=== PATIENT | female | born 1945 | race Caucasian/White ===

== ENCOUNTER 2016-09-20 18:57 | Inpatient (IN) | payer MEDICARE ==
[2016-09-20] MEDS ORDERED: SODIUM CHLORIDE 0.9% 1,000 ML IV STA (19:21)
[2016-09-20] MEDS ORDERED: MAGNESIUM SULFATE-D5W PMX 1 GM in DEXTROSE/WATER 1 100ML.BAG IVPB STA (19:21)
[2016-09-20] MEDS ORDERED: methylPREDNISolone SOD SUCCI 125 MG/2 ML VIAL IV STA (19:21)
[2016-09-20] MEDS ORDERED: EPINEPHrine 1 MG/ML 1 ML AMP IM STA (19:22)
[2016-09-20] MEDS ORDERED: LORazepam 2 MG/ML SYRINGE IV STA (19:23)
--- NOTE | 2016-09-20 19:24 | ED ---
SOB HPI - General Chief Complaint: Shortness of Breath Stated Complaint: GAIL Time Seen by Provider: 09/20/16 19:00 Source: EMS, RN notes reviewed Mode of arrival: EMS Limitations: no limitations - History of Present Illness Initial Comments: This is a 71-year-old female history of COPD who presents with complaints of 2- 3 days of worsening shortness of breath. He was brought in by EMS she did refuse updrafts and BiPAP. She states it makes it worse. She currently is still refusing nebulizer treatment or BiPAP. [place] shortness of breath some chest tightness no fevers chills or sweats she has a cough with no phlegm production. MD Complaint: shortness of breath - Related Data Home Medications Medication Instructions Recorded Confirmed Albuterol Sulfate [Proair Hfa] 2 puff INHALATION RT-Q4H PRN 10/29/13 09/20/16 Aspirin/Acetaminophen/Caffeine 1 tab PO TID PRN 10/29/13 09/20/16 [Excedrin Extra Strength Caplet] Budesonide/Formoterol Fumarate 2 puff INHALATION RT-BID 10/29/13 09/20/16 [Symbicort 160-4.5 Mcg Inhaler] Isosorbide Mononitrate ER [Imdur] 30 mg PO DAILY 10/29/13 09/20/16 Theophylline 24 Hour [Benigno-24] 300 mg PO DAILY 10/29/13 09/20/16 Cholecalciferol [Vitamin D3] 2,000 unit PO DAILY 12/07/14 09/20/16 Ipratropium/Albuterol Sulfate 1 puff INHALATION RT-QID PRN 09/23/15 09/20/16 [Combivent Respimat Inhaler] Lisinopril [Zestril] 20 mg PO DAILY 09/23/15 09/20/16 Hydrocortisone [Cortef] 20 mg PO HS 10/25/15 09/20/16 Tiotropium 18 Mcg/Puff [Spiriva] 1 cap INHALATION RT-DAILY 09/20/16 09/20/16 Allergies Allergy/AdvReac Type Severity Reaction Status Date / Time levofloxacin [From Levaquin] AdvReac Nausea & Verified 09/20/16 19:58 Vomiting & Diarrhea Review of Systems ROS Statement: Those systems with pertinent positive or pertinent negative responses have been documented in the HPI. ROS Other: All systems not noted in ROS Statement are negative. Past Medical History Past Medical History: COPD, Hypertension, Respiratory Disorder Additional Past Medical History / Comment(s): COPD, O2 dependent at 2L/NC ATC, steroid dependent, emphysema, purulent tracheobronchitis, bronchitis, UTI. History of Any Multi-Drug Resistant Organisms: None Reported Past Surgical History: Tubal Ligation Past Anesthesia/Blood Transfusion Reactions: No Reported Reaction Additional Past Anesthesia/Blood Transfusion Reaction / Comment(s): Pt has never recieved blood. Past Psychological History: No Psychological Hx Reported Additional Psychological History / Comment(s): Pt's leobardo (Lisa) lives with her. Pt is O2 dependent at 2L/NC. She uses no assistive device. 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 she performs her own ADLs. She manages her own medications. Smoking Status: Former smoker Past Alcohol Use History: Rare Additional Past Alcohol Use History / Comment(s): Pt started smoking in 1962 and quit in 2012 Past Drug Use History: None Reported - Past Family History Father History Unknown: Yes Family Medical History: No Reported History Mother Family Medical History: Coronary Artery Disease (CAD), Myocardial Infarction (AR ) Additional Family Medical History / Comment(s): Mother had CABG General Exam - General Exam Comments Initial Comments: This a well-developed well-nourished awake alert anxious appearing female she is hyperventilating she is not really wheezing Limitations: no limitations General appearance: alert, anxious, in distress Head exam: Present: atraumatic, normocephalic, normal inspection Eye exam: Present: normal appearance, PERRL, EOMI. Absent: scleral icterus, conjunctival injection, periorbital swelling ENT exam: Present: normal exam, mucous membranes moist Neck exam: Present: normal inspection. Absent: tenderness, meningismus, lymphadenopathy Respiratory exam: Present: respiratory distress, wheezes, accessory muscle use, decreased breath sounds. Absent: rales, rhonchi, stridor Cardiovascular Exam: Present: normal rhythm, tachycardia, normal heart sounds. Absent: systolic murmur, diastolic murmur, rubs, gallop, clicks GI/Abdominal exam: Present: soft, normal bowel sounds. Absent: distended, tenderness, guarding, rebound, rigid Extremities exam: Present: normal inspection, full ROM, normal capillary refill. Absent: tenderness, pedal edema, joint swelling, calf tenderness Back exam: Present: normal inspection Neurological exam: Present: alert, oriented X3, CN II-XII intact Psychiatric exam: Present: normal affect, normal mood Skin exam: Present: warm, dry, intact, normal color. Absent: rash Course Vital Signs 09/20/16 09/20/16 09/20/16 18:58 19:19 19:44 Temperature 98.8 F Pulse Rate 125 H 107 H 105 H Respiratory 28 H 28 H 26 H Rate Blood Pressure 254/123 210/98 193/87 O2 Sat by Pulse 96 94 L 93 L Oximetry 09/20/16 09/20/16 09/20/16 20:11 20:32 21:02 Temperature Pulse Rate 107 H 108 H 111 H Respiratory 22 22 22 Rate Blood Pressure 189/87 177/80 127/65 O2 Sat by Pulse 95 97 97 Oximetry 09/20/16 21:32 Temperature Pulse Rate 109 H Respiratory 20 Rate Blood Pressure 140/67 O2 Sat by Pulse 96 Oximetry - Reevaluation(s) Reevaluation #1: 09/20/16 22:13 I did reevaluate the patient on several occasions she is feeling somewhat better was so wheezing and dyspneic. She is so uncomfortable with the idea try to use a nebulizer. Medical Decision Making - Medical Decision Making I did discuss findings with the patient family she is still dyspneic though improved. She will be admitted with evaluation by pulmonary medicine. She has agreed to try nebulizer. - Lab Data Result diagrams: 09/20/16 19:17 09/20/16 19:17 Lab Results 09/20/16 09/20/16 09/20/16 Range/Units 19:17 19:17 19:17 WBC 6.8 (3.8-10.6) k/uL RBC 4.44 (3.80-5.40) m/uL Hgb 14.5 (11.4-16.0) gm/dL Hct 43.1 (34.0-46.0) % MCV 97.1 (80.0-100.0) fL MCH 32.8 (25.0-35.0) pg MCHC 33.7 (31.0-37.0) g/dL RDW 14.7 (11.5-15.5) % Plt Count 282 (150-450) k/uL Neutrophils % (Manual) 60.0 % Band Neutrophils % 1.0 % Lymphocytes % (Manual) 23.0 % Monocytes % (Manual) 12.0 % Eosinophils % (Manual) 2.0 % Basophils % (Manual) 2.0 % Neutrophils # (Manual) 4.1 (1.3-7.7) k/uL Lymphocytes # (Manual) 1.6 (1.0-4.8) k/uL Monocytes # (Manual) 0.8 (0-1.0) k/uL Eosinophils # (Manual) 0.1 (0-0.7) k/uL Basophils # (Manual) 0.1 (0-0.2) k/uL Nucleated RBCs 0 (0-0) /100 WBC Manual Slide Review Performed PT (9.0-12.0) sec INR (<1.1) APTT (22.0-30.0) sec D-Dimer (<0.60) mg/L FEU Sodium 137 (137-145) mmol/L Potassium 4.4 (3.5-5.1) mmol/L Chloride 98 (98-107) mmol/L Carbon Dioxide 28 (22-30) mmol/L Anion Gap 11 mmol/L BUN 12 (7-17) mg/dL Creatinine 0.44 L (0.52-1.04) mg/dL Est GFR (MDRD) Af Amer >60 (>60 ml/min/1.73 sqM) Est GFR (MDRD) Non-Af >60 (>60 ml/min/1.73 sqM) Glucose 99 (74-99) mg/dL Calcium 9.4 (8.4-10.2) mg/dL Magnesium 1.8 (1.6-2.3) mg/dL Total Bilirubin 0.8 (0.2-1.3) mg/dL AST 30 (14-36) U/L ALT 20 (9-52) U/L Alkaline Phosphatase 64 (38-126) U/L Total Creatine Kinase 110 (30-135) U/L CK-MB (CK-2) 2.3 (0.0-2.4) ng/mL CK-MB (CK-2) Rel Index 2.1 Troponin I <0.012 (0.000-0.034) ng/mL NT-Pro-B Natriuret Pep pg/mL Total Protein 7.3 (6.3-8.2) g/dL Albumin 4.3 (3.5-5.0) g/dL 09/20/16 09/20/16 Range/Units 19:17 19:17 WBC (3.8-10.6) k/uL RBC (3.80-5.40) m/uL Hgb (11.4-16.0) gm/dL Hct (34.0-46.0) % MCV (80.0-100.0) fL MCH (25.0-35.0) pg MCHC (31.0-37.0) g/dL RDW (11.5-15.5) % Plt Count (150-450) k/uL Neutrophils % (Manual) % Band Neutrophils % % Lymphocytes % (Manual) % Monocytes % (Manual) % Eosinophils % (Manual) % Basophils % (Manual) % Neutrophils # (Manual) (1.3-7.7) k/uL Lymphocytes # (Manual) (1.0-4.8) k/uL Monocytes # (Manual) (0-1.0) k/uL Eosinophils # (Manual) (0-0.7) k/uL Basophils # (Manual) (0-0.2) k/uL Nucleated RBCs (0-0) /100 WBC Manual Slide Review PT 10.2 (9.0-12.0) sec INR 1.0 (<1.1) APTT 22.7 (22.0-30.0) sec D-Dimer 0.62 H (<0.60) mg/L FEU Sodium (137-145) mmol/L Potassium (3.5-5.1) mmol/L Chloride (98-107) mmol/L Carbon Dioxide (22-30) mmol/L Anion Gap mmol/L BUN (7-17) mg/dL Creatinine (0.52-1.04) mg/dL Est GFR (MDRD) Af Amer (>60 ml/min/1.73 sqM) Est GFR (MDRD) Non-Af (>60 ml/min/1.73 sqM) Glucose (74-99) mg/dL Calcium (8.4-10.2) mg/dL Magnesium (1.6-2.3) mg/dL Total Bilirubin (0.2-1.3) mg/dL AST (14-36) U/L ALT (9-52) U/L Alkaline Phosphatase (38-126) U/L Total Creatine Kinase (30-135) U/L CK-MB (CK-2) (0.0-2.4) ng/mL CK-MB (CK-2) Rel Index Troponin I (0.000-0.034) ng/mL NT-Pro-B Natriuret Pep 175 pg/mL Total Protein (6.3-8.2) g/dL Albumin (3.5-5.0) g/dL - EKG Data -: EKG Interpreted by Me EKG shows normal: sinus rhythm (Sinus tachycardia with a rate of 108 a [place] interval 124 QRS duration 78 QT/QTC of 332/[address] configuration. Artifact is present) - Radiology Data Radiology results: report reviewed (I did review the imaging and reports), image reviewed Critical Care Time Critical Care Time: Yes Critical Care Time: 31 minutes of critical care time which includes initial presentation with history physical lab and x-ray. Evaluation to responsive therapy. Reevaluation several occasions. Discussion with the admitting service. Admission orders and documentation of the above. Disposition Clinical Impression: Acute exacerbation of chronic obstructive airways disease, Adult respiratory distress syndrome Disposition: ADMITTED IP TO THIS HOSP Condition: Stable
[2016-09-20 19:41] LABS: Aty Lym Flag Slight; CHCM 33.1; HCT 43.1 % (34.0-46.0); HDW 2.66; HGB 14.5 gm/dL (11.4-16.0); MCH 32.8 pg (25.0-35.0); MCHC 33.7 g/dL (31.0-37.0); MCV 97.1 fL (80.0-100.0); Mean Platelet Volume 10.1; RBC 4.44 m/uL (3.80-5.40); RDW 14.7 % (11.5-15.5); WBC 6.8 k/uL (3.8-10.6); WBC (Perox) 7.53
[2016-09-20 20:04] LABS: ALT 20 U/L (9-52); AST 30 U/L (14-36); Alkaline Phosphatase 64 U/L (38-126); Anion Gap 11 mmol/L; Blood Urea Nitrogen 12 mg/dL (7-17); Calcium 9.4 mg/dL (8.4-10.2); Carbon Dioxide 28 mmol/L (22-30); Chloride 98 mmol/L (98-107); Glucose 99 mg/dL (74-99); Magnesium 1.8 mg/dL (1.6-2.3); Non-African American GFR(MDRD) >60 (>60 ml/min/1.73 sqM); Potassium 4.4 mmol/L (3.5-5.1); Sodium 137 mmol/L (137-145); Total Bilirubin 0.8 mg/dL (0.2-1.3); Total Protein 7.3 g/dL (6.3-8.2)
[2016-09-20 20:09] LABS: Creatine Kinase 110 U/L (30-135)
[2016-09-20 20:11] LABS: Partial Thromboplastin Time 22.7 sec (22.0-30.0); Prothrombin Time 10.2 sec (9.0-12.0)
[2016-09-20 20:21] LABS: Creatine Kinase MB 2.3 ng/mL (0.0-2.4); Troponin I <0.012 ng/mL (0.000-0.034)
--- NOTE | 2016-09-20 20:21 | XR ---
EXAMINATION TYPE: XR chest 2V DATE OF EXAM: 09/20/2016 8:00 PM COMPARISON: 04/10/2016 HISTORY: Short of breath TECHNIQUE: Frontal and lateral views of the chest are obtained. FINDINGS: There is no heart failure nor confluent pneumonic infiltrate. There is pulmonary hyperinfl ation. Thoracic aorta is atheromatous. There are no hilar masses. There is 25% anterior wedging of an upper thoracic vertebra. IMPRESSION: COPD. No acute lung disease. No change compared to old exam.
[2016-09-20 20:31] LABS: Add Differential Manual Differential
[2016-09-20 20:32] LABS: Nucleated Red Blood Cells 0 /100 WBC (0-0); Total Cells Counted 100
[2016-09-20 20:33] LABS: Manual Review Performed
[2016-09-20] MEDS ORDERED: IPRATROPIUM-ALBUTEROL 3 ML NEB INHALATION PRN (22:18)
[2016-09-21] MEDS: methylPREDNISolone SOD SUCCI 125 MG/2 ML VIAL IV SCH ×5 (00:23→23:50)
[2016-09-21] MEDS: SODIUM CHLORIDE 0.9% 1,000 ML IV SCH ×3 (00:24→23:48)
[2016-09-21 00:38] VITALS: BMI 22.9
[2016-09-21 07:30] LABS: Glucose,Whole Blood 129 mg/dL (75-99)
[2016-09-21] MEDS: LEVALBUTEROL NEB 1.25 MG/3 ML AMP INHALATION SCH ×2 (07:30→11:29)
[2016-09-21] MEDS ORDERED: TIOTROPIUM 18 MCG/PUFF INHALER INHALATION SCH (08:00)
[2016-09-21] MEDS: ISOSORBIDE MONONITRATE ER 30 MG TAB.ER.24H PO SCH (08:27)
[2016-09-21] MEDS: THEOPHYLLINE 24 HOUR 300 MG CAP.ER.24H PO SCH (08:27)
[2016-09-21] MEDS: LISINOPRIL 20 MG TAB PO SCH (08:27)
[2016-09-21 12:00] LABS: Glucose,Whole Blood 111 mg/dL (75-99)
[2016-09-21] MEDS ORDERED: IPRATROPIUM-ALBUTEROL 3 ML NEB INHALATION PRN (14:44)
[2016-09-21] MEDS ORDERED: SYMBICORT 160-4.5 MCG INHALER INHALATION SCH ×2 (15:00→20:00)
--- NOTE | 2016-09-21 15:39 | HP ---
DATE OF ADMISSION: 09/20/2016 CHIEF COMPLAINT: Shortness of breath. HISTORY OF PRESENT ILLNESS: This 71-year-old woman with a past medical history of multiple medical problems, including COPD, hypertension, history of chronic hypoxic respiratory failure, on home oxygen 2 L nasal cannula, being followed by Dr. Cummings in the outpatient setting, was not feeling well for the past several days. Patient had increasing shortness of breath and cough and sputum. Patient came to the ER and was admitted for further evaluation and treatment. The patient apparently received updrafts and BiPAP per EMS. The patient also had pulse ox around 86 on oxygen. Patient is extremely short of breath, unable to even complete short sentences at this time. Dr. Pendleton's evaluation is in progress. There is no history of any fever, rigor, or chills. No history of any headache, loss of consciousness, seizures. PAST MEDICAL HISTORY: 1. COPD. 2. Hypertension. 3. History of chronic respiratory failure. 4. History of tracheobronchitis. 5. UTI. 6. Tubal ligation. HOME MEDICATIONS: 1. Spiriva 1 puff daily. 2. Benigno-24 300 mg daily. 3. Zestril 20 mg daily. 4. Imdur 30 mg daily. 5. Combivent 1 puff q.i.d. p.r.n. 6. Cortef 20 mg at bedtime. 7. Vitamin D3 2000 units. 8. Symbicort 160/4.5 two puffs b.i.d. 9. Excedrin 1 tablet t.i.d. p.r.n. 10. ProAir HFA 2 puffs q.4 p.r.n. ALLERGIES: LATEX and LEVAQUIN. FAMILY HISTORY: Mother had CABG. No history of heart disease or strokes in the family. SOCIAL HISTORY: Previous history of smoking. Occasional alcohol intake. REVIEW OF SYSTEMS: ENT: No diminishing hearing. No diminished vision. CARDIOVASCULAR SYSTEM: No angina, palpitations. RESPIRATORY SYSTEM: As mentioned earlier. GI: No nausea, vomiting. : No dysuria. NERVOUS SYSTEM: No numbness or weakness. ALLERGY/IMMUNOLOGY: No asthma, hayfever. MUSCULOSKELETAL: As mentioned earlier. HEMATOLOGY/ONCOLOGY: No history of anemia. ENDOCRINE: No history of diabetes, hypothyroidism. CONSTITUTIONAL: As mentioned earlier. DERMATOLOGY: Negative. RHEUMATOLOGY: Negative. PSYCHIATRY: As mentioned earlier. PHYSICAL EXAMINATION: Patient is alert and oriented x3. Pulse is 51, blood pressure 150/72, respiration 22. Extremely short of breath. Temperature 97.7, pulse ox 94% on 2 L, 86% on 4 L. HEENT: Conjunctivae normal. Oral mucosa moist. NECK: Accessory muscles of respiration acting. Extremely short of breath. CARDIOVASCULAR SYSTEM: S1, S2 muffled. No S3. No S4. RESPIRATORY SYSTEM: Breath sounds diminished at the bases. Bilateral scattered rhonchi and expiratory wheezing and crackles present. ABDOMEN: Soft, nontender. No mass palpable. Scaphoid. LEGS: No edema. No swelling. NERVOUS SYSTEM: Higher functions as mentioned earlier. Moves all 4 limbs. No focal motor or sensory deficit. LYMPHATICS: No lymph node palpable in neck, axillae or groin. SKIN: No ulcer, rash, bleeding. LABS: CBC within normal limits. D-dimer is 0.62. Creatinine 0.44. Accu-Cheks 129. ASSESSMENT: 1. Chronic obstructive pulmonary disease, acute exacerbation, with acute purulent tracheobronchitis with acute hypoxic respiratory failure. 2. Chronic hypoxic respiratory failure, on home oxygen at 2 liters nasal cannula. 3. History of hypertension, essential. 4. History of urinary tract infection. 5. Remote history of nicotine dependence. 6. D-dimer 0.62, just about normal. 7. Increased random blood sugar possibly secondary to steroids. RECOMMENDATIONS AND DISCUSSION: In this 71-year-old woman who presented with multiple complex medical issues, we will monitor the patient closely, continue the current medication, continue symptomatic treatment. Otherwise, continue the intensive bronchodilator treatment. I would also recommend IV steroids. Monitor blood sugars closely. Dr. Pendleton is consulted. Guarded prognosis because of the multiple complex medical issues. I would also recommend monitoring the saturation as well. ABG has been ordered and we will review the reports along with Dr. Pendleton. Further recommendations to follow. Once again, the patient is extremely short of breath at rest; unable to complete full sentences.
[2016-09-21] MEDS: FORMOTEROL FUMARATE 20 MCG/2 ML NEBU INHALATION SCH (15:54)
[2016-09-21] MEDS: BUDESONIDE 1 MG/2 ML NEBU INHALATION SCH (15:55)
[2016-09-21] MEDS ORDERED: LEVALBUTEROL NEB (CONC) 1.25 MG/0.5 ML AMP INHALATION SCH (16:00)
[2016-09-21] MEDS ORDERED: IPRATROPIUM-ALBUTEROL 3 ML NEB INHALATION SCH (16:00)
[2016-09-21 16:25] LABS: ABG Base Excess 2.5 mmol/L; ABG HCO3 27 mmol/L (21-25); ABG PCO2 41 mmHg (35-45); ABG PH 7.42 (7.35-7.45); ABG PO2 89 mmHg (83-108); ABG TCO2 28 mmol/L (19-24)
[2016-09-21] MEDS ORDERED: ALBUTEROL NEBULIZED 2.5 MG/3 ML INHALATION PRN (16:40)
[2016-09-21 17:27] LABS: Glucose,Whole Blood 135 mg/dL (75-99)
[2016-09-21] MEDS: INSULIN LISPRO (humaLOG) 300 UNIT/3 ML VIAL SQ SCH ×2 (17:48→21:03)
[2016-09-21] MEDS: LEVALBUTEROL NEB (CONC) 1.25 MG/0.5 ML AMP INHALATION SCH (19:50)
[2016-09-21] MEDS ORDERED: LEVALBUTEROL NEB 1.25 MG/3 ML AMP INHALATION SCH (20:00)
[2016-09-21] MEDS: IPRATROPIUM 0.5 MG/2.5 ML NEBU INHALATION SCH (20:04)
[2016-09-21] MEDS: HEPARIN SODIUM,PORCINE 5,000 UNIT/ML 1 ML VIAL SQ SCH ×2 (20:10→20:13)
[2016-09-21 20:38] LABS: Glucose,Whole Blood 127 mg/dL (75-99)
[2016-09-22] MEDS: methylPREDNISolone SOD SUCCI 125 MG/2 ML VIAL IV SCH ×4 (06:15→23:35)
[2016-09-22 07:08] LABS: Glucose,Whole Blood 108 mg/dL (75-99)
[2016-09-22] MEDS: INSULIN LISPRO (humaLOG) 300 UNIT/3 ML VIAL SQ SCH ×4 (07:48→22:03)
[2016-09-22] MEDS: THEOPHYLLINE 24 HOUR 300 MG CAP.ER.24H PO SCH (07:49)
[2016-09-22] MEDS: ISOSORBIDE MONONITRATE ER 30 MG TAB.ER.24H PO SCH (07:49)
[2016-09-22] MEDS: CHOLECALCIFEROL 1,000 UNIT TAB PO SCH (07:49)
[2016-09-22] MEDS: LISINOPRIL 20 MG TAB PO SCH (07:49)
[2016-09-22] MEDS: HEPARIN SODIUM,PORCINE 5,000 UNIT/ML 1 ML VIAL SQ SCH ×2 (07:49→22:03)
[2016-09-22] MEDS: BUDESONIDE 1 MG/2 ML NEBU INHALATION SCH ×2 (08:28→21:13)
[2016-09-22] MEDS: FORMOTEROL FUMARATE 20 MCG/2 ML NEBU INHALATION SCH ×2 (08:28→21:13)
[2016-09-22] MEDS: IPRATROPIUM 0.5 MG/2.5 ML NEBU INHALATION SCH ×5 (08:29→21:13)
[2016-09-22] MEDS: LEVALBUTEROL NEB (CONC) 1.25 MG/0.5 ML AMP INHALATION SCH ×4 (08:29→21:21)
[2016-09-22] MEDS ORDERED: ALBUTEROL NEBULIZED 2.5 MG/3 ML INHALATION PRN (08:56)
[2016-09-22 08:57] LABS: Basophils % (A) 0 %; CHCM 32.4; Eosinophils % (A) 0 %; HCT 42.5 % (34.0-46.0); HDW 2.31; HGB 14.3 gm/dL (11.4-16.0); Luc # (Auto) 0.11; Luc % (Auto) 1; Lymphocytes # (A) 0.9 k/uL (1.0-4.8); Lymphocytes % (A) 10 %; MCH 33.3 pg (25.0-35.0); MCHC 33.6 g/dL (31.0-37.0); MCV 99.1 fL (80.0-100.0); Mean Platelet Volume 8.3; Monocytes # (A) 0.4 k/uL (0-1.0); Monocytes % (A) 5 %; Neutrophils # (A) 7.5 k/uL (1.3-7.7); Neutrophils % (A) 84 %; RBC 4.29 m/uL (3.80-5.40); RDW 14.7 % (11.5-15.5); WBC 8.9 k/uL (3.8-10.6); WBC (Perox) 9.27
[2016-09-22 09:13] LABS: Anion Gap 9 mmol/L; Blood Urea Nitrogen 14 mg/dL (7-17); Calcium 9.3 mg/dL (8.4-10.2); Carbon Dioxide 32 mmol/L (22-30); Chloride 103 mmol/L (98-107); Glucose 170 mg/dL (74-99); Non-African American GFR(MDRD) >60 (>60 ml/min/1.73 sqM); Potassium 3.9 mmol/L (3.5-5.1); Sodium 144 mmol/L (137-145)
[2016-09-22 11:54] LABS: Glucose,Whole Blood 146 mg/dL (75-99)
[2016-09-22 12:57] LABS: Hemoglobin A1C 5.7 % (4.2-6.1)
--- NOTE | 2016-09-22 16:18 | CONS ---
DATE OF CONSULTATION: 09/22/2016 Reason for consultation is dyspnea. This is a very pleasant 71-year-old female patient, who follows with Dr. Gumaro Cummings as her primary care physician. She has a history of hypertension. She also has a history of severe chronic obstructive pulmonary disease and follows with Dr. Parker in our office for the same. She has Gold stage III/IV COPD with an FEV1 value of 33% of predicted and she is maintained on Spiriva, theophylline, Combivent and some Zocor in the outpatient setting. She had presented here on 09/20/2016 with a week's worth of increasing shortness of breath, cough, and congestion. Her chest x-ray revealed evidence of chronic obstructive pulmonary disease, but no acute pulmonary process. She is seen today in consultation on the regular medical floor. She is awake and alert, in no acute distress. She states she is already breathing easier today as compared to yesterday. She is still quite dyspneic on minimal exertion, still bronchospastic and wheezing. She denies any fever, chills, or night sweats, nonproductive cough. She has been afebrile, maintaining O2 saturation in the 90s on 3 L/min per nasal cannula. There is no leukocytosis. Past medical history includes hypertension, chronic obstructive pulmonary disease, Gold stage IV FEV1 value of 33% of predicted. Past surgical history includes tubal ligation. SOCIAL HISTORY: The patient does have a significant smoking history; however, quit back in 2012. She is oxygen dependent. Denies excessive alcohol use or illicit drug use. Family history is positive for coronary artery disease with bypass surgery in her mother. Allergies are LEVAQUIN. Home medications include Spiriva 1 inhalation daily, theophylline 300 mg daily, Zestril 20 mg daily, Imdur 30 mg daily, Combivent Respimat 1 inhalation q.i.d. p.r.n., Cortef 20 mg at bedtime, Symbicort 160/4.5 two inhalations b.i.d., Excedrin 1 tablet t.i.d. p.r.n., ProAir HFA 2 inhalations q.4 hours p.r.n. A 14-point review of system was conducted; all negative other than as mentioned in the HPI. On physical exam, she is alert and oriented, in no acute distress. Vital signs reveal blood pressure 157/88, heart rate 82, respirations 20, temperature is 97.0. She is 99% O2 saturation on 3 L per minute per nasal cannula. Her head is normocephalic. Sclerae nonicteric. Her neck is supple. Trachea midline. Her lungs have bilateral wheezing, diminished. Her heart is regular, S1, S2. Her abdomen is soft, nontender. Bowel sounds are present. There is no peripheral edema. No clubbing. No cyanosis. Peripheral pulses are intact. INVESTIGATIONS: Chest x-ray revealed evidence of chronic obstructive pulmonary disease, but no acute pulmonary process. Lab results reveal WBC 8.9, hemoglobin 14.3, platelet count 269,000. Sodium 144, potassium 3.9, chloride 103, CO2 of 32, BUN 14, creatinine 0.51. Her medications are reviewed. IMPRESSION: 1. Acute exacerbation of severe oxygen-dependent chronic obstructive pulmonary disease, Gold stage III/IV with an FEV1 value of 33% of predicted. 2. History of chronic tobacco use; however, quit in 2012. 3. Hypertension. PLAN: The patient was seen and evaluated by Dr. Pendleton. There is no evidence of acute pneumonia at this time. Will continue to treat her for her COPD exacerbation with bronchodilators q.i.d. and p.r.n., Pulmicort and Perforomist inhalations b.i.d., IV Solu-Medrol and empiric antibiotics in the form of ceftriaxone. Will continue to follow and make further recommendations based on her clinical status.
[2016-09-22 17:00] LABS: Glucose,Whole Blood 185 mg/dL (75-99)
[2016-09-22 21:17] LABS: Glucose,Whole Blood 112 mg/dL (75-99)
[2016-09-22] MEDS: SODIUM CHLORIDE 0.9% 1,000 ML IV SCH (23:35)
[2016-09-23] MEDS: methylPREDNISolone SOD SUCCI 125 MG/2 ML VIAL IV SCH ×3 (06:18→17:38)
[2016-09-23 06:56] LABS: Glucose,Whole Blood 106 mg/dL (75-99)
[2016-09-23] MEDS: INSULIN LISPRO (humaLOG) 300 UNIT/3 ML VIAL SQ SCH ×4 (07:15→21:36)
[2016-09-23] MEDS: LISINOPRIL 20 MG TAB PO SCH (07:59)
[2016-09-23] MEDS: THEOPHYLLINE 24 HOUR 300 MG CAP.ER.24H PO SCH (07:59)
[2016-09-23] MEDS: ISOSORBIDE MONONITRATE ER 30 MG TAB.ER.24H PO SCH (07:59)
[2016-09-23] MEDS: CHOLECALCIFEROL 1,000 UNIT TAB PO SCH (07:59)
[2016-09-23] MEDS: HEPARIN SODIUM,PORCINE 5,000 UNIT/ML 1 ML VIAL SQ SCH ×2 (08:00→21:36)
[2016-09-23 08:40] LABS: Basophils % (A) 0 %; CH 32.1; CHCM 31.5; Eosinophils % (A) 0 %; HCT 42.9 % (34.0-46.0); HDW 2.17; HGB 13.4 gm/dL (11.4-16.0); Luc # (Auto) 0.14; Luc % (Auto) 1; Lymphocytes # (A) 0.8 k/uL (1.0-4.8); Lymphocytes % (A) 8 %; MCH 32.1 pg (25.0-35.0); MCHC 31.3 g/dL (31.0-37.0); MCV 102.5 fL (80.0-100.0); Macrocytosis Slight; Mean Platelet Volume 8.6; Monocytes # (A) 0.4 k/uL (0-1.0); Monocytes % (A) 4 %; Neutrophils # (A) 8.9 k/uL (1.3-7.7); Neutrophils % (A) 87 %; RBC 4.19 m/uL (3.80-5.40); RDW 14.8 % (11.5-15.5); WBC 10.2 k/uL (3.8-10.6); WBC (Perox) 10.48
[2016-09-23] MEDS: IPRATROPIUM 0.5 MG/2.5 ML NEBU INHALATION SCH ×4 (08:46→20:06)
[2016-09-23] MEDS: LEVALBUTEROL NEB (CONC) 1.25 MG/0.5 ML AMP INHALATION SCH ×4 (08:46→20:06)
[2016-09-23] MEDS: FORMOTEROL FUMARATE 20 MCG/2 ML NEBU INHALATION SCH (08:46)
[2016-09-23] MEDS: BUDESONIDE 1 MG/2 ML NEBU INHALATION SCH (08:47)
[2016-09-23 09:02] LABS: Anion Gap 8 mmol/L; Blood Urea Nitrogen 17 mg/dL (7-17); Calcium 9.6 mg/dL (8.4-10.2); Carbon Dioxide 34 mmol/L (22-30); Chloride 99 mmol/L (98-107); Glucose 147 mg/dL (74-99); Non-African American GFR(MDRD) >60 (>60 ml/min/1.73 sqM); Sodium 141 mmol/L (137-145)
--- NOTE | 2016-09-23 10:19 | PN ---
DATE OF SERVICE: 09/22/2016 This 71 -year-old woman admitted with COPD acute exacerbation , acute purulent tracheobronchitis and significant short of breath. The patient was initially refusing bronchodilator. Currently patient is compliant with treatment. The patient being closely monitored. Dr. Pnedleton is following the patient. Blood sugars are elevated. Past medical history reviewed. REVIEW OF SYSTEMS: CARDIOVASCULAR: No angina. RESPIRATORY: As mentioned earlier. GI: As mentioned earlier. GI: No nausea or vomiting. The patient is extremely short of breath even on minimal exertion. Current medications are: 1. Ventolin q.i.d. and p.r.n. 2. Pulmicort b.i.d. 3. Rocephin 1 gram daily. 4. Vitamin D3. 5. Perforomist 20 grams b.i.d. 6. Heparin. 7. Atrovent. 8. Xopenex. 9. Solu-Medrol 60 IV q.6. 10. Benigno-24. PHYSICAL EXAMINATION: The patient is alert and oriented times three. Pulse 110. Blood pressure 137/76, respiration 18. Temperature 97 degrees. Pulse ox 97% on 4 L. HEENT: Conjunctivae normal. NECK: No jugular venous distention. CARDIOVASCULAR: S1, S2 muffled. RESPIRATORY: Breath sounds diminished at the bases. A few scattered rhonchi and crackles. ABDOMEN: Soft, nontender. No mass palpable. LEGS: No edema. No swelling. CENTRAL NERVOUS SYSTEM: Higher functions as mentioned earlier. Moves all four limbs. LYMPHATICS: No lymph nodes palpable in the neck, axillae or groin. SKIN: No ulcer, rash or bleeding. LABS: CBC within normal limits. CO2 is 32. Other labs are noted. ASSESSMENT: 1. Chronic obstructive pulmonary disease acute exacerbation with acute purulent tracheobronchitis with acute hypoxic respiratory failure, present on admission. 2. Chronic hypoxic respiratory failure on home oxygen 2 liters nasal cannula. 3. History of hypertension, essential. 4. Urinary tract infection. 5. Remote history nicotine dependence. 6. D-dimer 0.62, just above normal. 7. Increased random blood sugar, possibly secondary to steroids. RECOMMENDATIONS AND DISCUSSION: Recommend to continue current medications, continue with bronchodilators, and continue symptomatic treatment. Otherwise I also recommend Xanax for anxiety. Other than that, I would also recommend a blood sugar. Monitor blood sugars closely. Otherwise, Dr. Pendleton's input appreciated. Intensive bronchodilator treatment and antibiotics. Further recommendations to follow. See orders for further details.
[2016-09-23 11:56] LABS: Glucose,Whole Blood 124 mg/dL (75-99)
--- NOTE | 2016-09-23 14:17 | PN ---
This is a 71-year-old female with history of Gold stage III/IV COPD, hypertension, and history of previous heavy tobacco use. Her primary doctor is Dr. Verena Cummings. She was admitted with a diagnosis of COPD exacerbation. She was seen in consultation yesterday. We adjusted her medications accordingly. Anyway, she is doing a bit better, less short of breath. She has a history of hypertension, COPD, as mentioned. Her FEV1 is 33% of predicted. Her medications are reviewed. Anyway, she is improved. Less short of breath. Less chest congestion. Current vital signs are reviewed. Temperature is 97.2, heart rate 84, respiratory 16, blood pressure 164/99, 4 liters saturation 98%. Appears in no acute distress. HEENT examination is grossly unremarkable. Mucous membranes are moist. No oral lesions. Neck is supple. Full range of motion. No adenopathy or thyromegaly. Neck is veins are flat. Cardiovascular examination reveals regular rhythm and rate. S1, S2 normal. No murmur. Lungs reveal a few scattered inspiratory and expiratory rhonchi. Breath sounds are diminished. There are equal bilaterally. No crackles. ABDOMEN: Soft. Bowel sounds are heard. EXTREMITIES: Intact. No cyanosis, clubbing or edema. Labs are reviewed. White count 10.2, hemoglobin 13.4, hematocrit 42.9, platelet count normal. Sodium, potassium and chloride normal. CO2 of 34. BUN and creatinine were 17 and 0.51. Chest x-ray from the twentieth showed changes of COPD. Nothing acute. Medications were adjusted yesterday. ASSESSMENT: 1. Chronic obstructive pulmonary disease exacerbation complicated by purulent tracheobronchitis. 2. History of Gold stage III/IV chronic obstructive pulmonary disease with an FEV1 of 33% of predicted. 3. History of chronic tobacco use, quit in 2012. 4. History of hypertension. PLAN: Continue current medications. The patient is showing improvement. Will continue to follow. She is on appropriate medications including short acting beta agonist, short acting muscarinic antagonist, Solu-Medrol and also on Pulmicort and Perforomist.
[2016-09-23 16:53] LABS: Glucose,Whole Blood 119 mg/dL (75-99)
[2016-09-23] MEDS: SYMBICORT 160-4.5 MCG INHALER INHALATION SCH (20:00)
[2016-09-23] MEDS ORDERED: FORMOTEROL FUMARATE 20 MCG/2 ML NEBU INHALATION SCH (20:00)
[2016-09-23 21:03] LABS: Glucose,Whole Blood 120 mg/dL (75-99)
[2016-09-23] MEDS: SODIUM CHLORIDE 0.9% 1,000 ML IV SCH (22:32)
[2016-09-24] MEDS: methylPREDNISolone SOD SUCCI 125 MG/2 ML VIAL IV SCH ×4 (00:10→17:34)
--- NOTE | 2016-09-24 05:44 | PN ---
DATE OF SERVICE: 09/23/2016 This 71-year-old woman who was admitted with COPD acute exacerbation, also had significant shortness of breath. At this time, the patient is being closely monitored. The patient had multiple bronchodilator treatments. At this time, Dr. Pendleton is following the patient closely. PAST MEDICAL HISTORY: Reviewed. REVIEW OF SYSTEMS: CARDIOVASCULAR: No angina or palpitations. RESPIRATORY: As mentioned earlier. GI: As mentioned earlier. GENITOURINARY: No dysuria. NERVOUS SYSTEM: No numbness or weakness. Current medications are reviewed and include: 1. Acetaminophen aspirin caffeine t.i.d. p.r.n. 2. Ventolin 2.5 q.4 p.r.n. 3. Xanax 0.25 t.i.d. 4. Symbicort 160/4.5 two puffs b.i.d. 5. Rocephin 1 gram daily. 6. Vitamin D3, 2000 units daily. 7. Heparin 5000 subcu b.i.d. 8. Humalog scale. 9. Atrovent . 10. Imdur 30 mg daily. 11. Xopenex 1.25 mg q.i.d. 12. Zestril 20 mg daily. 13. Solu-Medrol 60 mg q.6. 14. Restoril 15 mg q.h.s. 15. Benigno-24, 300 mg daily. PHYSICAL EXAM: The patient is alert and oriented x3. Pulse is 95, blood pressure 149/91, respirations 18, temperature 97 degrees, pulse ox 97% on 4 L. The patient is extremely short of breath and patient's accessory muscle of respiration are active. Patient unable to complete a full sentence on conversation. HEENT: Conjunctivae normal. NECK: No jugular venous distention. CARDIOVASCULAR: S1 and S2, muffled. RESPIRATORY: Breath sounds diminished at the bases. Bilateral scattered rhonchi and expiratory wheezing also present. Crackles also bilaterally heard. ABDOMEN: Soft, nontender. LEGS: No edema, no swelling. NERVOUS SYSTEM: No focal deficits. LABS: WBC 10.2, hemoglobin is 13.4. MCV is 102.5. Accu-Cheks noted. ASSESSMENT: 1. Chronic obstructive pulmonary disease, acute exacerbation, with acute purulent tracheobronchitis with acute hypoxic respiratory failure, present on admission. 2. Chronic hypoxic and hypercarbic respiratory failure, on home oxygen 2 L nasal cannula. 3. History of hypertension, essential. 4. Urinary tract infection. 5. Remote history nicotine dependence. 6. D-dimer 0.62. 7. Increased random blood sugar possibly secondary steroids. 8. Increased CO2. 9. Increased MCV. RECOMMENDATIONS AND DISCUSSION: I recommend to continue current medications and symptomatic treatment. Continue bronchodilators, continue steroids. Continue to follow closely with Dr. Pendleton. Monitor blood sugars closely. Guarded prognosis. Further recommendations to follow. MTDD
[2016-09-24 08:04] LABS: Glucose,Whole Blood 114 mg/dL (75-99)
[2016-09-24] MEDS: INSULIN LISPRO (humaLOG) 300 UNIT/3 ML VIAL SQ SCH ×4 (08:11→22:13)
[2016-09-24] MEDS: SYMBICORT 160-4.5 MCG INHALER INHALATION SCH ×2 (08:19→19:33)
[2016-09-24] MEDS: IPRATROPIUM 0.5 MG/2.5 ML NEBU INHALATION SCH ×4 (08:19→19:36)
[2016-09-24] MEDS: ISOSORBIDE MONONITRATE ER 30 MG TAB.ER.24H PO SCH (08:45)
[2016-09-24] MEDS: HEPARIN SODIUM,PORCINE 5,000 UNIT/ML 1 ML VIAL SQ SCH ×3 (08:45→22:15)
[2016-09-24] MEDS: CHOLECALCIFEROL 1,000 UNIT TAB PO SCH (08:45)
[2016-09-24] MEDS: THEOPHYLLINE 24 HOUR 300 MG CAP.ER.24H PO SCH (08:45)
[2016-09-24] MEDS: LISINOPRIL 20 MG TAB PO SCH (08:45)
[2016-09-24 08:52] LABS: Basophils % (A) 0 %; CH 31.8; CHCM 31.1; Eosinophils % (A) 0 %; HCT 47.3 % (34.0-46.0); HDW 2.17; HGB 14.6 gm/dL (11.4-16.0); Luc % (Auto) 1; Lymphocytes # (A) 0.6 k/uL (1.0-4.8); Lymphocytes % (A) 6 %; MCH 31.8 pg (25.0-35.0); MCHC 30.9 g/dL (31.0-37.0); MCV 102.8 fL (80.0-100.0); Macrocytosis Slight; Mean Platelet Volume 8.5; Monocytes # (A) 0.4 k/uL (0-1.0); Monocytes % (A) 4 %; Neutrophils % (A) 89 %; RDW 14.6 % (11.5-15.5); WBC 10.1 k/uL (3.8-10.6); WBC (Perox) 9.99
[2016-09-24 09:18] LABS: Anion Gap 12 mmol/L; Blood Urea Nitrogen 20 mg/dL (7-17); Calcium 9.4 mg/dL (8.4-10.2); Carbon Dioxide 32 mmol/L (22-30); Chloride 98 mmol/L (98-107); Glucose 156 mg/dL (74-99); Non-African American GFR(MDRD) >60 (>60 ml/min/1.73 sqM); Potassium 3.9 mmol/L (3.5-5.1); Sodium 142 mmol/L (137-145)
[2016-09-24] MEDS: LEVALBUTEROL NEB (CONC) 1.25 MG/0.5 ML AMP INHALATION SCH ×3 (11:17→19:36)
[2016-09-24] MEDS: amLODIPine 5 MG TAB PO SCH (12:29)
[2016-09-24 12:36] LABS: Glucose,Whole Blood 109 mg/dL (75-99)
[2016-09-24 17:42] LABS: Glucose,Whole Blood 120 mg/dL (75-99)
--- NOTE | 2016-09-24 18:02 | P.PN ---
Subjective date of service 09/24/2016. Personal being dictated for Dr. Delgado. Interval history: This a 71-year-old female in a with acute exacerbation COPD and multiple other medical issues. Maintained on Symbicort, Rocephin; declining nebulized bronchodilators, states they worsen her breathing. Short of breath with exertion, not back to baseline yet. Wheezing improved. Positive diet intake with no nausea vomiting. Denies chest pain, or palpitations. Objective - Vital Signs Vital signs: Vital Signs Temp 96.5 F L 09/24/16 14:27 Pulse 90 09/24/16 14:27 Resp 20 09/24/16 14:27 BP 178/87 09/24/16 14:27 Pulse Ox 96 09/24/16 14:27 Intake & Output 09/23/16 09/24/16 09/24/16 18:59 06:59 18:59 Intake Total 960 120 Balance 960 120 Intake: Oral 960 120 Other: Voiding Method Toilet # Voids 2 1 3 - Exam PHYSICAL EXAM: VITAL SIGNS: As above GENERAL: [Sitting up at side of bed, just returning from bathroom, very short of breath] HEENT: [Pupils equal conjunctiva normal.] NECK: [Supple, no JVD] RESPIRATORY EFFORT:[Increased] LUNGS: [Bilateral bases diminished, expiratory wheezing throughout, scattered rhonchi and crackles] CARDIOVASCULAR[regular S1 and S2, no edema] GI: [Abdomen soft, nontender, positive bowel sounds.] PSYCH: [Alert and oriented -3, mood and affect normal.] NEURO: No focal deficits - Labs CBC & Chem 7: 09/24/16 08:27 09/24/16 08:27 Labs: Abnormal Lab Results - Last 24 Hours (Table) 09/23/16 09/24/16 09/24/16 Range/Units 20:58 07:21 08:27 Hct 47.3 H (34.0-46.0) % MCV 102.8 H (80.0-100.0) fL MCHC 30.9 L (31.0-37.0) g/dL Neutrophils # 9.0 H (1.3-7.7) k/uL Lymphocytes # 0.6 L (1.0-4.8) k/uL Carbon Dioxide (22-30) mmol/L BUN (7-17) mg/dL Creatinine (0.52-1.04) mg/dL Glucose (74-99) mg/dL POC Glucose (mg/dL) 120 H 114 H (75-99) mg/dL 09/24/16 09/24/16 09/24/16 Range/Units 08:27 12:34 17:27 Hct (34.0-46.0) % MCV (80.0-100.0) fL MCHC (31.0-37.0) g/dL Neutrophils # (1.3-7.7) k/uL Lymphocytes # (1.0-4.8) k/uL Carbon Dioxide 32 H (22-30) mmol/L BUN 20 H (7-17) mg/dL Creatinine 0.49 L (0.52-1.04) mg/dL Glucose 156 H (74-99) mg/dL POC Glucose (mg/dL) 109 H 120 H (75-99) mg/dL Assessment and Plan Plan: 1. [Acute exacerbation COPD with acute purulent tracheobronchitis]. 2. [Acute hypoxic respiratory failure secondary to the above, present on admission]. 3. [Chronic hypoxic and hypercarbic respiratory failure, on home O2 of 2 L nasal cannula]. 4. [Essential hypertension, history of]. 5. [Acute UTI]. 6. [history of nicotine dependence]. 7. [Daytime air 0.62]. Plan: Continue on current medication regime , nebulized bronchodilators, steroids, antibiotics, monitoring and symptomatic treatment. Blood sugars currently controlled, close monitoring of Accu-Cheks. Melatonin added for insomnia. Follow closely with pulmonary. Further recommendations to follow. The impression and plan of care has been dictated as directed. : I performed a H&P examination of this patient and discussed the same with the dictator. I agree with the dictator's note. Any additional findings/opinions/ etc. will be noted.
--- NOTE | 2016-09-24 18:24 | P.PN ---
Subjective Principal diagnosis: COPD exacerbation This is a very pleasant 71-year-old female patient who follows with Dr. Verena Cummings as her primary care physician. She also follows in our office with Dr. 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 She has been maintained on Spiriva, theophylline, Combivent and albuterol in the outpatient setting. She was admitted on 09/20/2016 for an acute exacerbation of her chronic obstructive pulmonary disease. Her chest x-ray did not reveal any evidence of acute pulmonary process. She is seen again today in follow-up on the regular medical floor. She is awake and alert in no acute distress. She is breathing easier today as compared to yesterday. Not quite back to her baseline. She is maintaining good O2 saturations in the upper 90s on 4 L/m per nasal cannula. She's been afebrile. Objective - Vital Signs Vital signs: Vital Signs Temp 96.5 F L 09/24/16 14:27 Pulse 90 09/24/16 14:27 Resp 20 09/24/16 14:27 BP 178/87 09/24/16 14:27 Pulse Ox 96 09/24/16 14:27 Intake & Output 09/23/16 09/24/16 09/24/16 18:59 06:59 18:59 Intake Total 960 120 Balance 960 120 Intake: Oral 960 120 Other: Voiding Method Toilet # Voids 2 1 3 - Exam GENERAL EXAM: Alert, active, comfortable in no apparent distress. HEAD: Normocephalic. EYES: Normal reaction of pupils, equal size. NOSE: Clear with pink turbinates. THROAT: No erythema or exudates. NECK: No masses, no JVD. CHEST: No chest wall deformity. LUNGS: Equal air entry with bilateral end expiratory wheeze, diminished. CVS: S1 and S2 normal with no audible mumurs, regular rhythm. ABDOMEN: No hepatosplenomegaly, normal bowel sounds, no guarding or rigidity. SPINE: No scoliosis or deformity SKIN: No rashes CENTRAL NERVOUS SYSTEM: No focal deficits, tone is normal in all 4 extremities. Extremities: There is no significant peripheral edema. No clubbing, no cyanosis. Peripheral pulses are intact. - Labs CBC & Chem 7: 09/24/16 08:27 09/24/16 08:27 Labs: Abnormal Lab Results - Last 24 Hours (Table) 09/23/16 09/24/16 09/24/16 Range/Units 20:58 07:21 08:27 Hct 47.3 H (34.0-46.0) % MCV 102.8 H (80.0-100.0) fL MCHC 30.9 L (31.0-37.0) g/dL Neutrophils # 9.0 H (1.3-7.7) k/uL Lymphocytes # 0.6 L (1.0-4.8) k/uL Carbon Dioxide (22-30) mmol/L BUN (7-17) mg/dL Creatinine (0.52-1.04) mg/dL Glucose (74-99) mg/dL POC Glucose (mg/dL) 120 H 114 H (75-99) mg/dL 09/24/16 09/24/16 09/24/16 Range/Units 08:27 12:34 17:27 Hct (34.0-46.0) % MCV (80.0-100.0) fL MCHC (31.0-37.0) g/dL Neutrophils # (1.3-7.7) k/uL Lymphocytes # (1.0-4.8) k/uL Carbon Dioxide 32 H (22-30) mmol/L BUN 20 H (7-17) mg/dL Creatinine 0.49 L (0.52-1.04) mg/dL Glucose 156 H (74-99) mg/dL POC Glucose (mg/dL) 109 H 120 H (75-99) mg/dL Assessment and Plan Plan: Impression: #1 Acute exacerbation of chronic obstructive pulmonary disease. #2 History of significant smoking however quit back in 2012. #3 Hypertension. Plan: The patient was seen and evaluated by Dr. Ventura. She is improved daily however not quite back to her baseline. We'll continue with her current medications including bronchodilators, Symbicort, IV Solu-Medrol. She is on empiric antibiotics in the form of ceftriaxone. Will increase her activity as tolerated. We'll continue to follow.
[2016-09-24 20:53] LABS: Glucose,Whole Blood 196 mg/dL (75-99)
--- NOTE | 2016-09-24 21:44 | PN ---
DATE OF SERVICE: 09/24/2016 This 71-year-old woman who was admitted with COPD, acute exacerbation, with acute purulent tracheobronchitis also had acute respiratory failure. Seen and evaluated the patient along with the nurse practitioner, please refer to the nurse practitioner's notes and impression documented as a scribe for further information. Closely follow with pulmonology. Further recommendations to follow.
[2016-09-24] MEDS: MELATONIN 5 MG TABLET PO SCH (22:17)
[2016-09-24] MEDS: SODIUM CHLORIDE 0.9% 1,000 ML IV SCH (22:19)
[2016-09-25] MEDS: methylPREDNISolone SOD SUCCI 125 MG/2 ML VIAL IV SCH ×5 (00:47→23:34)
[2016-09-25 07:26] LABS: Glucose,Whole Blood 116 mg/dL (75-99)
[2016-09-25] MEDS: LEVALBUTEROL NEB (CONC) 1.25 MG/0.5 ML AMP INHALATION SCH ×4 (08:15→20:20)
[2016-09-25] MEDS: IPRATROPIUM 0.5 MG/2.5 ML NEBU INHALATION SCH ×4 (08:15→20:20)
[2016-09-25] MEDS: INSULIN LISPRO (humaLOG) 300 UNIT/3 ML VIAL SQ SCH ×4 (08:24→21:25)
[2016-09-25] MEDS: LISINOPRIL 20 MG TAB PO SCH (08:25)
[2016-09-25] MEDS: ISOSORBIDE MONONITRATE ER 30 MG TAB.ER.24H PO SCH (08:25)
[2016-09-25] MEDS: amLODIPine 5 MG TAB PO SCH (08:25)
[2016-09-25] MEDS: SYMBICORT 160-4.5 MCG INHALER INHALATION SCH ×2 (08:30→20:20)
[2016-09-25 09:01] LABS: Basophils % (A) 0 %; CH 31.7; CHCM 31.5; Eosinophils % (A) 0 %; HCT 48.7 % (34.0-46.0); HDW 2.18; HGB 15.5 gm/dL (11.4-16.0); Luc # (Auto) 0.07; Luc % (Auto) 1; Lymphocytes # (A) 0.6 k/uL (1.0-4.8); Lymphocytes % (A) 6 %; MCHC 31.7 g/dL (31.0-37.0); Macrocytosis Slight; Mean Platelet Volume 8.6; Monocytes # (A) 0.5 k/uL (0-1.0); Monocytes % (A) 5 %; Neutrophils # (A) 8.9 k/uL (1.3-7.7); Neutrophils % (A) 88 %; RBC 4.83 m/uL (3.80-5.40); RDW 14.5 % (11.5-15.5); WBC 10.1 k/uL (3.8-10.6); WBC (Perox) 9.96
[2016-09-25 09:24] LABS: Anion Gap 11 mmol/L; Blood Urea Nitrogen 22 mg/dL (7-17); Calcium 9.6 mg/dL (8.4-10.2); Carbon Dioxide 36 mmol/L (22-30); Chloride 95 mmol/L (98-107); Glucose 154 mg/dL (74-99); Non-African American GFR(MDRD) >60 (>60 ml/min/1.73 sqM); Sodium 142 mmol/L (137-145)
[2016-09-25 09:30] LABS: Potassium 4.6 mmol/L (3.5-5.1)
[2016-09-25] MEDS ORDERED: SODIUM CHLORIDE 0.65% NASAL SPRAY 44 ML BTL NASAL PRN (09:49)
[2016-09-25] MEDS: HEPARIN SODIUM,PORCINE 5,000 UNIT/ML 1 ML VIAL SQ SCH ×2 (10:14→21:24)
[2016-09-25] MEDS: CHOLECALCIFEROL 1,000 UNIT TAB PO SCH (10:15)
[2016-09-25] MEDS: THEOPHYLLINE 24 HOUR 300 MG CAP.ER.24H PO SCH (10:15)
[2016-09-25 11:45] LABS: Glucose,Whole Blood 121 mg/dL (75-99)
--- NOTE | 2016-09-25 15:53 | P.PN ---
Subjective Principal diagnosis: COPD exacerbation This is a very pleasant 71-year-old female patient who follows with Dr. Verena Cummings as her primary care physician. She also follows in our office with Dr. 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 She has been maintained on Spiriva, theophylline, Combivent and albuterol in the outpatient setting. She was admitted on 09/20/2016 for an acute exacerbation of her chronic obstructive pulmonary disease. Her chest x-ray did not reveal any evidence of acute pulmonary process. She is seen again today in follow-up on the regular medical floor. She is awake and alert in no acute distress. She is breathing easier today as compared to yesterday. Not quite back to her baseline. She is maintaining good O2 saturations in the upper 90s on 4 L/m per nasal cannula. She's been afebrile. The patient is seen again today 09/25/2016 in follow-up. She is awake and alert in no acute distress. She is still quite dyspneic on minimal exertion. She is improved today as compared to yesterday but not quite back to her baseline. She remains bronchospastic and wheezy. He continues to require 4 L/ m per nasal cannula to maintain O2 saturations in the low 90s. She is afebrile. No leukocytosis. Objective - Vital Signs Vital signs: Vital Signs Temp 97.1 F L 09/25/16 15:00 Pulse 98 09/25/16 15:00 Resp 20 09/25/16 15:00 BP 161/83 09/25/16 15:00 Pulse Ox 92 L 09/25/16 15:00 Intake & Output 09/24/16 09/25/16 09/25/16 18:59 06:59 18:59 Intake Total 400 Balance 400 Intake: Oral 400 Other: # Voids 3 2 1 # Bowel Movements 0 - Exam GENERAL EXAM: Alert, active, comfortable in no apparent distress. HEAD: Normocephalic. EYES: Normal reaction of pupils, equal size. NOSE: Clear with pink turbinates. THROAT: No erythema or exudates. NECK: No masses, no JVD. CHEST: No chest wall deformity. LUNGS: Equal air entry with bilateral end expiratory wheeze, diminished. CVS: S1 and S2 normal with no audible mumurs, regular rhythm. ABDOMEN: No hepatosplenomegaly, normal bowel sounds, no guarding or rigidity. SPINE: No scoliosis or deformity SKIN: No rashes CENTRAL NERVOUS SYSTEM: No focal deficits, tone is normal in all 4 extremities. Extremities: There is no significant peripheral edema. No clubbing, no cyanosis. Peripheral pulses are intact. - Labs CBC & Chem 7: 09/25/16 08:20 09/25/16 08:20 Labs: Abnormal Lab Results - Last 24 Hours (Table) 09/24/16 09/24/16 09/25/16 Range/Units 17:27 20:51 07:25 Hct (34.0-46.0) % MCV (80.0-100.0) fL Neutrophils # (1.3-7.7) k/uL Lymphocytes # (1.0-4.8) k/uL Chloride (98-107) mmol/L Carbon Dioxide (22-30) mmol/L BUN (7-17) mg/dL Creatinine (0.52-1.04) mg/dL Glucose (74-99) mg/dL POC Glucose (mg/dL) 120 H 196 H 116 H (75-99) mg/dL 09/25/16 09/25/16 09/25/16 Range/Units 08:20 08:20 11:42 Hct 48.7 H (34.0-46.0) % MCV 101.0 H (80.0-100.0) fL Neutrophils # 8.9 H (1.3-7.7) k/uL Lymphocytes # 0.6 L (1.0-4.8) k/uL Chloride 95 L (98-107) mmol/L Carbon Dioxide 36 H (22-30) mmol/L BUN 22 H (7-17) mg/dL Creatinine 0.46 L (0.52-1.04) mg/dL Glucose 154 H (74-99) mg/dL POC Glucose (mg/dL) 121 H (75-99) mg/dL Assessment and Plan Plan: Impression: #1 Acute exacerbation of chronic obstructive pulmonary disease. #2 History of significant smoking however quit back in 2012. #3 Hypertension. Plan: The patient was seen and evaluated by Dr. Ventura. She is improved daily however not quite back to her baseline. Not quite ready for discharge. We'll continue with her current medications including bronchodilators, Symbicort, IV Solu-Medrol. She is on empiric antibiotics in the form of ceftriaxone. Will increase her activity as tolerated. We'll continue to follow.
[2016-09-25] MEDS: NYSTATIN 100,000 UNIT/ML SUSP 500,000 UNIT/5 ML CUP PO SCH ×2 (16:22→21:25)
[2016-09-25 17:02] LABS: Glucose,Whole Blood 122 mg/dL (75-99)
--- NOTE | 2016-09-25 19:03 | PN ---
DATE OF SERVICE: 09/25/2016 This 71-year-old woman who was admitted with COPD, acute exacerbation, as well as acute respiratory failure still has significant shortness of breath. Slightly better than yesterday. Dr. Ventura is following the patient closely. The patient is on intensive bronchodilators and IV steroids. No chest pain. No palpitation. On exam, alert and oriented x3. Pulse 98, blood pressure 161/83, respiration 20, temperature 97.1, pulse ox 92% on 4 L. HEENT: Conjunctivae normal. NECK: No jugular venous distention. CARDIOVASCULAR SYSTEM: S1, S2 muffled. RESPIRATORY: Breath sounds diminished at the bases. A few scattered rhonchi and crackles. Expiratory wheezing also present. ABDOMEN: Soft, nontender. No mass palpable. LEGS: No edema. No swelling. NERVOUS SYSTEM: Higher functions as mentioned earlier. Moves all 4 limbs. No focal motor or sensory deficit. LYMPHATICS: No lymph node palpable in neck, axillae or groin. SKIN: No ulcer, rash, bleeding. LABS: MCV 101.1. Other labs are noted. ASSESSMENT: 1. Chronic obstructive pulmonary disease, acute exacerbation, with acute purulent tracheobronchitis. 2. Acute hypoxic respiratory failure secondary to above, present on admission. 3. Chronic hypoxic hypercarbic respiratory failure, on home oxygen 2 liters nasal cannula. 4. Essential hypertension history. 5. Acute urinary tract infection, present on admission. 6. History of nicotine dependence. RECOMMENDATIONS AND DISCUSSION: I recommend to continue current medications, continue with the monitoring, symptomatic treatment. Continue with the bronchodilators. Continue with the steroids. Continue the rest of the medications. Prognosis guarded because of multiple complex medical issues. Further recommendations to follow.
[2016-09-25 20:48] LABS: Glucose,Whole Blood 126 mg/dL (75-99)
[2016-09-25] MEDS: MELATONIN 5 MG TABLET PO SCH (21:24)
[2016-09-25] MEDS: SODIUM CHLORIDE 0.9% 1,000 ML IV SCH (21:28)
[2016-09-25] MEDS: ASPIRIN-ACET-CAFF 250-250-65MG 1 EACH TAB PO PRN (23:34)
[2016-09-26] MEDS: methylPREDNISolone SOD SUCCI 125 MG/2 ML VIAL IV SCH ×4 (05:32→23:11)
[2016-09-26 07:00] LABS: Glucose,Whole Blood 128 mg/dL (75-99)
[2016-09-26] MEDS: IPRATROPIUM 0.5 MG/2.5 ML NEBU INHALATION SCH ×4 (07:28→20:23)
[2016-09-26] MEDS: LEVALBUTEROL NEB (CONC) 1.25 MG/0.5 ML AMP INHALATION SCH ×4 (07:28→20:23)
[2016-09-26] MEDS: SYMBICORT 160-4.5 MCG INHALER INHALATION SCH ×2 (07:28→20:22)
[2016-09-26] MEDS: HEPARIN SODIUM,PORCINE 5,000 UNIT/ML 1 ML VIAL SQ SCH ×2 (07:45→21:10)
[2016-09-26] MEDS: LISINOPRIL 20 MG TAB PO SCH (07:45)
[2016-09-26] MEDS: amLODIPine 5 MG TAB PO SCH (07:45)
[2016-09-26] MEDS: THEOPHYLLINE 24 HOUR 300 MG CAP.ER.24H PO SCH (07:45)
[2016-09-26] MEDS: CHOLECALCIFEROL 1,000 UNIT TAB PO SCH (07:45)
[2016-09-26] MEDS: ISOSORBIDE MONONITRATE ER 30 MG TAB.ER.24H PO SCH (07:45)
[2016-09-26] MEDS: NYSTATIN 100,000 UNIT/ML SUSP 500,000 UNIT/5 ML CUP PO SCH ×4 (07:45→21:11)
[2016-09-26] MEDS: INSULIN LISPRO (humaLOG) 300 UNIT/3 ML VIAL SQ SCH ×4 (07:48→21:10)
[2016-09-26 11:55] LABS: Glucose,Whole Blood 122 mg/dL (75-99)
--- NOTE | 2016-09-26 13:20 | PN ---
Patient is admitted with COPD exacerbation. Patient does not believe patient is at her baseline at this point of time. Patient continues to be on systemic steroids and patient is still wheezing, although objectively it appears like her COPD is improving and patient is saturating 97% on 2 L of oxygen. The patient does use 2 L REVIEW OF SYSTEMS: CARDIOVASCULAR: No chest pain, no orthopnea, no PND, no palpitations. RESPIRATORY: As described in HPI. GASTROINTESTINAL: No diarrhea, nausea or vomiting. No abdominal pain. Normoactive bowel sounds. NEUROLOGIC: No headaches, no weakness, no numbness. Medications were reviewed. PHYSICAL EXAMINATION: Temperature 97.1, pulse of 89, respiratory rate 20, blood pressure is 186/88, saturating at 97% on 2 L of O2 nasal cannula. GENERAL: The patient is alert and oriented x3, not in any acute distress. Well developed, well nourished. HEENT: Pupils are round and equally reacting to light. EOMI. No scleral icterus. No conjunctival pallor. Normocephalic, atraumatic. No pharyngeal erythema. No thyromegaly. CARDIOVASCULAR: S1 and S2 present. No murmurs, rubs, or gallops. LUNG EXAMINATION: Patient has significant expiratory wheezing and decreased air entry into bilateral lung kent. No crackles were appreciated. ABDOMEN: Soft, nontender, nondistended, normoactive bowel sounds. No palpable organomegaly. MUSCULOSKELETAL: No joint swelling or deformity. EXTREMITIES: No cyanosis, clubbing, or pedal edema. NEUROLOGICAL: Gross neurological examination did not reveal any focal deficits. SKIN: No rashes. LABORATORY DATA: CBC, CMP no significant abnormality was appreciated. ASSESSMENT AND PLAN: 1. Chronic obstructive pulmonary disease. 2. Acute on chronic hypercapnic respiratory failure secondary to chronic obstructive pulmonary disease exacerbation. 3. Tracheobronchitis. 4. Hypertension. 5. Patient was treated for urinary tract infection, although she does not have any symptoms of that and I do not have UA microbiology and patient received more than 3 days of antibiotics. Rocephin will be discontinued. Patient will be started on doxycycline for her bronchitis. My suspicion is low that patient ever had any urinary tract infection during this hospitalization.
[2016-09-26 17:17] LABS: Glucose,Whole Blood 115 mg/dL (75-99)
--- NOTE | 2016-09-26 17:41 | P.PN ---
Subjective This is a very pleasant 71-year-old female patient who follows with Dr. Verena Cummings as her primary care physician. She also follows in our office with Dr. 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 She has been maintained on Spiriva, theophylline, Combivent and albuterol in the outpatient setting. She was admitted on 09/20/2016 for an acute exacerbation of her chronic obstructive pulmonary disease. Her chest x-ray did not reveal any evidence of acute pulmonary process. She is seen again today in follow-up on the regular medical floor. She is awake and alert in no acute distress. She is breathing easier today as compared to yesterday. Not quite back to her baseline. She is maintaining good O2 saturations in the upper 90s on 4 L/m per nasal cannula. She's been afebrile. The patient is seen again today 09/25/2016 in follow-up. She is awake and alert in no acute distress. She is still quite dyspneic on minimal exertion. She is improved today as compared to yesterday but not quite back to her baseline. She remains bronchospastic and wheezy. He continues to require 4 L/ m per nasal cannula to maintain O2 saturations in the low 90s. She is afebrile. No leukocytosis. On 09/26/2016 I'm seeing this patient in follow-up. The patient was able to get up and shower. She still short of breath and she is noted to have pursed lip breathing even at rest. Enema congested cough. No significant sputum production. Recovery is slow. The patient's COPD is advanced pH is still on oxygen at 4 L/m nasal cannula. No chest pain. No swelling lower extremities. She is taking multiple snacks and eating slowly. No aspiration. No change in mental status. Objective - Vital Signs Vital signs: Vital Signs Temp 96.7 F L 09/26/16 15:00 Pulse 99 09/26/16 15:00 Resp 20 09/26/16 15:00 BP 140/82 09/26/16 15:00 Pulse Ox 93 L 09/26/16 15:00 Intake & Output 09/25/16 09/26/16 09/26/16 18:59 06:59 18:59 Intake Total 400 Balance 400 Intake: Oral 400 Other: Voiding Method Toilet # Voids 1 2 3 # Bowel Movements 0 1 - Exam GENERAL EXAM: Alert, active, comfortable in no apparent distress. HEAD: Normocephalic. EYES: Normal reaction of pupils, equal size. NOSE: Clear with pink turbinates. THROAT: No erythema or exudates. NECK: No masses, no JVD. CHEST: No chest wall deformity. LUNGS: Equal air entry with bilateral end expiratory wheeze, diminished. CVS: S1 and S2 normal with no audible mumurs, regular rhythm. ABDOMEN: No hepatosplenomegaly, normal bowel sounds, no guarding or rigidity. SPINE: No scoliosis or deformity SKIN: No rashes CENTRAL NERVOUS SYSTEM: No focal deficits, tone is normal in all 4 extremities. Extremities: There is no significant peripheral edema. No clubbing, no cyanosis. Peripheral pulses are intact. - Labs CBC & Chem 7: 09/25/16 08:20 09/25/16 08:20 Labs: Abnormal Lab Results - Last 24 Hours (Table) 09/25/16 09/26/16 09/26/16 Range/Units 20:46 06:58 11:54 POC Glucose (mg/dL) 126 H 128 H 122 H (75-99) mg/dL 09/26/16 Range/Units 17:16 POC Glucose (mg/dL) 115 H (75-99) mg/dL Assessment and Plan Plan: Assessment 1 shortness of breath secondary to advanced COPD which is currently in acute exacerbation. The patient is improving slowly and she is showing slow signs of recovery at this point. 2 hypertension 3 history of smoking, quit in 2012 4 chronic hypoxic respiratory failure 5 chronic steroid dependent COPD 6 hyperlipidemia 7 osteoporosis 8 hypertension Plan The patient advanced COPD P she is oxygen and steroid dependent. She is however showing slow recovery signs. She is on Symbicort and theophylline as baseline maintenance pulmonary medications. She was taken prednisone and they' ll arrest on outpatient basis in addition. Currently is also on IV Solu-Medrol which will be continued at a higher dose and will be gradually tapered off as the patient improves. Continue duct secondary to hepatic antibiotic coverage. Chest x-ray is showing COPD and that is no change compared to older chest x- rays and echocardiogram shows a preserved LV function without any significant pulmonary hypertension.
[2016-09-26 20:45] LABS: Glucose,Whole Blood 127 mg/dL (75-99)
[2016-09-26] MEDS: MELATONIN 5 MG TABLET PO SCH ×2 (21:11→21:14)
[2016-09-26] MEDS: DOXYCYCLINE 50 MG CAP PO SCH (21:11)
[2016-09-26] MEDS: SODIUM CHLORIDE 0.9% 1,000 ML IV SCH (23:11)
[2016-09-26] MEDS: TEMAZEPAM 15 MG CAP PO PRN (23:11)
[2016-09-27] MEDS: methylPREDNISolone SOD SUCCI 125 MG/2 ML VIAL IV SCH ×4 (06:07→23:16)
[2016-09-27 07:05] LABS: Glucose,Whole Blood 114 mg/dL (75-99)
[2016-09-27] MEDS: INSULIN LISPRO (humaLOG) 300 UNIT/3 ML VIAL SQ SCH ×4 (07:28→22:05)
[2016-09-27] MEDS: THEOPHYLLINE 24 HOUR 300 MG CAP.ER.24H PO SCH (07:47)
[2016-09-27] MEDS: CHOLECALCIFEROL 1,000 UNIT TAB PO SCH (07:47)
[2016-09-27] MEDS: NYSTATIN 100,000 UNIT/ML SUSP 500,000 UNIT/5 ML CUP PO SCH ×4 (07:47→22:05)
[2016-09-27] MEDS: ISOSORBIDE MONONITRATE ER 30 MG TAB.ER.24H PO SCH (07:47)
[2016-09-27] MEDS: amLODIPine 5 MG TAB PO SCH (07:47)
[2016-09-27] MEDS: DOXYCYCLINE 50 MG CAP PO SCH (07:47)
[2016-09-27] MEDS: LISINOPRIL 20 MG TAB PO SCH (07:47)
[2016-09-27] MEDS: IPRATROPIUM 0.5 MG/2.5 ML NEBU INHALATION SCH ×4 (08:14→20:27)
[2016-09-27] MEDS: SYMBICORT 160-4.5 MCG INHALER INHALATION SCH ×2 (08:14→20:27)
[2016-09-27] MEDS: LEVALBUTEROL NEB (CONC) 1.25 MG/0.5 ML AMP INHALATION SCH ×4 (08:14→20:27)
[2016-09-27] MEDS: HEPARIN SODIUM,PORCINE 5,000 UNIT/ML 1 ML VIAL SQ SCH ×2 (08:22→20:02)
[2016-09-27 09:07] LABS: Anion Gap 10 mmol/L; Blood Urea Nitrogen 24 mg/dL (7-17); Calcium 9.2 mg/dL (8.4-10.2); Carbon Dioxide 34 mmol/L (22-30); Chloride 95 mmol/L (98-107); Glucose 187 mg/dL (74-99); Non-African American GFR(MDRD) >60 (>60 ml/min/1.73 sqM); Sodium 139 mmol/L (137-145)
[2016-09-27 09:13] LABS: CH 31.9; CHCM 31.7; HCT 45.6 % (34.0-46.0); HDW 2.13; MCH 33.3 pg (25.0-35.0); MCHC 32.9 g/dL (31.0-37.0); MCV 101.1 fL (80.0-100.0); Macrocytosis Slight; Mean Platelet Volume 8.6; RBC 4.51 m/uL (3.80-5.40); RDW 14.5 % (11.5-15.5); WBC 11.5 k/uL (3.8-10.6)
[2016-09-27 11:28] LABS: Glucose,Whole Blood 117 mg/dL (75-99)
--- NOTE | 2016-09-27 13:05 | P.PN ---
Subjective This is a very pleasant 71-year-old female patient who follows with Dr. Verena Cummings as her primary care physician. She also follows in our office with Dr. 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 She has been maintained on Spiriva, theophylline, Combivent and albuterol in the outpatient setting. She was admitted on 09/20/2016 for an acute exacerbation of her chronic obstructive pulmonary disease. Her chest x-ray did not reveal any evidence of acute pulmonary process. She is seen again today in follow-up on the regular medical floor. She is awake and alert in no acute distress. She is breathing easier today as compared to yesterday. Not quite back to her baseline. She is maintaining good O2 saturations in the upper 90s on 4 L/m per nasal cannula. She's been afebrile. The patient is seen again today 09/25/2016 in follow-up. She is awake and alert in no acute distress. She is still quite dyspneic on minimal exertion. She is improved today as compared to yesterday but not quite back to her baseline. She remains bronchospastic and wheezy. He continues to require 4 L/ m per nasal cannula to maintain O2 saturations in the low 90s. She is afebrile. No leukocytosis. On 09/26/2016 I'm seeing this patient in follow-up. The patient was able to get up and shower. She still short of breath and she is noted to have pursed lip breathing even at rest. She has a congested cough. No significant sputum production. Recovery is slow. The patient's COPD is advanced pH is still on oxygen at 4 L/m nasal cannula. No chest pain. No swelling lower extremities. She is taking multiple snacks and eating slowly. No aspiration. No change in mental status. On 09/27/2016 the patient is being seen in follow-up. She is more or less the same, with some limited improvement compared to yesterday. No new complaints otherwise for now. The patient is still on IV Solu Medrol high dose, albuterol and Atrovent about treatments around the clock and she completed 7 day course of doxycycline. She is looking for being discharged 4-48 hours. She has advanced COPD. Objective - Vital Signs Vital signs: Vital Signs Temp 96.4 F L 09/27/16 07:00 Pulse 82 09/27/16 07:00 Resp 20 09/27/16 07:00 BP 191/90 09/27/16 07:00 Pulse Ox 95 09/27/16 07:00 Intake & Output 09/26/16 09/27/16 09/27/16 18:59 06:59 18:59 Weight 56.971 kg Other: Voiding Method Toilet # Voids 3 1 - Exam GENERAL EXAM: Alert, active, comfortable in no apparent distress. HEAD: Normocephalic. EYES: Normal reaction of pupils, equal size. NOSE: Clear with pink turbinates. THROAT: No erythema or exudates. NECK: No masses, no JVD. CHEST: No chest wall deformity. LUNGS: Equal air entry with bilateral end expiratory wheeze, diminished. CVS: S1 and S2 normal with no audible mumurs, regular rhythm. ABDOMEN: No hepatosplenomegaly, normal bowel sounds, no guarding or rigidity. SPINE: No scoliosis or deformity SKIN: No rashes CENTRAL NERVOUS SYSTEM: No focal deficits, tone is normal in all 4 extremities. Extremities: There is no significant peripheral edema. No clubbing, no cyanosis. Peripheral pulses are intact. - Labs CBC & Chem 7: 09/27/16 08:39 09/27/16 08:39 Labs: Abnormal Lab Results - Last 24 Hours (Table) 09/26/16 09/26/16 09/27/16 Range/Units 17:16 20:43 07:00 WBC (3.8-10.6) k/uL MCV (80.0-100.0) fL Chloride (98-107) mmol/L Carbon Dioxide (22-30) mmol/L BUN (7-17) mg/dL Creatinine (0.52-1.04) mg/dL Glucose (74-99) mg/dL POC Glucose (mg/dL) 115 H 127 H 114 H (75-99) mg/dL 09/27/16 09/27/16 09/27/16 Range/Units 08:39 08:39 11:27 WBC 11.5 H (3.8-10.6) k/uL MCV 101.1 H (80.0-100.0) fL Chloride 95 L (98-107) mmol/L Carbon Dioxide 34 H (22-30) mmol/L BUN 24 H (7-17) mg/dL Creatinine 0.50 L (0.52-1.04) mg/dL Glucose 187 H (74-99) mg/dL POC Glucose (mg/dL) 117 H (75-99) mg/dL Assessment and Plan Plan: Assessment 1 shortness of breath secondary to advanced COPD which is currently in acute exacerbation. The patient is improving slowly and she is showing slow signs of recovery at this point. 2 hypertension 3 history of smoking, quit in 2012 4 chronic hypoxic respiratory failure 5 chronic steroid dependent COPD 6 hyperlipidemia 7 osteoporosis 8 hypertension Plan Discontinue the doxycycline.. IV Solu Medrol. Switch this patient oral prednisone as of tomorrow. Continue rest of the treatment. Increase level of activity as tolerated. We'll continue to follow.
--- NOTE | 2016-09-27 14:12 | PN ---
Patient is admitted with COPD exacerbation and patient is still having significant expiratory wheezing. REVIEW OF SYSTEMS: CARDIOVASCULAR: No chest pain, no orthopnea, no PND, no palpitations. PULMONARY: As mentioned above. GASTROINTESTINAL: No diarrhea, nausea or vomiting. No abdominal pain. Normoactive bowel sounds. NEUROLOGIC: No headaches, no weakness, no numbness. PHYSICAL EXAMINATION: VITAL SIGNS: Temperature 96.4, pulse of 82, respiratory rate of 20, blood pressure is 191/90, saturating at 93% on room air. GENERAL: The patient is alert and oriented x3, not in any acute distress. Well developed, well nourished. HEENT: Pupils are round and equally reacting to light. EOMI. No scleral icterus. No conjunctival pallor. Normocephalic, atraumatic. No pharyngeal erythema. No thyromegaly. CARDIOVASCULAR: S1 and S2 present. No murmurs, rubs, or gallops. PULMONARY: Significant expiratory wheezing and decreased air entry into bilateral lung kent. Rhonchus breath sounds. ABDOMEN: Soft, nontender, nondistended, normoactive bowel sounds. No palpable organomegaly. MUSCULOSKELETAL: No joint swelling or deformity. EXTREMITIES: No cyanosis, clubbing, or pedal edema. NEUROLOGICAL: Gross neurological examination did not reveal any focal deficits. SKIN: No rashes. LABORATORY DATA: CBC, CMP are abnormal for elevated bicarbonate of 34 secondary to comprehensive metabolic alkalosis. ASSESSMENT AND PLAN: 1. Chronic obstructive lung disease with acute exacerbation. 2. Acute on chronic hypercapnic respiratory failure secondary to chronic obstructive pulmonary disease exacerbation. 3. Tracheal bronchitis. 4. Hypertension. Continue with antibiotics for tracheobronchitis doxycycline. Continue with systemic steroids, inhalational therapy and patient is also on theophylline, which will be continued. Patient is not yet ready for discharge. Regarding her hypertension, I will increase the dose of amlodipine.
[2016-09-27 17:05] LABS: Glucose,Whole Blood 105 mg/dL (75-99)
[2016-09-27] MEDS: MELATONIN 5 MG TABLET PO SCH (20:06)
[2016-09-27 20:32] LABS: Glucose,Whole Blood 172 mg/dL (75-99)
[2016-09-27] MEDS: SODIUM CHLORIDE 0.9% 1,000 ML IV SCH (23:16)
[2016-09-27] MEDS: TEMAZEPAM 15 MG CAP PO PRN (23:16)
[2016-09-28] MEDS: methylPREDNISolone SOD SUCCI 125 MG/2 ML VIAL IV SCH ×4 (05:35→23:46)
[2016-09-28] MEDS: SYMBICORT 160-4.5 MCG INHALER INHALATION SCH ×2 (07:01→20:59)
[2016-09-28] MEDS: LEVALBUTEROL NEB (CONC) 1.25 MG/0.5 ML AMP INHALATION SCH ×4 (07:02→20:49)
[2016-09-28] MEDS: IPRATROPIUM 0.5 MG/2.5 ML NEBU INHALATION SCH ×4 (07:02→20:49)
[2016-09-28 07:25] LABS: Glucose,Whole Blood 110 mg/dL (75-99)
[2016-09-28] MEDS: INSULIN LISPRO (humaLOG) 300 UNIT/3 ML VIAL SQ SCH ×4 (07:26→22:05)
[2016-09-28] MEDS: NYSTATIN 100,000 UNIT/ML SUSP 500,000 UNIT/5 ML CUP PO SCH ×4 (07:49→22:06)
[2016-09-28] MEDS: THEOPHYLLINE 24 HOUR 300 MG CAP.ER.24H PO SCH (07:49)
[2016-09-28] MEDS: LISINOPRIL 20 MG TAB PO SCH (07:49)
[2016-09-28] MEDS: CHOLECALCIFEROL 1,000 UNIT TAB PO SCH (07:49)
[2016-09-28] MEDS: ISOSORBIDE MONONITRATE ER 30 MG TAB.ER.24H PO SCH (07:49)
[2016-09-28] MEDS: amLODIPine 10 MG TAB PO SCH (07:49)
[2016-09-28] MEDS: HEPARIN SODIUM,PORCINE 5,000 UNIT/ML 1 ML VIAL SQ SCH ×2 (07:56→22:05)
[2016-09-28 12:34] LABS: Glucose,Whole Blood 127 mg/dL (75-99)
--- NOTE | 2016-09-28 13:34 | PN ---
Patient is admitted for COPD exacerbation. Patient has very minimal improvement compared to yesterday, although patient is still not at her baseline. REVIEW OF SYSTEMS: CARDIOVASCULAR: No chest pain, no orthopnea, no PND, no palpitations. PULMONARY: As described in HPI. GASTROINTESTINAL: No diarrhea, nausea or vomiting. No abdominal pain. Normoactive bowel sounds. NEUROLOGIC: No headaches, no weakness, no numbness. Medications were reviewed. PHYSICAL EXAMINATION: Temperature 97.2, pulse of 85, respiratory rate 20. Blood pressure 170/86, saturating at 96% on room air. GENERAL: The patient is alert and oriented x3, not in any acute distress. Well developed, well nourished. HEENT: Pupils are round and equally reacting to light. EOMI. No scleral icterus. No conjunctival pallor. Normocephalic, atraumatic. No pharyngeal erythema. No thyromegaly. CARDIOVASCULAR: S1 and S2 present. No murmurs, rubs, or gallops. PULMONARY: Very limited air entry into bilateral lung kent. Minimal expiratory wheezing was appreciated. No crackles were appreciated. Rhonchorous breath sounds. ABDOMEN: Soft, nontender, nondistended, normoactive bowel sounds. No palpable organomegaly. MUSCULOSKELETAL: No joint swelling or deformity. EXTREMITIES: No cyanosis, clubbing, or pedal edema. NEUROLOGICAL: Gross neurological examination did not reveal any focal deficits. SKIN: No rashes. LABORATORY DATA: CBC, CMP are abnormal for shows minimally elevated WBC count of 11,500. ASSESSMENT AND PLAN: 1. Acute exacerbation of chronic obstructive pulmonary disease. 2. Acute on chronic hypercapnic respiratory failure secondary to chronic obstructive pulmonary disease exacerbation. 3. Tracheobronchitis. 4. Hypertension. PLAN: Continue with systemic steroids and inhalation treatments, doxycycline.
[2016-09-28 17:18] LABS: Glucose,Whole Blood 118 mg/dL (75-99)
--- NOTE | 2016-09-28 18:23 | P.PN ---
Subjective This is a very pleasant 71-year-old female patient who follows with Dr. Verena Cummings as her primary care physician. She also follows in our office with Dr. 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 She has been maintained on Spiriva, theophylline, Combivent and albuterol in the outpatient setting. She was admitted on 09/20/2016 for an acute exacerbation of her chronic obstructive pulmonary disease. Her chest x-ray did not reveal any evidence of acute pulmonary process. She is seen again today in follow-up on the regular medical floor. She is awake and alert in no acute distress. She is breathing easier today as compared to yesterday. Not quite back to her baseline. She is maintaining good O2 saturations in the upper 90s on 4 L/m per nasal cannula. She's been afebrile. The patient is seen again today 09/25/2016 in follow-up. She is awake and alert in no acute distress. She is still quite dyspneic on minimal exertion. She is improved today as compared to yesterday but not quite back to her baseline. She remains bronchospastic and wheezy. He continues to require 4 L/ m per nasal cannula to maintain O2 saturations in the low 90s. She is afebrile. No leukocytosis. On 09/26/2016 I'm seeing this patient in follow-up. The patient was able to get up and shower. She still short of breath and she is noted to have pursed lip breathing even at rest. She has a congested cough. No significant sputum production. Recovery is slow. The patient's COPD is advanced pH is still on oxygen at 4 L/m nasal cannula. No chest pain. No swelling lower extremities. She is taking multiple snacks and eating slowly. No aspiration. No change in mental status. On 09/27/2016 the patient is being seen in follow-up. She is more or less the same, with some limited improvement compared to yesterday. No new complaints otherwise for now. The patient is still on IV Solu Medrol high dose, albuterol and Atrovent about treatments around the clock and she completed 7 day course of doxycycline. She is looking for being discharged 4-48 hours. She has advanced COPD. On 09/28/2016 the patient is slightly improved compared to yesterday. Still on IV Solu Medrol. Still on bronchodilators. No new complaint otherwise for now. No chest pain. She has a congested cough. No aspiration. No change in mental status. Objective - Vital Signs Vital signs: Vital Signs Temp 97.4 F L 09/28/16 15:00 Pulse 96 09/28/16 15:00 Resp 20 09/28/16 15:00 BP 168/87 09/28/16 15:00 Pulse Ox 96 09/28/16 15:00 Intake & Output 09/27/16 09/28/16 09/28/16 18:59 06:59 18:59 Intake Total 800 480 Balance 800 480 Weight 56.971 kg Intake: Oral 800 480 Other: Voiding Method Toilet Toilet # Voids 2 3 3 # Bowel Movements 0 - Exam GENERAL EXAM: Alert, active, comfortable in no apparent distress. HEAD: Normocephalic. EYES: Normal reaction of pupils, equal size. NOSE: Clear with pink turbinates. THROAT: No erythema or exudates. NECK: No masses, no JVD. CHEST: No chest wall deformity. LUNGS: Equal air entry with bilateral end expiratory wheeze, diminished. CVS: S1 and S2 normal with no audible mumurs, regular rhythm. ABDOMEN: No hepatosplenomegaly, normal bowel sounds, no guarding or rigidity. SPINE: No scoliosis or deformity SKIN: No rashes CENTRAL NERVOUS SYSTEM: No focal deficits, tone is normal in all 4 extremities. Extremities: There is no significant peripheral edema. No clubbing, no cyanosis. Peripheral pulses are intact. - Labs CBC & Chem 7: 09/27/16 08:39 09/27/16 08:39 Labs: Abnormal Lab Results - Last 24 Hours (Table) 09/27/16 09/28/16 09/28/16 Range/Units 20:18 07:21 12:29 POC Glucose (mg/dL) 172 H 110 H 127 H (75-99) mg/dL 09/28/16 Range/Units 17:16 POC Glucose (mg/dL) 118 H (75-99) mg/dL Assessment and Plan Plan: Assessment 1 shortness of breath secondary to advanced COPD which is currently in acute exacerbation. The patient is improving slowly and she is showing slow signs of recovery at this point. 2 hypertension 3 history of smoking, quit in 2012 4 chronic hypoxic respiratory failure 5 chronic steroid dependent COPD 6 hyperlipidemia 7 osteoporosis 8 hypertension Plan Patient has advanced COPD. Continue same treatment. We'll start tapering steroids as of tomorrow. We'll follow. Prognosis poor based on the presence of an advanced COPD at baseline.
[2016-09-28 21:08] LABS: Glucose,Whole Blood 174 mg/dL (75-99)
[2016-09-28] MEDS: MELATONIN 5 MG TABLET PO SCH (22:07)
[2016-09-28] MEDS: TEMAZEPAM 15 MG CAP PO PRN (22:13)
[2016-09-28] MEDS: SODIUM CHLORIDE 0.9% 1,000 ML IV SCH (22:15)
[2016-09-29] MEDS: methylPREDNISolone SOD SUCCI 125 MG/2 ML VIAL IV SCH (06:51)
[2016-09-29] MEDS: LEVALBUTEROL NEB (CONC) 1.25 MG/0.5 ML AMP INHALATION SCH ×2 (07:05→10:57)
[2016-09-29] MEDS: IPRATROPIUM 0.5 MG/2.5 ML NEBU INHALATION SCH ×2 (07:05→10:57)
[2016-09-29] MEDS: SYMBICORT 160-4.5 MCG INHALER INHALATION SCH ×2 (07:05→19:00)
[2016-09-29 07:34] LABS: Glucose,Whole Blood 110 mg/dL (75-99)
[2016-09-29] MEDS: INSULIN LISPRO (humaLOG) 300 UNIT/3 ML VIAL SQ SCH ×4 (08:21→22:02)
[2016-09-29] MEDS: THEOPHYLLINE 24 HOUR 300 MG CAP.ER.24H PO SCH (09:39)
[2016-09-29] MEDS: amLODIPine 10 MG TAB PO SCH (09:39)
[2016-09-29] MEDS: LISINOPRIL 20 MG TAB PO SCH (09:39)
[2016-09-29] MEDS: NYSTATIN 100,000 UNIT/ML SUSP 500,000 UNIT/5 ML CUP PO SCH ×4 (09:39→22:02)
[2016-09-29] MEDS: HEPARIN SODIUM,PORCINE 5,000 UNIT/ML 1 ML VIAL SQ SCH ×2 (09:40→22:02)
[2016-09-29] MEDS: ISOSORBIDE MONONITRATE ER 30 MG TAB.ER.24H PO SCH (09:40)
[2016-09-29] MEDS: CHOLECALCIFEROL 1,000 UNIT TAB PO SCH ×2 (09:40→10:42)
[2016-09-29 11:38] LABS: Glucose,Whole Blood 117 mg/dL (75-99)
--- NOTE | 2016-09-29 12:50 | P.PN ---
Subjective This is a very pleasant 71-year-old female patient who follows with Dr. Verena Cummings as her primary care physician. She also follows in our office with Dr. 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 She has been maintained on Spiriva, theophylline, Combivent and albuterol in the outpatient setting. She was admitted on 09/20/2016 for an acute exacerbation of her chronic obstructive pulmonary disease. Her chest x-ray did not reveal any evidence of acute pulmonary process. She is seen again today in follow-up on the regular medical floor. She is awake and alert in no acute distress. She is breathing easier today as compared to yesterday. Not quite back to her baseline. She is maintaining good O2 saturations in the upper 90s on 4 L/m per nasal cannula. She's been afebrile. The patient is seen again today 09/25/2016 in follow-up. She is awake and alert in no acute distress. She is still quite dyspneic on minimal exertion. She is improved today as compared to yesterday but not quite back to her baseline. She remains bronchospastic and wheezy. He continues to require 4 L/ m per nasal cannula to maintain O2 saturations in the low 90s. She is afebrile. No leukocytosis. On 09/26/2016 I'm seeing this patient in follow-up. The patient was able to get up and shower. She still short of breath and she is noted to have pursed lip breathing even at rest. She has a congested cough. No significant sputum production. Recovery is slow. The patient's COPD is advanced pH is still on oxygen at 4 L/m nasal cannula. No chest pain. No swelling lower extremities. She is taking multiple snacks and eating slowly. No aspiration. No change in mental status. On 09/27/2016 the patient is being seen in follow-up. She is more or less the same, with some limited improvement compared to yesterday. No new complaints otherwise for now. The patient is still on IV Solu Medrol high dose, albuterol and Atrovent about treatments around the clock and she completed 7 day course of doxycycline. She is looking for being discharged 4-48 hours. She has advanced COPD. On 09/28/2016 the patient is slightly improved compared to yesterday. Still on IV Solu Medrol. Still on bronchodilators. No new complaint otherwise for now. No chest pain. She has a congested cough. No aspiration. No change in mental status. On 09/29 2016 the patient has no new complaints. The patient states that she is stable and there is no worsening in her condition. I am inclined to taper this patient taken off the IV Solu-Medrol and started on a prednisone burst taper. She has no new complaints for now. Objective - Vital Signs Vital signs: Vital Signs Temp 96.7 F L 09/29/16 07:00 Pulse 106 H 09/29/16 07:00 Resp 24 09/29/16 07:00 BP 139/76 09/29/16 12:00 Pulse Ox 92 L 09/29/16 07:00 Intake & Output 09/28/16 09/29/16 09/29/16 18:59 06:59 18:59 Intake Total 480 Balance 480 Intake: Oral 480 Other: # Voids 3 3 # Bowel Movements 0 - Exam GENERAL EXAM: Alert, active, comfortable in no apparent distress. HEAD: Normocephalic. EYES: Normal reaction of pupils, equal size. NOSE: Clear with pink turbinates. THROAT: No erythema or exudates. NECK: No masses, no JVD. CHEST: No chest wall deformity. LUNGS: Equal air entry with bilateral end expiratory wheeze, diminished. CVS: S1 and S2 normal with no audible mumurs, regular rhythm. ABDOMEN: No hepatosplenomegaly, normal bowel sounds, no guarding or rigidity. SPINE: No scoliosis or deformity SKIN: No rashes CENTRAL NERVOUS SYSTEM: No focal deficits, tone is normal in all 4 extremities. Extremities: There is no significant peripheral edema. No clubbing, no cyanosis. Peripheral pulses are intact. - Labs CBC & Chem 7: 09/27/16 08:39 09/27/16 08:39 Labs: Abnormal Lab Results - Last 24 Hours (Table) 09/28/16 09/28/16 09/29/16 Range/Units 17:16 21:07 07:25 POC Glucose (mg/dL) 118 H 174 H 110 H (75-99) mg/dL 09/29/16 Range/Units 11:29 POC Glucose (mg/dL) 117 H (75-99) mg/dL Assessment and Plan Plan: Assessment 1 shortness of breath secondary to advanced COPD which is currently in acute exacerbation. The patient is improving slowly and she is showing slow signs of recovery at this point. 2 hypertension 3 history of smoking, quit in 2012 4 chronic hypoxic respiratory failure 5 chronic steroid dependent COPD 6 hyperlipidemia 7 osteoporosis 8 hypertension Plan Patient has advanced COPD. continued IV Solu-Medrol and put the patient on prednisone 40 mg by mouth daily. Continue Symbicort. Continue theophylline. Continue Xopenex nebulized treatments around the clock. We'll follow. We'll monitor the patient is to be initiated treatment with Spiriva on a daily basis.
[2016-09-29] MEDS: predniSONE 20 MG TAB PO SCH (12:58)
--- NOTE | 2016-09-29 14:36 | PN ---
Patient is admitted with COPD exacerbation. Patient has a little bit of improvement today, although not at her baseline. Patient probably can be discharged tomorrow. REVIEW OF SYSTEMS: CARDIOVASCULAR: No chest pain, no orthopnea, no PND, no palpitations. PULMONARY: As described in HPI. GASTROINTESTINAL: No diarrhea, nausea or vomiting. No abdominal pain. Normoactive bowel sounds. NEUROLOGIC: No headaches, no weakness, no numbness. Medications were reviewed. PHYSICAL EXAMINATION: VITAL SIGNS: Temperature 96.7, pulse of 106, respiratory rate of 24. Blood pressure is highly elevated. Will recheck the blood pressure. Patient's blood pressure at present is 218/102. Saturating at 92% on 2 L of oxygen by nasal cannula. GENERAL: The patient is alert and oriented x3, not in any acute distress. Well developed, well nourished. HEENT: Pupils are round and equally reacting to light. EOMI. No scleral icterus. No conjunctival pallor. Normocephalic, atraumatic. No pharyngeal erythema. No thyromegaly. CARDIOVASCULAR: S1 and S2 present. No murmurs, rubs, or gallops. PULMONARY: Minimal expiratory wheezing was appreciated. ABDOMEN: Soft, nontender, nondistended, normoactive bowel sounds. No palpable organomegaly. MUSCULOSKELETAL: No joint swelling or deformity. EXTREMITIES: No cyanosis, clubbing, or pedal edema. NEUROLOGICAL: Gross neurological examination did not reveal any focal deficits. SKIN: No rashes. LABORATORY DATA: None available. ASSESSMENT AND PLAN: 1. Acute on chronic hypercapnic respiratory failure secondary to chronic obstructive pulmonary disease exacerbation. 2. Tracheobronchitis. 3. Hypertension. PLAN: Continue with present medications, systemic steroids, inhalational treatments. Recheck the blood pressure. If it is still elevated, then will up-titrate lisinopril. Amlodipine 10 mg at this point of time. MTDD
[2016-09-29] MEDS: LEVALBUTEROL NEB 1.25 MG/3 ML AMP INHALATION SCH ×2 (15:12→19:00)
[2016-09-29 16:54] LABS: Glucose,Whole Blood 113 mg/dL (75-99)
[2016-09-29 20:47] LABS: Glucose,Whole Blood 166 mg/dL (75-99)
[2016-09-29] MEDS: MELATONIN 5 MG TABLET PO SCH (22:02)
[2016-09-29] MEDS: ALPRAZolam 0.25 MG TAB PO PRN (22:09)
[2016-09-30] MEDS: SODIUM CHLORIDE 0.9% 1,000 ML IV SCH (00:50)
[2016-09-30 07:20] LABS: Glucose,Whole Blood 82 mg/dL (75-99)
[2016-09-30] MEDS: INSULIN LISPRO (humaLOG) 300 UNIT/3 ML VIAL SQ SCH ×4 (07:40→22:21)
[2016-09-30] MEDS: SYMBICORT 160-4.5 MCG INHALER INHALATION SCH ×2 (07:42→20:51)
[2016-09-30] MEDS: LEVALBUTEROL NEB 1.25 MG/3 ML AMP INHALATION SCH ×4 (07:43→20:50)
[2016-09-30] MEDS: TIOTROPIUM 18 MCG/PUFF INHALER INHALATION SCH (07:43)
[2016-09-30 09:10] LABS: Anion Gap 7 mmol/L; Blood Urea Nitrogen 22 mg/dL (7-17); Calcium 8.7 mg/dL (8.4-10.2); Carbon Dioxide 33 mmol/L (22-30); Chloride 98 mmol/L (98-107); Glucose 101 mg/dL (74-99); Non-African American GFR(MDRD) >60 (>60 ml/min/1.73 sqM); Potassium 4.1 mmol/L (3.5-5.1); Sodium 138 mmol/L (137-145)
[2016-09-30] MEDS: ISOSORBIDE MONONITRATE ER 30 MG TAB.ER.24H PO SCH (09:53)
[2016-09-30] MEDS: predniSONE 20 MG TAB PO SCH (09:53)
[2016-09-30] MEDS: amLODIPine 10 MG TAB PO SCH (09:53)
[2016-09-30] MEDS: HEPARIN SODIUM,PORCINE 5,000 UNIT/ML 1 ML VIAL SQ SCH ×2 (09:54→22:20)
[2016-09-30] MEDS: CHOLECALCIFEROL 1,000 UNIT TAB PO SCH (09:54)
[2016-09-30] MEDS: LISINOPRIL 20 MG TAB PO SCH (09:54)
[2016-09-30] MEDS: THEOPHYLLINE 24 HOUR 300 MG CAP.ER.24H PO SCH (09:54)
[2016-09-30] MEDS: NYSTATIN 100,000 UNIT/ML SUSP 500,000 UNIT/5 ML CUP PO SCH ×4 (09:54→22:25)
--- NOTE | 2016-09-30 11:24 | DS ---
DATE OF ADMISSION: 09/20/2016 DATE OF DISCHARGE: Patient was admitted with COPD exacerbation. Patient had significant improvement. Patient is wheezing today compared to no air movement yesterday, which is an improvement. Patient is saturating at 98% on 2-L and patient is close to her baseline. Patient will be discharged today with doxycycline, weaning dose of prednisone and amlodipine, which was started here. Patient is otherwise clinically doing well. Patient was seen and examined on the day of discharge. Vitals are stable. PHYSICAL EXAMINATION: GENERAL: The patient is alert and oriented x3, not in any acute distress. Well developed, well nourished. HEENT: Pupils are round and equally reacting to light. EOMI. No scleral icterus. No conjunctival pallor. Normocephalic, atraumatic. No pharyngeal erythema. No thyromegaly. CARDIOVASCULAR: S1 and S2 present. No murmurs, rubs, or gallops. PULMONARY: Rhonchus breath sounds and the expiratory wheezing was appreciated. ABDOMEN: Soft, nontender, nondistended, normoactive bowel sounds. No palpable organomegaly. MUSCULOSKELETAL: No joint swelling or deformity. EXTREMITIES: No cyanosis, clubbing, or pedal edema. NEUROLOGICAL: Gross neurological examination did not reveal any focal deficits. SKIN: No rashes. FINAL DIAGNOSES: 1. Acute on chronic hypercapnic respiratory failure secondary to chronic obstructive pulmonary disease exacerbation. 2. Tracheobronchitis. 3. Hypertension. DISCHARGE DIET: Cardiac. Activity as tolerated. Follow up with her PCP in 3 to 7 days; Dr. Gumaro Cummings in 3 to [address] Ventura in about a week. I spent greater than 35 minutes in total discharge process.
[2016-09-30 11:49] LABS: Glucose,Whole Blood 91 mg/dL (75-99)
--- NOTE | 2016-09-30 13:46 | P.PN ---
Subjective This is a very pleasant 71-year-old female patient who follows with Dr. Verena Cummings as her primary care physician. She also follows in our office with Dr. 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 She has been maintained on Spiriva, theophylline, Combivent and albuterol in the outpatient setting. She was admitted on 09/20/2016 for an acute exacerbation of her chronic obstructive pulmonary disease. Her chest x-ray did not reveal any evidence of acute pulmonary process. She is seen again today in follow-up on the regular medical floor. She is awake and alert in no acute distress. She is breathing easier today as compared to yesterday. Not quite back to her baseline. She is maintaining good O2 saturations in the upper 90s on 4 L/m per nasal cannula. She's been afebrile. The patient is seen again today 09/25/2016 in follow-up. She is awake and alert in no acute distress. She is still quite dyspneic on minimal exertion. She is improved today as compared to yesterday but not quite back to her baseline. She remains bronchospastic and wheezy. He continues to require 4 L/ m per nasal cannula to maintain O2 saturations in the low 90s. She is afebrile. No leukocytosis. On 09/26/2016 I'm seeing this patient in follow-up. The patient was able to get up and shower. She still short of breath and she is noted to have pursed lip breathing even at rest. She has a congested cough. No significant sputum production. Recovery is slow. The patient's COPD is advanced pH is still on oxygen at 4 L/m nasal cannula. No chest pain. No swelling lower extremities. She is taking multiple snacks and eating slowly. No aspiration. No change in mental status. On 09/27/2016 the patient is being seen in follow-up. She is more or less the same, with some limited improvement compared to yesterday. No new complaints otherwise for now. The patient is still on IV Solu Medrol high dose, albuterol and Atrovent about treatments around the clock and she completed 7 day course of doxycycline. She is looking for being discharged 4-48 hours. She has advanced COPD. On 09/28/2016 the patient is slightly improved compared to yesterday. Still on IV Solu Medrol. Still on bronchodilators. No new complaint otherwise for now. No chest pain. She has a congested cough. No aspiration. No change in mental status. On 09/29 2016 the patient has no new complaints. The patient states that she is stable and there is no worsening in her condition. I am inclined to taper this patient taken off the IV Solu-Medrol and started on a prednisone burst taper. She has no new complaints for now. On 09/30/2016, Renetta essentially the same. She was taken off the IV Solu Medrol and started on prednisone burst taper. She is resting comfortably in bed. Exercise capacity is quite limited because of her advanced COPD. No cough. No chest pain. No major swelling lower extremities. Objective - Vital Signs Vital signs: Vital Signs Temp 97.3 F L 09/30/16 07:00 Pulse 79 09/30/16 07:00 Resp 22 09/30/16 07:00 BP 153/83 09/30/16 07:00 Pulse Ox 98 09/30/16 07:00 Intake & Output 09/29/16 09/30/16 09/30/16 18:59 06:59 18:59 Other: # Voids 4 2 - Exam GENERAL EXAM: Alert, active, comfortable in no apparent distress. HEAD: Normocephalic. EYES: Normal reaction of pupils, equal size. NOSE: Clear with pink turbinates. THROAT: No erythema or exudates. NECK: No masses, no JVD. CHEST: No chest wall deformity. LUNGS: Equal air entry with bilateral end expiratory wheeze, diminished. CVS: S1 and S2 normal with no audible mumurs, regular rhythm. ABDOMEN: No hepatosplenomegaly, normal bowel sounds, no guarding or rigidity. SPINE: No scoliosis or deformity SKIN: No rashes CENTRAL NERVOUS SYSTEM: No focal deficits, tone is normal in all 4 extremities. Extremities: There is no significant peripheral edema. No clubbing, no cyanosis. Peripheral pulses are intact. - Labs CBC & Chem 7: 09/27/16 08:39 09/30/16 08:37 Labs: Abnormal Lab Results - Last 24 Hours (Table) 09/29/16 09/29/16 09/30/16 Range/Units 16:52 20:42 08:37 Carbon Dioxide 33 H (22-30) mmol/L BUN 22 H (7-17) mg/dL Creatinine 0.50 L (0.52-1.04) mg/dL Glucose 101 H (74-99) mg/dL POC Glucose (mg/dL) 113 H 166 H (75-99) mg/dL Assessment and Plan Plan: Assessment 1 shortness of breath secondary to advanced COPD which is currently in acute exacerbation. 2 hypertension 3 history of smoking, quit in 2012 4 chronic hypoxic respiratory failure 5 chronic steroid dependent COPD 6 hyperlipidemia 7 osteoporosis 8 hypertension Plan Patient has advanced COPD. he has a very limited exercise capacity secondary to advanced COPD. Recovered from the exacerbation has been slow and she has marked limitation in air entry and breath sounds bilaterally. As such she may not do well even on outpatient basis. In any rate, I have stopped IV Solu- Medrol and put the patient prednisone burst taper. Reevaluated condition in a.m. Possible discharge within next 24-48 hours if she is able to handle herself well and perform activities of daily today life while being on a prednisone taper. We'll follow.
[2016-09-30] MEDS: ASPIRIN-ACET-CAFF 250-250-65MG 1 EACH TAB PO PRN (15:43)
[2016-09-30 16:45] LABS: Glucose,Whole Blood 122 mg/dL (75-99)
[2016-09-30 21:25] LABS: Glucose,Whole Blood 106 mg/dL (75-99)
[2016-09-30] MEDS: MELATONIN 5 MG TABLET PO SCH (22:21)
[2016-09-30] MEDS: ALPRAZolam 0.25 MG TAB PO PRN (22:24)
[2016-10-01 07:08] LABS: Glucose,Whole Blood 84 mg/dL (75-99)
[2016-10-01] MEDS: SODIUM CHLORIDE 0.9% 1,000 ML IV SCH (07:16)
[2016-10-01 07:21] VITALS: BP 152/97; PULSE 83; TEMP 97
[2016-10-01] MEDS: NYSTATIN 100,000 UNIT/ML SUSP 500,000 UNIT/5 ML CUP PO SCH ×2 (08:23→12:19)
[2016-10-01] MEDS: ISOSORBIDE MONONITRATE ER 30 MG TAB.ER.24H PO SCH (08:23)
[2016-10-01] MEDS: CHOLECALCIFEROL 1,000 UNIT TAB PO SCH (08:24)
[2016-10-01] MEDS: THEOPHYLLINE 24 HOUR 300 MG CAP.ER.24H PO SCH (08:24)
[2016-10-01] MEDS: LISINOPRIL 20 MG TAB PO SCH (08:24)
[2016-10-01] MEDS: predniSONE 20 MG TAB PO SCH (08:24)
[2016-10-01] MEDS: INSULIN LISPRO (humaLOG) 300 UNIT/3 ML VIAL SQ SCH ×2 (08:25→12:19)
[2016-10-01] MEDS: HEPARIN SODIUM,PORCINE 5,000 UNIT/ML 1 ML VIAL SQ SCH (08:26)
[2016-10-01] MEDS: TIOTROPIUM 18 MCG/PUFF INHALER INHALATION SCH ×2 (08:33→12:18)
[2016-10-01] MEDS: SYMBICORT 160-4.5 MCG INHALER INHALATION SCH (08:34)
[2016-10-01] MEDS: LEVALBUTEROL NEB 1.25 MG/3 ML AMP INHALATION SCH ×2 (08:34→12:18)
[2016-10-01] MEDS: amLODIPine 10 MG TAB PO SCH (09:03)
[2016-10-01 09:43] VITALS: RESP 18
--- NOTE | 2016-10-01 17:10 | P.PN ---
Subjective Principal diagnosis: Acute exacerbation of COPD This is a very pleasant 71-year-old female patient who follows with Dr. Verena Cummings as her primary care physician. She also follows in our office with Dr. 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 She has been maintained on Spiriva, theophylline, Combivent and albuterol in the outpatient setting. She was admitted on 09/20/2016 for an acute exacerbation of her chronic obstructive pulmonary disease. Her chest x-ray did not reveal any evidence of acute pulmonary process. She is seen again today in follow-up on the regular medical floor. She is awake and alert in no acute distress. She is breathing easier today as compared to yesterday. Not quite back to her baseline. She is maintaining good O2 saturations in the upper 90s on 4 L/m per nasal cannula. She's been afebrile. The patient is seen again today 09/25/2016 in follow-up. She is awake and alert in no acute distress. She is still quite dyspneic on minimal exertion. She is improved today as compared to yesterday but not quite back to her baseline. She remains bronchospastic and wheezy. He continues to require 4 L/ m per nasal cannula to maintain O2 saturations in the low 90s. She is afebrile. No leukocytosis. On 09/26/2016 I'm seeing this patient in follow-up. The patient was able to get up and shower. She still short of breath and she is noted to have pursed lip breathing even at rest. She has a congested cough. No significant sputum production. Recovery is slow. The patient's COPD is advanced pH is still on oxygen at 4 L/m nasal cannula. No chest pain. No swelling lower extremities. She is taking multiple snacks and eating slowly. No aspiration. No change in mental status. On 09/27/2016 the patient is being seen in follow-up. She is more or less the same, with some limited improvement compared to yesterday. No new complaints otherwise for now. The patient is still on IV Solu Medrol high dose, albuterol and Atrovent about treatments around the clock and she completed 7 day course of doxycycline. She is looking for being discharged 4-48 hours. She has advanced COPD. On 09/28/2016 the patient is slightly improved compared to yesterday. Still on IV Solu Medrol. Still on bronchodilators. No new complaint otherwise for now. No chest pain. She has a congested cough. No aspiration. No change in mental status. On 09/29 2016 the patient has no new complaints. The patient states that she is stable and there is no worsening in her condition. I am inclined to taper this patient taken off the IV Solu-Medrol and started on a prednisone burst taper. She has no new complaints for now. On 09/30/2016, Renetta essentially the same. She was taken off the IV Solu Medrol and started on prednisone burst taper. She is resting comfortably in bed. Exercise capacity is quite limited because of her advanced COPD. No cough. No chest pain. No major swelling lower extremities. On 10/01/2016, patient is feeling better, and she is being considered for discharge planning today. I believe the patient is at her best, I don't expect further improvement, considering her COPD, she is always a set up for exacerbation and worsening respiratory status, and she is always a set up for readmission. Patient has been treated for almost a week now, I believe discharge planning is appropriate. Objective - Vital Signs Vital signs: Vital Signs Temp 97 F L 10/01/16 07:00 Pulse 83 10/01/16 07:00 Resp 18 10/01/16 08:00 BP 152/97 10/01/16 07:00 Pulse Ox 99 10/01/16 07:00 Intake & Output 09/30/16 10/01/16 10/01/16 18:59 06:59 18:59 Intake Total 700 Balance 700 Intake: Oral 700 Other: # Voids 2 1 # Bowel Movements 0 - Exam GENERAL EXAM: Alert, active, comfortable in no apparent distress. HEAD: Normocephalic. EYES: Normal reaction of pupils, equal size. NOSE: Clear with pink turbinates. THROAT: No erythema or exudates. NECK: No masses, no JVD. CHEST: No chest wall deformity. LUNGS: Equal air entry with bilateral end expiratory wheeze, diminished. CVS: S1 and S2 normal with no audible mumurs, regular rhythm. ABDOMEN: No hepatosplenomegaly, normal bowel sounds, no guarding or rigidity. SPINE: No scoliosis or deformity SKIN: No rashes CENTRAL NERVOUS SYSTEM: No focal deficits, tone is normal in all 4 extremities. Extremities: There is no significant peripheral edema. No clubbing, no cyanosis. Peripheral pulses are intact. - Labs CBC & Chem 7: 09/27/16 08:39 09/30/16 08:37 Labs: Abnormal Lab Results - Last 24 Hours (Table) 09/30/16 Range/Units 21:15 POC Glucose (mg/dL) 106 H (75-99) mg/dL Assessment and Plan Plan: 1 shortness of breath secondary to advanced COPD which is currently in acute exacerbation. 2 hypertension 3 history of smoking, quit in 2012 4 chronic hypoxic respiratory failure 5 chronic steroid dependent COPD 6 hyperlipidemia 7 osteoporosis 8 hypertension Recommendation: Agree with discharge planning, follow-up with me in one week post discharge. Prognosis is definitely poor and guarded. Time with Patient: Less than 30
--- NOTE | 2016-10-02 08:49 | DS ---
DATE OF ADMISSION: 09/20/2016 DATE OF DISCHARGE: 10/01/2016 Patient was discharged from my service yesterday but ended up staying as per recommendation from Dr. Ventura. Patient has a little bit of improvement in her respiratory status, still has expiratory wheezing, which is definitely better on admission. When I evaluated her a couple days, patient barely had any air movement. Please refer to my consider discharge summary from yesterday. Consider the discharge summary as a progress note as patient ended up staying in the hospital. I did see her today and examined her. Vitals are stable. PHYSICAL EXAMINATION: RESPIRATORY: Significant expiratory wheezing. No crackles were appreciated. This is her baseline. Patient is ambulating without any respiratory distress. GENERAL: The patient is alert and oriented x3, not in any acute distress. Well developed, well nourished. HEENT: Pupils are round and equally reacting to light. EOMI. No scleral icterus. No conjunctival pallor. Normocephalic, atraumatic. No pharyngeal erythema. No thyromegaly. CARDIOVASCULAR: S1 and S2 present. No murmurs, rubs, or gallops. ABDOMEN: Soft, nontender, nondistended, normoactive bowel sounds. No palpable organomegaly. MUSCULOSKELETAL: No joint swelling or deformity. EXTREMITIES: No cyanosis, clubbing, or pedal edema. NEUROLOGICAL: Gross neurological examination did not reveal any focal deficits. SKIN: No rashes. Patient will be discharged today. Please refer to my discharge summary from yesterday for further details.
== END 2016-10-01 13:43 | disposition home or self-care (01) | DRG 190 ==
LOC: EC 18:57 → 4MS4W 22:15
PROVIDERS: ADMIT Internal Medicine; ATTEND Internal Medicine
DX: J44.0 Chronic obstructive pulmonary disease with (acute) lower respiratory infection (principal); J20.9 Acute bronchitis, unspecified; J96.21 Acute and chronic respiratory failure with hypoxia; Z99.81 Dependence on supplemental oxygen; J96.22 Acute and chronic respiratory failure with hypercapnia; J44.1 Chronic obstructive pulmonary disease with (acute) exacerbation; I10 Essential (primary) hypertension; E78.5 Hyperlipidemia, unspecified; M81.0 Age-related osteoporosis without current pathological fracture; Z79.52 Long term (current) use of systemic steroids; Z79.899 Other long term (current) drug therapy; Z82.49 Family history of ischemic heart disease and other diseases of the circulatory system; Z87.891 Personal history of nicotine dependence; Z79.82 Long term (current) use of aspirin; Z88.1 Allergy status to other antibiotic agents; Z91.040 Latex allergy status
CPT/HCPCS: 36415; 36600; 71020; 80048; 80053; 82550; 82553; 82805; 83036; 83735; 83880; 84484; 85025; 85027; 85379; 85610; 85730; 87324; 93005; 94640; 94760; 96365; 96372; 99291

== ENCOUNTER 2016-10-17 09:49 | Observation (INO) | payer MEDICARE ==
[2016-10-17] MEDS ORDERED: SODIUM CHLORIDE 0.9% 1,000 ML IV STA ×2 (11:06)
[2016-10-17] MEDS ORDERED: IPRATROPIUM-ALBUTEROL 3 ML NEB INHALATION STA (11:06)
--- NOTE | 2016-10-17 11:08 | ED ---
General Adult HPI - General Chief complaint: Weakness Stated complaint: VOMITING, NAUSEA Time Seen by Provider: 10/17/16 10:36 Source: patient, RN notes reviewed, old records reviewed Mode of arrival: wheelchair Limitations: no limitations - History of Present Illness Initial comments: This is a 71-year-old female ER for evaluation. This patient presents for evaluation of weakness. Weakness fatigue source of breath dehydration. Patient suffers from asthma and steroids. Racquel states she is getting mild swelling in her lower extremities which is new, no new medications or change in medications, stating that she has no fevers, patient denies shortness of breath but states he feels like when she had a history of low sodium before. - Related Data Home Medications Medication Instructions Recorded Confirmed Albuterol Sulfate [Proair Hfa] 2 puff INHALATION RT-Q4H PRN 10/29/13 10/17/16 Budesonide/Formoterol Fumarate 2 puff INHALATION RT-BID 10/29/13 10/17/16 [Symbicort 160-4.5 Mcg Inhaler] Isosorbide Mononitrate ER [Imdur] 30 mg PO DAILY 10/29/13 10/17/16 Theophylline 24 Hour [Benigno-24] 300 mg PO DAILY 10/29/13 10/17/16 Cholecalciferol [Vitamin D3] 2,000 unit PO DAILY 12/07/14 10/17/16 Ipratropium/Albuterol Sulfate 1 puff INHALATION RT-QID PRN 09/23/15 10/17/16 [Combivent Respimat Inhaler] Lisinopril [Zestril] 20 mg PO DAILY 09/23/15 10/17/16 Tiotropium 18 Mcg/Puff [Spiriva] 1 cap INHALATION RT-DAILY@1200 09/20/16 predniSONE 5 mg PO DAILY 10/17/16 10/17/16 Allergies Allergy/AdvReac Type Severity Reaction Status Date / Time Latex, Natural Rubber Allergy Rash/Hives Verified 10/17/16 10:57 levofloxacin [From Levaquin] AdvReac Nausea & Verified 10/17/16 10:57 Vomiting & Diarrhea Review of Systems ROS Statement: Those systems with pertinent positive or pertinent negative responses have been documented in the HPI. ROS Other: All systems not noted in ROS Statement are negative. Past Medical History Past Medical History: COPD, Hypertension, Respiratory Disorder Additional Past Medical History / Comment(s): COPD, O2 dependent at 2L/NC ATC, steroid dependent, emphysema, purulent tracheobronchitis, bronchitis, UTI. History of Any Multi-Drug Resistant Organisms: None Reported Past Surgical History: Tubal Ligation Past Anesthesia/Blood Transfusion Reactions: No Reported Reaction Additional Past Anesthesia/Blood Transfusion Reaction / Comment(s): Pt has never recieved blood. Past Psychological History: No Psychological Hx Reported Additional Psychological History / Comment(s): Pt's leobardo (Lisa) lives with her. Pt is O2 dependent at 2L/NC. She uses no assistive device. 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 she performs her own ADLs. She manages her own medications. Smoking Status: Former smoker Past Alcohol Use History: Rare Additional Past Alcohol Use History / Comment(s): Pt started smoking in 1962 and quit in 2012 Past Drug Use History: None Reported - Past Family History Father History Unknown: Yes Family Medical History: No Reported History Mother Family Medical History: Coronary Artery Disease (CAD), Myocardial Infarction (CA ) Additional Family Medical History / Comment(s): Mother had CABG General Exam Limitations: no limitations General appearance: alert, in no apparent distress, cachectic Head exam: Present: atraumatic, normocephalic, normal inspection Eye exam: Present: normal appearance, PERRL, EOMI. Absent: scleral icterus, conjunctival injection, periorbital swelling ENT exam: Present: mucous membranes dry Neck exam: Present: normal inspection. Absent: tenderness, meningismus, lymphadenopathy Respiratory exam: Present: normal lung sounds bilaterally, wheezes, decreased breath sounds, prolonged expiratory. Absent: respiratory distress, rales, rhonchi, stridor Cardiovascular Exam: Present: regular rate, normal rhythm, normal heart sounds. Absent: systolic murmur, diastolic murmur, rubs, gallop, clicks GI/Abdominal exam: Present: soft, normal bowel sounds. Absent: distended, tenderness, guarding, rebound, rigid Extremities exam: Present: normal inspection, full ROM, normal capillary refill. Absent: tenderness, pedal edema, joint swelling, calf tenderness Back exam: Present: normal inspection Neurological exam: Present: alert, oriented X3, CN II-XII intact Psychiatric exam: Present: normal affect, normal mood Skin exam: Present: warm, dry, intact, normal color. Absent: rash Course Vital Signs 10/17/16 10/17/16 10/17/16 09:54 11:59 12:31 Temperature 98.3 F 97.8 F Pulse Rate 86 94 83 Respiratory 20 16 20 Rate Blood Pressure 92/54 117/59 117/59 O2 Sat by Pulse 93 L 96 97 Oximetry - Reevaluation(s) Reevaluation #1: 10/17/16 13:22 Patient with no clinical improvement here in the emergency room EKG Findings - EKG Comments: EKG Findings:: EKG shows sinus tachycardia rate 101, RI 160, QRS 72, QTc 451 Medical Decision Making - Medical Decision Making 619 and ER for evaluation of weakness, shortness of breath, cough congestion, COPD exacerbation, bilateral lower extremity edema and overall weakness. Patient be admitted for treatment of COPD exacerbation and placed on steroids secondary to possible steroid withdrawal - Lab Data Result diagrams: 10/17/16 10:20 10/17/16 10:20 Lab Results 10/17/16 10/17/16 10/17/16 Range/Units 10:20 10:20 10:20 WBC 6.7 (3.8-10.6) k/uL RBC 3.49 L (3.80-5.40) m/uL Hgb 11.1 L D (11.4-16.0) gm/dL Hct 34.2 (34.0-46.0) % MCV 98.0 (80.0-100.0) fL MCH 31.8 (25.0-35.0) pg MCHC 32.4 (31.0-37.0) g/dL RDW 15.0 (11.5-15.5) % Plt Count 297 (150-450) k/uL Neutrophils % 74 % Lymphocytes % 12 % Monocytes % 8 % Eosinophils % 2 % Basophils % 0 % Neutrophils # 5.0 (1.3-7.7) k/uL Lymphocytes # 0.8 L (1.0-4.8) k/uL Monocytes # 0.6 (0-1.0) k/uL Eosinophils # 0.1 (0-0.7) k/uL Basophils # 0.0 (0-0.2) k/uL PT (9.0-12.0) sec INR (<1.1) APTT (22.0-30.0) sec Sodium 134 L (137-145) mmol/L Potassium 3.7 (3.5-5.1) mmol/L Chloride 97 L (98-107) mmol/L Carbon Dioxide 29 (22-30) mmol/L Anion Gap 8 mmol/L BUN 13 (7-17) mg/dL Creatinine 0.45 L (0.52-1.04) mg/dL Est GFR (MDRD) Af Amer >60 (>60 ml/min/1.73 sqM) Est GFR (MDRD) Non-Af >60 (>60 ml/min/1.73 sqM) Glucose 113 H (74-99) mg/dL Calcium 8.6 (8.4-10.2) mg/dL Phosphorus 4.0 (2.5-4.5) mg/dL Magnesium 1.7 (1.6-2.3) mg/dL Total Bilirubin 0.5 (0.2-1.3) mg/dL AST 18 (14-36) U/L ALT 25 (9-52) U/L Alkaline Phosphatase 55 (38-126) U/L Total Creatine Kinase 36 (30-135) U/L CK-MB (CK-2) 0.7 (0.0-2.4) ng/mL CK-MB (CK-2) Rel Index 1.9 Troponin I <0.012 (0.000-0.034) ng/mL Total Protein 5.8 L (6.3-8.2) g/dL Albumin 3.1 L (3.5-5.0) g/dL Urine Color Urine Appearance (Clear) Urine pH (5.0-8.0) Ur Specific [place] (1.001-1.035) Urine Protein (Negative) Urine Glucose (UA) (Negative) Urine Ketones (Negative) Urine Blood (Negative) Urine Nitrite (Negative) Urine Bilirubin (Negative) Urine Urobilinogen (<2.0) mg/dL Ur Leukocyte Esterase (Negative) Urine RBC (0-5) /hpf Urine WBC (0-5) /hpf Ur Squamous Epith Cells (0-4) /hpf Urine Bacteria (None) /hpf Hyaline Casts (0-2) /lpf Urine Mucus (None) /hpf 10/17/16 10/17/16 Range/Units 10:20 12:03 WBC (3.8-10.6) k/uL RBC (3.80-5.40) m/uL Hgb (11.4-16.0) gm/dL Hct (34.0-46.0) % MCV (80.0-100.0) fL MCH (25.0-35.0) pg MCHC (31.0-37.0) g/dL RDW (11.5-15.5) % Plt Count (150-450) k/uL Neutrophils % % Lymphocytes % % Monocytes % % Eosinophils % % Basophils % % Neutrophils # (1.3-7.7) k/uL Lymphocytes # (1.0-4.8) k/uL Monocytes # (0-1.0) k/uL Eosinophils # (0-0.7) k/uL Basophils # (0-0.2) k/uL PT 10.5 (9.0-12.0) sec INR 1.0 (<1.1) APTT 23.1 (22.0-30.0) sec Sodium (137-145) mmol/L Potassium (3.5-5.1) mmol/L Chloride (98-107) mmol/L Carbon Dioxide (22-30) mmol/L Anion Gap mmol/L BUN (7-17) mg/dL Creatinine (0.52-1.04) mg/dL Est GFR (MDRD) Af Amer (>60 ml/min/1.73 sqM) Est GFR (MDRD) Non-Af (>60 ml/min/1.73 sqM) Glucose (74-99) mg/dL Calcium (8.4-10.2) mg/dL Phosphorus (2.5-4.5) mg/dL Magnesium (1.6-2.3) mg/dL Total Bilirubin (0.2-1.3) mg/dL AST (14-36) U/L ALT (9-52) U/L Alkaline Phosphatase (38-126) U/L Total Creatine Kinase (30-135) U/L CK-MB (CK-2) (0.0-2.4) ng/mL CK-MB (CK-2) Rel Index Troponin I (0.000-0.034) ng/mL Total Protein (6.3-8.2) g/dL Albumin (3.5-5.0) g/dL Urine Color Yellow Urine Appearance Clear (Clear) Urine pH 6.0 (5.0-8.0) Ur Specific [place] 1.007 (1.001-1.035) Urine Protein Negative (Negative) Urine Glucose (UA) Negative (Negative) Urine Ketones Negative (Negative) Urine Blood Moderate H (Negative) Urine Nitrite Negative (Negative) Urine Bilirubin Negative (Negative) Urine Urobilinogen <2.0 (<2.0) mg/dL Ur Leukocyte Esterase Small H (Negative) Urine RBC 1 (0-5) /hpf Urine WBC 1 (0-5) /hpf Ur Squamous Epith Cells 2 (0-4) /hpf Urine Bacteria Occasional H (None) /hpf Hyaline Casts 1 (0-2) /lpf Urine Mucus Occasional H (None) /hpf - Radiology Data Radiology results: report reviewed (Chest x-ray is negative for acute disease), image reviewed Disposition Clinical Impression: Weakness, Acute exacerbation of chronic obstructive airways disease, COPD exacerbation Disposition: ADMITTED IP TO THIS [facility] Condition: Good Referrals: Gumaro Cummings DO [Primary Care Provider] - 1-2 days
[2016-10-17] MEDS ORDERED: methylPREDNISolone SOD SUCCI 125 MG/2 ML VIAL IV STA (11:09)
[2016-10-17 11:33] LABS: Partial Thromboplastin Time 23.1 sec (22.0-30.0); Prothrombin Time 10.5 sec (9.0-12.0)
[2016-10-17 11:47] LABS: ALT 25 U/L (9-52); AST 18 U/L (14-36); Alkaline Phosphatase 55 U/L (38-126); Anion Gap 8 mmol/L; Blood Urea Nitrogen 13 mg/dL (7-17); Calcium 8.6 mg/dL (8.4-10.2); Carbon Dioxide 29 mmol/L (22-30); Chloride 97 mmol/L (98-107); Creatine Kinase 36 U/L (30-135); Glucose 113 mg/dL (74-99); Magnesium 1.7 mg/dL (1.6-2.3); Non-African American GFR(MDRD) >60 (>60 ml/min/1.73 sqM); Potassium 3.7 mmol/L (3.5-5.1); Sodium 134 mmol/L (137-145); Total Bilirubin 0.5 mg/dL (0.2-1.3); Total Protein 5.8 g/dL (6.3-8.2)
[2016-10-17 11:56] LABS: Basophils % (A) 0 %; CHCM 32.8; Eosinophils # (A) 0.1 k/uL (0-0.7); Eosinophils % (A) 2 %; HCT 34.2 % (34.0-46.0); HDW 2.18; Luc # (Auto) 0.29; Luc % (Auto) 4; Lymphocytes # (A) 0.8 k/uL (1.0-4.8); Lymphocytes % (A) 12 %; MCH 31.8 pg (25.0-35.0); MCHC 32.4 g/dL (31.0-37.0); Monocytes # (A) 0.6 k/uL (0-1.0); Monocytes % (A) 8 %; Neutrophils % (A) 74 %; RBC 3.49 m/uL (3.80-5.40); WBC 6.7 k/uL (3.8-10.6); WBC (Perox) 7.28
--- NOTE | 2016-10-17 11:57 | XR ---
EXAMINATION TYPE: XR chest 2V DATE OF EXAM: 10/17/2016 11:52 AM COMPARISON: Chest x-ray September 20, 2016. HISTORY: History of COPD presents with weakness and flulike symptoms. TECHNIQUE: Frontal and lateral views of the chest are obtained. FINDINGS: There is background of chronic emphysematous change with right upper lung scarring redemon strated. There is no new suspicious focal airspace opacity, pleural effusion, or pneumothorax seen. C ardiac silhouette size is stable and upper limits of normal with atherosclerotic thoracic aorta. Osse ous structures are demineralized. IMPRESSION: Chronic emphysematous change without acute pulmonary process.
[2016-10-17 11:59] LABS: Creatine Kinase MB 0.7 ng/mL (0.0-2.4); Troponin I <0.012 ng/mL (0.000-0.034)
[2016-10-17 12:00] LABS: HGB 11.1 gm/dL (11.4-16.0)
[2016-10-17 12:40] LABS: Appearance,Urine Clear (Clear); Bacteria,Urine Occasional /hpf; Bilirubin,Urine Negative (Negative); Glucose,Urine (UA) Negative (Negative); Ketones,Urine Negative (Negative); Leukocyte Esterase,Urine Small (Negative); Mucus,Urine Occasional /hpf; Nitrite,Urine Negative (Negative); Particle Count 8432; Protein,Urine Negative (Negative); RBC,Urine 1 /hpf (0-5); Specific Gravity,Urine 1.007 (1.001-1.035); Squamous Epithelial Cell,Urine 2 /hpf (0-4); UA Billing (MACRO vs. MICRO) MICRO; Urobilinogen,Urine <2.0 mg/dL (<2.0); WBC,Urine 1 /hpf (0-5)
[2016-10-17] MEDS ORDERED: SODIUM CHLORIDE 0.9% 1,000 ML IV SCH (13:30)
[2016-10-17 13:44] VITALS: RESP 16
[2016-10-17] MEDS ORDERED: IPRATROPIUM-ALBUTEROL 3 ML NEB INHALATION SCH (16:00)
[2016-10-17] MEDS: ISOSORBIDE MONONITRATE ER 30 MG TAB.ER.24H PO SCH (16:51)
[2016-10-17] MEDS: THEOPHYLLINE 24 HOUR 300 MG CAP.ER.24H PO SCH (16:51)
[2016-10-17] MEDS ORDERED: ALBUTEROL NEBULIZED 2.5 MG/3 ML INHALATION PRN (17:15)
[2016-10-17] MEDS: IPRATROPIUM-ALBUTEROL 3 ML NEB INHALATION SCH ×2 (17:28→17:29)
[2016-10-17] MEDS ORDERED: predniSONE 20 MG TAB PO SCH (17:30)
[2016-10-17] MEDS ORDERED: methylPREDNISolone SOD SUCCI 125 MG/2 ML VIAL IV SCH (18:00)
--- NOTE | 2016-10-17 18:26 | HP ---
DATE OF ADMISSION: 10/17/2016 PRESENTING COMPLAINT: Weak and tired. HISTORY OF PRESENTING COMPLAINT: This is a pleasant 71-year-old patient of Dr. Mccoy. Patient's chronic stable medical conditions include chronic hypoxic respiratory failure, on 2 liters oxygen at home, hypertension, hyperlipidemia. The patient also has underlying COPD. Patient not able to take nebulized bronchodilators, makes her feel weak. Patient did ( ) from generalized weakness. Still has short of breath and wheezing. Denies cough, daughter at the bedside. The patient unable to get out of the house. The patient's appetite is down. No diarrhea. REVIEW OF SYSTEMS: CONSTITUTIONAL: Tired. Decreased appetite. HEENT: None. RESPIRATORY: As above. CARDIOVASCULAR: None. GASTROINTESTINAL: None. GENITOURINARY: None. MUSCULOSKELETAL: None. Dermatologic: None. HEMATOLOGIC: None. LYMPHATIC: None. PSYCHIATRY: Some anxiety. NEUROLOGICAL: None. PAST HISTORY: COPD, chronic hypoxic respiratory failure, hypertension, hyperlipidemia, hyponatremia. PAST SURGICAL HISTORY: Tubal ligation. SOCIAL HISTORY: The patient lives with her daughter Lisa. Home oxygen 2 liters. Smoked for 50 years; stopped in 2012. No alcohol. FAMILY HISTORY: Mother had coronary artery bypass. HOME MEDICATIONS: 1. Prednisone 5 mg a day. 2. Spiriva 1 capsule ( ) daily. 3. Benigno-24 300 mg p.o. daily. 4. Zestril 20 mg p.o. daily. 5. Imdur ER 30 mg daily. 6. Combivent 1 puff q.i.d. p.r.n. 7. Vitamin D3, 2000 units p.o. daily. 8. Symbicort 160/4.5, 2 puffs b.i.d. 9. Pro-Air HFA 2 puffs q.4 p.r.n. ALLERGIES TO LATEX AND LEVAQUIN. On examination, temperature 98.6, pulse ox 94, respirations 16, blood pressure 140/68, pulse ox 93% on 2 liters. GENERAL APPEARANCE: Average build, lying in bed, tired -appearing. EYES: Pupils equal. Conjunctivae normal. HEENT: External appearance of nose and ears normal. Oral cavity normal. NECK: JVD not raised. Mass not palpable. RESPIRATORY: Effort increased. LUNGS: Diminished poor entry. Prolonged expiration. CARDIOVASCULAR: First and second sounds normal. No edema. ABDOMEN: Soft, nontender. Liver and spleen not palpable. LYMPHATIC: No lymph node palpable in neck or axillae. PSYCHIATRY: Alert and oriented x3. Mood slightly anxious -appearing. NEUROLOGICAL: Pupils equal. Cranial nerves grossly intact. Power and sensation grossly intact. INVESTIGATIONS: White count 6.7, hemoglobin 11.1. Potassium 3.7. BUN 30, creatinine 0.45. EKG sinus tachycardia. Chest x-ray chronic emphysematous changes. ASSESSMENT: 1. Acute chronic obstructive pulmonary disease exacerbation in an ex-smoker. 2. Chronic hypoxic respiratory failure secondary to chronic obstructive pulmonary disease. 3. Hypertension. 4. Hyperlipidemia. 5. Asthenia. 6. Anorexia. PLAN: We will start the patient on oral steroids, put her back on Combivent 4 times a day and nebulized steroids. Patient is not able to take nebulized bronchodilators. Home medications are resumed. Patient is tends to become easily hyponatremic, told to maintain a ( ) diet. Encouraged to be out of bed. Lovenox for DVT prophylaxis. Care was discussed with the patient and daughter at the bedside.
[2016-10-17] MEDS ORDERED: BUDESONIDE 1 MG/2 ML NEBU INHALATION SCH (20:00)
[2016-10-17] MEDS: SYMBICORT 160-4.5 MCG INHALER INHALATION SCH (21:24)
[2016-10-17] MEDS: methylPREDNISolone SOD SUCCI 40 MG/ML 1 ML VIAL IV SCH (23:57)
[2016-10-18] MEDS: IPRATROPIUM-ALBUTEROL 3 ML NEB INHALATION SCH ×2 (08:30→11:51)
[2016-10-18] MEDS: THEOPHYLLINE 24 HOUR 300 MG CAP.ER.24H PO SCH (08:30)
[2016-10-18] MEDS: ISOSORBIDE MONONITRATE ER 30 MG TAB.ER.24H PO SCH (08:30)
[2016-10-18] MEDS: methylPREDNISolone SOD SUCCI 40 MG/ML 1 ML VIAL IV SCH ×2 (08:31→17:18)
[2016-10-18] MEDS ORDERED: ENOXAPARIN 40 MG/0.4 ML SYRINGE SQ SCH (09:00)
[2016-10-18] MEDS ORDERED: LISINOPRIL 20 MG TAB PO SCH (09:00)
[2016-10-18] MEDS ORDERED: CHOLECALCIFEROL 1,000 UNIT TAB PO SCH (11:30)
[2016-10-18] MEDS: SYMBICORT 160-4.5 MCG INHALER INHALATION SCH (11:49)
[2016-10-18] MEDS ORDERED: TIOTROPIUM 18 MCG/PUFF INHALER INHALATION SCH (12:00)
--- NOTE | 2016-10-18 12:37 | US ---
EXAMINATION TYPE: US venous doppler duplex LE BI DATE OF EXAM: 10/18/2016 8:13 AM COMPARISON: NONE CLINICAL HISTORY: 71-year-old female with Pain. SIDE PERFORMED: Bilateral TECHNIQUE: The lower extremity deep venous system is examined utilizing real time linear array sonog arsen with graded compression, doppler sonography and color-flow sonography. FINDINGS: VESSELS IMAGED: External Iliac Vein (EIV) Common Femoral Vein Deep Femoral Vein Greater Saphenous Vein * Femoral Vein Popliteal Vein Small Saphenous Vein * not visualized bilaterally Proximal Calf Veins (* superficial vessels) Right Leg: Negative for DVT Left Leg: Negative for DVT IMPRESSION: No evidence for DVT within the bilateral lower extremities imaged from the groin to the upper calves.
[2016-10-18 15:20] VITALS: PULSE 103; TEMP 98.6
[2016-10-18 15:35] VITALS: BP 164/82
--- NOTE | 2016-10-19 22:51 | DS ---
DATE OF ADMISSION: 10/17/2016 DATE OF DISCHARGE: 10/18/2016 FINAL DIAGNOSES: 1. Acute chronic obstructive pulmonary disease exacerbation in an ex-smoker. 2. Chronic hypoxic respiratory failure secondary to chronic obstructive pulmonary disease. 3. Essential hypertension. 4. Hyperlipidemia. 5. Asthenia. 6. Anorexia. HOSPITAL COURSE: This patient cannot take nebulized bronchodilators. Presently weak, tired, COPD exacerbation, responded well to burst of steroids and her usual bronchodilators. Doing better by the time of discharge. On exam, LUNGS: Decreased breath sounds. Mild wheezing. DISCHARGE MEDICATIONS: 1. ProAir 2 puffs q.4 p.r.n. 2. Symbicort 160/4.5, 2 puffs b.i.d. 3. Imdur ER 30 mg a day. 4. Benigno-24 300 mg p.o. daily. 5. Vitamin D3 2000 units p.o. daily. 6. Combivent Respimat 1 puff inhalation q.i.d. p.r.n. 7. Zestril 20 mg p.o. daily. 8. Spiriva 1 capsule p.o. daily. 9. Prednisone taper, then down to 5 mg a day. Patient to follow with Dr. Cummings in 3 days.
== END 2016-10-18 17:11 | disposition home or self-care (01) ==
LOC: EC 09:49 → 3OBS 13:20
PROVIDERS: ADMIT Hospitalist; ATTEND Hospitalist
DX: J44.1 Chronic obstructive pulmonary disease with (acute) exacerbation (principal); J96.11 Chronic respiratory failure with hypoxia; I10 Essential (primary) hypertension; E78.5 Hyperlipidemia, unspecified; R53.1 Weakness; R63.0 Anorexia; Z79.51 Long term (current) use of inhaled steroids; Z79.899 Other long term (current) drug therapy; Z79.52 Long term (current) use of systemic steroids; Z88.1 Allergy status to other antibiotic agents; Z91.040 Latex allergy status; Z99.81 Dependence on supplemental oxygen; Z87.891 Personal history of nicotine dependence; Z82.49 Family history of ischemic heart disease and other diseases of the circulatory system
CPT/HCPCS: 96361 ×2; 96376 ×2; 96374; 99285; 36415; 94640 ×2; 93005; 80053; 82550; 82553; 83735; 84100; 84484; 85025; 85610; 85730; 81001; 87086; 71020; 93970; G0378 ×2; J2920 ×2; J2930

== ENCOUNTER 2016-12-16 18:40 | Emergency (ER) | payer MEDICARE ==
[2016-12-16] MEDS ORDERED: ONDANSETRON 4 MG/2 ML VIAL IVP STA (19:02)
[2016-12-16] MEDS ORDERED: SODIUM CHLORIDE 0.9% 1,000 ML IV STA (19:02)
--- NOTE | 2016-12-16 19:13 | ED ---
Nausea/Vomiting/Diarrhea HPI - General Chief complaint: Nausea/Vomiting/Diarrhea Stated complaint: Nausea/Vomiting Time Seen by Provider: 12/16/16 18:57 Source: patient, EMS, RN notes reviewed Mode of arrival: EMS Limitations: no limitations - History of Present Illness Initial comments: This a 71-year-old female presents emergency Department with chief complaint of nausea vomiting. Patient states she woke up nauseated this morning has continued to vomit throughout the day states it is mostly bile at this time. Patient states she has no abdominal discomfort this time. Patient denies diarrhea or constipation. Patient has fever, chills, chest pain, increased shortness breath, headache, dizziness, flank pain, dysuria or hematuria. Patient had a prior to location no other abdominal surgeries. - Related Data Home Medications Medication Instructions Recorded Confirmed Albuterol Sulfate [Proair Hfa] 2 puff INHALATION RT-Q4H PRN 10/29/13 12/16/16 Budesonide/Formoterol Fumarate 2 puff INHALATION RT-BID 10/29/13 12/16/16 [Symbicort 160-4.5 Mcg Inhaler] Isosorbide Mononitrate ER [Imdur] 30 mg PO DAILY 10/29/13 12/16/16 Theophylline 24 Hour [Benigno-24] 300 mg PO DAILY 10/29/13 12/16/16 Cholecalciferol [Vitamin D3] 2,000 unit PO DAILY 12/07/14 12/16/16 Ipratropium/Albuterol Sulfate 1 puff INHALATION RT-QID PRN 09/23/15 12/16/16 [Combivent Respimat Inhaler] Lisinopril [Zestril] 20 mg PO DAILY 09/23/15 12/16/16 Tiotropium 18 Mcg/Puff [Spiriva] 1 cap INHALATION RT-DAILY@1200 09/20/16 predniSONE 5 mg PO DAILY 10/17/16 12/16/16 Furosemide [Lasix] 20 mg PO Q48H 12/16/16 12/16/16 Previous Rx's Medication Instructions Recorded Ondansetron Odt [Zofran Odt] 4 mg PO Q8HR PRN #10 tab 12/16/16 Allergies Allergy/AdvReac Type Severity Reaction Status Date / Time Latex, Natural Rubber Allergy Rash/Hives Verified 12/16/16 19:15 levofloxacin [From Levaquin] AdvReac Nausea & Verified 12/16/16 19:15 Vomiting & Diarrhea Review of Systems ROS Statement: Those systems with pertinent positive or pertinent negative responses have been documented in the HPI. ROS Other: All systems not noted in ROS Statement are negative. Past Medical History Past Medical History: COPD, Hypertension, Pneumonia, Respiratory Disorder Additional Past Medical History / Comment(s): Pt recently admitted to [facility] with acute on chronic hypercapnic respiratory failure 2nday to COPD/ tracheobronchitis. Other HX: O2 dependent at 2L/NC ATC, steroid dependent, emphysema, purulent tracheobronchitis, bronchitis, UTI, hyponatremia, migraines but none for years, hepatitis A as a child with jaundice, hemorrhoids. History of Any Multi-Drug Resistant Organisms: None Reported Past Surgical History: Tubal Ligation Past Anesthesia/Blood Transfusion Reactions: No Reported Reaction Additional Past Anesthesia/Blood Transfusion Reaction / Comment(s): Pt has never recieved blood. Past Psychological History: No Psychological Hx Reported Smoking Status: Former smoker - Past Family History Father History Unknown: Yes Family Medical History: No Reported History Mother Family Medical History: Coronary Artery Disease (CAD), Myocardial Infarction ([place] ) Additional Family Medical History / Comment(s): Mother had CABG General Exam Limitations: no limitations General appearance: alert, in no apparent distress Head exam: Present: atraumatic, normocephalic, normal inspection Eye exam: Present: normal appearance, PERRL, EOMI. Absent: scleral icterus, conjunctival injection, periorbital swelling ENT exam: Present: normal oropharynx Neck exam: Present: normal inspection, full ROM. Absent: tenderness, meningismus, lymphadenopathy Respiratory exam: Present: normal lung sounds bilaterally. Absent: respiratory distress, wheezes, rales, rhonchi, stridor Cardiovascular Exam: Present: regular rate, normal rhythm, normal heart sounds. Absent: systolic murmur, diastolic murmur, rubs, gallop, clicks GI/Abdominal exam: Present: soft, normal bowel sounds. Absent: distended, tenderness, guarding, rebound, rigid Back exam: Absent: CVA tenderness (R), CVA tenderness (L) Psychiatric exam: Present: normal affect, normal mood Skin exam: Present: warm, dry, intact, normal color. Absent: rash Course Vital Signs 12/16/16 12/16/16 18:48 21:01 Temperature 99.4 F 100.7 F H Pulse Rate 98 74 Respiratory 20 20 Rate Blood Pressure 188/77 166/74 O2 Sat by Pulse 93 L 96 Oximetry Medical Decision Making - Medical Decision Making 71-year-old female presented for nausea vomiting. Patient's lab work, x-rays and urinalysis does not show an acute abnormality's. Patient states that her nausea has resolved with antiemetics here. Patient was hydrated. Patient most likely has gastritis. Patient agrees to be discharged on Zofran return parameters were discussed. - Lab Data Result diagrams: 12/16/16 19:35 12/16/16 19:35 Lab Results 12/16/16 12/16/16 12/16/16 Range/Units 19:35 19:35 19:35 WBC 5.5 (3.8-10.6) k/uL RBC 4.31 (3.80-5.40) m/uL Hgb 14.0 (11.4-16.0) gm/dL Hct 42.3 (34.0-46.0) % MCV 98.1 (80.0-100.0) fL MCH 32.5 (25.0-35.0) pg MCHC 33.2 (31.0-37.0) g/dL RDW 15.3 (11.5-15.5) % Plt Count 275 (150-450) k/uL Neutrophils % 83 % Lymphocytes % 7 % Monocytes % 6 % Eosinophils % 2 % Basophils % 0 % Neutrophils # 4.6 (1.3-7.7) k/uL Lymphocytes # 0.4 L (1.0-4.8) k/uL Monocytes # 0.4 (0-1.0) k/uL Eosinophils # 0.1 (0-0.7) k/uL Basophils # 0.0 (0-0.2) k/uL Sodium 138 (137-145) mmol/L Potassium 3.8 (3.5-5.1) mmol/L Chloride 97 L (98-107) mmol/L Carbon Dioxide 31 H (22-30) mmol/L Anion Gap 10 mmol/L BUN 18 H (7-17) mg/dL Creatinine 0.50 L (0.52-1.04) mg/dL Est GFR (MDRD) Af Amer >60 (>60 ml/min/1.73 sqM) Est GFR (MDRD) Non-Af >60 (>60 ml/min/1.73 sqM) Glucose 99 (74-99) mg/dL Calcium 8.8 (8.4-10.2) mg/dL Total Bilirubin 0.5 (0.2-1.3) mg/dL AST 25 (14-36) U/L ALT 32 (9-52) U/L Alkaline Phosphatase 64 (38-126) U/L Troponin I <0.012 (0.000-0.034) ng/mL Total Protein 6.4 (6.3-8.2) g/dL Albumin 3.9 (3.5-5.0) g/dL Amylase 72 (30-110) U/L Lipase 125 (23-300) U/L Urine Color Urine Appearance (Clear) Urine pH (5.0-8.0) Ur Specific [place] (1.001-1.035) Urine Protein (Negative) Urine Glucose (UA) (Negative) Urine Ketones (Negative) Urine Blood (Negative) Urine Nitrite (Negative) Urine Bilirubin (Negative) Urine Urobilinogen (<2.0) mg/dL Ur Leukocyte Esterase (Negative) 12/16/16 Range/Units 21:00 WBC (3.8-10.6) k/uL RBC (3.80-5.40) m/uL Hgb (11.4-16.0) gm/dL Hct (34.0-46.0) % MCV (80.0-100.0) fL MCH (25.0-35.0) pg MCHC (31.0-37.0) g/dL RDW (11.5-15.5) % Plt Count (150-450) k/uL Neutrophils % % Lymphocytes % % Monocytes % % Eosinophils % % Basophils % % Neutrophils # (1.3-7.7) k/uL Lymphocytes # (1.0-4.8) k/uL Monocytes # (0-1.0) k/uL Eosinophils # (0-0.7) k/uL Basophils # (0-0.2) k/uL Sodium (137-145) mmol/L Potassium (3.5-5.1) mmol/L Chloride (98-107) mmol/L Carbon Dioxide (22-30) mmol/L Anion Gap mmol/L BUN (7-17) mg/dL Creatinine (0.52-1.04) mg/dL Est GFR (MDRD) Af Amer (>60 ml/min/1.73 sqM) Est GFR (MDRD) Non-Af (>60 ml/min/1.73 sqM) Glucose (74-99) mg/dL Calcium (8.4-10.2) mg/dL Total Bilirubin (0.2-1.3) mg/dL AST (14-36) U/L ALT (9-52) U/L Alkaline Phosphatase (38-126) U/L Troponin I (0.000-0.034) ng/mL Total Protein (6.3-8.2) g/dL Albumin (3.5-5.0) g/dL Amylase (30-110) U/L Lipase (23-300) U/L Urine Color Yellow Urine Appearance Clear (Clear) Urine pH 7.5 (5.0-8.0) Ur Specific [place] 1.013 (1.001-1.035) Urine Protein Negative (Negative) Urine Glucose (UA) Negative (Negative) Urine Ketones Negative (Negative) Urine Blood Negative (Negative) Urine Nitrite Negative (Negative) Urine Bilirubin Negative (Negative) Urine Urobilinogen <2.0 (<2.0) mg/dL Ur Leukocyte Esterase Negative (Negative) 12/16/16 21:20 EKG performed at 19:44 normal sinus rhythm with a rate of 97. [place] interval 1:30 QRS duration 70 QT/QTC 348/441 Disposition Clinical Impression: Gastroenteritis Disposition: HOME SELF-CARE Condition: Stable Instructions: Acute Nausea and Vomiting (ED) Additional Instructions: Please return to the Emergency Department if symptoms worsen or any other concerns. Prescriptions: Ondansetron Odt [Zofran Odt] 4 mg PO Q8HR PRN #10 tab PRN Reason: Nausea Referrals: Gumaro Cummings DO [Primary Care Provider] - 1-2 days Time of Disposition: 21:25
[2016-12-16 20:00] LABS: Basophils % (A) 0 %; CH 31.9; CHCM 32.7; Eosinophils # (A) 0.1 k/uL (0-0.7); Eosinophils % (A) 2 %; HCT 42.3 % (34.0-46.0); HDW 2.27; Luc # (Auto) 0.09; Luc % (Auto) 2; Lymphocytes # (A) 0.4 k/uL (1.0-4.8); Lymphocytes % (A) 7 %; MCH 32.5 pg (25.0-35.0); MCHC 33.2 g/dL (31.0-37.0); MCV 98.1 fL (80.0-100.0); Mean Platelet Volume 8.2; Monocytes # (A) 0.4 k/uL (0-1.0); Monocytes % (A) 6 %; Neutrophils # (A) 4.6 k/uL (1.3-7.7); Neutrophils % (A) 83 %; RBC 4.31 m/uL (3.80-5.40); RDW 15.3 % (11.5-15.5); WBC 5.5 k/uL (3.8-10.6); WBC (Perox) 5.19
[2016-12-16 20:01] LABS: ALT 32 U/L (9-52); AST 25 U/L (14-36); Alkaline Phosphatase 64 U/L (38-126); Amylase 72 U/L (30-110); Anion Gap 10 mmol/L; Blood Urea Nitrogen 18 mg/dL (7-17); Calcium 8.8 mg/dL (8.4-10.2); Carbon Dioxide 31 mmol/L (22-30); Chloride 97 mmol/L (98-107); Glucose 99 mg/dL (74-99); Non-African American GFR(MDRD) >60 (>60 ml/min/1.73 sqM); Potassium 3.8 mmol/L (3.5-5.1); Sodium 138 mmol/L (137-145); Total Bilirubin 0.5 mg/dL (0.2-1.3); Total Protein 6.4 g/dL (6.3-8.2)
--- NOTE | 2016-12-16 20:35 | XR ---
EXAMINATION TYPE: XR KUB DATE OF EXAM: 12/16/2016 COMPARISON: 12/13/2014 HISTORY: Abdominal pain TECHNIQUE: 3 views FINDINGS: There is no sign of intestinal obstruction or pneumoperitoneum. Fecal pattern is normal. Th ere are no pathologic calcifications over the kidneys. There is vascular calcification. Lung bases ar e clear. IMPRESSION: Nonacute abdomen. No adverse change compared to old exam.
--- NOTE | 2016-12-16 20:39 | XR ---
EXAMINATION TYPE: XR chest 2V DATE OF EXAM: 12/16/2016 COMPARISON: 10/17/2016 HISTORY: Vomiting TECHNIQUE: Frontal and lateral views of the chest are obtained. FINDINGS: There is mild coarsening of interstitial markings. There is no heart failure. Heart size i s normal. There is no pleural effusion. Thoracic aorta is atheromatous. Bones are osteopenic. IMPRESSION: Mild pulmonary fibrotic changes. No acute lung disease. No change.
[2016-12-16] MEDS ORDERED: ACETAMINOPHEN TAB 500 MG TAB PO STA (21:03)
[2016-12-16 21:07] LABS: Appearance,Urine Clear (Clear); Bilirubin,Urine Negative (Negative); Glucose,Urine (UA) Negative (Negative); Ketones,Urine Negative (Negative); Leukocyte Esterase,Urine Negative (Negative); Nitrite,Urine Negative (Negative); PH, Urine 7.5 (5.0-8.0); Protein,Urine Negative (Negative); Specific Gravity,Urine 1.013 (1.001-1.035); UA Billing (MACRO vs. MICRO) CHEM; Urobilinogen,Urine <2.0 mg/dL (<2.0)
[2016-12-16 22:13] VITALS: BP 168/78; PULSE 87; RESP 18; TEMP 99.5
== END 2016-12-16 22:51 | disposition home or self-care (01) ==
LOC: EC 18:40
DX: K52.9 Noninfective gastroenteritis and colitis, unspecified (principal); R11.2 Nausea with vomiting, unspecified; J44.9 Chronic obstructive pulmonary disease, unspecified; I10 Essential (primary) hypertension; R06.02 Shortness of breath; Z87.891 Personal history of nicotine dependence; Z79.51 Long term (current) use of inhaled steroids; Z79.52 Long term (current) use of systemic steroids; Z79.899 Other long term (current) drug therapy; Z88.1 Allergy status to other antibiotic agents; Z91.040 Latex allergy status
CPT/HCPCS: 36415; 93005; 80053; 82150; 83690; 84484; 85025; 81003; 71020; 74000; 99285; 96374; 96361 ×2; J2405

== ENCOUNTER 2017-01-13 08:06 | Inpatient (IN) | payer MEDICARE ==
[2017-01-13] MEDS ORDERED: methylPREDNISolone SOD SUCCI 125 MG/2 ML VIAL IV STA (08:13)
[2017-01-13] MEDS ORDERED: SODIUM CHLORIDE 0.9% 1,000 ML IV STA (08:13)
[2017-01-13] MEDS ORDERED: MAGNESIUM SULFATE-D5W PMX 1 GM in DEXTROSE/WATER 1 100ML.BAG IVPB STA (08:13)
[2017-01-13] MEDS ORDERED: IPRATROPIUM-ALBUTEROL 3 ML NEB INHALATION STA (08:13)
[2017-01-13] MEDS ORDERED: LORazepam 2 MG/ML SYRINGE IV STA (08:15)
--- NOTE | 2017-01-13 08:21 | ED ---
SOB HPI - General Stated Complaint: diff breathing Time Seen by Provider: 01/13/17 08:06 Source: patient, EMS, RN notes reviewed Mode of arrival: EMS Limitations: no limitations - History of Present Illness Initial Comments: This is a 71-year-old female with a known history of COPD who became very short of breath this morning and QT short of breath in spite of using her home inhalers and other medications. EMS was summoned patient refused nebulizer treatment she is not sure why she is not supposed get him she does state it makes her more short of breath. She did tell the paramedics that she would take the BiPAP or be intubated however. She was given BiPAP with minimal relief. She did demonstrate diffuse wheezing per paramedics. She has no chest pain no fevers chills sweats no productive cough. She is on 3 L of oxygen at home. MD Complaint: shortness of breath - Related Data Home Medications Medication Instructions Recorded Confirmed Albuterol Sulfate [Proair Hfa] 2 puff INHALATION RT-Q4H PRN 10/29/13 01/13/17 Budesonide/Formoterol Fumarate 2 puff INHALATION RT-BID 10/29/13 01/13/17 [Symbicort 160-4.5 Mcg Inhaler] Isosorbide Mononitrate ER [Imdur] 30 mg PO DAILY 10/29/13 01/13/17 Theophylline 24 Hour [Benigno-24] 300 mg PO DAILY 10/29/13 01/13/17 Cholecalciferol [Vitamin D3] 2,000 unit PO DAILY 12/07/14 01/13/17 Ipratropium/Albuterol Sulfate 1 puff INHALATION RT-QID PRN 09/23/15 01/13/17 [Combivent Respimat Inhaler] Lisinopril [Zestril] 20 mg PO DAILY 09/23/15 01/13/17 Tiotropium 18 Mcg/Puff [Spiriva] 1 cap INHALATION RT-DAILY 09/20/16 01/13/17 predniSONE 5 mg PO DAILY 10/17/16 01/13/17 Furosemide [Lasix] 20 mg PO Q48H 12/16/16 01/13/17 guaiFENesin [Mucinex] 600 mg PO DAILY PRN 01/13/17 01/13/17 Allergies Allergy/AdvReac Type Severity Reaction Status Date / Time Latex, Natural Rubber Allergy Rash/Hives Verified 01/13/17 08:44 levofloxacin [From Levaquin] AdvReac Nausea & Verified 01/13/17 08:44 Vomiting & Diarrhea Review of Systems ROS Statement: Those systems with pertinent positive or pertinent negative responses have been documented in the HPI. ROS Other: All systems not noted in ROS Statement are negative. Past Medical History Past Medical History: COPD, Hypertension, Pneumonia, Respiratory Disorder Additional Past Medical History / Comment(s): Pt recently admitted to [facility] with acute on chronic hypercapnic respiratory failure 2nday to COPD/ tracheobronchitis. Other HX: O2 dependent at 2L/NC ATC, steroid dependent, emphysema, purulent tracheobronchitis, bronchitis, UTI, hyponatremia, migraines but none for years, hepatitis A as a child with jaundice, hemorrhoids. History of Any Multi-Drug Resistant Organisms: None Reported Past Surgical History: Tubal Ligation Past Anesthesia/Blood Transfusion Reactions: No Reported Reaction Additional Past Anesthesia/Blood Transfusion Reaction / Comment(s): Pt has never recieved blood. Past Psychological History: No Psychological Hx Reported Smoking Status: Former smoker - Past Family History Father History Unknown: Yes Family Medical History: No Reported History Mother Family Medical History: Coronary Artery Disease (CAD), Myocardial Infarction ([place] ) Additional Family Medical History / Comment(s): Mother had CABG General Exam - General Exam Comments Initial Comments: This is a well-developed well-nourished awake alert very anxious appearing female she is audibly wheezing Limitations: no limitations General appearance: alert, anxious, in distress Head exam: Present: atraumatic, normocephalic, normal inspection Eye exam: Present: normal appearance, PERRL, EOMI. Absent: scleral icterus, conjunctival injection, periorbital swelling ENT exam: Present: normal exam, mucous membranes moist Neck exam: Present: normal inspection. Absent: tenderness, meningismus, lymphadenopathy Respiratory exam: Present: accessory muscle use, decreased breath sounds. Absent: respiratory distress, wheezes, rales, rhonchi, stridor Cardiovascular Exam: Present: normal rhythm, tachycardia. Absent: systolic murmur, diastolic murmur, rubs, gallop, clicks GI/Abdominal exam: Present: soft, normal bowel sounds. Absent: distended, tenderness, guarding, rebound, rigid Extremities exam: Present: normal inspection, full ROM, normal capillary refill. Absent: tenderness, pedal edema, joint swelling, calf tenderness Back exam: Present: normal inspection Neurological exam: Present: alert, oriented X3, CN II-XII intact Psychiatric exam: Present: anxious Skin exam: Present: warm, dry, intact, normal color. Absent: rash Course Vital Signs 01/13/17 01/13/17 01/13/17 08:08 08:19 08:27 Temperature 97.6 F Pulse Rate 128 H 124 H 124 H Respiratory 32 H Rate Blood Pressure 173/104 O2 Sat by Pulse 99 Oximetry 01/13/17 01/13/17 08:35 09:30 Temperature Pulse Rate 107 H Respiratory 26 H 23 Rate Blood Pressure 93/57 O2 Sat by Pulse 98 97 Oximetry - Reevaluation(s) Reevaluation #1: 01/13/17 08:20 The patient did finally consent to try a nebulizer treatment with the BiPAP. Reevaluation #2: 01/13/17 09:55 The patient is feeling improved she is on BiPAP. She has experienced no chest pain. Medical Decision Making - Medical Decision Making I did discuss findings with the patient family members or present patient will be admitted for evaluation of acute COPD exacerbation with elevation of the troponin and d-dimer. Dr. Pulido and will be consulted I did discuss case with Dr. Delgado. - Lab Data Result diagrams: 01/13/17 08:20 01/13/17 08:20 Lab Results 01/13/17 01/13/17 01/13/17 Range/Units 08:20 08:20 08:20 WBC 11.6 H (3.8-10.6) k/uL RBC 4.40 (3.80-5.40) m/uL Hgb 14.4 (11.4-16.0) gm/dL Hct 43.8 (34.0-46.0) % MCV 99.4 (80.0-100.0) fL MCH 32.6 (25.0-35.0) pg MCHC 32.8 (31.0-37.0) g/dL RDW 14.8 (11.5-15.5) % Plt Count 279 (150-450) k/uL Neutrophils % 76 % Lymphocytes % 10 % Monocytes % 8 % Eosinophils % 1 % Basophils % 1 % Neutrophils # 8.8 H (1.3-7.7) k/uL Lymphocytes # 1.2 (1.0-4.8) k/uL Monocytes # 0.9 (0-1.0) k/uL Eosinophils # 0.2 (0-0.7) k/uL Basophils # 0.1 (0-0.2) k/uL PT (9.0-12.0) sec INR (<1.2) APTT (22.0-30.0) sec D-Dimer (<0.60) mg/L FEU Sodium 139 (137-145) mmol/L Potassium 4.0 (3.5-5.1) mmol/L Chloride 97 L (98-107) mmol/L Carbon Dioxide 31 H (22-30) mmol/L Anion Gap 11 mmol/L BUN 15 (7-17) mg/dL Creatinine 0.55 (0.52-1.04) mg/dL Est GFR (MDRD) Af Amer >60 (>60 ml/min/1.73 sqM) Est GFR (MDRD) Non-Af >60 (>60 ml/min/1.73 sqM) Glucose 130 H (74-99) mg/dL Calcium 9.1 (8.4-10.2) mg/dL Magnesium 1.6 (1.6-2.3) mg/dL Total Bilirubin 0.3 (0.2-1.3) mg/dL AST 30 (14-36) U/L ALT 33 (9-52) U/L Alkaline Phosphatase 67 (38-126) U/L Total Creatine Kinase 97 (30-135) U/L CK-MB (CK-2) 3.8 H* (0.0-2.4) ng/mL CK-MB (CK-2) Rel Index 3.9 Troponin I 0.079 H* (0.000-0.034) ng/mL NT-Pro-B Natriuret Pep pg/mL Total Protein 7.3 (6.3-8.2) g/dL Albumin 4.3 (3.5-5.0) g/dL 01/13/17 01/13/17 Range/Units 08:20 08:20 WBC (3.8-10.6) k/uL RBC (3.80-5.40) m/uL Hgb (11.4-16.0) gm/dL Hct (34.0-46.0) % MCV (80.0-100.0) fL MCH (25.0-35.0) pg MCHC (31.0-37.0) g/dL RDW (11.5-15.5) % Plt Count (150-450) k/uL Neutrophils % % Lymphocytes % % Monocytes % % Eosinophils % % Basophils % % Neutrophils # (1.3-7.7) k/uL Lymphocytes # (1.0-4.8) k/uL Monocytes # (0-1.0) k/uL Eosinophils # (0-0.7) k/uL Basophils # (0-0.2) k/uL PT 9.8 (9.0-12.0) sec INR 1.0 (<1.2) APTT 23.9 (22.0-30.0) sec D-Dimer 0.73 H (<0.60) mg/L FEU Sodium (137-145) mmol/L Potassium (3.5-5.1) mmol/L Chloride (98-107) mmol/L Carbon Dioxide (22-30) mmol/L Anion Gap mmol/L BUN (7-17) mg/dL Creatinine (0.52-1.04) mg/dL Est GFR (MDRD) Af Amer (>60 ml/min/1.73 sqM) Est GFR (MDRD) Non-Af (>60 ml/min/1.73 sqM) Glucose (74-99) mg/dL Calcium (8.4-10.2) mg/dL Magnesium (1.6-2.3) mg/dL Total Bilirubin (0.2-1.3) mg/dL AST (14-36) U/L ALT (9-52) U/L Alkaline Phosphatase (38-126) U/L Total Creatine Kinase (30-135) U/L CK-MB (CK-2) (0.0-2.4) ng/mL CK-MB (CK-2) Rel Index Troponin I (0.000-0.034) ng/mL NT-Pro-B Natriuret Pep 223 pg/mL Total Protein (6.3-8.2) g/dL Albumin (3.5-5.0) g/dL - EKG Data -: EKG Interpreted by Me EKG shows normal: sinus rhythm (Sinus tachycardia rate 124. Interval 136 QRS duration 90 QT since QTC of 314/[address]-T wave changes.) - Radiology Data Radiology results: report reviewed (I did review the imaging and reports chronic bronchitis is noted question superimposed acute bronchitis), image reviewed Critical Care Time Critical Care Time: Yes Critical Care Time: 39 minutes of critical care time which includes the monitoring of the initial EMS run and discussed with paramedics history physical lab and x-rays on the patient reevaluation patient response to therapy and several occasions. Discussion with the patient family regarding findings discussed with the admitting physician and admission orders documentation the above. Disposition Clinical Impression: Acute exacerbation of chronic obstructive airways disease, Adult respiratory distress syndrome, Elevated troponin, Elevated d-dimer Disposition: ADMITTED IP TO THIS [facility] Condition: Stable Referrals: Gumaro Cummings DO [Primary Care Provider] - 1-2 days
[2017-01-13 08:35] LABS: Basophils # (A) 0.1 k/uL (0-0.2); Basophils % (A) 1 %; CH 31.9; CHCM 32.2; Eosinophils # (A) 0.2 k/uL (0-0.7); Eosinophils % (A) 1 %; HCT 43.8 % (34.0-46.0); HDW 2.32; HGB 14.4 gm/dL (11.4-16.0); Luc # (Auto) 0.43; Luc % (Auto) 4; Lymphocytes # (A) 1.2 k/uL (1.0-4.8); Lymphocytes % (A) 10 %; MCH 32.6 pg (25.0-35.0); MCHC 32.8 g/dL (31.0-37.0); MCV 99.4 fL (80.0-100.0); Mean Platelet Volume 8.4; Monocytes # (A) 0.9 k/uL (0-1.0); Monocytes % (A) 8 %; Neutrophils # (A) 8.8 k/uL (1.3-7.7); Neutrophils % (A) 76 %; RDW 14.8 % (11.5-15.5); WBC 11.6 k/uL (3.8-10.6); WBC (Perox) 11.49
[2017-01-13 08:45] LABS: ALT 33 U/L (9-52); AST 30 U/L (14-36); Alkaline Phosphatase 67 U/L (38-126); Anion Gap 11 mmol/L; Blood Urea Nitrogen 15 mg/dL (7-17); Calcium 9.1 mg/dL (8.4-10.2); Carbon Dioxide 31 mmol/L (22-30); Chloride 97 mmol/L (98-107); Glucose 130 mg/dL (74-99); Magnesium 1.6 mg/dL (1.6-2.3); Non-African American GFR(MDRD) >60 (>60 ml/min/1.73 sqM); Sodium 139 mmol/L (137-145); Total Bilirubin 0.3 mg/dL (0.2-1.3); Total Protein 7.3 g/dL (6.3-8.2)
[2017-01-13 08:50] LABS: Partial Thromboplastin Time 23.9 sec (22.0-30.0); Prothrombin Time 9.8 sec (9.0-12.0)
--- NOTE | 2017-01-13 09:02 | XR ---
EXAMINATION TYPE: XR chest 1V portable DATE OF EXAM: 01/13/2017 Comparison: 12/16/2016 Clinical History: 71 year-old female shortness of breath, difficulty breathing Findings: The heart is normal size. Atherosclerotic arch calcifications. Upper lung lucencies with hyperinflati on and diffuse interstitial prominence. Nodular density in the left lower lung not seen previously, s uspected nipple shadow. Peribronchial cuffing is present. No new consolidation or pleural effusion. Impression: Similar changes of COPD. Interstitial densities could represent a prominent component of chronic bron chitis or superimposed acute bronchitis.
[2017-01-13 09:28] LABS: Creatine Kinase MB 3.8 ng/mL (0.0-2.4); Troponin I 0.079 ng/mL (0.000-0.034)
[2017-01-13] MEDS ORDERED: HEPARIN SODIUM,PORCINE 5,000 UNIT/ML 1 ML VIAL IV ONE (09:59)
[2017-01-13] MEDS ORDERED: HEPARIN SODIUM,PORCINE/D5W PMX 25,000 UNIT in DEXTROSE/WATER 1 500ML.BAG IV SCH (10:00)
[2017-01-13] MEDS ORDERED: SODIUM CHLORIDE 0.9% 1,000 ML IV SCH (10:00)
[2017-01-13 10:37] LABS: Glucose,Whole Blood 127 mg/dL (75-99)
--- NOTE | 2017-01-13 10:56 | P.CNPUL ---
History of Present Illness Consult date: 01/13/17 Reason for consult: dyspnea, COPD History of present illness: 71-year-old female patient with advanced COPD and FEV1 of 33% of predicted, goal stage IV disease, maintained on a combination of Spiriva, Symbicort, and theophylline outpatient basis and addition to Combivent rescue inhaler on an as- needed basis. She comes in to the MRSA problem because of worsening shortness of breath. No chest pain. No angina. No pleurisy. No hemoptysis. Chest x- ray showing hyperinflation. No blood gases were done. Initially she was a selective overflow. After seeing her and I will regards to the ICU as the patient is in significant respiratory distress and she is quite anxious and she is using some excessive muscle breathing while being tachypneic. No fever. No chills. No chest pain. No swelling in lower extremities. No nausea. No vomiting. No change in mental status. ABGs are still pending. The patient was also placed on BiPAP. Review of Systems Constitutional: Reports fatigue, Reports lethargy, Reports weakness Eyes: denies blurred vision, denies bulging eye, denies decreased vision Ears: deny: decreased hearing, ear discharge, earache, tinnitus Ears, nose, mouth and throat: Denies headache, Denies sore throat Cardiovascular: Reports decreased exercise tolerance, Reports dyspnea on exertion, Reports shortness of breath Respiratory: Reports cough, Reports dyspnea, Reports wheezing Gastrointestinal: Denies abdominal pain, Denies diarrhea, Denies nausea, Denies vomiting Genitourinary: Denies dysuria, Denies hematuria Musculoskeletal: Denies myalgias Musculoskeletal: absent: ankle pain, ankle stiffness, ankle swelling Integumentary: Denies pruritus, Denies rash Neurological: Denies numbness, Denies weakness Psychiatric: Denies anxiety, Denies depression Past Medical History Past Medical History: COPD, Hypertension, Pneumonia, Respiratory Disorder Additional Past Medical History / Comment(s): COPD, advanced, oxygen and steroid dependent, chronic hypoxic and hypercapnic respiratory failure, acute on chronic hypercapnic respiratory failure, previous UTI, hyponatremia, migraines but none for years, hepatitis A as a child , hemorrhoids, osteoporosis , hypertension, hyperlipidemia History of Any Multi-Drug Resistant Organisms: None Reported Past Surgical History: Tubal Ligation Past Anesthesia/Blood Transfusion Reactions: No Reported Reaction Additional Past Anesthesia/Blood Transfusion Reaction / Comment(s): Pt has never recieved blood. Past Psychological History: No Psychological Hx Reported Smoking Status: Former smoker (Quit smoking in 2012) - Past Family History Father History Unknown: Yes Family Medical History: No Reported History Mother Family Medical History: Coronary Artery Disease (CAD), Myocardial Infarction ([place] ) Additional Family Medical History / Comment(s): Mother had CABG Medications and Allergies Home Medications Medication Instructions Recorded Confirmed Type Albuterol Sulfate [Proair Hfa] 2 puff INHALATION RT-Q4H PRN 10/29/13 01/13/17 History Budesonide/Formoterol Fumarate 2 puff INHALATION RT-BID 10/29/13 01/13/17 History [Symbicort 160-4.5 Mcg Inhaler] Isosorbide Mononitrate ER [Imdur] 30 mg PO DAILY 10/29/13 01/13/17 History Theophylline 24 Hour [Benigno-24] 300 mg PO DAILY 10/29/13 01/13/17 History Cholecalciferol [Vitamin D3] 2,000 unit PO DAILY 12/07/14 01/13/17 History Ipratropium/Albuterol Sulfate 1 puff INHALATION RT-QID PRN 09/23/15 01/13/17 History [Combivent Respimat Inhaler] Lisinopril [Zestril] 20 mg PO DAILY 09/23/15 01/13/17 History Tiotropium 18 Mcg/Puff [Spiriva] 1 cap INHALATION RT-DAILY 09/20/16 01/13/17 History predniSONE 5 mg PO DAILY 10/17/16 01/13/17 History Furosemide [Lasix] 20 mg PO Q48H 12/16/16 01/13/17 History guaiFENesin [Mucinex] 600 mg PO DAILY PRN 01/13/17 01/13/17 History Allergies Allergy/AdvReac Type Severity Reaction Status Date / Time Latex, Natural Rubber Allergy Rash/Hives Verified 01/13/17 08:44 levofloxacin [From Levaquin] AdvReac Nausea & Verified 01/13/17 08:44 Vomiting & Diarrhea Physical Exam Vitals: Vital Signs Temp Pulse Resp BP Pulse Ox 01/13/17 10:27 97.8 F 109 H 25 H 95/62 97 01/13/17 09:30 107 H 23 93/57 97 01/13/17 08:35 26 H 98 01/13/17 08:27 124 H 01/13/17 08:19 124 H 01/13/17 08:08 97.6 F 128 H 32 H 173/104 99 Intake and Output 01/12/17 01/13/17 01/13/17 22:59 06:59 14:59 Intake Total 150 Balance 150 Intake: Amount of Fluid Infused ( 150 ml) Other: Weight 45.359 kg Patient Weight 01/14/17 06:59 Weight 45.359 kg The patient is mild respiratory distress. She is using some abdominal muscles of breathing.Head exam was generally normal. There was no scleral icterus or corneal arcus. Mucous membranes were moist. Neck is supple and there is no JVDs no goiter no neck masses or lung sounds are markedly diminished and there is diffuse expiratory wheezes heard throughout the lung his bilaterally along with prolongation of expiratory phase of breathing.Cardiac exam revealed the PMI to be normally situated and sized. The rhythm was regular and no extrasystoles were noted during several minutes of auscultation. The first and second heart sounds were normal and physiologic splitting of the second heart sound was noted. There were no murmurs, rubs, clicks, or gallops.Abdominal exam revealed normal bowel sounds. The abdomen was soft, non-tender, and without masses, organomegaly, or appreciable enlargement of the abdominal aorta.Examination of the extremities revealed easily palpable radial, femoral and pedal pulses. There was no cyanosis, clubbing or edema. Results - Laboratory Findings CBC and BMP: 01/13/17 08:20 01/13/17 08:20 PT/INR, D-dimer PT 9.8 sec (9.0-12.0) 01/13/17 08:20 INR 1.0 (<1.2) 01/13/17 08:20 D-Dimer 0.73 mg/L FEU (<0.60) H 01/13/17 08:20 Abnormal lab findings: Abnormal Labs 01/13/17 01/13/17 01/13/17 08:20 08:20 08:20 WBC 11.6 H Neutrophils # 8.8 H D-Dimer Chloride 97 L Carbon Dioxide 31 H Glucose 130 H POC Glucose (mg/dL) CK-MB (CK-2) 3.8 H* Troponin I 0.079 H* 01/13/17 01/13/17 08:20 10:36 WBC Neutrophils # D-Dimer 0.73 H Chloride Carbon Dioxide Glucose POC Glucose (mg/dL) 127 H CK-MB (CK-2) Troponin I - Diagnostic Findings Chest x-ray: image reviewed Assessment and Plan Plan: Assessment 1 acute COPD exacerbation with secondary shortness of breath 2 advanced COPD, oxygen and steroid dependent with previous hospital physician for COPD exacerbation. The baseline FEV1 is at 33% of predicted. Maintained on a combination of Spiriva, Symbicort, theophylline and 5 mg of prednisone a daily basis. 3 chronic hypoxic and hypercapnic respiratory failure 4 hypertension 5 hyperlipidemia 6 osteoporosis 7 nonspecific troponin leak Plan Obtain a blood gas. Put the patient on BiPAP at a pressure of 12/5 cm of water and FiO2 of 50% to maintain a saturation above 90% and gradually wean down the FiO2. Put the patient on DuoNeb neb treatments 4 times a day [id number]. Start the patient on Perforomist and Pulmicort neb last 2 minutes twice a day. IV Solu Medrol 60 mg every 6 hours. Xanax 0.5 mg every 8 hours and appears her baseline anxiety. Heparin subcu for DVT prophylaxis. IV Rocephin. Oral Zithromax. IV fluids of 40 mL an hour of normal saline. IV Lasix 1 20 mg. We'll continue to follow. Cor status is full.
[2017-01-13] MEDS: IPRATROPIUM-ALBUTEROL 3 ML NEB INHALATION SCH ×4 (11:03→23:45)
[2017-01-13 11:06] LABS: ABG Base Excess 3.6 mmol/L; ABG HCO3 28 mmol/L (21-25); ABG Oxygen Saturation 96.3 % (94-97); ABG PCO2 47 mmHg (35-45); ABG PO2 85 mmHg (83-108); ABG TCO2 30 mmol/L (19-24)
[2017-01-13] MEDS ORDERED: NALOXONE 0.4 MG/ML 1 ML VIAL IV PRN (12:44)
[2017-01-13] MEDS ORDERED: ALPRAZolam 0.25 MG TAB PO PRN (12:44)
[2017-01-13] MEDS ORDERED: FUROSEMIDE 10 MG/ML 2 ML VIAL IV STA (12:54)
[2017-01-13] MEDS: FUROSEMIDE 20 MG TAB PO SCH (12:56)
[2017-01-13] MEDS: ALPRAZolam 0.25 MG TAB PO PRN ×2 (13:04→21:02)
[2017-01-13] MEDS: methylPREDNISolone SOD SUCCI 125 MG/2 ML VIAL IV SCH ×3 (13:05→23:06)
[2017-01-13] MEDS: AZITHROMYCIN 500 MG TAB PO SCH (13:08)
[2017-01-13] MEDS ORDERED: Magnesium Replacement Protocol 1 EACH MISC MISCELLANE PRN (14:30)
--- NOTE | 2017-01-13 14:42 | P.HPIM ---
History of Present Illness Patient is a pleasant 71-year-old female with GOLD stage IV COPD came in with complaints of shortness of breath started 2 days ago much worse today morning and patient was requiring BiPAP patient uses 2 L of of oxygen at home. Patient quit smoking years ago. Patient denied any patient was having cough unable to bring up anything patient chest x-ray did not show any pneumonic process. Patient denied any fevers, chills, nausea, vomiting, chest pain. Review of Systems REVIEW OF SYSTEMS: CONSTITUTIONAL: No fever, no malaise, no fatigue. HEENT: No recent visual problems or hearing problems. Denied any sore throat. CARDIOVASCULAR: No chest pain, orthopnea, PND, no palpitations, no syncope. PULMONARY: , no hemoptysis. GASTROINTESTINAL: No diarrhea, no nausea, no vomiting, no abdominal pain. Normoactive bowel sounds. NEUROLOGICAL: No headaches, no weakness, no numbness. HEMATOLOGICAL: Denies any bleeding or petechiae. GENITOURINARY: Denies any burning micturition, frequency, or urgency. MUSCULOSKELETAL/RHEUMATOLOGICAL: Denies any joint pain, swelling, or any muscle pain. ENDOCRINE: Denies any polyuria or polydipsia. The rest of the 14-point review of systems is negative. Past Medical History Past Medical History: COPD, Hypertension, Pneumonia, Respiratory Disorder Additional Past Medical History / Comment(s): COPD, advanced, oxygen and steroid dependent, chronic hypoxic and hypercapnic respiratory failure, acute on chronic hypercapnic respiratory failure, previous UTI, hyponatremia, migraines but none for years, hepatitis A as a child , hemorrhoids, osteoporosis , hypertension, hyperlipidemia History of Any Multi-Drug Resistant Organisms: None Reported Past Surgical History: Tubal Ligation Past Anesthesia/Blood Transfusion Reactions: No Reported Reaction Additional Past Anesthesia/Blood Transfusion Reaction / Comment(s): Pt has never recieved blood. Past Psychological History: No Psychological Hx Reported Smoking Status: Former smoker (Quit smoking in 2012) - Past Family History Father History Unknown: Yes Family Medical History: No Reported History Mother Family Medical History: Coronary Artery Disease (CAD), Myocardial Infarction ([place] ) Additional Family Medical History / Comment(s): Mother had CABG Medications and Allergies Home Medications Medication Instructions Recorded Confirmed Type Albuterol Sulfate [Proair Hfa] 2 puff INHALATION RT-Q4H PRN 10/29/13 01/13/17 History Budesonide/Formoterol Fumarate 2 puff INHALATION RT-BID 10/29/13 01/13/17 History [Symbicort 160-4.5 Mcg Inhaler] Isosorbide Mononitrate ER [Imdur] 30 mg PO DAILY 10/29/13 01/13/17 History Theophylline 24 Hour [Benigno-24] 300 mg PO DAILY 10/29/13 01/13/17 History Cholecalciferol [Vitamin D3] 2,000 unit PO DAILY 12/07/14 01/13/17 History Ipratropium/Albuterol Sulfate 1 puff INHALATION RT-QID PRN 09/23/15 01/13/17 History [Combivent Respimat Inhaler] Lisinopril [Zestril] 20 mg PO DAILY 09/23/15 01/13/17 History Tiotropium 18 Mcg/Puff [Spiriva] 1 cap INHALATION RT-DAILY 09/20/16 01/13/17 History predniSONE 5 mg PO DAILY 10/17/16 01/13/17 History Furosemide [Lasix] 20 mg PO Q48H 12/16/16 01/13/17 History guaiFENesin [Mucinex] 600 mg PO DAILY PRN 01/13/17 01/13/17 History Allergies Allergy/AdvReac Type Severity Reaction Status Date / Time Latex, Natural Rubber Allergy Rash/Hives Verified 01/13/17 08:44 levofloxacin [From Levaquin] AdvReac Nausea & Verified 01/13/17 08:44 Vomiting & Diarrhea Physical Exam Vitals: Vital Signs Temp Pulse Resp BP Pulse Ox 01/13/17 14:00 111 H 23 98/59 99 01/13/17 13:00 113 H 26 H 118/64 93 L 01/13/17 12:00 105 H 23 111/59 99 01/13/17 11:20 107 H 01/13/17 11:04 103 H 01/13/17 11:00 97.5 F L 104 H 25 H 131/66 99 01/13/17 10:27 97.8 F 109 H 25 H 95/62 97 01/13/17 09:30 107 H 23 93/57 97 01/13/17 08:35 26 H 98 01/13/17 08:27 124 H 01/13/17 08:19 124 H 01/13/17 08:08 97.6 F 128 H 32 H 173/104 99 Intake and Output 01/12/17 01/13/17 01/13/17 22:59 06:59 14:59 Intake Total 360 Output Total 375 Balance -15 Intake: IV 210 Sodium Chloride 0.9% 1, 160 000 ml @ 40 mls/hr IV . Q24H [facility] Rx#:[id number] cefTRIAXone 1,000 mg In 50 Sodium Chloride 0.9% 50 ml @ 100 mls/hr IVPB Q24HR [facility] Rx#:[id number] Amount of Fluid Infused ( 150 ml) Output: Urine 375 Other: Voiding Method Bedpan Weight 56.3 kg Patient Weight 01/14/17 06:59 Weight 56.3 kg PHYSICAL EXAMINATION: GENERAL: The patient is alert and oriented x3, not in any acute distress. Well developed, well nourished. HEENT: Pupils are round and equally reacting to light. EOMI. No scleral icterus. No conjunctival pallor. Normocephalic, atraumatic. No pharyngeal erythema. No thyromegaly. CARDIOVASCULAR: S1 and S2 present. No murmurs, rubs, or gallops. PULMONARY: Significantly limited air entry into bilateral lung kent, very minimal wheezing was appreciated. Patient is presently on BiPAP , noninvasive bilevel ventilation ABDOMEN: Soft, nontender, nondistended, normoactive bowel sounds. No palpable organomegaly. MUSCULOSKELETAL: No joint swelling or deformity. EXTREMITIES: No cyanosis, clubbing, or pedal edema. NEUROLOGICAL: Gross neurological examination did not reveal any focal deficits. SKIN: No rashes. Results CBC & Chem 7: 01/13/17 08:20 01/13/17 08:20 Labs: Abnormal Lab Results - Last 24 Hours (Table) 01/13/17 01/13/17 01/13/17 Range/Units 08:20 08:20 08:20 WBC 11.6 H (3.8-10.6) k/uL Neutrophils # 8.8 H (1.3-7.7) k/uL D-Dimer (<0.60) mg/L FEU ABG pCO2 (35-45) mmHg ABG HCO3 (21-25) mmol/L ABG Total CO2 (19-24) mmol/L Chloride 97 L (98-107) mmol/L Carbon Dioxide 31 H (22-30) mmol/L Glucose 130 H (74-99) mg/dL POC Glucose (mg/dL) (75-99) mg/dL CK-MB (CK-2) 3.8 H* (0.0-2.4) ng/mL Troponin I 0.079 H* (0.000-0.034) ng/mL 01/13/17 01/13/17 01/13/17 Range/Units 08:20 10:36 10:48 WBC (3.8-10.6) k/uL Neutrophils # (1.3-7.7) k/uL D-Dimer 0.73 H (<0.60) mg/L FEU ABG pCO2 47 H (35-45) mmHg ABG HCO3 28 H (21-25) mmol/L ABG Total CO2 30 H (19-24) mmol/L Chloride (98-107) mmol/L Carbon Dioxide (22-30) mmol/L Glucose (74-99) mg/dL POC Glucose (mg/dL) 127 H (75-99) mg/dL CK-MB (CK-2) (0.0-2.4) ng/mL Troponin I (0.000-0.034) ng/mL Thrombosis Risk Factor Assmnt - Choose All That Apply Each Factor Represents 1 point: Abnormal pulmonary function (COPD) Each Risk Factor Represents 2 Points: Age 61-74 years Thrombosis Risk Factor Assessment Total Risk Factor Score: 3 Thrombosis Risk Factor Assessment Level: Moderate Risk Assessment and Plan Plan: Acute on chronic hypercapnic respiratory failure secondary to COPD exacerbation : Continue with BiPAP and the wean off as tolerated can use a stroke stars and inhalational treatments. Patient doesn't have any pneumonia. Patient is on Rocephin and azithromycin. Patient's Rocephin probably can be discussed any of tomorrow. #2 hypertension: Patient is hypotensive lisinopril will be discontinued patient doesn't have a reason for him due to never had any coronary artery disease. But definitely high risk for coronary artery disease. #3 hyperlipidemia #4 osteoporosis #5 mildly elevated troponin secondary to hypoxemia patient doesn't have any chest pain EKG is not consistent with acute ST-T wave changes. We'll repeat 2 more sets of troponin.
[2017-01-13] MEDS: MAGNESIUM SULFATE-D5W PMX 1 GM in DEXTROSE/WATER 1 100ML.BAG IVPB SCH ×2 (16:05→17:43)
[2017-01-13 17:44] LABS: Glucose,Whole Blood 137 mg/dL (75-99)
[2017-01-13] MEDS: FORMOTEROL FUMARATE 20 MCG/2 ML NEBU INHALATION SCH (19:40)
[2017-01-13] MEDS: BUDESONIDE 0.5 MG/2 ML NEBU INHALATION SCH (19:40)
[2017-01-13] MEDS: HEPARIN SODIUM,PORCINE 5,000 UNIT/ML 1 ML VIAL SQ SCH (20:06)
[2017-01-13] MEDS: INSULIN LISPRO (humaLOG) 300 UNIT/3 ML VIAL SQ SCH (20:08)
[2017-01-13 20:09] LABS: Glucose,Whole Blood 234 mg/dL (75-99)
[2017-01-14] MEDS: IPRATROPIUM-ALBUTEROL 3 ML NEB INHALATION SCH ×6 (03:11→23:17)
[2017-01-14 04:50] LABS: Basophils % (A) 0 %; CH 32.5; CHCM 31.8; Eosinophils % (A) 0 %; HCT 43.1 % (34.0-46.0); HDW 2.23; HGB 13.3 gm/dL (11.4-16.0); Luc # (Auto) 0.07; Luc % (Auto) 1; Lymphocytes # (A) 0.6 k/uL (1.0-4.8); Lymphocytes % (A) 9 %; MCH 31.7 pg (25.0-35.0); MCHC 30.8 g/dL (31.0-37.0); MCV 102.8 fL (80.0-100.0); Macrocytosis Slight; Monocytes # (A) 0.2 k/uL (0-1.0); Monocytes % (A) 3 %; Neutrophils # (A) 5.8 k/uL (1.3-7.7); Neutrophils % (A) 87 %; RBC 4.19 m/uL (3.80-5.40); RDW 15.3 % (11.5-15.5); WBC 6.6 k/uL (3.8-10.6); WBC (Perox) 7.23
[2017-01-14 05:07] LABS: Anion Gap 10 mmol/L; Blood Urea Nitrogen 21 mg/dL (7-17); Calcium 9.1 mg/dL (8.4-10.2); Carbon Dioxide 32 mmol/L (22-30); Chloride 97 mmol/L (98-107); Glucose 149 mg/dL (74-99); Magnesium 2.5 mg/dL (1.6-2.3); Non-African American GFR(MDRD) >60 (>60 ml/min/1.73 sqM); Potassium 4.5 mmol/L (3.5-5.1); Sodium 139 mmol/L (137-145)
[2017-01-14] MEDS: methylPREDNISolone SOD SUCCI 125 MG/2 ML VIAL IV SCH ×3 (06:38→18:12)
[2017-01-14 07:25] LABS: Glucose,Whole Blood 119 mg/dL (75-99)
[2017-01-14] MEDS: INSULIN LISPRO (humaLOG) 300 UNIT/3 ML VIAL SQ SCH ×4 (07:52→21:05)
[2017-01-14] MEDS: AZITHROMYCIN 500 MG TAB PO SCH (07:52)
[2017-01-14] MEDS: CHOLECALCIFEROL 1,000 UNIT TAB PO SCH (07:53)
[2017-01-14] MEDS: PANTOPRAZOLE 40 MG TABLET PO SCH (07:53)
[2017-01-14] MEDS: THEOPHYLLINE 24 HOUR 300 MG CAP.ER.24H PO SCH (07:53)
[2017-01-14] MEDS: HEPARIN SODIUM,PORCINE 5,000 UNIT/ML 1 ML VIAL SQ SCH ×2 (07:53→21:05)
[2017-01-14] MEDS ORDERED: TIOTROPIUM 18 MCG/PUFF INHALER INHALATION SCH (08:00)
--- NOTE | 2017-01-14 08:21 | XR ---
EXAMINATION TYPE: XR chest 1V DATE OF EXAM: 01/14/2017 HISTORY: Shortness of breath. COMPARISON: January 13, 2017 TECHNIQUE: Single view of the chest is submitted. FINDINGS: Demonstrated are scattered senescent parenchymal change. Hyperinflation is compatible with COPD. There is no evidence for focal infiltrate. The heart is stable. Hilar and mediastinal structures are within normal limits. Degenerative changes are seen of the dorsal spine. IMPRESSION: 1. Chronic changes without evidence for acute pulmonary disease.
[2017-01-14] MEDS: BUDESONIDE 0.5 MG/2 ML NEBU INHALATION SCH (08:44)
[2017-01-14] MEDS: FORMOTEROL FUMARATE 20 MCG/2 ML NEBU INHALATION SCH (08:44)
[2017-01-14] MEDS ORDERED: ISOSORBIDE MONONITRATE ER 30 MG TAB.ER.24H PO SCH (09:00)
[2017-01-14] MEDS ORDERED: LISINOPRIL 20 MG TAB PO SCH (09:00)
--- NOTE | 2017-01-14 10:54 | P.PN ---
Subjective Principal diagnosis: Acute on chronic hypoxic and hypercapnic respiratory failure secondary to COPd exacerbation. 71-year-old female patient with advanced COPD and FEV1 of 33% of predicted, goal stage IV disease, maintained on a combination of Spiriva, Symbicort, and theophylline outpatient basis and addition to Combivent rescue inhaler on an as- needed basis. She comes in to the MRSA problem because of worsening shortness of breath. No chest pain. No angina. No pleurisy. No hemoptysis. Chest x- ray showing hyperinflation. No blood gases were done. Initially she was a selective overflow. After seeing her and I will regards to the ICU as the patient is in significant respiratory distress and she is quite anxious and she is using some excessive muscle breathing while being tachypneic. No fever. No chills. No chest pain. No swelling in lower extremities. No nausea. No vomiting. No change in mental status. ABGs are still pending. The patient was also placed on BiPAP. Patient was seen today on 01/14/2017, remains in the intensive care unit, presently on nasal cannula at 3 L/m, saturating quite well, does not seem to be in severe respiratory distress anymore. Patient is able to communicate, apparently she has some issues with that Perforomist, and I went ahead and discontinued Perforomist and Pulmicort and switched her to Symbicort. In the meantime she will remain on DuoNeb, she will remain on multiple bronchodilators as listed by Dr. Ventura, and she will remain on GI and DVT prophylaxis. Labs were reviewed she had basically normal metabolic profile. Normal CBC. Normal renal profile. Chest x-ray showed no evidence of acute process, she has chronic changes mostly. She has hyperinflation compatible with COPD and scattered senescent parenchymal changes. Over the last 24 hours, patient has been intermittently on BiPAP and it is mostly used as needed. Objective - Vital Signs Vital signs: Vital Signs Temp 97.6 F 01/14/17 08:00 Pulse 83 01/14/17 10:00 Resp 19 01/14/17 10:00 BP 123/64 01/14/17 10:00 Pulse Ox 95 01/14/17 10:00 Intake & Output 01/13/17 01/14/17 01/14/17 18:59 06:59 18:59 Intake Total 620 640 170 Output Total 1575 540 250 Balance -955 100 -80 Weight 56.3 kg 56 kg Intake: IV 470 520 170 Magnesium Sulfate-D5w Pmx 100 1 gm In Dextrose/Water 1 100ml.bag @ 100 mls/hr IVPB ONCE [facility] Rx#: [id number] Sodium Chloride 0.9% 1, 320 520 120 000 ml @ 40 mls/hr IV . Q24H [facility] Rx#:[id number] cefTRIAXone 1,000 mg In 50 50 Sodium Chloride 0.9% 50 ml @ 100 mls/hr IVPB Q24HR [facility] Rx#:[id number] Amount of Fluid Infused ( 150 ml) Oral 120 Output: Urine 1575 540 250 Other: Voiding Method Bedpan Bedpan Bedside Commode - Exam Physical Exam: Revealed a 71-year-old in mild respiratory distress, presently on nasal cannula. HEENT:[Neck is supple.] [No neck masses.] [No thyromegaly.] [No JVD.] Chest: [Diminished breath sounds at the bases, no crackles, no rhonchi, no wheezes..] Cardiac Exam: [Normal S1 and S2, no S3 gallop, no murmur.] Abdomen: [Soft, nontender, no megaly, no rebound, no guarding, normal bowel sounds.] Extremities: [No clubbing, no edema, no cyanosis.] Neurological Exam: [No focal neurologic deficit.] - Labs CBC & Chem 7: 01/14/17 04:16 01/14/17 04:16 Labs: Abnormal Lab Results - Last 24 Hours (Table) 01/13/17 01/13/17 01/13/17 Range/Units 10:48 14:01 17:43 MCV (80.0-100.0) fL MCHC (31.0-37.0) g/dL Lymphocytes # (1.0-4.8) k/uL ABG pCO2 47 H (35-45) mmHg ABG HCO3 28 H (21-25) mmol/L ABG Total CO2 30 H (19-24) mmol/L Chloride (98-107) mmol/L Carbon Dioxide (22-30) mmol/L BUN (7-17) mg/dL Glucose (74-99) mg/dL POC Glucose (mg/dL) 137 H (75-99) mg/dL Magnesium (1.6-2.3) mg/dL Troponin I 0.316 H* (0.000-0.034) ng/mL 01/13/17 01/13/17 01/14/17 Range/Units 20:00 20:07 04:16 MCV 102.8 H (80.0-100.0) fL MCHC 30.8 L (31.0-37.0) g/dL Lymphocytes # 0.6 L (1.0-4.8) k/uL ABG pCO2 (35-45) mmHg ABG HCO3 (21-25) mmol/L ABG Total CO2 (19-24) mmol/L Chloride (98-107) mmol/L Carbon Dioxide (22-30) mmol/L BUN (7-17) mg/dL Glucose (74-99) mg/dL POC Glucose (mg/dL) 234 H (75-99) mg/dL Magnesium (1.6-2.3) mg/dL Troponin I 0.469 H* (0.000-0.034) ng/mL 01/14/17 01/14/17 Range/Units 04:16 07:24 MCV (80.0-100.0) fL MCHC (31.0-37.0) g/dL Lymphocytes # (1.0-4.8) k/uL ABG pCO2 (35-45) mmHg ABG HCO3 (21-25) mmol/L ABG Total CO2 (19-24) mmol/L Chloride 97 L (98-107) mmol/L Carbon Dioxide 32 H (22-30) mmol/L BUN 21 H (7-17) mg/dL Glucose 149 H (74-99) mg/dL POC Glucose (mg/dL) 119 H (75-99) mg/dL Magnesium 2.5 H (1.6-2.3) mg/dL Troponin I (0.000-0.034) ng/mL Assessment and Plan Plan: 1 acute on chronic hypoxic and hypercapnic respiratory failure secondary to COPD exacerbation. 2 advanced COPD, oxygen and steroid dependent with previous hospital physician for COPD exacerbation. The baseline FEV1 is at 33% of predicted. Maintained on a combination of Spiriva, Symbicort, theophylline and 5 mg of prednisone a daily basis. 3 chronic hypoxic and hypercapnic respiratory failure 4 hypertension 5 hyperlipidemia 6 osteoporosis 7 nonspecific troponin leak Recommendation: Continue present treatment plan, continue bronchodilators, Symbicort was added and it will replace Perforomist and Pulmicort. Patient should remain on DVT prophylaxis. Should remain on antibiotics, steroids, bronchodilators, I will arrange for the patient to be transferred out of the ICU today, she will be on a regular medical floor, and we will continue to follow. Xanax will be continued every 8 hours as needed for anxiety. Long- term prognosis remains poor and guarded considering her underlying severe end- stage COPD. Time with Patient: Less than 30
[2017-01-14 11:56] LABS: Hemoglobin A1C 5.7 % (4.2-6.1)
[2017-01-14] MEDS: SODIUM CHLORIDE 0.9% 1,000 ML IV SCH (12:28)
[2017-01-14 12:29] LABS: Glucose,Whole Blood 128 mg/dL (75-99)
[2017-01-14 16:52] LABS: Glucose,Whole Blood 145 mg/dL (75-99)
[2017-01-14] MEDS: guaiFENesin 600 MG TABLET.ER PO PRN (18:57)
[2017-01-14] MEDS: SYMBICORT 160-4.5 MCG INHALER INHALATION SCH (19:52)
[2017-01-14 21:06] LABS: Glucose,Whole Blood 123 mg/dL (75-99)
--- NOTE | 2017-01-14 22:56 | P.PN ---
Subjective Principal diagnosis: Acute COPD exacerbation Patient is a pleasant 71-year-old female with GOLD stage IV COPD came in with complaints of shortness of breath started 2 days ago much worse today morning and patient was requiring BiPAP patient uses 2 L of of oxygen at home. Patient quit smoking years ago. Patient denied any patient was having cough unable to bring up anything patient chest x-ray did not show any pneumonic process. Patient denied any fevers, chills, nausea, vomiting, chest pain. On 01/14/2017 Patient is currently on BiPAP machine. Breathing status is much improved now. No fever no chills. No acute overnight issues. Objective - Vital Signs Vital signs: Vital Signs Temp 97.9 F 01/14/17 15:00 Pulse 88 01/14/17 20:08 Resp 19 01/14/17 15:53 BP 147/73 01/14/17 15:00 Pulse Ox 95 01/14/17 15:00 Intake & Output 01/14/17 01/14/17 01/15/17 06:59 18:59 06:59 Intake Total 640 330 Output Total 540 800 Balance 100 -470 Weight 56 kg Intake: IV 520 330 Sodium Chloride 0.9% 1, 520 280 000 ml @ 40 mls/hr IV . Q24H [facility] Rx#:[id number] cefTRIAXone 1,000 mg In 50 Sodium Chloride 0.9% 50 ml @ 100 mls/hr IVPB Q24HR [facility] Rx#:[id number] Oral 120 Output: Urine 540 800 Other: Voiding Method Bedpan Bedside Commode - Exam GENERAL: The patient is alert and oriented x3, not in any acute distress. Well developed, well nourished. HEENT: Pupils are round and equally reacting to light. EOMI. No scleral icterus. No conjunctival pallor. Normocephalic, atraumatic. No pharyngeal erythema. No thyromegaly. CARDIOVASCULAR: S1 and S2 present. No murmurs, rubs, or gallops. PULMONARY: Significantly limited air entry into bilateral lung kent, very minimal wheezing was appreciated. Patient is presently on BiPAP , noninvasive bilevel ventilation ABDOMEN: Soft, nontender, nondistended, normoactive bowel sounds. No palpable organomegaly. MUSCULOSKELETAL: No joint swelling or deformity. EXTREMITIES: No cyanosis, clubbing, or pedal edema. NEUROLOGICAL: Gross neurological examination did not reveal any focal deficits. SKIN: No rashes. - Labs CBC & Chem 7: 01/14/17 04:16 01/14/17 04:16 Labs: Abnormal Lab Results - Last 24 Hours (Table) 01/14/17 01/14/17 01/14/17 Range/Units 04:16 04:16 07:24 MCV 102.8 H (80.0-100.0) fL MCHC 30.8 L (31.0-37.0) g/dL Lymphocytes # 0.6 L (1.0-4.8) k/uL Chloride 97 L (98-107) mmol/L Carbon Dioxide 32 H (22-30) mmol/L BUN 21 H (7-17) mg/dL Glucose 149 H (74-99) mg/dL POC Glucose (mg/dL) 119 H (75-99) mg/dL Magnesium 2.5 H (1.6-2.3) mg/dL 01/14/17 01/14/17 01/14/17 Range/Units 12:27 16:51 21:04 MCV (80.0-100.0) fL MCHC (31.0-37.0) g/dL Lymphocytes # (1.0-4.8) k/uL Chloride (98-107) mmol/L Carbon Dioxide (22-30) mmol/L BUN (7-17) mg/dL Glucose (74-99) mg/dL POC Glucose (mg/dL) 128 H 145 H 123 H (75-99) mg/dL Magnesium (1.6-2.3) mg/dL Assessment and Plan Plan: #1 Acute on chronic hypoxic and hypercapnic respiratory failure secondary to COPD exacerbation: Continue with BiPAP when necessary. Patient is on azithromycin. No evidence of pneumonia on chest x-ray. #2 hypertension controlled. #3 hyperlipidemia #4 osteoporosis #5 mildly elevated troponin secondary to hypoxemia and demand mismatch. patient doesn't have any chest pain EKG is not consistent with acute ST-T wave changes. #6) advanced COPD on home oxygen and steroid dependent. Plan: Patient will be continued on DuoNeb's and Symbicort as well as IV steroids. We will continue the BiPAP machine when necessary. Continue the current management. Continue DVT prophylaxis. Pulmonary is following this patient. Further recommendations based on the clinical course. Time with Patient: Greater than 30
[2017-01-15] MEDS: methylPREDNISolone SOD SUCCI 125 MG/2 ML VIAL IV SCH ×5 (00:12→23:49)
[2017-01-15] MEDS: IPRATROPIUM-ALBUTEROL 3 ML NEB INHALATION SCH ×6 (03:28→23:48)
[2017-01-15 04:58] LABS: Basophils % (A) 0 %; CH 32.3; CHCM 31.6; Eosinophils % (A) 0 %; HCT 39.3 % (34.0-46.0); HDW 2.18; HGB 12.8 gm/dL (11.4-16.0); Luc # (Auto) 0.06; Luc % (Auto) 1; Lymphocytes # (A) 0.7 k/uL (1.0-4.8); Lymphocytes % (A) 6 %; MCH 33.3 pg (25.0-35.0); MCHC 32.5 g/dL (31.0-37.0); MCV 102.5 fL (80.0-100.0); Macrocytosis Slight; Mean Platelet Volume 9.2; Monocytes # (A) 0.4 k/uL (0-1.0); Monocytes % (A) 4 %; Neutrophils # (A) 9.4 k/uL (1.3-7.7); Neutrophils % (A) 89 %; RBC 3.83 m/uL (3.80-5.40); RDW 15.4 % (11.5-15.5); WBC 10.5 k/uL (3.8-10.6); WBC (Perox) 11.03
[2017-01-15 05:15] LABS: Anion Gap 8 mmol/L; Blood Urea Nitrogen 22 mg/dL (7-17); Carbon Dioxide 29 mmol/L (22-30); Chloride 103 mmol/L (98-107); Glucose 135 mg/dL (74-99); Magnesium 2.2 mg/dL (1.6-2.3); Non-African American GFR(MDRD) >60 (>60 ml/min/1.73 sqM); Phosphorous 3.2 mg/dL (2.5-4.5); Potassium 4.4 mmol/L (3.5-5.1); Sodium 140 mmol/L (137-145)
[2017-01-15 07:19] LABS: Glucose,Whole Blood 114 mg/dL (75-99)
--- NOTE | 2017-01-15 07:35 | XR ---
EXAMINATION TYPE: XR chest 1V DATE OF EXAM: 01/15/2017 HISTORY: Shortness of breath. COMPARISON: January 14, 2017 TECHNIQUE: Single view of the chest is submitted. FINDINGS: Demonstrated are scattered senescent parenchymal change. Hyperinflation compatible with COPD. There is no evidence for focal infiltrate. The heart is stable. Hilar and mediastinal structures are within normal limits. Degenerative changes are seen of the dorsal spine. IMPRESSION: 1. Chronic changes without evidence for acute pulmonary disease.
[2017-01-15] MEDS: INSULIN LISPRO (humaLOG) 300 UNIT/3 ML VIAL SQ SCH ×4 (08:05→21:46)
[2017-01-15] MEDS: AZITHROMYCIN 500 MG TAB PO SCH (09:08)
[2017-01-15] MEDS: PANTOPRAZOLE 40 MG TABLET PO SCH (09:08)
[2017-01-15] MEDS: CHOLECALCIFEROL 1,000 UNIT TAB PO SCH (09:08)
[2017-01-15] MEDS: HEPARIN SODIUM,PORCINE 5,000 UNIT/ML 1 ML VIAL SQ SCH ×2 (09:08→22:12)
[2017-01-15] MEDS: FUROSEMIDE 20 MG TAB PO SCH (09:09)
[2017-01-15] MEDS: THEOPHYLLINE 24 HOUR 300 MG CAP.ER.24H PO SCH (09:09)
--- NOTE | 2017-01-15 10:17 | P.PN ---
Subjective Principal diagnosis: Acute on chronic hypoxic and hypercapnic respiratory failure secondary to COPd exacerbation. 71-year-old female patient with advanced COPD and FEV1 of 33% of predicted, goal stage IV disease, maintained on a combination of Spiriva, Symbicort, and theophylline outpatient basis and addition to Combivent rescue inhaler on an as- needed basis. She comes in to the MRSA problem because of worsening shortness of breath. No chest pain. No angina. No pleurisy. No hemoptysis. Chest x- ray showing hyperinflation. No blood gases were done. Initially she was a selective overflow. After seeing her and I will regards to the ICU as the patient is in significant respiratory distress and she is quite anxious and she is using some excessive muscle breathing while being tachypneic. No fever. No chills. No chest pain. No swelling in lower extremities. No nausea. No vomiting. No change in mental status. ABGs are still pending. The patient was also placed on BiPAP. Patient was seen today on 01/14/2017, remains in the intensive care unit, presently on nasal cannula at 3 L/m, saturating quite well, does not seem to be in severe respiratory distress anymore. Patient is able to communicate, apparently she has some issues with that Perforomist, and I went ahead and discontinued Perforomist and Pulmicort and switched her to Symbicort. In the meantime she will remain on DuoNeb, she will remain on multiple bronchodilators as listed by Dr. Ventura, and she will remain on GI and DVT prophylaxis. Labs were reviewed she had basically normal metabolic profile. Normal CBC. Normal renal profile. Chest x-ray showed no evidence of acute process, she has chronic changes mostly. She has hyperinflation compatible with COPD and scattered senescent parenchymal changes. Over the last 24 hours, patient has been intermittently on BiPAP and it is mostly used as needed. Reevaluated today on 01/15/2017, patient remains in the intensive care unit, intermittently on nasal cannula and BiPAP alternating. Earlier this morning she was noted to be tachypneic, and bit tachycardic, hence I recommended starting the patient again on BiPAP. Patient is optimized on multiple bronchodilators, she is also on antibiotics and IV steroids. However considering her severe end-stage COPD, her overall prognostic picture does not seem to be very promising. CBC is relatively unremarkable. Electrolytes and renal profile are normal. Objective - Vital Signs Vital signs: Vital Signs Temp 97.6 F 01/15/17 08:00 Pulse 76 01/15/17 08:03 Resp 19 01/15/17 09:36 BP 149/63 01/15/17 08:00 Pulse Ox 94 L 01/15/17 08:00 Intake & Output 01/14/17 01/15/17 01/15/17 18:59 06:59 18:59 Intake Total 330 640 Output Total 800 420 Balance -470 220 Intake: IV 330 640 Sodium Chloride 0.9% 1, 280 640 000 ml @ 40 mls/hr IV . Q24H [facility] Rx#:[id number] cefTRIAXone 1,000 mg In 50 Sodium Chloride 0.9% 50 ml @ 100 mls/hr IVPB Q24HR [facility] Rx#:[id number] Output: Urine 800 420 Other: Voiding Method Bedside Commode Bedside Commode - Exam Physical Exam: Revealed a 71-year-old in mild respiratory distress, presently on nasal cannula. HEENT:[Neck is supple.] [No neck masses.] [No thyromegaly.] [No JVD.] Chest: [Diminished breath sounds at the bases, no crackles, no rhonchi, some wheezing on forced expiratory maneuver noted] Cardiac Exam: [Normal S1 and S2, no S3 gallop, no murmur.] Abdomen: [Soft, nontender, no megaly, no rebound, no guarding, normal bowel sounds.] Extremities: [No clubbing, no edema, no cyanosis.] Neurological Exam: [No focal neurologic deficit.] - Labs CBC & Chem 7: 01/15/17 04:21 01/15/17 04:21 Labs: Abnormal Lab Results - Last 24 Hours (Table) 01/14/17 01/14/17 01/14/17 Range/Units 12:27 16:51 21:04 MCV (80.0-100.0) fL Neutrophils # (1.3-7.7) k/uL Lymphocytes # (1.0-4.8) k/uL BUN (7-17) mg/dL Glucose (74-99) mg/dL POC Glucose (mg/dL) 128 H 145 H 123 H (75-99) mg/dL 01/15/17 01/15/17 01/15/17 Range/Units 04:21 04:21 07:18 MCV 102.5 H (80.0-100.0) fL Neutrophils # 9.4 H (1.3-7.7) k/uL Lymphocytes # 0.7 L (1.0-4.8) k/uL BUN 22 H (7-17) mg/dL Glucose 135 H (74-99) mg/dL POC Glucose (mg/dL) 114 H (75-99) mg/dL Assessment and Plan Plan: 1 acute on chronic hypoxic and hypercapnic respiratory failure secondary to COPD exacerbation. 2 advanced COPD, oxygen and steroid dependent with previous hospital physician for COPD exacerbation. The baseline FEV1 is at 33% of predicted. Maintained on a combination of Spiriva, Symbicort, theophylline and 5 mg of prednisone a daily basis. 3 chronic hypoxic and hypercapnic respiratory failure 4 hypertension 5 hyperlipidemia 6 osteoporosis 7 nonspecific troponin leak Recommendation: Continue present treatment plan, continue bronchodilators, Symbicort was added. Patient should remain on DVT prophylaxis. Should remain on antibiotics, steroids, bronchodilators, I will arrange for the patient to be transferred out of the ICU today, she will be on a regular medical floor, and we will continue to follow. Xanax will be continued every 8 hours as needed for anxiety. Long-term prognosis remains poor and guarded considering her underlying severe end-stage COPD. Time with Patient: Less than 30
[2017-01-15] MEDS: SYMBICORT 160-4.5 MCG INHALER INHALATION SCH ×2 (11:15→20:41)
[2017-01-15] MEDS: SODIUM CHLORIDE 0.9% 1,000 ML IV SCH (11:37)
[2017-01-15 11:41] LABS: Glucose,Whole Blood 129 mg/dL (75-99)
[2017-01-15] MEDS: ALPRAZolam 0.25 MG TAB PO PRN (12:29)
[2017-01-15 16:42] LABS: Glucose,Whole Blood 109 mg/dL (75-99)
[2017-01-15 21:42] LABS: Glucose,Whole Blood 115 mg/dL (75-99)
--- NOTE | 2017-01-15 23:47 | P.PN ---
Subjective Principal diagnosis: Acute COPD exacerbation Patient is a pleasant 71-year-old female with GOLD stage IV COPD came in with complaints of shortness of breath started 2 days ago much worse today morning and patient was requiring BiPAP patient uses 2 L of of oxygen at home. Patient quit smoking years ago. Patient denied any patient was having cough unable to bring up anything patient chest x-ray did not show any pneumonic process. Patient denied any fevers, chills, nausea, vomiting, chest pain. On 01/14/2017 Patient is currently on BiPAP machine. Breathing status is much improved now. No fever no chills. No acute overnight issues. 01/15/2017 Patient is currently transferred to medical floor. Saturating well on nasal cannula. Patient feels anxious sometimes. No fever no chills. Patient is improving symptomatically. Objective - Vital Signs Vital signs: Vital Signs Temp 97.7 F 01/15/17 15:37 Pulse 92 01/15/17 20:51 Resp 16 01/15/17 20:51 BP 146/80 01/15/17 15:37 Pulse Ox 96 01/15/17 15:37 Intake & Output 01/15/17 01/15/17 01/16/17 06:59 18:59 06:59 Intake Total 640 800 Output Total 420 60 Balance 220 740 Intake: IV 640 Sodium Chloride 0.9% 1, 640 000 ml @ 40 mls/hr IV . Q24H [facility] Rx#:[id number] Oral 800 Output: Urine 420 60 Other: Voiding Method Bedside Commode Toilet # Voids 1 - Exam GENERAL: The patient is alert and oriented x3, not in any acute distress. Well developed, well nourished. HEENT: Pupils are round and equally reacting to light. EOMI. No scleral icterus. No conjunctival pallor. Normocephalic, atraumatic. No pharyngeal erythema. No thyromegaly. CARDIOVASCULAR: S1 and S2 present. No murmurs, rubs, or gallops. PULMONARY: Significantly limited air entry into bilateral lung kent R>L, very minimal wheezing was appreciated. ABDOMEN: Soft, nontender, nondistended, normoactive bowel sounds. No palpable organomegaly. MUSCULOSKELETAL: No joint swelling or deformity. EXTREMITIES: No cyanosis, clubbing, or pedal edema. NEUROLOGICAL: Gross neurological examination did not reveal any focal deficits. SKIN: No rashes. - Labs CBC & Chem 7: 01/15/17 04:21 01/15/17 04:21 Labs: Abnormal Lab Results - Last 24 Hours (Table) 01/15/17 01/15/17 01/15/17 Range/Units 04:21 04:21 07:18 MCV 102.5 H (80.0-100.0) fL Neutrophils # 9.4 H (1.3-7.7) k/uL Lymphocytes # 0.7 L (1.0-4.8) k/uL BUN 22 H (7-17) mg/dL Glucose 135 H (74-99) mg/dL POC Glucose (mg/dL) 114 H (75-99) mg/dL 01/15/17 01/15/17 Range/Units 11:40 16:40 MCV (80.0-100.0) fL Neutrophils # (1.3-7.7) k/uL Lymphocytes # (1.0-4.8) k/uL BUN (7-17) mg/dL Glucose (74-99) mg/dL POC Glucose (mg/dL) 129 H 109 H (75-99) mg/dL Assessment and Plan Plan: #1 Acute on chronic hypoxic and hypercapnic respiratory failure secondary to COPD exacerbation: Continue with BiPAP when necessary. Patient is on azithromycin. No evidence of pneumonia on chest x-ray. #2 hypertension controlled. #3 hyperlipidemia #4 osteoporosis #5 mildly elevated troponin secondary to hypoxemia and demand mismatch. patient doesn't have any chest pain EKG is not consistent with acute ST-T wave changes. #6) advanced COPD on home oxygen and steroid dependent. Plan: Patient will be continued on DuoNeb's and Symbicort as well as IV steroids. We will continue the BiPAP machine when necessary. Continue the current management. Continue DVT prophylaxis. Pulmonary is following this patient. Further recommendations based on the clinical course.
[2017-01-16] MEDS: IPRATROPIUM-ALBUTEROL 3 ML NEB INHALATION SCH ×6 (03:32→23:37)
[2017-01-16] MEDS: methylPREDNISolone SOD SUCCI 125 MG/2 ML VIAL IV SCH ×4 (06:01→23:47)
[2017-01-16 07:26] LABS: Glucose,Whole Blood 109 mg/dL (75-99)
[2017-01-16] MEDS: INSULIN LISPRO (humaLOG) 300 UNIT/3 ML VIAL SQ SCH ×4 (07:38→21:18)
[2017-01-16] MEDS: SYMBICORT 160-4.5 MCG INHALER INHALATION SCH ×2 (07:51→20:04)
[2017-01-16] MEDS: PANTOPRAZOLE 40 MG TABLET PO SCH (08:12)
[2017-01-16] MEDS: HEPARIN SODIUM,PORCINE 5,000 UNIT/ML 1 ML VIAL SQ SCH ×2 (08:12→20:11)
[2017-01-16] MEDS: CHOLECALCIFEROL 1,000 UNIT TAB PO SCH (08:12)
[2017-01-16] MEDS: AZITHROMYCIN 500 MG TAB PO SCH (08:12)
[2017-01-16] MEDS: THEOPHYLLINE 24 HOUR 300 MG CAP.ER.24H PO SCH (08:12)
[2017-01-16] MEDS: POLYETHYLENE GLYCOL 3350 17 GM POWD.PACK PO SCH (08:13)
[2017-01-16 09:10] LABS: Basophils % (A) 0 %; CH 32.2; CHCM 31.3; Eosinophils % (A) 0 %; HCT 45.4 % (34.0-46.0); HDW 2.22; HGB 13.9 gm/dL (11.4-16.0); Luc # (Auto) 0.07; Luc % (Auto) 1; Lymphocytes # (A) 0.7 k/uL (1.0-4.8); Lymphocytes % (A) 7 %; MCH 31.7 pg (25.0-35.0); MCHC 30.6 g/dL (31.0-37.0); MCV 103.4 fL (80.0-100.0); Macrocytosis Slight; Mean Platelet Volume 9.2; Monocytes # (A) 0.5 k/uL (0-1.0); Monocytes % (A) 5 %; Neutrophils # (A) 9.1 k/uL (1.3-7.7); Neutrophils % (A) 87 %; RDW 15.1 % (11.5-15.5); WBC 10.5 k/uL (3.8-10.6); WBC (Perox) 10.64
[2017-01-16 09:24] LABS: Anion Gap 7 mmol/L; Blood Urea Nitrogen 23 mg/dL (7-17); Calcium 9.4 mg/dL (8.4-10.2); Carbon Dioxide 35 mmol/L (22-30); Chloride 100 mmol/L (98-107); Glucose 113 mg/dL (74-99); Magnesium 2.3 mg/dL (1.6-2.3); Non-African American GFR(MDRD) >60 (>60 ml/min/1.73 sqM); Phosphorous 3.1 mg/dL (2.5-4.5); Potassium 4.8 mmol/L (3.5-5.1); Sodium 142 mmol/L (137-145)
[2017-01-16] MEDS: LISINOPRIL 10 MG TAB PO SCH (09:41)
[2017-01-16] MEDS: ALPRAZolam 0.25 MG TAB PO PRN ×2 (09:49→23:48)
[2017-01-16] MEDS: SODIUM CHLORIDE 0.9% 1,000 ML IV SCH (10:34)
--- NOTE | 2017-01-16 11:28 | P.PN ---
Subjective Principal diagnosis: Acute on chronic hypoxic and hypercapnic respiratory failure secondary to COPd exacerbation. 71-year-old female patient with advanced COPD and FEV1 of 33% of predicted, goal stage IV disease, maintained on a combination of Spiriva, Symbicort, and theophylline outpatient basis and addition to Combivent rescue inhaler on an as- needed basis. She comes in to the MRSA problem because of worsening shortness of breath. No chest pain. No angina. No pleurisy. No hemoptysis. Chest x- ray showing hyperinflation. No blood gases were done. Initially she was a selective overflow. After seeing her and I will regards to the ICU as the patient is in significant respiratory distress and she is quite anxious and she is using some excessive muscle breathing while being tachypneic. No fever. No chills. No chest pain. No swelling in lower extremities. No nausea. No vomiting. No change in mental status. ABGs are still pending. The patient was also placed on BiPAP. Patient was seen today on 01/14/2017, remains in the intensive care unit, presently on nasal cannula at 3 L/m, saturating quite well, does not seem to be in severe respiratory distress anymore. Patient is able to communicate, apparently she has some issues with that Perforomist, and I went ahead and discontinued Perforomist and Pulmicort and switched her to Symbicort. In the meantime she will remain on DuoNeb, she will remain on multiple bronchodilators as listed by Dr. Ventura, and she will remain on GI and DVT prophylaxis. Labs were reviewed she had basically normal metabolic profile. Normal CBC. Normal renal profile. Chest x-ray showed no evidence of acute process, she has chronic changes mostly. She has hyperinflation compatible with COPD and scattered senescent parenchymal changes. Over the last 24 hours, patient has been intermittently on BiPAP and it is mostly used as needed. Reevaluated today on 01/15/2017, patient remains in the intensive care unit, intermittently on nasal cannula and BiPAP alternating. Earlier this morning she was noted to be tachypneic, and bit tachycardic, hence I recommended starting the patient again on BiPAP. Patient is optimized on multiple bronchodilators, she is also on antibiotics and IV steroids. However considering her severe end-stage COPD, her overall prognostic picture does not seem to be very promising. CBC is relatively unremarkable. Electrolytes and renal profile are normal. The patient is seen again today 01/16/2017 in follow-up on the regular medical floor. She is awake and alert in no acute distress. She states her breathing is slightly better today as compared to yesterday. She did utilize the BiPAP last evening. She is currently sitting up at the bedside and maintaining good O2 saturations in the upper 90s on 2 L/m per nasal cannula. She is anxious to go home. She denies any productive cough at this time. She does have dyspnea on minimal exertion. Objective - Vital Signs Vital signs: Vital Signs Temp 97.3 F L 01/16/17 07:00 Pulse 82 01/16/17 08:01 Resp 18 01/16/17 07:00 BP 165/95 01/16/17 07:00 Pulse Ox 98 01/16/17 07:00 Intake & Output 01/15/17 01/16/17 01/16/17 18:59 06:59 18:59 Intake Total 800 600 Output Total 60 Balance 740 600 Intake: Oral 800 600 Output: Urine 60 Other: Voiding Method Toilet Toilet Toilet # Voids 1 1 - Exam GENERAL EXAM: Alert, fairly comfortable in no apparent distress. HEAD: Normocephalic. EYES: Normal reaction of pupils, equal size. NOSE: Clear with pink turbinates. THROAT: No erythema or exudates. NECK: No masses, no JVD. CHEST: No chest wall deformity. LUNGS: Equal air entry with bilateral end expiratory wheeze. Diminished throughout. CVS: S1 and S2 normal with no audible murmurs, regular rhythm. ABDOMEN: No hepatosplenomegaly, normal bowel sounds, no guarding or rigidity. Extremities: There is areas of ecchymosis from prolonged and chronic steroid use. No significant edema. No clubbing, no cyanosis. Peripheral pulses are intact. - Labs CBC & Chem 7: 01/16/17 08:19 01/16/17 08:19 Labs: Abnormal Lab Results - Last 24 Hours (Table) 01/15/17 01/15/17 01/15/17 Range/Units 11:40 16:40 21:21 MCV (80.0-100.0) fL MCHC (31.0-37.0) g/dL Neutrophils # (1.3-7.7) k/uL Lymphocytes # (1.0-4.8) k/uL Carbon Dioxide (22-30) mmol/L BUN (7-17) mg/dL Glucose (74-99) mg/dL POC Glucose (mg/dL) 129 H 109 H 115 H (75-99) mg/dL 01/16/17 01/16/17 01/16/17 Range/Units 07:24 08:19 08:19 MCV 103.4 H (80.0-100.0) fL MCHC 30.6 L (31.0-37.0) g/dL Neutrophils # 9.1 H (1.3-7.7) k/uL Lymphocytes # 0.7 L (1.0-4.8) k/uL Carbon Dioxide 35 H (22-30) mmol/L BUN 23 H (7-17) mg/dL Glucose 113 H (74-99) mg/dL POC Glucose (mg/dL) 109 H (75-99) mg/dL Assessment and Plan Plan: Impression: 1 acute on chronic hypoxic and hypercapnic respiratory failure secondary to COPD exacerbation. 2 advanced COPD, oxygen and steroid dependent with previous hospital physician for COPD exacerbation. The baseline FEV1 is at 33% of predicted. Maintained on a combination of Spiriva, Symbicort, theophylline and 5 mg of prednisone a daily basis. 3 chronic hypoxic and hypercapnic respiratory failure 4 hypertension 5 hyperlipidemia 6 osteoporosis 7 nonspecific troponin leak Plan: The patient was seen and evaluated by Dr. Parker. We'll continue with her current COPD treatment. She is improved today as compared to yesterday. Nearly back to her baseline. She is anxious to go home. She does have oxygen and a nebulizer. Her overall prognosis does remain quite poor and guarded at this point.
[2017-01-16] MEDS: guaiFENesin 600 MG TABLET.ER PO PRN (12:12)
--- NOTE | 2017-01-16 12:14 | XR ---
EXAMINATION TYPE: XR chest 1V DATE OF EXAM: 01/16/2017 COMPARISON: 01/15/2017 HISTORY: 71-year-old female with shortness of breath, COPD TECHNIQUE: Single frontal view of the chest is obtained. FINDINGS: Heart is normal size. Atherosclerotic arch calcifications. Relative upper lung lucency suggesting und erlying emphysema and bullous change. Leftward patient rotation alters the normal cardiomediastinal c ontours and casts differential density over the left hemithorax. No ryan consolidation or significan t pleural effusion seen. IMPRESSION: Limited rotated exam. There is COPD with possible increasing interstitial densities in the mid and lo wer lungs some of which may be projectional. Follow-up recommended.
[2017-01-16 12:28] LABS: Glucose,Whole Blood 126 mg/dL (75-99)
[2017-01-16 17:18] LABS: Glucose,Whole Blood 108 mg/dL (75-99)
[2017-01-16 20:56] LABS: Glucose,Whole Blood 117 mg/dL (75-99)
[2017-01-17] MEDS: IPRATROPIUM-ALBUTEROL 3 ML NEB INHALATION SCH ×5 (03:39→19:35)
[2017-01-17] MEDS: methylPREDNISolone SOD SUCCI 125 MG/2 ML VIAL IV SCH ×4 (06:08→23:29)
[2017-01-17 07:34] LABS: Glucose,Whole Blood 117 mg/dL (75-99)
[2017-01-17] MEDS: SYMBICORT 160-4.5 MCG INHALER INHALATION SCH ×2 (07:49→19:35)
[2017-01-17] MEDS: INSULIN LISPRO (humaLOG) 300 UNIT/3 ML VIAL SQ SCH ×4 (08:03→21:09)
[2017-01-17] MEDS: THEOPHYLLINE 24 HOUR 300 MG CAP.ER.24H PO SCH (08:07)
[2017-01-17] MEDS: POLYETHYLENE GLYCOL 3350 17 GM POWD.PACK PO SCH (08:07)
[2017-01-17] MEDS: FUROSEMIDE 20 MG TAB PO SCH (08:07)
[2017-01-17] MEDS: CHOLECALCIFEROL 1,000 UNIT TAB PO SCH (08:08)
[2017-01-17] MEDS: AZITHROMYCIN 500 MG TAB PO SCH (08:08)
[2017-01-17] MEDS: PANTOPRAZOLE 40 MG TABLET PO SCH (08:08)
[2017-01-17] MEDS: HEPARIN SODIUM,PORCINE 5,000 UNIT/ML 1 ML VIAL SQ SCH ×2 (08:08→20:01)
[2017-01-17] MEDS: LISINOPRIL 10 MG TAB PO SCH (08:08)
[2017-01-17 08:36] LABS: Basophils % (A) 0 %; CH 32.3; CHCM 31.8; Eosinophils % (A) 0 %; HCT 41.8 % (34.0-46.0); HDW 2.24; HGB 13.1 gm/dL (11.4-16.0); Luc # (Auto) 0.07; Luc % (Auto) 1; Lymphocytes # (A) 0.5 k/uL (1.0-4.8); Lymphocytes % (A) 6 %; MCH 31.9 pg (25.0-35.0); MCHC 31.2 g/dL (31.0-37.0); MCV 102.1 fL (80.0-100.0); Macrocytosis Slight; Mean Platelet Volume 8.8; Monocytes # (A) 0.5 k/uL (0-1.0); Monocytes % (A) 6 %; Neutrophils # (A) 7.8 k/uL (1.3-7.7); Neutrophils % (A) 88 %; RBC 4.09 m/uL (3.80-5.40); RDW 15.1 % (11.5-15.5); WBC 8.9 k/uL (3.8-10.6); WBC (Perox) 8.82
[2017-01-17 09:06] LABS: Anion Gap 6 mmol/L; Blood Urea Nitrogen 21 mg/dL (7-17); Calcium 9.1 mg/dL (8.4-10.2); Carbon Dioxide 33 mmol/L (22-30); Chloride 100 mmol/L (98-107); Glucose 111 mg/dL (74-99); Magnesium 2.3 mg/dL (1.6-2.3); Non-African American GFR(MDRD) >60 (>60 ml/min/1.73 sqM); Phosphorous 3.1 mg/dL (2.5-4.5); Potassium 4.2 mmol/L (3.5-5.1); Sodium 139 mmol/L (137-145)
--- NOTE | 2017-01-17 11:43 | P.PN ---
Subjective Principal diagnosis: Acute on chronic hypoxic and hypercapnic respiratory failure secondary to COPd exacerbation. 71-year-old female patient with advanced COPD and FEV1 of 33% of predicted, goal stage IV disease, maintained on a combination of Spiriva, Symbicort, and theophylline outpatient basis and addition to Combivent rescue inhaler on an as- needed basis. She comes in to the MRSA problem because of worsening shortness of breath. No chest pain. No angina. No pleurisy. No hemoptysis. Chest x- ray showing hyperinflation. No blood gases were done. Initially she was a selective overflow. After seeing her and I will regards to the ICU as the patient is in significant respiratory distress and she is quite anxious and she is using some excessive muscle breathing while being tachypneic. No fever. No chills. No chest pain. No swelling in lower extremities. No nausea. No vomiting. No change in mental status. ABGs are still pending. The patient was also placed on BiPAP. Patient was seen today on 01/14/2017, remains in the intensive care unit, presently on nasal cannula at 3 L/m, saturating quite well, does not seem to be in severe respiratory distress anymore. Patient is able to communicate, apparently she has some issues with that Perforomist, and I went ahead and discontinued Perforomist and Pulmicort and switched her to Symbicort. In the meantime she will remain on DuoNeb, she will remain on multiple bronchodilators as listed by Dr. Ventura, and she will remain on GI and DVT prophylaxis. Labs were reviewed she had basically normal metabolic profile. Normal CBC. Normal renal profile. Chest x-ray showed no evidence of acute process, she has chronic changes mostly. She has hyperinflation compatible with COPD and scattered senescent parenchymal changes. Over the last 24 hours, patient has been intermittently on BiPAP and it is mostly used as needed. Reevaluated today on 01/15/2017, patient remains in the intensive care unit, intermittently on nasal cannula and BiPAP alternating. Earlier this morning she was noted to be tachypneic, and bit tachycardic, hence I recommended starting the patient again on BiPAP. Patient is optimized on multiple bronchodilators, she is also on antibiotics and IV steroids. However considering her severe end-stage COPD, her overall prognostic picture does not seem to be very promising. CBC is relatively unremarkable. Electrolytes and renal profile are normal. The patient is seen again today 01/16/2017 in follow-up on the regular medical floor. She is awake and alert in no acute distress. She states her breathing is slightly better today as compared to yesterday. She did utilize the BiPAP last evening. She is currently sitting up at the bedside and maintaining good O2 saturations in the upper 90s on 2 L/m per nasal cannula. She is anxious to go home. She denies any productive cough at this time. She does have dyspnea on minimal exertion. The patient is seen again today 01/17/2017 in follow-up on the regular medical floor. She is currently resting fairly comfortably in bed. She does remain dyspneic with minimal conversation. She is breathing easier today as compared to yesterday however. She continues to maintain good O2 saturations in the mid 90s on 2 L/m nasal cannula. She is currently afebrile. Hemodynamically stable. No leukocytosis. She is continued on azithromycin, Symbicort, bronchodilators and IV Solu-Medrol. She has been slow to progress. Objective - Vital Signs Vital signs: Vital Signs Temp 97.0 F L 01/17/17 07:00 Pulse 76 01/17/17 11:26 Resp 16 01/17/17 07:00 BP 143/75 01/17/17 07:00 Pulse Ox 97 01/17/17 07:00 Intake & Output 01/16/17 01/17/17 01/17/17 18:59 06:59 18:59 Intake Total 700 Balance 700 Intake: Oral 700 Other: Voiding Method Toilet Toilet # Voids 1 2 - Exam GENERAL EXAM: Alert, fairly comfortable in no apparent distress. HEAD: Normocephalic. EYES: Normal reaction of pupils, equal size. NOSE: Clear with pink turbinates. THROAT: No erythema or exudates. NECK: No masses, no JVD. CHEST: No chest wall deformity. LUNGS: Equal air entry with bilateral end expiratory wheeze. Diminished throughout. CVS: S1 and S2 normal with no audible murmurs, regular rhythm. ABDOMEN: No hepatosplenomegaly, normal bowel sounds, no guarding or rigidity. Extremities: There is areas of ecchymosis from prolonged and chronic steroid use. No significant edema. No clubbing, no cyanosis. Peripheral pulses are intact. - Labs CBC & Chem 7: 01/17/17 07:56 01/17/17 07:56 Labs: Abnormal Lab Results - Last 24 Hours (Table) 01/16/17 01/16/17 01/16/17 Range/Units 12:27 17:17 20:51 MCV (80.0-100.0) fL Neutrophils # (1.3-7.7) k/uL Lymphocytes # (1.0-4.8) k/uL Carbon Dioxide (22-30) mmol/L BUN (7-17) mg/dL Glucose (74-99) mg/dL POC Glucose (mg/dL) 126 H 108 H 117 H (75-99) mg/dL 01/17/17 01/17/17 01/17/17 Range/Units 07:09 07:56 07:56 MCV 102.1 H (80.0-100.0) fL Neutrophils # 7.8 H (1.3-7.7) k/uL Lymphocytes # 0.5 L (1.0-4.8) k/uL Carbon Dioxide 33 H (22-30) mmol/L BUN 21 H (7-17) mg/dL Glucose 111 H (74-99) mg/dL POC Glucose (mg/dL) 117 H (75-99) mg/dL Assessment and Plan Plan: Impression: 1 acute on chronic hypoxic and hypercapnic respiratory failure secondary to COPD exacerbation. 2 advanced COPD, oxygen and steroid dependent with previous hospital physician for COPD exacerbation. The baseline FEV1 is at 33% of predicted. Maintained on a combination of Spiriva, Symbicort, theophylline and 5 mg of prednisone a daily basis. 3 chronic hypoxic and hypercapnic respiratory failure 4 hypertension 5 hyperlipidemia 6 osteoporosis 7 nonspecific troponin leak Plan: The patient was seen and evaluated by Dr. Parker. We'll continue with her current COPD exacerbation treatment. She is improved today as compared to yesterday. Nearly back to her baseline. Her overall prognosis does remain quite poor and guarded at this point. We will continue to follow and make further recommendations based on her clinical status.
--- NOTE | 2017-01-17 11:49 | P.PN ---
Subjective Principal diagnosis: Acute COPD exacerbation Patient is a pleasant 71-year-old female with GOLD stage IV COPD came in with complaints of shortness of breath started 2 days ago much worse today morning and patient was requiring BiPAP patient uses 2 L of of oxygen at home. Patient quit smoking years ago. Patient denied any patient was having cough unable to bring up anything patient chest x-ray did not show any pneumonic process. Patient denied any fevers, chills, nausea, vomiting, chest pain. On 01/14/2017 Patient is currently on BiPAP machine. Breathing status is much improved now. No fever no chills. No acute overnight issues. 01/15/2017 Patient is currently transferred to medical floor. Saturating well on nasal cannula. Patient feels anxious sometimes. No fever no chills. Patient is improving symptomatically. 01/16/2017 Patient is on nasal cannula. Patient feels very anxious to go home. Patient says that she still having trouble breath. No fever no chills. Objective - Vital Signs Vital signs: Vital Signs Temp 97.7 F 01/16/17 15:00 Pulse 78 01/16/17 20:14 Resp 16 01/16/17 15:00 BP 135/79 01/16/17 15:00 Pulse Ox 94 L 01/16/17 16:39 Intake & Output 01/16/17 01/16/17 01/17/17 06:59 18:59 06:59 Intake Total 600 Balance 600 Intake: Oral 600 Other: Voiding Method Toilet Toilet # Voids 1 1 - Exam GENERAL: The patient is alert and oriented x3, not in any acute distress. Well developed, well nourished. HEENT: Pupils are round and equally reacting to light. EOMI. No scleral icterus. No conjunctival pallor. Normocephalic, atraumatic. No pharyngeal erythema. No thyromegaly. CARDIOVASCULAR: S1 and S2 present. No murmurs, rubs, or gallops. PULMONARY: Significantly limited air entry into bilateral lung kent R>L, very minimal wheezing was appreciated. ABDOMEN: Soft, nontender, nondistended, normoactive bowel sounds. No palpable organomegaly. MUSCULOSKELETAL: No joint swelling or deformity. EXTREMITIES: No cyanosis, clubbing, or pedal edema. NEUROLOGICAL: Gross neurological examination did not reveal any focal deficits. SKIN: No rashes. - Labs CBC & Chem 7: 01/17/17 07:56 01/17/17 07:56 Labs: Abnormal Lab Results - Last 24 Hours (Table) 01/16/17 01/16/17 01/16/17 Range/Units 07:24 08:19 08:19 MCV 103.4 H (80.0-100.0) fL MCHC 30.6 L (31.0-37.0) g/dL Neutrophils # 9.1 H (1.3-7.7) k/uL Lymphocytes # 0.7 L (1.0-4.8) k/uL Carbon Dioxide 35 H (22-30) mmol/L BUN 23 H (7-17) mg/dL Glucose 113 H (74-99) mg/dL POC Glucose (mg/dL) 109 H (75-99) mg/dL 01/16/17 01/16/17 01/16/17 Range/Units 12:27 17:17 20:51 MCV (80.0-100.0) fL MCHC (31.0-37.0) g/dL Neutrophils # (1.3-7.7) k/uL Lymphocytes # (1.0-4.8) k/uL Carbon Dioxide (22-30) mmol/L BUN (7-17) mg/dL Glucose (74-99) mg/dL POC Glucose (mg/dL) 126 H 108 H 117 H (75-99) mg/dL Assessment and Plan Plan: #1 Acute on chronic hypoxic and hypercapnic respiratory failure secondary to COPD exacerbation: Continue with BiPAP when necessary. Patient is on azithromycin. No evidence of pneumonia on chest x-ray. #2 hypertension controlled. #3 hyperlipidemia #4 osteoporosis #5 mildly elevated troponin secondary to hypoxemia and demand mismatch. patient doesn't have any chest pain EKG is not consistent with acute ST-T wave changes. #6) advanced COPD on home oxygen and steroid dependent. Plan: Patient will be continued on DuoNeb's and Symbicort as well as IV steroids. We will continue the BiPAP machine when necessary. Continue the current management. Continue DVT prophylaxis. Pulmonary is following this patient. Further recommendations based on the clinical course.
[2017-01-17 12:01] LABS: Glucose,Whole Blood 129 mg/dL (75-99)
[2017-01-17 17:16] LABS: Glucose,Whole Blood 102 mg/dL (75-99)
[2017-01-17 20:43] LABS: Glucose,Whole Blood 153 mg/dL (75-99)
[2017-01-17] MEDS: ALPRAZolam 0.25 MG TAB PO PRN (23:28)
[2017-01-18] MEDS: IPRATROPIUM-ALBUTEROL 3 ML NEB INHALATION SCH ×7 (00:12→23:51)
[2017-01-18] MEDS: methylPREDNISolone SOD SUCCI 125 MG/2 ML VIAL IV SCH ×4 (06:22→23:36)
[2017-01-18] MEDS: POLYETHYLENE GLYCOL 3350 17 GM POWD.PACK PO SCH (07:16)
[2017-01-18] MEDS: INSULIN LISPRO (humaLOG) 300 UNIT/3 ML VIAL SQ SCH ×4 (07:22→21:30)
[2017-01-18] MEDS: HEPARIN SODIUM,PORCINE 5,000 UNIT/ML 1 ML VIAL SQ SCH ×2 (07:23→20:16)
[2017-01-18] MEDS: LISINOPRIL 10 MG TAB PO SCH (07:23)
[2017-01-18] MEDS: PANTOPRAZOLE 40 MG TABLET PO SCH (07:23)
[2017-01-18] MEDS: THEOPHYLLINE 24 HOUR 300 MG CAP.ER.24H PO SCH (07:23)
[2017-01-18] MEDS: AZITHROMYCIN 500 MG TAB PO SCH (07:23)
[2017-01-18] MEDS: CHOLECALCIFEROL 1,000 UNIT TAB PO SCH (07:23)
[2017-01-18 07:42] LABS: Glucose,Whole Blood 129 mg/dL (75-99)
[2017-01-18 07:47] LABS: Basophils % (A) 0 %; CH 32.4; CHCM 31.4; Eosinophils % (A) 0 %; HCT 43.6 % (34.0-46.0); HDW 2.25; HGB 13.2 gm/dL (11.4-16.0); Luc # (Auto) 0.06; Luc % (Auto) 1; Lymphocytes # (A) 0.7 k/uL (1.0-4.8); Lymphocytes % (A) 8 %; MCH 31.2 pg (25.0-35.0); MCHC 30.2 g/dL (31.0-37.0); MCV 103.4 fL (80.0-100.0); Macrocytosis Slight; Mean Platelet Volume 9.1; Monocytes # (A) 0.5 k/uL (0-1.0); Monocytes % (A) 6 %; Neutrophils # (A) 7.8 k/uL (1.3-7.7); Neutrophils % (A) 86 %; RBC 4.22 m/uL (3.80-5.40); RDW 15.1 % (11.5-15.5); WBC 9.1 k/uL (3.8-10.6); WBC (Perox) 8.68
[2017-01-18] MEDS: SYMBICORT 160-4.5 MCG INHALER INHALATION SCH ×2 (07:50→21:03)
[2017-01-18 08:07] LABS: Anion Gap 6 mmol/L; Blood Urea Nitrogen 21 mg/dL (7-17); Carbon Dioxide 37 mmol/L (22-30); Chloride 98 mmol/L (98-107); Glucose 115 mg/dL (74-99); Magnesium 2.3 mg/dL (1.6-2.3); Non-African American GFR(MDRD) >60 (>60 ml/min/1.73 sqM); Phosphorous 3.7 mg/dL (2.5-4.5); Potassium 4.4 mmol/L (3.5-5.1); Sodium 141 mmol/L (137-145)
[2017-01-18 11:38] LABS: Glucose,Whole Blood 141 mg/dL (75-99)
--- NOTE | 2017-01-18 11:49 | P.PN ---
Subjective Principal diagnosis: Acute on chronic hypoxic and hypercapnic respiratory failure secondary to COPD exacerbation. 71-year-old female patient with advanced COPD and FEV1 of 33% of predicted, goal stage IV disease, maintained on a combination of Spiriva, Symbicort, and theophylline outpatient basis and addition to Combivent rescue inhaler on an as- needed basis. She comes in to the MRSA problem because of worsening shortness of breath. No chest pain. No angina. No pleurisy. No hemoptysis. Chest x- ray showing hyperinflation. No blood gases were done. Initially she was a selective overflow. After seeing her and I will regards to the ICU as the patient is in significant respiratory distress and she is quite anxious and she is using some excessive muscle breathing while being tachypneic. No fever. No chills. No chest pain. No swelling in lower extremities. No nausea. No vomiting. No change in mental status. ABGs are still pending. The patient was also placed on BiPAP. Patient was seen today on 01/14/2017, remains in the intensive care unit, presently on nasal cannula at 3 L/m, saturating quite well, does not seem to be in severe respiratory distress anymore. Patient is able to communicate, apparently she has some issues with that Perforomist, and I went ahead and discontinued Perforomist and Pulmicort and switched her to Symbicort. In the meantime she will remain on DuoNeb, she will remain on multiple bronchodilators as listed by Dr. Ventura, and she will remain on GI and DVT prophylaxis. Labs were reviewed she had basically normal metabolic profile. Normal CBC. Normal renal profile. Chest x-ray showed no evidence of acute process, she has chronic changes mostly. She has hyperinflation compatible with COPD and scattered senescent parenchymal changes. Over the last 24 hours, patient has been intermittently on BiPAP and it is mostly used as needed. Reevaluated today on 01/15/2017, patient remains in the intensive care unit, intermittently on nasal cannula and BiPAP alternating. Earlier this morning she was noted to be tachypneic, and bit tachycardic, hence I recommended starting the patient again on BiPAP. Patient is optimized on multiple bronchodilators, she is also on antibiotics and IV steroids. However considering her severe end-stage COPD, her overall prognostic picture does not seem to be very promising. CBC is relatively unremarkable. Electrolytes and renal profile are normal. The patient is seen again today 01/16/2017 in follow-up on the regular medical floor. She is awake and alert in no acute distress. She states her breathing is slightly better today as compared to yesterday. She did utilize the BiPAP last evening. She is currently sitting up at the bedside and maintaining good O2 saturations in the upper 90s on 2 L/m per nasal cannula. She is anxious to go home. She denies any productive cough at this time. She does have dyspnea on minimal exertion. The patient is seen again today 01/17/2017 in follow-up on the regular medical floor. She is currently resting fairly comfortably in bed. She does remain dyspneic with minimal conversation. She is breathing easier today as compared to yesterday however. She continues to maintain good O2 saturations in the mid 90s on 2 L/m nasal cannula. She is currently afebrile. Hemodynamically stable. No leukocytosis. She is continued on azithromycin, Symbicort, bronchodilators and IV Solu-Medrol. She has been slow to progress. The patient is seen again today 01/18/2017 in follow-up on the regular medical floor. She is currently resting fairly comfortably in bed. She is breathing a little easier today as compared to yesterday. She is less dyspneic on conversation as well. She states she's been utilizing the BiPAP on and off but only tolerates it for couple hours at a time. She is currently maintaining good O2 saturations in the mid 90s on 2 L/m per nasal cannula. No significant tachycardia. No tachypnea. She has been afebrile. No leukocytosis. Objective - Vital Signs Vital signs: Vital Signs Temp 97.1 F L 01/18/17 07:00 Pulse 88 01/18/17 11:43 Resp 20 01/18/17 07:00 BP 151/84 01/18/17 07:00 Pulse Ox 97 01/18/17 07:52 Intake & Output 01/17/17 01/18/17 01/18/17 18:59 06:59 18:59 Other: Voiding Method Toilet Toilet # Voids 3 1 - Exam GENERAL EXAM: Alert, fairly comfortable in no apparent distress. HEAD: Normocephalic. EYES: Normal reaction of pupils, equal size. NOSE: Clear with pink turbinates. THROAT: No erythema or exudates. NECK: No masses, no JVD. CHEST: No chest wall deformity. LUNGS: Equal air entry with bilateral end expiratory wheeze. Diminished throughout. CVS: S1 and S2 normal with no audible murmurs, regular rhythm. ABDOMEN: No hepatosplenomegaly, normal bowel sounds, no guarding or rigidity. Extremities: There is areas of ecchymosis from prolonged and chronic steroid use. No significant edema. No clubbing, no cyanosis. Peripheral pulses are intact. - Labs CBC & Chem 7: 01/18/17 07:03 01/18/17 07:03 Labs: Abnormal Lab Results - Last 24 Hours (Table) 01/17/17 01/17/17 01/17/17 Range/Units 12:00 17:07 20:41 MCV (80.0-100.0) fL MCHC (31.0-37.0) g/dL Neutrophils # (1.3-7.7) k/uL Lymphocytes # (1.0-4.8) k/uL Carbon Dioxide (22-30) mmol/L BUN (7-17) mg/dL Glucose (74-99) mg/dL POC Glucose (mg/dL) 129 H 102 H 153 H (75-99) mg/dL 01/18/17 01/18/17 01/18/17 Range/Units 07:03 07:03 07:20 MCV 103.4 H (80.0-100.0) fL MCHC 30.2 L (31.0-37.0) g/dL Neutrophils # 7.8 H (1.3-7.7) k/uL Lymphocytes # 0.7 L (1.0-4.8) k/uL Carbon Dioxide 37 H (22-30) mmol/L BUN 21 H (7-17) mg/dL Glucose 115 H (74-99) mg/dL POC Glucose (mg/dL) 129 H (75-99) mg/dL 01/18/17 Range/Units 11:36 MCV (80.0-100.0) fL MCHC (31.0-37.0) g/dL Neutrophils # (1.3-7.7) k/uL Lymphocytes # (1.0-4.8) k/uL Carbon Dioxide (22-30) mmol/L BUN (7-17) mg/dL Glucose (74-99) mg/dL POC Glucose (mg/dL) 141 H (75-99) mg/dL Assessment and Plan Plan: Impression: 1 acute on chronic hypoxic and hypercapnic respiratory failure secondary to COPD exacerbation. 2 advanced COPD, oxygen and steroid dependent with previous hospital physician for COPD exacerbation. The baseline FEV1 is at 33% of predicted. Maintained on a combination of Spiriva, Symbicort, theophylline and 5 mg of prednisone a daily basis. 3 chronic hypoxic and hypercapnic respiratory failure 4 hypertension 5 hyperlipidemia 6 osteoporosis 7 nonspecific troponin leak Plan: The patient was seen and evaluated by Dr. Parker. We'll continue with her current COPD exacerbation treatment. Her overall prognosis does remain quite poor and guarded at this point. We will continue to follow and make further recommendations based on her clinical status. Possibly home in the next 24-48 hours.
[2017-01-18 14:48] VITALS: BMI 22.6
[2017-01-18 17:20] LABS: Glucose,Whole Blood 153 mg/dL (75-99)
[2017-01-18 21:45] LABS: Glucose,Whole Blood 110 mg/dL (75-99)
--- NOTE | 2017-01-19 00:01 | P.PN ---
Subjective Principal diagnosis: Acute COPD exacerbation Patient is a pleasant 71-year-old female with GOLD stage IV COPD came in with complaints of shortness of breath started 2 days ago much worse today morning and patient was requiring BiPAP patient uses 2 L of of oxygen at home. Patient quit smoking years ago. Patient denied any patient was having cough unable to bring up anything patient chest x-ray did not show any pneumonic process. Patient denied any fevers, chills, nausea, vomiting, chest pain. On 01/14/2017 Patient is currently on BiPAP machine. Breathing status is much improved now. No fever no chills. No acute overnight issues. 01/15/2017 Patient is currently transferred to medical floor. Saturating well on nasal cannula. Patient feels anxious sometimes. No fever no chills. Patient is improving symptomatically. 01/16/2017 Patient is on nasal cannula. Patient feels very anxious to go home. Patient says that she still having trouble breath. No fever no chills. 01/17/2017 Patient currently saturating on a cannula. Did have to use BiPAP last night. Patient says that her breathing is getting better. Patient is still short of breath with conversation. No fever no chills. Able to sit on the bed with minimal short of breath. No acute overnight issues. No chest pain. Objective - Vital Signs Vital signs: Vital Signs Temp 97.0 F L 01/17/17 15:00 Pulse 80 01/17/17 19:49 Resp 20 01/17/17 15:00 BP 135/90 01/17/17 15:00 Pulse Ox 100 01/17/17 15:00 Intake & Output 01/17/17 01/17/17 01/18/17 06:59 18:59 06:59 Intake Total 700 Balance 700 Intake: Oral 700 Other: Voiding Method Toilet # Voids 2 3 - Exam GENERAL: The patient is alert and oriented x3, not in any acute distress. Well developed, well nourished. HEENT: Pupils are round and equally reacting to light. EOMI. No scleral icterus. No conjunctival pallor. Normocephalic, atraumatic. No pharyngeal erythema. No thyromegaly. CARDIOVASCULAR: S1 and S2 present. No murmurs, rubs, or gallops. PULMONARY: Significantly limited air entry into bilateral lung kent R>L, very minimal wheezing was appreciated. ABDOMEN: Soft, nontender, nondistended, normoactive bowel sounds. No palpable organomegaly. MUSCULOSKELETAL: No joint swelling or deformity. EXTREMITIES: No cyanosis, clubbing, or pedal edema. NEUROLOGICAL: Gross neurological examination did not reveal any focal deficits. SKIN: No rashes. - Labs CBC & Chem 7: 01/18/17 07:03 01/18/17 07:03 Labs: Abnormal Lab Results - Last 24 Hours (Table) 01/17/17 01/17/17 01/17/17 Range/Units 07:09 07:56 07:56 MCV 102.1 H (80.0-100.0) fL Neutrophils # 7.8 H (1.3-7.7) k/uL Lymphocytes # 0.5 L (1.0-4.8) k/uL Carbon Dioxide 33 H (22-30) mmol/L BUN 21 H (7-17) mg/dL Glucose 111 H (74-99) mg/dL POC Glucose (mg/dL) 117 H (75-99) mg/dL 01/17/17 01/17/17 01/17/17 Range/Units 12:00 17:07 20:41 MCV (80.0-100.0) fL Neutrophils # (1.3-7.7) k/uL Lymphocytes # (1.0-4.8) k/uL Carbon Dioxide (22-30) mmol/L BUN (7-17) mg/dL Glucose (74-99) mg/dL POC Glucose (mg/dL) 129 H 102 H 153 H (75-99) mg/dL Assessment and Plan Plan: #1 Acute on chronic hypoxic and hypercapnic respiratory failure secondary to COPD exacerbation: Continue with BiPAP when necessary. Patient is on azithromycin. No evidence of pneumonia on chest x-ray. #2 hypertension controlled. #3 hyperlipidemia #4 osteoporosis #5 mildly elevated troponin secondary to hypoxemia and demand mismatch. patient doesn't have any chest pain EKG is not consistent with acute ST-T wave changes. #6) advanced COPD on home oxygen and steroid dependent. Plan: Patient will be continued on DuoNeb's and Symbicort as well as IV steroids. We will continue the BiPAP machine when necessary. Continue the current management. Continue DVT prophylaxis. Pulmonary is following this patient. Further recommendations based on the clinical course.
--- NOTE | 2017-01-19 00:02 | P.PN ---
Subjective Principal diagnosis: Acute COPD exacerbation Patient is a pleasant 71-year-old female with GOLD stage IV COPD came in with complaints of shortness of breath started 2 days ago much worse today morning and patient was requiring BiPAP patient uses 2 L of of oxygen at home. Patient quit smoking years ago. Patient denied any patient was having cough unable to bring up anything patient chest x-ray did not show any pneumonic process. Patient denied any fevers, chills, nausea, vomiting, chest pain. On 01/14/2017 Patient is currently on BiPAP machine. Breathing status is much improved now. No fever no chills. No acute overnight issues. 01/15/2017 Patient is currently transferred to medical floor. Saturating well on nasal cannula. Patient feels anxious sometimes. No fever no chills. Patient is improving symptomatically. 01/16/2017 Patient is on nasal cannula. Patient feels very anxious to go home. Patient says that she still having trouble breath. No fever no chills. 01/17/2017 Patient currently saturating on a cannula. Did have to use BiPAP last night. Patient says that her breathing is getting better. Patient is still short of breath with conversation. No fever no chills. Able to sit on the bed with minimal short of breath. No acute overnight issues. No chest pain. 01/18/2017 Patient did use IPAP pressure last night. Currently saturating well on all cannula. Patient is improving clinically. Breathing is better today. No fever no chills. No acute overnight issues. Patient is continued to be on IV steroids. Objective - Vital Signs Vital signs: Vital Signs Temp 97.3 F L 01/18/17 14:29 Pulse 104 H 01/18/17 21:16 Resp 21 01/18/17 14:29 BP 146/79 01/18/17 14:29 Pulse Ox 97 01/18/17 16:46 Intake & Output 01/18/17 01/18/17 01/19/17 06:59 18:59 06:59 Weight 56 kg Other: Voiding Method Toilet # Voids 1 3 - Exam GENERAL: The patient is alert and oriented x3, not in any acute distress. Well developed, well nourished. HEENT: Pupils are round and equally reacting to light. EOMI. No scleral icterus. No conjunctival pallor. Normocephalic, atraumatic. No pharyngeal erythema. No thyromegaly. CARDIOVASCULAR: S1 and S2 present. No murmurs, rubs, or gallops. PULMONARY: Significantly limited air entry into bilateral lung kent R>L, very minimal wheezing was appreciated. ABDOMEN: Soft, nontender, nondistended, normoactive bowel sounds. No palpable organomegaly. MUSCULOSKELETAL: No joint swelling or deformity. EXTREMITIES: No cyanosis, clubbing, or pedal edema. NEUROLOGICAL: Gross neurological examination did not reveal any focal deficits. SKIN: No rashes. - Labs CBC & Chem 7: 01/18/17 07:03 01/18/17 07:03 Labs: Abnormal Lab Results - Last 24 Hours (Table) 01/18/17 01/18/17 01/18/17 Range/Units 07:03 07:03 07:20 MCV 103.4 H (80.0-100.0) fL MCHC 30.2 L (31.0-37.0) g/dL Neutrophils # 7.8 H (1.3-7.7) k/uL Lymphocytes # 0.7 L (1.0-4.8) k/uL Carbon Dioxide 37 H (22-30) mmol/L BUN 21 H (7-17) mg/dL Glucose 115 H (74-99) mg/dL POC Glucose (mg/dL) 129 H (75-99) mg/dL 01/18/17 01/18/17 Range/Units 11:36 17:15 MCV (80.0-100.0) fL MCHC (31.0-37.0) g/dL Neutrophils # (1.3-7.7) k/uL Lymphocytes # (1.0-4.8) k/uL Carbon Dioxide (22-30) mmol/L BUN (7-17) mg/dL Glucose (74-99) mg/dL POC Glucose (mg/dL) 141 H 153 H (75-99) mg/dL Assessment and Plan Plan: #1 Acute on chronic hypoxic and hypercapnic respiratory failure secondary to COPD exacerbation: Continue with BiPAP when necessary. Patient is on azithromycin. No evidence of pneumonia on chest x-ray. #2 hypertension controlled. #3 hyperlipidemia #4 osteoporosis #5 mildly elevated troponin secondary to hypoxemia and demand mismatch. patient doesn't have any chest pain EKG is not consistent with acute ST-T wave changes. #6) advanced COPD on home oxygen and steroid dependent. Plan: Patient will be continued on DuoNeb's and Symbicort as well as IV steroids. We will continue the BiPAP machine when necessary. Continue the current management. Continue DVT prophylaxis. Pulmonary is following this patient. Further recommendations based on the clinical course.
[2017-01-19] MEDS: ALPRAZolam 0.25 MG TAB PO PRN (01:22)
[2017-01-19] MEDS: IPRATROPIUM-ALBUTEROL 3 ML NEB INHALATION SCH ×6 (04:25→23:22)
[2017-01-19] MEDS: methylPREDNISolone SOD SUCCI 125 MG/2 ML VIAL IV SCH ×4 (05:46→23:15)
[2017-01-19 07:18] LABS: Glucose,Whole Blood 103 mg/dL (75-99)
[2017-01-19] MEDS: INSULIN LISPRO (humaLOG) 300 UNIT/3 ML VIAL SQ SCH ×4 (07:45→21:29)
[2017-01-19] MEDS: HEPARIN SODIUM,PORCINE 5,000 UNIT/ML 1 ML VIAL SQ SCH ×2 (07:46→19:42)
[2017-01-19] MEDS: AZITHROMYCIN 500 MG TAB PO SCH (07:50)
[2017-01-19] MEDS: POLYETHYLENE GLYCOL 3350 17 GM POWD.PACK PO SCH (07:50)
[2017-01-19] MEDS: LISINOPRIL 10 MG TAB PO SCH (07:50)
[2017-01-19] MEDS: PANTOPRAZOLE 40 MG TABLET PO SCH (07:50)
[2017-01-19] MEDS: THEOPHYLLINE 24 HOUR 300 MG CAP.ER.24H PO SCH (07:50)
[2017-01-19] MEDS: CHOLECALCIFEROL 1,000 UNIT TAB PO SCH (07:50)
[2017-01-19] MEDS: SYMBICORT 160-4.5 MCG INHALER INHALATION SCH ×2 (09:05→20:15)
[2017-01-19] MEDS: FUROSEMIDE 20 MG TAB PO SCH (11:09)
[2017-01-19 11:47] LABS: Glucose,Whole Blood 141 mg/dL (75-99)
--- NOTE | 2017-01-19 13:00 | P.PN ---
Subjective Principal diagnosis: Acute on chronic hypoxic and hypercapnic respiratory failure secondary to COPd exacerbation. 71-year-old female patient with advanced COPD and FEV1 of 33% of predicted, goal stage IV disease, maintained on a combination of Spiriva, Symbicort, and theophylline outpatient basis and addition to Combivent rescue inhaler on an as- needed basis. She comes in to the MRSA problem because of worsening shortness of breath. No chest pain. No angina. No pleurisy. No hemoptysis. Chest x- ray showing hyperinflation. No blood gases were done. Initially she was a selective overflow. After seeing her and I will regards to the ICU as the patient is in significant respiratory distress and she is quite anxious and she is using some excessive muscle breathing while being tachypneic. No fever. No chills. No chest pain. No swelling in lower extremities. No nausea. No vomiting. No change in mental status. ABGs are still pending. The patient was also placed on BiPAP. Patient was seen today on 01/14/2017, remains in the intensive care unit, presently on nasal cannula at 3 L/m, saturating quite well, does not seem to be in severe respiratory distress anymore. Patient is able to communicate, apparently she has some issues with that Perforomist, and I went ahead and discontinued Perforomist and Pulmicort and switched her to Symbicort. In the meantime she will remain on DuoNeb, she will remain on multiple bronchodilators as listed by Dr. Ventura, and she will remain on GI and DVT prophylaxis. Labs were reviewed she had basically normal metabolic profile. Normal CBC. Normal renal profile. Chest x-ray showed no evidence of acute process, she has chronic changes mostly. She has hyperinflation compatible with COPD and scattered senescent parenchymal changes. Over the last 24 hours, patient has been intermittently on BiPAP and it is mostly used as needed. Reevaluated today on 01/15/2017, patient remains in the intensive care unit, intermittently on nasal cannula and BiPAP alternating. Earlier this morning she was noted to be tachypneic, and bit tachycardic, hence I recommended starting the patient again on BiPAP. Patient is optimized on multiple bronchodilators, she is also on antibiotics and IV steroids. However considering her severe end-stage COPD, her overall prognostic picture does not seem to be very promising. CBC is relatively unremarkable. Electrolytes and renal profile are normal. The patient is seen again today 01/16/2017 in follow-up on the regular medical floor. She is awake and alert in no acute distress. She states her breathing is slightly better today as compared to yesterday. She did utilize the BiPAP last evening. She is currently sitting up at the bedside and maintaining good O2 saturations in the upper 90s on 2 L/m per nasal cannula. She is anxious to go home. She denies any productive cough at this time. She does have dyspnea on minimal exertion. The patient is seen again today 01/17/2017 in follow-up on the regular medical floor. She is currently resting fairly comfortably in bed. She does remain dyspneic with minimal conversation. She is breathing easier today as compared to yesterday however. She continues to maintain good O2 saturations in the mid 90s on 2 L/m nasal cannula. She is currently afebrile. Hemodynamically stable. No leukocytosis. She is continued on azithromycin, Symbicort, bronchodilators and IV Solu-Medrol. She has been slow to progress. The patient is seen again today 01/18/2017 in follow-up on the regular medical floor. She is currently resting fairly comfortably in bed. She is breathing a little easier today as compared to yesterday. She is less dyspneic on conversation as well. She states she's been utilizing the BiPAP on and off but only tolerates it for couple hours at a time. She is currently maintaining good O2 saturations in the mid 90s on 2 L/m per nasal cannula. No significant tachycardia. No tachypnea. She has been afebrile. No leukocytosis. Reevaluated today on 01/19/2017, patient continues to have shortness of breath at rest and with any activity. Not much improvement noted over the last few days, reviewed all her meds and the patient seems to be maximized on steroids and bronchodilators. She is also on antibiotics. Intermittently he has been using BiPAP. Presently on nasal cannula. Objective - Vital Signs Vital signs: Vital Signs Temp 97.1 F L 01/19/17 07:00 Pulse 81 01/19/17 07:00 Resp 20 01/19/17 07:00 BP 181/88 01/19/17 07:00 Pulse Ox 98 01/19/17 07:00 Intake & Output 01/18/17 01/19/17 01/19/17 18:59 06:59 18:59 Weight 56 kg Other: Voiding Method Toilet # Voids 3 2 - Exam Physical Exam: Revealed a 71-year-old in mild respiratory distress, presently on nasal cannula. HEENT:[Neck is supple.] [No neck masses.] [No thyromegaly.] [No JVD.] Chest: [Diminished breath sounds at the bases, no crackles, no rhonchi, some wheezing on forced expiratory maneuver noted] Cardiac Exam: [Normal S1 and S2, no S3 gallop, no murmur.] Abdomen: [Soft, nontender, no megaly, no rebound, no guarding, normal bowel sounds.] Extremities: [No clubbing, no edema, no cyanosis.] Neurological Exam: [No focal neurologic deficit.] - Labs CBC & Chem 7: 01/18/17 07:03 01/18/17 07:03 Labs: Abnormal Lab Results - Last 24 Hours (Table) 01/18/17 01/18/17 01/19/17 Range/Units 17:15 21:25 07:00 POC Glucose (mg/dL) 153 H 110 H 103 H (75-99) mg/dL 01/19/17 Range/Units 11:44 POC Glucose (mg/dL) 141 H (75-99) mg/dL Assessment and Plan Plan: 1 acute on chronic hypoxic and hypercapnic respiratory failure secondary to COPD exacerbation. 2 advanced COPD, oxygen and steroid dependent with previous hospital physician for COPD exacerbation. The baseline FEV1 is at 33% of predicted. Maintained on a combination of Spiriva, Symbicort, theophylline and 5 mg of prednisone a daily basis. 3 chronic hypoxic and hypercapnic respiratory failure 4 hypertension 5 hyperlipidemia 6 osteoporosis 7 nonspecific troponin leak Recommendation: Continue present treatment plan, continue bronchodilators, antibiotics, DVT and GI prophylaxis, not ready for any discharge planning at this point, prognosis remains very poor and guarded. Time with Patient: Less than 30
[2017-01-19 17:10] LABS: Glucose,Whole Blood 107 mg/dL (75-99)
[2017-01-19] MEDS: guaiFENesin 600 MG TABLET.ER PO PRN (20:48)
[2017-01-19 21:19] LABS: Glucose,Whole Blood 142 mg/dL (75-99)
--- NOTE | 2017-01-19 23:39 | P.PN ---
Subjective Principal diagnosis: Acute COPD exacerbation Patient is a pleasant 71-year-old female with GOLD stage IV COPD came in with complaints of shortness of breath started 2 days ago much worse today morning and patient was requiring BiPAP patient uses 2 L of of oxygen at home. Patient quit smoking years ago. Patient denied any patient was having cough unable to bring up anything patient chest x-ray did not show any pneumonic process. Patient denied any fevers, chills, nausea, vomiting, chest pain. On 01/14/2017 Patient is currently on BiPAP machine. Breathing status is much improved now. No fever no chills. No acute overnight issues. 01/15/2017 Patient is currently transferred to medical floor. Saturating well on nasal cannula. Patient feels anxious sometimes. No fever no chills. Patient is improving symptomatically. 01/16/2017 Patient is on nasal cannula. Patient feels very anxious to go home. Patient says that she still having trouble breath. No fever no chills. 01/17/2017 Patient currently saturating on a cannula. Did have to use BiPAP last night. Patient says that her breathing is getting better. Patient is still short of breath with conversation. No fever no chills. Able to sit on the bed with minimal short of breath. No acute overnight issues. No chest pain. 01/18/2017 Patient did use IPAP pressure last night. Currently saturating well on all cannula. Patient is improving clinically. Breathing is better today. No fever no chills. No acute overnight issues. Patient is continued to be on IV steroids. 01/19/2017 Patient is still having short of breath with minimal exertion. Continues to use BiPAP machine intermittently. No fever no chills. Not much improvement Objective - Vital Signs Vital signs: Vital Signs Temp 97.2 F L 01/19/17 15:00 Pulse 102 H 01/19/17 20:28 Resp 20 01/19/17 15:00 BP 158/94 01/19/17 15:00 Pulse Ox 91 L 01/19/17 15:00 Intake & Output 01/19/17 01/19/17 01/20/17 06:59 18:59 06:59 Intake Total 1200 Balance 1200 Intake: Oral 1200 Other: # Voids 2 3 # Bowel Movements 1 - Exam GENERAL: The patient is alert and oriented x3, not in any acute distress. Well developed, well nourished. HEENT: Pupils are round and equally reacting to light. EOMI. No scleral icterus. No conjunctival pallor. Normocephalic, atraumatic. No pharyngeal erythema. No thyromegaly. CARDIOVASCULAR: S1 and S2 present. No murmurs, rubs, or gallops. PULMONARY: Significantly limited air entry into bilateral lung kent R>L, very minimal wheezing was appreciated. ABDOMEN: Soft, nontender, nondistended, normoactive bowel sounds. No palpable organomegaly. MUSCULOSKELETAL: No joint swelling or deformity. EXTREMITIES: No cyanosis, clubbing, or pedal edema. NEUROLOGICAL: Gross neurological examination did not reveal any focal deficits. SKIN: No rashes. - Labs CBC & Chem 7: 01/18/17 07:03 01/18/17 07:03 Labs: Abnormal Lab Results - Last 24 Hours (Table) 01/18/17 01/19/17 01/19/17 Range/Units 21:25 07:00 11:44 POC Glucose (mg/dL) 110 H 103 H 141 H (75-99) mg/dL 01/19/17 01/19/17 Range/Units 17:07 21:09 POC Glucose (mg/dL) 107 H 142 H (75-99) mg/dL Assessment and Plan Plan: #1 Acute on chronic hypoxic and hypercapnic respiratory failure secondary to severe COPD exacerbation: Continue with BiPAP when necessary. Patient is on azithromycin. No evidence of pneumonia on chest x-ray. #2 advanced COPD and chronic hypoxic and hypercapnic respiratory failure. #2 hypertension controlled. #3 hyperlipidemia #4 osteoporosis #5 mildly elevated troponin secondary to hypoxemia and demand mismatch. patient doesn't have any chest pain EKG is not consistent with acute ST-T wave changes. #6) advanced COPD on home oxygen and steroid dependent. Plan: Patient will be continued on DuoNeb's and Symbicort as well as IV steroids. We will continue the BiPAP machine when necessary. Continue the current management. Continue DVT prophylaxis. Pulmonary is following this patient. Further recommendations based on the clinical course.
[2017-01-20] MEDS: IPRATROPIUM-ALBUTEROL 3 ML NEB INHALATION SCH ×5 (03:55→20:44)
[2017-01-20] MEDS: methylPREDNISolone SOD SUCCI 125 MG/2 ML VIAL IV SCH ×4 (05:52→23:36)
[2017-01-20 07:25] LABS: Glucose,Whole Blood 120 mg/dL (75-99)
[2017-01-20] MEDS: SYMBICORT 160-4.5 MCG INHALER INHALATION SCH ×2 (07:50→20:44)
[2017-01-20] MEDS: INSULIN LISPRO (humaLOG) 300 UNIT/3 ML VIAL SQ SCH ×4 (07:55→21:05)
[2017-01-20] MEDS: HEPARIN SODIUM,PORCINE 5,000 UNIT/ML 1 ML VIAL SQ SCH ×2 (08:30→21:06)
[2017-01-20] MEDS: CHOLECALCIFEROL 1,000 UNIT TAB PO SCH (08:31)
[2017-01-20] MEDS: PANTOPRAZOLE 40 MG TABLET PO SCH (08:31)
[2017-01-20] MEDS: LISINOPRIL 10 MG TAB PO SCH (08:31)
[2017-01-20] MEDS: AZITHROMYCIN 500 MG TAB PO SCH (08:31)
[2017-01-20] MEDS: POLYETHYLENE GLYCOL 3350 17 GM POWD.PACK PO SCH (08:31)
[2017-01-20] MEDS: FUROSEMIDE 20 MG TAB PO SCH (08:31)
[2017-01-20] MEDS: THEOPHYLLINE 24 HOUR 300 MG CAP.ER.24H PO SCH (08:31)
[2017-01-20] MEDS: guaiFENesin 600 MG TABLET.ER PO PRN (10:54)
--- NOTE | 2017-01-20 11:32 | P.PN ---
Subjective Principal diagnosis: Acute on chronic hypoxic and hypercapnic respiratory failure secondary to COPd exacerbation. 71-year-old female patient with advanced COPD and FEV1 of 33% of predicted, goal stage IV disease, maintained on a combination of Spiriva, Symbicort, and theophylline outpatient basis and addition to Combivent rescue inhaler on an as- needed basis. She comes in to the MRSA problem because of worsening shortness of breath. No chest pain. No angina. No pleurisy. No hemoptysis. Chest x- ray showing hyperinflation. No blood gases were done. Initially she was a selective overflow. After seeing her and I will regards to the ICU as the patient is in significant respiratory distress and she is quite anxious and she is using some excessive muscle breathing while being tachypneic. No fever. No chills. No chest pain. No swelling in lower extremities. No nausea. No vomiting. No change in mental status. ABGs are still pending. The patient was also placed on BiPAP. Patient was seen today on 01/14/2017, remains in the intensive care unit, presently on nasal cannula at 3 L/m, saturating quite well, does not seem to be in severe respiratory distress anymore. Patient is able to communicate, apparently she has some issues with that Perforomist, and I went ahead and discontinued Perforomist and Pulmicort and switched her to Symbicort. In the meantime she will remain on DuoNeb, she will remain on multiple bronchodilators as listed by Dr. Ventura, and she will remain on GI and DVT prophylaxis. Labs were reviewed she had basically normal metabolic profile. Normal CBC. Normal renal profile. Chest x-ray showed no evidence of acute process, she has chronic changes mostly. She has hyperinflation compatible with COPD and scattered senescent parenchymal changes. Over the last 24 hours, patient has been intermittently on BiPAP and it is mostly used as needed. Reevaluated today on 01/15/2017, patient remains in the intensive care unit, intermittently on nasal cannula and BiPAP alternating. Earlier this morning she was noted to be tachypneic, and bit tachycardic, hence I recommended starting the patient again on BiPAP. Patient is optimized on multiple bronchodilators, she is also on antibiotics and IV steroids. However considering her severe end-stage COPD, her overall prognostic picture does not seem to be very promising. CBC is relatively unremarkable. Electrolytes and renal profile are normal. The patient is seen again today 01/16/2017 in follow-up on the regular medical floor. She is awake and alert in no acute distress. She states her breathing is slightly better today as compared to yesterday. She did utilize the BiPAP last evening. She is currently sitting up at the bedside and maintaining good O2 saturations in the upper 90s on 2 L/m per nasal cannula. She is anxious to go home. She denies any productive cough at this time. She does have dyspnea on minimal exertion. The patient is seen again today 01/17/2017 in follow-up on the regular medical floor. She is currently resting fairly comfortably in bed. She does remain dyspneic with minimal conversation. She is breathing easier today as compared to yesterday however. She continues to maintain good O2 saturations in the mid 90s on 2 L/m nasal cannula. She is currently afebrile. Hemodynamically stable. No leukocytosis. She is continued on azithromycin, Symbicort, bronchodilators and IV Solu-Medrol. She has been slow to progress. The patient is seen again today 01/18/2017 in follow-up on the regular medical floor. She is currently resting fairly comfortably in bed. She is breathing a little easier today as compared to yesterday. She is less dyspneic on conversation as well. She states she's been utilizing the BiPAP on and off but only tolerates it for couple hours at a time. She is currently maintaining good O2 saturations in the mid 90s on 2 L/m per nasal cannula. No significant tachycardia. No tachypnea. She has been afebrile. No leukocytosis. Reevaluated today on 01/19/2017, patient continues to have shortness of breath at rest and with any activity. Not much improvement noted over the last few days, reviewed all her meds and the patient seems to be maximized on steroids and bronchodilators. She is also on antibiotics. Intermittently he has been using BiPAP. Presently on nasal cannula. Reevaluated today on 01/20/2017, patient is slightly better compared to yesterday. But she continues to cough and wheeze, less shortness of breath at rest. Patient is maximized on bronchodilators and antibiotics. She is intermittently on BiPAP. But presently on nasal cannula. Objective - Vital Signs Vital signs: Vital Signs Temp 98.0 F 01/20/17 07:00 Pulse 100 01/20/17 11:30 Resp 18 01/20/17 07:00 BP 162/86 01/20/17 07:00 Pulse Ox 96 01/20/17 07:00 Intake & Output 01/19/17 01/20/17 01/20/17 18:59 06:59 18:59 Intake Total 1200 Balance 1200 Intake: Oral 1200 Other: Voiding Method Toilet # Voids 3 1 # Bowel Movements 1 - Exam Physical Exam: Revealed a 71-year-old in mild respiratory distress, presently on nasal cannula. HEENT:[Neck is supple.] [No neck masses.] [No thyromegaly.] [No JVD.] Chest: [Diminished breath sounds at the bases, no crackles, no rhonchi, some wheezing on forced expiratory maneuver noted] Cardiac Exam: [Normal S1 and S2, no S3 gallop, no murmur.] Abdomen: [Soft, nontender, no megaly, no rebound, no guarding, normal bowel sounds.] Extremities: [No clubbing, no edema, no cyanosis.] Neurological Exam: [No focal neurologic deficit.] - Labs CBC & Chem 7: 01/18/17 07:03 01/18/17 07:03 Labs: Abnormal Lab Results - Last 24 Hours (Table) 01/19/17 01/19/17 01/19/17 Range/Units 11:44 17:07 21:09 POC Glucose (mg/dL) 141 H 107 H 142 H (75-99) mg/dL 01/20/17 Range/Units 07:04 POC Glucose (mg/dL) 120 H (75-99) mg/dL Assessment and Plan Plan: 1 acute on chronic hypoxic and hypercapnic respiratory failure secondary to COPD exacerbation. 2 advanced COPD, oxygen and steroid dependent with previous hospital physician for COPD exacerbation. The baseline FEV1 is at 33% of predicted. Maintained on a combination of Spiriva, Symbicort, theophylline and 5 mg of prednisone a daily basis. 3 chronic hypoxic and hypercapnic respiratory failure 4 hypertension 5 hyperlipidemia 6 osteoporosis 7 nonspecific troponin leak Recommendation: Continue present treatment plan, continue bronchodilators, antibiotics, DVT and GI prophylaxis, not ready for any discharge planning at this point, prognosis remains very poor and guarded. Time with Patient: Less than 30
[2017-01-20 11:36] LABS: Glucose,Whole Blood 213 mg/dL (75-99)
[2017-01-20] MEDS: NYSTATIN 100,000 UNIT/ML SUSP 500,000 UNIT/5 ML CUP PO SCH ×3 (12:34→21:05)
[2017-01-20 16:50] LABS: Glucose,Whole Blood 155 mg/dL (75-99)
[2017-01-20 20:57] LABS: Glucose,Whole Blood 143 mg/dL (75-99)
[2017-01-20] MEDS: ALPRAZolam 0.25 MG TAB PO PRN (23:36)
--- NOTE | 2017-01-21 01:02 | P.PN ---
Subjective Principal diagnosis: Acute COPD exacerbation Patient is a pleasant 71-year-old female with GOLD stage IV COPD came in with complaints of shortness of breath started 2 days ago much worse today morning and patient was requiring BiPAP patient uses 2 L of of oxygen at home. Patient quit smoking years ago. Patient denied any patient was having cough unable to bring up anything patient chest x-ray did not show any pneumonic process. Patient denied any fevers, chills, nausea, vomiting, chest pain. On 01/14/2017 Patient is currently on BiPAP machine. Breathing status is much improved now. No fever no chills. No acute overnight issues. 01/15/2017 Patient is currently transferred to medical floor. Saturating well on nasal cannula. Patient feels anxious sometimes. No fever no chills. Patient is improving symptomatically. 01/16/2017 Patient is on nasal cannula. Patient feels very anxious to go home. Patient says that she still having trouble breath. No fever no chills. 01/17/2017 Patient currently saturating on a cannula. Did have to use BiPAP last night. Patient says that her breathing is getting better. Patient is still short of breath with conversation. No fever no chills. Able to sit on the bed with minimal short of breath. No acute overnight issues. No chest pain. 01/18/2017 Patient did use IPAP pressure last night. Currently saturating well on all cannula. Patient is improving clinically. Breathing is better today. No fever no chills. No acute overnight issues. Patient is continued to be on IV steroids. 01/19/2017 Patient is still having short of breath with minimal exertion. Continues to use BiPAP machine intermittently. No fever no chills. Not much improvement 01/20/2017 Patient still requiring BiPAP very frequently. No acute otherwise overnight issues. Still having significant short of breath. Prognosis guarded Objective - Vital Signs Vital signs: Vital Signs Temp 97.4 F L 01/20/17 14:37 Pulse 102 H 01/20/17 20:59 Resp 20 01/20/17 14:37 BP 163/77 01/20/17 14:37 Pulse Ox 97 01/20/17 14:37 Intake & Output 01/20/17 01/20/17 01/21/17 06:59 18:59 06:59 Intake Total 1200 Balance 1200 Intake: Oral 1200 Other: Voiding Method Toilet # Voids 1 3 - Exam GENERAL: The patient is alert and oriented x3, not in any acute distress. Well developed, well nourished. HEENT: Pupils are round and equally reacting to light. EOMI. No scleral icterus. No conjunctival pallor. Normocephalic, atraumatic. No pharyngeal erythema. No thyromegaly. CARDIOVASCULAR: S1 and S2 present. No murmurs, rubs, or gallops. PULMONARY: Significantly limited air entry into bilateral lung kent R>L, very minimal wheezing was appreciated. ABDOMEN: Soft, nontender, nondistended, normoactive bowel sounds. No palpable organomegaly. MUSCULOSKELETAL: No joint swelling or deformity. EXTREMITIES: No cyanosis, clubbing, or pedal edema. NEUROLOGICAL: Gross neurological examination did not reveal any focal deficits. SKIN: No rashes. - Labs CBC & Chem 7: 01/18/17 07:03 01/18/17 07:03 Labs: Abnormal Lab Results - Last 24 Hours (Table) 01/20/17 01/20/17 01/20/17 Range/Units 07:04 11:34 16:47 POC Glucose (mg/dL) 120 H 213 H 155 H (75-99) mg/dL 01/20/17 Range/Units 20:37 POC Glucose (mg/dL) 143 H (75-99) mg/dL Assessment and Plan Plan: #1 Acute on chronic hypoxic and hypercapnic respiratory failure secondary to severe COPD exacerbation: Continue with BiPAP when necessary. Patient is on azithromycin. No evidence of pneumonia on chest x-ray. #2 advanced COPD and chronic hypoxic and hypercapnic respiratory failure. #2 hypertension controlled. #3 hyperlipidemia #4 osteoporosis #5 mildly elevated troponin secondary to hypoxemia and demand mismatch. patient doesn't have any chest pain EKG is not consistent with acute ST-T wave changes. #6) advanced COPD on home oxygen and steroid dependent. Plan: Patient will be continued on DuoNeb's and Symbicort as well as IV steroids. We will continue the BiPAP machine when necessary. Continue the current management. Continue DVT prophylaxis. Pulmonary is following this patient. Further recommendations based on the clinical course.
[2017-01-21] MEDS: IPRATROPIUM-ALBUTEROL 3 ML NEB INHALATION SCH ×6 (03:21→21:11)
[2017-01-21] MEDS: methylPREDNISolone SOD SUCCI 125 MG/2 ML VIAL IV SCH ×3 (06:21→17:19)
[2017-01-21 07:26] LABS: Glucose,Whole Blood 106 mg/dL (75-99)
[2017-01-21] MEDS: HEPARIN SODIUM,PORCINE 5,000 UNIT/ML 1 ML VIAL SQ SCH ×2 (07:42→21:07)
[2017-01-21] MEDS: POLYETHYLENE GLYCOL 3350 17 GM POWD.PACK PO SCH (07:42)
[2017-01-21] MEDS: PANTOPRAZOLE 40 MG TABLET PO SCH (07:42)
[2017-01-21] MEDS: INSULIN LISPRO (humaLOG) 300 UNIT/3 ML VIAL SQ SCH ×4 (07:42→21:07)
[2017-01-21] MEDS: THEOPHYLLINE 24 HOUR 300 MG CAP.ER.24H PO SCH (07:43)
[2017-01-21] MEDS: NYSTATIN 100,000 UNIT/ML SUSP 500,000 UNIT/5 ML CUP PO SCH ×4 (07:43→21:06)
[2017-01-21] MEDS: AZITHROMYCIN 500 MG TAB PO SCH (07:43)
[2017-01-21] MEDS: LISINOPRIL 10 MG TAB PO SCH (07:43)
[2017-01-21] MEDS: FUROSEMIDE 20 MG TAB PO SCH (07:43)
[2017-01-21] MEDS: CHOLECALCIFEROL 1,000 UNIT TAB PO SCH (07:43)
[2017-01-21 08:15] LABS: Basophils % (A) 0 %; CH 32.3; CHCM 31.7; Eosinophils % (A) 0 %; HDW 2.17; Luc # (Auto) 0.09; Luc % (Auto) 1; Lymphocytes # (A) 0.5 k/uL (1.0-4.8); Lymphocytes % (A) 4 %; MCH 31.1 pg (25.0-35.0); MCHC 30.4 g/dL (31.0-37.0); MCV 102.5 fL (80.0-100.0); Macrocytosis Slight; Mean Platelet Volume 8.7; Monocytes # (A) 0.8 k/uL (0-1.0); Monocytes % (A) 6 %; Neutrophils % (A) 89 %; RBC 4.49 m/uL (3.80-5.40); RDW 15.2 % (11.5-15.5); WBC 12.4 k/uL (3.8-10.6); WBC (Perox) 12.15
[2017-01-21 08:32] LABS: Blood Urea Nitrogen 22 mg/dL (7-17); Chloride 90 mmol/L (98-107); Glucose 110 mg/dL (74-99); Non-African American GFR(MDRD) >60 (>60 ml/min/1.73 sqM); Potassium 4.7 mmol/L (3.5-5.1); Sodium 138 mmol/L (137-145)
[2017-01-21 08:39] LABS: Anion Gap 6 mmol/L
[2017-01-21 08:41] LABS: Carbon Dioxide 42 mmol/L (22-30)
[2017-01-21] MEDS: guaiFENesin 600 MG TABLET.ER PO PRN (08:44)
[2017-01-21] MEDS: SYMBICORT 160-4.5 MCG INHALER INHALATION SCH ×2 (10:23→21:24)
[2017-01-21 12:27] LABS: Glucose,Whole Blood 131 mg/dL (75-99)
--- NOTE | 2017-01-21 12:49 | P.PN ---
Subjective Progress note dated 01/21/2017 This is a 71-year-old female who's been in the hospital for about 8 days now. The patient has a history of very severe COPD. She's feeling better each day. Still short of breath. Still with chest tightness wheezing and cough. The patient's bringing up occasional phlegm which is slightly yellow. She intermittently is on BiPAP. Getting bronchodilator steroids and antibiotics. She feels like she probably needs another day or 2 before she could be discharged. She has a history of advanced oxygen dependent COPD which is stage III/stage IV disease. In addition she has a history of hypercapnic respiratory failure hypertension hyperlipidemia and osteoporosis. Objective - Vital Signs Vital signs: Vital Signs Temp 97.6 F 01/21/17 07:00 Pulse 102 H 01/21/17 10:24 Resp 16 01/21/17 07:00 BP 165/90 01/21/17 07:00 Pulse Ox 98 01/21/17 07:00 Intake & Output 01/20/17 01/21/17 01/21/17 18:59 06:59 18:59 Intake Total 1200 800 Balance 1200 800 Intake: Oral 1200 800 Other: Voiding Method Toilet # Voids 3 1 - Exam No acute distress, oriented 3. She was actually sleeping when I first came into the room. There is no obvious outward signs of respiratory difficulty. HEENT examination is grossly unremarkable. Mucous membranes are moist. No oral lesions. Neck supple. Full range of motion. No adenopathy or thyromegaly. Neck veins are flat. Cardiovascular examination reveals regular rhythm rate. S1-S2 normal. No S3- S4 or murmur. Lungs reveal diffuse inspiratory and expiratory wheezes. Breath sounds are diminished. Slight prolongation. Breath sounds are diminished throughout. Abdomen soft bowel sounds are heard. No masses or tenderness. Extremities are intact. No cyanosis clubbing or edema. Skin without rash. A few areas of ecchymoses noted. Neurologic examination is nonfocal. - Labs CBC & Chem 7: 01/21/17 07:53 01/21/17 07:50 Labs: Abnormal Lab Results - Last 24 Hours (Table) 01/20/17 01/20/17 01/21/17 Range/Units 16:47 20:37 07:25 WBC (3.8-10.6) k/uL MCV (80.0-100.0) fL MCHC (31.0-37.0) g/dL Neutrophils # (1.3-7.7) k/uL Lymphocytes # (1.0-4.8) k/uL Chloride (98-107) mmol/L Carbon Dioxide (22-30) mmol/L BUN (7-17) mg/dL Creatinine (0.52-1.04) mg/dL Glucose (74-99) mg/dL POC Glucose (mg/dL) 155 H 143 H 106 H (75-99) mg/dL 01/21/17 01/21/17 01/21/17 Range/Units 07:50 07:53 12:19 WBC 12.4 H (3.8-10.6) k/uL MCV 102.5 H (80.0-100.0) fL MCHC 30.4 L (31.0-37.0) g/dL Neutrophils # 11.0 H (1.3-7.7) k/uL Lymphocytes # 0.5 L (1.0-4.8) k/uL Chloride 90 L (98-107) mmol/L Carbon Dioxide 42 H* (22-30) mmol/L BUN 22 H (7-17) mg/dL Creatinine 0.51 L (0.52-1.04) mg/dL Glucose 110 H (74-99) mg/dL POC Glucose (mg/dL) 131 H (75-99) mg/dL Assessment and Plan (1) Hypoxemia Status: Acute (2) Hypertension Status: Acute (3) Hyperlipidemia Status: Acute (4) Osteoporosis Status: Acute (5) Acute exacerbation of chronic obstructive airways disease Status: Acute (6) Adult respiratory distress syndrome Status: Acute (7) Acute respiratory failure Status: Acute (8) COPD exacerbation Status: Acute (9) Hyponatremia Status: Acute (10) Weakness Status: Acute Plan: Plan dated 01/21/2017 The patient's on appropriate medications including bronchodilators oxygen steroids and antibiotics. The patient likely be discharged in 24-48 hours if she continues to show improvement. We will recommend deep breathing coughing and clearing of secretions. No additional recommendations are made. We'll make sure she has follow-up with her primary equity holder post discharge. Time with Patient: Less than 30
[2017-01-21 17:07] LABS: Glucose,Whole Blood 118 mg/dL (75-99)
[2017-01-21 21:16] LABS: Glucose,Whole Blood 150 mg/dL (75-99)
[2017-01-21] MEDS: IPRATROPIUM 0.5 MG/2.5 ML NEBU INHALATION SCH (21:19)
[2017-01-21] MEDS: BUDESONIDE 1 MG/2 ML NEBU INHALATION SCH (21:19)
[2017-01-21] MEDS: ALBUTEROL NEB (CONC) 2.5 MG/0.5 ML INHALATION SCH (21:19)
[2017-01-21] MEDS: FORMOTEROL FUMARATE 20 MCG/2 ML NEBU INHALATION SCH (21:19)
[2017-01-21] MEDS: methylPREDNISolone SOD SUCCI 40 MG/ML 1 ML VIAL IV SCH (23:51)
[2017-01-21] MEDS: ALPRAZolam 0.25 MG TAB PO PRN (23:51)
[2017-01-22] MEDS: ALBUTEROL NEB (CONC) 2.5 MG/0.5 ML INHALATION SCH ×6 (00:16→20:25)
[2017-01-22] MEDS: IPRATROPIUM 0.5 MG/2.5 ML NEBU INHALATION SCH ×6 (00:17→20:25)
[2017-01-22] MEDS: ASPIRIN-ACET-CAFF 250-250-65MG 1 EACH TAB PO PRN (04:23)
[2017-01-22] MEDS: LISINOPRIL 10 MG TAB PO SCH (07:35)
[2017-01-22] MEDS: FUROSEMIDE 20 MG TAB PO SCH (07:35)
[2017-01-22] MEDS: CHOLECALCIFEROL 1,000 UNIT TAB PO SCH (07:35)
[2017-01-22] MEDS: THEOPHYLLINE 24 HOUR 300 MG CAP.ER.24H PO SCH (07:35)
[2017-01-22] MEDS: HEPARIN SODIUM,PORCINE 5,000 UNIT/ML 1 ML VIAL SQ SCH ×2 (07:35→21:06)
[2017-01-22] MEDS: PANTOPRAZOLE 40 MG TABLET PO SCH (07:35)
[2017-01-22] MEDS: NYSTATIN 100,000 UNIT/ML SUSP 500,000 UNIT/5 ML CUP PO SCH ×4 (07:36→21:06)
[2017-01-22] MEDS: INSULIN LISPRO (humaLOG) 300 UNIT/3 ML VIAL SQ SCH ×4 (07:36→21:05)
[2017-01-22] MEDS: POLYETHYLENE GLYCOL 3350 17 GM POWD.PACK PO SCH (07:36)
[2017-01-22] MEDS: methylPREDNISolone SOD SUCCI 40 MG/ML 1 ML VIAL IV SCH ×3 (07:36→23:39)
[2017-01-22 07:44] LABS: Glucose,Whole Blood 118 mg/dL (75-99)
[2017-01-22] MEDS: FORMOTEROL FUMARATE 20 MCG/2 ML NEBU INHALATION SCH ×2 (07:54→20:22)
[2017-01-22] MEDS: BUDESONIDE 1 MG/2 ML NEBU INHALATION SCH ×2 (07:54→20:22)
[2017-01-22 07:59] LABS: Blood Urea Nitrogen 20 mg/dL (7-17); Chloride 92 mmol/L (98-107); Glucose 110 mg/dL (74-99); Non-African American GFR(MDRD) >60 (>60 ml/min/1.73 sqM); Potassium 4.6 mmol/L (3.5-5.1); Sodium 137 mmol/L (137-145)
[2017-01-22 08:06] LABS: Anion Gap 5 mmol/L
[2017-01-22 08:18] LABS: Carbon Dioxide 40 mmol/L (22-30)
--- NOTE | 2017-01-22 12:06 | P.PN ---
Subjective Principal diagnosis: Acute on chronic hypoxic and hypercapnic respiratory failure secondary to COPD exacerbation. 71-year-old female patient with advanced COPD and FEV1 of 33% of predicted, goal stage IV disease, maintained on a combination of Spiriva, Symbicort, and theophylline outpatient basis and addition to Combivent rescue inhaler on an as- needed basis. She comes in to the emergency department because of worsening shortness of breath. No chest pain. No angina. No pleurisy. No hemoptysis. Chest x-ray showing hyperinflation. No blood gases were done. Initially she was a selective overflow. She was initially admitted to the ICU as the patient is in significant respiratory distress and she is quite anxious and she is using some excessive muscle breathing while being tachypneic. No fever. No chills. No chest pain. No swelling in lower extremities. No nausea. No vomiting. No change in mental status. The patient was also placed on BiPAP. The patient is seen again today 01/22/2017 in follow-up on the regular medical floor. She is awake and alert in no acute distress. She is lying quite flat in bed. She states she is breathing easier today as compared to yesterday. She is not wearing her BiPAP much. She is maintaining O2 saturations in the low 90s on 2 L/m per nasal cannula. She's been afebrile. Nearly back to her baseline. Objective - Vital Signs Vital signs: Vital Signs Temp 96.7 F L 01/22/17 07:00 Pulse 88 01/22/17 11:48 Resp 19 01/22/17 07:00 BP 159/87 01/22/17 07:00 Pulse Ox 94 L 01/22/17 07:00 Intake & Output 01/21/17 01/22/17 01/22/17 18:59 06:59 18:59 Intake Total 240 1350 Balance 240 1350 Intake: Oral 240 1350 Other: Voiding Method Toilet # Voids 2 2 3 # Bowel Movements 0 - Exam GENERAL EXAM: Alert, fairly comfortable in no apparent distress. HEAD: Normocephalic. EYES: Normal reaction of pupils, equal size. NOSE: Clear with pink turbinates. THROAT: No erythema or exudates. NECK: No masses, no JVD. CHEST: No chest wall deformity. LUNGS: Equal air entry with bilateral end expiratory wheeze. Diminished throughout. CVS: S1 and S2 normal with no audible murmurs, regular rhythm. ABDOMEN: No hepatosplenomegaly, normal bowel sounds, no guarding or rigidity. Extremities: There is areas of ecchymosis from prolonged and chronic steroid use. No significant edema. No clubbing, no cyanosis. Peripheral pulses are intact. - Labs CBC & Chem 7: 01/21/17 07:53 01/22/17 07:13 Labs: Abnormal Lab Results - Last 24 Hours (Table) 01/21/17 01/21/17 01/21/17 Range/Units 12:19 17:02 21:04 Chloride (98-107) mmol/L Carbon Dioxide (22-30) mmol/L BUN (7-17) mg/dL Glucose (74-99) mg/dL POC Glucose (mg/dL) 131 H 118 H 150 H (75-99) mg/dL 01/22/17 01/22/17 Range/Units 07:10 07:13 Chloride 92 L (98-107) mmol/L Carbon Dioxide 40 H* (22-30) mmol/L BUN 20 H (7-17) mg/dL Glucose 110 H (74-99) mg/dL POC Glucose (mg/dL) 118 H (75-99) mg/dL Assessment and Plan Plan: Impression: 1 acute on chronic hypoxic and hypercapnic respiratory failure secondary to COPD exacerbation. 2 advanced COPD, oxygen and steroid dependent with previous hospitalizations for COPD exacerbation. The baseline FEV1 is at 33% of predicted. Maintained on a combination of Spiriva, Symbicort, theophylline and 5 mg of prednisone a daily basis. 3 chronic hypoxic and hypercapnic respiratory failure 4 hypertension 5 hyperlipidemia 6 osteoporosis 7 nonspecific troponin leak Plan: The patient was seen and evaluated by Dr. Pendleton. We'll continue with her current COPD exacerbation treatment. Her overall prognosis does remain quite poor and guarded at this point. She is nearly back to her baseline and could be discharged home. She should be on a prednisone taper starting at 40 mg daily 4 days down to her maintenance dose of 5 mg daily. She should follow-up in our office in 1 week's time. She is encouraged to call sooner with any recurrence of symptoms or other questions or concerns.
[2017-01-22 12:09] LABS: Glucose,Whole Blood 182 mg/dL (75-99)
--- NOTE | 2017-01-22 12:43 | PN ---
DATE OF SERVICE: 01/21/17 PRESENTING COMPLAINT: Shortness of breath. INTERVAL HISTORY: This is a patient with advanced COPD on home oxygen, presented with acute exacerbation. Still quite a bit short of breath. Able to eat some food, tired. Short of breath. Review of systems done for constitutional, cardiovascular, GI, pulmonary, relevant findings as above. Current medications are reviewed that include DuoNeb, Xanax, Zithromax, Symbicort, Mucinex, IV Solu-Medrol, Protonix, theophylline. On examination, temperature 97.9, pulse 89. Respirations 20. Blood pressure 155/85. Pulse ox 93% on 2 L. General appearance sitting up on the edge of the bed, short of breath. Tired appearing. Eyes: Pupils equal. Conjunctivae normal. Neck: JVD not raised. Mass not palpable. Respiratory effort increased. Lungs diminished breath sounds. Prolonged expiration and wheezing. Cardiovascular: First and second sounds normal. Some lower extremity edema. Dermatological diffuse bruising. PSYCH: Alert and oriented times three. Mood and affect anxious appearing. Investigations: White count 12.4, hemoglobin 14. Potassium 4.7. Bicarb 42. ASSESSMENT: 1. Acute on chronic hypoxic and hypercapnic respiratory failure, underlying chronic obstructive pulmonary disease. 2. Acute severe chronic obstructive pulmonary disease, steroid dependent, slow to improve. 3. Essential hypertension. 4. Hyperlipidemia. 5. Medical asthenia. PLAN: Continue current medication and treatment plan. We will scale back a bit on the Solu-Medrol. We will add some nebulized Pulmicort. We will DC the Zithromax. The patient already received 7 days of the same. Prognosis guarded because of poor coordination, we will DC the patients Symbicort and switch to Perforomist twice a day and Pulmicort nebulizer 1 mg twice a day. We will also increase the dose of nebulized Albuterol to 5 mg. Cut back on Solu- Medrol to 40 q8 and DC the Zithromax as he has already received 7 days. Overall prognosis remains guarded. Will follow. [facility]
[2017-01-22 17:21] LABS: Glucose,Whole Blood 147 mg/dL (75-99)
--- NOTE | 2017-01-22 20:15 | P.PN ---
<Hailey Conner - Last Filed: 01/22/17 20:03> Progress Note - Text DATE OF SERVICE: 01/22/2017 PRESENTING COMPLAINT: Shortness of breath INTERVAL HISTORY: 71-year-old female who has advanced COPD on home oxygen presented with an acute exacerbation. 01/22/2017: Extremely short of breath, on BiPAP after walking to and from the bathroom, patient was extremely winded. Complains that she is on too much albuterol. Is able to eat some food about 50%, remains tired. No BM yet. REVIEW OF SYSTEMS: Done for constitutional ,cardiovascular, GI, pulmonary with relevant findings as above. CURRENT MEDICATIONS Albuterol, Xanax, Pulmicort, Perforomist, Lasix, Mucinex, heparin, Zestril, Solu -Medrol, MiraLAX, theophylline. PHYSICAL EXAM VITAL SIGNS: Temperature 96.7, pulse 97, respiratory rate 19, blood pressure 159/87, oxygen saturation 94% on 2 L GENERAL APPEARANCE: Lying in bed, not in distress. EYES: Pupils equal. Conjunctiva normal. NECK: JVD not raised. Mass not palpable. RESPIRATORY: Respiratory effort mildly labored . Lungs diminished to auscultation. CARDIOVASCULAR: First and second sounds normal. No edema. ABDOMEN: Soft. Liver and spleen not palpable. No tenderness. No mass palpable. PSYCHIATRY: Alert and oriented x3. Mood and affect normal. INTEGUMENT: Bilateral arms with multiple ecchymotic areas noted from steroid use. INVESTIGATIONS: Sodium 137, potassium 4.6, carbon dioxide 40, BUN 18, creatinine 0.56, Accu- Cheks noted. ASSESSMENT: -Acute on chronic hypoxic and hypercapnic respiratory failure, underlying chronic obstructive pulmonary disease. -Acute severe chronic obstructive pulmonary disease, steroid-dependent slow course upon. -Essential hypertension. -Hyponatremia. -Medical asthenia PLAN: We'll adjust albuterol breathing treatments to 3 mg and Solu-Medrol down to 40 every 12 hours. We'll continue intermittent BiPAP use. Overall prognosis remains guarded, will continue to monitor closely. Plan of care discussed with the patient and she is in agreement [employer] statement: Patient was seen and examined by nurse practitioner Hailey Conner and all elements of the case discussed with attending Dr. Lugo <Ramiro Lugo - Last Filed: 01/22/17 23:16> Progress Note - Text Date of service 01/22/2017 Admitting attending note: This patient was seen and examined by me. I discussed with the plan as practitioner Miss Conner Converted with severe COPD exacerbation. Feels a bit better today a bit anxious. Did eat some little bit. On examination: Respiratory rate increased, lungs decreased breath sounds, some improvement in wheezing Investigations: Labs noted Assessment and plan: Acute severe COPD exacerbation steroid dependence slow to respond, acute hypoxic respiratory failure on chronic hypoxic and hypercapnic respiratory failure. [place] better and albuterol 2.5 mg . Continue other medication treatment plan. Prognosis guarded. Using BiPAP intermittently
[2017-01-22 20:48] LABS: Glucose,Whole Blood 159 mg/dL (75-99)
[2017-01-22] MEDS: ALPRAZolam 0.25 MG TAB PO PRN (23:39)
[2017-01-23] MEDS: IPRATROPIUM-ALBUTEROL 3 ML NEB INHALATION SCH ×6 (00:28→20:41)
[2017-01-23] MEDS: ASPIRIN-ACET-CAFF 250-250-65MG 1 EACH TAB PO PRN ×2 (03:04→09:08)
[2017-01-23 07:39] LABS: Glucose,Whole Blood 109 mg/dL (75-99)
[2017-01-23] MEDS: INSULIN LISPRO (humaLOG) 300 UNIT/3 ML VIAL SQ SCH ×4 (08:23→21:31)
[2017-01-23] MEDS: CHOLECALCIFEROL 1,000 UNIT TAB PO SCH (08:28)
[2017-01-23] MEDS: NYSTATIN 100,000 UNIT/ML SUSP 500,000 UNIT/5 ML CUP PO SCH ×4 (08:28→21:34)
[2017-01-23] MEDS: LISINOPRIL 10 MG TAB PO SCH (08:28)
[2017-01-23] MEDS: methylPREDNISolone SOD SUCCI 40 MG/ML 1 ML VIAL IV SCH (08:28)
[2017-01-23] MEDS: THEOPHYLLINE 24 HOUR 300 MG CAP.ER.24H PO SCH (08:28)
[2017-01-23] MEDS: PANTOPRAZOLE 40 MG TABLET PO SCH ×2 (08:28→08:29)
[2017-01-23] MEDS: HEPARIN SODIUM,PORCINE 5,000 UNIT/ML 1 ML VIAL SQ SCH ×2 (08:28→21:31)
[2017-01-23] MEDS: POLYETHYLENE GLYCOL 3350 17 GM POWD.PACK PO SCH (08:29)
[2017-01-23] MEDS: FORMOTEROL FUMARATE 20 MCG/2 ML NEBU INHALATION SCH ×2 (09:33→09:53)
[2017-01-23] MEDS: BUDESONIDE 1 MG/2 ML NEBU INHALATION SCH (09:33)
[2017-01-23 10:03] LABS: Blood Urea Nitrogen 23 mg/dL (7-17); Calcium 9.3 mg/dL (8.4-10.2); Chloride 92 mmol/L (98-107); Glucose 94 mg/dL (74-99); Non-African American GFR(MDRD) >60 (>60 ml/min/1.73 sqM); Potassium 5.7 mmol/L (3.5-5.1); Sodium 139 mmol/L (137-145)
[2017-01-23 10:10] LABS: Anion Gap 6 mmol/L
[2017-01-23 10:27] LABS: Carbon Dioxide 41 mmol/L (22-30)
[2017-01-23 11:52] LABS: Glucose,Whole Blood 155 mg/dL (75-99)
--- NOTE | 2017-01-23 13:43 | P.PN ---
Subjective Principal diagnosis: Acute on chronic hypoxic and hypercapnic respiratory failure secondary to COPD exacerbation. 71-year-old female patient with advanced COPD and FEV1 of 33% of predicted, goal stage IV disease, maintained on a combination of Spiriva, Symbicort, and theophylline outpatient basis and addition to Combivent rescue inhaler on an as- needed basis. She comes in to the emergency department because of worsening shortness of breath. No chest pain. No angina. No pleurisy. No hemoptysis. Chest x-ray showing hyperinflation. No blood gases were done. Initially she was a selective overflow. She was initially admitted to the ICU as the patient is in significant respiratory distress and she is quite anxious and she is using some excessive muscle breathing while being tachypneic. No fever. No chills. No chest pain. No swelling in lower extremities. No nausea. No vomiting. No change in mental status. The patient was also placed on BiPAP. The patient is seen again today 01/22/2017 in follow-up on the regular medical floor. She is awake and alert in no acute distress. She is lying quite flat in bed. She states she is breathing easier today as compared to yesterday. She is not wearing her BiPAP much. She is maintaining O2 saturations in the low 90s on 2 L/m per nasal cannula. She's been afebrile. Nearly back to her baseline. The patient is seen again today 01/23/2017 in follow-up on the regular medical floor. She is awake and alert in no acute distress. She is breathing better today as compared to yesterday. She is back to her baseline. She is maintaining good O2 saturations in the mid 90s on 2 L/m per nasal cannula which is her home schedule. She's been afebrile. Objective - Vital Signs Vital signs: Vital Signs Temp 97.5 F L 01/23/17 07:00 Pulse 96 01/23/17 09:50 Resp 20 01/23/17 07:00 BP 157/82 01/23/17 07:00 Pulse Ox 95 01/23/17 07:00 Intake & Output 01/22/17 01/23/17 01/23/17 18:59 06:59 18:59 Intake Total 550 Balance 550 Intake: Oral 550 Other: Voiding Method Toilet # Voids 3 1 1 - Exam GENERAL EXAM: Alert, fairly comfortable in no apparent distress. HEAD: Normocephalic. EYES: Normal reaction of pupils, equal size. NOSE: Clear with pink turbinates. THROAT: No erythema or exudates. NECK: No masses, no JVD. CHEST: No chest wall deformity. LUNGS: Equal air entry with bilateral end expiratory wheeze. Diminished throughout. CVS: S1 and S2 normal with no audible murmurs, regular rhythm. ABDOMEN: No hepatosplenomegaly, normal bowel sounds, no guarding or rigidity. Extremities: There is areas of ecchymosis from prolonged and chronic steroid use. No significant edema. No clubbing, no cyanosis. Peripheral pulses are intact. - Labs CBC & Chem 7: 01/21/17 07:53 01/23/17 08:23 Labs: Abnormal Lab Results - Last 24 Hours (Table) 01/22/17 01/22/17 01/23/17 Range/Units 17:19 20:46 07:12 Potassium (3.5-5.1) mmol/L Chloride (98-107) mmol/L Carbon Dioxide (22-30) mmol/L BUN (7-17) mg/dL Creatinine (0.52-1.04) mg/dL POC Glucose (mg/dL) 147 H 159 H 109 H (75-99) mg/dL 01/23/17 01/23/17 Range/Units 08:23 11:49 Potassium 5.7 H (3.5-5.1) mmol/L Chloride 92 L (98-107) mmol/L Carbon Dioxide 41 H* (22-30) mmol/L BUN 23 H (7-17) mg/dL Creatinine 0.50 L (0.52-1.04) mg/dL POC Glucose (mg/dL) 155 H (75-99) mg/dL Assessment and Plan Plan: Impression: 1 acute on chronic hypoxic and hypercapnic respiratory failure secondary to COPD exacerbation. 2 advanced COPD, oxygen and steroid dependent with previous hospitalizations for COPD exacerbation. The baseline FEV1 is at 33% of predicted. Maintained on a combination of Spiriva, Symbicort, theophylline and 5 mg of prednisone a daily basis. 3 chronic hypoxic and hypercapnic respiratory failure 4 hypertension 5 hyperlipidemia 6 osteoporosis 7 nonspecific troponin leak Plan: The patient was seen and evaluated by Dr. Pendleton. She is cleared for discharge from the pulmonary standpoint. Her Pulmicort and Perforomist were converted back to Symbicort. She was started on a prednisone taper beginning at 40 mg 4 days down to her daily dose of 5mg. She should follow-up in our office in 1-2 weeks' time. She is encouraged to call sooner with any recurrence of symptoms or other questions or concerns.
[2017-01-23 16:55] LABS: Glucose,Whole Blood 105 mg/dL (75-99)
--- NOTE | 2017-01-23 18:22 | P.PN ---
<Hailey Conner - Last Filed: 01/23/17 17:54> Progress Note - Text DATE OF SERVICE: 01/23/2017 PRESENTING COMPLAINT: Shortness of breath INTERVAL HISTORY: 71-year-old female who has advanced COPD on home oxygen presented with an acute exacerbation. 01/23/2017: Patient seen in follow-up, no acute events overnight. Extremely short of breath with minimal exertion, patient up in the bathroom, very winded. Medications adjusted. Tolerating her diet, able to eat about 50%, remains tired , winded with minimal exertion Last BM 01/23/2017. 01/22/2017: Extremely short of breath, on BiPAP after walking to and from the bathroom, patient was extremely winded. Complains that she is on too much albuterol. Is able to eat some food about 50%, remains tired. No BM yet. REVIEW OF SYSTEMS: Done for constitutional ,cardiovascular, GI, pulmonary with relevant findings as above. CURRENT MEDICATIONS Albuterol, Xanax, Pulmicort, Perforomist, Lasix, Mucinex, heparin, Zestril, Solu -Medrol, MiraLAX, theophylline. PHYSICAL EXAM VITAL SIGNS: Temperature 97.5, pulse 80, respiratory rate 20, blood pressure 157/82, oxygen saturation 95% on 2 L. GENERAL APPEARANCE: Lying in bed, not in distress. EYES: Pupils equal. Conjunctiva normal. NECK: JVD not raised. Mass not palpable. RESPIRATORY: Respiratory effort mildly labored . Lungs diminished to auscultation. CARDIOVASCULAR: First and second sounds normal. No edema. ABDOMEN: Soft. Liver and spleen not palpable. No tenderness. No mass palpable. PSYCHIATRY: Alert and oriented x3. Mood and affect normal. INTEGUMENT: Bilateral arms with multiple ecchymotic areas noted from steroid use. INVESTIGATIONS: Sodium 139, potassium 5.7, Accu-Cheks noted. ASSESSMENT: -Acute severe COPD exacerbation steroid-dependent slow to respond. -Acute on chronic hypoxic and hypercapnic respiratory failure, underlying chronic obstructive pulmonary disease. -Acute severe chronic obstructive pulmonary disease, steroid-dependent slow to respond. -Essential hypertension. -Hyperkalemia, likely hypoosmolar -Hyponatremia, resolved -Medical asthenia PLAN: Continue and taper steroids, breathing treatments continue BiPAP use intermittently as needed, will redraw potassium level for possible Kayexalate therapy to reduce potassium level. Plan of care discussed and sent with patient she is in agreement. We'll continue to follow. ONLINE FACILITATOR statement: Patient was seen and examined by nurse practitioner Hailey Conner and all elements of the case discussed with attending Dr. Lugo <Ramiro Lugo - Last Filed: 01/23/17 21:35> Progress Note - Text Attending note. Date of service-01/23/2017 This patient was seen and examined by me . I reviewed the note of my nurse practitioner, Ms. Conner. Discussed with her, additional findings as below. Patient and states severe COPD exacerbation getting easily short winded. Short of breath at rest On examination: Lungs-decreased breath sounds prolonged expiration, psych-anxious appearing Investigations: Bicarb 31 potassium was 5.7 and repeat 4.8 Assessment and plan: Advanced end-stage COPD steroid-dependent slow to respond/hyperkalemia improved. Prognosis is guarded. Continue current medication treatment plan will watch her today
[2017-01-23] MEDS ORDERED: MD COMMUNICATION TO PHARMACY 1 EACH MISC PO PRN (18:43)
[2017-01-23] MEDS: SYMBICORT 160-4.5 MCG INHALER INHALATION SCH (20:40)
[2017-01-23 21:19] LABS: Glucose,Whole Blood 107 mg/dL (75-99)
[2017-01-23] MEDS: LACTULOSE 20 GM/30 ML CUP PO SCH (21:32)
[2017-01-23] MEDS: COMBIVENT RESPIMAT INHALATION SCH (21:41)
[2017-01-24] MEDS: IPRATROPIUM-ALBUTEROL 3 ML NEB INHALATION SCH ×6 (01:54→19:15)
[2017-01-24] MEDS: SYMBICORT 160-4.5 MCG INHALER INHALATION SCH ×2 (07:12→19:15)
[2017-01-24] MEDS: COMBIVENT RESPIMAT INHALATION SCH ×5 (07:14→19:15)
[2017-01-24 07:23] LABS: Glucose,Whole Blood 86 mg/dL (75-99)
[2017-01-24 08:28] LABS: Anion Gap 3 mmol/L; Blood Urea Nitrogen 20 mg/dL (7-17); Calcium 8.8 mg/dL (8.4-10.2); Carbon Dioxide 39 mmol/L (22-30); Chloride 93 mmol/L (98-107); Glucose 74 mg/dL (74-99); Non-African American GFR(MDRD) >60 (>60 ml/min/1.73 sqM); Potassium 4.8 mmol/L (3.5-5.1); Sodium 135 mmol/L (137-145)
[2017-01-24] MEDS: INSULIN LISPRO (humaLOG) 300 UNIT/3 ML VIAL SQ SCH ×5 (08:44→20:51)
[2017-01-24] MEDS: predniSONE 20 MG TAB PO SCH (08:45)
[2017-01-24] MEDS: HEPARIN SODIUM,PORCINE 5,000 UNIT/ML 1 ML VIAL SQ SCH ×2 (08:46→20:50)
[2017-01-24] MEDS: PANTOPRAZOLE 40 MG TABLET PO SCH ×2 (08:46→08:49)
[2017-01-24] MEDS: NYSTATIN 100,000 UNIT/ML SUSP 500,000 UNIT/5 ML CUP PO SCH ×4 (08:46→20:51)
[2017-01-24] MEDS: LISINOPRIL 10 MG TAB PO SCH (08:46)
[2017-01-24] MEDS: THEOPHYLLINE 24 HOUR 300 MG CAP.ER.24H PO SCH (08:46)
[2017-01-24] MEDS: CHOLECALCIFEROL 1,000 UNIT TAB PO SCH (08:46)
[2017-01-24] MEDS: LACTULOSE 20 GM/30 ML CUP PO SCH ×2 (08:47→20:51)
[2017-01-24] MEDS: POLYETHYLENE GLYCOL 3350 17 GM POWD.PACK PO SCH (08:47)
[2017-01-24 12:01] LABS: Glucose,Whole Blood 180 mg/dL (75-99)
--- NOTE | 2017-01-24 13:05 | P.PN ---
Subjective Principal diagnosis: Acute on chronic hypoxic and hypercapnic respiratory failure secondary to COPD exacerbation. 71-year-old female patient with advanced COPD and FEV1 of 33% of predicted, goal stage IV disease, maintained on a combination of Spiriva, Symbicort, and theophylline outpatient basis and addition to Combivent rescue inhaler on an as- needed basis. She comes in to the emergency department because of worsening shortness of breath. No chest pain. No angina. No pleurisy. No hemoptysis. Chest x-ray showing hyperinflation. No blood gases were done. Initially she was a selective overflow. She was initially admitted to the ICU as the patient is in significant respiratory distress and she is quite anxious and she is using some excessive muscle breathing while being tachypneic. No fever. No chills. No chest pain. No swelling in lower extremities. No nausea. No vomiting. No change in mental status. The patient was also placed on BiPAP. The patient is seen again today 01/22/2017 in follow-up on the regular medical floor. She is awake and alert in no acute distress. She is lying quite flat in bed. She states she is breathing easier today as compared to yesterday. She is not wearing her BiPAP much. She is maintaining O2 saturations in the low 90s on 2 L/m per nasal cannula. She's been afebrile. Nearly back to her baseline. The patient is seen again today 01/23/2017 in follow-up on the regular medical floor. She is awake and alert in no acute distress. She is breathing better today as compared to yesterday. She is back to her baseline. She is maintaining good O2 saturations in the mid 90s on 2 L/m per nasal cannula which is her home schedule. She's been afebrile. The patient is seen again today 01/24/2017 in follow-up on the regular more medical floor. She is improved. She is nearly back to her baseline. She denies any worsening shortness of breath, cough or congestion. She is maintaining good O2 saturations in the high 90s on 2 L/m per nasal cannula. She 's been afebrile. Hemodynamically stable. Objective - Vital Signs Vital signs: Vital Signs Temp 97.2 F L 01/24/17 07:00 Pulse 79 01/24/17 07:00 Resp 18 01/24/17 07:00 BP 147/86 01/24/17 07:00 Pulse Ox 98 01/24/17 07:17 Intake & Output 01/23/17 01/24/17 01/24/17 18:59 06:59 18:59 Other: # Voids 2 3 1 - Exam GENERAL EXAM: Alert, fairly comfortable in no apparent distress. HEAD: Normocephalic. EYES: Normal reaction of pupils, equal size. NOSE: Clear with pink turbinates. THROAT: No erythema or exudates. NECK: No masses, no JVD. CHEST: No chest wall deformity. LUNGS: Equal air entry with bilateral end expiratory wheeze. Diminished throughout. CVS: S1 and S2 normal with no audible murmurs, regular rhythm. ABDOMEN: No hepatosplenomegaly, normal bowel sounds, no guarding or rigidity. Extremities: There is areas of ecchymosis from prolonged and chronic steroid use. No significant edema. No clubbing, no cyanosis. Peripheral pulses are intact. - Labs CBC & Chem 7: 01/21/17 07:53 01/24/17 07:16 Labs: Abnormal Lab Results - Last 24 Hours (Table) 01/23/17 01/23/17 01/24/17 Range/Units 16:49 21:14 07:16 Sodium 135 L (137-145) mmol/L Chloride 93 L (98-107) mmol/L Carbon Dioxide 39 H (22-30) mmol/L BUN 20 H (7-17) mg/dL Creatinine 0.51 L (0.52-1.04) mg/dL POC Glucose (mg/dL) 105 H 107 H (75-99) mg/dL 01/24/17 Range/Units 11:59 Sodium (137-145) mmol/L Chloride (98-107) mmol/L Carbon Dioxide (22-30) mmol/L BUN (7-17) mg/dL Creatinine (0.52-1.04) mg/dL POC Glucose (mg/dL) 180 H (75-99) mg/dL Assessment and Plan Plan: Impression: 1 acute on chronic hypoxic and hypercapnic respiratory failure secondary to COPD exacerbation. 2 advanced COPD, oxygen and steroid dependent with previous hospitalizations for COPD exacerbation. The baseline FEV1 is at 33% of predicted. Maintained on a combination of Spiriva, Symbicort, theophylline and 5 mg of prednisone on a daily basis. 3 chronic hypoxic and hypercapnic respiratory failure 4 hypertension 5 hyperlipidemia 6 osteoporosis 7 nonspecific troponin leak Plan: The patient was seen and evaluated by Dr. Pendleton. She is cleared for discharge from the pulmonary standpoint. She will continue her Symbicort, Combivent. She was started on a prednisone taper beginning at 40 mg 4 days down to her daily dose of 5mg. She should follow-up in our office in 1-2 weeks' time. She is encouraged to call sooner with any recurrence of symptoms or other questions or concerns.
[2017-01-24] MEDS: ALPRAZolam 0.25 MG TAB PO PRN (13:12)
--- NOTE | 2017-01-24 15:32 | P.PN ---
<Hailey Conner - Last Filed: 01/25/17 12:18> Progress Note - Text DATE OF SERVICE: 01/24/2017 PRESENTING COMPLAINT: Shortness of breath INTERVAL HISTORY: 71-year-old female who has advanced COPD on home oxygen presented with an acute exacerbation. 01/24/2017: Patient seen in follow-up, breathing better today remains short of breath on minimal exertion however able to ambulate within the room without needing to be on the BiPAP. Medications adjusted, tolerating her diet eating about 50%, appears tired and anxious, last BM 01/23/2017. 01/23/2017: Patient seen in follow-up, no acute events overnight. Extremely short of breath with minimal exertion, patient up in the bathroom, very winded. Medications adjusted. Tolerating her diet, able to eat about 50%, remains tired , winded with minimal exertion Last BM 01/23/2017. 01/22/2017: Extremely short of breath, on BiPAP after walking to and from the bathroom, patient was extremely winded. Complains that she is on too much albuterol. Is able to eat some food about 50%, remains tired. No BM yet. REVIEW OF SYSTEMS: Done for constitutional ,cardiovascular, GI, pulmonary with relevant findings as above. CURRENT MEDICATIONS Albuterol, Xanax, Pulmicort, Perforomist, Lasix, Mucinex, heparin, Zestril, Solu -Medrol, MiraLAX, theophylline. PHYSICAL EXAM VITAL SIGNS: Temperature 97.5, pulse 80, respiratory rate 20, blood pressure 157/82, oxygen saturation 95% on 2 L. GENERAL APPEARANCE: Lying in bed, anxious. EYES: Pupils equal. Conjunctiva normal. NECK: JVD not raised. Mass not palpable. RESPIRATORY: Respiratory effort mildly labored . Lungs diminished to auscultation. CARDIOVASCULAR: First and second sounds normal. No edema. ABDOMEN: Soft. Liver and spleen not palpable. No tenderness. No mass palpable. PSYCHIATRY: Alert and oriented x3. Mood and affect anxious appearing INTEGUMENT: Bilateral arms with multiple ecchymotic areas noted from steroid use. INVESTIGATIONS: Sodium 135 chloride 93, BUN 20, creatinine 0.51. Accu-Cheks noted ASSESSMENT: -Acute severe COPD exacerbation in a steroid-dependent ex-smoker slow to respond. -Acute on chronic hypoxic and hypercapnic respiratory failure, underlying chronic obstructive pulmonary disease. -Advanced end-stage COPD steroid dependent, slow to respond -Essential hypertension. -Hyperkalemia, likely hypoosmolar, improved -Hyponatremia, resolved -Medical asthenia PLAN: Continue and taper steroids, breathing treatments continue BiPAP use intermittently as needed, discharge planning for tomorrow based on patient condition. Plan of care discussed and sent with patient she is in agreement. We'll continue to follow. BRANCH CHIEF statement: Patient was seen and examined by nurse practitioner Hailey Conner and all elements of the case discussed with attending Dr. Lugo <Ramiro Lugo - Last Filed: 01/25/17 16:50> Progress Note - Text Attending note. Date of service-01/24/2017 This patient was seen and examined by me . Discussed the patient with my nurse practitioner Ms. Conner. Patient advanced end-stage COPD. Tired. Tolerating a diet. Request to stay 1 more day. Cleared by pulmonary to go home. On examination: Laying in bed, tired appearing. Lungs decreased breath sounds, decreased wheezing Investigations: Potassium 4.8, BNP 20 Assessment and plan: Acute exacerbation of end-stage COPD steroid dependent with improvement. Oral prognosis guarded. We'll discharge patient home tomorrow. Care discussed with the patient. Patient on oral steroids.
[2017-01-24 17:03] LABS: Glucose,Whole Blood 126 mg/dL (75-99)
[2017-01-24 20:42] LABS: Glucose,Whole Blood 114 mg/dL (75-99)
[2017-01-24] MEDS: guaiFENesin 600 MG TABLET.ER PO PRN (21:19)
[2017-01-25] MEDS: IPRATROPIUM-ALBUTEROL 3 ML NEB INHALATION SCH ×4 (00:12→11:33)
[2017-01-25] MEDS: COMBIVENT RESPIMAT INHALATION SCH ×3 (04:26→11:33)
[2017-01-25] MEDS: SYMBICORT 160-4.5 MCG INHALER INHALATION SCH (07:43)
[2017-01-25 07:47] VITALS: BP 126/69; PULSE 81; RESP 18; TEMP 97
[2017-01-25] MEDS: POLYETHYLENE GLYCOL 3350 17 GM POWD.PACK PO SCH (08:28)
[2017-01-25] MEDS: THEOPHYLLINE 24 HOUR 300 MG CAP.ER.24H PO SCH (08:30)
[2017-01-25] MEDS: predniSONE 20 MG TAB PO SCH (08:30)
[2017-01-25] MEDS: PANTOPRAZOLE 40 MG TABLET PO SCH (08:30)
[2017-01-25] MEDS: HEPARIN SODIUM,PORCINE 5,000 UNIT/ML 1 ML VIAL SQ SCH (08:30)
[2017-01-25] MEDS: CHOLECALCIFEROL 1,000 UNIT TAB PO SCH (08:30)
[2017-01-25] MEDS: LACTULOSE 20 GM/30 ML CUP PO SCH (08:30)
[2017-01-25] MEDS: NYSTATIN 100,000 UNIT/ML SUSP 500,000 UNIT/5 ML CUP PO SCH (08:30)
[2017-01-25] MEDS: LISINOPRIL 10 MG TAB PO SCH (08:33)
[2017-01-25 09:25] LABS: Anion Gap 4 mmol/L; Blood Urea Nitrogen 19 mg/dL (7-17); Calcium 8.8 mg/dL (8.4-10.2); Carbon Dioxide 39 mmol/L (22-30); Chloride 92 mmol/L (98-107); Glucose 74 mg/dL (74-99); Non-African American GFR(MDRD) >60 (>60 ml/min/1.73 sqM); Potassium 4.8 mmol/L (3.5-5.1); Sodium 135 mmol/L (137-145)
[2017-01-25] MEDS: ALPRAZolam 0.25 MG TAB PO PRN (11:37)
--- NOTE | 2017-01-25 11:46 | P.PN ---
Subjective Progress note dated 01/21/2017 This is a 71-year-old female who's been in the hospital for about 8 days now. The patient has a history of very severe COPD. She's feeling better each day. Still short of breath. Still with chest tightness wheezing and cough. The patient's bringing up occasional phlegm which is slightly yellow. She intermittently is on BiPAP. Getting bronchodilator steroids and antibiotics. She feels like she probably needs another day or 2 before she could be discharged. She has a history of advanced oxygen dependent COPD which is stage III/stage IV disease. In addition she has a history of hypercapnic respiratory failure hypertension hyperlipidemia and osteoporosis. Progress note dated 01/25/2017 71-year-old female with history of end-stage COPD. She's been in the hospital for more than 10 days. I think she might be discharged home today. She came with a COPD exacerbation [place] by purulent tracheobronchitis. She had chest tightness wheezing cough shortness of breath phlegm production. Feeling a bit better. The patient has a history of hypercapnic respiratory failure, chronic hypoxemia, hypertension, hyperlipidemia and osteoporosis. Likely also suffers some cor pulmonale and pulmonary hypertension. Objective - Vital Signs Vital signs: Vital Signs Temp 97.0 F L 01/25/17 07:00 Pulse 81 01/25/17 07:00 Resp 18 01/25/17 07:00 BP 126/69 01/25/17 07:00 Pulse Ox 98 01/25/17 07:00 Intake & Output 01/24/17 01/25/17 01/25/17 18:59 06:59 18:59 Weight 56 kg Other: # Voids 3 2 - Exam No acute distress, oriented 3. She was actually sleeping when I first came into the room. There is no obvious outward signs of respiratory difficulty. HEENT examination is grossly unremarkable. Mucous membranes are moist. No oral lesions. Neck supple. Full range of motion. No adenopathy or thyromegaly. Neck veins are flat. Cardiovascular examination reveals regular rhythm rate. S1-S2 normal. No S3- S4 or murmur. Lungs reveal diffuse inspiratory and expiratory wheezes. Breath sounds are diminished. Slight prolongation. Breath sounds are diminished throughout. Abdomen soft bowel sounds are heard. No masses or tenderness. Extremities are intact. No cyanosis clubbing or edema. Skin without rash. A few areas of ecchymoses noted. Neurologic examination is nonfocal. - Labs CBC & Chem 7: 01/21/17 07:53 01/25/17 08:13 Labs: Abnormal Lab Results - Last 24 Hours (Table) 01/24/17 01/24/17 01/24/17 Range/Units 11:59 16:49 20:40 Sodium (137-145) mmol/L Chloride (98-107) mmol/L Carbon Dioxide (22-30) mmol/L BUN (7-17) mg/dL Creatinine (0.52-1.04) mg/dL POC Glucose (mg/dL) 180 H 126 H 114 H (75-99) mg/dL 01/25/17 Range/Units 08:13 Sodium 135 L (137-145) mmol/L Chloride 92 L (98-107) mmol/L Carbon Dioxide 39 H (22-30) mmol/L BUN 19 H (7-17) mg/dL Creatinine 0.50 L (0.52-1.04) mg/dL POC Glucose (mg/dL) (75-99) mg/dL Assessment and Plan (1) Hypoxemia Status: Acute (2) Hypertension Status: Acute (3) Hyperlipidemia Status: Acute (4) Osteoporosis Status: Acute (5) Acute exacerbation of chronic obstructive airways disease Status: Acute (6) Adult respiratory distress syndrome Status: Acute (7) Acute respiratory failure Status: Acute (8) COPD exacerbation Status: Acute (9) Hyponatremia Status: Acute (10) Weakness Status: Acute Plan: Plan dated 01/21/2017 The patient's on appropriate medications including bronchodilators oxygen steroids and antibiotics. The patient likely be discharged in 24-48 hours if she continues to show improvement. We will recommend deep breathing coughing and clearing of secretions. No additional recommendations are made. We'll make sure she has follow-up with her primary correctional officer post discharge. Plan dated 01/25/2017 She tells me that she may be discharged home today. She'll follow-up in our office with my partner. We did have a discussion about CODE STATUS. I did discuss the pros and cons and mechanical ventilation. I told her that given her severe debility her severe COPD and how long it takes for her to recover different from a simple COPD exacerbation, mechanical ventilation would not be a good option for her. She would not want a tracheostomy and feeding tube anyway. After thoughtful discussion, she states that she does not want to be on life support. I did mention that to her nurse. I told the nurse that I would mention mention in today's note. Time with Patient: Greater than 30
--- NOTE | 2017-01-25 19:59 | P.DS ---
Providers Date of admission: 01/13/17 09:57 Expected date of discharge: 01/25/17 Attending physician: Ramiro Lugo Consults: 01/13/17 09:57 Consult Physician Routine Consulting Provider: Jordyn Ventura Consult Reason/Comments: COPD exacerbation, elevated troponin and d-dimer Do you want consulting provider notified?: Yes Primary care physician: [facility] - [place] Course: FINAL DIAGNOSES: -Acute exacerbation of end-stage COPD in a steroid-dependent ex-smoker -Acute on chronic hypoxic and hypercapnic respiratory failure, underlying chronic obstructive pulmonary disease. -Advanced end-stage COPD steroid dependent, slow to respond -Essential hypertension. -Hyperkalemia, likely hypoosmolar, improved -Hyponatremia, resolved -Medical asthenia HOSPTIAL COURSE: 71-year-old female with advanced COPD FEV1 33% of predicted, presented t with worsening shortness of breath, was admitted to the ICU she was in significant respiratory distress. Patient was placed on a BiPAP, provided DuoNeb treatments and inhaled bronchodilators, IV Solu-Medrol and Xanax for anxiety. IV antibiotics of Rocephin and oral Zithromax were initiated. . Condition improved patient was transferred and patient's condition did continue to improve. Steroids were titrated down. Today, patient is at her baseline in terms of her breathing, tolerating her diet ambulatory within the room, stable on her current home dose of oxygen and moved her bowels. Patient's condition overall is stable therefore ready for discharge. PHYSICAL EXAM: CARDIOVASCULAR: First and second sounds noted no edema RESPIRATORY: Mildly labored, some wheezing, bilateral breath sounds diminished Patient was seen and examined by nurse practitioner Hailey Conner in all elements of the case discussed with attending Dr. Lugo DISPOSITION: Home with home care Patient Condition at Discharge: Stable Plan - Discharge Summary New Discharge Prescriptions: New Ipratropium-Albuterol Nebulize [Duoneb 0.5 mg-3 mg/3 ml Soln] 3 ml INHALATION QID #120 neb Polyethylene Glycol 3350 [Miralax] 17 gm PO DAILY pack predniSONE 10 mg PO DAILY #30 tab Continue Isosorbide Mononitrate ER [Imdur] 30 mg PO DAILY Theophylline 24 Hour [Benigno-24] 300 mg PO DAILY Albuterol Sulfate [Proair Hfa] 2 puff INHALATION RT-Q4H PRN PRN Reason: Shortness Of Breath Or Wheezing Budesonide/Formoterol Fumarate [Symbicort 160-4.5 Mcg Inhaler] 2 puff INHALATION RT-BID Cholecalciferol [Vitamin D3] 2,000 unit PO DAILY Lisinopril [Zestril] 20 mg PO DAILY Ipratropium/Albuterol Sulfate [Combivent Respimat Inhaler] 1 puff INHALATION RT-QID PRN PRN Reason: Shortness Of Breath predniSONE 5 mg PO DAILY Furosemide [Lasix] 20 mg PO Q48H guaiFENesin [Mucinex] 600 mg PO DAILY PRN PRN Reason: Cough [id number] [phone] [Excedrin] 1 each PO Q6HR PRN PRN Reason: Pain Discontinued Tiotropium 18 Mcg/Puff [Spiriva] 1 cap INHALATION RT-DAILY Discharge Medication List Albuterol Sulfate [Proair Hfa] 2 puff INHALATION RT-Q4H PRN 10/29/13 [History] Budesonide/Formoterol Fumarate [Symbicort 160-4.5 Mcg Inhaler] 2 puff INHALATION RT-BID 10/29/13 [History] Isosorbide Mononitrate ER [Imdur] 30 mg PO DAILY 10/29/13 [History] Theophylline 24 Hour [Benigno-24] 300 mg PO DAILY 10/29/13 [History] Cholecalciferol [Vitamin D3] 2,000 unit PO DAILY 12/07/14 [History] Ipratropium/Albuterol Sulfate [Combivent Respimat Inhaler] 1 puff INHALATION RT- QID PRN 09/23/15 [History] Lisinopril [Zestril] 20 mg PO DAILY 09/23/15 [History] predniSONE 5 mg PO DAILY 10/17/16 [History] Furosemide [Lasix] 20 mg PO Q48H 12/16/16 [History] guaiFENesin [Mucinex] 600 mg PO DAILY PRN 01/13/17 [History] [id number] [Excedrin] 1 each PO Q6HR PRN 01/20/17 [History] Ipratropium-Albuterol Nebulize [Duoneb 0.5 mg-3 mg/3 ml Soln] 3 ml INHALATION QID #120 neb 01/25/17 [Rx] Polyethylene Glycol 3350 [Miralax] 17 gm PO DAILY pack 01/25/17 [Rx] predniSONE 10 mg PO DAILY #30 tab 01/25/17 [Rx] Follow up Appointment(s)/Referral(s): Gumaro Cummings DO [Primary Care Provider] - 02/01/17 10:00 am (Appointment with EVE Rouse) Jordyn Ventura MD [STAFF PHYSICIAN] - 02/06/17 1:45 pm Ambulatory/Diagnostic Orders: Basic Metabolic Panel [LAB.AMB] Time Frame: 3 Days, Location: Determined By Patient Patient Instructions/Handouts: COPD (Chronic Obstructive Pulmonary Disease) (DC ) Activity/Diet/Wound Care/Special Instructions: Keep on maintenance dose of prednisone after steroid taper done Cardiac diet. Continue oxygen via nasal cannula maintaining oxygen saturations above 96%. Discharge Disposition: HOME SELF-CARE
== END 2017-01-25 12:59 | disposition home or self-care (01) | DRG 189 ==
LOC: EC 08:06 → 6ICU 09:57 → 4MS4W 01-15 12:59
PROVIDERS: ADMIT Hospitalist; ATTEND Hospitalist
DX: J96.21 Acute and chronic respiratory failure with hypoxia (principal); E87.1 Hypo-osmolality and hyponatremia; I27.2 Other secondary pulmonary hypertension; Z99.81 Dependence on supplemental oxygen; J44.1 Chronic obstructive pulmonary disease with (acute) exacerbation; I10 Essential (primary) hypertension; E78.5 Hyperlipidemia, unspecified; J96.22 Acute and chronic respiratory failure with hypercapnia; E87.5 Hyperkalemia; F41.9 Anxiety disorder, unspecified; I27.81 Cor pulmonale (chronic); M81.0 Age-related osteoporosis without current pathological fracture; Z79.51 Long term (current) use of inhaled steroids; Z79.52 Long term (current) use of systemic steroids; Z79.899 Other long term (current) drug therapy; Z82.49 Family history of ischemic heart disease and other diseases of the circulatory system; Z87.440 Personal history of urinary (tract) infections; Z87.891 Personal history of nicotine dependence; Z91.040 Latex allergy status
CPT/HCPCS: 36415; 36600; 71010; 80048; 80053; 82550; 82553; 82805; 83036; 83735; 83880; 84100; 84132; 84484; 85025; 85379; 85610; 85730; 93005; 94640; 94660; 94760; 96361; 96365; 96375; 99291

== ENCOUNTER 2017-02-05 14:58 | Inpatient (IN) | payer MEDICARE ==
--- NOTE | 2017-02-05 15:28 | ED ---
General Adult HPI - General Chief complaint: Shortness of Breath Stated complaint: SOB Time Seen by Provider: 02/05/17 15:25 Source: patient, family, RN notes reviewed, old records reviewed Mode of arrival: wheelchair Limitations: no limitations - History of Present Illness Initial comments: This is a 71-year-old female to the ER for evaluation of cough congestion shortness of breath. Worsening shortness of breath the past 2-3 days. Not getting better or improving with at home breathing treatments. Patient does admit to increased cough and increased dyspnea, increased work of breathing and short of breath with activity. No chest pain at this time. She has no known fevers no travel history no sick contacts, no recent hospitalizations. No recent change in medications. - Related Data Home Medications Medication Instructions Recorded Confirmed Albuterol Sulfate [Proair Hfa] 2 puff INHALATION RT-Q4H PRN 10/29/13 02/05/17 Budesonide/Formoterol Fumarate 2 puff INHALATION RT-BID 10/29/13 02/05/17 [Symbicort 160-4.5 Mcg Inhaler] Isosorbide Mononitrate ER [Imdur] 30 mg PO DAILY 10/29/13 02/05/17 Theophylline 24 Hour [Benigno-24] 300 mg PO DAILY 10/29/13 02/05/17 Ipratropium/Albuterol Sulfate 1 puff INHALATION RT-QID 09/23/15 02/05/17 [Combivent Respimat Inhaler] Lisinopril [Zestril] 20 mg PO DAILY 09/23/15 02/05/17 Furosemide [Lasix] 20 mg PO Q48H 12/16/16 02/05/17 Yvomfxy-Kuwp-Zvvy [id number] 1 tab PO BID PRN 01/20/17 02/05/17 [Excedrin] Ipratropium-Albuterol Nebulize 3 ml INHALATION RT-QID 02/05/17 02/05/17 [Duoneb 0.5 mg-3 mg/3 ml Soln] Polyethylene Glycol 3350 [Miralax] 17 gm PO DAILY PRN 02/05/17 02/05/17 predniSONE See Taper PO DAILY 02/05/17 02/05/17 Allergies Allergy/AdvReac Type Severity Reaction Status Date / Time Latex, Natural Rubber Allergy Rash/Hives Verified 02/05/17 15:52 levofloxacin [From Levaquin] AdvReac Diarrhea Verified 02/05/17 15:52 Review of Systems ROS Statement: Those systems with pertinent positive or pertinent negative responses have been documented in the HPI. ROS Other: All systems not noted in ROS Statement are negative. Past Medical History Past Medical History: COPD, Hypertension, Pneumonia, Respiratory Disorder Additional Past Medical History / Comment(s): COPD, advanced, oxygen and steroid dependent, chronic hypoxic and hypercapnic respiratory failure, acute on chronic hypercapnic respiratory failure, previous UTI, hyponatremia, migraines but none for years, hepatitis A as a child , hemorrhoids, osteoporosis , hypertension, hyperlipidemia History of Any Multi-Drug Resistant Organisms: None Reported Past Surgical History: Tubal Ligation Past Anesthesia/Blood Transfusion Reactions: No Reported Reaction Additional Past Anesthesia/Blood Transfusion Reaction / Comment(s): Pt has never recieved blood. Past Psychological History: No Psychological Hx Reported Smoking Status: Former smoker Past Alcohol Use History: None Reported Past Drug Use History: None Reported - Past Family History Father History Unknown: Yes Family Medical History: No Reported History Mother Family Medical History: Coronary Artery Disease (CAD), Myocardial Infarction ([place] ) Additional Family Medical History / Comment(s): Mother had CABG General Exam Limitations: no limitations General appearance: alert, in no apparent distress Head exam: Present: atraumatic, normocephalic, normal inspection Eye exam: Present: normal appearance, PERRL, EOMI. Absent: scleral icterus, conjunctival injection, periorbital swelling ENT exam: Present: normal exam, mucous membranes moist Neck exam: Present: normal inspection. Absent: tenderness, meningismus, lymphadenopathy Respiratory exam: Present: normal lung sounds bilaterally, respiratory distress , wheezes, accessory muscle use, decreased breath sounds, prolonged expiratory. Absent: rales, rhonchi, stridor Cardiovascular Exam: Present: regular rate, normal rhythm, normal heart sounds. Absent: systolic murmur, diastolic murmur, rubs, gallop, clicks GI/Abdominal exam: Present: soft, normal bowel sounds. Absent: distended, tenderness, guarding, rebound, rigid Extremities exam: Present: normal inspection, full ROM, normal capillary refill. Absent: tenderness, pedal edema, joint swelling, calf tenderness Back exam: Present: normal inspection Neurological exam: Present: alert, oriented X3, CN II-XII intact Psychiatric exam: Present: normal affect, normal mood Skin exam: Present: warm, dry, intact, normal color. Absent: rash Course Vital Signs 02/05/17 02/05/17 02/05/17 15:00 15:15 15:58 Temperature 99.2 F Pulse Rate 102 H 105 H 102 H Respiratory 24 20 Rate Blood Pressure 128/56 123/60 O2 Sat by Pulse 90 L 97 Oximetry - Reevaluation(s) Reevaluation #1: 02/05/17 16:19 Patient showing no adequate improvement and prolonged breathing treatment EKG Findings - EKG Comments: EKG Findings:: EKG shows sinus tachycardia rate of 105, NH 112, QRS 68, QTC 425 Medical Decision Making - Medical Decision Making 61 female here with history of COPD coming a shortness of breath increased shortness of breath was pneumonia on x-ray. Patient admitted for Robaxin. She was, monitoring of her cardiopulmonary status - Lab Data Result diagrams: 02/05/17 15:25 Lab Results 02/05/17 Range/Units 15:25 WBC 7.6 (3.8-10.6) k/uL RBC 3.66 L (3.80-5.40) m/uL Hgb 11.9 (11.4-16.0) gm/dL Hct 35.8 (34.0-46.0) % MCV 97.8 (80.0-100.0) fL MCH 32.5 (25.0-35.0) pg MCHC 33.3 (31.0-37.0) g/dL RDW 16.1 H (11.5-15.5) % Plt Count 278 (150-450) k/uL Neutrophils % 78 % Lymphocytes % 11 % Monocytes % 6 % Eosinophils % 2 % Basophils % 1 % Neutrophils # 5.9 (1.3-7.7) k/uL Lymphocytes # 0.8 L (1.0-4.8) k/uL Monocytes # 0.5 (0-1.0) k/uL Eosinophils # 0.1 (0-0.7) k/uL Basophils # 0.1 (0-0.2) k/uL Anisocytosis Slight Macrocytosis Slight - Radiology Data Radiology results: report reviewed (Chest x-ray is positive for pneumonia), image reviewed Disposition Clinical Impression: Acute exacerbation of chronic obstructive airways disease, Community acquired pneumonia, Hypoxemia Disposition: ADMITTED IP TO THIS HOSP Condition: Fair Referrals: Gumaro Cummings DO [Primary Care Provider] - 1-2 days
[2017-02-05] MEDS ORDERED: ALBUTEROL NEBULIZED 2.5 MG/3 ML INHALATION STA (15:33)
[2017-02-05] MEDS ORDERED: IPRATROPIUM 0.5 MG/2.5 ML NEBU INHALATION STA (15:33)
[2017-02-05] MEDS ORDERED: SODIUM CHLORIDE 0.9% 1,000 ML IV STA (15:33)
[2017-02-05] MEDS ORDERED: methylPREDNISolone SOD SUCCI 125 MG/2 ML VIAL IV STA (15:51)
--- NOTE | 2017-02-05 15:58 | XR ---
EXAMINATION TYPE: XR chest 2V DATE OF EXAM: 02/05/2017 COMPARISON: Prior chest x-ray 01/16/2017 HISTORY: Difficulty breathing, dyspnea TECHNIQUE: Frontal and lateral views of the chest are obtained. FINDINGS: Bullous emphysematous changes are present. Interval development of some increased attenuat ion in the right upper lobe. Apical pleural thickening is mild on the right. Heart is small. There ar e overlying cardiac leads. IMPRESSION: Findings could represent pneumonia. Follow-up to resolution to exclude underlying mass.
[2017-02-05] MEDS ORDERED: SODIUM CHLORIDE 0.9% 1,000 ML IV SCH (16:00)
[2017-02-05 16:14] LABS: Anisocytosis Slight; Basophils # (A) 0.1 k/uL (0-0.2); Basophils % (A) 1 %; CHCM 33.9; Eosinophils # (A) 0.1 k/uL (0-0.7); Eosinophils % (A) 2 %; HCT 35.8 % (34.0-46.0); HDW 2.39; HGB 11.9 gm/dL (11.4-16.0); Luc % (Auto) 3; Lymphocytes # (A) 0.8 k/uL (1.0-4.8); Lymphocytes % (A) 11 %; MCH 32.5 pg (25.0-35.0); MCHC 33.3 g/dL (31.0-37.0); MCV 97.8 fL (80.0-100.0); Macrocytosis Slight; Mean Platelet Volume 8.4; Monocytes # (A) 0.5 k/uL (0-1.0); Monocytes % (A) 6 %; Neutrophils # (A) 5.9 k/uL (1.3-7.7); Neutrophils % (A) 78 %; RBC 3.66 m/uL (3.80-5.40); RDW 16.1 % (11.5-15.5); WBC 7.6 k/uL (3.8-10.6); WBC (Perox) 7.49
[2017-02-05] MEDS ORDERED: RX INFO: IV CONTRAST WAS GIVEN 1 EACH MISC MISCELLANE PRN (16:17)
[2017-02-05] MEDS ORDERED: AZITHROMYCIN 500 MG in SODIUM CHLORIDE 0.9% 250 ML IVPB STA (16:20)
[2017-02-05 16:27] LABS: ALT 34 U/L (9-52); AST 19 U/L (14-36); Alkaline Phosphatase 54 U/L (38-126); Anion Gap 7 mmol/L; Blood Urea Nitrogen 13 mg/dL (7-17); Calcium 8.9 mg/dL (8.4-10.2); Carbon Dioxide 34 mmol/L (22-30); Chloride 93 mmol/L (98-107); Glucose 109 mg/dL (74-99); Magnesium 1.9 mg/dL (1.6-2.3); Non-African American GFR(MDRD) >60 (>60 ml/min/1.73 sqM); Potassium 4.4 mmol/L (3.5-5.1); Sodium 134 mmol/L (137-145); Total Bilirubin 0.5 mg/dL (0.2-1.3)
[2017-02-05] MEDS ORDERED: LEVOFLOXACIN 750MG-D5W PMX 750 MG in DEXTROSE/WATER 1 150ML.BAG IVPB SCH (16:30)
[2017-02-05 16:44] LABS: Creatine Kinase 31 U/L (30-135)
[2017-02-05 16:57] LABS: Creatine Kinase MB 1.5 ng/mL (0.0-2.4); INR 0.9 (<1.2); Prothrombin Time 9.7 sec (9.0-12.0); Troponin I <0.012 ng/mL (0.000-0.034)
--- NOTE | 2017-02-05 18:10 | CT ---
EXAMINATION TYPE: CT angio chest DATE OF EXAM: 02/05/2017 5:25 PM COMPARISON: 09/26/2015 HISTORY: Chest pain and difficulty breathing CT DLP: 214 mGycm. Automated exposure control for dose reduction was used. CONTRAST: CTA scan of the thorax is performed with IV Contrast, patient injected with 100 mL of Omnip aque 350, pulmonary embolism protocol. . FINDINGS: LUNGS: There are markedly advanced emphysematous changes throughout the lung parenchyma. Within the p osterior segment of the right upper lobe there is consolidative opacity affecting approximately 5% of the right upper lobe. It creates an interface at the interlobar fissure. This is consistent with a c linical diagnosis of pneumonia. There is a similar consolidation, though arch smaller, in the medial segment of the anterior right middle lobe. MEDIASTINUM: There is less than robust contrast-enhancement of the pulmonary artery and its branches, there is no CT evidence for pulmonary embolism. There are no greater than 1 cm hilar or mediastinal lymph nodes. There are prominent left and right coronary calcifications. No cardiomegaly, but hetero geneous left ventricular myocardial attenuation noted. Heterogeneity may be artifactual, but myocardi al assessment is requested. There is no pericardial effusion is seen. OTHER: No additional significant abnormality is seen. IMPRESSION: 1. NEGATIVE FOR PULMONARY EMBOLISM. 2. MARKED EMPHYSEMA WITH RADIOGRAPHIC FINDINGS WHICH CAN CORRELATE WITH A CLINICAL DIAGNOSIS OF MULTI FOCAL BRONCHOPNEUMONIA. 3. MARKED CORONARY CALCIFICATIONS - LEFT VENTRICULAR MYOCARDIAL HETEROGENEITY DISCUSSED.
[2017-02-05] MEDS ORDERED: POLYETHYLENE GLYCOL 3350 17 GM POWD.PACK PO PRN (18:16)
[2017-02-05] MEDS: SYMBICORT 160-4.5 MCG INHALER INHALATION SCH (19:54)
[2017-02-05] MEDS: IPRATROPIUM-ALBUTEROL 3 ML NEB INHALATION SCH ×2 (19:56→23:24)
[2017-02-05] MEDS ORDERED: IPRATROPIUM-ALBUTEROL 3 ML NEB INHALATION SCH ×2 (20:00)
[2017-02-05] MEDS ORDERED: BUDESONIDE 1 MG/2 ML NEBU INHALATION SCH (20:00)
[2017-02-05 20:59] LABS: Glucose,Whole Blood 116 mg/dL (75-99)
[2017-02-05] MEDS: methylPREDNISolone SOD SUCCI 40 MG/ML 1 ML VIAL IV SCH (23:35)
[2017-02-06] MEDS ORDERED: methylPREDNISolone SOD SUCCI 125 MG/2 ML VIAL IV SCH
[2017-02-06] MEDS: IPRATROPIUM-ALBUTEROL 3 ML NEB INHALATION SCH ×5 (03:36→20:36)
[2017-02-06 07:19] LABS: Glucose,Whole Blood 125 mg/dL (75-99)
[2017-02-06] MEDS: SYMBICORT 160-4.5 MCG INHALER INHALATION SCH ×2 (07:40→20:37)
[2017-02-06 07:50] LABS: Basophils % (A) 0 %; CH 32.9; CHCM 33.4; Eosinophils % (A) 0 %; HCT 34.3 % (34.0-46.0); HDW 2.34; Luc # (Auto) 0.05; Luc % (Auto) 1; Lymphocytes # (A) 0.4 k/uL (1.0-4.8); Lymphocytes % (A) 7 %; MCH 31.8 pg (25.0-35.0); MCHC 32.1 g/dL (31.0-37.0); MCV 99.1 fL (80.0-100.0); Macrocytosis Slight; Mean Platelet Volume 8.3; Monocytes # (A) 0.2 k/uL (0-1.0); Monocytes % (A) 3 %; Neutrophils # (A) 4.5 k/uL (1.3-7.7); Neutrophils % (A) 89 %; RBC 3.46 m/uL (3.80-5.40); RDW 15.6 % (11.5-15.5); WBC (Perox) 5.22
[2017-02-06 08:14] LABS: Anion Gap 6 mmol/L; Blood Urea Nitrogen 17 mg/dL (7-17); Calcium 8.7 mg/dL (8.4-10.2); Carbon Dioxide 31 mmol/L (22-30); Chloride 100 mmol/L (98-107); Glucose 125 mg/dL (74-99); Non-African American GFR(MDRD) >60 (>60 ml/min/1.73 sqM); Potassium 4.6 mmol/L (3.5-5.1); Sodium 137 mmol/L (137-145)
--- NOTE | 2017-02-06 08:17 | HP ---
HISTORY AND PHYSICAL DATE OF ADMISSION: February 05, 2017. PRESENTING COMPLAINT: Short of breath. 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 The patient's chronic stable medical conditions include hypertension, medical asthenia. The patient is on home oxygen 2 L, steroid dependent. Patient presents with worsening short of breath. Having trouble speaking at rest even getting to the bathroom. Admitted for the same. Denies any fever. Decreased appetite. Tired and run down. Decreased appetite and no fever. REVIEW OF SYSTEMS: Constitutional: Tired. HEENT: None. Respiratory as above. Cardiovascular: None. Gastrointestinal: None. Genitourinary: None. Musculoskeletal: None. Dermatological: Some bruising. Hematologic: None. Lymphatic: None: Psychiatry: Some anxiety. Neurologic: None. PAST MEDICAL HISTORY: End-stage COPD, hypertension, chronic hypoxic respiratory failure, steroid dependent, hepatitis B as a child. Osteoporosis and hyperlipidemia. PAST SURGICAL HISTORY: Tubal ligation. SOCIAL HISTORY: The patient's daughter Lisa lives with her. On home oxygen 2 L. Does have a walker wheelchair, uses to get to the bathroom. The patient smoked for about 50 years. Stopped in 2012. Alcohol none. FAMILY HISTORY: Of CABG. HOME MEDICATIONS: 1. Prednisone taper. 2. Theophylline 24 300 mg a day. 3. MiraLAX 17 g p.o. daily p.r.n. 4. Zestril 20 mg a day. 5. Imdur ER 30 mg a day. 6. Combivent 1 puff q.i.d. 7. DuoNeb q.i.d. 8. Lasix 20 mg every 48 hours. 9. Symbicort 160/4.5, 2 puffs b.i.d. 10.Excedrin 1 tab p.o. b.i.d. p.r.n. 11.Albuterol ProAir 2 puffs q.4h p.r.n. ALLERGIES: TO LATEX AND LEVAQUIN. EXAMINATION: Temperature 97.1, pulse 108. Respiration 18. Blood pressure 150/77, pulse ox 95% on 2 L. General appearance: Sitting up, short of breath at rest. Not able to speak in full sentences. Eyes pupils equal. Conjunctivae normal. HEENT: Oral cavity normal. Neck: JVD not raised. Mass not palpable. Respiratory effort increased. Accessory muscles are working. LUNGS: Diminished breath sounds. Prolonged expiration. No wheezing. Cardiovascular first and second sounds. No edema. ABDOMEN: Soft, nontender. Liver spleen not palpable. Lymphatics: No lymph nodes palpable in the neck and axilla. Psychiatry: Alert and oriented times three. Mood and affect: Anxious appearing. Neurological: Pupils equal. Cranial nerves grossly intact. Power and sensation grossly intact. Dermatological: Diffuse bruising is present. INVESTIGATIONS: White count 10.6, hemoglobin 11.9, potassium 4.4, BUN 13, creatinine 0.40. ASSESSMENT: 1. Acute severe exacerbation of end-stage chronic obstructive pulmonary disease in a steroid dependent ex-smoker. 2. Acute on chronic hypoxic and hypercapnic respiratory failure, underlying chronic obstructive pulmonary disease. Present on admission. 3. Essential hypertension. 4. Possible pneumonia suspect gram-negative organism present admission. PLAN: Patient put on nebulized bronchodilators and nebulized steroids, IV steroids. Pulmonary consulted. Home medications resumed. Prognosis: Overall guarded. The patient did have a chest CTA that was negative for PE. Suggested some pneumonia on the chest x-ray. The patient is put on IV ceftriaxone. Care was discussed. Overall prognosis guarded. Copy Dr. Cummings. Dr. Parker consulted. MMRAEGANL / FBAYN: [id number] /
[2017-02-06] MEDS: methylPREDNISolone SOD SUCCI 40 MG/ML 1 ML VIAL IV SCH ×3 (08:53→23:34)
[2017-02-06] MEDS: ISOSORBIDE MONONITRATE ER 30 MG TAB.ER.24H PO SCH (08:54)
[2017-02-06] MEDS: THEOPHYLLINE 24 HOUR 300 MG CAP.ER.24H PO SCH (08:54)
[2017-02-06] MEDS: LISINOPRIL 20 MG TAB PO SCH (08:54)
[2017-02-06] MEDS: ENOXAPARIN 40 MG/0.4 ML SYRINGE SQ SCH ×2 (08:54→08:56)
--- NOTE | 2017-02-06 11:08 | P.CNPUL ---
History of Present Illness Consult date: 02/06/17 Requesting physician: Ramiro Luog Reason for consult: dyspnea, COPD, abnormal CXR/CT (Right upper lobe consolidation) Chief complaint: Shortness of breath, cough, congestion History of present illness: This is a very pleasant 71-year-old female patient who follows with Dr. Verena Cummings as her primary care physician. She has a history of hypertension, hyperlipidemia, osteoporosis. She also has a history of severe end-stage oxygen-dependent, steroid-dependent Gold stage III/IV chronic obstructive pulmonary disease. Her most recent FEV1 value is 33% of predicted. She does have a history of chronic tobacco dependence but did quit in 2012. She has multiple admissions for her COPD exacerbation and was most recently discharged on 01/25/2017. She had been doing fairly well since then but did develop increasing shortness of breath, cough and congestion again and re- presented to the emergency room here yesterday. Her CT scan ruled out pulmonary embolism. There was a new right upper lobe consolidation/pneumonia. She is seen today in Patient on the regular medical floor. Presently she is awake and alert in no acute distress. She admits to breathing easier today as compared to yesterday all ready. She's been initiated on ceftriaxone and azithromycin along with DuoNeb inhalations, Symbicort, IV Solu-Medrol. She is maintaining good O2 saturations in the upper 90s on 2 L/m per nasal cannula. She is afebrile. Hemodynamically stable. There is no leukocytosis. Bicarb 31. Review of Systems 14 point review of system was conducted. All negative other than as mentioned in the HPI. Past Medical History Past Medical History: COPD, Hypertension, Pneumonia, Respiratory Disorder Additional Past Medical History / Comment(s): readmit with COPD and SOB. COPD, advanced, oxygen and steroid dependent, chronic hypoxic and hypercapnic respiratory failure, acute on chronic hypercapnic respiratory failure, previous UTI, hyponatremia, migraines but none for years, hepatitis A as a child , hemorrhoids, osteoporosis, hypertension, hyperlipidemia History of Any Multi-Drug Resistant Organisms: None Reported Past Surgical History: Tubal Ligation Past Anesthesia/Blood Transfusion Reactions: No Reported Reaction Additional Past Anesthesia/Blood Transfusion Reaction / Comment(s): Pt has never recieved blood. Past Psychological History: No Psychological Hx Reported Additional Psychological History / Comment(s): Pt's daughter (Lisa) lives with her. Pt is O2 dependent at 2L/[place]. She uses a seated walker if she is feeling weak. 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 She performs her own ADLs. She manages her own medications. Smoking Status: Former smoker Past Alcohol Use History: None Reported Additional Past Alcohol Use History / Comment(s): Pt started smoking in 1962 and quit in 2012 Past Drug Use History: None Reported - Past Family History Father History Unknown: Yes Family Medical History: No Reported History Mother Family Medical History: Coronary Artery Disease (CAD), Myocardial Infarction ([place] ) Additional Family Medical History / Comment(s): Mother had CABG Medications and Allergies Home Medications Medication Instructions Recorded Confirmed Type Albuterol Sulfate [Proair Hfa] 2 puff INHALATION RT-Q4H PRN 10/29/13 02/05/17 History Budesonide/Formoterol Fumarate 2 puff INHALATION RT-BID 10/29/13 02/05/17 History [Symbicort 160-4.5 Mcg Inhaler] Isosorbide Mononitrate ER [Imdur] 30 mg PO DAILY 10/29/13 02/05/17 History Theophylline 24 Hour [Benigno-24] 300 mg PO DAILY 10/29/13 02/05/17 History Ipratropium/Albuterol Sulfate 1 puff INHALATION RT-QID 09/23/15 02/05/17 History [Combivent Respimat Inhaler] Lisinopril [Zestril] 20 mg PO DAILY 09/23/15 02/05/17 History Furosemide [Lasix] 20 mg PO Q48H 12/16/16 02/05/17 History Vlltirh-Dlli-Uhul [id number] 1 tab PO BID PRN 01/20/17 02/05/17 History [Excedrin] Ipratropium-Albuterol Nebulize 3 ml INHALATION RT-QID 02/05/17 02/05/17 History [Duoneb 0.5 mg-3 mg/3 ml Soln] Polyethylene Glycol 3350 [Miralax] 17 gm PO DAILY PRN 02/05/17 02/05/17 History predniSONE See Taper PO DAILY 02/05/17 02/05/17 History Allergies Allergy/AdvReac Type Severity Reaction Status Date / Time Latex, Natural Rubber Allergy Rash/Hives Verified 02/05/17 15:52 levofloxacin [From Levaquin] AdvReac Diarrhea Verified 02/05/17 15:52 Physical Exam Vitals: Vital Signs Temp Pulse Pulse Pulse Resp BP BP 02/06/17 07:54 100 02/06/17 07:40 100 02/06/17 07:00 97.3 F L 89 16 172/81 02/06/17 03:48 92 02/06/17 03:36 96 02/05/17 23:35 96 02/05/17 23:25 92 02/05/17 23:00 97 F L 102 H 22 149/69 02/05/17 20:14 92 02/05/17 19:56 91 02/05/17 18:09 97.1 F L 103 H 18 155/77 02/05/17 17:34 98.2 F 101 H 20 153/70 02/05/17 16:39 108 H 02/05/17 16:30 110 H 02/05/17 16:21 103 H 20 166/76 02/05/17 15:58 102 H 02/05/17 15:15 105 H 20 123/60 02/05/17 15:00 99.2 F 102 H 24 128/56 Pulse Ox 02/06/17 07:54 02/06/17 07:40 02/06/17 07:00 98 02/06/17 03:48 02/06/17 03:36 02/05/17 23:35 02/05/17 23:25 02/05/17 23:00 95 02/05/17 20:14 02/05/17 19:56 02/05/17 18:09 95 02/05/17 17:34 96 02/05/17 16:39 02/05/17 16:30 02/05/17 16:21 98 02/05/17 15:58 02/05/17 15:15 97 02/05/17 15:00 90 L Intake and Output 02/05/17 02/06/17 02/06/17 22:59 06:59 14:59 Intake Total 1100 100 Balance 1100 100 Intake: Intake, IV Titration 800 Amount Sodium Chloride 0.9% 1, 800 000 ml @ 100 mls/hr IV . Q10H [facility] Rx#:[id number] Oral 300 100 Other: Voiding Method Bedside Commode # Voids 1 2 1 # Bowel Movements 0 Weight 54.885 kg GENERAL EXAM: Alert, fairly comfortable in no apparent distress. HEAD: Normocephalic. EYES: Normal reaction of pupils, equal size. NOSE: Clear with pink turbinates. THROAT: No erythema or exudates. NECK: No masses, no JVD. CHEST: No chest wall deformity. LUNGS: Equal air entry with end expiratory wheeze, scattered rhonchi. Diminished throughout. CVS: S1 and S2 normal with no audible murmurs, regular rhythm. ABDOMEN: No hepatosplenomegaly, normal bowel sounds, no guarding or rigidity. SPINE: No scoliosis or deformity SKIN: Multiple areas of ecchymosis secondary to chronic steroid use. CENTRAL NERVOUS SYSTEM: No focal deficits, tone is normal in all 4 extremities. Extremities: There is trace peripheral edema. No clubbing, no cyanosis. Peripheral pulses are intact. Results - Laboratory Findings CBC and BMP: 02/06/17 07:24 02/06/17 07:24 PT/INR, D-dimer PT 9.7 sec (9.0-12.0) 02/05/17 15:25 INR 0.9 (<1.2) 02/05/17 15:25 Abnormal lab findings: Abnormal Labs 02/05/17 02/05/17 02/05/17 15:25 15:25 20:47 RBC 3.66 L Hgb RDW 16.1 H Lymphocytes # 0.8 L Sodium 134 L Chloride 93 L Carbon Dioxide 34 H Creatinine 0.40 L Glucose 109 H POC Glucose (mg/dL) 116 H Total Protein 6.0 L 02/06/17 02/06/17 02/06/17 06:59 07:24 07:24 RBC 3.46 L Hgb 11.0 L RDW 15.6 H Lymphocytes # 0.4 L Sodium Chloride Carbon Dioxide 31 H Creatinine 0.42 L Glucose 125 H POC Glucose (mg/dL) 125 H Total Protein - Diagnostic Findings Chest x-ray: image reviewed CT scan - chest: image reviewed Assessment and Plan Plan: Impression: #1 Acute exacerbation of severe oxygen-dependent, steroid-dependent Gold stage III/IV chronic obstructive pulmonary disease. FEV1 value 33% of predicted. #2 Right upper lobe consolidation, suspect pneumonia, suspect gram-negative. #3 Acute on chronic hypoxic respiratory failure secondary to above. #4 Acute on chronic hypercapnic respiratory failure secondary to above. #5 History of chronic tobacco dependence, quit in 2012. #6 Hypertension. Plan: The patient was seen and evaluated by Dr. Parker. Her chest x-ray, CT scan and labs were all reviewed. There is some concern regarding possible right upper lobe pneumonia. We'll continue with her current antibiotics in the form of ceftriaxone and azithromycin. Continue her COPD exacerbation medications including IV Solu-Medrol, DuoNeb inhalations and Symbicort. She is on Lovenox for DVT prophylaxis. We will add Protonix for GI prophylaxis. We will increase her activity as tolerated. We'll continue to follow. Time with Patient: Greater than 30
[2017-02-06 11:52] LABS: Glucose,Whole Blood 127 mg/dL (75-99)
[2017-02-06] MEDS: PANTOPRAZOLE 40 MG TABLET PO SCH (12:27)
--- NOTE | 2017-02-06 15:35 | P.PN ---
<ParishRamiro - Last Filed: 02/07/17 11:57> Progress Note - Text Attending note. Date of service-02/06/2017 This patient was seen and examined by me . Discussed the patient with my nurse practitioner Dalila. Short of breath, tired. Eating some. On examination: Short of breath at rest. Accessory muscles or working. Lungs-decreased breath sounds prolonged expiration, psych-anxious Investigations: Accu-Cheks noted Assessment and plan: End-stage COPD exacerbation slow to respond/steroid-dependent with possible pneumonia Acute on chronic hypoxic/hypercapnic respiratory failure Continue with steroids antibiotics nebulized bronchodilator. Care discussed the patient. Prognosis guarded <DalilaHailey Oscar - Last Filed: 02/07/17 17:08> Progress Note - Text DATE OF SERVICE: 02/06/2017 PRESENTING COMPLAINT: Shortness of breath HISTORY OF PRESENT ILLNESS: 71-year-old female with end-stage COPD presented to the emergency department with worsening shortness of breath. Had trouble speaking at rest and even getting to the bathroom. Admitted for the same. INTERVAL HISTORY: 02/06/2017: Patient sitting up at the bedside in a tripod position on the bedside table, very short of breath at rest. Has a cough, some sputum production, whitish in color. Seen by pulmonology today. Appears anxious Appetite poor, has some difficulty eating, last BM prior to admission. REVIEW OF SYSTEMS: Done for constitutional ,cardiovascular, GI, pulmonary with relevant findings as above. CURRENT MEDICATIONS Azithromycin, Symbicort, ceftriaxone, Lovenox, lisinopril, Solu-Medrol, Protonix , MiraLAX, theophylline. PHYSICAL EXAM VITAL SIGNS: Temperature 97.3, pulse 89, respirations 16, blood pressure 172/81, oxygen saturation 98% on 2 L GENERAL APPEARANCE: Sitting up on the bed in a tripod position, appears anxious , short of breath. EYES: Pupils equal. Conjunctiva normal. NECK: JVD not raised. Mass not palpable. RESPIRATORY: Respiratory effort increased Lungs prolonged expiration, accessory muscle use CARDIOVASCULAR: First and second sounds normal. No edema. ABDOMEN: Soft. Liver and spleen not palpable. No tenderness. No mass palpable. PSYCHIATRY: Alert and oriented x3. Mood and affect anxious. INTEGUMENT: Scattered ecchymoses on upper extremities and lower extremities. INVESTIGATIONS: White blood cell count 5.0, hemoglobin 11.0, carbon dioxide 31, creatinine 0.42 , Accu-Cheks noted ASSESSMENT: -Acute severe exacerbation of end-stage chronic obstructive pulmonary disease in the steroid-dependent ex-smoker. -Acute on chronic hypoxic and hypercapnic respiratory failure, underlying chronic obstructive pulmonary disease. Present on admission. -Essential hypertension. -Possible pneumonia suspect gram-negative organism present on admission. PLAN: We'll continue nebulized bronchodilators and nebulized steroids, IV steroids await input from pulmonology. IV antibiotics of ceftriaxone for suspected pneumonia. We will continue to monitor closely. Plan of care discussed with the patient the bedside she is in agreement. WIND ENERGY ENGINEER statement: Patient was seen and examined by nurse practitioner Hailey Conner and all elements of the case discussed with attending Dr. Lugo
[2017-02-06 17:16] LABS: Glucose,Whole Blood 129 mg/dL (75-99)
[2017-02-06] MEDS ORDERED: AZITHROMYCIN 500 MG in SODIUM CHLORIDE 0.9% 250 ML IVPB SCH (18:00)
[2017-02-06 20:42] LABS: Glucose,Whole Blood 127 mg/dL (75-99)
[2017-02-07] MEDS: IPRATROPIUM-ALBUTEROL 3 ML NEB INHALATION SCH ×6 (01:11→20:44)
[2017-02-07 07:26] LABS: Glucose,Whole Blood 122 mg/dL (75-99)
[2017-02-07] MEDS: SYMBICORT 160-4.5 MCG INHALER INHALATION SCH ×2 (07:29→20:44)
[2017-02-07] MEDS: PANTOPRAZOLE 40 MG TABLET PO SCH (08:13)
[2017-02-07] MEDS: ISOSORBIDE MONONITRATE ER 30 MG TAB.ER.24H PO SCH (08:14)
[2017-02-07] MEDS: ENOXAPARIN 40 MG/0.4 ML SYRINGE SQ SCH (08:14)
[2017-02-07] MEDS: methylPREDNISolone SOD SUCCI 40 MG/ML 1 ML VIAL IV SCH ×3 (08:14→23:38)
[2017-02-07] MEDS: THEOPHYLLINE 24 HOUR 300 MG CAP.ER.24H PO SCH (08:14)
[2017-02-07] MEDS: LISINOPRIL 20 MG TAB PO SCH (08:14)
[2017-02-07] MEDS ORDERED: FUROSEMIDE 20 MG TAB PO SCH (09:00)
[2017-02-07 12:20] LABS: Glucose,Whole Blood 133 mg/dL (75-99)
--- NOTE | 2017-02-07 13:39 | P.PN ---
Subjective Principal diagnosis: Acute exacerbation of severe end-stage oxygen-dependent chronic obstructive pulmonary disease. This is a very pleasant 71-year-old female patient who follows with Dr. Verena Cummings as her primary care physician. She has a history of hypertension, hyperlipidemia, osteoporosis. She also has a history of severe end-stage oxygen-dependent, steroid-dependent Gold stage III/IV chronic obstructive pulmonary disease. Her most recent FEV1 value is 33% of predicted. She does have a history of chronic tobacco dependence but did quit in 2012. She has multiple admissions for her COPD exacerbation and was most recently discharged on 01/25/2017. She had been doing fairly well since then but did develop increasing shortness of breath, cough and congestion again and re- presented to the emergency room here yesterday. Her CT scan ruled out pulmonary embolism. There was a new right upper lobe consolidation/pneumonia. She is seen today in Patient on the regular medical floor. Presently she is awake and alert in no acute distress. She admits to breathing easier today as compared to yesterday all ready. She's been initiated on ceftriaxone and azithromycin along with DuoNeb inhalations, Symbicort, IV Solu-Medrol. She is maintaining good O2 saturations in the upper 90s on 2 L/m per nasal cannula. She is afebrile. Hemodynamically stable. There is no leukocytosis. Bicarb 31. The patient is seen again today 02/07/2017 in follow-up on the regular medical floor. She is awake and alert in no acute distress. She is breathing slightly better today as compared to yesterday but still not quite back to her baseline. She is still quite dyspneic with minimal exertion. She is maintaining good to O2 saturations up to 100% on 2 L/m per nasal cannula. She's been afebrile. Objective - Vital Signs Vital signs: Vital Signs Temp 97.0 F L 02/07/17 07:00 Pulse 84 02/07/17 11:39 Resp 18 02/07/17 07:00 BP 143/79 02/07/17 07:00 Pulse Ox 100 02/07/17 07:00 Intake & Output 02/06/17 02/07/17 02/07/17 18:59 06:59 18:59 Other: Voiding Method Bedside Commode # Voids 1 2 1 - Exam GENERAL EXAM: Alert, fairly comfortable in no apparent distress. HEAD: Normocephalic. EYES: Normal reaction of pupils, equal size. NOSE: Clear with pink turbinates. THROAT: No erythema or exudates. NECK: No masses, no JVD. CHEST: No chest wall deformity. LUNGS: Equal air entry with end expiratory wheeze, scattered rhonchi. Diminished throughout. CVS: S1 and S2 normal with no audible murmurs, regular rhythm. ABDOMEN: No hepatosplenomegaly, normal bowel sounds, no guarding or rigidity. SPINE: No scoliosis or deformity SKIN: Multiple areas of ecchymosis secondary to chronic steroid use. CENTRAL NERVOUS SYSTEM: No focal deficits, tone is normal in all 4 extremities. Extremities: There is trace peripheral edema. No clubbing, no cyanosis. Peripheral pulses are intact. - Labs CBC & Chem 7: 02/06/17 07:24 02/06/17 07:24 Labs: Abnormal Lab Results - Last 24 Hours (Table) 02/06/17 02/06/17 02/07/17 Range/Units 17:13 20:40 07:22 POC Glucose (mg/dL) 129 H 127 H 122 H (75-99) mg/dL 02/07/17 Range/Units 12:15 POC Glucose (mg/dL) 133 H (75-99) mg/dL Assessment and Plan Plan: Impression: #1 Acute exacerbation of severe oxygen-dependent, steroid-dependent Gold stage III/IV chronic obstructive pulmonary disease. FEV1 value 33% of predicted. #2 Right upper lobe consolidation, suspect pneumonia, suspect gram-negative. #3 Acute on chronic hypoxic respiratory failure secondary to above. #4 Acute on chronic hypercapnic respiratory failure secondary to above. #5 History of chronic tobacco dependence, quit in 2012. #6 Hypertension. Plan: The patient was seen and evaluated by Dr. Parker. She is slow to progress. We' ll continue with her current antibiotics in the form of ceftriaxone and azithromycin. Continue her COPD exacerbation medications including IV Solu- Medrol, DuoNeb inhalations and Symbicort. She is on Lovenox for DVT prophylaxis. We will add Protonix for GI prophylaxis. We will increase her activity as tolerated. We'll continue to follow.
[2017-02-07] MEDS ORDERED: FLUCONAZOLE 100 MG TAB PO ONE (14:32)
--- NOTE | 2017-02-07 14:41 | P.PN ---
Progress Note - Text DATE OF SERVICE: 02/07/2017 PRESENTING COMPLAINT: Shortness of breath HISTORY OF PRESENT ILLNESS: Increasing shortness of breath cough congestion or presented to the emergency room with an acute exacerbation of COPD. INTERVAL HISTORY: 02/07/2017: Sitting up at the bedside, short of breath with conversation and exertion, cough with sputum production, appetite good eating between 75 -100% of whats brought to her. No BM 02/06/2017: Patient sitting up at the bedside in a tripod position on the bedside table, very short of breath at rest. Seen by pulmonology today. Appears anxious Appetite poor, has some difficulty eating, last BM prior to admission. REVIEW OF SYSTEMS: Done for constitutional ,cardiovascular, GI, pulmonary with relevant findings as above. CURRENT MEDICATIONS Azithromycin 500 mg by mouth every 24 hours, Symbicort, ceftriaxone 1000 milligrams IV piggyback, Lovenox, lisinopril 20 mg daily, Solu-Medrol 40 mg every 8, Protonix, MiraLAX, theophylline 300 mg daily. PHYSICAL EXAM VITAL SIGNS: Temperature 97.0, pulse 97, respiratory rate 18, blood pressure 143/79, oxygen saturation 100% on 2 L GENERAL APPEARANCE: Sitting up on the bed , appears anxious, short of breath. EYES: Pupils equal. Conjunctiva normal. MOUTH: Patchy white areas to the throat and posterior tongue NECK: JVD not raised. Mass not palpable. RESPIRATORY: Respiratory effort increased Lungs prolonged expiration, accessory muscle use CARDIOVASCULAR: First and second sounds normal. No edema. ABDOMEN: Soft. Liver and spleen not palpable. No tenderness. No mass palpable. PSYCHIATRY: Alert and oriented x3. Mood and affect anxious. INTEGUMENT: Scattered ecchymoses on upper extremities and lower extremities. INVESTIGATIONS: White blood cell count 5.0, hemoglobin 11.0, sodium 137, potassium 4.6, carbon dioxide 31, BUN 17 creatinine 0.42, Accu-Cheks noted. ASSESSMENT: -End-stage COPD exacerbation slow to respond/steroid-dependent with possible pneumonia -Acute on chronic hypoxic and hypercapnic respiratory failure, underlying chronic obstructive pulmonary disease. Present on admission. -Essential hypertension. -Hyperglycemia secondary to steroid use PLAN: We'll continue nebulized bronchodilators and nebulized steroids, IV steroids await input from pulmonology. IV antibiotics of ceftriaxone for pneumonia. Monitor Accu-Cheks. Increase activity as she can tolerate. We will continue to monitor closely. Plan of care discussed with the patient the bedside she is in agreement. COMMERCIAL SALES DIRECTOR statement: Patient was seen and examined by nurse practitioner Hailey Conner and all elements of the case discussed with attending Dr. Lugo
[2017-02-07 17:26] LABS: Glucose,Whole Blood 132 mg/dL (75-99)
[2017-02-07] MEDS ORDERED: AZITHROMYCIN 500 MG TAB PO SCH (18:00)
[2017-02-07 20:34] LABS: Glucose,Whole Blood 154 mg/dL (75-99)
--- NOTE | 2017-02-07 22:17 | PN ---
PROGRESS NOTE DATE OF SERVICE: 02/07/2017. ATTENDING NOTE: This patient was seen and examined by me. I discussed with my nurse practitioner, Collinelayne This patient has COPD, remains to be tired, short of breath, has a cough, not bringing up much. Tired, eating better. Short of breath at rest. EXAMINATION: LUNGS: Poor air entry. Oral cavity shows pharyngeal thrush. INVESTIGATIONS: White count 5. ASSESSMENT: 1. Acute severe chronic obstructive pulmonary disease, end stage, slow to respond. 2. Acute on chronic hypoxic respiratory failure from above. 3. Oropharyngeal thrush. 4. End-stage chronic obstructive pulmonary disease, slow respond. 5. Acute on chronic hypoxic respiratory failure. 6. Pharyngeal candidiasis from steroids. PLAN: Will add Diflucan, continue nebulized bronchodilators, steroids. Prognosis guarded. Follow with Pulmonary. MMODL / IJN: [id number] /
[2017-02-08] MEDS: IPRATROPIUM-ALBUTEROL 3 ML NEB INHALATION SCH ×4 (00:17→11:07)
[2017-02-08] MEDS: SYMBICORT 160-4.5 MCG INHALER INHALATION SCH (07:07)
[2017-02-08] MEDS: methylPREDNISolone SOD SUCCI 40 MG/ML 1 ML VIAL IV SCH ×2 (07:32→16:12)
[2017-02-08] MEDS: ISOSORBIDE MONONITRATE ER 30 MG TAB.ER.24H PO SCH (07:33)
[2017-02-08] MEDS: LISINOPRIL 20 MG TAB PO SCH (07:33)
[2017-02-08] MEDS: THEOPHYLLINE 24 HOUR 300 MG CAP.ER.24H PO SCH (07:33)
[2017-02-08] MEDS: PANTOPRAZOLE 40 MG TABLET PO SCH (07:33)
[2017-02-08 07:34] LABS: Glucose,Whole Blood 118 mg/dL (75-99)
[2017-02-08] MEDS: ENOXAPARIN 40 MG/0.4 ML SYRINGE SQ SCH (07:35)
[2017-02-08] MEDS ORDERED: FLUCONAZOLE 100 MG TAB PO SCH (09:00)
[2017-02-08] MEDS ORDERED: ALPRAZolam 0.25 MG TAB PO STA (10:13)
[2017-02-08] MEDS ORDERED: PNEUMOCOCCAL VACC-PNEUMOVAX 23 25 MCG/0.5 ML VIAL IM ONE (10:31)
[2017-02-08 12:32] LABS: Glucose,Whole Blood 116 mg/dL (75-99)
--- NOTE | 2017-02-08 12:47 | P.PN ---
Subjective Principal diagnosis: Acute exacerbation of severe end-stage oxygen-dependent chronic obstructive pulmonary disease. This is a very pleasant 71-year-old female patient who follows with Dr. Verena Cummings as her primary care physician. She has a history of hypertension, hyperlipidemia, osteoporosis. She also has a history of severe end-stage oxygen-dependent, steroid-dependent Gold stage III/IV chronic obstructive pulmonary disease. Her most recent FEV1 value is 33% of predicted. She does have a history of chronic tobacco dependence but did quit in 2012. She has multiple admissions for her COPD exacerbation and was most recently discharged on 01/25/2017. She had been doing fairly well since then but did develop increasing shortness of breath, cough and congestion again and re- presented to the emergency room here yesterday. Her CT scan ruled out pulmonary embolism. There was a new right upper lobe consolidation/pneumonia. She is seen today in Patient on the regular medical floor. Presently she is awake and alert in no acute distress. She admits to breathing easier today as compared to yesterday all ready. She's been initiated on ceftriaxone and azithromycin along with DuoNeb inhalations, Symbicort, IV Solu-Medrol. She is maintaining good O2 saturations in the upper 90s on 2 L/m per nasal cannula. She is afebrile. Hemodynamically stable. There is no leukocytosis. Bicarb 31. The patient is seen again today 02/07/2017 in follow-up on the regular medical floor. She is awake and alert in no acute distress. She is breathing slightly better today as compared to yesterday but still not quite back to her baseline. She is still quite dyspneic with minimal exertion. She is maintaining good to O2 saturations up to 100% on 2 L/m per nasal cannula. She's been afebrile. The patient is seen again today 02/08/2017 in follow-up on the regular medical floor. She is awake and alert in no acute distress. She's been up ambulating with assistance. She still is somewhat dyspneic on exertion but back to her baseline. She is maintaining good O2 saturations in the 90s on 2 L/m per nasal cannula. She is anxious to go home. She has been hypertensive this a.m. however. Objective - Vital Signs Vital signs: Vital Signs Temp 97.4 F L 02/08/17 07:00 Pulse 103 H 02/08/17 09:59 Resp 20 02/08/17 07:00 BP 190/80 02/08/17 11:55 Pulse Ox 97 02/08/17 07:00 Intake & Output 02/07/17 02/08/17 02/08/17 18:59 06:59 18:59 Other: Voiding Method Bedside Commode Toilet Toilet Bedside Commode Bedside Commode # Voids 2 1 - Exam GENERAL EXAM: Alert, fairly comfortable in no apparent distress. HEAD: Normocephalic. EYES: Normal reaction of pupils, equal size. NOSE: Clear with pink turbinates. THROAT: No erythema or exudates. NECK: No masses, no JVD. CHEST: No chest wall deformity. LUNGS: Equal air entry with end expiratory wheeze, scattered rhonchi. Diminished throughout. CVS: S1 and S2 normal with no audible murmurs, regular rhythm. ABDOMEN: No hepatosplenomegaly, normal bowel sounds, no guarding or rigidity. SPINE: No scoliosis or deformity SKIN: Multiple areas of ecchymosis secondary to chronic steroid use. CENTRAL NERVOUS SYSTEM: No focal deficits, tone is normal in all 4 extremities. Extremities: There is trace peripheral edema. No clubbing, no cyanosis. Peripheral pulses are intact. - Labs CBC & Chem 7: 02/06/17 07:24 02/06/17 07:24 Labs: Abnormal Lab Results - Last 24 Hours (Table) 02/07/17 02/07/17 02/08/17 Range/Units 17:22 20:33 07:27 POC Glucose (mg/dL) 132 H 154 H 118 H (75-99) mg/dL 02/08/17 Range/Units 12:29 POC Glucose (mg/dL) 116 H (75-99) mg/dL Assessment and Plan Plan: Impression: #1 Acute exacerbation of severe oxygen-dependent, steroid-dependent Gold stage III/IV chronic obstructive pulmonary disease. FEV1 value 33% of predicted. #2 Right upper lobe consolidation, suspect pneumonia, suspect gram-negative. #3 Acute on chronic hypoxic respiratory failure secondary to above. #4 Acute on chronic hypercapnic respiratory failure secondary to above. #5 History of chronic tobacco dependence, quit in 2012. #6 Hypertension. Plan: The patient was seen and evaluated by Dr. Parker. She is back to her baseline as far as her severe oxygen dependent chronic obstructive pulmonary disease is concerned. She has been having issues with hypertension today however. Her medications are being adjusted. If not home today we'll continue to follow. If she is cleared medically for discharge she'll keep her scheduled appointment with Dr. Parker on the 02/15/2017. She is however encouraged to call sooner with any recurrence of symptoms or other questions or concerns.
[2017-02-08 15:28] VITALS: BP 158/82; PULSE 98; RESP 16; TEMP 97.1
--- NOTE | 2017-02-08 19:05 | P.DS ---
Providers Date of admission: 02/05/17 15:51 Expected date of discharge: 02/08/17 Attending physician: Ramiro Lugo Consults: 02/05/17 15:51 Consult Physician Routine Consulting Provider: Misty Parker Consult Reason/Comments: COPD Do you want consulting provider notified?: Yes Primary care physician: [facility] Course: FINAL DIAGNOSES: -Acute severe chronic obstructive pulmonary disease, end-stage, slow to respond. -Acute on chronic hypoxic respiratory failure from above. -Oropharyngeal thrush. -End-stage chronic obstructive pulmonary disease, slow to respond. -Acute on chronic hypoxic respiratory failure. -Pharyngeal candidiasis from steroids. -Essential Hypertension -Anxiety not otherwise specified HOSPTIAL COURSE: 71-year-old female presented with worsening shortness of breath. Had trouble speaking even getting to the bathroom. Admitted for the same. Pulmonology consulted. Nebulized bronchodilators, nebulized steroids, IV steroids all ordered. Chest CTA revealed negative for PE. Chest x-ray revealed pneumonia. IV antibiotics ceftriaxone ordered. Overall condition improved, breathing easier, does require home oxygen but patient had her current baseline of 2 L nasal cannula, ambulatory from the bed to the bathroom with mild shortness of breath. Tolerating her diet eating 100% of her meals, moving her bowels, engaging in activity as she can tolerate with appropriate rest periods or recovery. Patient had 2 episodes of very high blood pressure today, concern for being related to anxiety about going home patient received 0.25 of Xanax which seemed to help. Blood pressure returned to her baseline. Overall condition stabilized and cleared by consultants and primary and is stable for discharge. PHYSICAL EXAM: CARDIOVASCULAR: First and second sounds noted no edema RESPIRATORY: Effort increased, decreased breath sounds prolonged expiration PSYCHIATRY: Alert and oriented 3 mood and affect anxious. Patient was seen and examined by nurse practitioner Hailey Conner in all elements of the case discussed with attending Dr. Lugo DISPOSITION: Home to the care of her family Patient Condition at Discharge: Fair Plan - Discharge Summary New Discharge Prescriptions: New Fluconazole [Diflucan] 100 mg PO DAILY #7 tab Continue Isosorbide Mononitrate ER [Imdur] 30 mg PO DAILY Theophylline 24 Hour [Benigno-24] 300 mg PO DAILY Albuterol Sulfate [Proair Hfa] 2 puff INHALATION RT-Q4H PRN PRN Reason: Shortness Of Breath Or Wheezing Budesonide/Formoterol Fumarate [Symbicort 160-4.5 Mcg Inhaler] 2 puff INHALATION RT-BID Lisinopril [Zestril] 20 mg PO DAILY Ipratropium/Albuterol Sulfate [Combivent Respimat Inhaler] 1 puff INHALATION RT-QID Furosemide [Lasix] 20 mg PO Q48H [place] [id number] [Excedrin] 1 tab PO BID PRN PRN Reason: Headache Polyethylene Glycol 3350 [Miralax] 17 gm PO DAILY PRN PRN Reason: Constipation predniSONE See Taper PO DAILY #30 Changed Ipratropium-Albuterol Nebulize [Duoneb 0.5 mg-3 mg/3 ml Soln] 3 ml INHALATION RT-Q4H #120 Discharge Medication List Albuterol Sulfate [Proair Hfa] 2 puff INHALATION RT-Q4H PRN 10/29/13 [History] Budesonide/Formoterol Fumarate [Symbicort 160-4.5 Mcg Inhaler] 2 puff INHALATION RT-BID 10/29/13 [History] Isosorbide Mononitrate ER [Imdur] 30 mg PO DAILY 10/29/13 [History] Theophylline 24 Hour [Benigno-24] 300 mg PO DAILY 10/29/13 [History] Ipratropium/Albuterol Sulfate [Combivent Respimat Inhaler] 1 puff INHALATION RT- QID 09/23/15 [History] Lisinopril [Zestril] 20 mg PO DAILY 09/23/15 [History] Furosemide [Lasix] 20 mg PO Q48H 12/16/16 [History] [id number]-[id number] [id number] [Excedrin] 1 tab PO BID PRN 01/20/17 [History] Polyethylene Glycol 3350 [Miralax] 17 gm PO DAILY PRN 02/05/17 [History] Fluconazole [Diflucan] 100 mg PO DAILY #7 tab 02/08/17 [Rx] Ipratropium-Albuterol Nebulize [Duoneb 0.5 mg-3 mg/3 ml Soln] 3 ml INHALATION RT -Q4H #120 02/08/17 [Rx] predniSONE See Taper PO DAILY #30 02/08/17 [Rx] Follow up Appointment(s)/Referral(s): Misty Parker MD [STAFF PHYSICIAN] - 02/15/17 9:00 am Gumaro Cummings DO [Primary Care Provider] - 02/15/17 2:15 pm Ambulatory/Diagnostic Orders: Basic Metabolic Panel [LAB.AMB] Location: Determined By Patient Complete Blood Count w/diff [LAB.AMB] Location: Determined By Patient Patient Instructions/Handouts: COPD (Chronic Obstructive Pulmonary Disease) (DC ) Activity/Diet/Wound Care/Special Instructions: Cardiac diet. Limit activity until follow up. Pneumovaccine given today with information sheet 02-08-2017. Discharge Disposition: HOME SELF-CARE
[2017-02-08] MEDS ORDERED: LISINOPRIL 20 MG TAB PO SCH (21:00)
[2017-02-09] MEDS ORDERED: FUROSEMIDE 20 MG TAB PO SCH (09:00)
--- NOTE | 2017-02-10 11:28 | DS ---
DISCHARGE SUMMARY ADDENDUM: ATTENDING NOTE: This patient seen and examined by me. I did discuss this with the nurse practitioner, Ms. Conner. This patient was seen by me yesterday on 02/08/17. Doing better, more comfortable. is present. EXAM: On exam, LUNGS: Decreased breath sounds. CARDIOVASCULAR: First and second sounds normal. Patient is far more calm. Care was discussed in detail with the patient. Questions answered. Overall prognosis is guarded. Discharged home. Follow with pulmonary. Discharge planning more than 35 minutes including discussion. MMODL / IJN: [id number] /
== END 2017-02-08 16:16 | disposition home or self-care (01) | DRG 190 ==
LOC: EC 14:58 → 4MS4W 15:51
PROVIDERS: ADMIT Hospitalist; ATTEND Hospitalist
DX: J44.0 Chronic obstructive pulmonary disease with (acute) lower respiratory infection (principal); J96.21 Acute and chronic respiratory failure with hypoxia; J15.6 Pneumonia due to other Gram-negative bacteria; J96.22 Acute and chronic respiratory failure with hypercapnia; B37.89 Other sites of candidiasis; B37.0 Candidal stomatitis; J44.1 Chronic obstructive pulmonary disease with (acute) exacerbation; E78.5 Hyperlipidemia, unspecified; F41.9 Anxiety disorder, unspecified; I10 Essential (primary) hypertension; M81.0 Age-related osteoporosis without current pathological fracture; T38.0X5A Adverse effect of glucocorticoids and synthetic analogues, initial encounter; Z79.51 Long term (current) use of inhaled steroids; Z79.52 Long term (current) use of systemic steroids; Z79.899 Other long term (current) drug therapy; Z82.49 Family history of ischemic heart disease and other diseases of the circulatory system; Z87.440 Personal history of urinary (tract) infections; Z87.891 Personal history of nicotine dependence; Z99.81 Dependence on supplemental oxygen
CPT/HCPCS: 36415; 71020; 71275; 80048; 80053; 82550; 82553; 83735; 83880; 84484; 85025; 85610; 85730; 90732; 93005; 94640; 94644; 94760; 96365; 96375; 99285

== ENCOUNTER 2017-02-28 15:13 | Inpatient (IN) | payer MEDICARE ==
[2017-02-28] MEDS ORDERED: MAGNESIUM SULFATE-D5W PMX 1 GM in DEXTROSE/WATER 1 100ML.BAG IVPB STA (15:22)
[2017-02-28] MEDS ORDERED: SODIUM CHLORIDE 0.9% 1,000 ML IV STA (15:22)
[2017-02-28] MEDS ORDERED: PROPOFOL 1,000 MG/100 ML VIAL IV ONE (15:23)
--- NOTE | 2017-02-28 15:29 | ED ---
SOB HPI - General Stated Complaint: Difficulty Breathing Time Seen by Provider: 02/28/17 15:13 Source: patient, EMS, RN notes reviewed, old records reviewed Mode of arrival: EMS - History of Present Illness Initial Comments: This is a 70-year-old female history of COPD who started developing severe shortness of breath around 11 to 11:30 this morning. He was brought in by EMS after her home treatments failed. She did get 125 of Solu-Medrol IV push she received a neb last treatment in route respiratory rate did improve from 40/m to the 20s. Patient arrived and was still very severely dyspneic. When asked if she would like to be placed on a ventilator she did indicate yes. MD Complaint: shortness of breath - Related Data Home Medications Medication Instructions Recorded Confirmed Albuterol Sulfate [Proair Hfa] 2 puff INHALATION RT-Q4H PRN 10/29/13 02/05/17 Budesonide/Formoterol Fumarate 2 puff INHALATION RT-BID 10/29/13 02/05/17 [Symbicort 160-4.5 Mcg Inhaler] Isosorbide Mononitrate ER [Imdur] 30 mg PO DAILY 10/29/13 02/05/17 Theophylline 24 Hour [Benigno-24] 300 mg PO DAILY 10/29/13 02/05/17 Ipratropium/Albuterol Sulfate 1 puff INHALATION RT-QID 09/23/15 02/05/17 [Combivent Respimat Inhaler] Lisinopril [Zestril] 20 mg PO DAILY 09/23/15 02/05/17 Furosemide [Lasix] 20 mg PO Q48H 12/16/16 02/05/17 Ktzsdvc-Hkej-Gist [id number] 1 tab PO BID PRN 01/20/17 02/05/17 [Excedrin] Polyethylene Glycol 3350 [Miralax] 17 gm PO DAILY PRN 02/05/17 02/05/17 Previous Rx's Medication Instructions Recorded Fluconazole [Diflucan] 100 mg PO DAILY #7 tab 02/08/17 Ipratropium-Albuterol Nebulize 3 ml INHALATION RT-Q4H #120 02/08/17 [Duoneb 0.5 mg-3 mg/3 ml Soln] predniSONE See Taper PO DAILY #30 02/08/17 Allergies Allergy/AdvReac Type Severity Reaction Status Date / Time alendronate sodium Allergy Swelling Verified 02/28/17 15:58 [From Fosamax] Latex, Natural Rubber Allergy Rash/Hives Verified 02/28/17 15:58 levofloxacin [From Levaquin] AdvReac Diarrhea Verified 02/28/17 15:58 Review of Systems ROS Statement: Those systems with pertinent positive or pertinent negative responses have been documented in the HPI. ROS Other: All systems not noted in ROS Statement are negative. Past Medical History Past Medical History: COPD, Hypertension, Pneumonia, Respiratory Disorder Additional Past Medical History / Comment(s): readmit with COPD and SOB. COPD, advanced, oxygen and steroid dependent, chronic hypoxic and hypercapnic respiratory failure, acute on chronic hypercapnic respiratory failure, previous UTI, hyponatremia, migraines but none for years, hepatitis A as a child , hemorrhoids, osteoporosis, hypertension, hyperlipidemia History of Any Multi-Drug Resistant Organisms: None Reported Past Surgical History: Tubal Ligation Past Anesthesia/Blood Transfusion Reactions: No Reported Reaction Additional Past Anesthesia/Blood Transfusion Reaction / Comment(s): Pt has never recieved blood. Past Psychological History: No Psychological Hx Reported Additional Psychological History / Comment(s): Pt's daughter (Lisa) lives with her. Pt is O2 dependent at 2L/NC. She uses a seated walker if she is feeling weak. 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 She performs her own ADLs. She manages her own medications. Smoking Status: Former smoker Past Alcohol Use History: None Reported Additional Past Alcohol Use History / Comment(s): Pt started smoking in 1962 and quit in 2012 Past Drug Use History: None Reported - Past Family History Father History Unknown: Yes Family Medical History: No Reported History Mother Family Medical History: Coronary Artery Disease (CAD), Myocardial Infarction ([place] ) Additional Family Medical History / Comment(s): Mother had CABG General Exam - General Exam Comments Initial Comments: This is a well-developed asthenic appearing female who is in acute respiratory distress Limitations: physical limitation General appearance: anxious, in distress Head exam: Present: atraumatic, normocephalic, normal inspection Eye exam: Present: normal appearance, PERRL, EOMI. Absent: scleral icterus, conjunctival injection, periorbital swelling ENT exam: Present: other (oropharynx is clear there are appliances in the upper and lower teeth which were removed) Neck exam: Present: normal inspection. Absent: tenderness, meningismus, lymphadenopathy Respiratory exam: Present: respiratory distress, accessory muscle use, decreased breath sounds Cardiovascular Exam: Present: tachycardia GI/Abdominal exam: Present: soft, normal bowel sounds. Absent: distended, tenderness, guarding, rebound, rigid Rectal exam: Present: deferred Extremities exam: Present: full ROM, normal capillary refill, other (Skin tears are noted on the right upper extremity) Back exam: Present: normal inspection Neurological exam: Present: alert, oriented X3, CN II-XII intact. Absent: motor sensory deficit Psychiatric exam: Present: anxious Skin exam: Present: warm, dry. Absent: intact Course Vital Signs 02/28/17 02/28/17 02/28/17 15:17 15:25 15:30 Temperature 97.4 F L Pulse Rate 138 H 136 H Pulse Rate [ 140 H Apical] Respiratory 32 H 36 H Rate Blood Pressure 213/125 210/118 O2 Sat by Pulse 97 98 Oximetry 02/28/17 02/28/17 02/28/17 15:40 15:50 16:00 Temperature Pulse Rate 134 H 112 H 124 H Pulse Rate [ Apical] Respiratory 34 H 28 H 24 Rate Blood Pressure 198/98 108/57 135/82 O2 Sat by Pulse 98 98 98 Oximetry 02/28/17 02/28/17 16:14 16:20 Temperature Pulse Rate 117 H 118 H Pulse Rate [ Apical] Respiratory 24 24 Rate Blood Pressure 83/52 107/56 O2 Sat by Pulse 100 99 Oximetry - Reevaluation(s) Reevaluation #1: 02/28/17 15:35 I did review the x-ray that ET tube is above the kiera at 22 cm will be withdrawn another centimeter to 21. This is to ensure adequate placement. There was good color change on the colorimeter also. Reevaluation #2: 02/28/17 16:33 Patient was having difficulty with propofol blood pressure. She will be given Ativan. Procedures - Intubation Time Out Performed: No (Constant bedside attention) Sedative: Versed Paralytic: Succinylcholine Mg Given: 100 Laryngoscope: Leyva Size: 3 ET Tube Size: 7.5 ET Tube Uncuffed: No (Cuff tube) Tube Secured Depth (cm): 21 Tube Secured Location: lips Tube Placement Confirmation: visualized tube passing through cords Patient Tolerated Procedure: no complications Intubation Complications: none Medical Decision Making - Medical Decision Making I did discuss findings with the patient's family as well as with Dr. Keith scott and the hospitalist patient will be admitted ICU. - Lab Data Result diagrams: 02/28/17 15:38 02/28/17 15:38 Lab Results 02/28/17 02/28/17 02/28/17 Range/Units 15:38 15:38 15:38 WBC 12.1 H (3.8-10.6) k/uL RBC 4.14 (3.80-5.40) m/uL Hgb 13.5 (11.4-16.0) gm/dL Hct 42.5 (34.0-46.0) % MCV 102.5 H (80.0-100.0) fL MCH 32.6 (25.0-35.0) pg MCHC 31.8 (31.0-37.0) g/dL RDW 15.5 (11.5-15.5) % Plt Count 363 (150-450) k/uL Neutrophils % 73 % Lymphocytes % 18 % Monocytes % 5 % Eosinophils % 0 % Basophils % 1 % Neutrophils # 8.8 H (1.3-7.7) k/uL Lymphocytes # 2.2 (1.0-4.8) k/uL Monocytes # 0.6 (0-1.0) k/uL Eosinophils # 0.1 (0-0.7) k/uL Basophils # 0.1 (0-0.2) k/uL Macrocytosis Slight PT (9.0-12.0) sec INR (<1.2) APTT (22.0-30.0) sec D-Dimer (<0.60) mg/L FEU Sodium 140 (137-145) mmol/L Potassium 5.2 H (3.5-5.1) mmol/L Chloride 97 L (98-107) mmol/L Carbon Dioxide 33 H (22-30) mmol/L Anion Gap 10 mmol/L BUN 23 H (7-17) mg/dL Creatinine 1.16 H (0.52-1.04) mg/dL Est GFR (MDRD) Af Amer 56 (>60 ml/min/1.73 sqM) Est GFR (MDRD) Non-Af 46 (>60 ml/min/1.73 sqM) Glucose 180 H (74-99) mg/dL Calcium 9.1 (8.4-10.2) mg/dL Magnesium 1.7 (1.6-2.3) mg/dL Total Bilirubin 0.3 (0.2-1.3) mg/dL AST 28 (14-36) U/L ALT 35 (9-52) U/L Alkaline Phosphatase 64 (38-126) U/L Total Creatine Kinase 62 (30-135) U/L CK-MB (CK-2) 3.0 H* (0.0-2.4) ng/mL CK-MB (CK-2) Rel Index 4.8 Troponin I <0.012 (0.000-0.034) ng/mL NT-Pro-B Natriuret Pep pg/mL Total Protein 7.3 (6.3-8.2) g/dL Albumin 4.3 (3.5-5.0) g/dL 02/28/17 02/28/17 Range/Units 15:38 15:38 WBC (3.8-10.6) k/uL RBC (3.80-5.40) m/uL Hgb (11.4-16.0) gm/dL Hct (34.0-46.0) % MCV (80.0-100.0) fL MCH (25.0-35.0) pg MCHC (31.0-37.0) g/dL RDW (11.5-15.5) % Plt Count (150-450) k/uL Neutrophils % % Lymphocytes % % Monocytes % % Eosinophils % % Basophils % % Neutrophils # (1.3-7.7) k/uL Lymphocytes # (1.0-4.8) k/uL Monocytes # (0-1.0) k/uL Eosinophils # (0-0.7) k/uL Basophils # (0-0.2) k/uL Macrocytosis PT 10.1 (9.0-12.0) sec INR 1.0 (<1.2) APTT 20.4 L (22.0-30.0) sec D-Dimer 1.11 H (<0.60) mg/L FEU Sodium (137-145) mmol/L Potassium (3.5-5.1) mmol/L Chloride (98-107) mmol/L Carbon Dioxide (22-30) mmol/L Anion Gap mmol/L BUN (7-17) mg/dL Creatinine (0.52-1.04) mg/dL Est GFR (MDRD) Af Amer (>60 ml/min/1.73 sqM) Est GFR (MDRD) Non-Af (>60 ml/min/1.73 sqM) Glucose (74-99) mg/dL Calcium (8.4-10.2) mg/dL Magnesium (1.6-2.3) mg/dL Total Bilirubin (0.2-1.3) mg/dL AST (14-36) U/L ALT (9-52) U/L Alkaline Phosphatase (38-126) U/L Total Creatine Kinase (30-135) U/L CK-MB (CK-2) (0.0-2.4) ng/mL CK-MB (CK-2) Rel Index Troponin I (0.000-0.034) ng/mL NT-Pro-B Natriuret Pep 641 pg/mL Total Protein (6.3-8.2) g/dL Albumin (3.5-5.0) g/dL - EKG Data -: EKG Interpreted by Sd EKG shows normal: sinus rhythm (Sinus tachycardia rate 134. Interval 140 QRS 68 daily since QTC of 300/[address] configuration) - Radiology Data Radiology results: report reviewed (Review the x-ray shows the ventricular to the being good position.), image reviewed Critical Care Time Critical Care Time: Yes Critical Care Time: 47 minutes of critical care time which does not include the intubation. This did include the monitoring the EMS run and discussed with paramedics history physical labs x-rays reevaluation the patient multiple occasions. Discussed with the patient family and admitting physician. Admission orders and documentation of the above Disposition Clinical Impression: Adult respiratory distress syndrome, Acute exacerbation of chronic obstructive airways disease, Acute respiratory failure Disposition: ADMITTED IP TO THIS [facility] Condition: Critical Referrals: Gumaro Cummings DO [Primary Care Provider] - 1-2 days
--- NOTE | 2017-02-28 15:45 | XR ---
EXAMINATION TYPE: XR chest 1V portable DATE OF EXAM: 02/28/2017 Comparison: 02/05/2017 Clinical History: 71-year-old female ET tube placement Findings: ET tube tip approximately 2.1 cm from the kiera. NG tube tip is at the level of the GE junction. The tube could be advanced by approximately 9 cm further into the stomach. Heart is normal size. Atherosclerotic arch calcifications. Leftward patient rotation. Hyperinflation with interstitial prominence and biapical pleural parenchymal scarring. Some focal peripheral right u pper lung opacity. Impression: 1. Marked emphysema with focal infiltrate at the peripheral right upper to midlung which could repres ent pneumonia. 2. ET tube tip 2.1 cm from the kiera, satisfactory. 3. NG tube tip at the GE junction. This could be advanced by 9 cm into the stomach.
[2017-02-28] MEDS ORDERED: SUCCINYLCHOLINE CHLORIDE VIAL 200 MG/10 ML VIAL IV STA (15:49)
[2017-02-28] MEDS ORDERED: LORazepam 2 MG/ML INJ IV STA (15:49)
[2017-02-28] MEDS ORDERED: MIDAZOLAM (PF) 1 MG/ML 5 ML VIAL IV STA (15:49)
[2017-02-28 15:52] LABS: Basophils # (A) 0.1 k/uL (0-0.2); Basophils % (A) 1 %; CH 31.9; CHCM 31.2; Eosinophils # (A) 0.1 k/uL (0-0.7); Eosinophils % (A) 0 %; HCT 42.5 % (34.0-46.0); HDW 2.39; HGB 13.5 gm/dL (11.4-16.0); Luc # (Auto) 0.32; Luc % (Auto) 3; Lymphocytes # (A) 2.2 k/uL (1.0-4.8); Lymphocytes % (A) 18 %; MCH 32.6 pg (25.0-35.0); MCHC 31.8 g/dL (31.0-37.0); MCV 102.5 fL (80.0-100.0); Macrocytosis Slight; Mean Platelet Volume 8.3; Monocytes # (A) 0.6 k/uL (0-1.0); Monocytes % (A) 5 %; Neutrophils # (A) 8.8 k/uL (1.3-7.7); Neutrophils % (A) 73 %; RBC 4.14 m/uL (3.80-5.40); RDW 15.5 % (11.5-15.5); WBC 12.1 k/uL (3.8-10.6); WBC (Perox) 11.84
[2017-02-28 16:02] LABS: Calcium 9.1 mg/dL (8.4-10.2); Magnesium 1.7 mg/dL (1.6-2.3); Potassium 5.2 mmol/L (3.5-5.1); Total Bilirubin 0.3 mg/dL (0.2-1.3); Total Protein 7.3 g/dL (6.3-8.2)
[2017-02-28 16:06] LABS: Creatine Kinase 62 U/L (30-135)
[2017-02-28 16:19] LABS: Partial Thromboplastin Time 20.4 sec (22.0-30.0); Prothrombin Time 10.1 sec (9.0-12.0); Troponin I <0.012 ng/mL (0.000-0.034)
[2017-02-28] MEDS ORDERED: NALOXONE 0.4 MG/ML 1 ML VIAL IV PRN (16:37)
--- NOTE | 2017-02-28 17:03 | P.CNPUL ---
History of Present Illness Consult date: 02/28/17 Requesting physician: Clem Delgado Reason for consult: dyspnea, COPD, hypoxemia, pneumonia, other (Respiratory failure) Chief complaint: Shortness of breath History of present illness: This is a 71-year-old female with history of severe end-stage COPD, O2 dependent , prednisone dependent, patient was recently admitted in the last year at least half dozen times with symptoms of acute COPD exacerbation. Patient was actually discharged home on 02/09/2017 after 5 days of hospitalization for acute exacerbation of COPD. Patient was also earlier admitted on 01/13/2017, and discharged on 01/25/2017. Over the last one year, patient has been experiencing intermittent episodes of COPD exacerbation, and she had multiple admissions. Today, the patient developed severe shortness of breath around 11:30 AM, and she was brought in by EMS after trying home treatment with nebulized medications , and she was not getting any better. Upon arrival the patient was in extreme respiratory distress, did not do well on CPAP or BiPAP, hence the patient was intubated by the ER physician shortly after she arrived to the ER. I went down and saw the patient in the ER, and discussed her condition with the family. Clearly the patient presented with a acute hypoxic respiratory failure secondary to COPD exacerbation, and she was noted to have a very limited infiltrate at the periphery of the right upper lobe may represent pneumonia. According to the family patient has been compliant with her meds on a regular basis. And has been taking her prednisone as directed. Labs from the ER were reviewed including a normal CBC. Normal basic metabolic profile. And relatively normal renal profile. Not much history could be obtained from the patient herself as she was noted to be on propofol drip, sedated, and on mechanical ventilation. Endotracheal tube was addressed and moved about 2 cm proximally. Review of Systems Review of systems cannot be obtained, patient is on mechanical ventilation, she has an endotracheal tube in place, and according to the daughter her mother has always been complaining of mostly shortness of breath cough and wheezing. Not much else is known. And according to the daughter CODE STATUS was never discussed with the family. Past Medical History Past Medical History: COPD, Hypertension, Pneumonia, Respiratory Disorder Additional Past Medical History / Comment(s): readmit with COPD and SOB. COPD, advanced, oxygen and steroid dependent, chronic hypoxic and hypercapnic respiratory failure, acute on chronic hypercapnic respiratory failure, previous UTI, hyponatremia, migraines but none for years, hepatitis A as a child , hemorrhoids, osteoporosis, hypertension, hyperlipidemia History of Any Multi-Drug Resistant Organisms: None Reported Past Surgical History: Tubal Ligation Past Anesthesia/Blood Transfusion Reactions: No Reported Reaction Additional Past Anesthesia/Blood Transfusion Reaction / Comment(s): Pt has never recieved blood. Past Psychological History: No Psychological Hx Reported Additional Psychological History / Comment(s): Pt's daughter (Lisa) lives with her. Pt is O2 dependent at 2L/NC. She uses a seated walker if she is feeling weak. 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 She performs her own ADLs. She manages her own medications. Smoking Status: Former smoker Past Alcohol Use History: None Reported Additional Past Alcohol Use History / Comment(s): Pt started smoking in 1962 and quit in 2012 Past Drug Use History: None Reported - Past Family History Father History Unknown: Yes Family Medical History: No Reported History Mother Family Medical History: Coronary Artery Disease (CAD), Myocardial Infarction ([place] ) Additional Family Medical History / Comment(s): Mother had CABG Medications and Allergies Home Medications Medication Instructions Recorded Confirmed Type Albuterol Sulfate [Proair Hfa] 2 puff INHALATION RT-Q4H PRN 10/29/13 02/05/17 History Budesonide/Formoterol Fumarate 2 puff INHALATION RT-BID 10/29/13 02/05/17 History [Symbicort 160-4.5 Mcg Inhaler] Isosorbide Mononitrate ER [Imdur] 30 mg PO DAILY 10/29/13 02/05/17 History Theophylline 24 Hour [Benigno-24] 300 mg PO DAILY 10/29/13 02/05/17 History Ipratropium/Albuterol Sulfate 1 puff INHALATION RT-QID 09/23/15 02/05/17 History [Combivent Respimat Inhaler] Lisinopril [Zestril] 20 mg PO DAILY 09/23/15 02/05/17 History Furosemide [Lasix] 20 mg PO Q48H 12/16/16 02/05/17 History Ovflbfk-Micd-Ugjg [id number] 1 tab PO BID PRN 01/20/17 02/05/17 History [Excedrin] Polyethylene Glycol 3350 [Miralax] 17 gm PO DAILY PRN 02/05/17 02/05/17 History Fluconazole [Diflucan] 100 mg PO DAILY #7 tab 02/08/17 Rx Ipratropium-Albuterol Nebulize 3 ml INHALATION RT-Q4H #120 02/08/17 Rx [Duoneb 0.5 mg-3 mg/3 ml Soln] predniSONE See Taper PO DAILY #30 02/08/17 Rx Allergies Allergy/AdvReac Type Severity Reaction Status Date / Time alendronate sodium Allergy Swelling Verified 02/28/17 15:58 [From Fosamax] Latex, Natural Rubber Allergy Rash/Hives Verified 02/28/17 15:58 levofloxacin [From Levaquin] AdvReac Diarrhea Verified 02/28/17 15:58 Physical Exam Vitals: Vital Signs Temp Pulse Pulse Resp BP Pulse Ox 02/28/17 16:36 97.4 F L 118 H 28 H 118/58 98 02/28/17 16:20 118 H 24 107/56 99 02/28/17 16:14 117 H 24 83/52 100 02/28/17 16:00 124 H 24 135/82 98 02/28/17 15:50 112 H 28 H 108/57 98 02/28/17 15:40 134 H 34 H 198/98 98 02/28/17 15:30 136 H 36 H 210/118 98 02/28/17 15:25 140 H 02/28/17 15:17 97.4 F L 138 H 32 H 213/125 97 Intake and Output 02/28/17 02/28/17 02/28/17 06:59 14:59 22:59 Intake Total 31.644 Balance 31.644 Intake: IV 20 Invasive Line 1 20 Intake, IV Titration 11.644 Amount Propofol 1,000 mg In 100 11.644 ml @ Titrate IV .Q0M ONE Rx#:[id number] Other: Weight 53 kg Patient Weight 03/01/17 06:59 Weight 53 kg his is a well-developed asthenic appearing female on mechanical ventilation, sedated, on propofol drip. General appearance: anxious, when aroused, endotracheal tube noted to be in place, patient gets intermittent episodes of agitation while on mechanical ventilation. Head exam: atraumatic, normocephalic, Eye exam: PERRLA, EOMI, no icterus, slightly pale. ENT exam: Moist mucous membranes, normal nasal mucosa, throat is clear, endotracheal tube seems to be intact. Neck exam: No neck masses, no JVD, no thyromegaly, no stridor. Respiratory exam: Diffuse rhonchi and wheezes noted bilaterally, no chest wall tenderness, symmetrical expansion bilaterally noted. Cardiovascular Exam: Normal S1 and S2, no S3 gallop, no murmur. GI/Abdominal exam: Soft nontender no megaly no rebound no guarding, positive bowel sounds. Rectal exam: deferred Extremities exam: Present: full ROM, normal capillary refill, other (Skin tears are noted on the right upper extremity) Neurological exam: Cannot be assessed, patient is fully sedated intermittently noted to be anxious when aroused. Psychiatric exam: Cannot be assessed Skin exam: Multiple areas of ecchymosis noted on both upper and lower extremities, and areas of blistering noted in the left foot medial aspect. Results - Laboratory Findings CBC and BMP: 02/28/17 15:38 02/28/17 15:38 PT/INR, D-dimer PT 10.1 sec (9.0-12.0) 02/28/17 15:38 INR 1.0 (<1.2) 02/28/17 15:38 D-Dimer 1.11 mg/L FEU (<0.60) H 02/28/17 15:38 Abnormal lab findings: Abnormal Labs 02/28/17 02/28/17 02/28/17 15:38 15:38 15:38 WBC 12.1 H MCV 102.5 H Neutrophils # 8.8 H APTT D-Dimer Potassium 5.2 H Chloride 97 L Carbon Dioxide 33 H BUN 23 H Creatinine 1.16 H Glucose 180 H CK-MB (CK-2) 3.0 H* 02/28/17 15:38 WBC MCV Neutrophils # APTT 20.4 L D-Dimer 1.11 H Potassium Chloride Carbon Dioxide BUN Creatinine Glucose CK-MB (CK-2) - Diagnostic Findings Chest x-ray: image reviewed (Possible limited infiltrate noted in the right upper lobe) Assessment and Plan Plan: Impression: 1 acute hypoxic and hypercapnic respiratory failure secondary to acute exacerbation of COPD and possible right upper lobe pneumonia. 2 acute right upper lobe pneumonia possibly hospital-acquired considering the patient has been in and out of the hospital quite frequently in the last few months. 3 history of chronic tobacco dependence, quit in 2013. 4 history of benign essential hypertension. 5 history of hyperlipidemia. 6 history of osteoporosis 7 advanced COPD FEV1 is 33% of the predicted. Recommendation: Patient will be kept on mechanical ventilation, started on bronchodilators including DuoNeb, Pulmicort, IV hydrocortisone since the patient is normally on prednisone maintenance, patient will be on GI and DVT prophylaxis, we'll address nutritional support we will address antibiotics, started the patient on Zosyn empirically. Discussed her condition with family at bedside. Overall prognosis is definitely poor and guarded. We'll continue to follow. Time with Patient: Greater than 30
[2017-02-28 17:33] LABS: Glucose,Whole Blood 121 mg/dL (75-99)
[2017-02-28] MEDS: PIPERACILLIN-TAZOBACTAM 3.375 GM in DEXTROSE/WATER 1 50ML.BAG IVPB SCH (17:42)
[2017-02-28] MEDS: SODIUM CHLORIDE 0.9% 1,000 ML IV SCH (17:42)
[2017-02-28] MEDS ORDERED: methylPREDNISolone SOD SUCCI 125 MG/2 ML VIAL IV SCH (18:00)
[2017-02-28 18:29] LABS: ABG HCO3 31 mmol/L (21-25); ABG PCO2 49 mmHg (35-45); ABG PH 7.41 (7.35-7.45); ABG PO2 224 mmHg (83-108); ABG TCO2 32 mmol/L (19-24)
[2017-02-28] MEDS: PANTOPRAZOLE 40 MG/10 ML VIAL IVP SCH (18:44)
--- NOTE | 2017-02-28 19:40 | HP ---
HISTORY AND PHYSICAL DATE OF ADMISSION: 02/28/2017 CHIEF COMPLAINT: Shortness of breath and cough. HISTORY: This 71-year-old woman with a past medical history of COPD, history of shortness of breath history of chronic hypoxic respiratory failure being followed by Dr. Cummings in the outpatient setting, recently admitted COPD acute exacerbation. The patient came to [facility] again with increasing shortness of breath. The EMS brought the patient to [facility]. Her respiratory rate was up to 40s and the patient was severely dyspneic and unable to tolerate BiPAP or CPAP. Dr. Parker evaluated the patient and recommended intubation. The patient was intubated and admitted for further evaluation and treatment. The chest x-ray showed no obvious pneumonia. Currently the patient is a intubated and mechanically ventilated in ICU. Most of the history was taken by my discussion with the ER physician as well as review of chart and discussing with staff. The chest x-ray did show right upper lobe pneumonia and possibility of pneumonia at this time. The patient is started on broad spectrum IV antibiotics. PAST MEDICAL HISTORY: History of COPD, history of pneumonia, hypertension, history of nicotine dependence. MEDICATIONS: Prior to admission include: 1. Prednisone taper. 2. Theophylline 24, 300 mg daily. 3. MiraLAX 17 g. 4. Zestril 20 mg daily. 5. Imdur 30 mg. 6. Combivent 1 puff q.i.d. 7. DuoNeb q.i.d. q.4. 8. Lasix 20 mg q.4. 9. Diflucan 100 mg daily. 11.Excedrin 1 tab p.o. daily p.r.n. ALLERGIES: FOSAMAX, LEVAQUIN. FAMILY HISTORY, SOCIAL HISTORY AND REVIEW OF SYSTEMS: Could not be taken at length because the patient mechanically intubated and sedated. Mother had CABG per chart. Previous history of smoking per chart. PHYSICAL EXAM: Mechanically intubated and sedated. Pulse is 78, blood pressure 118/50, respiratory 28, temperature 97.4, pulse ox 98% on ventilation. Vent settings are noted, 400 tidal volume, 50% FiO2. 5 of PEEP. HEENT: Conjunctivae normal. Oral mucosa moist. NECK: No jugular venous distention. No carotid bruit. No lymph node enlarged. CARDIAC: S1/S2 muffled. RESPIRATORY: Diminished breath sounds especially at the bases. Bilateral scattered rhonchi and crackles. Expiratory wheezing also present. ABDOMEN: Soft. Mild diffuse distention present. LEGS: No edema, no cyanosis. NERVOUS SYSTEM: Patient mechanically sedated. SKIN: Normal rash. LYMPHATICS: No lymph node palpable in neck or axilla. LABS: WBC 12.1, hemoglobin is 13.5. Otherwise D-dimer is 1.1. Potassium 5.2, creatinine 1.16. The chest x-ray is personally reviewed by me, showed right upper lobe pneumonia. ASSESSMENT: 1. Chronic obstructive pulmonary disease acute exacerbation with right upper lobe pneumonia with acute hypoxic hypercarbic respiratory failure, possibly hospital- acquired pneumonia. 2. History of pneumonia. 3. History of hypertension. 4. History of chronic hypoxic respiratory failure. 5. Hyponatremia. 6. History of nicotine dependence. 7. Mild hyperkalemia. 8. FULL CODE. RECOMMENDATIONS AND DISCUSSION: In this 71-year-old woman who presented with multiple complex medical issues, will monitor the patient closely, continue the current medication, continue the current management. Will continue with bronchodilators and steroids as initiated and Dr. Parker has initiated IV Zosyn at this time. Mechanical ventilation. The prognosis is guarded because of the multiple medical issues and I would also recommend proton pump inhibitors and DVT prophylaxis. Otherwise, repeat labs also ordered including chest x- ray to evaluate for the pneumonia as well. Further recommendation: Old chart reviewed and discussed with staff. MMRAEGANL / FABYN: [id number] / [id number]
[2017-02-28] MEDS: BUDESONIDE 0.5 MG/2 ML NEBU INHALATION SCH (19:56)
[2017-02-28] MEDS: IPRATROPIUM-ALBUTEROL 3 ML NEB INHALATION SCH ×2 (19:57→23:09)
[2017-02-28] MEDS: PROPOFOL 1,000 MG/100 ML VIAL IV SCH (20:30)
[2017-02-28] MEDS: HYDROCORTISONE SUCCINATE 100 MG/2 ML VIAL IV SCH (22:41)
[2017-02-28] MEDS: HEPARIN SODIUM,PORCINE 5,000 UNIT/ML 1 ML VIAL SQ SCH (23:41)
[2017-02-28] MEDS: INSULIN LISPRO (humaLOG) 300 UNIT/3 ML VIAL SQ SCH (23:43)
[2017-02-28 23:45] LABS: Glucose,Whole Blood 121 mg/dL (75-99)
[2017-03-01] MEDS: PIPERACILLIN-TAZOBACTAM 3.375 GM in DEXTROSE/WATER 1 50ML.BAG IVPB SCH ×3 (01:30→17:07)
[2017-03-01] MEDS ORDERED: HYDROmorphone 1 MG/ML 1 ML SYRINGE IVP PRN (01:42)
[2017-03-01] MEDS: IPRATROPIUM-ALBUTEROL 3 ML NEB INHALATION SCH ×8 (03:46→23:24)
[2017-03-01 05:15] LABS: Anisocytosis Slight; Basophils % (A) 0 %; CH 32.3; CHCM 32.1; Eosinophils % (A) 0 %; HCT 34.7 % (34.0-46.0); HGB 10.8 gm/dL (11.4-16.0); Luc # (Auto) 0.06; Luc % (Auto) 1; Lymphocytes # (A) 0.8 k/uL (1.0-4.8); Lymphocytes % (A) 8 %; MCH 31.6 pg (25.0-35.0); MCHC 31.2 g/dL (31.0-37.0); MCV 101.3 fL (80.0-100.0); Macrocytosis Slight; Mean Platelet Volume 8.7; Monocytes # (A) 0.5 k/uL (0-1.0); Monocytes % (A) 5 %; Neutrophils # (A) 8.2 k/uL (1.3-7.7); Neutrophils % (A) 86 %; RBC 3.43 m/uL (3.80-5.40); RDW 16.2 % (11.5-15.5); WBC 9.5 k/uL (3.8-10.6); WBC (Perox) 10.09
[2017-03-01 05:26] LABS: Anion Gap 7 mmol/L; Blood Urea Nitrogen 20 mg/dL (7-17); Calcium 8.6 mg/dL (8.4-10.2); Carbon Dioxide 27 mmol/L (22-30); Chloride 105 mmol/L (98-107); Glucose 118 mg/dL (74-99); Non-African American GFR(MDRD) >60 (>60 ml/min/1.73 sqM); Potassium 4.3 mmol/L (3.5-5.1); Sodium 139 mmol/L (137-145)
[2017-03-01] MEDS: PROPOFOL 1,000 MG/100 ML VIAL IV SCH (05:41)
[2017-03-01] MEDS: SODIUM CHLORIDE 0.9% 1,000 ML IV SCH ×3 (06:16→18:39)
[2017-03-01] MEDS: INSULIN LISPRO (humaLOG) 300 UNIT/3 ML VIAL SQ SCH ×3 (06:16→18:38)
[2017-03-01 06:17] LABS: Glucose,Whole Blood 118 mg/dL (75-99)
[2017-03-01] MEDS ORDERED: BENZOCAINE SPRAY 1 SPRAY CAN ONE (07:12)
[2017-03-01] MEDS ORDERED: SODIUM CHLORIDE 0.9% 500 ML IV ONE (07:15)
[2017-03-01] MEDS: BUDESONIDE 0.5 MG/2 ML NEBU INHALATION SCH ×2 (07:16→19:19)
[2017-03-01 07:54] LABS: Hemoglobin A1C 6.1 % (4.2-6.1)
[2017-03-01 08:07] LABS: ABG Base Excess 2.2 mmol/L; ABG HCO3 26 mmol/L (21-25); ABG Oxygen Saturation 98.3 % (94-97); ABG PCO2 40 mmHg (35-45); ABG PH 7.43 (7.35-7.45); ABG PO2 106 mmHg (83-108); ABG TCO2 27 mmol/L (19-24)
--- NOTE | 2017-03-01 08:12 | XR ---
EXAMINATION TYPE: XR chest 1V portable DATE OF EXAM: 03/01/2017 COMPARISON: 02/05/2017 and 02/28/2017 HISTORY: COPD TECHNIQUE: Single frontal view of the chest is obtained. FINDINGS: Endotracheal tube and enteric tubes are unchanged in position. Peripheral right upper lung airspace disease is improved in comparison to the prior exam and seen on the CTA chest dated 7 favored to represent pneumonia. Remainder the lungs are well aerated. Cardiomediastinal silhouette is within normal limits. Pulmonary hyperinflation remains as well as biapical lucency related to unde rlying COPD. IMPRESSION: Vague patchy right peripheral opacity has improved in the interim and may represent the resolving pneumonia seen on the prior CT.
[2017-03-01] MEDS: HEPARIN SODIUM,PORCINE 5,000 UNIT/ML 1 ML VIAL SQ SCH ×2 (08:18→17:08)
[2017-03-01] MEDS: HYDROCORTISONE SUCCINATE 100 MG/2 ML VIAL IV SCH ×2 (08:25→22:36)
[2017-03-01] MEDS: CHLORHEXIDINE GLUCONATE 15 ML CUP MUCOUS MEM SCH ×2 (08:28→20:01)
[2017-03-01] MEDS: PANTOPRAZOLE 40 MG/10 ML VIAL IVP SCH (09:35)
[2017-03-01 12:29] LABS: Glucose,Whole Blood 102 mg/dL (75-99)
[2017-03-01 13:05] LABS: Glucose,Whole Blood 98 mg/dL (75-99)
[2017-03-01] MEDS ORDERED: BENZOCAINE SPRAY 1 SPRAY CAN MUCOUS MEM PRN (14:26)
--- NOTE | 2017-03-01 16:19 | P.PN ---
Subjective Principal diagnosis: Acute hypoxic and hypercapnic respiratory failure secondary to COPD exacerbation. This is a 71-year-old female with history of severe end-stage COPD, O2 dependent , prednisone dependent, patient was recently admitted in the last year at least half dozen times with symptoms of acute COPD exacerbation. Patient was actually discharged home on 02/09/2017 after 5 days of hospitalization for acute exacerbation of COPD. Patient was also earlier admitted on 01/13/2017, and discharged on 01/25/2017. Over the last one year, patient has been experiencing intermittent episodes of COPD exacerbation, and she had multiple admissions. Today, the patient developed severe shortness of breath around 11:30 AM, and she was brought in by EMS after trying home treatment with nebulized medications , and she was not getting any better. Upon arrival the patient was in extreme respiratory distress, did not do well on CPAP or BiPAP, hence the patient was intubated by the ER physician shortly after she arrived to the ER. I went down and saw the patient in the ER, and discussed her condition with the family. Clearly the patient presented with a acute hypoxic respiratory failure secondary to COPD exacerbation, and she was noted to have a very limited infiltrate at the periphery of the right upper lobe may represent pneumonia. According to the family patient has been compliant with her meds on a regular basis. And has been taking her prednisone as directed. Labs from the ER were reviewed including a normal CBC. Normal basic metabolic profile. And relatively normal renal profile. Not much history could be obtained from the patient herself as she was noted to be on propofol drip, sedated, and on mechanical ventilation. Endotracheal tube was addressed and moved about 2 cm proximally. Patient was reevaluated today on 03/01/2017, she was on mechanical ventilation overnight, she was also on propofol drip, and was receiving Dilaudid intermittently. Did relatively well overnight, I evaluated the patient earlier today, and she was doing well on mechanical ventilation. Off propofol drip, and she looked very appropriate. Her chest x-ray showed possibly a limited infiltrate in the right upper lobe, otherwise no significant abnormalities noted. At bedside, I went ahead and recommended a pressure support and CPAP trial, and the patient was noted to have good tidal volumes in the range of 500 , rate was in the range of 15-18. And this went on for almost over half an hour. While at bedside, I recommended extubating the patient to BiPAP. And she will be on BiPAP of 12 and 4. ABG this morning showed a pO2 of 106 pCO2 of 40 pH of 7.43. CBC was also reviewed. Basic metabolic profile was noted. Chest x-ray was also reviewed. Patient was extubated while I'm at bedside, and she was placed on BiPAP, and a nasogastric tube will be removed. Objective - Vital Signs Vital signs: Vital Signs Temp 98.3 F 03/01/17 13:00 Pulse 89 03/01/17 15:41 Resp 48 H 03/01/17 15:00 BP 169/87 03/01/17 15:00 Pulse Ox 100 03/01/17 15:44 Intake & Output 02/28/17 03/01/17 03/01/17 18:59 06:59 18:59 Intake Total 265.027 1115.826 952.439 Output Total 50 935 295 Balance 170.684 558.826 657.439 Weight 53 kg 55.9 kg 58.7 kg Intake: IV 20 1150.0 900 Invasive Line 1 20 Piperacillin-Tazobactam 3 50.0 .375 gm In Dextrose/Water 1 50ml.bag @ 12.5 mls/hr IVPB Q8HR [facility] Rx#: [id number] Sodium Chloride 0.9% 1, 1100 900 000 ml @ 100 mls/hr IV . Q10H [facility] Rx#:[id number] Intake, IV Titration 200.684 343.826 52.439 Amount Magnesium Sulfate-D5w Pmx 100 1 gm In Dextrose/Water 1 100ml.bag @ 100 mls/hr IVPB ONCE [facility] Rx#: [id number] Piperacillin-Tazobactam 3 50 50 .375 gm In Dextrose/Water 1 50ml.bag @ 12.5 mls/hr IVPB Q8HR [facility] Rx#: [id number] Propofol 1,000 mg In 100 25.684 ml @ Titrate IV .Q0M ONE Rx#:[id number] Propofol 1,000 mg In 100 118.826 2.439 ml @ Titrate IV .Q0M [facility] Rx#:[id number] Sodium Chloride 0.9% 1, 125 125 000 ml @ 100 mls/hr IV . Q10H [facility] Rx#:[id number] Output: Urine 50 935 295 Other: Voiding Method Indwelling Catheter Indwelling Catheter Indwelling Catheter - Exam General appearance: Alert and oriented, endotracheal tube noted to be in place, no agitation is noted in spite of being on mechanical ventilation and widely awake. Endotracheal tube and nasogastric tube were in proper positions. Head exam: atraumatic, normocephalic, Eye exam: PERRLA, EOMI, no icterus, slightly pale. ENT exam: Moist mucous membranes, normal nasal mucosa, throat is clear, endotracheal tube seems to be intact. Neck exam: No neck masses, no JVD, no thyromegaly, no stridor. Respiratory exam: Diffuse rhonchi and wheezes noted bilaterally, no chest wall tenderness, symmetrical expansion bilaterally noted. Cardiovascular Exam: Normal S1 and S2, no S3 gallop, no murmur. GI/Abdominal exam: Soft nontender no megaly no rebound no guarding, positive bowel sounds. Rectal exam: deferred Extremities exam: Present: full ROM, normal capillary refill, other (Skin tears are noted on the right upper extremity) Neurological exam: Cannot be assessed, patient is fully sedated intermittently noted to be anxious when aroused. Psychiatric exam: Cannot be assessed Skin exam: Multiple areas of ecchymosis noted on both upper and lower extremities, and areas of blistering noted in the left foot medial aspect. - Labs CBC & Chem 7: 03/01/17 04:31 03/01/17 04:31 Labs: Abnormal Lab Results - Last 24 Hours (Table) 02/28/17 02/28/17 02/28/17 Range/Units 15:38 15:38 17:31 RBC (3.80-5.40) m/uL Hgb (11.4-16.0) gm/dL MCV (80.0-100.0) fL RDW (11.5-15.5) % Neutrophils # (1.3-7.7) k/uL Lymphocytes # (1.0-4.8) k/uL APTT 20.4 L (22.0-30.0) sec D-Dimer 1.11 H (<0.60) mg/L FEU ABG pCO2 (35-45) mmHg ABG pO2 (83-108) mmHg ABG HCO3 (21-25) mmol/L ABG Total CO2 (19-24) mmol/L ABG O2 Saturation (94-97) % BUN (7-17) mg/dL Glucose (74-99) mg/dL POC Glucose (mg/dL) 121 H (75-99) mg/dL CK-MB (CK-2) 3.0 H* (0.0-2.4) ng/mL 02/28/17 02/28/17 03/01/17 Range/Units 17:40 23:43 04:31 RBC 3.43 L (3.80-5.40) m/uL Hgb 10.8 L (11.4-16.0) gm/dL MCV 101.3 H (80.0-100.0) fL RDW 16.2 H (11.5-15.5) % Neutrophils # 8.2 H (1.3-7.7) k/uL Lymphocytes # 0.8 L (1.0-4.8) k/uL APTT (22.0-30.0) sec D-Dimer (<0.60) mg/L FEU ABG pCO2 49 H (35-45) mmHg ABG pO2 224 H (83-108) mmHg ABG HCO3 31 H (21-25) mmol/L ABG Total CO2 32 H (19-24) mmol/L ABG O2 Saturation 100.0 H (94-97) % BUN (7-17) mg/dL Glucose (74-99) mg/dL POC Glucose (mg/dL) 121 H (75-99) mg/dL CK-MB (CK-2) (0.0-2.4) ng/mL 03/01/17 03/01/17 03/01/17 Range/Units 04:31 06:15 07:58 RBC (3.80-5.40) m/uL Hgb (11.4-16.0) gm/dL MCV (80.0-100.0) fL RDW (11.5-15.5) % Neutrophils # (1.3-7.7) k/uL Lymphocytes # (1.0-4.8) k/uL APTT (22.0-30.0) sec D-Dimer (<0.60) mg/L FEU ABG pCO2 (35-45) mmHg ABG pO2 (83-108) mmHg ABG HCO3 26 H (21-25) mmol/L ABG Total CO2 27 H (19-24) mmol/L ABG O2 Saturation 98.3 H (94-97) % BUN 20 H (7-17) mg/dL Glucose 118 H (74-99) mg/dL POC Glucose (mg/dL) 118 H (75-99) mg/dL CK-MB (CK-2) (0.0-2.4) ng/mL 03/01/17 Range/Units 12:27 RBC (3.80-5.40) m/uL Hgb (11.4-16.0) gm/dL MCV (80.0-100.0) fL RDW (11.5-15.5) % Neutrophils # (1.3-7.7) k/uL Lymphocytes # (1.0-4.8) k/uL APTT (22.0-30.0) sec D-Dimer (<0.60) mg/L FEU ABG pCO2 (35-45) mmHg ABG pO2 (83-108) mmHg ABG HCO3 (21-25) mmol/L ABG Total CO2 (19-24) mmol/L ABG O2 Saturation (94-97) % BUN (7-17) mg/dL Glucose (74-99) mg/dL POC Glucose (mg/dL) 102 H (75-99) mg/dL CK-MB (CK-2) (0.0-2.4) ng/mL Microbiology - Last 24 Hours (Table) 02/28/17 16:22 Gram Stain - Preliminary Sputum Sputum Culture - Preliminary Assessment and Plan Plan: Impression: 1 acute hypoxic and hypercapnic respiratory failure secondary to acute exacerbation of COPD and possible right upper lobe pneumonia. 2 acute right upper lobe pneumonia possibly hospital-acquired considering the patient has been in and out of the hospital quite frequently in the last few months. 3 history of chronic tobacco dependence, quit in 2012. 4 history of benign essential hypertension. 5 history of hyperlipidemia. 6 history of osteoporosis 7 advanced COPD FEV1 is 33% of the predicted. Recommendation: Patient was extubated to BiPAP, I plan to switch her to a nasal cannula if tolerated, I will continue bronchodilators and steroids, will cut down the hydrocortisone to 50 mg IV push every 8 hours, we'll continue DuoNeb, continue GI and DVT prophylaxis. Prognosis remains poor and guarded, patient remains critically ill. Critical care time is 34 minutes. Time with Patient: Greater than 30
[2017-03-01] MEDS: ALPRAZolam 0.25 MG TAB PO SCH ×2 (17:08→22:34)
--- NOTE | 2017-03-01 17:17 | PN ---
PROGRESS NOTE DATE OF SERVICE: 03/01/2017 This 71-year-old woman who was admitted after shortness of breath had COPD acute exacerbation as well as right upper lobe pneumonia with acute hypoxic respiratory failure. The patient is on broad-spectrum IV antibiotics. Possible acute pneumonia suspected. Dr. Parker is following the patient closely. Patient is currently on mechanical ventilation. The vent settings are 400 tidal volume, 30% FiO2, 5 of PEEP and 100% FiO2. The patient is actually more conscious. The patient has been closely monitored at this time. PAST MEDICAL HISTORY: Reviewed. REVIEW OF SYSTEMS: Review of systems could not be taken. The patient is on mechanical ventilation. CURRENT MEDICATIONS: 1. DuoNeb q.i.d. and p.r.n. 2. Xanax 0.5 b.i.d. 3. Pulmicort. 4. Peridex 15 mL b.i.d. 5. Heparin 5000 subcu q.8. 6. [QAMARKER p.o. q.8. 7. Narcan 0.2 q.2h p.r.n. 8. Protonix 40 mg daily. 9. Zosyn 3.375 IV q.8h. PHYSICAL EXAMINATION: The patient is mechanically ventilated and sedated. Pulse 48, blood pressure 116/88, respiration 18, temperature is normal, pulse ox is 99% on 40%. Mechanical vent settings are noted. HEENT: Conjunctivae normal. Oral mucosa moist. NECK: No jugular venous distention. No carotid bruit. CARDIOVASCULAR: S1, S2 RESPIRATORY: Breath sounds diminished in the bases. Bilateral scattered rhonchi and crackles. ABDOMEN: Soft. No distention, no guarding, no rigidity. NERVOUS SYSTEM: Mechanically ventilated and sedated. SKIN: No ulcer, rash or bleeding. LYMPHATICS: No lymphadenopathy in the neck, axillae or groin. LABS: WBC 9.8, hemoglobin 10.8. ABGs noted. Otherwise the glucose 118. ASSESSMENT: 1. Chronic obstructive pulmonary disease acute exacerbation with right upper lobe pneumonia possibly hospital acute pneumonia with acute hypoxic hypercarbic respiratory failure on mechanical ventilation. 2. History of pneumonia. 3. History hypertension. 4. History of chronic hypoxic respiratory failure. 5. Hyponatremia. 6. History of nicotine dependence. 7. Mild hypokalemia. 8. FULL CODE. RECOMMENDATIONS AND DISCUSSION: I recommend to continue the current medications and symptomatic treatment. Continue with mechanical ventilation. Continue with bronchodilators. Continue with empiric antibiotics. Follow the cultures. Dr. Parker is following the patient closely. The patient seems to be improving as far as the vent settings are concerned. Will continue to monitor. Further recommendations to follow. Once again, the prognosis guarded. The cultures are not available at this time. MMODL / IJN: [id number] /
[2017-03-01 18:39] LABS: Glucose,Whole Blood 90 mg/dL (75-99)
[2017-03-01] MEDS: LISINOPRIL 20 MG TAB PO SCH (20:04)
[2017-03-02 00:09] LABS: Glucose,Whole Blood 97 mg/dL (75-99)
[2017-03-02] MEDS: PIPERACILLIN-TAZOBACTAM 3.375 GM in DEXTROSE/WATER 1 50ML.BAG IVPB SCH ×3 (00:46→16:39)
[2017-03-02] MEDS: HEPARIN SODIUM,PORCINE 5,000 UNIT/ML 1 ML VIAL SQ SCH ×3 (00:46→16:38)
[2017-03-02] MEDS: IPRATROPIUM-ALBUTEROL 3 ML NEB INHALATION SCH ×6 (03:28→23:27)
[2017-03-02 04:49] LABS: Anisocytosis Slight; Basophils % (A) 0 %; CH 32.3; CHCM 31.8; Eosinophils % (A) 0 %; HCT 33.1 % (34.0-46.0); HDW 2.39; HGB 10.4 gm/dL (11.4-16.0); Luc # (Auto) 0.07; Luc % (Auto) 1; Lymphocytes # (A) 0.7 k/uL (1.0-4.8); Lymphocytes % (A) 8 %; MCH 31.9 pg (25.0-35.0); MCHC 31.3 g/dL (31.0-37.0); MCV 102.1 fL (80.0-100.0); Macrocytosis Slight; Mean Platelet Volume 8.6; Monocytes # (A) 0.7 k/uL (0-1.0); Monocytes % (A) 8 %; Neutrophils # (A) 7.3 k/uL (1.3-7.7); Neutrophils % (A) 83 %; RBC 3.25 m/uL (3.80-5.40); RDW 16.1 % (11.5-15.5); WBC 8.8 k/uL (3.8-10.6); WBC (Perox) 8.58
[2017-03-02 04:58] LABS: Anion Gap 4 mmol/L; Blood Urea Nitrogen 16 mg/dL (7-17); Calcium 8.2 mg/dL (8.4-10.2); Carbon Dioxide 27 mmol/L (22-30); Chloride 108 mmol/L (98-107); Glucose 94 mg/dL (74-99); Magnesium 2.1 mg/dL (1.6-2.3); Non-African American GFR(MDRD) >60 (>60 ml/min/1.73 sqM); Phosphorus 2.9 mg/dL (2.5-4.5); Potassium 3.6 mmol/L (3.5-5.1); Sodium 139 mmol/L (137-145)
[2017-03-02] MEDS ORDERED: Potassium Replacement Protocol 1 EACH MISC MISCELLANE PRN (05:34)
[2017-03-02] MEDS ORDERED: POTASSIUM CHLORIDE ER 20 MEQ TAB.ER PO SCH ×2 (06:00→23:00)
[2017-03-02] MEDS: ACETAMINOPHEN TAB 325 MG TAB PO PRN (06:14)
[2017-03-02] MEDS: BUDESONIDE 0.5 MG/2 ML NEBU INHALATION SCH ×2 (07:42→20:47)
[2017-03-02 07:53] LABS: Glucose,Whole Blood 79 mg/dL (75-99)
[2017-03-02] MEDS: PANTOPRAZOLE 40 MG/10 ML VIAL IVP SCH (08:00)
[2017-03-02] MEDS: INSULIN LISPRO (humaLOG) 300 UNIT/3 ML VIAL SQ SCH ×4 (08:11→21:34)
--- NOTE | 2017-03-02 08:29 | XR ---
EXAMINATION TYPE: XR chest 1V portable DATE OF EXAM: 03/02/2017 HISTORY: copd. REFERENCE: Previous study dated 03/01/2017. FINDINGS: The patient has been extubated. The patient is NG tube is been removed. The lungs are overinflated. There is vascular congestion and subtle interstitial change. Heart size u pper limits of normal. Pleural spaces are clear. IMPRESSION: 1. COPD. 2. FINDINGS MOST CONSISTENT WITH PULMONARY EDEMA SUPERIMPOSED UPON ABNORMAL LUNG ARCHITECTURE.
[2017-03-02] MEDS: HYDROCORTISONE SUCCINATE 100 MG/2 ML VIAL IV SCH ×2 (08:30→21:32)
[2017-03-02] MEDS: LISINOPRIL 20 MG TAB PO SCH (08:30)
[2017-03-02] MEDS: ALPRAZolam 0.25 MG TAB PO SCH ×3 (08:30→21:35)
[2017-03-02] MEDS ORDERED: FUROSEMIDE 20 MG TAB PO SCH (09:00)
[2017-03-02 11:48] LABS: Glucose,Whole Blood 104 mg/dL (75-99)
[2017-03-02] MEDS: ISOSORBIDE MONONITRATE ER 30 MG TAB.ER.24H PO SCH (12:13)
--- NOTE | 2017-03-02 12:18 | P.PN ---
Subjective Principal diagnosis: Acute hypoxic and hypercapnic respiratory failure secondary to COPD exacerbation. This is a 71-year-old female with history of severe end-stage COPD, O2 dependent , prednisone dependent, patient was recently admitted in the last year at least half dozen times with symptoms of acute COPD exacerbation. Patient was actually discharged home on 02/09/2017 after 5 days of hospitalization for acute exacerbation of COPD. Patient was also earlier admitted on 01/13/2017, and discharged on 01/25/2017. Over the last one year, patient has been experiencing intermittent episodes of COPD exacerbation, and she had multiple admissions. Today, the patient developed severe shortness of breath around 11:30 AM, and she was brought in by EMS after trying home treatment with nebulized medications , and she was not getting any better. Upon arrival the patient was in extreme respiratory distress, did not do well on CPAP or BiPAP, hence the patient was intubated by the ER physician shortly after she arrived to the ER. I went down and saw the patient in the ER, and discussed her condition with the family. Clearly the patient presented with a acute hypoxic respiratory failure secondary to COPD exacerbation, and she was noted to have a very limited infiltrate at the periphery of the right upper lobe may represent pneumonia. According to the family patient has been compliant with her meds on a regular basis. And has been taking her prednisone as directed. Labs from the ER were reviewed including a normal CBC. Normal basic metabolic profile. And relatively normal renal profile. Not much history could be obtained from the patient herself as she was noted to be on propofol drip, sedated, and on mechanical ventilation. Endotracheal tube was addressed and moved about 2 cm proximally. Patient was reevaluated today on 03/01/2017, she was on mechanical ventilation overnight, she was also on propofol drip, and was receiving Dilaudid intermittently. Did relatively well overnight, I evaluated the patient earlier today, and she was doing well on mechanical ventilation. Off propofol drip, and she looked very appropriate. Her chest x-ray showed possibly a limited infiltrate in the right upper lobe, otherwise no significant abnormalities noted. At bedside, I went ahead and recommended a pressure support and CPAP trial, and the patient was noted to have good tidal volumes in the range of 500 , rate was in the range of 15-18. And this went on for almost over half an hour. While at bedside, I recommended extubating the patient to BiPAP. And she will be on BiPAP of 12 and 4. ABG this morning showed a pO2 of 106 pCO2 of 40 pH of 7.43. CBC was also reviewed. Basic metabolic profile was noted. Chest x-ray was also reviewed. Patient was extubated while I'm at bedside, and she was placed on BiPAP, and a nasogastric tube will be removed. Reevaluated today on 03/02/2017, patient is now on 4 L nasal cannula, tolerated the extubation well over the last 24 hours. Feels much better, intermittently has been on BiPAP. Patient denies any cough no wheezing no shortness of breath at present. Chest x-ray is even looking much better. There is however mild prominence of the pulmonary vasculature, hence I will cut down her IV fluid, may or may not consider gentle diuresis on this patient. Clinically the patient is doing great and better than expected. Labs were reviewed she had a relatively normal CBC except for hemoglobin of 10.4 renal profile is normal bicarb is 27. Objective - Vital Signs Vital signs: Vital Signs Temp 97.5 F L 03/02/17 10:00 Pulse 86 03/02/17 11:35 Resp 21 03/02/17 11:00 BP 132/60 03/02/17 11:00 Pulse Ox 99 03/02/17 11:00 Intake & Output 03/01/17 03/02/17 03/02/17 18:59 06:59 18:59 Intake Total 1602.439 550 900 Output Total 515 970 380 Balance 1087.439 -420 520 Weight 58.7 kg 57.9 kg 57.9 kg Intake: IV 1550 550 250 Sodium Chloride 0.9% 1, 1550 550 250 000 ml @ 50 mls/hr IV . Q20H [facility] Rx#:[id number] Intake, IV Titration 52.439 50 Amount Piperacillin-Tazobactam 3 50 50 .375 gm In Dextrose/Water 1 50ml.bag @ 12.5 mls/hr IVPB Q8HR [facility] Rx#: [id number] Propofol 1,000 mg In 100 2.439 ml @ Titrate IV .Q0M [facility] Rx#:[id number] Oral 600 Output: Urine 515 970 380 Other: Voiding Method Indwelling Catheter Indwelling Catheter Indwelling Catheter - Exam General appearance: Alert and oriented, not in distress Head exam: atraumatic, normocephalic, Eye exam: PERRLA, EOMI, no icterus, slightly pale. ENT exam: Moist mucous membranes, normal nasal mucosa, throat is clear Neck exam: No neck masses, no JVD, no thyromegaly, no stridor. Respiratory exam: Diminished breath sound bilaterally, no chest wall tenderness , symmetrical expansion bilaterally noted. Cardiovascular Exam: Normal S1 and S2, no S3 gallop, no murmur. GI/Abdominal exam: Soft nontender no megaly no rebound no guarding, positive bowel sounds. Rectal exam: deferred Extremities exam: Present: full ROM, normal capillary refill, other (Skin tears are noted on the right upper extremity) Neurological exam: No gross focal neurologic deficit Psychiatric exam: Normal mental status exam, normal affect, normal mood. No suicidal thoughts. Skin exam: Multiple areas of ecchymosis noted on both upper and lower extremities, and areas of blistering noted in the left foot medial aspect. - Labs CBC & Chem 7: 03/02/17 04:29 03/02/17 04:29 Labs: Abnormal Lab Results - Last 24 Hours (Table) 03/01/17 03/02/17 03/02/17 Range/Units 12:27 04:29 04:29 RBC 3.25 L (3.80-5.40) m/uL Hgb 10.4 L (11.4-16.0) gm/dL Hct 33.1 L (34.0-46.0) % MCV 102.1 H (80.0-100.0) fL RDW 16.1 H (11.5-15.5) % Lymphocytes # 0.7 L (1.0-4.8) k/uL Chloride 108 H (98-107) mmol/L Creatinine 0.50 L (0.52-1.04) mg/dL POC Glucose (mg/dL) 102 H (75-99) mg/dL Calcium 8.2 L (8.4-10.2) mg/dL 03/02/17 Range/Units 11:47 RBC (3.80-5.40) m/uL Hgb (11.4-16.0) gm/dL Hct (34.0-46.0) % MCV (80.0-100.0) fL RDW (11.5-15.5) % Lymphocytes # (1.0-4.8) k/uL Chloride (98-107) mmol/L Creatinine (0.52-1.04) mg/dL POC Glucose (mg/dL) 104 H (75-99) mg/dL Calcium (8.4-10.2) mg/dL Microbiology - Last 24 Hours (Table) 02/28/17 16:22 Gram Stain - Preliminary Sputum Sputum Culture - Preliminary Assessment and Plan Plan: Impression: 1 acute hypoxic and hypercapnic respiratory failure secondary to acute exacerbation of COPD . No evidence of pneumonia on chest x-ray today. 2 acute right upper lobe pneumonia was suspected, however considering the chest x-ray today, patient never had pneumonia on this admission to begin with. 3 history of chronic tobacco dependence, quit in 2012. 4 history of benign essential hypertension. 5 history of hyperlipidemia. 6 history of osteoporosis 7 advanced COPD FEV1 is 33% of the predicted. Recommendation: Patient was extubated yesterday uneventfully, tolerated the extubation well over the last 24 hours, we'll continue to monitor the patient in the ICU for the next 24 hours, like to transfer to a regular medical floor tomorrow. Continue the meantime steroids, bronchodilators, antibiotics, and we' ll continue to follow closely. Time with Patient: Less than 30
[2017-03-02 16:44] LABS: Glucose,Whole Blood 108 mg/dL (75-99)
--- NOTE | 2017-03-02 17:33 | PN ---
PROGRESS NOTE DATE OF SERVICE: 03/02/2017 INTERVAL HISTORY: This 71-year-old woman who was admitted with COPD exacerbation as well as right upper lobe pneumonia, is being closely monitored at this time. The patient was extubated. The patient is significantly short of breath. The patient has significant COPD. The most recent chest x-ray shows suspicious pulmonary edema superimposed. PAST MEDICAL HISTORY: Reviewed. REVIEW OF SYSTEMS: Cardiovascular: No angina. GI: As mentioned. : No dysuria. Nervous system: As mentioned. CURRENT MEDICATIONS: 1. Tylenol 650 every 6 hours p.r.n. 2. DuoNeb q.i.d. and p.r.n. 3. Lidocaine spray. 4. Pulmicort 0.5 b.i.d. 5. Lasix 20 mg every 48 hours. 6. Heparin. 7. Solu-Cortef 50 IV b.i.d. 8. Imdur 30 mg daily. 9. Zestril. 10.Narcan. PHYSICAL EXAMINATION: GENERAL: The patient the alert oriented x2. VITAL SIGNS: Pulse 86, blood pressure is 156/76, respiratory rate 20, temp 97.8, pulse ox 98% on 2 L. HEENT: Conjunctivae normal. Oral mucosa moist. NECK: No jugular venous distention. No lymph node enlargement. CARDIOVASCULAR: S1 and S2 muffled. LUNGS: Breath sounds diminished at the bases. Few scattered rhonchi and crackles. Expiratory wheezing also. Chest emphysematous. Accessory muscle of respirations acting. The patient is unable to complete a sentence at this time. ABDOMEN: Soft, scaphoid, nontender. No mass palpable. EXTREMITIES: Legs no edema. NERVOUS SYSTEM: Higher functions as mentioned. Moves all limbs equally. LYMPHATICS: No lymph nodes palpable in the neck, axillae, groin. SKIN: N rashes. LABS: WBC 8.1, hemoglobin 10.4. ASSESSMENT: 1. Chronic obstructive pulmonary disease acute exacerbation with right upper lobe pneumonia, possibly hospital-acquired pneumonia with acute hypoxic respiratory failure status post mechanical ventilation. 2. History of pneumonia. 3. Hypertension. 4. History of chronic hypoxic respiratory failure. 5. Hyponatremia. 6. History of nicotine dependence. 7. Mild hypokalemia. 8. FULL CODE. RECOMMENDATIONS: Continue to monitor. Symptomatic treatment. Recommend continue with bronchodilators and optimize steroids. Empiric antibiotics. The patient is started on Zosyn at this time. Closely monitor with Dr. Parker. PT/OT evaluation. Further recommendations to follow. MMODL / IJN: [id number] /
[2017-03-02 20:23] LABS: Glucose,Whole Blood 124 mg/dL (75-99)
[2017-03-03] MEDS: PIPERACILLIN-TAZOBACTAM 3.375 GM in DEXTROSE/WATER 1 50ML.BAG IVPB SCH ×4 (00:16→23:45)
[2017-03-03] MEDS: HEPARIN SODIUM,PORCINE 5,000 UNIT/ML 1 ML VIAL SQ SCH ×4 (00:16→23:45)
[2017-03-03] MEDS: ACETAMINOPHEN TAB 325 MG TAB PO PRN (00:32)
[2017-03-03] MEDS: SODIUM CHLORIDE 0.9% 1,000 ML IV SCH ×4 (02:40→16:46)
[2017-03-03] MEDS: IPRATROPIUM-ALBUTEROL 3 ML NEB INHALATION SCH ×5 (03:22→21:35)
[2017-03-03 04:45] LABS: Anisocytosis Slight; Basophils % (A) 0 %; CH 32.7; CHCM 31.6; Eosinophils % (A) 0 %; HCT 32.3 % (34.0-46.0); Luc # (Auto) 0.07; Luc % (Auto) 1; Lymphocytes # (A) 0.8 k/uL (1.0-4.8); Lymphocytes % (A) 14 %; MCH 32.2 pg (25.0-35.0); MCHC 30.9 g/dL (31.0-37.0); MCV 104.1 fL (80.0-100.0); Macrocytosis Moderate; Mean Platelet Volume 9.3; Monocytes # (A) 0.4 k/uL (0-1.0); Monocytes % (A) 8 %; Neutrophils # (A) 4.5 k/uL (1.3-7.7); Neutrophils % (A) 77 %; RDW 16.6 % (11.5-15.5); WBC 5.9 k/uL (3.8-10.6); WBC (Perox) 5.96
[2017-03-03 04:59] LABS: Anion Gap 1 mmol/L; Blood Urea Nitrogen 14 mg/dL (7-17); Calcium 8.4 mg/dL (8.4-10.2); Carbon Dioxide 33 mmol/L (22-30); Chloride 106 mmol/L (98-107); Glucose 124 mg/dL (74-99); Non-African American GFR(MDRD) >60 (>60 ml/min/1.73 sqM); Phosphorus 2.7 mg/dL (2.5-4.5); Potassium 4.7 mmol/L (3.5-5.1); Sodium 140 mmol/L (137-145)
[2017-03-03] MEDS: LISINOPRIL 20 MG TAB PO SCH (06:21)
--- NOTE | 2017-03-03 06:45 | XR ---
EXAMINATION TYPE: XR chest 1V portable DATE OF EXAM: 03/03/2017 HISTORY: copd. REFERENCE: Previous study dated 03/02/2017. FINDINGS: The lungs are overinflated. There is mild vascular congestion and subtle interstitial manning e. Heart size is normal. Pleural spaces are clear. IMPRESSION: 1. COPD. 2. INTERSTITIAL CHANGE MAY BE ACUTE OR CHRONIC. THIS IS ACUTE, IT IS MOST LIKELY PULMONARY EDEMA. IF IT IS CHRONIC, IT MAY REPRESENT SOME DEGREE OF PULMONARY FIBROSIS.
[2017-03-03 07:34] LABS: Glucose,Whole Blood 90 mg/dL (75-99)
[2017-03-03] MEDS: INSULIN LISPRO (humaLOG) 300 UNIT/3 ML VIAL SQ SCH ×4 (07:53→21:03)
[2017-03-03] MEDS: PANTOPRAZOLE 40 MG TABLET PO SCH (07:54)
[2017-03-03] MEDS: ISOSORBIDE MONONITRATE ER 30 MG TAB.ER.24H PO SCH (07:54)
[2017-03-03] MEDS: HYDROCORTISONE SUCCINATE 100 MG/2 ML VIAL IV SCH ×2 (07:54→09:23)
[2017-03-03] MEDS: ALPRAZolam 0.25 MG TAB PO SCH ×3 (07:55→21:04)
[2017-03-03] MEDS: BUDESONIDE 0.5 MG/2 ML NEBU INHALATION SCH ×2 (08:05→21:35)
[2017-03-03] MEDS: predniSONE 20 MG TAB PO SCH (09:07)
[2017-03-03] MEDS: amLODIPine 5 MG TAB PO SCH (09:07)
[2017-03-03] MEDS: FUROSEMIDE 20 MG TAB PO SCH (09:07)
--- NOTE | 2017-03-03 11:54 | P.PN ---
Subjective Principal diagnosis: Acute hypoxic and hypercapnic respiratory failure secondary to COPD exacerbation. Requiring intubation and mechanical ventilation for one day. This is a 71-year-old female with history of severe end-stage COPD, O2 dependent , prednisone dependent, patient was recently admitted in the last year at least half dozen times with symptoms of acute COPD exacerbation. Patient was actually discharged home on 02/09/2017 after 5 days of hospitalization for acute exacerbation of COPD. Patient was also earlier admitted on 01/13/2017, and discharged on 01/25/2017. Over the last one year, patient has been experiencing intermittent episodes of COPD exacerbation, and she had multiple admissions. Today, the patient developed severe shortness of breath around 11:30 AM, and she was brought in by EMS after trying home treatment with nebulized medications , and she was not getting any better. Upon arrival the patient was in extreme respiratory distress, did not do well on CPAP or BiPAP, hence the patient was intubated by the ER physician shortly after she arrived to the ER. I went down and saw the patient in the ER, and discussed her condition with the family. Clearly the patient presented with a acute hypoxic respiratory failure secondary to COPD exacerbation, and she was noted to have a very limited infiltrate at the periphery of the right upper lobe may represent pneumonia. According to the family patient has been compliant with her meds on a regular basis. And has been taking her prednisone as directed. Labs from the ER were reviewed including a normal CBC. Normal basic metabolic profile. And relatively normal renal profile. Not much history could be obtained from the patient herself as she was noted to be on propofol drip, sedated, and on mechanical ventilation. Endotracheal tube was addressed and moved about 2 cm proximally. Patient was reevaluated today on 03/01/2017, she was on mechanical ventilation overnight, she was also on propofol drip, and was receiving Dilaudid intermittently. Did relatively well overnight, I evaluated the patient earlier today, and she was doing well on mechanical ventilation. Off propofol drip, and she looked very appropriate. Her chest x-ray showed possibly a limited infiltrate in the right upper lobe, otherwise no significant abnormalities noted. At bedside, I went ahead and recommended a pressure support and CPAP trial, and the patient was noted to have good tidal volumes in the range of 500 , rate was in the range of 15-18. And this went on for almost over half an hour. While at bedside, I recommended extubating the patient to BiPAP. And she will be on BiPAP of 12 and 4. ABG this morning showed a pO2 of 106 pCO2 of 40 pH of 7.43. CBC was also reviewed. Basic metabolic profile was noted. Chest x-ray was also reviewed. Patient was extubated while I'm at bedside, and she was placed on BiPAP, and a nasogastric tube will be removed. Reevaluated today on 03/02/2017, patient is now on 4 L nasal cannula, tolerated the extubation well over the last 24 hours. Feels much better, intermittently has been on BiPAP. Patient denies any cough no wheezing no shortness of breath at present. Chest x-ray is even looking much better. There is however mild prominence of the pulmonary vasculature, hence I will cut down her IV fluid, may or may not consider gentle diuresis on this patient. Clinically the patient is doing great and better than expected. Labs were reviewed she had a relatively normal CBC except for hemoglobin of 10.4 renal profile is normal bicarb is 27. Reevaluated today on 03/03/2017, patient continues to do relatively well, remains on nasal cannula, surprisingly doing better than expected considering his severe underlying COPD and considering that she was on mechanical ventilation upon presentation. Patient denies any shortness of breath no cough no wheezing. Her chest x-ray is showing mild congestive changes, hence the Lasix dose will be increased to daily instead of every 48 hours. CBC is relatively unremarkable hemoglobin is 10 basic metabolic profile is normal renal profile is normal. Objective - Vital Signs Vital signs: Vital Signs Temp 97.9 F 03/03/17 08:00 Pulse 87 03/03/17 11:35 Resp 19 03/03/17 08:00 BP 135/68 03/03/17 11:29 Pulse Ox 99 03/03/17 08:06 Intake & Output 03/02/17 03/03/17 03/03/17 18:59 06:59 18:59 Intake Total 1490 1192.5 182.5 Output Total 715 1135 75 Balance 775 57.5 107.5 Weight 57.9 kg 57.9 kg Intake: IV 550 700.0 62.5 Piperacillin-Tazobactam 3 50.0 12.5 .375 gm In Dextrose/Water 1 50ml.bag @ 12.5 mls/hr IVPB Q8HR [facility] Rx#: [id number] Sodium Chloride 0.9% 1, 550 650 50 000 ml @ 20 mls/hr IV . Q24H [facility] Rx#:[id number] Intake, IV Titration 100 12.5 Amount Piperacillin-Tazobactam 3 100 12.5 .375 gm In Dextrose/Water 1 50ml.bag @ 12.5 mls/hr IVPB Q8HR [facility] Rx#: [id number] Oral 840 480 120 Output: Urine 715 1135 75 Other: Voiding Method Indwelling Catheter Indwelling Catheter Indwelling Catheter - Exam General appearance: Alert and oriented, not in distress Head exam: atraumatic, normocephalic, Eye exam: PERRLA, EOMI, no icterus, slightly pale. ENT exam: Moist mucous membranes, normal nasal mucosa, throat is clear Neck exam: No neck masses, no JVD, no thyromegaly, no stridor. Respiratory exam: Diminished breath sound bilaterally, no chest wall tenderness , symmetrical expansion bilaterally noted. Cardiovascular Exam: Normal S1 and S2, no S3 gallop, no murmur. GI/Abdominal exam: Soft nontender no megaly no rebound no guarding, positive bowel sounds. Rectal exam: deferred Extremities exam: Present: full ROM, normal capillary refill, other (Skin tears are noted on the right upper extremity) Neurological exam: No gross focal neurologic deficit Psychiatric exam: Normal mental status exam, normal affect, normal mood. No suicidal thoughts. Skin exam: Multiple areas of ecchymosis noted on both upper and lower extremities, - Labs CBC & Chem 7: 03/03/17 04:23 03/03/17 04:21 Labs: Abnormal Lab Results - Last 24 Hours (Table) 03/02/17 03/02/17 03/03/17 Range/Units 16:41 20:22 04:21 RBC (3.80-5.40) m/uL Hgb (11.4-16.0) gm/dL Hct (34.0-46.0) % MCV (80.0-100.0) fL MCHC (31.0-37.0) g/dL RDW (11.5-15.5) % Lymphocytes # (1.0-4.8) k/uL Carbon Dioxide 33 H (22-30) mmol/L Glucose 124 H (74-99) mg/dL POC Glucose (mg/dL) 108 H 124 H (75-99) mg/dL 03/03/17 Range/Units 04:23 RBC 3.10 L (3.80-5.40) m/uL Hgb 10.0 L (11.4-16.0) gm/dL Hct 32.3 L (34.0-46.0) % MCV 104.1 H (80.0-100.0) fL MCHC 30.9 L (31.0-37.0) g/dL RDW 16.6 H (11.5-15.5) % Lymphocytes # 0.8 L (1.0-4.8) k/uL Carbon Dioxide (22-30) mmol/L Glucose (74-99) mg/dL POC Glucose (mg/dL) (75-99) mg/dL Microbiology - Last 24 Hours (Table) 02/28/17 16:22 Gram Stain - Final Sputum Sputum Culture - Final Assessment and Plan Plan: Impression: 1 acute hypoxic and hypercapnic respiratory failure secondary to acute exacerbation of COPD . No evidence of pneumonia on chest x-ray today. And yesterday 2 acute right upper lobe pneumonia was suspected, however considering the chest x-ray today, patient never had pneumonia on this admission to begin with. 3 history of chronic tobacco dependence, quit in 2012. 4 history of benign essential hypertension. 5 history of hyperlipidemia. 6 history of osteoporosis 7 advanced COPD FEV1 is 33% of the predicted. Recommendation: Patient has done well over the last 2 days since extubation, she is tolerating nasal cannula, BiPAP is at bedside if needed, I will switch her hydrocortisone to prednisone orally, will transfer the patient to a regular medical floor today, continue bronchodilators and antibiotics, and hopefully discharge planning in the next couple of days. We'll continue to follow. Time with Patient: Less than 30
[2017-03-03 12:01] LABS: Glucose,Whole Blood 164 mg/dL (75-99)
[2017-03-03 17:14] LABS: Glucose,Whole Blood 143 mg/dL (75-99)
[2017-03-03 20:47] LABS: Glucose,Whole Blood 166 mg/dL (75-99)
[2017-03-04] MEDS: IPRATROPIUM-ALBUTEROL 3 ML NEB INHALATION SCH ×6 (00:06→20:54)
--- NOTE | 2017-03-04 06:08 | PN ---
PROGRESS NOTE DATE OF SERVICE: 03/03/2017 This 71-year-old woman with a past medical history of multiple medical problems, admitted with COPD acute exacerbation. Patient with acute respiratory failure. Patient mechanically intubated. Patient improved significantly; but however the patient is extremely short of breath even on mild exertion at this time. Patient is being closely monitored. Dr. Parker is following the patient closely. The most recent chest x -ray was noted. PAST MEDICAL HISTORY: Reviewed. REVIEW OF SYSTEMS: CARDIOVASCULAR: No angina. RESPIRATORY: As mentioned earlier. GI: No nausea. : No dysuria. NERVOUS SYSTEM: No numbness or weakness. CURRENT MEDICATIONS: 1. Tylenol 650 q.6 p.r.n. 2. DuoNeb q.i.d. and p.r.n. 3. Xanax 0.25 t.i.d. 4. Hurricaine spray. 5. Pulmicort 0.5 mg b.i.d. 6. Lasix 20 mg. 7. Heparin. 8. Humalog. 9. Imdur. 10.Zestril. 11.Narcan. PHYSICAL EXAM: Patient is alert and oriented x3. Pulse is 96, blood pressure 154/80, respiration 19, temperature 97.8, pulse ox 94% on 2 L. HEENT: Conjunctivae normal. Oral mucosa moist. Neck is no jugular venous distention. No carotid bruit. No lymph node enlargement. CARDIOVASCULAR: S1 and s2 muffled. RESPIRATORY: Breath sounds diminished at the bases. A few scattered rhonchi. emphysematous expiratory wheezing also had prolonged expiration present, increasing shortness of breath on minimal exertion. LEGS: No edema, no swelling. ABDOMEN: Soft, nontender. No mass palpable. NERVOUS SYSTEM: Higher functions as mentioned earlier. Moves all 4 limbs. No focal deficits. LYMPHATICS: No lymphadenopathy of the neck, axillae or groin. SKIN: No ulcers, rashes or bleeding. LAB STUDIES: WBC 5.9, hemoglobin 10. Accu-Cheks noted. ASSESSMENT: 1. Chronic obstructive pulmonary disease acute exacerbation with right upper lobe pneumonia possibly hospital acquired pneumonia with acute hypoxic respiratory failure status post mechanical ventilation. 2. History pneumonia. 3. Hypertension. 4. History of chronic hypoxic respiratory failure. 5. Hyponatremia. 6. History of nicotine dependence. 7. Mild hypokalemia. RECOMMENDATIONS AND DISCUSSION: Recommend to continue current medication, continue with symptomatic treatment. I would recommend x-rays and continue to follow up also. Follow closely with Pulmonary. Prognosis guarded because of multiple complex medical issues. Further recommendations to follow. Chest x-ray also showed some possible pulmonary edema also. JOAQUINL / FABYN: [id number] / MTDD
[2017-03-04 06:57] LABS: Basophils % (A) 0 %; CH 31.4; CHCM 30.8; Eosinophils % (A) 1 %; HCT 36.4 % (34.0-46.0); HDW 2.39; HGB 11.3 gm/dL (11.4-16.0); Hypochromasia Slight; Luc # (Auto) 0.16; Luc % (Auto) 2; Lymphocytes # (A) 1.1 k/uL (1.0-4.8); Lymphocytes % (A) 16 %; MCH 31.9 pg (25.0-35.0); MCHC 31.1 g/dL (31.0-37.0); MCV 102.6 fL (80.0-100.0); Macrocytosis Slight; Mean Platelet Volume 8.1; Monocytes # (A) 0.8 k/uL (0-1.0); Monocytes % (A) 11 %; Neutrophils % (A) 70 %; RBC 3.54 m/uL (3.80-5.40); RDW 15.6 % (11.5-15.5); WBC 7.1 k/uL (3.8-10.6); WBC (Perox) 7.77
[2017-03-04 07:10] LABS: Anion Gap 4 mmol/L; Blood Urea Nitrogen 10 mg/dL (7-17); Calcium 8.7 mg/dL (8.4-10.2); Carbon Dioxide 38 mmol/L (22-30); Chloride 100 mmol/L (98-107); Glucose 82 mg/dL (74-99); Non-African American GFR(MDRD) >60 (>60 ml/min/1.73 sqM); Potassium 3.6 mmol/L (3.5-5.1); Sodium 142 mmol/L (137-145)
[2017-03-04] MEDS: BUDESONIDE 0.5 MG/2 ML NEBU INHALATION SCH ×2 (07:17→20:53)
[2017-03-04 07:18] LABS: Glucose,Whole Blood 84 mg/dL (75-99)
[2017-03-04] MEDS: INSULIN LISPRO (humaLOG) 300 UNIT/3 ML VIAL SQ SCH ×4 (08:11→21:21)
--- NOTE | 2017-03-04 08:46 | XR ---
EXAMINATION TYPE: XR chest 1V portable DATE OF EXAM: 03/04/2017 CLINICAL HISTORY: Difficulty breathing progress study. History of COPD. TECHNIQUE: Single AP portable upright view of the chest is obtained. COMPARISON: Chest x-ray from one day earlier. CTA chest February 05, 2017 FINDINGS: There is background chronic emphysematous change without suspicious new focal airspace opa city, pleural effusion, or pneumothorax seen bilaterally. There is biapical pleural thickening and ri ght upper lung scarring as well as left basilar lateral scarring all redemonstrated. Cardiac silhouet te size is stable and within normal limits with atherosclerotic thoracic aorta. Osseous structures ar e demineralized. IMPRESSION: Overall stable findings, chronic emphysematous and fibrotic changes without acute pulmo nary process identified.
[2017-03-04] MEDS: HEPARIN SODIUM,PORCINE 5,000 UNIT/ML 1 ML VIAL SQ SCH ×2 (09:02→14:11)
--- NOTE | 2017-03-04 09:07 | P.PN ---
Subjective Principal diagnosis: Acute hypoxic and hypercapnic respiratory failure secondary to COPD exacerbation. Acute hypoxic and hypercapnic respiratory failure secondary to COPD exacerbation. Requiring intubation and mechanical ventilation for one day. This is a 71-year-old female with history of severe end-stage COPD, O2 dependent , prednisone dependent, patient was recently admitted in the last year at least half dozen times with symptoms of acute COPD exacerbation. Patient was actually discharged home on 02/09/2017 after 5 days of hospitalization for acute exacerbation of COPD. Patient was also earlier admitted on 01/13/2017, and discharged on 01/25/2017. Over the last one year, patient has been experiencing intermittent episodes of COPD exacerbation, and she had multiple admissions. Today, the patient developed severe shortness of breath around 11:30 AM, and she was brought in by EMS after trying home treatment with nebulized medications , and she was not getting any better. Upon arrival the patient was in extreme respiratory distress, did not do well on CPAP or BiPAP, hence the patient was intubated by the ER physician shortly after she arrived to the ER. I went down and saw the patient in the ER, and discussed her condition with the family. Clearly the patient presented with a acute hypoxic respiratory failure secondary to COPD exacerbation, and she was noted to have a very limited infiltrate at the periphery of the right upper lobe may represent pneumonia. According to the family patient has been compliant with her meds on a regular basis. And has been taking her prednisone as directed. Labs from the ER were reviewed including a normal CBC. Normal basic metabolic profile. And relatively normal renal profile. Not much history could be obtained from the patient herself as she was noted to be on propofol drip, sedated, and on mechanical ventilation. Endotracheal tube was addressed and moved about 2 cm proximally. Patient was reevaluated today on 03/01/2017, she was on mechanical ventilation overnight, she was also on propofol drip, and was receiving Dilaudid intermittently. Did relatively well overnight, I evaluated the patient earlier today, and she was doing well on mechanical ventilation. Off propofol drip, and she looked very appropriate. Her chest x-ray showed possibly a limited infiltrate in the right upper lobe, otherwise no significant abnormalities noted. At bedside, I went ahead and recommended a pressure support and CPAP trial, and the patient was noted to have good tidal volumes in the range of 500 , rate was in the range of 15-18. And this went on for almost over half an hour. While at bedside, I recommended extubating the patient to BiPAP. And she will be on BiPAP of 12 and 4. ABG this morning showed a pO2 of 106 pCO2 of 40 pH of 7.43. CBC was also reviewed. Basic metabolic profile was noted. Chest x-ray was also reviewed. Patient was extubated while I'm at bedside, and she was placed on BiPAP, and a nasogastric tube will be removed. Reevaluated today on 03/02/2017, patient is now on 4 L nasal cannula, tolerated the extubation well over the last 24 hours. Feels much better, intermittently has been on BiPAP. Patient denies any cough no wheezing no shortness of breath at present. Chest x-ray is even looking much better. There is however mild prominence of the pulmonary vasculature, hence I will cut down her IV fluid, may or may not consider gentle diuresis on this patient. Clinically the patient is doing great and better than expected. Labs were reviewed she had a relatively normal CBC except for hemoglobin of 10.4 renal profile is normal bicarb is 27. Reevaluated today on 03/03/2017, patient continues to do relatively well, remains on nasal cannula, surprisingly doing better than expected considering his severe underlying COPD and considering that she was on mechanical ventilation upon presentation. Patient denies any shortness of breath no cough no wheezing. Her chest x-ray is showing mild congestive changes, hence the Lasix dose will be increased to daily instead of every 48 hours. CBC is relatively unremarkable hemoglobin is 10 basic metabolic profile is normal renal profile is normal. 03/04/2017 the patient is seen in follow-up. She is resting in bed with no signs of distress. Oxygen requirements have been weaned down to 2 L per nasal cannula, oxygen saturations 94-98%. Respirations are nonlabored. On examination lung sounds diminished air entry bilaterally with a few scattered wheezes. No rhonchi, no rales. Patient is afebrile, she has been getting up to the bedside commode and sitting up in the chair for meals. Continue increasing activity as tolerated. Will obtain repeat chest x-ray today to reevaluate the mild congestive changes present on the chest x-ray from 2016. Overall her pulmonary status has significantly improved. Objective - Vital Signs Vital signs: Vital Signs Temp 97.3 F L 03/04/17 01:30 Pulse 84 03/04/17 07:33 Resp 16 03/04/17 03:50 BP 164/73 03/04/17 01:30 Pulse Ox 98 03/04/17 01:30 Intake & Output 03/03/17 03/04/17 03/04/17 18:59 06:59 18:59 Intake Total 335.0 160 Output Total 225 Balance 110.0 160 Intake: IV 95.0 160 Piperacillin-Tazobactam 3 25.0 .375 gm In Dextrose/Water 1 50ml.bag @ 12.5 mls/hr IVPB Q8HR [facility] Rx#: [id number] Sodium Chloride 0.9% 1, 70 160 000 ml @ 20 mls/hr IV . Q24H [facility] Rx#:[id number] Oral 240 Output: Urine 225 Other: Voiding Method Indwelling Catheter # Voids 2 # Bowel Movements 1 - Exam Exam General appearance: Alert and oriented, not in distress Head exam: atraumatic, normocephalic, Eye exam: PERRLA, EOMI, no icterus, slightly pale. ENT exam: Moist mucous membranes, normal nasal mucosa, throat is clear Neck exam: No neck masses, no JVD, no thyromegaly, no stridor. Respiratory exam: Diminished breath sound bilaterally, no chest wall tenderness , symmetrical expansion bilaterally noted, few scattered wheezes noted. Cardiovascular Exam: Normal S1 and S2, no S3 gallop, no murmur. GI/Abdominal exam: Soft nontender no megaly no rebound no guarding, positive bowel sounds. Rectal exam: deferred Extremities exam: Present: full ROM, normal capillary refill, other (Skin tears are noted on the right upper extremity). Right arm has extensive bruising from the shoulder down to her wrist. Neurological exam: No gross focal neurologic deficit Psychiatric exam: Normal mental status exam, normal affect, normal mood. No suicidal thoughts. Skin exam: Multiple areas of ecchymosis noted on both upper and lower extremities, - Labs CBC & Chem 7: 03/04/17 06:30 03/04/17 06:30 Labs: Abnormal Lab Results - Last 24 Hours (Table) 03/03/17 03/03/17 03/03/17 Range/Units 11:59 17:13 20:45 RBC (3.80-5.40) m/uL Hgb (11.4-16.0) gm/dL MCV (80.0-100.0) fL RDW (11.5-15.5) % Carbon Dioxide (22-30) mmol/L POC Glucose (mg/dL) 164 H 143 H 166 H (75-99) mg/dL 03/04/17 03/04/17 Range/Units 06:30 06:30 RBC 3.54 L (3.80-5.40) m/uL Hgb 11.3 L (11.4-16.0) gm/dL MCV 102.6 H (80.0-100.0) fL RDW 15.6 H (11.5-15.5) % Carbon Dioxide 38 H (22-30) mmol/L POC Glucose (mg/dL) (75-99) mg/dL Microbiology - Last 24 Hours (Table) 02/28/17 16:22 Gram Stain - Final Sputum Sputum Culture - Final Assessment and Plan Plan: Assessment and Plan Plan: Impression: 1 acute hypoxic and hypercapnic respiratory failure secondary to acute exacerbation of COPD . No evidence of pneumonia on chest x-ray today on 2016. Improvement noted and mild vascular prominence 2 acute right upper lobe pneumonia was suspected, however considering the chest x-ray today, patient never had pneumonia on this admission to begin with. 3 history of chronic tobacco dependence, quit in 2012. 4 history of benign essential hypertension. 5 history of hyperlipidemia. 6 history of osteoporosis 7 advanced COPD FEV1 is 33% of the predicted. Recommendation: Patient has done well over the last 3 days since extubation, she is tolerating nasal cannula, BiPAP is at bedside if needed, I will switch her hydrocortisone to prednisone orally, continue bronchodilators and antibiotics, increase activity as tolerated and hopefully discharge planning in the next 24 hours assuming she continues to improve. We'll continue to follow. I performed a history & physical examination of the patient and discussed their management with my nurse practitioner, Chani Toney. I reviewed the nurse practitioner's note and agree with the documented findings and plan of care.
[2017-03-04] MEDS: FUROSEMIDE 20 MG TAB PO SCH (09:34)
[2017-03-04] MEDS: LISINOPRIL 20 MG TAB PO SCH (09:34)
[2017-03-04] MEDS: PIPERACILLIN-TAZOBACTAM 3.375 GM in DEXTROSE/WATER 1 50ML.BAG IVPB SCH (09:34)
[2017-03-04] MEDS: amLODIPine 5 MG TAB PO SCH (09:35)
[2017-03-04] MEDS: predniSONE 20 MG TAB PO SCH (09:35)
[2017-03-04] MEDS: ISOSORBIDE MONONITRATE ER 30 MG TAB.ER.24H PO SCH (09:35)
[2017-03-04] MEDS: PANTOPRAZOLE 40 MG TABLET PO SCH (09:35)
[2017-03-04 09:41] VITALS: BMI 23.3
[2017-03-04 11:33] LABS: Glucose,Whole Blood 118 mg/dL (75-99)
[2017-03-04] MEDS: ALPRAZolam 0.25 MG TAB PO SCH ×3 (14:10→21:46)
--- NOTE | 2017-03-04 15:44 | PN ---
PROGRESS NOTE DATE OF SERVICE: 03/04/17. ATTENDING NOTE: This patient seen and examined by me. I discussed with my nurse practitioner, Ms. Conner. Patient admitted with COPD exacerbation. Per Pulmonary there is no pneumonia. Sitting up in a chair. Eating small amounts. Some short of breath at rest. EXAMINATION: Temperature 97.9, pulse 84, respiration 18, blood pressure 132/78, pulse ox 98% on 2 L. On exam lungs decreased breath sounds, expiratory wheezing, cardiovascular first and second sounds normal. No edema. ABDOMEN: Soft, nontender. Psychiatry alert and oriented times three. Skin bruising is present. INVESTIGATIONS: White count 5.9, hemoglobin 10.0, potassium 4.7. ASSESSMENT: 1. Acute severe chronic obstructive pulmonary disease exacerbation causing acute hypoxic and hypercapnic respiratory failure. 2. End-stage chronic obstructive pulmonary disease. 3. No evidence of pneumonia per Pulmonary. 4. Macrocytic anemia. Cause unknown. 5. Hyperglycemia from steroids. 6. Essential hypertension. PLAN: Antibiotics will be discontinued. Patient is switched over to oral prednisone. Care was discussed with the patient. Questions were answered. MMODL / IJN: [id number] /
[2017-03-04] MEDS: THEOPHYLLINE 24 HOUR 300 MG CAP.ER.24H PO SCH (16:20)
[2017-03-04 16:48] LABS: Glucose,Whole Blood 116 mg/dL (75-99)
--- NOTE | 2017-03-04 18:38 | P.PN ---
Progress Note - Text DATE OF SERVICE: 03/04/2017 PRESENTING COMPLAINT: Shortness of breath HISTORY OF PRESENT ILLNESS: 71-year-old female history of COPD presented with increasing shortness of breath. Found to be in an acute exacerbation of COPD. Admitted for the same INTERVAL HISTORY: Patient sitting up in a chair at the bedside appears comfortable. Breathing easily on 2 L . Tolerating her diet, ambulatory in the room and pressley ways. Last BM 03/03/2017. REVIEW OF SYSTEMS: Done for constitutional ,cardiovascular, GI, pulmonary with relevant findings as above. CURRENT MEDICATIONS DuoNeb's, Xanax, prednisone 40 mg by mouth daily, theophylline 300 mg by mouth daily, Norvasc 5 mg by mouth daily, Pulmicort, Lasix 20 mg by mouth daily, Imdur 30 mg by mouth daily, lisinopril 20 mg by mouth daily. PHYSICAL EXAM VITAL SIGNS: Temperature 97.9, pulse 102, respiratory rate 18, blood pressure 162/78, oxygen saturation 98% on 2 L. GENERAL APPEARANCE: Sitting up in a chair appears comfortable. EYES: Pupils equal. Conjunctiva normal. NECK: JVD not raised. Mass not palpable. RESPIRATORY: Respiratory effort normal. Lungs diminished with expiratory wheezing to auscultation. CARDIOVASCULAR: First and second sounds normal. Mild edema. ABDOMEN: Soft. Liver and spleen not palpable. No tenderness. No mass palpable. PSYCHIATRY: Alert and oriented x3. Mood and affect normal. INVESTIGATIONS: Hemoglobin 11.3, Accu-Cheks noted. Chest x-ray: Stable findings chronic emphysematous and fibrotic changes without an acute pulmonary process. ASSESSMENT: -Acute severe chronic obstructive pulmonary disease exacerbation causing acute hypoxic and hypercapnic respiratory failure. -End-stage chronic obstructive pulmonary disease. -No evidence of pneumonia per pulmonary. -Microcytic anemia. Cause unknown. -Hyperglycemia from steroids. -Essential hypertension. PLAN: Overall condition is stabilized, IV steroids switched to oral continue bronchodilators antibiotics increase activity. Discharge planning for the next 24 hours. Plan of care discussed with patient the bedside she is in agreement. We will follow closely. SEAT [employer]ACHINE statement: Patient was seen and examined by nurse practitioner Hailey Conner and all elements of the case discussed with attending Dr. Lugo
[2017-03-04 20:41] LABS: Glucose,Whole Blood 122 mg/dL (75-99)
[2017-03-04] MEDS: SODIUM CHLORIDE 0.9% 1,000 ML IV SCH (21:46)
[2017-03-05] MEDS: IPRATROPIUM-ALBUTEROL 3 ML NEB INHALATION SCH ×6 (00:38→19:30)
[2017-03-05 07:01] LABS: Glucose,Whole Blood 81 mg/dL (75-99)
[2017-03-05 07:25] LABS: Basophils % (A) 0 %; CH 31.3; CHCM 30.7; Eosinophils # (A) 0.1 k/uL (0-0.7); Eosinophils % (A) 1 %; HCT 35.8 % (34.0-46.0); HDW 2.37; HGB 11.3 gm/dL (11.4-16.0); Hypochromasia Slight; Luc # (Auto) 0.15; Luc % (Auto) 2; Lymphocytes % (A) 15 %; MCH 32.2 pg (25.0-35.0); MCHC 31.6 g/dL (31.0-37.0); MCV 102.2 fL (80.0-100.0); Macrocytosis Slight; Mean Platelet Volume 8.8; Monocytes # (A) 0.7 k/uL (0-1.0); Monocytes % (A) 10 %; Neutrophils % (A) 72 %; RDW 15.7 % (11.5-15.5); WBC 6.9 k/uL (3.8-10.6); WBC (Perox) 7.57
[2017-03-05] MEDS: BUDESONIDE 0.5 MG/2 ML NEBU INHALATION SCH ×2 (07:31→19:30)
[2017-03-05 07:39] LABS: Blood Urea Nitrogen 12 mg/dL (7-17); Calcium 8.7 mg/dL (8.4-10.2); Chloride 98 mmol/L (98-107); Glucose 79 mg/dL (74-99); Non-African American GFR(MDRD) >60 (>60 ml/min/1.73 sqM); Potassium 3.7 mmol/L (3.5-5.1); Sodium 141 mmol/L (137-145)
[2017-03-05 07:46] LABS: Anion Gap 6 mmol/L
[2017-03-05 07:50] LABS: Carbon Dioxide 37 mmol/L (22-30)
[2017-03-05] MEDS: PANTOPRAZOLE 40 MG TABLET PO SCH (08:25)
[2017-03-05] MEDS: FUROSEMIDE 20 MG TAB PO SCH (08:26)
[2017-03-05] MEDS: HEPARIN SODIUM,PORCINE 5,000 UNIT/ML 1 ML VIAL SQ SCH ×3 (08:26→17:02)
[2017-03-05] MEDS: ALPRAZolam 0.25 MG TAB PO SCH ×3 (08:26→22:08)
[2017-03-05] MEDS: ISOSORBIDE MONONITRATE ER 30 MG TAB.ER.24H PO SCH (08:27)
[2017-03-05] MEDS: amLODIPine 5 MG TAB PO SCH (08:27)
[2017-03-05] MEDS: LISINOPRIL 20 MG TAB PO SCH (08:27)
[2017-03-05] MEDS: THEOPHYLLINE 24 HOUR 300 MG CAP.ER.24H PO SCH (08:27)
[2017-03-05] MEDS: INSULIN LISPRO (humaLOG) 300 UNIT/3 ML VIAL SQ SCH ×4 (08:28→21:02)
[2017-03-05] MEDS: predniSONE 20 MG TAB PO SCH (08:29)
--- NOTE | 2017-03-05 08:42 | P.PN ---
Subjective Principal diagnosis: Acute hypoxic and hypercapnic respiratory failure secondary to COPD exacerbation. Acute hypoxic and hypercapnic respiratory failure secondary to COPD exacerbation. Requiring intubation and mechanical ventilation for one day. This is a 71-year-old female with history of severe end-stage COPD, O2 dependent , prednisone dependent, patient was recently admitted in the last year at least half dozen times with symptoms of acute COPD exacerbation. Patient was actually discharged home on 02/09/2017 after 5 days of hospitalization for acute exacerbation of COPD. Patient was also earlier admitted on 01/13/2017, and discharged on 01/25/2017. Over the last one year, patient has been experiencing intermittent episodes of COPD exacerbation, and she had multiple admissions. Today, the patient developed severe shortness of breath around 11:30 AM, and she was brought in by EMS after trying home treatment with nebulized medications , and she was not getting any better. Upon arrival the patient was in extreme respiratory distress, did not do well on CPAP or BiPAP, hence the patient was intubated by the ER physician shortly after she arrived to the ER. I went down and saw the patient in the ER, and discussed her condition with the family. Clearly the patient presented with a acute hypoxic respiratory failure secondary to COPD exacerbation, and she was noted to have a very limited infiltrate at the periphery of the right upper lobe may represent pneumonia. According to the family patient has been compliant with her meds on a regular basis. And has been taking her prednisone as directed. Labs from the ER were reviewed including a normal CBC. Normal basic metabolic profile. And relatively normal renal profile. Not much history could be obtained from the patient herself as she was noted to be on propofol drip, sedated, and on mechanical ventilation. Endotracheal tube was addressed and moved about 2 cm proximally. Patient was reevaluated today on 03/01/2017, she was on mechanical ventilation overnight, she was also on propofol drip, and was receiving Dilaudid intermittently. Did relatively well overnight, I evaluated the patient earlier today, and she was doing well on mechanical ventilation. Off propofol drip, and she looked very appropriate. Her chest x-ray showed possibly a limited infiltrate in the right upper lobe, otherwise no significant abnormalities noted. At bedside, I went ahead and recommended a pressure support and CPAP trial, and the patient was noted to have good tidal volumes in the range of 500 , rate was in the range of 15-18. And this went on for almost over half an hour. While at bedside, I recommended extubating the patient to BiPAP. And she will be on BiPAP of 12 and 4. ABG this morning showed a pO2 of 106 pCO2 of 40 pH of 7.43. CBC was also reviewed. Basic metabolic profile was noted. Chest x-ray was also reviewed. Patient was extubated while I'm at bedside, and she was placed on BiPAP, and a nasogastric tube will be removed. Reevaluated today on 03/02/2017, patient is now on 4 L nasal cannula, tolerated the extubation well over the last 24 hours. Feels much better, intermittently has been on BiPAP. Patient denies any cough no wheezing no shortness of breath at present. Chest x-ray is even looking much better. There is however mild prominence of the pulmonary vasculature, hence I will cut down her IV fluid, may or may not consider gentle diuresis on this patient. Clinically the patient is doing great and better than expected. Labs were reviewed she had a relatively normal CBC except for hemoglobin of 10.4 renal profile is normal bicarb is 27. Reevaluated today on 03/03/2017, patient continues to do relatively well, remains on nasal cannula, surprisingly doing better than expected considering his severe underlying COPD and considering that she was on mechanical ventilation upon presentation. Patient denies any shortness of breath no cough no wheezing. Her chest x-ray is showing mild congestive changes, hence the Lasix dose will be increased to daily instead of every 48 hours. CBC is relatively unremarkable hemoglobin is 10 basic metabolic profile is normal renal profile is normal. 03/04/2017 the patient is seen in follow-up. She is resting in bed with no signs of distress. Oxygen requirements have been weaned down to 2 L per nasal cannula, oxygen saturations 94-98%. Respirations are nonlabored. On examination lung sounds diminished air entry bilaterally with a few scattered wheezes. No rhonchi, no rales. Patient is afebrile, she has been getting up to the bedside commode and sitting up in the chair for meals. Continue increasing activity as tolerated. Will obtain repeat chest x-ray today to reevaluate the mild congestive changes present on the chest x-ray from 2016. Overall her pulmonary status has significantly improved. On 03/05/2017 the patient is seen sitting up in bed. She is slightly more short of breath today at rest, lung sounds diffuse wheezes throughout. She remains on 2 L oxygen per nasal cannula, O2 sats around 98%. No significant sputum reduction, patient has been afebrile. Chest x-ray from 03/04/2017 has been reviewed and showed no acute pulmonary process on the background of chronic emphysematous and fibrotic changes. IV steroids have been switched to oral prednisone. Patient continues on DuoNeb and Pulmicort nebulized treatments. Yesterday we added her home dose of theophylline 300 mg daily. We will continue to increase patient's activity as tolerated. Patient does not think she is ready to go home yet. We will reevaluate her in the next 24 hours. Objective - Vital Signs Vital signs: Vital Signs Temp 98.0 F 03/05/17 07:00 Pulse 78 03/05/17 07:47 Resp 18 03/05/17 07:00 BP 159/69 03/05/17 07:00 Pulse Ox 98 03/05/17 07:00 Intake & Output 03/04/17 03/05/17 03/05/17 18:59 06:59 18:59 Intake Total 80 160 Balance 80 160 Weight 57.9 kg Intake: IV 160 Sodium Chloride 0.9% 1, 160 000 ml @ 20 mls/hr IV . Q24H [facility] Rx#:[id number] Oral 80 Other: Voiding Method Bedside Commode # Voids 3 2 - Exam Exam General appearance: Alert and oriented, not in distress Head exam: atraumatic, normocephalic, Eye exam: PERRLA, EOMI, no icterus, slightly pale. ENT exam: Moist mucous membranes, normal nasal mucosa, throat is clear Neck exam: No neck masses, no JVD, no thyromegaly, no stridor. Respiratory exam: Diminished breath sound bilaterally, no chest wall tenderness , symmetrical expansion bilaterally noted, diffuse scattered wheezes noted. Cardiovascular Exam: Normal S1 and S2, no S3 gallop, no murmur. GI/Abdominal exam: Soft nontender no megaly no rebound no guarding, positive bowel sounds. Rectal exam: deferred Extremities exam: Present: full ROM, normal capillary refill, other (Skin tears are noted on the right upper extremity). Right arm has extensive bruising from the shoulder down to her wrist. Neurological exam: No gross focal neurologic deficit Psychiatric exam: Normal mental status exam, normal affect, normal mood. No suicidal thoughts. Skin exam: Multiple areas of ecchymosis noted on both upper and lower extremities, - Labs CBC & Chem 7: 03/05/17 07:02 03/05/17 07:02 Labs: Abnormal Lab Results - Last 24 Hours (Table) 03/04/17 03/04/17 03/04/17 Range/Units 11:30 16:46 20:27 RBC (3.80-5.40) m/uL Hgb (11.4-16.0) gm/dL MCV (80.0-100.0) fL RDW (11.5-15.5) % Carbon Dioxide (22-30) mmol/L Creatinine (0.52-1.04) mg/dL POC Glucose (mg/dL) 118 H 116 H 122 H (75-99) mg/dL 03/05/17 03/05/17 Range/Units 07:02 07:02 RBC 3.50 L (3.80-5.40) m/uL Hgb 11.3 L (11.4-16.0) gm/dL MCV 102.2 H (80.0-100.0) fL RDW 15.7 H (11.5-15.5) % Carbon Dioxide 37 H (22-30) mmol/L Creatinine 0.47 L (0.52-1.04) mg/dL POC Glucose (mg/dL) (75-99) mg/dL Assessment and Plan Plan: Assessment and Plan Plan: Impression: 1 acute hypoxic and hypercapnic respiratory failure secondary to acute exacerbation of COPD . No evidence of pneumonia on chest x-ray today on 2016. Improvement noted and mild vascular prominence 2 acute right upper lobe pneumonia was suspected, however considering the chest x-ray today, patient never had pneumonia on this admission to begin with. 3 history of chronic tobacco dependence, quit in 2012. 4 history of benign essential hypertension. 5 history of hyperlipidemia. 6 history of osteoporosis 7 advanced COPD FEV1 is 33% of the predicted. Plan: Continue bronchodilators and antibiotics, we added home dose theophylline 300 mg daily, IV steroids have been switched to prednisone yesterday. increase activity as tolerated and and we will reevaluate for discharge planning in the next 24 hours discharge. We'll continue to follow. I performed a history & physical examination of the patient and discussed their management with my nurse practitioner, Chani Toney. I reviewed the nurse practitioner's note and agree with the documented findings and plan of care.
[2017-03-05 11:42] LABS: Glucose,Whole Blood 123 mg/dL (75-99)
[2017-03-05] MEDS: CEPHALEXIN 500 MG CAP PO SCH ×3 (12:26→22:08)
[2017-03-05 16:53] LABS: Glucose,Whole Blood 126 mg/dL (75-99)
--- NOTE | 2017-03-05 17:47 | P.PN ---
Progress Note - Text DATE OF SERVICE: 03/05/2017 PRESENTING COMPLAINT: Shortness of breath HISTORY OF PRESENT ILLNESS: 71-year-old female history of COPD presented with increasing shortness of breath. Found to be in an acute exacerbation of COPD. Admitted for the same INTERVAL HISTORY: 03/05/2017: Patient sitting up with a chair at the bedside appears comfortable. Breathing easily on 2 L. Ambulate in the hallways tolerating her diet, last BM 2016. Left hand has a pretty severe skin tear, looks infected, Silvadene cream ordered along with a dressing. 03/04/2017 Patient sitting up in a chair at the bedside appears comfortable. Breathing easily on 2 L . Tolerating her diet, ambulatory in the room and [address] ways. Last BM 03/03/2017. REVIEW OF SYSTEMS: Done for constitutional ,cardiovascular, GI, pulmonary with relevant findings as above. CURRENT MEDICATIONS DuoNeb's, Xanax, prednisone 40 mg by mouth daily, theophylline 300 mg by mouth daily, Norvasc 5 mg by mouth daily, Pulmicort, Lasix 20 mg by mouth daily, Imdur 30 mg by mouth daily, lisinopril 20 mg by mouth daily. Silvadene cream PHYSICAL EXAM VITAL SIGNS: Temperature 97.0, pulse 87, respiratory rate 20, blood pressure 141/68, oxygen saturation 95% on 2 L. GENERAL APPEARANCE: Sitting up in a chair appears comfortable. EYES: Pupils equal. Conjunctiva normal. NECK: JVD not raised. Mass not palpable. RESPIRATORY: Respiratory effort normal. Lungs diminished with expiratory wheezing to auscultation. CARDIOVASCULAR: First and second sounds normal. Mild edema. ABDOMEN: Soft. Liver and spleen not palpable. No tenderness. No mass palpable. PSYCHIATRY: Alert and oriented x3. Mood and affect normal INTEGUMENT: Left hand with skin tear on the dorsum of the hand small amount of purulence with sanguinous drainage. INVESTIGATIONS: Hemoglobin 11.3, BUN 12 creatinine 0.47, Accu-Cheks noted ASSESSMENT: -Acute severe chronic obstructive pulmonary disease exacerbation causing acute hypoxic and hypercapnic respiratory failure. -Left hand skin tear/wound -End-stage chronic obstructive pulmonary disease. -No evidence of pneumonia per pulmonary. -Microcytic anemia. Cause unknown. -Hyperglycemia from steroids. -Essential hypertension. PLAN: Overall condition is stabilized, IV steroids switched to oral continue bronchodilators antibiotics increase activity. For left hand wound continue Silvadene cream with local dressing changes twice daily and when necessary. Plan of care discussed with patient the bedside she is in agreement. We will follow closely. CORN GRINDER statement: Patient was seen and examined by nurse practitioner Hailey Conner and all elements of the case discussed with attending Dr. Lugo
--- NOTE | 2017-03-05 18:42 | PN ---
PROGRESS NOTE DATE OF SERVICE: 03/05/2017 ATTENDING NOTE: This patient was seen and examined by me. I discussed the case with my nurse practitioner, Ms. Conner. Patient was admitted with COPD exacerbation. She is feeling a bit better. Appetite is getting better. The patient has a superficial wound on the left dorsum. PHYSICAL EXAMINATION: Afebrile. Blood pressure 148/68, pulse ox 95% on 2 L. LUNGS: Decreased breath sounds. Some wheezing. CARDIOVASCULAR: First and second sounds normal. EXTREMITIES: Left hand dorsum has a superficial wound. INVESTIGATIONS: White count 6.9, potassium 3.7. ASSESSMENT: 1. End-stage chronic obstructive pulmonary disease with acute exacerbation, improving, with acute hypoxic and hypercapnic respiratory failure. 2. Left hand dorsum cellulitis. PLAN: Will use topical Silvadene cream with dressing. Will put the patient on Keflex. Looking at discharge in 24 hours. Care was discussed with the patient. MMODL / FABYN: [id number] /
[2017-03-05 20:08] LABS: Glucose,Whole Blood 111 mg/dL (75-99)
[2017-03-05] MEDS: SODIUM CHLORIDE 0.9% 1,000 ML IV SCH (20:59)
[2017-03-06] MEDS: HEPARIN SODIUM,PORCINE 5,000 UNIT/ML 1 ML VIAL SQ SCH ×2 (00:07→08:30)
[2017-03-06] MEDS: IPRATROPIUM-ALBUTEROL 3 ML NEB INHALATION SCH ×5 (00:11→16:12)
[2017-03-06 07:15] LABS: Glucose,Whole Blood 83 mg/dL (75-99)
[2017-03-06] MEDS: BUDESONIDE 0.5 MG/2 ML NEBU INHALATION SCH (07:28)
[2017-03-06 08:30] VITALS: TEMP 97.6
[2017-03-06] MEDS: INSULIN LISPRO (humaLOG) 300 UNIT/3 ML VIAL SQ SCH (08:30)
[2017-03-06] MEDS: ALPRAZolam 0.25 MG TAB PO SCH (08:35)
[2017-03-06] MEDS: THEOPHYLLINE 24 HOUR 300 MG CAP.ER.24H PO SCH (08:35)
[2017-03-06] MEDS: CEPHALEXIN 500 MG CAP PO SCH (08:36)
[2017-03-06] MEDS: FUROSEMIDE 20 MG TAB PO SCH (08:36)
[2017-03-06] MEDS: PANTOPRAZOLE 40 MG TABLET PO SCH (08:36)
[2017-03-06] MEDS: LISINOPRIL 20 MG TAB PO SCH (08:36)
[2017-03-06] MEDS: predniSONE 20 MG TAB PO SCH (08:36)
[2017-03-06] MEDS: ISOSORBIDE MONONITRATE ER 30 MG TAB.ER.24H PO SCH (08:36)
[2017-03-06] MEDS: amLODIPine 5 MG TAB PO SCH (08:36)
--- NOTE | 2017-03-06 09:38 | P.PN ---
Subjective Progress Note Date: 03/06/17 Principal diagnosis: Acute hypoxic and hypercapnic respiratory failure secondary to COPD exacerbation. Acute hypoxic and hypercapnic respiratory failure secondary to COPD exacerbation. Requiring intubation and mechanical ventilation for one day. This is a 71-year-old female with history of severe end-stage COPD, O2 dependent , prednisone dependent, patient was recently admitted in the last year at least half dozen times with symptoms of acute COPD exacerbation. Patient was actually discharged home on 02/09/2017 after 5 days of hospitalization for acute exacerbation of COPD. Patient was also earlier admitted on 01/13/2017, and discharged on 01/25/2017. Over the last one year, patient has been experiencing intermittent episodes of COPD exacerbation, and she had multiple admissions. Today, the patient developed severe shortness of breath around 11:30 AM, and she was brought in by EMS after trying home treatment with nebulized medications , and she was not getting any better. Upon arrival the patient was in extreme respiratory distress, did not do well on CPAP or BiPAP, hence the patient was intubated by the ER physician shortly after she arrived to the ER. I went down and saw the patient in the ER, and discussed her condition with the family. Clearly the patient presented with a acute hypoxic respiratory failure secondary to COPD exacerbation, and she was noted to have a very limited infiltrate at the periphery of the right upper lobe may represent pneumonia. According to the family patient has been compliant with her meds on a regular basis. And has been taking her prednisone as directed. Labs from the ER were reviewed including a normal CBC. Normal basic metabolic profile. And relatively normal renal profile. Not much history could be obtained from the patient herself as she was noted to be on propofol drip, sedated, and on mechanical ventilation. Endotracheal tube was addressed and moved about 2 cm proximally. Patient was reevaluated today on 03/01/2017, she was on mechanical ventilation overnight, she was also on propofol drip, and was receiving Dilaudid intermittently. Did relatively well overnight, I evaluated the patient earlier today, and she was doing well on mechanical ventilation. Off propofol drip, and she looked very appropriate. Her chest x-ray showed possibly a limited infiltrate in the right upper lobe, otherwise no significant abnormalities noted. At bedside, I went ahead and recommended a pressure support and CPAP trial, and the patient was noted to have good tidal volumes in the range of 500 , rate was in the range of 15-18. And this went on for almost over half an hour. While at bedside, I recommended extubating the patient to BiPAP. And she will be on BiPAP of 12 and 4. ABG this morning showed a pO2 of 106 pCO2 of 40 pH of 7.43. CBC was also reviewed. Basic metabolic profile was noted. Chest x-ray was also reviewed. Patient was extubated while I'm at bedside, and she was placed on BiPAP, and a nasogastric tube will be removed. Reevaluated today on 03/02/2017, patient is now on 4 L nasal cannula, tolerated the extubation well over the last 24 hours. Feels much better, intermittently has been on BiPAP. Patient denies any cough no wheezing no shortness of breath at present. Chest x-ray is even looking much better. There is however mild prominence of the pulmonary vasculature, hence I will cut down her IV fluid, may or may not consider gentle diuresis on this patient. Clinically the patient is doing great and better than expected. Labs were reviewed she had a relatively normal CBC except for hemoglobin of 10.4 renal profile is normal bicarb is 27. Reevaluated today on 03/03/2017, patient continues to do relatively well, remains on nasal cannula, surprisingly doing better than expected considering his severe underlying COPD and considering that she was on mechanical ventilation upon presentation. Patient denies any shortness of breath no cough no wheezing. Her chest x-ray is showing mild congestive changes, hence the Lasix dose will be increased to daily instead of every 48 hours. CBC is relatively unremarkable hemoglobin is 10 basic metabolic profile is normal renal profile is normal. 03/04/2017 the patient is seen in follow-up. She is resting in bed with no signs of distress. Oxygen requirements have been weaned down to 2 L per nasal cannula, oxygen saturations 94-98%. Respirations are nonlabored. On examination lung sounds diminished air entry bilaterally with a few scattered wheezes. No rhonchi, no rales. Patient is afebrile, she has been getting up to the bedside commode and sitting up in the chair for meals. Continue increasing activity as tolerated. Will obtain repeat chest x-ray today to reevaluate the mild congestive changes present on the chest x-ray from 2016. Overall her pulmonary status has significantly improved. On 03/05/2017 the patient is seen sitting up in bed. She is slightly more short of breath today at rest, lung sounds diffuse wheezes throughout. She remains on 2 L oxygen per nasal cannula, O2 sats around 98%. No significant sputum reduction, patient has been afebrile. Chest x-ray from 03/04/2017 has been reviewed and showed no acute pulmonary process on the background of chronic emphysematous and fibrotic changes. IV steroids have been switched to oral prednisone. Patient continues on DuoNeb and Pulmicort nebulized treatments. Yesterday we added her home dose of theophylline 300 mg daily. We will continue to increase patient's activity as tolerated. Patient does not think she is ready to go home yet. We will reevaluate her in the next 24 hours. On 03/06/2017 patient is ambulating in the hallway on portable oxygen. States her breathing is better today, she is able to ambulate extensively around the unit without significant respiratory distress. Lung sounds are diminished, no wheezes, no rhonchi, no rales. No significant events through the night. Patient can be discharged home from pulmonary standpoint. Follow-up with Dr. Parker in 1 week. Objective - Vital Signs Vital signs: Vital Signs Temp 97.6 F 03/06/17 08:00 Pulse 86 03/06/17 08:00 Resp 20 03/06/17 08:00 BP 128/64 03/06/17 08:00 Pulse Ox 98 03/06/17 08:00 Intake & Output 03/05/17 03/06/17 03/06/17 18:59 06:59 18:59 Intake Total 100 Balance 100 Intake: Oral 100 Other: Voiding Method Toilet # Voids 3 1 - Exam Exam General appearance: Alert and oriented, not in distress Head exam: atraumatic, normocephalic, Eye exam: PERRLA, EOMI, no icterus, slightly pale. ENT exam: Moist mucous membranes, normal nasal mucosa, throat is clear Neck exam: No neck masses, no JVD, no thyromegaly, no stridor. Respiratory exam: Diminished breath sound bilaterally, no chest wall tenderness , symmetrical expansion bilaterally noted, nowheezes noted. Cardiovascular Exam: Normal S1 and S2, no S3 gallop, no murmur. GI/Abdominal exam: Soft nontender no megaly no rebound no guarding, positive bowel sounds. Rectal exam: deferred Extremities exam: Present: full ROM, normal capillary refill, other (Skin tears are noted on the right upper extremity). Right arm has extensive bruising from the shoulder down to her wrist. Neurological exam: No gross focal neurologic deficit Psychiatric exam: Normal mental status exam, normal affect, normal mood. No suicidal thoughts. Skin exam: Multiple areas of ecchymosis noted on both upper and lower extremities, - Labs CBC & Chem 7: 03/05/17 07:02 03/05/17 07:02 Labs: Abnormal Lab Results - Last 24 Hours (Table) 03/05/17 03/05/17 03/05/17 Range/Units 11:36 16:51 19:49 POC Glucose (mg/dL) 123 H 126 H 111 H (75-99) mg/dL Assessment and Plan Plan: Assessment and Plan Plan: Impression: 1 acute hypoxic and hypercapnic respiratory failure secondary to acute exacerbation of COPD . No evidence of pneumonia on chest x-ray today on 2016. Improvement noted and mild vascular prominence 2 acute right upper lobe pneumonia was suspected, however considering the chest x-ray today, patient never had pneumonia on this admission to begin with. 3 history of chronic tobacco dependence, quit in 2012. 4 history of benign essential hypertension. 5 history of hyperlipidemia. 6 history of osteoporosis 7 advanced COPD FEV1 is 33% of the predicted. Plan: Continue bronchodilators and antibiotics, we added home dose theophylline 300 mg daily, IV steroids have been switched to prednisone. Patient is doing well, he needs to progress. She is clear for discharge today for a pulmonary standpoint. Follow-up appointments with Dr. Parker in 1 week set up. We'll continue to follow. I performed a history & physical examination of the patient and discussed their management with my nurse practitioner, Chani Toney. I reviewed the nurse practitioner's note and agree with the documented findings and plan of care.
[2017-03-06 16:00] VITALS: BP 108/76; PULSE 77; RESP 18
--- NOTE | 2017-03-06 18:31 | P.DS ---
Providers Date of admission: 02/28/17 16:37 Expected date of discharge: 03/06/17 Attending physician: Ramiro Lugo Consults: 02/28/17 16:37 Consult Physician Stat Consulting Provider: Misty Parker Reason/Comments: Management, acute respiratory failure Do you want consulting provider notified?: Already Contacted Primary care physician: G[facility] Course: FINAL DIAGNOSES: -Acute severe chronic obstructive pulmonary disease exacerbation causing acute hypoxic and hypercapnic respiratory failure. -Left hand skin tear/wound -End-stage chronic obstructive pulmonary disease. -No evidence of pneumonia per pulmonary. -Microcytic anemia. Cause unknown. -Hyperglycemia from steroids. -Essential hypertension. HOSPTIAL COURSE: 71-year-old female with a history of COPD presented with increasing shortness of breath. Found to be in the an acute exacerbation of COPD was admitted for the same. Home medications ordered, pulmonology consulted nebulized bronchodilators and IV steroids initiated. Overall breathing improved, patient able to ambulate in the hallways and in the room. Noted to have 3 wounds one located to the lateral aspect of her right forearm the second wound to the dorsal surface of her left hand and the dorsal surface of her right foot. The wound located on the dorsum of her left hand infected appearing, Silvadene cream , dressing changes twice daily and antibiotics ordered in the form of Keflex. Right forearm wound healing well, Silvadene cream applied dressing changes provided. Right foot wound located between the great toe and the second toe has a scab over it healing appropriately. Patient's breathing improved and is back to her baseline, Tolerating her diet, ambulatory in the room and [address] ways , last BM 03/03/2017. Condition is stable patient is appropriate for discharge. PHYSICAL EXAM: CARDIOVASCULAR: First and second sounds noted no edema RESPIRATORY: Respiratory effort normal, lung sounds diminished bilaterally with occasional expiratory wheezing INTEGUMENT: Right forearm wound with Silvadene cream and dressing, dorsum left hand wound Silvadene cream and dressing, right foot wound between great toe and second toe noted to have a scab no erythema or bleeding or purulence noted PSYCHIATRY: Alert and oriented 3 mood and affect normal. Patient was seen and examined by nurse practitioner Hailey Conner in all elements of the case discussed with attending Dr. Lugo DISPOSITION: Home to the care of her family Patient Condition at Discharge: Stable Plan - Discharge Summary New Discharge Prescriptions: New amLODIPine [Norvasc] 5 mg PO DAILY #30 tab Cephalexin [Keflex] 500 mg PO QID #30 cap predniSONE See Taper PO DAILY #30 tab ALPRAZolam [Xanax] 0.25 mg PO TID #20 tab Budesonide [Pulmicort] 0.5 mg INHALATION RT-BID #60 neb SILVER sulfADIAZINE CREAM [Silvadene Cream] 1 applic TOPICAL BID #1 tube Continue Isosorbide Mononitrate ER [Imdur] 30 mg PO DAILY Theophylline 24 Hour [Benigno-24] 300 mg PO DAILY Albuterol Sulfate [Proair Hfa] 2 puff INHALATION RT-Q4H PRN PRN Reason: Shortness Of Breath Or Wheezing Lisinopril [Zestril] 20 mg PO BID Ipratropium/Albuterol Sulfate [Combivent Respimat Inhaler] 2 puff INHALATION RT-QID Furosemide [Lasix] 20 mg PO Q48H Atorvastatin Calcium [Lipitor] 40 mg PO HS Cholecalciferol (Vitamin D3) [Vitamin D3] 2,000 unit PO DAILY Discontinued Budesonide/Formoterol Fumarate [Symbicort 160-4.5 Mcg Inhaler] 2 puff INHALATION RT-BID predniSONE 10 mg PO DAILY Discharge Medication List Albuterol Sulfate [Proair Hfa] 2 puff INHALATION RT-Q4H PRN 10/29/13 [History] Isosorbide Mononitrate ER [Imdur] 30 mg PO DAILY 10/29/13 [History] Theophylline 24 Hour [Benigno-24] 300 mg PO DAILY 10/29/13 [History] Ipratropium/Albuterol Sulfate [Combivent Respimat Inhaler] 2 puff INHALATION RT- QID 09/23/15 [History] Lisinopril [Zestril] 20 mg PO BID 09/23/15 [History] Furosemide [Lasix] 20 mg PO Q48H 12/16/16 [History] Atorvastatin Calcium [Lipitor] 40 mg PO HS 02/28/17 [History] Cholecalciferol (Vitamin D3) [Vitamin D3] 2,000 unit PO DAILY 02/28/17 [History] ALPRAZolam [Xanax] 0.25 mg PO TID #20 tab 03/06/17 [Rx] Budesonide [Pulmicort] 0.5 mg INHALATION RT-BID #60 neb 03/06/17 [Rx] Cephalexin [Keflex] 500 mg PO QID #30 cap 03/06/17 [Rx] SILVER sulfADIAZINE CREAM [Silvadene Cream] 1 applic TOPICAL BID #1 tube [Rx] amLODIPine [Norvasc] 5 mg PO DAILY #30 tab 03/06/17 [Rx] predniSONE See Taper PO DAILY #30 tab 03/06/17 [Rx] Follow up Appointment(s)/Referral(s): Misty Parker MD [STAFF PHYSICIAN] - 03/15/17 10:30 am Gumaro Cummings DO [Primary Care Provider] - 03/14/17 2:15 pm Ambulatory/Diagnostic Orders: Basic Metabolic Panel [LAB.AMB] Location: Determined By Patient Complete Blood Count w/diff [LAB.AMB] Location: Determined By Patient Activity/Diet/Wound Care/Special Instructions: Keflex for 7 days for left hand wound. Wound care instructions: Cleanse the wound daily with normal saline Pad dry Use either a 4x4 or 2x2 depending which would you are dressing apply the silvadene cream to the dressing and place on wound, wrap with kerlix secure dressing with tape. Try to avoid placing tape on the skin, patients skin is extremely fragile. Discharge Disposition: HOME SELF-CARE
--- NOTE | 2017-03-06 23:55 | DS ---
DISCHARGE SUMMARY DATE OF SERVICE: 03/06/2017 ATTENDING NOTE: This patient was seen and examined by me. I discussed the case with my nurse practitioner, Ms. Conner. Patient is sitting up, comfortable. Keen to go home. On nasal cannula. LUNGS: Diminished breath sounds. CARDIOVASCULAR: First and second sounds normal. Wound on the dorsum of the left hand looking better. Bruising is present. Pulse ox 98% on 3 L. Blood pressure 120/64. ASSESSMENT: 1. Acute chronic obstructive pulmonary disease exacerbation, end-stage, improved. 2. Acute left hand dorsum wound. PLAN: Complete a course of Keflex. Topical sulfadine to continue. Patient is to follow up as directed. Care was discussed in detail. Questions were answered. Discharge planning more than 35 minutes. MMODL / IJN: [id number] /
== END 2017-03-06 16:50 | disposition home or self-care (01) | DRG 208 ==
LOC: EC 15:13 → 6ICU 16:37 → 3SUR 03-03 17:52
PROVIDERS: ADMIT Hospitalist; ATTEND Hospitalist
PROC: 0BH17EZ Insertion of Endotracheal Airway into Trachea, Via Natural or Artificial Opening (ICD-10-PCS; principal; 2017-02-28)
PROC: 5A1935Z Respiratory Ventilation, Less than 24 Consecutive Hours (ICD-10-PCS; 2017-02-28)
DX: J96.21 Acute and chronic respiratory failure with hypoxia (principal); J18.9 Pneumonia, unspecified organism; J44.0 Chronic obstructive pulmonary disease with (acute) lower respiratory infection; Z99.81 Dependence on supplemental oxygen; J44.1 Chronic obstructive pulmonary disease with (acute) exacerbation; E87.1 Hypo-osmolality and hyponatremia; L03.90 Cellulitis, unspecified; J96.22 Acute and chronic respiratory failure with hypercapnia; I10 Essential (primary) hypertension; M81.0 Age-related osteoporosis without current pathological fracture; E78.5 Hyperlipidemia, unspecified; D50.9 Iron deficiency anemia, unspecified; T38.0X5A Adverse effect of glucocorticoids and synthetic analogues, initial encounter; R73.9 Hyperglycemia, unspecified; S61.412A Laceration without foreign body of left hand, initial encounter; S51.801A Unspecified open wound of right forearm, initial encounter; S91.301A Unspecified open wound, right foot, initial encounter; E87.6 Hypokalemia; D53.9 Nutritional anemia, unspecified; E87.5 Hyperkalemia; Z87.891 Personal history of nicotine dependence; Z88.1 Allergy status to other antibiotic agents; Z88.8 Allergy status to other drugs, medicaments and biological substances; Z79.899 Other long term (current) drug therapy; Z79.52 Long term (current) use of systemic steroids; Z87.440 Personal history of urinary (tract) infections; Z86.19 Personal history of other infectious and parasitic diseases; Z90.79 Acquired absence of other genital organ(s); Z87.01 Personal history of pneumonia (recurrent); Z82.49 Family history of ischemic heart disease and other diseases of the circulatory system; Z79.51 Long term (current) use of inhaled steroids
CPT/HCPCS: 31500; 36415; 36600; 43753; 71010; 80048; 80053; 82550; 82553; 82805; 83036; 83735; 83880; 84100; 84132; 84484; 85025; 85379; 85610; 85730; 87070; 87205; 93005; 94002; 94003; 94640; 94660; 94760; 96361; 96372; 96374; 99291

== ENCOUNTER 2017-06-04 05:59 | Inpatient (IN) | payer MEDICARE ==
[2017-06-04] MEDS ORDERED: MIDAZOLAM (PF) 1 MG/ML 5 ML VIAL IV STA (06:03)
[2017-06-04] MEDS ORDERED: ALBUTEROL NEBULIZED 2.5 MG/3 ML INHALATION STA (06:07)
[2017-06-04] MEDS ORDERED: IPRATROPIUM 0.5 MG/2.5 ML NEBU INHALATION STA (06:07)
[2017-06-04] MEDS ORDERED: methylPREDNISolone SOD SUCCI 125 MG/2 ML VIAL IV STA (06:07)
--- NOTE | 2017-06-04 06:15 | ED ---
General Adult HPI - General Stated complaint: GAIL Time Seen by Provider: 06/04/17 06:07 Source: EMS, RN notes reviewed, old records reviewed - History of Present Illness Initial comments: 72-year-old female with history of COPD presents from EMS in severe respiratory distress with agonal respirations and near pulmonary arrest. Patient states family members called EMS for difficulty breathing. According EMS patient was tachypneic in the 40s, tachycardic and hypoxic. She was given 2 DuoNeb treatments. She was hypertensive. Patient's respiratory status decompensated in route. At the time of arrival. Patient was obtunded, agonal respirations. She was unresponsive to sternal rub. Pupils equal round reactive. Minimal air entry on pulmonary auscultation. - Related Data Home Medications Medication Instructions Recorded Confirmed Albuterol Sulfate [Proair Hfa] 2 puff INHALATION RT-Q4H PRN 10/29/13 05/29/17 Isosorbide Mononitrate ER [Imdur] 30 mg PO DAILY 10/29/13 05/29/17 Theophylline 24 Hour [Benigno-24] 300 mg PO DAILY 10/29/13 05/29/17 Ipratropium/Albuterol Sulfate 2 puff INHALATION RT-QID 09/23/15 05/29/17 [Combivent Respimat Inhaler] Lisinopril [Zestril] 20 mg PO BID 09/23/15 05/29/17 Furosemide [Lasix] 20 mg PO Q48H 12/16/16 05/29/17 Cholecalciferol (Vitamin D3) 2,000 unit PO DAILY 02/28/17 05/29/17 [Vitamin D3] Budesonide/Formoterol Fumarate 2 puff INHALATION RT-BID 05/29/17 05/29/17 [Symbicort 160-4.5 Mcg Inhaler] Ipratropium-Albuterol Nebulize 3 ml INHALATION RT-QID 05/29/17 05/29/17 [Duoneb 0.5 mg-3 mg/3 ml Soln] Nystatin 100,000 Unit/ml Susp 5 ml PO QID 05/29/17 05/29/17 [Mycostatin Oral Susp] Previous Rx's Medication Instructions Recorded ALPRAZolam [Xanax] 0.25 mg PO TID #20 tab 03/06/17 Amoxic-Pot Clav 875-125Mg 1 each PO BID #20 tab 06/01/17 [Augmentin 875-125] Formoterol Fumarate [Perforomist] 20 mcg INHALATION RT-BID #1 nebu 06/01/17 Pantoprazole [Protonix] 40 mg PO AC-BRKFST #30 tablet. 06/01/17 Allergies Allergy/AdvReac Type Severity Reaction Status Date / Time alendronate sodium Allergy Swelling Verified 05/29/17 11:58 [From Fosamax] Latex, Natural Rubber Allergy Rash/Hives Verified 05/29/17 11:58 levofloxacin [From Levaquin] AdvReac Diarrhea Verified 05/29/17 11:58 Review of Systems ROS Statement: Those systems with pertinent positive or pertinent negative responses have been documented in the HPI. ROS Other: All systems not noted in ROS Statement are negative. Limitations: ROS unobtainable due to patients medical condition Past Medical History Past Medical History: COPD, Hypertension, Pneumonia, Respiratory Disorder Additional Past Medical History / Comment(s): readmit with COPD and SOB. COPD, advanced, oxygen and steroid dependent, chronic hypoxic and hypercapnic respiratory failure, acute on chronic hypercapnic respiratory failure, previous UTI, hyponatremia, migraines but none for years, hepatitis A as a child , hemorrhoids, osteoporosis, hypertension, hyperlipidemia History of Any Multi-Drug Resistant Organisms: None Reported Past Surgical History: Tubal Ligation Past Anesthesia/Blood Transfusion Reactions: No Reported Reaction Additional Past Anesthesia/Blood Transfusion Reaction / Comment(s): Pt has never recieved blood. Past Psychological History: No Psychological Hx Reported Smoking Status: Former smoker Past Alcohol Use History: None Reported Past Drug Use History: None Reported - Past Family History Father History Unknown: Yes Family Medical History: No Reported History Mother Family Medical History: Coronary Artery Disease (CAD), Myocardial Infarction (MT ) Additional Family Medical History / Comment(s): Mother had CABG General Exam General appearance: obtunded, in distress Head exam: Present: atraumatic, normocephalic Eye exam: Present: normal appearance ENT exam: Present: mucous membranes dry Neck exam: Absent: meningismus Respiratory exam: Present: respiratory distress, wheezes, accessory muscle use, decreased breath sounds, prolonged expiratory Cardiovascular Exam: Present: normal rhythm, tachycardia GI/Abdominal exam: Present: soft. Absent: distended, tenderness, guarding Extremities exam: Present: normal inspection. Absent: pedal edema, other ( large fluid-filled bulla on the medial aspect of the left lower extremity) Neurological exam: Present: other (Patient is obtunded, pupils are equal round reactive. No spontaneous extremity movement) Skin exam: Present: warm, cyanosis, diaphoretic Course Vital Signs 06/04/17 06/04/17 06/04/17 06:00 06:20 06:22 Temperature 100.7 F H Pulse Rate 119 H 101 H Respiratory 30 H 35 H Rate Blood Pressure 215/107 O2 Sat by Pulse 84 L Oximetry EKG Findings - EKG Comments: EKG Findings:: EKG shows sinus tachycardia with biatrial enlargement, ventricular rate 119, PA interval 124, QRS duration 68, QTC 413. Repeat EKG at 638 shows sinus tachycardia, ventricular rate 110, PA interval 126, QRS duration 62, QTC 435, no signs of ST segment elevation Procedures - Intubation Time Out Performed: Yes Sedative: Versed Paralytic: Succinylcholine Laryngoscope: Sara Size: 3 ET Tube Size: 8 ET Tube Uncuffed: No Tube Secured Depth (cm): 23 Tube Secured Location: lips Tube Placement Confirmation: visualized tube passing through cords, equal breath sounds bilaterally, no breath sounds over epigastrium, confirmation by capnometry Patient Tolerated Procedure: well Intubation Complications: none Medical Decision Making - Medical Decision Making 72-year-old female presents in respiratory distress with impending respiratory failure and arrest. Patient is intubated upon arrival. No history obtained from the patient. Case is discussed with pulmonary sole leveler machine Dr. Ventura. Patient is well- known to the pulmonary service at this institution, she will be taken up to the unit as soon as possible. Lab studies pending. Chest x-ray shows no new focal infiltrate, ET tube 2 cm above kiera. She is started on broad-spectrum antibiotics and propofol drip for sedation. Diagnosis: Hypoxic hypercapnic respiratory failure secondary to COPD - Lab Data Result diagrams: 06/04/17 06:08 Lab Results 06/04/17 06/04/17 Range/Units 06:08 06:08 Sodium 141 (137-145) mmol/L Potassium 6.1 H (3.5-5.1) mmol/L Chloride 96 L (98-107) mmol/L Carbon Dioxide 41 H* (22-30) mmol/L Anion Gap 4 mmol/L BUN 28 H (7-17) mg/dL Creatinine 0.64 (0.52-1.04) mg/dL Est GFR (MDRD) Af Amer >60 (>60 ml/min/1.73 sqM) Est GFR (MDRD) Non-Af >60 (>60 ml/min/1.73 sqM) Glucose 161 H (74-99) mg/dL Plasma Lactic Acid Corwin 1.2 (0.7-2.0) mmol/L Calcium 9.4 (8.4-10.2) mg/dL Magnesium 2.2 (1.6-2.3) mg/dL Total Bilirubin 0.4 (0.2-1.3) mg/dL AST 45 H (14-36) U/L ALT 82 H (9-52) U/L Alkaline Phosphatase 67 (38-126) U/L Total Protein 6.1 L (6.3-8.2) g/dL Albumin 3.6 (3.5-5.0) g/dL Critical Care Time Critical Care Time: Yes Total Critical Care Time: 35 Disposition Clinical Impression: Acute exacerbation of chronic obstructive airways disease, Respiratory failure with hypoxia and hypercapnia Disposition: ADMITTED IP TO THIS [facility] Condition: Critical Decision to Admit Reason: Admit from EC Decision Date: 06/04/17 Decision Time: 06:40
[2017-06-04] MEDS: PROPOFOL 1,000 MG in EMPTY BAG 1 BAG IV SCH ×3 (06:22→20:29)
[2017-06-04] MEDS ORDERED: CEFEPIME 2 GM in SODIUM CHLORIDE 0.9% 50 ML IVPB STA (06:25)
[2017-06-04] MEDS ORDERED: VANCOMYCIN IV PER PHARMACY 1 EACH MISC MISCELLANE PRN (06:25)
[2017-06-04] MEDS ORDERED: NALOXONE 0.4 MG/ML 1 ML VIAL IV PRN (06:25)
[2017-06-04 06:32] LABS: ALT 82 U/L (9-52); AST 45 U/L (14-36); Albumin 3.6 g/dL (3.5-5.0); Alkaline Phosphatase 67 U/L (38-126); Blood Urea Nitrogen 28 mg/dL (7-17); Calcium 9.4 mg/dL (8.4-10.2); Chloride 96 mmol/L (98-107); Glucose 161 mg/dL (74-99); Magnesium 2.2 mg/dL (1.6-2.3); Potassium 6.1 mmol/L (3.5-5.1); Sodium 141 mmol/L (137-145); Total Bilirubin 0.4 mg/dL (0.2-1.3); Total Protein 6.1 g/dL (6.3-8.2)
[2017-06-04 06:38] LABS: Anion Gap 4 mmol/L
[2017-06-04 06:41] LABS: Basophils # (A) 0.1 k/uL (0-0.2); Basophils % (A) 1 %; Eosinophils # (A) 0.1 k/uL (0-0.7); Eosinophils % (A) 1 %; HCT 48.1 % (34.0-46.0); HGB 15.1 gm/dL (11.4-16.0); Lymphocytes # (A) 3.3 k/uL (1.0-4.8); Lymphocytes % (A) 25 %; MCH 32.9 pg (25.0-35.0); MCHC 31.3 g/dL (31.0-37.0); MCV 104.9 fL (80.0-100.0); Macrocytosis Moderate; Mean Platelet Volume 8.1; Monocytes # (A) 0.6 k/uL (0-1.0); Monocytes % (A) 5 %; Neutrophils # (A) 8.6 k/uL (1.3-7.7); Neutrophils % (A) 67 %; Platelet Count 251 k/uL (150-450); RBC 4.58 m/uL (3.80-5.40); RDW 14.4 % (11.5-15.5); WBC 12.8 k/uL (3.8-10.6)
[2017-06-04] MEDS ORDERED: SUCCINYLCHOLINE CHLORIDE VIAL 200 MG/10 ML VIAL IV STA (06:42)
[2017-06-04] MEDS ORDERED: SUCCINYLCHOLINE CHLORIDE 100 MG/5 ML SYR IV STA (06:42)
[2017-06-04] MEDS ORDERED: CALCIUM GLUCONATE 1,000 MG in SODIUM CHLORIDE 0.9% 100 ML IVPB ONE (06:45)
--- NOTE | 2017-06-04 06:47 | XR ---
EXAM: XR Chest, 1 View CLINICAL HISTORY: Reason: magdalena TECHNIQUE: Frontal view of the chest. COMPARISON: 05/29/17 FINDINGS: Lungs: Prominent interstitial disease within the mid to lower lungs, similar in appearance to the previous exam, likely chronic. No evidence for new consolidation. Findings again noted indicating chronic obstructive pulmonary disease. Pleural space: Unremarkable. No pneumothorax. Heart: Unremarkable. No cardiomegaly. Mediastinum: Unremarkable. Bones/joints: Stable degenerative osseous changes. Vasculature: Atherosclerosis. Tubes, lines and devices: Nasogastric tube extends into the stomach, side-port below the gastroesophageal junction. Endotracheal tube is noted with tip approximately 1.8 cm in the kiera. IMPRESSION: 1. Endotracheal and nasogastric tube placement. 2. Nonacute cardiopulmonary findings as noted.
[2017-06-04 06:48] LABS: Amorphous Sediment,Urine Occasional /hpf; Appearance,Urine Cloudy (Clear); Bilirubin,Urine Negative (Negative); Blood,Urine Negative (Negative); Color,Urine Yellow; Glucose,Urine (UA) Negative (Negative); Hyaline Casts,Urine 7 /lpf (0-2); Ketones,Urine Negative (Negative); Leukocyte Esterase,Urine Negative (Negative); Mucus,Urine Occasional /hpf; Nitrite,Urine Negative (Negative); Protein,Urine 1+ (Negative); RBC,Urine <1 /hpf (0-5); Specific Gravity,Urine 1.018 (1.001-1.035); Squamous Epithelial Cell,Urine <1 /hpf (0-4); WBC,Urine 1 /hpf (0-5)
[2017-06-04 06:49] LABS: Carbon Dioxide 41 mmol/L (22-30)
[2017-06-04 06:50] LABS: Creatine Kinase 28 U/L (30-135)
[2017-06-04] MEDS ORDERED: VANCOMYCIN 1,000 MG in SODIUM CHLORIDE 0.9% 250 ML IVPB ONE (07:00)
[2017-06-04] MEDS ORDERED: SODIUM CHLORIDE 0.9% 1,000 ML IV ONE ×2 (07:01→10:19)
[2017-06-04 07:03] LABS: Creatine Kinase MB 1.5 ng/mL (0.0-2.4); Troponin I <0.012 ng/mL (0.000-0.034)
[2017-06-04 07:32] LABS: Prothrombin Time 9.6 sec (9.0-12.0)
[2017-06-04 07:45] LABS: Partial Thromboplastin Time 19.8 sec (22.0-30.0)
[2017-06-04 08:24] LABS: ABG Base Excess 6.6 mmol/L; ABG HCO3 32 mmol/L (21-25); ABG PCO2 61 mmHg (35-45); ABG PH 7.34 (7.35-7.45); ABG PO2 390 mmHg (83-108); ABG TCO2 34 mmol/L (19-24)
[2017-06-04 08:49] LABS: Glucose,Whole Blood 129 mg/dL (75-99)
--- NOTE | 2017-06-04 10:41 | P.CNPUL ---
<Francia Crump - Last Filed: 06/04/17 10:20> History of Present Illness Consult date: 06/04/17 Requesting physician: Clem Delgado Reason for consult: dyspnea (Acute hypoxic respiratory failure) Chief complaint: Shortness of breath History of present illness: This is a 72-year-old female patient who follows with Dr. Cummings as her primary care physician. She has a history of hypertension. She also has a history of severe oxygen dependent, steroid dependent chronic obstructive pulmonary disease, Gold stage III/IV with FEV1 value of 33% of predicted. She' s been maintained on Combivent, Spiriva, theophylline and albuterol in the outpatient setting. She was just discharged from here on 06/01/2017 for another acute exacerbation admission. She had been admitted at least 4 times in the last 6 months for her COPD exacerbations. She presented to the emergency room this morning approximate 6 AM via EMS with severe respiratory distress. She was quite tachypneic in the 40s, tachycardic and hypoxic. She was given 2 DuoNeb treatments without much improvement. By the time she arrived to the emergency room she was obtunded with agonal respirations. She was subsequently intubated and placed on mechanical ventilator. She is seen today in the intensive care unit. Current vent settings assist control of 16 title volume 400 FiO2 of 50% and a PEEP of 5. Initial blood gases on 100% FiO2 revealed a pO2 of 390, pCO2 61, pH 7.34. She is sedated with propofol currently at 30 mcg/kg/m. She is receiving a second ointment saline bolus. She was given cefepime and vancomycin. Chest x-ray reveals changes of chronic obstructive pulmonary disease but no acute pulmonary process. White count 12.8. Bicarb 41. Potassium 6.1. Creatinine 0.64. Lactic acid 1.2. ProBNP 544. Influenza screen is negative. She does arouse to tactile stimuli. Review of Systems ROS unobtainable: due to endotracheal tube Past Medical History Past Medical History: Asthma, COPD, Eye Disorder, Hyperlipidemia, Hypertension, Pneumonia, Respiratory Disorder, Skin Disorder Additional Past Medical History / Comment(s): Pt recently admitted 05/29/17 with acute on chronic hypercapnic and hypoxic respiratory failure. Other Hx; Advanced oxygen and steroid dependent, chronic hypoxic and hypercapnic respiratory failure, vented once in past, acute on chronic hypercapnic respiratory failure, bronchitis, cataracts/glaucoma bilaterally, previous UTI, hyponatremia, migraines but none for years, hepatitis A as a child , hemorrhoids , osteoporosis, fragile skin. History of Any Multi-Drug Resistant Organisms: None Reported Past Surgical History: Tubal Ligation Additional Past Surgical History / Comment(s): Bilateral eye surgery-daughter thinks it was for glaucoma. Past Anesthesia/Blood Transfusion Reactions: No Reported Reaction Additional Past Anesthesia/Blood Transfusion Reaction / Comment(s): Pt has never recieved blood. Smoking Status: Former smoker - Past Family History Father History Unknown: Yes Family Medical History: No Reported History Additional Family Medical History / Comment(s): Father when pt was young. Mother Family Medical History: Coronary Artery Disease (CAD), Myocardial Infarction ([place] ) Additional Family Medical History / Comment(s): Mother had CABG Medications and Allergies Home Medications Medication Instructions Recorded Confirmed Type Albuterol Sulfate [Proair Hfa] 2 puff INHALATION RT-Q4H PRN 10/29/13 06/04/17 History Isosorbide Mononitrate ER [Imdur] 30 mg PO DAILY 10/29/13 06/04/17 History Theophylline 24 Hour [Benigno-24] 300 mg PO DAILY 10/29/13 06/04/17 History Ipratropium/Albuterol Sulfate 2 puff INHALATION RT-QID 09/23/15 06/04/17 History [Combivent Respimat Inhaler] Lisinopril [Zestril] 20 mg PO BID 09/23/15 06/04/17 History Furosemide [Lasix] 20 mg PO Q48H 12/16/16 06/04/17 History Cholecalciferol (Vitamin D3) 2,000 unit PO DAILY 02/28/17 06/04/17 History [Vitamin D3] ALPRAZolam [Xanax] 0.25 mg PO TID #20 tab 03/06/17 06/04/17 Rx Budesonide/Formoterol Fumarate 2 puff INHALATION RT-BID 05/29/17 06/04/17 History [Symbicort 160-4.5 Mcg Inhaler] Ipratropium-Albuterol Nebulize 3 ml INHALATION RT-QID 05/29/17 06/04/17 History [Duoneb 0.5 mg-3 mg/3 ml Soln] Nystatin 100,000 Unit/ml Susp 5 ml PO QID 05/29/17 06/04/17 History [Mycostatin Oral Susp] Formoterol Fumarate [Perforomist] 20 mcg INHALATION RT-BID #1 nebu 06/01/1707/21 Rx Pantoprazole [Protonix] 40 mg PO AC-BRKFST #30 tablet. 06/01/17 06/04/17 Rx Amoxic-Pot Clav 875-125Mg 1 tab PO BID 06/04/17 06/04/17 History [Augmentin 875-125] Allergies Allergy/AdvReac Type Severity Reaction Status Date / Time alendronate sodium Allergy Swelling Verified 06/04/17 07:10 [From Fosamax] Latex, Natural Rubber Allergy Rash/Hives Verified 06/04/17 07:10 levofloxacin [From Levaquin] AdvReac Diarrhea Verified 06/04/17 07:10 Physical Exam Vitals: Vital Signs Temp Pulse Resp BP Pulse Ox 06/04/17 10:00 78 15 84/42 99 06/04/17 09:30 79 15 101/47 99 06/04/17 09:12 16 06/04/17 09:00 98.2 F 87 16 98/50 99 06/04/17 08:15 98.9 F 90 16 101/52 100 06/04/17 08:00 98.9 F 94 16 110/54 99 06/04/17 07:41 104 H 16 125/55 100 06/04/17 07:40 101 H 06/04/17 07:10 94 115/56 99 06/04/17 06:55 102 H 111/53 99 06/04/17 06:50 112 H 126/66 99 06/04/17 06:48 104 H 137/60 99 06/04/17 06:40 108 H 67/46 99 06/04/17 06:36 110 H 89/57 99 06/04/17 06:22 101 H 06/04/17 06:20 35 H 06/04/17 06:19 122 H 189/114 100 06/04/17 06:00 100.7 F H 119 H 30 H 215/107 84 L Intake and Output 06/03/17 06/04/17 06/04/17 22:59 06:59 14:59 Intake Total 6.9 112.612 Output Total 85 Balance 6.9 27.612 Intake: IV 75 ns 75 Intake, IV Titration 6.9 37.612 Amount Propofol 1,000 mg In 6.9 37.612 Empty Bag 1 bag @ Per Protocol IV .Q0M [facility] Rx#: [id number] Output: Urine 85 Other: Voiding Method Indwelling Catheter Weight 55.338 kg GENERAL EXAM: Intubated, sedated.. HEAD: Normocephalic. EYES: Sluggish reaction of pupils, unequal size. NOSE: Clear with pink turbinates. THROAT: No erythema or exudates. NECK: No masses, no JVD. CHEST: No chest wall deformity. LUNGS: Equal air entry with no crackles, wheeze, rhonchi or dullness. CVS: S1 and S2 normal with no audible murmur, regular rhythm. ABDOMEN: No hepatosplenomegaly, normal bowel sounds, no guarding or rigidity. SPINE: No scoliosis or deformity SKIN: Multiple areas of ecchymosis nonhealing wounds. Thin frail secondary to chronic steroids. CENTRAL NERVOUS SYSTEM: Sedated. EXTREMITIES: There is no peripheral edema. No clubbing, no cyanosis. Peripheral pulses are intact. Results - Laboratory Findings CBC and BMP: 06/04/17 06:08 06/04/17 06:08 ABG ABG pH 7.34 (7.35-7.45) L 06/04/17 08:18 ABG pCO2 61 mmHg (35-45) H 06/04/17 08:18 ABG pO2 390 mmHg (83-108) H 06/04/17 08:18 ABG O2 Saturation 100.0 % (94-97) H 06/04/17 08:18 PT/INR, D-dimer PT 9.6 sec (9.0-12.0) 06/04/17 07:08 INR 1.0 (<1.2) 06/04/17 07:08 Abnormal lab findings: Abnormal Labs 06/04/17 06/04/17 06/04/17 06:08 06:08 06:08 WBC 12.8 H Hct 48.1 H MCV 104.9 H Neutrophils # 8.6 H APTT ABG pH ABG pCO2 ABG pO2 ABG HCO3 ABG Total CO2 ABG O2 Saturation Potassium 6.1 H Chloride 96 L Carbon Dioxide 41 H* BUN 28 H Glucose 161 H POC Glucose (mg/dL) AST 45 H ALT 82 H Total Creatine Kinase 28 L Total Protein 6.1 L Urine Appearance Urine Protein Amorphous Sediment Hyaline Casts Urine Mucus 06/04/17 06/04/17 06/04/17 06:31 07:08 08:18 WBC Hct MCV Neutrophils # APTT 19.8 L ABG pH 7.34 L ABG pCO2 61 H ABG pO2 390 H ABG HCO3 32 H ABG Total CO2 34 H ABG O2 Saturation 100.0 H Potassium Chloride Carbon Dioxide BUN Glucose POC Glucose (mg/dL) AST ALT Total Creatine Kinase Total Protein Urine Appearance Cloudy H Urine Protein 1+ H Amorphous Sediment Occasional H Hyaline Casts 7 H Urine Mucus Occasional H 06/04/17 08:47 WBC Hct MCV Neutrophils # APTT ABG pH ABG pCO2 ABG pO2 ABG HCO3 ABG Total CO2 ABG O2 Saturation Potassium Chloride Carbon Dioxide BUN Glucose POC Glucose (mg/dL) 129 H AST ALT Total Creatine Kinase Total Protein Urine Appearance Urine Protein Amorphous Sediment Hyaline Casts Urine Mucus - Diagnostic Findings Chest x-ray: image reviewed Assessment and Plan Assessment: Impression: #1 Acute on chronic hypoxic and hypercapnic respiratory failure requiring intubation mechanical ventilatory support secondary to severe oxygen dependent, steroid dependent, Gold stage III/IV chronic obstructive pulmonary disease with FEV1 value of 33% of predicted. #2 Chronic hypoxic and hypercapnic respiratory failure with multiple admissions of exacerbations. #3 Hyperkalemia. #4 History of hypertension. #5 Hyperlipidemia. #6 Osteoporosis. #7 Poor overall functional performance based any above-mentioned multiple comorbidities. Plan: The patient was seen and evaluated by Dr. Ventura. Her chest x-ray, ABGs and labs were all reviewed. We'll continue to titrate down the FiO2 will maintaining O2 saturations in the 90s. We'll continue with antibiotics. We'll continue with IV Solu-Medrol 60 mg every 6 hours. Pulmicort and Perforomist inhalations twice a day, DuoNeb inhalations every 4 hours. We'll utilize heparin for DVT prophylaxis. Protonix for GI prophylaxis. We will continue to follow and make further recommendations based on her clinical status. I, the cosigning physician, have performed a history and physical examination on the patient. Lung sounds are clear. Diminished throughout. Continues on mechanical ventilator. Maintaining good O2 saturations in the 90s on 50% FiO2. I have discussed the assessment and plan of care with my nurse practitioner, Francia Crump. I attest the above documented note as dictated by her. Time with Patient: Greater than 30 <Jordyn Ventura - Last Filed: 06/04/17 12:11> Physical Exam Vitals: Vital Signs Temp Pulse Resp BP Pulse Ox 06/04/17 11:07 74 06/04/17 11:00 76 15 84/46 99 06/04/17 10:58 75 06/04/17 10:30 72 15 82/43 100 06/04/17 10:00 78 15 84/42 99 06/04/17 09:30 79 15 101/47 99 06/04/17 09:12 16 06/04/17 09:00 98.2 F 87 16 98/50 99 06/04/17 08:15 98.9 F 90 16 101/52 100 06/04/17 08:00 98.9 F 94 16 110/54 99 06/04/17 07:41 104 H 16 125/55 100 06/04/17 07:40 101 H 06/04/17 07:10 94 115/56 99 06/04/17 06:55 102 H 111/53 99 06/04/17 06:50 112 H 126/66 99 06/04/17 06:48 104 H 137/60 99 06/04/17 06:40 108 H 67/46 99 06/04/17 06:36 110 H 89/57 99 06/04/17 06:22 101 H 06/04/17 06:20 35 H 06/04/17 06:19 122 H 189/114 100 06/04/17 06:00 100.7 F H 119 H 30 H 215/107 84 L Intake and Output 06/03/17 06/04/17 06/04/17 22:59 06:59 14:59 Intake Total 6.9 1312.612 Output Total 180 Balance 6.9 1132.612 Intake: IV 75 ns 75 Intake, IV Titration 6.9 1237.612 Amount Propofol 1,000 mg In 6.9 37.612 Empty Bag 1 bag @ Per Protocol IV .Q0M [facility] Rx#: [id number] Sodium Chloride 0.9% 1, 200 000 ml @ 100 mls/hr IV . Q10H [facility] Rx#:[id number] Sodium Chloride 0.9% 1, 1000 000 ml @ 999 mls/hr IV . Q1H1M [facility] Rx#:[id number] Output: Urine 180 Other: Voiding Method Indwelling Catheter Weight 55.338 kg Results - Laboratory Findings CBC and BMP: 06/04/17 06:08 06/04/17 06:08 ABG ABG pH 7.34 (7.35-7.45) L 06/04/17 08:18 ABG pCO2 61 mmHg (35-45) H 06/04/17 08:18 ABG pO2 390 mmHg (83-108) H 06/04/17 08:18 ABG O2 Saturation 100.0 % (94-97) H 06/04/17 08:18 PT/INR, D-dimer PT 9.6 sec (9.0-12.0) 06/04/17 07:08 INR 1.0 (<1.2) 06/04/17 07:08 Abnormal lab findings: Abnormal Labs 06/04/17 06/04/17 06/04/17 06:08 06:08 06:08 WBC 12.8 H Hct 48.1 H MCV 104.9 H Neutrophils # 8.6 H APTT ABG pH ABG pCO2 ABG pO2 ABG HCO3 ABG Total CO2 ABG O2 Saturation Potassium 6.1 H Chloride 96 L Carbon Dioxide 41 H* BUN 28 H Glucose 161 H POC Glucose (mg/dL) AST 45 H ALT 82 H Total Creatine Kinase 28 L Total Protein 6.1 L Urine Appearance Urine Protein Amorphous Sediment Hyaline Casts Urine Mucus 06/04/17 06/04/17 06/04/17 06:31 07:08 08:18 WBC Hct MCV Neutrophils # APTT 19.8 L ABG pH 7.34 L ABG pCO2 61 H ABG pO2 390 H ABG HCO3 32 H ABG Total CO2 34 H ABG O2 Saturation 100.0 H Potassium Chloride Carbon Dioxide BUN Glucose POC Glucose (mg/dL) AST ALT Total Creatine Kinase Total Protein Urine Appearance Cloudy H Urine Protein 1+ H Amorphous Sediment Occasional H Hyaline Casts 7 H Urine Mucus Occasional H 06/04/17 06/04/17 08:47 11:52 WBC Hct MCV Neutrophils # APTT ABG pH ABG pCO2 ABG pO2 ABG HCO3 ABG Total CO2 ABG O2 Saturation Potassium Chloride Carbon Dioxide BUN Glucose POC Glucose (mg/dL) 129 H 113 H AST ALT Total Creatine Kinase Total Protein Urine Appearance Urine Protein Amorphous Sediment Hyaline Casts Urine Mucus Assessment and Plan Assessment: Review the joint evaluation that was done along with a nurse practitioner. We' ll keep the patient a mechanical ventilator for the next 24 hours. We'll do the necessity vent changes. I attest and above-mentioned information. We'll try to start weaning as soon as the acute COPD exacerbation is improved.
[2017-06-04] MEDS: SODIUM CHLORIDE 0.9% 1,000 ML IV SCH ×2 (10:45→20:40)
[2017-06-04] MEDS: IPRATROPIUM-ALBUTEROL 3 ML NEB INHALATION SCH ×4 (10:52→22:57)
[2017-06-04] MEDS ORDERED: NOREPINEPHRIN 4 MG-0.9% NS PMX 4 MG/250 ML ML IV SCH (11:45)
[2017-06-04] MEDS: PANTOPRAZOLE 40 MG/10 ML VIAL IVP SCH (11:45)
[2017-06-04] MEDS: methylPREDNISolone SOD SUCCI 125 MG/2 ML VIAL IV SCH ×2 (11:45→18:09)
[2017-06-04 11:55] LABS: Glucose,Whole Blood 113 mg/dL (75-99)
[2017-06-04] MEDS: INSULIN ASPART 100 UNIT/ML 1 ML 10 ML VIAL SQ SCH ×2 (11:56→18:12)
[2017-06-04] MEDS: HEPARIN SODIUM,PORCINE 5,000 UNIT/ML 1 ML VIAL SQ SCH (16:08)
[2017-06-04] MEDS: PIPERACILLIN-TAZOBACTAM 3.375 GM in DEXTROSE/WATER 1 50ML.BAG IVPB SCH (16:10)
[2017-06-04 17:20] LABS: Hemoglobin A1C 5.8 % (4.0-6.0)
[2017-06-04 18:14] LABS: Glucose,Whole Blood 117 mg/dL (75-99)
[2017-06-04] MEDS: BUDESONIDE 1 MG/2 ML NEBU INHALATION SCH (19:14)
[2017-06-04] MEDS: FORMOTEROL FUMARATE 20 MCG/2 ML NEBU INHALATION SCH (19:14)
[2017-06-04] MEDS: VANCOMYCIN 1,000 MG in SODIUM CHLORIDE 0.9% 250 ML IVPB SCH (20:39)
--- NOTE | 2017-06-04 21:57 | P.HPIM ---
History of Present Illness H&P Date: 06/04/17 Chief Complaint: Shortness of breath Patient is a 72-year-old female with known history of hypertension, hyperlipidemia, chronic hypoxic and hypercapnic respiratory failure due to severe COPD oxygen and steroid dependent and with recent admission with acute COPD exacerbation presently ER with complaints of shortness of breath and was in respiratory distress. Patient does not have any fever or chills. Patient was subsequently intubated and is on mechanical ventilator. Currently sedated. And also patient was started on antibiotics in the form of vancomycin and cefepime. chest x-ray showed COPD changes. No acute pulmonary process. Influenza antigen negative. Complete review of systems could not be obtained from the patient Past Medical History Past Medical History: Asthma, COPD, Eye Disorder, Hyperlipidemia, Hypertension, Pneumonia, Respiratory Disorder, Skin Disorder Additional Past Medical History / Comment(s): Pt recently admitted 05/29/17 with acute on chronic hypercapnic and hypoxic respiratory failure. Other Hx; Advanced oxygen and steroid dependent, chronic hypoxic and hypercapnic respiratory failure, vented once in past, acute on chronic hypercapnic respiratory failure, bronchitis, cataracts/glaucoma bilaterally, previous UTI, hyponatremia, migraines but none for years, hepatitis A as a child , hemorrhoids , osteoporosis, fragile skin. History of Any Multi-Drug Resistant Organisms: None Reported Past Surgical History: Tubal Ligation Additional Past Surgical History / Comment(s): Bilateral eye surgery-daughter thinks it was for glaucoma. Past Anesthesia/Blood Transfusion Reactions: No Reported Reaction Additional Past Anesthesia/Blood Transfusion Reaction / Comment(s): Pt has never recieved blood. Smoking Status: Former smoker - Past Family History Father History Unknown: Yes Family Medical History: No Reported History Additional Family Medical History / Comment(s): Father when pt was young. Mother Family Medical History: Coronary Artery Disease (CAD), Myocardial Infarction ([place] ) Additional Family Medical History / Comment(s): Mother had CABG Medications and Allergies Home Medications Medication Instructions Recorded Confirmed Type Albuterol Sulfate [Proair Hfa] 2 puff INHALATION RT-Q4H PRN 10/29/13 06/04/17 History Isosorbide Mononitrate ER [Imdur] 30 mg PO DAILY 10/29/13 06/04/17 History Theophylline 24 Hour [Benigno-24] 300 mg PO DAILY 10/29/13 06/04/17 History Ipratropium/Albuterol Sulfate 2 puff INHALATION RT-QID 09/23/15 06/04/17 History [Combivent Respimat Inhaler] Lisinopril [Zestril] 20 mg PO BID 09/23/15 06/04/17 History Furosemide [Lasix] 20 mg PO Q48H 12/16/16 06/04/17 History Cholecalciferol (Vitamin D3) 2,000 unit PO DAILY 02/28/17 06/04/17 History [Vitamin D3] ALPRAZolam [Xanax] 0.25 mg PO TID #20 tab 03/06/17 06/04/17 Rx Budesonide/Formoterol Fumarate 2 puff INHALATION RT-BID 05/29/17 06/04/17 History [Symbicort 160-4.5 Mcg Inhaler] Ipratropium-Albuterol Nebulize 3 ml INHALATION RT-QID 05/29/17 06/04/17 History [Duoneb 0.5 mg-3 mg/3 ml Soln] Nystatin 100,000 Unit/ml Susp 5 ml PO QID 05/29/17 06/04/17 History [Mycostatin Oral Susp] Formoterol Fumarate [Perforomist] 20 mcg INHALATION RT-BID #1 nebu 06/01/1707/21 Rx Pantoprazole [Protonix] 40 mg PO AC-BRKFST #30 tablet. 06/01/17 06/04/17 Rx Amoxic-Pot Clav 875-125Mg 1 tab PO BID 06/04/17 06/04/17 History [Augmentin 875-125] Allergies Allergy/AdvReac Type Severity Reaction Status Date / Time alendronate sodium Allergy Swelling Verified 06/04/17 07:10 [From Fosamax] Latex, Natural Rubber Allergy Rash/Hives Verified 06/04/17 07:10 levofloxacin [From Levaquin] AdvReac Diarrhea Verified 06/04/17 07:10 Physical Exam Vitals: Vital Signs Temp Pulse Resp BP Pulse Ox 06/04/17 16:00 98.2 F 73 17 110/62 98 06/04/17 15:59 74 06/04/17 15:35 74 06/04/17 15:00 71 16 100/57 98 01/02/18 14:00 79 16 95/47 97 06/04/17 13:30 83 30 H 87/48 96 06/04/17 13:00 86 19 87/48 96 06/04/17 12:30 81 32 H 93/47 97 06/04/17 12:00 97.8 F 73 15 112/55 99 06/04/17 11:30 75 16 80/43 99 06/04/17 11:07 74 06/04/17 11:00 76 15 84/46 99 06/04/17 10:58 75 06/04/17 10:30 72 15 82/43 100 06/04/17 10:00 78 15 84/42 99 06/04/17 09:30 79 15 101/47 99 06/04/17 09:12 16 06/04/17 09:00 98.2 F 87 16 98/50 99 06/04/17 08:15 98.9 F 90 16 101/52 100 06/04/17 08:00 98.9 F 94 16 110/54 99 06/04/17 07:41 104 H 16 125/55 100 06/04/17 07:40 101 H 06/04/17 07:10 94 115/56 99 06/04/17 06:55 102 H 111/53 99 06/04/17 06:50 112 H 126/66 99 06/04/17 06:48 104 H 137/60 99 06/04/17 06:40 108 H 67/46 99 06/04/17 06:36 110 H 89/57 99 06/04/17 06:22 101 H 06/04/17 06:20 35 H 06/04/17 06:19 122 H 189/114 100 06/04/17 06:00 100.7 F H 119 H 30 H 215/107 84 L Intake and Output 06/04/17 06/04/17 06/04/17 06:59 14:59 22:59 Intake Total 6.9 1543.279 230.833 Output Total 360 205 Balance 6.9 1183.279 25.833 Intake: IV 75 ns 75 Intake, IV Titration 6.9 1468.279 230.833 Amount Norepinephrin 4 mg-0.9% 0 0 Ns Pmx 4 mg In 250 ml @ Titrate IV .Q0M [facility] Rx#: [id number] Propofol 1,000 mg In 6.9 68.279 30.833 Empty Bag 1 bag @ Per Protocol IV .Q0M [facility] Rx#: [id number] Sodium Chloride 0.9% 1, 400 200 000 ml @ 100 mls/hr IV . Q10H [facility] Rx#:[id number] Sodium Chloride 0.9% 1, 1000 000 ml @ 999 mls/hr IV . Q1H1M [facility] Rx#:[id number] Output: Urine 360 205 Other: Voiding Method Indwelling Catheter Weight 55.338 kg PHYSICAL EXAMINATION: Patient is lying in the bed comfortably, sedated and intubated HEENT: Normocephalic. Neck is supple. Pupils reactive. Nostrils clear. Oral cavity is moist. Ears reveal no drainage. Neck reveals no JVD, carotid bruits, or thyromegaly. CHEST EXAMINATION: Endotracheal tube in place. Trachea is central. Symmetrical expansion. Lung kent clear to auscultation and percussion. No wheezing CARDIAC: Normal S1, S2 with no gallops. No murmurs ABDOMEN: Soft. Bowel sounds normal. No organomegaly. No abdominal bruits. Extremities: reveal no edema. No clubbing or cyanosis Neurologically sedated and intubated. No focal deficits noted Skin: No rash. Multiple ecchymosis patches on the skin. Psychiatric: Operative. Nonsuicidal Musculoskeletal: No joint swelling or deformity. Normal range of motion. Results CBC & Chem 7: 06/04/17 06:08 06/04/17 06:08 Labs: Abnormal Lab Results - Last 24 Hours (Table) 06/04/17 06/04/17 06/04/17 Range/Units 06:08 06:08 06:08 WBC 12.8 H (3.8-10.6) k/uL Hct 48.1 H (34.0-46.0) % MCV 104.9 H (80.0-100.0) fL Neutrophils # 8.6 H (1.3-7.7) k/uL APTT (22.0-30.0) sec ABG pH (7.35-7.45) ABG pCO2 (35-45) mmHg ABG pO2 (83-108) mmHg ABG HCO3 (21-25) mmol/L ABG Total CO2 (19-24) mmol/L ABG O2 Saturation (94-97) % Potassium 6.1 H (3.5-5.1) mmol/L Chloride 96 L (98-107) mmol/L Carbon Dioxide 41 H* (22-30) mmol/L BUN 28 H (7-17) mg/dL Glucose 161 H (74-99) mg/dL POC Glucose (mg/dL) (75-99) mg/dL AST 45 H (14-36) U/L ALT 82 H (9-52) U/L Total Creatine Kinase 28 L (30-135) U/L Total Protein 6.1 L (6.3-8.2) g/dL Urine Appearance (Clear) Urine Protein (Negative) Amorphous Sediment (None) /hpf Hyaline Casts (0-2) /lpf Urine Mucus (None) /hpf 06/04/17 06/04/17 06/04/17 Range/Units 06:31 07:08 08:18 WBC (3.8-10.6) k/uL Hct (34.0-46.0) % MCV (80.0-100.0) fL Neutrophils # (1.3-7.7) k/uL APTT 19.8 L (22.0-30.0) sec ABG pH 7.34 L (7.35-7.45) ABG pCO2 61 H (35-45) mmHg ABG pO2 390 H (83-108) mmHg ABG HCO3 32 H (21-25) mmol/L ABG Total CO2 34 H (19-24) mmol/L ABG O2 Saturation 100.0 H (94-97) % Potassium (3.5-5.1) mmol/L Chloride (98-107) mmol/L Carbon Dioxide (22-30) mmol/L BUN (7-17) mg/dL Glucose (74-99) mg/dL POC Glucose (mg/dL) (75-99) mg/dL AST (14-36) U/L ALT (9-52) U/L Total Creatine Kinase (30-135) U/L Total Protein (6.3-8.2) g/dL Urine Appearance Cloudy H (Clear) Urine Protein 1+ H (Negative) Amorphous Sediment Occasional H (None) /hpf Hyaline Casts 7 H (0-2) /lpf Urine Mucus Occasional H (None) /hpf 06/04/17 06/04/17 Range/Units 08:47 11:52 WBC (3.8-10.6) k/uL Hct (34.0-46.0) % MCV (80.0-100.0) fL Neutrophils # (1.3-7.7) k/uL APTT (22.0-30.0) sec ABG pH (7.35-7.45) ABG pCO2 (35-45) mmHg ABG pO2 (83-108) mmHg ABG HCO3 (21-25) mmol/L ABG Total CO2 (19-24) mmol/L ABG O2 Saturation (94-97) % Potassium (3.5-5.1) mmol/L Chloride (98-107) mmol/L Carbon Dioxide (22-30) mmol/L BUN (7-17) mg/dL Glucose (74-99) mg/dL POC Glucose (mg/dL) 129 H 113 H (75-99) mg/dL AST (14-36) U/L ALT (9-52) U/L Total Creatine Kinase (30-135) U/L Total Protein (6.3-8.2) g/dL Urine Appearance (Clear) Urine Protein (Negative) Amorphous Sediment (None) /hpf Hyaline Casts (0-2) /lpf Urine Mucus (None) /hpf Microbiology - Last 24 Hours (Table) 06/04/17 07:40 Gram Stain - Preliminary Sputum Sputum Culture - Preliminary Thrombosis Risk Factor Assmnt - DVT/VTE Prophylaxis DVT/VTE Prophylaxis: Pharmacologic Prophylaxis ordered - Choose All That Apply Any of the Below Risk Factors Present?: Yes Each Factor Represents 1 point: Abnormal pulmonary function (COPD), Serious lung disease incl. pneumonia (< 1month) Other Risk Factors: Yes Each Risk Factor Represents 2 Points: Age 61-74 years Other congenital or acquired thrombophilia - If yes, enter type in comment: No Thrombosis Risk Factor Assessment Total Risk Factor Score: 4 Thrombosis Risk Factor Assessment Level: Moderate Risk Assessment and Plan Assessment: Acute on chronic hypoxic and hypercapnic respiratory failure secondary to COPD exacerbation currently intubated Chronic hypoxic and hypercapnic respiratory failure. Steroid and oxygen dependent Hypertension Hyperlipidemia Osteoporosis Addresses COPD DVT prophylaxis Plan: Patient is currently on ventilator. Pulmonary is following. Continue with IV steroids and breathing treatment and follow closely. Continue with current management and further recommendations based on clinical course. Prognosis is guarded due to advanced COPD. Time with Patient: Greater than 30
[2017-06-05] MEDS: INSULIN ASPART 100 UNIT/ML 1 ML 10 ML VIAL SQ SCH ×4 (00:14→17:23)
[2017-06-05 00:15] LABS: Glucose,Whole Blood 102 mg/dL (75-99)
[2017-06-05] MEDS: methylPREDNISolone SOD SUCCI 125 MG/2 ML VIAL IV SCH ×4 (00:18→17:35)
[2017-06-05] MEDS: PIPERACILLIN-TAZOBACTAM 3.375 GM in DEXTROSE/WATER 1 50ML.BAG IVPB SCH ×3 (00:18→15:42)
[2017-06-05] MEDS: HEPARIN SODIUM,PORCINE 5,000 UNIT/ML 1 ML VIAL SQ SCH ×4 (00:18→15:37)
[2017-06-05] MEDS: PROPOFOL 1,000 MG in EMPTY BAG 1 BAG IV SCH ×2 (03:00→09:54)
[2017-06-05] MEDS: IPRATROPIUM-ALBUTEROL 3 ML NEB INHALATION SCH ×5 (03:22→19:45)
[2017-06-05 04:40] LABS: Basophils % (A) 0 %; Eosinophils % (A) 0 %; HCT 35.4 % (34.0-46.0); Lymphocytes # (A) 0.3 k/uL (1.0-4.8); Lymphocytes % (A) 4 %; MCH 31.8 pg (25.0-35.0); MCHC 30.6 g/dL (31.0-37.0); MCV 103.9 fL (80.0-100.0); Macrocytosis Moderate; Monocytes # (A) 0.3 k/uL (0-1.0); Monocytes % (A) 4 %; Neutrophils # (A) 6.4 k/uL (1.3-7.7); Neutrophils % (A) 91 %; Platelet Count 172 k/uL (150-450); RBC 3.41 m/uL (3.80-5.40); RDW 15.8 % (11.5-15.5)
[2017-06-05 04:43] LABS: HGB 10.8 gm/dL (11.4-16.0)
[2017-06-05 04:49] LABS: ALT 65 U/L (9-52); AST 23 U/L (14-36); Albumin 2.3 g/dL (3.5-5.0); Alkaline Phosphatase 46 U/L (38-126); Anion Gap 3 mmol/L; Blood Urea Nitrogen 20 mg/dL (7-17); Calcium 8.1 mg/dL (8.4-10.2); Carbon Dioxide 33 mmol/L (22-30); Chloride 104 mmol/L (98-107); Glucose 105 mg/dL (74-99); Phosphorus 3.6 mg/dL (2.5-4.5); Potassium 3.7 mmol/L (3.5-5.1); Sodium 140 mmol/L (137-145); Total Bilirubin 0.3 mg/dL (0.2-1.3); Total Protein 4.2 g/dL (6.3-8.2)
[2017-06-05 05:02] LABS: ABG Base Excess 5.1 mmol/L; ABG HCO3 29 mmol/L (21-25); ABG PCO2 41 mmHg (35-45); ABG PH 7.46 (7.35-7.45); ABG PO2 88 mmHg (83-108); ABG TCO2 30 mmol/L (19-24)
[2017-06-05] MEDS: POTASSIUM CHLORIDE 10 MEQ, LIDOCAINE 2% INJ 10 MG in SODIUM CHLORIDE 0.9% 100 ML IV SCH ×2 (06:29→08:14)
[2017-06-05] MEDS: SODIUM CHLORIDE 0.9% 1,000 ML IV SCH ×2 (06:30→17:23)
[2017-06-05] MEDS: FORMOTEROL FUMARATE 20 MCG/2 ML NEBU INHALATION SCH ×2 (07:04→19:45)
[2017-06-05] MEDS: BUDESONIDE 1 MG/2 ML NEBU INHALATION SCH ×2 (07:04→19:45)
--- NOTE | 2017-06-05 07:17 | XR ---
EXAMINATION TYPE: XR chest 1V portable DATE OF EXAM: 06/05/2017 CLINICAL HISTORY: Difficulty breathing progress study. TECHNIQUE: Single AP portable upright view of the chest is obtained. COMPARISON: Chest x-ray from one day earlier and older studies. FINDINGS: An endotracheal and orogastric tube are satisfactory in position. 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 There is additio nal patchy opacity right lower lung redemonstrated new from older studies. There is developing left b asilar opacity now seen. Suspect developing tiny bilateral pleural effusions. Cardiac silhouette size is stable and within normal limits with atherosclerotic thoracic aorta. Osseous structures are demin eralized. IMPRESSION: Chronic emphysematous change with scattered basilar interstitial fibrosis and/or edema re demonstrated, there is new left greater than right bibasilar infiltrate and/or atelectasis and suspec shelley small to tiny bilateral pleural effusions noted.
[2017-06-05] MEDS: VANCOMYCIN 1,000 MG in SODIUM CHLORIDE 0.9% 250 ML IVPB SCH ×2 (08:14→20:17)
[2017-06-05] MEDS: PANTOPRAZOLE 40 MG/10 ML VIAL IVP SCH (08:19)
[2017-06-05 11:56] LABS: Glucose,Whole Blood 96 mg/dL (75-99)
--- NOTE | 2017-06-05 12:43 | P.PN ---
<Francia Crump - Last Filed: 06/05/17 12:34> Subjective Progress Note Date: 06/05/17 Principal diagnosis: This is a 72-year-old female patient who follows with Dr. Cummings as her primary care physician. She has a history of hypertension. She also has a history of severe oxygen dependent, steroid dependent chronic obstructive pulmonary disease, Gold stage III/IV with FEV1 value of 33% of predicted. She' s been maintained on Combivent, Spiriva, theophylline and albuterol in the outpatient setting. She was just discharged from here on 06/01/2017 for another acute exacerbation admission. She had been admitted at least 4 times in the last 6 months for her COPD exacerbations. She presented to the emergency room this morning approximate 6 AM via EMS with severe respiratory distress. She was quite tachypneic in the 40s, tachycardic and hypoxic. She was given 2 DuoNeb treatments without much improvement. By the time she arrived to the emergency room she was obtunded with agonal respirations. She was subsequently intubated and placed on mechanical ventilator. She is seen today in the intensive care unit. Current vent settings assist control of 16 title volume 400 FiO2 of 50% and a PEEP of 5. Initial blood gases on 100% FiO2 revealed a pO2 of 390, pCO2 61, pH 7.34. She is sedated with propofol currently at 30 mcg/kg/m. She is receiving a second ointment saline bolus. She was given cefepime and vancomycin. Chest x-ray reveals changes of chronic obstructive pulmonary disease but no acute pulmonary process. White count 12.8. Bicarb 41. Potassium 6.1. Creatinine 0.64. Lactic acid 1.2. ProBNP 544. Influenza screen is negative. She does arouse to tactile stimuli. The patient was seen again today 06/05/2017 in follow-up in the intensive care unit. She remains intubated and on the mechanical ventilator. Current settings assist control of 16, tidal volume 400, FiO2 35% and a PEEP of 5. Morning blood gases reveal pO2 of 88, pCO2 41, pH 7.46. She is arousable to verbal stimuli. She is following simple commands on 40 mics of propofol. She remained afebrile. Hemodynamically stable. Not requiring any pressors. Blood culture reveals no growth. Sputum Culture pending. White count 7.0. Hemoglobin 10.8. Creatinine 0.50. Objective - Vital Signs Vital signs: Vital Signs Temp 98.5 F 06/05/17 08:00 Pulse 73 06/05/17 11:30 Resp 15 06/05/17 10:00 BP 152/77 06/05/17 10:00 Pulse Ox 98 06/05/17 10:00 Intake & Output 06/04/17 06/05/17 06/05/17 18:59 06:59 18:59 Intake Total 2024.112 1831.667 750.000 Output Total 800 359 115 Balance 6355.882 3626.667 635.000 Weight 57 kg Intake: IV 75 1562.5 650 Piperacillin-Tazobactam 3 62.5 .375 gm In Dextrose/Water 1 50ml.bag @ 12.5 mls/hr IVPB Q8HR [facility] Rx#: [id number] Potassium Chloride 10 meq 200 Lidocaine 2% Inj 10 mg In Sodium Chloride 0.9% 100 ml @ 100 mls/hr IV Q1HR [facility] Rx#:[id number] Sodium Chloride 0.9% 1, 1000 200 000 ml @ 100 mls/hr IV . Q10H [facility] Rx#:[id number] Vancomycin 1,000 mg In 500 250 Sodium Chloride 0.9% 250 ml @ 125 mls/hr IVPB Q12H [facility] Rx#:[id number] ns 75 Intake, IV Titration 1949.112 269.167 100.000 Amount Norepinephrin 4 mg-0.9% 0 0 Ns Pmx 4 mg In 250 ml @ Titrate IV .Q0M [facility] Rx#: [id number] Piperacillin-Tazobactam 3 50 .375 gm In Dextrose/Water 1 50ml.bag @ 12.5 mls/hr IVPB Q8HR [facility] Rx#: [id number] Propofol 1,000 mg In 99.112 169.167 100.000 Empty Bag 1 bag @ Per Protocol IV .Q0M [facility] Rx#: [id number] Sodium Chloride 0.9% 1, 800 100 000 ml @ 100 mls/hr IV . Q10H [facility] Rx#:[id number] Sodium Chloride 0.9% 1, 1000 000 ml @ 999 mls/hr IV . Q1H1M [facility] Rx#:[id number] Output: Urine 800 359 115 Other: Voiding Method Indwelling Catheter Indwelling Catheter Indwelling Catheter - Exam GENERAL EXAM: Intubated, sedated.. HEAD: Normocephalic. EYES: Sluggish reaction of pupils, unequal size. NOSE: Clear with pink turbinates. THROAT: No erythema or exudates. NECK: No masses, no JVD. CHEST: No chest wall deformity. LUNGS: Equal air entry with no crackles, wheeze, rhonchi or dullness. CVS: S1 and S2 normal with no audible murmur, regular rhythm. ABDOMEN: No hepatosplenomegaly, normal bowel sounds, no guarding or rigidity. SPINE: No scoliosis or deformity SKIN: Multiple areas of ecchymosis nonhealing wounds. Thin frail secondary to chronic steroids. CENTRAL NERVOUS SYSTEM: Sedated. EXTREMITIES: There is no peripheral edema. No clubbing, no cyanosis. Peripheral pulses are intact. - Labs CBC & Chem 7: 06/05/17 03:42 06/05/17 03:42 Labs: Abnormal Lab Results - Last 24 Hours (Table) 06/04/17 06/05/17 06/05/17 Range/Units 18:11 00:13 03:42 RBC 3.41 L (3.80-5.40) m/uL Hgb 10.8 L D (11.4-16.0) gm/dL MCV 103.9 H (80.0-100.0) fL MCHC 30.6 L (31.0-37.0) g/dL RDW 15.8 H (11.5-15.5) % Lymphocytes # 0.3 L (1.0-4.8) k/uL ABG pH (7.35-7.45) ABG HCO3 (21-25) mmol/L ABG Total CO2 (19-24) mmol/L Carbon Dioxide (22-30) mmol/L BUN (7-17) mg/dL Creatinine (0.52-1.04) mg/dL Glucose (74-99) mg/dL POC Glucose (mg/dL) 117 H 102 H (75-99) mg/dL Calcium (8.4-10.2) mg/dL ALT (9-52) U/L Total Protein (6.3-8.2) g/dL Albumin (3.5-5.0) g/dL 01/03/18 01/03/18 Range/Units 03:42 04:45 RBC (3.80-5.40) m/uL Hgb (11.4-16.0) gm/dL MCV (80.0-100.0) fL MCHC (31.0-37.0) g/dL RDW (11.5-15.5) % Lymphocytes # (1.0-4.8) k/uL ABG pH 7.46 H (7.35-7.45) ABG HCO3 29 H (21-25) mmol/L ABG Total CO2 30 H (19-24) mmol/L Carbon Dioxide 33 H (22-30) mmol/L BUN 20 H (7-17) mg/dL Creatinine 0.50 L (0.52-1.04) mg/dL Glucose 105 H (74-99) mg/dL POC Glucose (mg/dL) (75-99) mg/dL Calcium 8.1 L (8.4-10.2) mg/dL ALT 65 H (9-52) U/L Total Protein 4.2 L (6.3-8.2) g/dL Albumin 2.3 L (3.5-5.0) g/dL Microbiology - Last 24 Hours (Table) 06/04/17 06:08 Blood Culture - Preliminary Blood No Growth after 24 hours 06/04/17 07:40 Gram Stain - Preliminary Sputum Sputum Culture - Preliminary Assessment and Plan Assessment: Impression: #1 Acute on chronic hypoxic and hypercapnic respiratory failure requiring intubation mechanical ventilatory support secondary to severe oxygen dependent, steroid dependent, Gold stage III/IV chronic obstructive pulmonary disease with FEV1 value of 33% of predicted. #2 Chronic hypoxic and hypercapnic respiratory failure with multiple admissions of exacerbations. #3 Hyperkalemia. #4 History of hypertension. #5 Hyperlipidemia. #6 Osteoporosis. #7 Poor overall functional performance based any above-mentioned multiple comorbidities. Plan: The patient was seen and evaluated by Dr. Ventura. Her chest x-ray, ABGs and labs were all reviewed. We will give the patient a trial on CPAP of 5 and pressure support of 8 plan to extubate her to BiPAP if tolerated. We'll continue with antibiotics. We'll continue with IV Solu-Medrol 60 mg every 6 hours. Pulmicort and Perforomist inhalations twice a day, DuoNeb inhalations every 4 hours. We'll utilize heparin for DVT prophylaxis. Protonix for GI prophylaxis. We will continue to follow and make further recommendations based on her clinical status. Critical Care time 36 minutes. I, the cosigning physician, have performed a history and physical examination on the patient. Lung sounds are clear. Diminished throughout. Continues on mechanical ventilator. Maintaining good O2 saturations in the 90s on 35% FiO2. I have discussed the assessment and plan of care with my nurse practitioner, Francia Crump. I attest the above documented note as dictated by her. Time with Patient: Greater than 30 <Jordyn Ventura - Last Filed: 06/05/17 16:08> Objective - Vital Signs Vital signs: Vital Signs Temp 98.5 F 06/05/17 16:00 Pulse 90 06/05/17 16:00 Resp 12 06/05/17 16:00 BP 186/88 06/05/17 16:00 Pulse Ox 96 06/05/17 16:00 Intake & Output 06/04/17 06/05/17 06/05/17 18:59 06:59 18:59 Intake Total 2024.112 5317.146 2663.000 Output Total 800 359 370 Balance 4320.440 0290.667 880.000 Weight 57 kg Intake: IV 75 1562.5 1150.0 Piperacillin-Tazobactam 3 62.5 75.0 .375 gm In Dextrose/Water 1 50ml.bag @ 12.5 mls/hr IVPB Q8HR [facility] Rx#: [id number] Potassium Chloride 10 meq 200 Lidocaine 2% Inj 10 mg In Sodium Chloride 0.9% 100 ml @ 100 mls/hr IV Q1HR [facility] Rx#:[id number] Sodium Chloride 0.9% 1, 1000 500 000 ml @ 100 mls/hr IV . Q10H [facility] Rx#:[id number] Vancomycin 1,000 mg In 500 375 Sodium Chloride 0.9% 250 ml @ 125 mls/hr IVPB Q12H [facility] Rx#:[id number] ns 75 Intake, IV Titration 1949.112 269.167 100.000 Amount Norepinephrin 4 mg-0.9% 0 0 Ns Pmx 4 mg In 250 ml @ Titrate IV .Q0M [facility] Rx#: [id number] Piperacillin-Tazobactam 3 50 .375 gm In Dextrose/Water 1 50ml.bag @ 12.5 mls/hr IVPB Q8HR [facility] Rx#: [id number] Propofol 1,000 mg In 99.112 169.167 100.000 Empty Bag 1 bag @ Per Protocol IV .Q0M [facility] Rx#: [id number] Sodium Chloride 0.9% 1, 800 100 000 ml @ 100 mls/hr IV . Q10H [facility] Rx#:[id number] Sodium Chloride 0.9% 1, 1000 000 ml @ 999 mls/hr IV . Q1H1M [facility] Rx#:[id number] Output: Urine 800 359 370 Other: Voiding Method Indwelling Catheter Indwelling Catheter Indwelling Catheter - Labs CBC & Chem 7: 06/05/17 03:42 06/05/17 03:42 Labs: Abnormal Lab Results - Last 24 Hours (Table) 06/04/17 06/05/17 06/05/17 Range/Units 18:11 00:13 03:42 RBC 3.41 L (3.80-5.40) m/uL Hgb 10.8 L D (11.4-16.0) gm/dL MCV 103.9 H (80.0-100.0) fL MCHC 30.6 L (31.0-37.0) g/dL RDW 15.8 H (11.5-15.5) % Lymphocytes # 0.3 L (1.0-4.8) k/uL ABG pH (7.35-7.45) ABG HCO3 (21-25) mmol/L ABG Total CO2 (19-24) mmol/L Carbon Dioxide (22-30) mmol/L BUN (7-17) mg/dL Creatinine (0.52-1.04) mg/dL Glucose (74-99) mg/dL POC Glucose (mg/dL) 117 H 102 H (75-99) mg/dL Calcium (8.4-10.2) mg/dL ALT (9-52) U/L Total Protein (6.3-8.2) g/dL Albumin (3.5-5.0) g/dL 06/05/17 06/05/17 Range/Units 03:42 04:45 RBC (3.80-5.40) m/uL Hgb (11.4-16.0) gm/dL MCV (80.0-100.0) fL MCHC (31.0-37.0) g/dL RDW (11.5-15.5) % Lymphocytes # (1.0-4.8) k/uL ABG pH 7.46 H (7.35-7.45) ABG HCO3 29 H (21-25) mmol/L ABG Total CO2 30 H (19-24) mmol/L Carbon Dioxide 33 H (22-30) mmol/L BUN 20 H (7-17) mg/dL Creatinine 0.50 L (0.52-1.04) mg/dL Glucose 105 H (74-99) mg/dL POC Glucose (mg/dL) (75-99) mg/dL Calcium 8.1 L (8.4-10.2) mg/dL ALT 65 H (9-52) U/L Total Protein 4.2 L (6.3-8.2) g/dL Albumin 2.3 L (3.5-5.0) g/dL Microbiology - Last 24 Hours (Table) 06/04/17 07:40 Gram Stain - Preliminary Sputum Sputum Culture - Preliminary Aspergillus species 06/04/17 06:08 Blood Culture - Preliminary Blood No Growth after 24 hours Assessment and Plan Assessment: This is a joint evaluation that was done along with the nurse practitioner. The patient was seen and examined. I attest to the above-mentioned information. As mentioned earlier, this patient has advanced lung disease. She may not tolerate the regular weaning protocols. This morning, I took her off the sedation I kept only on 5 mg of Diprivan. At that time, she was wide awake. Weaning parameters were checked. She was given a brief trial with pressure support of 5 and PEEP of 5 which she was able to tolerate. Following that the patient was extubated to BiPAP. She'll be kept in the intensive care unit for close monitoring of respirator status knowing that she has advanced COPD. She is an increased risk of going again back to respiratory failure. Her peak air pressure was nonelevated on the mechanical ventilator. She is moving adequate air and her bronchospasm wheezing has improved compared to yesterday. We'll continue the bronchodilators. We'll continue to systemic steroids. Chest x-ray from today shows hyperinflation without any acute abnormalities. The patient has chronic emphysematous changes scattered bibasilar interstitial fibrotic changes. We will continue to follow. Condition remains critical. There is a critically care evaluation that was done and more than 30 minutes.
[2017-06-05] MEDS: ALPRAZolam 0.25 MG TAB PO PRN (15:37)
[2017-06-05] MEDS ORDERED: cloNIDine HCL 0.1 MG TAB PO PRN (17:15)
[2017-06-05 17:19] LABS: Glucose,Whole Blood 104 mg/dL (75-99)
[2017-06-05] MEDS: hydrALAZINE HCL 20 MG/ML 1 ML VIAL IVP PRN (17:28)
--- NOTE | 2017-06-05 17:47 | PN ---
PROGRESS NOTE DATE OF SERVICE: 06/05/2017 This 72-year-old woman who was admitted with COPD exacerbation acute hypoxic hypercarbic respiratory failure is being closely monitored. The patient is extubated. Patient is mildly confused. The patient is on BiPAP at this time. BiPAP pressures noted. The most recent chest x-ray was reviewed and showed chronic emphysematous changes and bibasilar interstitial fibrosis, possibly. The patient had a significant severe COPD. Dr. Ventura is following the patient closely. PAST MEDICAL HISTORY: Reviewed. Review of systems could not be taken. The patient is still drowsy. CURRENT MEDICATIONS: Reviewed and include: 1. DuoNeb q.i.d. and p.r.n. 2. Xanax 0.5 t.i.d. 3. Pulmicort 1 mg b.i.d. 4. Perforomist 20 mg b.i.d. 5. Heparin 5000 subcu q.h.s. 6. NovoLog scale. 7. Solu-Medrol 60 IV q.6h. 8. Vancomycin per pharmacy. 9. Narcan 0.2 q.2h p.r.n. 10.Levophed drip. 11.Protonix 40 mg daily. 12.Zosyn 3.275 IV q.8h. PHYSICAL EXAM: Patient is stuporous. Pulse is 90, blood pressure is 196/80, respiration 12, temperature 98.4, pulse ox 98% on 2 L. HEENT: Conjunctivae normal. Oral mucosa moist. NECK: No jugular venous distention. No carotid bruit. No lymph node enlargement. CARDIOVASCULAR: S1, S2. No S3, no S4. RESPIRATORY: Breath sounds diminished in the bases. A few scattered rhonchi and expiratory wheezing and crackles. ABDOMEN: Soft, nontender. No mass palpable. LEGS: No edema, no swelling. NERVOUS SYSTEM: Higher functions as mentioned earlier. Moves all four limbs. No focal deficits. SKIN: No rashes. LABS: WBC 7, hemoglobin 10.8, MCV 103. CBC noted, otherwise albumin is 2.3. ASSESSMENT: 1. Chronic obstructive pulmonary disease acute exacerbation with acute purulent tracheobronchitis as well as acute on chronic hypoxic hypercarbic respiratory failure status post mechanical ventilation. 2. Chronic hypoxic hypercapnic respiratory failure, at home O2. 3. Severe chronic obstructive pulmonary disease. 4. Accelerated hypertension. 5. Hypertension. 6. Hyperlipidemia. 7. Osteoporosis. 8. DVT prophylaxis. 9. Anemia microcytic possibly nutritional. RECOMMENDATIONS AND DISCUSSION: This 72-year-old woman who presented with multiple complex medical issues, will monitor the patient closely. Continue the current management and symptomatic treatment at this time. Continue steroids. Continue the bronchodilators. I would also recommend p.r.n. hydralazine and clonidine for blood pressure control. Otherwise, DVT prophylaxis. Resume the medications. Home medications once the patient is p.o. Guarded prognosis because of multiple complex medical issues. Further recommendations to follow. Avoid sedatives for now and continue to monitor. Medication reconciliation also done. See orders for details. Discussed with staff. Further recommendations to follow. MMODL / IJN: [id number] /
[2017-06-05] MEDS: NYSTATIN 100,000 UNIT/ML SUSP 500,000 UNIT/5 ML CUP PO SCH ×2 (19:09→22:01)
[2017-06-05] MEDS: LISINOPRIL 20 MG TAB PO SCH (22:01)
[2017-06-06] MEDS: IPRATROPIUM-ALBUTEROL 3 ML NEB INHALATION SCH ×7 (00:07→23:23)
[2017-06-06] MEDS: HEPARIN SODIUM,PORCINE 5,000 UNIT/ML 1 ML VIAL SQ SCH ×3 (00:08→16:57)
[2017-06-06] MEDS: PIPERACILLIN-TAZOBACTAM 3.375 GM in DEXTROSE/WATER 1 50ML.BAG IVPB SCH ×3 (00:20→17:07)
[2017-06-06] MEDS: methylPREDNISolone SOD SUCCI 125 MG/2 ML VIAL IV SCH ×4 (00:21→17:07)
[2017-06-06] MEDS: SODIUM CHLORIDE 0.9% 1,000 ML IV SCH ×2 (04:38→13:07)
[2017-06-06] MEDS: hydrALAZINE HCL 20 MG/ML 1 ML VIAL IVP PRN (04:39)
[2017-06-06 06:03] LABS: Basophils % (A) 0 %; Eosinophils % (A) 0 %; HCT 40.1 % (34.0-46.0); HGB 12.3 gm/dL (11.4-16.0); Lymphocytes # (A) 0.2 k/uL (1.0-4.8); Lymphocytes % (A) 3 %; MCH 31.1 pg (25.0-35.0); MCHC 30.6 g/dL (31.0-37.0); MCV 101.6 fL (80.0-100.0); Macrocytosis Slight; Monocytes # (A) 0.4 k/uL (0-1.0); Monocytes % (A) 5 %; Neutrophils # (A) 7.4 k/uL (1.3-7.7); Neutrophils % (A) 91 %; Platelet Count 209 k/uL (150-450); RBC 3.94 m/uL (3.80-5.40); RDW 15.6 % (11.5-15.5); WBC 8.1 k/uL (3.8-10.6)
[2017-06-06 06:14] LABS: ALT 72 U/L (9-52); AST 25 U/L (14-36); Albumin 2.8 g/dL (3.5-5.0); Alkaline Phosphatase 53 U/L (38-126); Anion Gap 3 mmol/L; Blood Urea Nitrogen 22 mg/dL (7-17); Calcium 8.5 mg/dL (8.4-10.2); Carbon Dioxide 31 mmol/L (22-30); Chloride 107 mmol/L (98-107); Glucose 119 mg/dL (74-99); Magnesium 2.2 mg/dL (1.6-2.3); Potassium 3.9 mmol/L (3.5-5.1); Sodium 141 mmol/L (137-145); Total Bilirubin 0.3 mg/dL (0.2-1.3)
[2017-06-06] MEDS: FORMOTEROL FUMARATE 20 MCG/2 ML NEBU INHALATION SCH ×2 (06:57→19:53)
[2017-06-06] MEDS: BUDESONIDE 1 MG/2 ML NEBU INHALATION SCH ×2 (06:58→19:53)
[2017-06-06] MEDS ORDERED: POTASSIUM CHLORIDE ER 20 MEQ TAB.ER PO SCH (07:00)
[2017-06-06] MEDS ORDERED: VANCOMYCIN TROUGH DUE 1 EACH MISC MISCELLANE ONE (07:00)
--- NOTE | 2017-06-06 07:28 | XR ---
EXAMINATION TYPE: XR chest 1V portable DATE OF EXAM: 06/06/2017 COMPARISON: 06/05/2017 INDICATION: Respiratory failure TECHNIQUE: Single frontal view of the chest is obtained. FINDINGS: The heart size is normal. The pulmonary vasculature is normal. There is a consolidation in the right lower lobe. Mild diffuse increased lung markings are through th e bilateral lung bases. The endotracheal tube and nasogastric tube is been removed. Overlie the chest. IMPRESSION: 1. Worsening right lower lobe consolidation. Correlate for pneumonia. 2. Some diffuse increased lung markings are through the lung bases. Consider some additional infectio us etiology, or pulmonary edema within the differential.
[2017-06-06] MEDS: ALPRAZolam 0.25 MG TAB PO PRN ×2 (08:12→13:14)
[2017-06-06] MEDS: NYSTATIN 100,000 UNIT/ML SUSP 500,000 UNIT/5 ML CUP PO SCH ×4 (08:12→21:01)
[2017-06-06] MEDS: VANCOMYCIN 1,000 MG in SODIUM CHLORIDE 0.9% 250 ML IVPB SCH (08:12)
[2017-06-06] MEDS: PANTOPRAZOLE 40 MG/10 ML VIAL IVP SCH (08:13)
[2017-06-06] MEDS: FUROSEMIDE 20 MG TAB PO SCH (08:13)
[2017-06-06] MEDS: THEOPHYLLINE 24 HOUR 300 MG CAP.ER.24H PO SCH (08:13)
[2017-06-06] MEDS: LISINOPRIL 20 MG TAB PO SCH ×2 (08:13→21:01)
[2017-06-06] MEDS: ISOSORBIDE MONONITRATE ER 30 MG TAB.ER.24H PO SCH (08:14)
--- NOTE | 2017-06-06 10:55 | CT ---
EXAMINATION TYPE: CT chest wo con DATE OF EXAM: 06/06/2017 COMPARISON: Chest radiograph dated 06/06/2017 HISTORY: shortness of breath CT DLP: 237.8 mGycm. Automated Exposure Control for Dose Reduction was Utilized. TECHNIQUE: CT scan of the thorax is performed without IV contrast. This limits evaluation of the med iastinum and solid viscera the upper abdomen. FINDINGS: LUNGS: There is biapical pleural-parenchymal scarring. Severe centrilobular emphysematous changes are seen throughout the lungs, most pronounced at the lung apices. Reticular nodular peripheral basilar predominant pattern with honeycombing is noted at the lung bases suggesting fibrosis. Punctate granul luis fernando is present within the superior segment of the right lower lobe. Punctate left basilar granuloma i s also identified. New patchy groundglass left upper lobe opacity is seen on series 4 image 18. No pulmonary masses. Sma ll bilateral pleural effusions, right greater than left are seen with associated bibasilar subsegment al atelectasis. The lungs are grossly clear, there is no concerning parenchymal mass or nodule identi fied. There is no pleural effusion or pneumothorax seen. The tracheobronchial tree is patent. MEDIASTINUM: Lack of IV contrast is noted to limit evaluation for mediastinal and especially hilar ad enopathy. Calcified hilar granulomas are present. Moderate calcific atheromatous changes are seen of the thoracic aorta. Marked coronary artery three-vessel calcifications are again present. There are n o definitive greater than 1 cm hilar or mediastinal lymph nodes. No cardiomegaly or pericardial eff usion is seen. Ascending thoracic aorta is within normal limits of size measuring 3.2 cm. The main pu lmonary artery is also nonenlarged measuring up to 2.3 cm. OTHER: Numerous punctate splenic granulomas are seen in the upper abdomen. Similar mild compression d eformity of the T4 and T5 vertebral bodies with new endplate sclerosis of the T4 vertebral body at th e superior endplate are noted. Multilevel mild degenerative changes of the thoracic spine are seen. IMPRESSION: 1. New small bilateral pleural effusions, right greater than left with associated bibasilar subsegmen clinton dependent atelectasis. 2. New patchy left upper lobe groundglass opacity that may be inflammatory, infectious or represent e kevin developing neoplasm in this high-risk patient. Therefore three-month short-term follow-up chest CT is recommended to evaluate for resolution or progression. 3. Findings favoring pulmonary fibrosis superimposed upon extensive centrilobular emphysematous manning es. 4. Redemonstration of severe three-vessel coronary artery calcifications. 5. No new retropulsion of the mild compression deformities of the T4 and T5 vertebral bodies.
--- NOTE | 2017-06-06 11:57 | P.PN ---
<TheronFrancia schmid - Last Filed: 06/06/17 11:48> Subjective Progress Note Date: 06/06/17 Principal diagnosis: Acute on chronic hypoxic and hypercapnic respiratory failure. This is a 72-year-old female patient who follows with Dr. Cummings as her primary care physician. She has a history of hypertension. She also has a history of severe oxygen dependent, steroid dependent chronic obstructive pulmonary disease, Gold stage III/IV with FEV1 value of 33% of predicted. She' s been maintained on Combivent, Spiriva, theophylline and albuterol in the outpatient setting. She was just discharged from here on 06/01/2017 for another acute exacerbation admission. She had been admitted at least 4 times in the last 6 months for her COPD exacerbations. She presented to the emergency room this morning approximate 6 AM via EMS with severe respiratory distress. She was quite tachypneic in the 40s, tachycardic and hypoxic. She was given 2 DuoNeb treatments without much improvement. By the time she arrived to the emergency room she was obtunded with agonal respirations. She was subsequently intubated and placed on mechanical ventilator. She is seen today in the intensive care unit. Current vent settings assist control of 16 title volume 400 FiO2 of 50% and a PEEP of 5. Initial blood gases on 100% FiO2 revealed a pO2 of 390, pCO2 61, pH 7.34. She is sedated with propofol currently at 30 mcg/kg/m. She is receiving a second ointment saline bolus. She was given cefepime and vancomycin. Chest x-ray reveals changes of chronic obstructive pulmonary disease but no acute pulmonary process. White count 12.8. Bicarb 41. Potassium 6.1. Creatinine 0.64. Lactic acid 1.2. ProBNP 544. Influenza screen is negative. She does arouse to tactile stimuli. The patient was seen again today 06/05/2017 in follow-up in the intensive care unit. She remains intubated and on the mechanical ventilator. Current settings assist control of 16, tidal volume 400, FiO2 35% and a PEEP of 5. Morning blood gases reveal pO2 of 88, pCO2 41, pH 7.46. She is arousable to verbal stimuli. She is following simple commands on 40 mics of propofol. She remained afebrile. Hemodynamically stable. Not requiring any pressors. Blood culture reveals no growth. Sputum Culture pending. White count 7.0. Hemoglobin 10.8. Creatinine 0.50. The patient was seen again today 06/06/2017 in follow-up in the intensive care unit. She is awake and alert in no acute distress. She is maintaining O2 saturations in the 90s on 3 L/m per nasal cannula. She did realize the BiPAP throughout the evening last night. She denies any worsening shortness of breath. Still not near her baseline. She is quite dyspneic even on conversation. Her chest x-ray showed some left lower lobe atelectasis/ infiltrate. She did have a sputum positive for Aspergillus species. A follow- up computed tomography scan of the chest revealed small bilateral pleural effusions right greater than left with associated bibasilar subtle segmental atelectasis. There is a new patchy left upper lobe groundglass opacity. No clear evidence of cavitating lesion or fungal ball. She is currently afebrile. No leukocytosis. Creatinine 0.50. Hemodynamically stable. Objective - Vital Signs Vital signs: Vital Signs Temp 98.0 F 06/06/17 08:00 Pulse 96 06/06/17 11:25 Resp 21 06/06/17 11:25 BP 151/74 06/06/17 11:00 Pulse Ox 95 06/06/17 11:00 Intake & Output 06/05/17 06/06/17 06/06/17 18:59 06:59 18:59 Intake Total 0092.445 6279.0 540.0 Output Total 440 992 625 Balance 810.193 0300.0 -85.0 Weight 55.5 kg Intake: IV 1275.0 1550.0 340.0 Piperacillin-Tazobactam 3 100.0 50.0 50.0 .375 gm In Dextrose/Water 1 50ml.bag @ 12.5 mls/hr IVPB Q8HR [facility] Rx#: [id number] Potassium Chloride 10 meq 200 Lidocaine 2% Inj 10 mg In Sodium Chloride 0.9% 100 ml @ 100 mls/hr IV Q1HR [facility] Rx#:[id number] Sodium Chloride 0.9% 1, 600 1000 40 000 ml @ 20 mls/hr IV . Q24H [facility] Rx#:[id number] Vancomycin 1,000 mg In 375 500 250 Sodium Chloride 0.9% 250 ml @ 125 mls/hr IVPB Q12H [facility] Rx#:[id number] Intake, IV Titration 100.000 Amount Propofol 1,000 mg In 100.000 Empty Bag 1 bag @ Per Protocol IV .Q0M [facility] Rx#: [id number] Oral 480 200 Output: Urine 440 992 625 Other: Voiding Method Indwelling Catheter Indwelling Catheter Indwelling Catheter - Exam GENERAL EXAM: Frail, cachectic. Alert, in no acute distress. HEAD: Normocephalic. EYES: Sluggish reaction of pupils, unequal size. NOSE: Clear with pink turbinates. THROAT: No erythema or exudates. NECK: No masses, no JVD. CHEST: No chest wall deformity. LUNGS: Equal air entry with scattered rhonchi. Crackles in the posterior bases. Diminished throughout. CVS: S1 and S2 normal with no audible murmur, regular rhythm. ABDOMEN: No hepatosplenomegaly, normal bowel sounds, no guarding or rigidity. SPINE: No scoliosis or deformity SKIN: Multiple areas of ecchymosis nonhealing wounds. Thin frail secondary to chronic steroids. CENTRAL NERVOUS SYSTEM: Sedated. EXTREMITIES: There is no peripheral edema. No clubbing, no cyanosis. Peripheral pulses are intact. - Labs CBC & Chem 7: 06/06/17 05:42 06/06/17 05:42 Labs: Abnormal Lab Results - Last 24 Hours (Table) 06/05/17 06/06/17 06/06/17 Range/Units 17:17 05:42 05:42 MCV 101.6 H (80.0-100.0) fL MCHC 30.6 L (31.0-37.0) g/dL RDW 15.6 H (11.5-15.5) % Lymphocytes # 0.2 L (1.0-4.8) k/uL Carbon Dioxide 31 H (22-30) mmol/L BUN 22 H (7-17) mg/dL Creatinine 0.50 L (0.52-1.04) mg/dL Glucose 119 H (74-99) mg/dL POC Glucose (mg/dL) 104 H (75-99) mg/dL ALT 72 H (9-52) U/L Total Protein 5.0 L (6.3-8.2) g/dL Albumin 2.8 L (3.5-5.0) g/dL Microbiology - Last 24 Hours (Table) 06/04/17 06:08 Blood Culture - Preliminary Blood No Growth after 48 hours 06/04/17 07:40 Gram Stain - Preliminary Sputum Sputum Culture - Preliminary Aspergillus species Assessment and Plan Assessment: Impression: #1 Acute on chronic hypoxic and hypercapnic respiratory failure requiring intubation mechanical ventilatory support secondary to severe oxygen dependent, steroid dependent, Gold stage III/IV chronic obstructive pulmonary disease with FEV1 value of 33% of predicted. #2 Chronic hypoxic and hypercapnic respiratory failure with multiple admissions of exacerbations. #3 Hyperkalemia. #4 History of hypertension. #5 Hyperlipidemia. #6 Osteoporosis. #7 Poor overall functional performance based on the above-mentioned multiple comorbidities. Plan: The patient was seen and evaluated by Dr. Ventura. Her sputum was positive for Aspergillus. We will consult infectious disease. Doubt a significant finding. She was sent for computed tomography scan of the chest. No cavitating lesions are fungal-appearing infections. We'll continue with antibiotics. We'll continue with IV Solu-Medrol 60 mg every 6 hours. Pulmicort and Perforomist inhalations twice a day, DuoNeb inhalations every 4 hours. We' ll utilize heparin for DVT prophylaxis. Protonix for GI prophylaxis. We will continue to follow and make further recommendations based on her clinical status. Critical Care time 33 minutes. I, the cosigning physician, have performed a history and physical examination on the patient. Lung sounds have few scattered rhonchi. Crackles in the posterior bases. Diminished throughout. Continues on mechanical ventilator. Maintaining good O2 saturations in the 90s on 3 L/m per nasal cannula.. I have discussed the assessment and plan of care with my nurse practitioner, Francia Crump. I attest the above documented note as dictated by her. Time with Patient: Greater than 30 <Jordyn Ventura - Last Filed: 06/06/17 16:10> Objective - Vital Signs Vital signs: Vital Signs Temp 97.9 F 06/06/17 12:00 Pulse 94 06/06/17 15:10 Resp 19 06/06/17 14:00 BP 176/81 06/06/17 14:00 Pulse Ox 97 06/06/17 14:00 Intake & Output 06/05/17 06/06/17 06/06/17 18:59 06:59 18:59 Intake Total 4111.991 0303.0 840.0 Output Total 440 992 900 Balance 747.209 6501.0 -60.0 Weight 55.5 kg Intake: IV 1275.0 1550.0 400.0 Piperacillin-Tazobactam 3 100.0 50.0 50.0 .375 gm In Dextrose/Water 1 50ml.bag @ 12.5 mls/hr IVPB Q8HR [facility] Rx#: [id number] Potassium Chloride 10 meq 200 Lidocaine 2% Inj 10 mg In Sodium Chloride 0.9% 100 ml @ 100 mls/hr IV Q1HR [facility] Rx#:[id number] Sodium Chloride 0.9% 1, 600 1000 100 000 ml @ 20 mls/hr IV . Q24H [facility] Rx#:[id number] Vancomycin 1,000 mg In 375 500 250 Sodium Chloride 0.9% 250 ml @ 125 mls/hr IVPB Q12H [facility] Rx#:[id number] Intake, IV Titration 100.000 Amount Propofol 1,000 mg In 100.000 Empty Bag 1 bag @ Per Protocol IV .Q0M [facility] Rx#: [id number] Oral 480 440 Output: Urine 440 992 900 Other: Voiding Method Indwelling Catheter Indwelling Catheter Indwelling Catheter - Labs CBC & Chem 7: 06/06/17 05:42 06/06/17 05:42 Labs: Abnormal Lab Results - Last 24 Hours (Table) 06/05/17 06/06/17 06/06/17 Range/Units 17:17 05:42 05:42 MCV 101.6 H (80.0-100.0) fL MCHC 30.6 L (31.0-37.0) g/dL RDW 15.6 H (11.5-15.5) % Lymphocytes # 0.2 L (1.0-4.8) k/uL Carbon Dioxide 31 H (22-30) mmol/L BUN 22 H (7-17) mg/dL Creatinine 0.50 L (0.52-1.04) mg/dL Glucose 119 H (74-99) mg/dL POC Glucose (mg/dL) 104 H (75-99) mg/dL ALT 72 H (9-52) U/L Total Protein 5.0 L (6.3-8.2) g/dL Albumin 2.8 L (3.5-5.0) g/dL Microbiology - Last 24 Hours (Table) 06/04/17 06:08 Blood Culture - Preliminary Blood No Growth after 48 hours 06/04/17 07:40 Gram Stain - Preliminary Sputum Sputum Culture - Preliminary Aspergillus species Assessment and Plan Assessment: This is a joint evaluation that was done along with the nurse practitioner. The patient is post extubation. She has advanced COPD. She was found to have Aspergillus in his sputum. I doubt any acute necrotizing Aspergillus pneumonia however it's worthwhile to obtain a CAT scan of the chest to make sure there is no abnormalities consistent with Aspergillus pneumonia. Note that the patient has been hospital multiple occasions and she's been immunosuppressed with recurrent steroid treatments. I'm also going to consult ID in this regard. Chest x-ray shows right lower lobe consolidation. We'll continue to follow on that. Continue bronchodilators. Continue systemic steroids. Cut down the IV fluids. We will continue to follow make further recommendations based on her progress. A CAT scan of the chest will be ordered. ID consultation will be obtained.
--- NOTE | 2017-06-06 17:36 | P.PN ---
Progress Note - Text Progress Note Date: 06/06/17 DATE OF SERVICE: 06/06/2017 PRESENTING COMPLAINT: Increasing shortness of breath/respiratory distress HISTORY OF PRESENT ILLNESS: 72-year-old female who presented with acute COPD exacerbation shortness of breath, was in respiratory distress on admission. Subsequently intubated and placed on mechanical ventilation, extubated yesterday. INTERVAL HISTORY: 06/06/2017: Patient sitting up in bed appears mildly anxious, short of breath with minimal exertion, currently on 2 L nasal cannula which is her home dose of oxygen. Has been somewhat hypertensive, Appetite is fair eating between 30 and 40% of her meals, up with assistance, last BM prior to admission. REVIEW OF SYSTEMS: Done for constitutional ,cardiovascular, GI, pulmonary with relevant findings as above. CURRENT MEDICATIONS DuoNeb, Xanax, Pulmicort, Catapres, Perforomist, Lasix, Apresoline, Imdur, Zestril, Solu-Medrol, Protonix, Zosyn, theophylline. 300 Milligrams by mouth daily vancomycin. PHYSICAL EXAM VITAL SIGNS: Temperature 97.9, pulse 81, respiratory rate 18, blood pressure 135/70, oxygen saturation 98% on 2 L GENERAL APPEARANCE: Lying in bed, appears mildly anxious. EYES: Pupils equal. Conjunctiva normal. NECK: JVD not raised. Mass not palpable. RESPIRATORY: Respiratory effort increased poor air entry. CARDIOVASCULAR: First and second sounds normal. Generalized edema. ABDOMEN: Soft. Liver and spleen not palpable. No tenderness. No mass palpable. PSYCHIATRY: Alert and oriented x3. Mood and affect normal. INTEGUMENT: Diffuse bruising upper and lower extremities, right arm almost completely black and blue, from wrist to shoulder. INVESTIGATIONS: LABS: MCV 101.6, BUN 22, creatinine 0.50. Sputum culture: Positive for Aspergillus Chest CT: Small bilateral pleural effusions right greater than left associated bibasilar subsegmental dependent atelectasis. Patchy left upper lobe groundglass opacity, findings favoring pulmonary fibrosis superimposed on extensive centrilobular emphysematous changes, redemonstration of 3 vessel coronary artery calcifications, severe. No new retropulsion of mild compression deformities at T4 and T5 vertebral bodies. ASSESSMENT: -Acute severe chronic obstructive pulmonary disease exacerbation with acute purulent tracheobronchitis as well as acute on chronic hypoxic hypercarbic respiratory failure status post mechanical ventilation. -End-stage chronic obstructive pulmonary disease -Chronic hypoxic hypercapnic respiratory failure, on home O2. -Microcytic anemia, cause unknown -Essential hypertension. -Hyperlipidemia -Small bilateral pleural effusions right greater than left PLAN: Sputum culture positive for Aspergillus will continue with antibiotic therapy, consult to infectious disease. Continue Solu-Medrol Pulmicort and Perforomist and DuoNeb's. Computed tomography scan was negative for any cavitating lesions or fungal appearing infections. Plan of care discussed with patient the bedside she is in agreement we'll follow closely. INJECTION MOLD TECHNICIAN statement: Patient was seen and examined by nurse practitioner Hailey Conner and all elements of the case discussed with attending Dr. Lugo
--- NOTE | 2017-06-06 20:45 | PN ---
PROGRESS NOTE DATE OF SERVICE: 06/06/2017 ATTENDING NOTE: Patient seen and examined by me. I discussed with my nurse practitioner, Ms. Conner. The patient is in the ICU, status post ventilator. Did tolerate some diet. Very tired, short of breath, has a cough, not able to expectorate much. EXAMINATION: Temperature 97.7, pulse 93, respirations 22, blood pressure 176/81, pulse ox 97% on 3L. HEENT: External nose, ears normal. Oral cavity: Dry mucous membranes. Eyes: Pupils equal. Conjunctivae normal. RESPIRATORY: Effort increased. Short of breath at rest. LUNGS: Poor air entry, expiratory wheezing. CARDIOVASCULAR: First and second sounds normal. Edema present. ABDOMEN: Soft, nontender. Liver and spleen not palpable. PSYCHIATRY: Alert and oriented x3. Mood and affect anxious-appearing. DERMATOLOGICAL: Diffuse bruising, thin skin. INVESTIGATIONS: White count 8.1. Potassium 3.9, BUN 22, creatinine 0.50. Sputum is growing Aspergillus. ASSESSMENT: 1. Acute severe chronic obstructive pulmonary disease exacerbation from acute purulent tracheobronchitis along with causing acute on chronic hypoxic and hypercarbic respiratory failure, status post mechanical ventilation. 2. Chronic hypoxic and hypercapnic respiratory failure, on home oxygen. 3. Essential hypertension, uncontrolled. 4. Normocytic anemia, cause unknown. 5. Hypoalbuminemia as an acute phase reactant. PLAN: The patient remains on IV Solu-Medrol, nebulized bronchodilators, is on IV Zosyn, theophylline. The patient's COPD is end-stage. The patient is slow to respond. Care was discussed with the patient. The patient remains in the ICU. Prognosis is guarded. MMODL / IJN: [id number] /
[2017-06-06] MEDS: VANCOMYCIN 1,250 MG in SODIUM CHLORIDE 0.9% 250 ML IVPB SCH (21:01)
[2017-06-07] MEDS: PIPERACILLIN-TAZOBACTAM 3.375 GM in DEXTROSE/WATER 1 50ML.BAG IVPB SCH ×3 (00:07→15:29)
[2017-06-07] MEDS: methylPREDNISolone SOD SUCCI 125 MG/2 ML VIAL IV SCH ×2 (00:08→05:54)
[2017-06-07] MEDS: HEPARIN SODIUM,PORCINE 5,000 UNIT/ML 1 ML VIAL SQ SCH ×3 (00:08→15:29)
--- NOTE | 2017-06-07 00:15 | P.CONS ---
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 She is a chronically on steroid therapy has many complications including thin skin with many difficulties with her skin with tears and bruising. She presented to the emergency center in respiratory distress with extensive tachycardia tachypnea and hypoxia. She was intubated and subsequently has been extubated with the marked improvement of her respiratory failure. However patient has sputum culture with evidence of Aspergillus in the infectious diseases consultation was requested. Review of Systems Patient relates she feels poorly at all times. She has chronic shortness of breath and weakness and great difficulties with her skin because of her steroid use. HEENT:Denies headache or acute visual change. Denies sinus or mouth discomforts. Denies neck stiffness or pain. Denies significant oral cavity pain. Denies difficulty on swallowing. Lungs: As per the HPI Cardiovascular: Has chronic shortness of breath but currently denying chest pain she has chronic dyspnea on exertion but no syncope Gastrointestinal:Denies nausea, vomiting, diarrhea, constipation, hematemesis, melena, hematochezia. No no significant change of bowel habit noticed. Musculoskeletal: denies significant myalgias or arthralgias. No new joint swelling. Denies new back pain. Skin: Chronic skin changes from her steroid use with multiple bruises and skin tears being noted Neuro: Denies headache or visual change. Denies any new onset weakness or difficulty with ambulation. Denies falls or seizures. Psychiatric: Chronic anxiety from shortness of breath Endocrine: Severe chronic fatigue and ongoing weight loss Past Medical History Past Medical History: Asthma, COPD, Eye Disorder, Hyperlipidemia, Hypertension, Pneumonia, Respiratory Disorder, Skin Disorder Additional Past Medical History / Comment(s): Pt recently admitted 05/29/17 with acute on chronic hypercapnic and hypoxic respiratory failure. Other Hx; Advanced oxygen and steroid dependent, chronic hypoxic and hypercapnic respiratory failure, vented once in past, acute on chronic hypercapnic respiratory failure, bronchitis, cataracts/glaucoma bilaterally, previous UTI, hyponatremia, migraines but none for years, hepatitis A as a child , hemorrhoids , osteoporosis, fragile skin. History of Any Multi-Drug Resistant Organisms: None Reported Past Surgical History: Tubal Ligation Additional Past Surgical History / Comment(s): Bilateral eye surgery-daughter thinks it was for glaucoma. Past Anesthesia/Blood Transfusion Reactions: No Reported Reaction Additional Past Anesthesia/Blood Transfusion Reaction / Comm: Pt has never recieved blood. Additional Psychological History / Comment(s): Patient has progressive COPD that is steroid and oxygen dependent. Smoking Status: Former smoker - Past Family History Father History Unknown: Yes Family Medical History: No Reported History Additional Family Medical History / Comment(s): Father when pt was young. Mother Family Medical History: Coronary Artery Disease (CAD), Myocardial Infarction ([place] ) Additional Family Medical History / Comment(s): Mother had CABG Medications and Allergies Home Medications and Allergies Comment(s): Current Medications Albuterol/Ipratropium (Duoneb 0.5 Mg-3 Mg/3 Ml Soln) 3 ml INHALATION RT-Q4H [facility] Last Admin: 06/06/17 23:23 Dose: 3 ml Alprazolam (Xanax) 0.25 mg PO TID PRN PRN Reason: Anxiety Last Admin: 06/06/17 13:14 Dose: 0.25 mg Budesonide (Pulmicort) 1 mg INHALATION RT-BID [facility] Last Admin: 06/06/17 19:53 Dose: 1 mg Clonidine (Catapres) 0.1 mg PO Q4HR PRN PRN Reason: Hypertension Last Admin: 06/06/17 13:07 Dose: 0.1 mg Formoterol Fumarate (Perforomist) 20 mcg INHALATION RT-BID [facility] Last Admin: 06/06/17 19:53 Dose: 20 mcg Furosemide (Lasix) 20 mg PO Q48H [facility] Last Admin: 06/06/17 08:13 Dose: 20 mg Heparin Sodium (Porcine) (Heparin) 5,000 unit SQ Q8HR [facility] Last Admin: 06/07/17 00:08 Dose: Not Given Hydralazine HCl (Apresoline) 10 mg IVP Q4HR PRN PRN Reason: Blood Pressure - High Last Admin: 06/06/17 04:39 Dose: 10 mg Propofol 1,000 mg/ IV Solution 100 mls @ 0 mls/hr IV .Q0M [facility] PRN Reason: Per Protocol Last Admin: 06/05/17 09:54 Dose: 16.6 mls/hr Sodium Chloride (Saline 0.9%) 1,000 mls @ 20 mls/hr IV .Q24H [facility] Last Admin: 06/06/17 13:07 Dose: Not Given Piperacillin/Tazobactam/ (Dextrose 3.375 gm/ IV Solution) 50 mls @ 12.5 mls/hr IVPB Q8HR [facility] Last Admin: 06/07/17 00:07 Dose: 12.5 mls/hr Norepinephrine Bitartrate (Levophed-0.9% Nacl 4 Mg/250ml Pmx) 4 mg in 250 mls @ 0 mls/hr IV .Q0M [facility]; Titrate PRN Reason: Protocol Vancomycin HCl 1,250 mg/ (Sodium Chloride) 250 mls @ 125 mls/hr IVPB Q12H [facility] Last Admin: 06/06/17 21:01 Dose: 125 mls/hr Isosorbide Mononitrate (Imdur) 30 mg PO DAILY [facility] Last Admin: 06/06/17 08:14 Dose: 30 mg Lisinopril (Zestril) 20 mg PO BID [facility] Last Admin: 06/06/17 21:01 Dose: 20 mg Methylprednisolone Sodium Succinate (Solu-Medrol) 60 mg IV Q6HR [facility] Last Admin: 06/07/17 00:08 Dose: 60 mg Naloxone HCl (Narcan) 0.2 mg IV Q2M PRN PRN Reason: Opioid Reversal Nystatin (Mycostatin Oral Susp) 500,000 unit PO QID [facility] Last Admin: 06/06/17 21:01 Dose: 500,000 unit Pantoprazole Sodium (Protonix) 40 mg IVP DAILY [facility] Last Admin: 06/06/17 08:13 Dose: 40 mg Theophylline (Benigno-24) 300 mg PO DAILY [facility] Last Admin: 06/06/17 08:13 Dose: 300 mg Home Medications Medication Instructions Recorded Confirmed Type Albuterol Sulfate [Proair Hfa] 2 puff INHALATION RT-Q4H PRN 10/29/13 06/04/17 History Isosorbide Mononitrate ER [Imdur] 30 mg PO DAILY 10/29/13 06/04/17 History Theophylline 24 Hour [Benigno-24] 300 mg PO DAILY 10/29/13 06/04/17 History Ipratropium/Albuterol Sulfate 2 puff INHALATION RT-QID 09/23/15 06/04/17 History [Combivent Respimat Inhaler] Lisinopril [Zestril] 20 mg PO BID 09/23/15 06/04/17 History Furosemide [Lasix] 20 mg PO Q48H 12/16/16 06/04/17 History Cholecalciferol (Vitamin D3) 2,000 unit PO DAILY 02/28/17 06/04/17 History [Vitamin D3] ALPRAZolam [Xanax] 0.25 mg PO TID #20 tab 03/06/17 06/04/17 Rx Budesonide/Formoterol Fumarate 2 puff INHALATION RT-BID 05/29/17 06/04/17 History [Symbicort 160-4.5 Mcg Inhaler] Ipratropium-Albuterol Nebulize 3 ml INHALATION RT-QID 05/29/17 06/04/17 History [Duoneb 0.5 mg-3 mg/3 ml Soln] Nystatin 100,000 Unit/ml Susp 5 ml PO QID 05/29/17 06/04/17 History [Mycostatin Oral Susp] Formoterol Fumarate [Perforomist] 20 mcg INHALATION RT-BID #1 nebu 06/01/1707/21 Rx Pantoprazole [Protonix] 40 mg PO AC-BRKFST #30 tablet. 06/01/17 06/04/17 Rx Amoxic-Pot Clav 875-125Mg 1 tab PO BID 06/04/17 06/04/17 History [Augmentin 875-125] Allergies Allergy/AdvReac Type Severity Reaction Status Date / Time alendronate sodium Allergy Swelling Verified 06/04/17 07:10 [From Fosamax] Latex, Natural Rubber Allergy Rash/Hives Verified 06/04/17 07:10 levofloxacin [From Levaquin] AdvReac Diarrhea Verified 06/04/17 07:10 Physical Exam Vitals: Vital Signs Temp Pulse Resp BP Pulse Ox 06/07/17 00:00 93 17 96 06/06/17 23:37 91 06/06/17 23:23 83 06/06/17 23:00 88 18 97 06/06/17 22:00 90 20 151/76 95 06/06/17 21:00 98.0 F 101 H 151/76 93 L 06/06/17 20:36 101 H 06/06/17 20:09 96 06/06/17 20:00 92 97 06/06/17 19:57 93 06/06/17 19:00 89 21 97 06/06/17 18:00 105 H 21 93 L 06/06/17 17:00 86 14 97 06/06/17 16:00 97.9 F 81 18 135/70 98 06/06/17 15:10 94 06/06/17 15:00 91 18 96 06/06/17 14:00 90 19 176/81 97 06/06/17 13:00 100 21 176/81 93 L 06/06/17 12:00 97.9 F 93 21 97 06/06/17 11:25 96 21 06/06/17 11:06 98 21 06/06/17 11:00 100 22 151/74 95 06/06/17 10:00 103 H 22 158/74 95 06/06/17 09:00 114 H 19 169/76 93 L 06/06/17 08:00 98.0 F 118 H 21 161/79 93 L 06/06/17 07:30 97 21 06/06/17 07:12 95 20 06/06/17 07:10 96 20 06/06/17 07:00 91 22 165/85 97 06/06/17 06:58 97 21 06/06/17 06:00 100 22 138/66 96 06/06/17 05:00 99 26 H 163/82 96 06/06/17 04:00 97.5 F L 100 23 156/77 96 06/06/17 03:45 102 H 06/06/17 03:22 78 06/06/17 03:00 83 18 144/67 98 06/06/17 02:00 74 16 154/84 95 06/06/17 01:00 86 19 138/72 97 06/06/17 00:25 84 06/06/17 00:08 81 Intake and Output 06/06/17 06/06/17 06/07/17 14:59 22:59 06:59 Intake Total 840.0 220.0 Output Total 900 1200 Balance -60.0 -980.0 Intake: IV 400.0 70.0 Piperacillin-Tazobactam 3 50.0 50.0 .375 gm In Dextrose/Water 1 50ml.bag @ 12.5 mls/hr IVPB Q8HR [facility] Rx#: [id number] Sodium Chloride 0.9% 1, 100 20 000 ml @ 20 mls/hr IV . Q24H [facility] Rx#:[id number] Vancomycin 1,000 mg In 250 Sodium Chloride 0.9% 250 ml @ 125 mls/hr IVPB Q12H [facility] Rx#:[id number] Oral 440 150 Output: Urine 900 1200 Other: Voiding Method Indwelling Catheter Indwelling Catheter Pleasant 72-year-old woman who is cachectic and less short of breath and admission HEENT: Anicteric conjunctiva are pink and moist nasal mucosa grossly intact without significant lesions, there is no thrush. Neck: The neck is supple without significant lymphadenopathy or thyromegaly. Lungs: Symmetrical air entry with coarse crackles especially at the bases. Wheezes are still scattered. No dullness or egophony Heart: Irregular with an audible S1 and S2 soft S4 no distinct murmur click or rub PMI is nondisplaced Abdomen: Positive bowel sounds soft and nontender without palpable masses or organomegaly. There was no guarding or rebound. Extremities: The upper and lower extremities are almost covered with ecchymosis from her significant steroid induced skin disease, fortunately nothing is very tender at this time. IV site left arm is functioning well but has been problematic. She is lower extremity edema. He is improved from prior. The skin has no ryan open draining lesions at this time. Neuro: Awake alert oriented to person place and time. There are no acute new gross focal sensory motor deficits. Results CBC & Chem 7: 06/06/17 05:42 06/06/17 05:42 Labs: Abnormal Lab Results - Last 24 Hours (Table) 06/06/17 06/06/17 Range/Units 05:42 05:42 MCV 101.6 H (80.0-100.0) fL MCHC 30.6 L (31.0-37.0) g/dL RDW 15.6 H (11.5-15.5) % Lymphocytes # 0.2 L (1.0-4.8) k/uL Carbon Dioxide 31 H (22-30) mmol/L BUN 22 H (7-17) mg/dL Creatinine 0.50 L (0.52-1.04) mg/dL Glucose 119 H (74-99) mg/dL ALT 72 H (9-52) U/L Total Protein 5.0 L (6.3-8.2) g/dL Albumin 2.8 L (3.5-5.0) g/dL Microbiology - Last 24 Hours (Table) 06/04/17 06:08 Blood Culture - Preliminary Blood No Growth after 48 hours Laboratory Results WBC 8.1 k/uL (3.8-10.6) 06/06/17 05:42 RBC 3.94 m/uL (3.80-5.40) 06/06/17 05:42 Hgb 12.3 gm/dL (11.4-16.0) 06/06/17 05:42 Hct 40.1 % (34.0-46.0) 06/06/17 05:42 MCV 101.6 fL (80.0-100.0) H 06/06/17 05:42 MCH 31.1 pg (25.0-35.0) 06/06/17 05:42 MCHC 30.6 g/dL (31.0-37.0) L 06/06/17 05:42 RDW 15.6 % (11.5-15.5) H 06/06/17 05:42 Plt Count 209 k/uL (150-450) 06/06/17 05:42 Neutrophils % 91 % 06/06/17 05:42 Lymphocytes % 3 % 06/06/17 05:42 Monocytes % 5 % 06/06/17 05:42 Eosinophils % 0 % 06/06/17 05:42 Basophils % 0 % 06/06/17 05:42 Neutrophils # 7.4 k/uL (1.3-7.7) 06/06/17 05:42 Lymphocytes # 0.2 k/uL (1.0-4.8) L 06/06/17 05:42 Monocytes # 0.4 k/uL (0-1.0) 06/06/17 05:42 Eosinophils # 0.0 k/uL (0-0.7) 06/06/17 05:42 Basophils # 0.0 k/uL (0-0.2) 06/06/17 05:42 Macrocytosis Slight 06/06/17 05:42 PT 9.6 sec (9.0-12.0) 06/04/17 07:08 INR 1.0 (<1.2) 06/04/17 07:08 APTT 19.8 sec (22.0-30.0) L 06/04/17 07:08 Sample Site LRAD 06/05/17 04:45 ABG pH 7.46 (7.35-7.45) H 06/05/17 04:45 ABG pCO2 41 mmHg (35-45) 06/05/17 04:45 ABG pO2 88 mmHg (83-108) 06/05/17 04:45 ABG HCO3 29 mmol/L (21-25) H 06/05/17 04:45 ABG Total CO2 30 mmol/L (19-24) H 06/05/17 04:45 ABG O2 Saturation 97.0 % (94-97) 06/05/17 04:45 ABG Base Excess 5.1 mmol/L 06/05/17 04:45 Layo Test Yes 06/05/17 04:45 FiO2 35 % 06/05/17 04:45 Sodium 141 mmol/L (137-145) 06/06/17 05:42 Potassium 3.9 mmol/L (3.5-5.1) 06/06/17 05:42 Chloride 107 mmol/L (98-107) 06/06/17 05:42 Carbon Dioxide 31 mmol/L (22-30) H 06/06/17 05:42 Anion Gap 3 mmol/L 06/06/17 05:42 BUN 22 mg/dL (7-17) H 06/06/17 05:42 Creatinine 0.50 mg/dL (0.52-1.04) L 06/06/17 05:42 Est GFR (MDRD) Af Amer >60 (>60 ml/min/1.73 sqM) 06/06/17 05:42 Est GFR (MDRD) Non-Af >60 (>60 ml/min/1.73 sqM) 06/06/17 05:42 Glucose 119 mg/dL (74-99) H 06/06/17 05:42 POC Glucose (mg/dL) 104 mg/dL (75-99) H 06/05/17 17:17 POC Glu [place] Man ID Camryn Triana 06/05/17 17:[address] Glu mg/dL 120 06/04/17 06:08 Hemoglobin A1c 5.8 % (4.0-6.0) 06/04/17 06:08 Plasma Lactic Acid [place] 1.2 mmol/L (0.7-2.0) 06/04/17 06:08 Calcium 8.5 mg/dL (8.4-10.2) 06/06/17 05:42 Phosphorus 3.0 mg/dL (2.5-4.5) 06/06/17 05:42 Magnesium 2.2 mg/dL (1.6-2.3) 06/06/17 05:42 Total Bilirubin 0.3 mg/dL (0.2-1.3) 06/06/17 05:42 AST 25 U/L (14-36) 06/06/17 05:42 ALT 72 U/L (9-52) H 06/06/17 05:42 Alkaline Phosphatase 53 U/L (38-126) 06/06/17 05:42 Total Creatine Kinase 28 U/L (30-135) L 06/04/17 06:08 CK-MB (CK-2) 1.5 ng/mL (0.0-2.4) 06/04/17 06:08 CK-MB (CK-2) Rel Index 5.4 06/04/17 06:08 Troponin I <0.012 ng/mL (0.000-0.034) 06/04/17 06:08 NT-Pro-B Natriuret Pep 544 pg/mL 06/04/17 06:08 Total Protein 5.0 g/dL (6.3-8.2) L 06/06/17 05:42 Albumin 2.8 g/dL (3.5-5.0) L 06/06/17 05:42 Urine Color Yellow 06/04/17 06:31 Urine Appearance Cloudy (Clear) H 06/04/17 06:31 Urine pH 7.0 (5.0-8.0) 06/04/17 06:31 Ur Specific [place] 1.018 (1.001-1.035) 06/04/17 06:31 Urine Protein 1+ (Negative) H 06/04/17 06:31 Urine Glucose (UA) Negative (Negative) 06/04/17 06:31 Urine Ketones Negative (Negative) 06/04/17 06:31 Urine Blood Negative (Negative) 06/04/17 06:31 Urine Nitrite Negative (Negative) 06/04/17 06:31 Urine Bilirubin Negative (Negative) 06/04/17 06:31 Urine Urobilinogen 2.0 mg/dL (<2.0) 06/04/17 06:31 Ur Leukocyte Esterase Negative (Negative) 06/04/17 06:31 Urine RBC <1 /hpf (0-5) 06/04/17 06:31 Urine WBC 1 /hpf (0-5) 06/04/17 06:31 Ur Squamous Epith Cells <1 /hpf (0-4) 06/04/17 06:31 Amorphous Sediment Occasional /hpf (None) H 06/04/17 06:31 Hyaline Casts 7 /lpf (0-2) H 06/04/17 06:31 Urine Mucus Occasional /hpf (None) H 06/04/17 06:31 Vancomycin Trough 12.4 ug/mL 06/06/17 05:42 Influenza Type A RNA Not Detected (Not Detectd) 06/04/17 06:26 Influenza Type B (PCR) Not Detected (Not Detectd) 06/04/17 06:26 Microbiology 06/04/17 06:08 Blood Blood Culture - Preliminary No Growth after 48 hours Microbiology 06/04/17 06:08 Blood Blood Culture - Preliminary No Growth after 48 hours 06/04/17 07:40 Sputum Gram Stain - Preliminary 06/04/17 07:40 Sputum Sputum Culture - Preliminary Aspergillus species Assessment and Plan (1) Respiratory failure with hypoxia and hypercapnia Current Visit: Yes Status: Acute Code(s): J96.91 - RESPIRATORY FAILURE, UNSPECIFIED WITH HYPOXIA; J96.92 - RESPIRATORY FAILURE, UNSPECIFIED WITH HYPERCAPNIA SNOMED Code(s): 97174859 (2) Aspergillus Narrative/Plan: Pleasant 72-year-old female presents to Hospital with evidence of respiratory failure and required short-term intubation and sedation mechanical ventilation. She has now been extubated and is showing some improvement. She has a chronic shortness of breath that she relates is nearly to baseline. She says her significant chronic skin disorder from her chronic steroid use. Nothing is open and draining at this time. She did have computed tomography scan at admission that shows evidence of a bit of pneumonia. No evidence of any cavitary disease or fungus ball. Isolation of Aspergillus from the sputum in a patient on chronic steroid therapy is common and not indicative of deep disease. The patient should have computed tomography scan findings consistent with Aspergillus to initiate any further workup. At this time since she does not have significant findings would not proceed with lung biopsy which would be required to diagnose aspergillosis in this type of situation. She is not in need of any antifungal therapy. Initiate improving will likely be transitioned to oral antimicrobial therapy completed the treatment of her pneumonia. Current Visit: Yes Status: Acute Code(s): B44.9 - ASPERGILLOSIS, UNSPECIFIED SNOMED Code(s): 76167801
[2017-06-07] MEDS: IPRATROPIUM-ALBUTEROL 3 ML NEB INHALATION SCH ×6 (03:17→23:36)
[2017-06-07 04:55] LABS: Basophils % (A) 0 %; Eosinophils % (A) 0 %; HCT 38.7 % (34.0-46.0); Lymphocytes # (A) 0.4 k/uL (1.0-4.8); Lymphocytes % (A) 6 %; MCH 31.6 pg (25.0-35.0); MCHC 31.1 g/dL (31.0-37.0); MCV 101.5 fL (80.0-100.0); Macrocytosis Slight; Monocytes # (A) 0.6 k/uL (0-1.0); Monocytes % (A) 8 %; Neutrophils # (A) 6.2 k/uL (1.3-7.7); Neutrophils % (A) 85 %; Platelet Count 221 k/uL (150-450); RBC 3.81 m/uL (3.80-5.40); RDW 15.9 % (11.5-15.5); WBC 7.3 k/uL (3.8-10.6)
[2017-06-07 05:12] LABS: Anion Gap 3 mmol/L; Blood Urea Nitrogen 29 mg/dL (7-17); Calcium 8.9 mg/dL (8.4-10.2); Carbon Dioxide 36 mmol/L (22-30); Chloride 101 mmol/L (98-107); Glucose 124 mg/dL (74-99); Potassium 3.8 mmol/L (3.5-5.1); Sodium 140 mmol/L (137-145)
[2017-06-07] MEDS: hydrALAZINE HCL 20 MG/ML 1 ML VIAL IVP PRN (05:57)
[2017-06-07] MEDS ORDERED: Potassium Replacement Protocol 1 EACH MISC MISCELLANE PRN (06:50)
[2017-06-07] MEDS ORDERED: POTASSIUM CHLORIDE ER 20 MEQ TAB.ER PO SCH (07:00)
[2017-06-07] MEDS: BUDESONIDE 1 MG/2 ML NEBU INHALATION SCH ×2 (07:40→19:51)
[2017-06-07] MEDS: FORMOTEROL FUMARATE 20 MCG/2 ML NEBU INHALATION SCH ×2 (07:40→19:51)
[2017-06-07] MEDS: VANCOMYCIN 1,250 MG in SODIUM CHLORIDE 0.9% 250 ML IVPB SCH ×2 (07:49→20:18)
[2017-06-07] MEDS: NYSTATIN 100,000 UNIT/ML SUSP 500,000 UNIT/5 ML CUP PO SCH ×4 (07:54→21:29)
[2017-06-07] MEDS: THEOPHYLLINE 24 HOUR 300 MG CAP.ER.24H PO SCH (07:54)
[2017-06-07] MEDS: PANTOPRAZOLE 40 MG/10 ML VIAL IVP SCH (07:54)
[2017-06-07] MEDS: LISINOPRIL 20 MG TAB PO SCH ×2 (07:55→20:25)
[2017-06-07] MEDS: ISOSORBIDE MONONITRATE ER 30 MG TAB.ER.24H PO SCH (07:55)
[2017-06-07] MEDS: SODIUM CHLORIDE 0.9% 1,000 ML IV SCH (07:57)
[2017-06-07] MEDS: ALPRAZolam 0.25 MG TAB PO PRN ×2 (08:35→20:36)
[2017-06-07] MEDS ORDERED: FUROSEMIDE 10 MG/ML 4 ML VIAL IV STA (10:24)
--- NOTE | 2017-06-07 10:48 | XR ---
EXAMINATION TYPE: XR chest 1V DATE OF EXAM: 06/07/2017 HISTORY: Shortness of breath. COMPARISON: 06/06/2017 TECHNIQUE: Single view of the chest is submitted. FINDINGS: Demonstrated are scattered senescent parenchymal change. There is basilar patchy densities persist although slightly improved. Continued follow-up advised. The heart is stable. Hilar and mediastinal structures are within normal limits. Degenerative changes are seen of the dorsal spine. IMPRESSION: 1. There is basilar patchy densities persist although slightly improved. Continued follow-up advised .
[2017-06-07] MEDS ORDERED: SODIUM CHLORIDE 0.65% NASAL SPRAY 44 ML BTL NASAL PRN (12:06)
--- NOTE | 2017-06-07 12:13 | P.PN ---
<Chani Toney M - Last Filed: 06/07/17 12:02> Subjective Progress Note Date: 06/07/17 Principal diagnosis: Acute on chronic hypoxic and hypercapnic respiratory failure This is a 72-year-old female patient who follows with Dr. Cummings as her primary care physician. She has a history of hypertension. She also has a history of severe oxygen dependent, steroid dependent chronic obstructive pulmonary disease, Gold stage III/IV with FEV1 value of 33% of predicted. She' s been maintained on Combivent, Spiriva, theophylline and albuterol in the outpatient setting. She was just discharged from here on 06/01/2017 for another acute exacerbation admission. She had been admitted at least 4 times in the last 6 months for her COPD exacerbations. She presented to the emergency room this morning approximate 6 AM via EMS with severe respiratory distress. She was quite tachypneic in the 40s, tachycardic and hypoxic. She was given 2 DuoNeb treatments without much improvement. By the time she arrived to the emergency room she was obtunded with agonal respirations. She was subsequently intubated and placed on mechanical ventilator. She is seen today in the intensive care unit. Current vent settings assist control of 16 title volume 400 FiO2 of 50% and a PEEP of 5. Initial blood gases on 100% FiO2 revealed a pO2 of 390, pCO2 61, pH 7.34. She is sedated with propofol currently at 30 mcg/kg/m. She is receiving a second ointment saline bolus. She was given cefepime and vancomycin. Chest x-ray reveals changes of chronic obstructive pulmonary disease but no acute pulmonary process. White count 12.8. Bicarb 41. Potassium 6.1. Creatinine 0.64. Lactic acid 1.2. ProBNP 544. Influenza screen is negative. She does arouse to tactile stimuli. The patient was seen again today 06/05/2017 in follow-up in the intensive care unit. She remains intubated and on the mechanical ventilator. Current settings assist control of 16, tidal volume 400, FiO2 35% and a PEEP of 5. Morning blood gases reveal pO2 of 88, pCO2 41, pH 7.46. She is arousable to verbal stimuli. She is following simple commands on 40 mics of propofol. She remained afebrile. Hemodynamically stable. Not requiring any pressors. Blood culture reveals no growth. Sputum Culture pending. White count 7.0. Hemoglobin 10.8. Creatinine 0.50. The patient was seen again today 06/06/2017 in follow-up in the intensive care unit. She is awake and alert in no acute distress. She is maintaining O2 saturations in the 90s on 3 L/m per nasal cannula. She did realize the BiPAP throughout the evening last night. She denies any worsening shortness of breath. Still not near her baseline. She is quite dyspneic even on conversation. Her chest x-ray showed some left lower lobe atelectasis/ infiltrate. She did have a sputum positive for Aspergillus species. A follow- up computed tomography scan of the chest revealed small bilateral pleural effusions right greater than left with associated bibasilar subtle segmental atelectasis. There is a new patchy left upper lobe groundglass opacity. No clear evidence of cavitating lesion or fungal ball. She is currently afebrile. No leukocytosis. Creatinine 0.50. Hemodynamically stable. On 06/07/2017 patient is seen again in the intensive care. She is moderately dyspneic at rest, requires BiPAP support at night, becomes more dyspneic with any type of exertion, even getting bed bath. She is noted to be more tachycardic today, she is in sinus tachycardia with a rate of 120 BPM. Last night she was reportedly hypertensive with systolic as high as 190 mmHg. Lung sounds are generally diminished, with tight faint expiratory wheezes bilaterally. She wears 3 L of oxygen per nasal cannula with O2 sat at 90-92%. This morning her blood pressures 148/59. Chest x-ray was reviewed, and shows basilar patchy densities which appear slightly improved from previous exams. Remains afebrile. Lab work was reviewed, no evidence of leukocytosis, with W VC of 7.3, hemoglobin is stable at 12, serum sodium is 140, serum potassium is 3.8, carbon dioxide is 36, B1 is 29, and creatinine is 0.60. Yesterday we consulted ID service for evidence of Aspergillus fumigators in the sputum culture, antifungal agents were indicated per ID service recommendations. CT chest was obtained, and shows new small bilateral pleural effusions, right greater than the left with associated bibasilar segmental dependent atelectasis. And new patchy left upper lobe groundglass opacity that could be inflammatory, infectious or represent early developing neoplasm, follow-up will be needed. Also findings favoring pulmonary fibrosis superimposed on background of extensive centrilobular emphysematous changes. Objective - Vital Signs Vital signs: Vital Signs Temp 97.9 F 06/07/17 08:00 Pulse 104 H 06/07/17 11:43 Resp 21 06/07/17 10:00 BP 148/59 06/07/17 10:00 Pulse Ox 92 L 06/07/17 10:00 Intake & Output 06/06/17 06/07/17 06/07/17 18:59 06:59 18:59 Intake Total 1047.5 895.0 445.0 Output Total 2025 645 575 Balance -977.5 250.0 -130.0 Weight 59.2 kg Intake: IV 457.5 520.0 445.0 Piperacillin-Tazobactam 3 87.5 50.0 50.0 .375 gm In Dextrose/Water 1 50ml.bag @ 12.5 mls/hr IVPB Q8HR [facility] Rx#: [id number] Sodium Chloride 0.9% 1, 120 220 20 000 ml @ 20 mls/hr IV . Q24H [facility] Rx#:[id number] Vancomycin 1,000 mg In 250 250 125 Sodium Chloride 0.9% 250 ml @ 125 mls/hr IVPB Q12H [facility] Rx#:[id number] Vancomycin 1,250 mg In 250 Sodium Chloride 0.9% 250 ml @ 125 mls/hr IVPB Q12H [facility] Rx#:[id number] Oral [id number] Output: Urine 2024 645 575 Other: Voiding Method Indwelling Catheter Indwelling Catheter Indwelling Catheter - Exam GENERAL EXAM: Frail, cachectic. Alert, in no acute distress. HEAD: Normocephalic. EYES: Sluggish reaction of pupils, unequal size. NOSE: Clear with pink turbinates. THROAT: No erythema or exudates. NECK: No masses, no JVD. CHEST: No chest wall deformity. LUNGS: Equal air entry with scattered end expiratory wheezes, diminished overall. CVS: S1 and S2 normal with no audible murmur, regular rhythm. ABDOMEN: No hepatosplenomegaly, normal bowel sounds, no guarding or rigidity. SPINE: No scoliosis or deformity SKIN: Multiple areas of ecchymosis nonhealing wounds. Thin frail secondary to chronic steroids. CENTRAL NERVOUS SYSTEM: Sedated. EXTREMITIES: There is no peripheral edema. No clubbing, no cyanosis. Peripheral pulses are intact. - Labs CBC & Chem 7: 06/07/17 04:19 06/07/17 04:19 Labs: Abnormal Lab Results - Last 24 Hours (Table) 06/07/17 06/07/17 Range/Units 04:19 04:19 MCV 101.5 H (80.0-100.0) fL RDW 15.9 H (11.5-15.5) % Lymphocytes # 0.4 L (1.0-4.8) k/uL Carbon Dioxide 36 H (22-30) mmol/L BUN 29 H (7-17) mg/dL Glucose 124 H (74-99) mg/dL Microbiology - Last 24 Hours (Table) 06/04/17 07:40 Gram Stain - Final Sputum Sputum Culture - Final Aspergillus fumigatus 06/04/17 06:08 Blood Culture - Preliminary Blood No Growth after 72 hours Assessment and Plan Plan: Assessment: #1 Acute on chronic hypoxic and hypercapnic respiratory failure requiring intubation mechanical ventilatory support secondary to severe oxygen dependent, steroid dependent, Gold stage III/IV chronic obstructive pulmonary disease with FEV1 value of 33% of predicted. Patient was successfully extubated on 2017, tolerating it well so far, with intermittent BiPAP support. #2 Chronic hypoxic and hypercapnic respiratory failure with multiple admissions of exacerbations. #3 Hyperkalemia. #4 History of hypertension. #5 Hyperlipidemia. #6 Osteoporosis. #7 Poor overall functional performance based on the above-mentioned multiple comorbidities. #8 Aspergillosis, unspecified. Was seen by ID service, it was felt that isolation of Aspergillus from the sputum and the patient on chronic steroid therapy is common, and is not indicative of deep disease. At this time there are no significant findings to prompt lung biopsy or initiation of any antifungal therapy. Plan: Patient was seen in ID consult, no need for antifungal therapy right now. CT chest did not demonstrate any cavitating lesions that would prompt lung biopsy. Patient remains moderately short of breath at rest, becomes extremely dyspneic with any exertion even repositioning in bed. Is requiring intermittent BiPAP support. Appears to be more hypoxic today with O2 sat at 90- 91% on 3 L per nasal cannula, more tachycardic with BPM of 120. We will start the patient on oral Cardizem 30 mg 3 times a day for rate control. We will give the patient 1 dose of IV Lasix 40 mg IV push. We'll decreased the Solu- Medrol down to 40 mg every 12. Keep the patient in the ICU. I performed a history & physical examination of the patient and discussed their management with my nurse practitioner, Chani Toney. I reviewed the nurse practitioner's note and agree with the documented findings and plan of care. Lung sounds are positive for tight expiratory wheezes bilaterally. The findings and the impression was discussed with the patient. I attest to the documentation by the nurse practitioner. Time with Patient: Greater than 30 <Jordyn Ventura - Last Filed: 06/07/17 16:44> Objective - Vital Signs Vital signs: Vital Signs Temp 98.0 F 06/07/17 12:00 Pulse 109 H 06/07/17 15:43 Resp 16 06/07/17 14:00 BP 159/75 06/07/17 13:00 Pulse Ox 95 06/07/17 15:31 Intake & Output 06/06/17 06/07/17 06/07/17 18:59 06:59 18:59 Intake Total 1047.5 895.0 485.0 Output Total 5 645 875 Balance -977.5 250.0 -390.0 Weight 59.2 kg Intake: IV 457.5 520.0 485.0 Piperacillin-Tazobactam 3 87.5 50.0 50.0 .375 gm In Dextrose/Water 1 50ml.bag @ 12.5 mls/hr IVPB Q8HR [facility] Rx#: [id number] Sodium Chloride 0.9% 1, 120 220 60 000 ml @ 20 mls/hr IV . Q24H [facility] Rx#:[id number] Vancomycin 1,000 mg In 250 250 125 Sodium Chloride 0.9% 250 ml @ 125 mls/hr IVPB Q12H [facility] Rx#:[id number] Vancomycin 1,250 mg In 250 Sodium Chloride 0.9% 250 ml @ 125 mls/hr IVPB Q12H [facility] Rx#:[id number] Oral [id number] Output: Urine 2024 645 875 Other: Voiding Method Indwelling Catheter Indwelling Catheter Indwelling Catheter - Labs CBC & Chem 7: 06/07/17 04:19 06/07/17 04:19 Labs: Abnormal Lab Results - Last 24 Hours (Table) 06/07/17 06/07/17 Range/Units 04:19 04:19 MCV 101.5 H (80.0-100.0) fL RDW 15.9 H (11.5-15.5) % Lymphocytes # 0.4 L (1.0-4.8) k/uL Carbon Dioxide 36 H (22-30) mmol/L BUN 29 H (7-17) mg/dL Glucose 124 H (74-99) mg/dL Microbiology - Last 24 Hours (Table) 06/04/17 07:40 Gram Stain - Final Sputum Sputum Culture - Final Aspergillus fumigatus 06/04/17 06:08 Blood Culture - Preliminary Blood No Growth after 72 hours Assessment and Plan Plan: This is a joint evaluation that was done along with the nurse practitioner. Patient is still struggling with her breathing. She is having some difficulties in breathing even at rest with limited amount of activity. She's been extubated. I'm going to give additional dose of Lasix 40 mg IV push. I'm going to start the patient oral Cardizem regarding her sinus tachycardia and she 'll be placed on Cardizem 30 mg by mouth 3 times a day. We'll try to split up on a chair. Infectious disease evaluated the patient and Aspergillus in the sputum is most likely a colonizer. We'll continue to follow.
[2017-06-07] MEDS: DILTIAZEM ORAL 30 MG TAB PO SCH ×3 (15:29→21:29)
--- NOTE | 2017-06-07 15:31 | P.PN ---
Progress Note - Text Progress Note Date: 06/07/17 DATE OF SERVICE: 06/07/2017 PRESENTING COMPLAINT: Increasing shortness of breath/respiratory distress HISTORY OF PRESENT ILLNESS: 72-year-old female who presented with acute COPD exacerbation shortness of breath, was in respiratory distress on admission. Subsequently intubated and placed on mechanical ventilation, extubated 06/05/2017. INTERVAL HISTORY: 06/07/2017: Patient is completing a bath with the aid is mildly anxious short of breath with minimal exertion. Currently on 3 L nasal cannula. Remains hypertensive at times. Appetite improving in about 50% of her breakfast, requires assistance to move about. Last BM prior to admission. 06/06/2017: Patient sitting up in bed appears mildly anxious, short of breath with minimal exertion, currently on 2 L nasal cannula which is her home dose of oxygen. Has been somewhat hypertensive, Appetite is fair eating between 30 and 40% of her meals, up with assistance, last BM prior to admission. REVIEW OF SYSTEMS: Done for constitutional ,cardiovascular, GI, pulmonary with relevant findings as above. CURRENT MEDICATIONS DuoNeb, Xanax, Pulmicort, Catapres, diltiazem, Perforomist, Lasix, Apresoline, Imdur, Zestril, Solu-Medrol, Protonix, Zosyn, theophylline. 300 Milligrams by mouth daily vancomycin. PHYSICAL EXAM VITAL SIGNS: Temperature 97.9, pulse 121, respiratory rate 23, blood pressure 190/79, oxygen saturation 97% on 3 L . GENERAL APPEARANCE: Lying in bed, appears mildly anxious. EYES: Pupils equal. Conjunctiva normal. NECK: JVD not raised. Mass not palpable. RESPIRATORY: Respiratory effort increased poor air entry. CARDIOVASCULAR: First and second sounds normal. Generalized edema. ABDOMEN: Soft. Liver and spleen not palpable. No tenderness. No mass palpable. PSYCHIATRY: Alert and oriented x3. Mood and affect normal. INTEGUMENT: Diffuse bruising upper and lower extremities, right arm almost completely black and blue, from wrist to shoulder. INVESTIGATIONS: LABS: Hemoglobin 12.0, MCV 101.5, RDW 15.9, carb dioxide 36, BUN 29, creatinine 0.60. Sputum culture: Positive for Aspergillus Chest x-ray: Basilar patchy densities persist although slightly improved. ASSESSMENT: -Acute severe chronic obstructive pulmonary disease exacerbation with acute purulent tracheobronchitis as well as acute on chronic hypoxic hypercarbic respiratory failure status post mechanical ventilation. -Chronic hypoxic hypercapnic respiratory failure, on home O2. -End-stage chronic obstructive pulmonary disease -Normocytic anemia, cause unknown -Essential hypertension, uncontrolled -Hyperlipidemia -Hypoalbuminemia as an acute phase reactant PLAN: Sputum culture positive for Aspergillus will continue with antibiotic therapy, no obvious cavitations or fungus balls noted per infectious disease. Continue Solu-Medrol Pulmicort and Perforomist and DuoNeb's. Patient's condition is very guarded. Discussion had by attending physician Dr. Lugo regarding CODE STATUS, patient continues to wish to be full code however does understand the tenuous nature of her current condition. Plan of care discussed with patient the bedside she is in agreement we'll follow closely. [employer] statement: Patient was seen and examined by nurse practitioner Hailey Conner and all elements of the case discussed with attending Dr. Lugo
--- NOTE | 2017-06-07 15:55 | PN ---
PROGRESS NOTE DATE OF SERVICE: 06/07/17. ATTENDING NOTE: Patient seen and examined by me. Discussed with my nurse practitioner, Dalila. The patient remains in the ICU status post ventilator. Been on the BiPAP. Did tolerate some diet. Has been out of bed. Still quite a bit short of breath. Minimal cough. Tired-appearing. PHYSICAL EXAMINATION: Temperature 98, pulse 120, respiration 20, blood pressure 159/72, pulse ox 95% on BiPAP. Lying in bed, very short of breath. Accessory muscles are working. LUNGS: Poor air entry, prolonged expiration, wheezing. CARDIOVASCULAR: First and second sounds normal. No edema. Diffuse bruising. PSYCH: AO x3. It is noted the patient's blood pressure is up and down. ASSESSMENT: 1. Acute severe chronic obstructive pulmonary disease exacerbation with acute purulent tracheobronchitis with end-stage lung disease with acute on chronic hypoxic hypercarbic respiratory failure status post mechanical ventilation, currently requiring a BiPAP. 2. Essential hypertension, uncontrolled. 3. Anxiety uncontrolled. PLAN: Continue with IV antibiotic steroids, BiPAP. I spoke to Dr. Ventura, critical care about patient's guarded prognosis. ADVANCED CARE PLANNING: I did speak at length with the patient about prognosis of end-stage lung disease. She will be on the ventilator. The prognosis is not good. She does not understand the grave prognosis. At this point she wants to think about a DNR code status. The code status remains FULL. I did explain to her the implications of being on the ventilator. Time spent for this in addition to the progress note was about 20 minutes. At this point the patient remains FULL CODE. I did inform Dr. Ventura of my discussion with the patient. MMODL / IJN: [id number] /
[2017-06-07] MEDS: SENNOSIDES 8.6 MG TAB PO SCH (20:25)
[2017-06-07] MEDS: methylPREDNISolone SOD SUCCI 40 MG/ML 1 ML VIAL IV SCH (20:26)
[2017-06-07] MEDS: BISACODYL 10 MG SUPP RECTAL SCH (20:28)
[2017-06-08] MEDS: PIPERACILLIN-TAZOBACTAM 3.375 GM in DEXTROSE/WATER 1 50ML.BAG IVPB SCH ×3 (00:38→16:03)
[2017-06-08] MEDS: HEPARIN SODIUM,PORCINE 5,000 UNIT/ML 1 ML VIAL SQ SCH ×4 (00:38→23:42)
[2017-06-08] MEDS: IPRATROPIUM-ALBUTEROL 3 ML NEB INHALATION SCH ×6 (03:41→23:46)
[2017-06-08 05:27] LABS: Basophils % (A) 0 %; Eosinophils % (A) 0 %; HCT 38.5 % (34.0-46.0); HGB 12.2 gm/dL (11.4-16.0); Lymphocytes # (A) 0.3 k/uL (1.0-4.8); Lymphocytes % (A) 4 %; MCH 32.1 pg (25.0-35.0); MCHC 31.6 g/dL (31.0-37.0); MCV 101.7 fL (80.0-100.0); Macrocytosis Slight; Monocytes # (A) 0.4 k/uL (0-1.0); Monocytes % (A) 5 %; Neutrophils # (A) 6.8 k/uL (1.3-7.7); Neutrophils % (A) 90 %; Platelet Count 232 k/uL (150-450); RBC 3.79 m/uL (3.80-5.40); RDW 14.5 % (11.5-15.5); WBC 7.6 k/uL (3.8-10.6)
[2017-06-08 05:44] LABS: Anion Gap 4 mmol/L; Blood Urea Nitrogen 23 mg/dL (7-17); Calcium 8.8 mg/dL (8.4-10.2); Carbon Dioxide 37 mmol/L (22-30); Chloride 97 mmol/L (98-107); Glucose 135 mg/dL (74-99); Potassium 4.1 mmol/L (3.5-5.1); Sodium 138 mmol/L (137-145)
[2017-06-08] MEDS: BUDESONIDE 1 MG/2 ML NEBU INHALATION SCH ×2 (08:05→20:36)
[2017-06-08] MEDS: FORMOTEROL FUMARATE 20 MCG/2 ML NEBU INHALATION SCH ×2 (08:05→20:36)
[2017-06-08] MEDS: LISINOPRIL 20 MG TAB PO SCH ×2 (08:29→21:10)
[2017-06-08] MEDS: DILTIAZEM ORAL 30 MG TAB PO SCH ×3 (08:29→21:10)
[2017-06-08] MEDS: ISOSORBIDE MONONITRATE ER 30 MG TAB.ER.24H PO SCH (08:29)
[2017-06-08] MEDS: FUROSEMIDE 20 MG TAB PO SCH (08:29)
[2017-06-08] MEDS: methylPREDNISolone SOD SUCCI 40 MG/ML 1 ML VIAL IV SCH ×2 (08:30→21:10)
[2017-06-08] MEDS: THEOPHYLLINE 24 HOUR 300 MG CAP.ER.24H PO SCH (08:30)
[2017-06-08] MEDS: SENNOSIDES 8.6 MG TAB PO SCH ×2 (08:30→21:10)
[2017-06-08] MEDS: NYSTATIN 100,000 UNIT/ML SUSP 500,000 UNIT/5 ML CUP PO SCH ×4 (08:30→21:10)
[2017-06-08] MEDS: PANTOPRAZOLE 40 MG/10 ML VIAL IVP SCH (08:30)
--- NOTE | 2017-06-08 08:40 | P.PN ---
Subjective Progress Note Date: 06/08/17 This is a 72-year-old female patient who follows with Dr. Cummings as her primary care physician. She has a history of hypertension. She also has a history of severe oxygen dependent, steroid dependent chronic obstructive pulmonary disease, Gold stage III/IV with FEV1 value of 33% of predicted. She' s been maintained on Combivent, Spiriva, theophylline and albuterol in the outpatient setting. She was just discharged from here on 06/01/2017 for another acute exacerbation admission. She had been admitted at least 4 times in the last 6 months for her COPD exacerbations. She presented to the emergency room this morning approximate 6 AM via EMS with severe respiratory distress. She was quite tachypneic in the 40s, tachycardic and hypoxic. She was given 2 DuoNeb treatments without much improvement. By the time she arrived to the emergency room she was obtunded with agonal respirations. She was subsequently intubated and placed on mechanical ventilator. She is seen today in the intensive care unit. Current vent settings assist control of 16 title volume 400 FiO2 of 50% and a PEEP of 5. Initial blood gases on 100% FiO2 revealed a pO2 of 390, pCO2 61, pH 7.34. She is sedated with propofol currently at 30 mcg/kg/m. She is receiving a second ointment saline bolus. She was given cefepime and vancomycin. Chest x-ray reveals changes of chronic obstructive pulmonary disease but no acute pulmonary process. White count 12.8. Bicarb 41. Potassium 6.1. Creatinine 0.64. Lactic acid 1.2. ProBNP 544. Influenza screen is negative. She does arouse to tactile stimuli. The patient was seen again today 06/05/2017 in follow-up in the intensive care unit. She remains intubated and on the mechanical ventilator. Current settings assist control of 16, tidal volume 400, FiO2 35% and a PEEP of 5. Morning blood gases reveal pO2 of 88, pCO2 41, pH 7.46. She is arousable to verbal stimuli. She is following simple commands on 40 mics of propofol. She remained afebrile. Hemodynamically stable. Not requiring any pressors. Blood culture reveals no growth. Sputum Culture pending. White count 7.0. Hemoglobin 10.8. Creatinine 0.50. The patient was seen again today 06/06/2017 in follow-up in the intensive care unit. She is awake and alert in no acute distress. She is maintaining O2 saturations in the 90s on 3 L/m per nasal cannula. She did realize the BiPAP throughout the evening last night. She denies any worsening shortness of breath. Still not near her baseline. She is quite dyspneic even on conversation. Her chest x-ray showed some left lower lobe atelectasis/ infiltrate. She did have a sputum positive for Aspergillus species. A follow- up computed tomography scan of the chest revealed small bilateral pleural effusions right greater than left with associated bibasilar subtle segmental atelectasis. There is a new patchy left upper lobe groundglass opacity. No clear evidence of cavitating lesion or fungal ball. She is currently afebrile. No leukocytosis. Creatinine 0.50. Hemodynamically stable. On 06/07/2017 patient is seen again in the intensive care. She is moderately dyspneic at rest, requires BiPAP support at night, becomes more dyspneic with any type of exertion, even getting bed bath. She is noted to be more tachycardic today, she is in sinus tachycardia with a rate of 120 BPM. Last night she was reportedly hypertensive with systolic as high as 190 mmHg. Lung sounds are generally diminished, with tight faint expiratory wheezes bilaterally. She wears 3 L of oxygen per nasal cannula with O2 sat at 90-92%. This morning her blood pressures 148/59. Chest x-ray was reviewed, and shows basilar patchy densities which appear slightly improved from previous exams. Remains afebrile. Lab work was reviewed, no evidence of leukocytosis, with W VC of 7.3, hemoglobin is stable at 12, serum sodium is 140, serum potassium is 3.8, carbon dioxide is 36, B1 is 29, and creatinine is 0.60. Yesterday we consulted ID service for evidence of Aspergillus fumigators in the sputum culture, antifungal agents were indicated per ID service recommendations. CT chest was obtained, and shows new small bilateral pleural effusions, right greater than the left with associated bibasilar segmental dependent atelectasis. And new patchy left upper lobe groundglass opacity that could be inflammatory, infectious or represent early developing neoplasm, follow-up will be needed. Also findings favoring pulmonary fibrosis superimposed on background of extensive centrilobular emphysematous changes. On 06/08/2016 I'm seeing this patient for a follow-up. Her heart rate is under better control once the patient started on oral Cardizem. Blood pressure remains somewhat elevated yet the patient did not receive her oral and tenderness of medications. She was on the BiPAP overnight and currently she is off the BiPAP and she is on 3 L of oxygen by nasal cannula. No follow-up chest x-ray from today. She is on the Zosyn and vancomycin combination. Her right upper extremity skin is extensively bruised from the blood pressure cough. There is areas of laceration and superficial fluid oozing from the surface of the skin. White cell count is not elevated. Renal function stable. She is tolerating her diet. No other significant events. Extremely debilitated and shortness of breath with limited amount of activity and even at rest. Objective - Vital Signs Vital signs: Vital Signs Temp 97.8 F 06/08/17 08:00 Pulse 104 H 06/08/17 08:22 Resp 25 H 06/08/17 08:00 BP 137/68 06/08/17 06:00 Pulse Ox 90 L 06/08/17 08:00 Intake & Output 06/07/17 06/08/17 06/08/17 18:59 06:59 18:59 Intake Total 562.5 745.0 405 Output Total 1974 1380 275 Balance -1412.5 -635.0 130 Weight 57.7 kg Intake: IV 562.5 520.0 40 Piperacillin-Tazobactam 3 87.5 50.0 .375 gm In Dextrose/Water 1 50ml.bag @ 12.5 mls/hr IVPB Q8HR [facility] Rx#: [id number] Sodium Chloride 0.9% 1, 100 220 40 000 ml @ 20 mls/hr IV . Q24H [facility] Rx#:[id number] Vancomycin 1,000 mg In 125 Sodium Chloride 0.9% 250 ml @ 125 mls/hr IVPB Q12H [facility] Rx#:[id number] Vancomycin 1,250 mg In 250 250 Sodium Chloride 0.9% 250 ml @ 125 mls/hr IVPB Q12H [facility] Rx#:[id number] Oral 225 365 Output: Urine 1974 1380 275 Other: Voiding Method Indwelling Catheter Indwelling Catheter # Bowel Movements 2 - Exam GENERAL EXAM: Frail, cachectic. Alert, in no acute distress. HEAD: Normocephalic. EYES: Sluggish reaction of pupils, unequal size. NOSE: Clear with pink turbinates. THROAT: No erythema or exudates. NECK: No masses, no JVD. CHEST: No chest wall deformity. LUNGS: Equal air entry with scattered end expiratory wheezes, diminished overall. There is marked diminished breath sounds bilaterally secondary to underlying COPD. CVS: S1 and S2 normal with no audible murmur, regular rhythm. ABDOMEN: No hepatosplenomegaly, normal bowel sounds, no guarding or rigidity. SPINE: No scoliosis or deformity SKIN: Multiple areas of ecchymosis nonhealing wounds. Thin frail secondary to chronic steroids. Extensive ecchymosis and bruising and areas of superficial skin sloughing in the right upper extremity. CENTRAL NERVOUS SYSTEM: Sedated. EXTREMITIES: There is no peripheral edema. No clubbing, no cyanosis. Peripheral pulses are intact. - Labs CBC & Chem 7: 06/08/17 05:00 06/08/17 05:00 Labs: Abnormal Lab Results - Last 24 Hours (Table) 06/08/17 06/08/17 Range/Units 05:00 05:00 RBC 3.79 L (3.80-5.40) m/uL MCV 101.7 H (80.0-100.0) fL Lymphocytes # 0.3 L (1.0-4.8) k/uL Chloride 97 L (98-107) mmol/L Carbon Dioxide 37 H (22-30) mmol/L BUN 23 H (7-17) mg/dL Creatinine 0.40 L (0.52-1.04) mg/dL Glucose 135 H (74-99) mg/dL Microbiology - Last 24 Hours (Table) 06/04/17 06:08 Blood Culture - Preliminary Blood No Growth after 96 hours 06/04/17 07:40 Gram Stain - Final Sputum Sputum Culture - Final Aspergillus fumigatus Assessment and Plan Plan: Assessment: #1 Acute on chronic hypoxic and hypercapnic respiratory failure requiring intubation mechanical ventilatory support secondary to severe oxygen dependent, steroid dependent, Gold stage III/IV chronic obstructive pulmonary disease with FEV1 value of 33% of predicted. Patient was successfully extubated on 2017, tolerating it well so far, with intermittent BiPAP support. Since then the patient is requiring BiPAP on and off especially overnight and currently is on 3 L about 2 by nasal cannula. Chest x-ray from yesterday showed limited bibasilar pulmonary infiltrates. She has Aspergillus in the sputum which is probably a colonizer. #2 Chronic hypoxic and hypercapnic respiratory failure with multiple admissions of exacerbations. The patient's COPD is quite advanced and the patient is short of breath at all times and even at rest. #3 Hyperkalemia, recovered and the potassium level is normalized. #4 History of hypertension. #5 Hyperlipidemia. #6 Osteoporosis. #7 Poor overall functional performance based on the above-mentioned multiple comorbidities. #8 Aspergillosis, unspecified. Was seen by ID service, it was felt that isolation of Aspergillus from the sputum and the patient on chronic steroid therapy is common, and is not indicative of deep disease. At this time there are no significant findings to prompt lung biopsy or initiation of any antifungal therapy. #9 sinus tachycardia currently on oral Cardizem Plan Continue supportive care. BiPAP on and off during the day. Bronchodilators [id number] in a combination of DuoNeb nebulized treatments. The patient is also on a combination of Perforomist and Pulmicort neb last 2 minutes twice a day. Continue IV Solu-Medrol. Advance diet. Increase physical activity. Continue systemic steroids. Continue same antibiotic coverage. Monitor the blood pressure. Oral Cardizem for sinus tachycardia. We'll look for transferring this patient to a medical floor and she is able to tolerate some limited activity today. We'll continue to follow. Long-term prognosis poor due to her advanced lung disease.
[2017-06-08] MEDS: VANCOMYCIN 1,250 MG in SODIUM CHLORIDE 0.9% 250 ML IVPB SCH (08:52)
[2017-06-08] MEDS: SODIUM CHLORIDE 0.9% 1,000 ML IV SCH (12:44)
--- NOTE | 2017-06-08 16:26 | P.PN ---
Progress Note - Text Progress Note Date: 06/08/17 DATE OF SERVICE: 06/08/2017 PRESENTING COMPLAINT: Increasing shortness of breath/respiratory distress HISTORY OF PRESENT ILLNESS: 72-year-old female who presented with acute COPD exacerbation shortness of breath, was in respiratory distress on admission. Subsequently intubated and placed on mechanical ventilation, extubated 06/05/2017. INTERVAL HISTORY: 06/08/2017: Patient sitting up in the bed eating her breakfast on nasal cannula, able to maintain her oxygen saturations on 3 L while eating. Continues to be hypertensive. Appetite is improving eating about 50% of her breakfast, requires assistance to move about. Last BM 06/08/2017. Overall condition is stabilized we'll likely transfer to medical surgical floor later today. 06/07/2017: Patient is completing a bath with the aid is mildly anxious short of breath with minimal exertion. Currently on 3 L nasal cannula. Remains hypertensive at times. Appetite improving in about 50% of her breakfast, requires assistance to move about. Last BM prior to admission. 06/06/2017: Patient sitting up in bed appears mildly anxious, short of breath with minimal exertion, currently on 2 L nasal cannula which is her home dose of oxygen. Has been somewhat hypertensive, Appetite is fair eating between 30 and 40% of her meals, up with assistance, last BM prior to admission. REVIEW OF SYSTEMS: Done for constitutional ,cardiovascular, GI, pulmonary with relevant findings as above. CURRENT MEDICATIONS DuoNeb, Xanax, Pulmicort, Catapres, diltiazem, Perforomist, Lasix, Apresoline, Imdur, Zestril, Solu-Medrol, Protonix, Zosyn, theophylline. 300 Milligrams by mouth daily vancomycin. PHYSICAL EXAM VITAL SIGNS: Temperature 97.8, pulse 99, respiratory rate 25, oxygen saturation 90% on 3 L. GENERAL APPEARANCE: Lying in bed, appears mildly anxious. EYES: Pupils equal. Conjunctiva normal. NECK: JVD not raised. Mass not palpable. RESPIRATORY: Respiratory effort increased poor air entry. CARDIOVASCULAR: First and second sounds normal. Generalized edema. ABDOMEN: Soft. Liver and spleen not palpable. No tenderness. No mass palpable. PSYCHIATRY: Alert and oriented x3. Mood and affect normal. INTEGUMENT: Diffuse bruising upper and lower extremities, right arm almost completely black and blue, from wrist to shoulder. INVESTIGATIONS: LABS: CBC grossly unremarkable, chloride 97, carbon dioxide 37, BUN 23, creatinine 0.40. Sputum culture: Positive for Aspergillus fumigatus ASSESSMENT: -Acute severe chronic obstructive pulmonary disease exacerbation with acute purulent tracheobronchitis as well as acute on chronic hypoxic hypercarbic respiratory failure status post mechanical ventilation. -Chronic hypoxic hypercapnic respiratory failure, on home O2. -End-stage chronic obstructive pulmonary disease -Normocytic anemia, cause unknown -Essential hypertension, uncontrolled -Hyperlipidemia -Hypoalbuminemia as an acute phase reactant -Medical debility secondary to chronic disease processes PLAN: Continue supportive care, BiPAP is on and off during the day, Continue Solu- Medrol Pulmicort and Perforomist and DuoNeb's. Continue antibiotic coverage and Cardizem for sinus tachycardia, overall condition is stabilized enough for patient to be transferred out of the ICU on to a medical surgical floor later today. Plan of care discussed with patient the bedside she is in agreement we'll follow closely. GERMAN INSTRUCTOR statement: Patient was seen and examined by nurse practitioner Hailey Conner and all elements of the case discussed with attending Dr. Lugo
--- NOTE | 2017-06-08 18:26 | PN ---
PROGRESS NOTE DATE OF SERVICE: 06/08/17. ATTENDING NOTE: The patient was seen and examined by me. I discussed with nurse practitioner, Ms. Conner. The patient is in the ICU on nasal cannula 3 L. Did tolerate some diet, short of breath at rest. She describes brought up a goop of sputum. EXAM: Lungs poor air entry. Prolonged expiration. Anxious, some diffuse bruising is present. INVESTIGATIONS: White count 7.6, potassium 4.1. Current medications include: DuoNeb, IV Solu-Medrol 40 q.12, IV Zosyn, vancomycin. ASSESSMENT: Acute severe end-stage chronic obstructive pulmonary disease exacerbation from acute purulent tracheobronchitis. PLAN: Continue current medication and treatment plan. Prognosis is not good. Care was discussed with the patient. Will DC vancomycin and switch her over to oral Augmentin. [id number] / IJN: [id number] /
[2017-06-08] MEDS: BISACODYL 10 MG SUPP RECTAL SCH (21:10)
[2017-06-08] MEDS: AMOXIC-POT CLAV 875-125MG 1 EACH TAB PO SCH (21:10)
[2017-06-08] MEDS: ALPRAZolam 0.25 MG TAB PO PRN (21:21)
[2017-06-09] MEDS: IPRATROPIUM-ALBUTEROL 3 ML NEB INHALATION SCH ×6 (03:57→23:51)
[2017-06-09] MEDS ORDERED: VANCOMYCIN TROUGH DUE 1 EACH MISC MISCELLANE ONE (07:00)
[2017-06-09] MEDS: BUDESONIDE 1 MG/2 ML NEBU INHALATION SCH ×2 (07:23→19:31)
[2017-06-09] MEDS: FORMOTEROL FUMARATE 20 MCG/2 ML NEBU INHALATION SCH ×2 (07:25→19:31)
[2017-06-09] MEDS: LISINOPRIL 20 MG TAB PO SCH ×2 (08:09→21:00)
[2017-06-09] MEDS: NYSTATIN 100,000 UNIT/ML SUSP 500,000 UNIT/5 ML CUP PO SCH ×4 (08:09→20:59)
[2017-06-09] MEDS: DILTIAZEM ORAL 30 MG TAB PO SCH ×3 (08:10→21:00)
[2017-06-09] MEDS: methylPREDNISolone SOD SUCCI 40 MG/ML 1 ML VIAL IV SCH ×2 (08:10→21:00)
[2017-06-09] MEDS: HEPARIN SODIUM,PORCINE 5,000 UNIT/ML 1 ML VIAL SQ SCH ×2 (08:10→17:42)
[2017-06-09] MEDS: PANTOPRAZOLE 40 MG TABLET PO SCH (08:10)
[2017-06-09] MEDS: ISOSORBIDE MONONITRATE ER 30 MG TAB.ER.24H PO SCH (08:10)
[2017-06-09] MEDS: AMOXIC-POT CLAV 875-125MG 1 EACH TAB PO SCH ×2 (08:10→21:00)
[2017-06-09] MEDS: THEOPHYLLINE 24 HOUR 300 MG CAP.ER.24H PO SCH (08:10)
[2017-06-09] MEDS: SENNOSIDES 8.6 MG TAB PO SCH ×3 (08:11→21:06)
[2017-06-09] MEDS: SODIUM CHLORIDE 0.9% 1,000 ML IV SCH (08:11)
[2017-06-09 08:57] LABS: Basophils # (A) 0.1 k/uL (0-0.2); Basophils % (A) 1 %; Eosinophils % (A) 0 %; HCT 41.3 % (34.0-46.0); Lymphocytes # (A) 0.4 k/uL (1.0-4.8); Lymphocytes % (A) 4 %; MCH 32.1 pg (25.0-35.0); MCHC 31.4 g/dL (31.0-37.0); Macrocytosis Slight; Mean Platelet Volume 7.9; Monocytes # (A) 0.5 k/uL (0-1.0); Monocytes % (A) 6 %; Neutrophils # (A) 8.1 k/uL (1.3-7.7); Neutrophils % (A) 89 %; Platelet Count 254 k/uL (150-450); RBC 4.05 m/uL (3.80-5.40); RDW 14.6 % (11.5-15.5); WBC 9.1 k/uL (3.8-10.6)
[2017-06-09 09:16] LABS: Anion Gap 8 mmol/L; Blood Urea Nitrogen 15 mg/dL (7-17); Calcium 9.5 mg/dL (8.4-10.2); Carbon Dioxide 38 mmol/L (22-30); Chloride 95 mmol/L (98-107); Glucose 124 mg/dL (74-99); Potassium 3.8 mmol/L (3.5-5.1); Sodium 141 mmol/L (137-145)
--- NOTE | 2017-06-09 15:18 | P.PN ---
Subjective Progress Note Date: 06/09/17 This is a 72-year-old female patient who follows with Dr. Cummings as her primary care physician. She has a history of hypertension. She also has a history of severe oxygen dependent, steroid dependent chronic obstructive pulmonary disease, Gold stage III/IV with FEV1 value of 33% of predicted. She' s been maintained on Combivent, Spiriva, theophylline and albuterol in the outpatient setting. She was just discharged from here on 06/01/2017 for another acute exacerbation admission. She had been admitted at least 4 times in the last 6 months for her COPD exacerbations. She presented to the emergency room this morning approximate 6 AM via EMS with severe respiratory distress. She was quite tachypneic in the 40s, tachycardic and hypoxic. She was given 2 DuoNeb treatments without much improvement. By the time she arrived to the emergency room she was obtunded with agonal respirations. She was subsequently intubated and placed on mechanical ventilator. She is seen today in the intensive care unit. Current vent settings assist control of 16 title volume 400 FiO2 of 50% and a PEEP of 5. Initial blood gases on 100% FiO2 revealed a pO2 of 390, pCO2 61, pH 7.34. She is sedated with propofol currently at 30 mcg/kg/m. She is receiving a second ointment saline bolus. She was given cefepime and vancomycin. Chest x-ray reveals changes of chronic obstructive pulmonary disease but no acute pulmonary process. White count 12.8. Bicarb 41. Potassium 6.1. Creatinine 0.64. Lactic acid 1.2. ProBNP 544. Influenza screen is negative. She does arouse to tactile stimuli. The patient was seen again today 06/05/2017 in follow-up in the intensive care unit. She remains intubated and on the mechanical ventilator. Current settings assist control of 16, tidal volume 400, FiO2 35% and a PEEP of 5. Morning blood gases reveal pO2 of 88, pCO2 41, pH 7.46. She is arousable to verbal stimuli. She is following simple commands on 40 mics of propofol. She remained afebrile. Hemodynamically stable. Not requiring any pressors. Blood culture reveals no growth. Sputum Culture pending. White count 7.0. Hemoglobin 10.8. Creatinine 0.50. The patient was seen again today 06/06/2017 in follow-up in the intensive care unit. She is awake and alert in no acute distress. She is maintaining O2 saturations in the 90s on 3 L/m per nasal cannula. She did realize the BiPAP throughout the evening last night. She denies any worsening shortness of breath. Still not near her baseline. She is quite dyspneic even on conversation. Her chest x-ray showed some left lower lobe atelectasis/ infiltrate. She did have a sputum positive for Aspergillus species. A follow- up computed tomography scan of the chest revealed small bilateral pleural effusions right greater than left with associated bibasilar subtle segmental atelectasis. There is a new patchy left upper lobe groundglass opacity. No clear evidence of cavitating lesion or fungal ball. She is currently afebrile. No leukocytosis. Creatinine 0.50. Hemodynamically stable. On 06/07/2017 patient is seen again in the intensive care. She is moderately dyspneic at rest, requires BiPAP support at night, becomes more dyspneic with any type of exertion, even getting bed bath. She is noted to be more tachycardic today, she is in sinus tachycardia with a rate of 120 BPM. Last night she was reportedly hypertensive with systolic as high as 190 mmHg. Lung sounds are generally diminished, with tight faint expiratory wheezes bilaterally. She wears 3 L of oxygen per nasal cannula with O2 sat at 90-92%. This morning her blood pressures 148/59. Chest x-ray was reviewed, and shows basilar patchy densities which appear slightly improved from previous exams. Remains afebrile. Lab work was reviewed, no evidence of leukocytosis, with W VC of 7.3, hemoglobin is stable at 12, serum sodium is 140, serum potassium is 3.8, carbon dioxide is 36, B1 is 29, and creatinine is 0.60. Yesterday we consulted ID service for evidence of Aspergillus fumigators in the sputum culture, antifungal agents were indicated per ID service recommendations. CT chest was obtained, and shows new small bilateral pleural effusions, right greater than the left with associated bibasilar segmental dependent atelectasis. And new patchy left upper lobe groundglass opacity that could be inflammatory, infectious or represent early developing neoplasm, follow-up will be needed. Also findings favoring pulmonary fibrosis superimposed on background of extensive centrilobular emphysematous changes. On 06/08/2016 I'm seeing this patient for a follow-up. Her heart rate is under better control once the patient started on oral Cardizem. Blood pressure remains somewhat elevated yet the patient did not receive her oral and tenderness of medications. She was on the BiPAP overnight and currently she is off the BiPAP and she is on 3 L of oxygen by nasal cannula. No follow-up chest x-ray from today. She is on the Zosyn and vancomycin combination. Her right upper extremity skin is extensively bruised from the blood pressure cough. There is areas of laceration and superficial fluid oozing from the surface of the skin. White cell count is not elevated. Renal function stable. She is tolerating her diet. No other significant events. Extremely debilitated and shortness of breath with limited amount of activity and even at rest. On 06/09/2017, I'm seeing this patient for a follow-up in the patient has no specific complaints. She is gradually recovering from COPD exacerbation. She is having shortness of breath with limited amount of activity however she is doing well at rest. No chest pain. No change in mental status. No other new complaints otherwise for now. She is not utilizing the BiPAP for now. She remains on IV Solu-Medrol 40 mg every 12 hours. She is also on oral Augmentin. Objective - Vital Signs Vital signs: Vital Signs Temp 97.3 F L 06/09/17 07:00 Pulse 108 H 06/09/17 11:37 Resp 18 06/09/17 07:00 BP 174/96 06/09/17 07:00 Pulse Ox 93 L 06/09/17 07:26 Intake & Output 06/08/17 06/09/17 06/09/17 18:59 06:59 18:59 Intake Total 1135 Output Total 1200 3 Balance -65 -3 Intake: IV 550 Piperacillin-Tazobactam 3 100 .375 gm In Dextrose/Water 1 50ml.bag @ 12.5 mls/hr IVPB Q8HR [facility] Rx#: [id number] Sodium Chloride 0.9% 1, 200 000 ml @ 20 mls/hr IV . Q24H [facility] Rx#:[id number] Vancomycin 1,250 mg In 250 Sodium Chloride 0.9% 250 ml @ 125 mls/hr IVPB Q12H [facility] Rx#:[id number] Oral 585 Output: Urine 1200 Stool 3 Other: Voiding Method Indwelling Catheter Bedside Commode # Voids 130 3 3 - Exam GENERAL EXAM: Frail, cachectic. Alert, in no acute distress. HEAD: Normocephalic. EYES: Sluggish reaction of pupils, unequal size. NOSE: Clear with pink turbinates. THROAT: No erythema or exudates. NECK: No masses, no JVD. CHEST: No chest wall deformity. LUNGS: Equal air entry with scattered end expiratory wheezes, diminished overall. There is marked diminished breath sounds bilaterally secondary to underlying COPD. CVS: S1 and S2 normal with no audible murmur, regular rhythm. ABDOMEN: No hepatosplenomegaly, normal bowel sounds, no guarding or rigidity. SPINE: No scoliosis or deformity SKIN: Multiple areas of ecchymosis nonhealing wounds. Thin frail secondary to chronic steroids. Extensive ecchymosis and bruising and areas of superficial skin sloughing in the right upper extremity. CENTRAL NERVOUS SYSTEM: Sedated. EXTREMITIES: There is no peripheral edema. No clubbing, no cyanosis. Peripheral pulses are intact. - Labs CBC & Chem 7: 06/09/17 08:12 06/09/17 08:12 Labs: Abnormal Lab Results - Last 24 Hours (Table) 06/09/17 06/09/17 Range/Units 08:12 08:12 MCV 102.0 H (80.0-100.0) fL Neutrophils # 8.1 H (1.3-7.7) k/uL Lymphocytes # 0.4 L (1.0-4.8) k/uL Chloride 95 L (98-107) mmol/L Carbon Dioxide 38 H (22-30) mmol/L Creatinine 0.41 L (0.52-1.04) mg/dL Glucose 124 H (74-99) mg/dL Microbiology - Last 24 Hours (Table) 06/04/17 06:08 Blood Culture - Preliminary Blood No Growth after 120 hours Assessment and Plan Plan: Assessment: #1 Acute on chronic hypoxic and hypercapnic respiratory failure requiring intubation mechanical ventilatory support secondary to severe oxygen dependent, steroid dependent, Gold stage III/IV chronic obstructive pulmonary disease with FEV1 value of 33% of predicted. Patient was successfully extubated on 2017, tolerating it well so far, with intermittent BiPAP support. Since then the patient is requiring BiPAP on and off especially overnight and currently is on 3 L about 2 by nasal cannula. Chest x-ray from yesterday showed limited bibasilar pulmonary infiltrates. She has Aspergillus in the sputum which is probably a colonizer. Since then, the patient continues to gradually improve. The patient got moved out of the intensive care unit and currently she is a medical floor. She is still on Solu Medrol 40 mg every 12 hours. She is also on bronchodilators. Antibiotics have been simplified to oral Augmentin. #2 Chronic hypoxic and hypercapnic respiratory failure with multiple admissions of exacerbations. The patient's COPD is quite advanced and the patient is short of breath at all times and even at rest. #3 Hyperkalemia, recovered and the potassium level is normalized. #4 History of hypertension. #5 Hyperlipidemia. #6 Osteoporosis. #7 Poor overall functional performance based on the above-mentioned multiple comorbidities. #8 Aspergillosis, unspecified. Was seen by ID service, it was felt that isolation of Aspergillus from the sputum and the patient on chronic steroid therapy is common, and is not indicative of deep disease. At this time there are no significant findings to prompt lung biopsy or initiation of any antifungal therapy. #9 sinus tachycardia currently on oral Cardizem Plan Continue current treatment. Physical therapy. Switch this patient to a prednisone burst taper as of tomorrow. We'll continue to follow. Long-term prognosis poor specially with her advanced lung disease.
--- NOTE | 2017-06-09 17:40 | P.PN ---
Progress Note - Text Progress Note Date: 06/09/17 DATE OF SERVICE: 06/09/2017 PRESENTING COMPLAINT: Increasing shortness of breath/respiratory distress HISTORY OF PRESENT ILLNESS: 72-year-old female who presented with acute COPD exacerbation shortness of breath, was in respiratory distress on admission. Subsequently intubated and placed on mechanical ventilation, extubated 06/05/2017. INTERVAL HISTORY: 06/09/2017: Patient sitting on the bedside commode, on nasal cannula, able to maintain her oxygen saturations on 3 L. Requires assistance to move about. Becomes short of breath with minimal exertion. Takes multiple rest breaks in order to accomplish tasks. Appetite is good eating about 50-75% of her meals. Last BM 06/08/2017. 06/08/2017: Patient sitting up in the bed eating her breakfast on nasal cannula, able to maintain her oxygen saturations on 3 L while eating. Continues to be hypertensive. Appetite is improving eating about 50% of her breakfast, requires assistance to move about. Last BM 06/08/2017. Overall condition is stabilized we'll likely transfer to medical surgical floor later today. 06/07/2017: Patient is completing a bath with the aid is mildly anxious short of breath with minimal exertion. Currently on 3 L nasal cannula. Remains hypertensive at times. Appetite improving in about 50% of her breakfast, requires assistance to move about. Last BM prior to admission. 06/06/2017: Patient sitting up in bed appears mildly anxious, short of breath with minimal exertion, currently on 2 L nasal cannula which is her home dose of oxygen. Has been somewhat hypertensive, Appetite is fair eating between 30 and 40% of her meals, up with assistance, last BM prior to admission. REVIEW OF SYSTEMS: Done for constitutional ,cardiovascular, GI, pulmonary with relevant findings as above. CURRENT MEDICATIONS DuoNeb, Xanax, Pulmicort, Catapres, diltiazem, Perforomist, Lasix, Apresoline, Imdur, Zestril, Solu-Medrol, Protonix, Zosyn, theophylline. 300 Milligrams by mouth daily vancomycin. PHYSICAL EXAM VITAL SIGNS: Temperature 97.8, pulse 99, respiratory rate 25, oxygen saturation 90% on 3 L. GENERAL APPEARANCE: Lying in bed, appears mildly anxious. EYES: Pupils equal. Conjunctiva normal. NECK: JVD not raised. Mass not palpable. RESPIRATORY: Respiratory effort increased poor air entry. CARDIOVASCULAR: First and second sounds normal. Generalized edema. ABDOMEN: Soft. Liver and spleen not palpable. No tenderness. No mass palpable. PSYCHIATRY: Alert and oriented x3. Mood and affect normal. INTEGUMENT: Diffuse bruising upper and lower extremities, right arm almost completely black and blue, from wrist to shoulder. INVESTIGATIONS: LABS: CBC grossly unremarkable, chloride 97, carbon dioxide 37, BUN 23, creatinine 0.40. Sputum culture: Positive for Aspergillus fumigatus ASSESSMENT: -Acute severe end-stage chronic obstructive pulmonary disease exacerbation from acute purulent tracheobronchitis, improving -acute on chronic hypoxic hypercarbic respiratory failure status post mechanical ventilation. -Chronic hypoxic hypercapnic respiratory failure, on home O2. -End-stage chronic obstructive pulmonary disease -Normocytic anemia, cause unknown -Essential hypertension, uncontrolled -Hyperlipidemia -Hypoalbuminemia as an acute phase reactant -Medical debility secondary to chronic disease processes PLAN: Continue supportive care, has not had need of the BiPAP, Continue Solu-Medrol with prednisone burst taper beginning tomorrow continue Pulmicort and Perforomist and DuoNeb's. Continue antibiotic coverage in the form of Augmentin and Cardizem for sinus tachycardia, long-term prognosis is poor due to her advanced lung disease. Plan of care discussed with patient the bedside she is in agreement we'll follow closely. [employer] statement: Patient was seen and examined by nurse practitioner Hailey Conner and all elements of the case discussed with attending Dr. Lugo
--- NOTE | 2017-06-09 18:57 | PN ---
PROGRESS NOTE DATE OF SERVICE: 06/09/17 ATTENDING NOTE: Patient was seen and examined by me. I discussed with nurse practitioner, Ms. Conner. The patient moved out of ICU to the medical floor. Tolerating some diet. Short of breath at rest. Has got a cough. EXAMINATION: Lungs decreased breath sounds. Prolonged expiration and wheezing. Dermatological: Diffuse bruising. Psychiatry: Patient is anxious. INVESTIGATIONS: White count 9.1, potassium 3.8. ASSESSMENT: Acute severe end-stage chronic obstructive pulmonary disease exacerbation slow to respond. PLAN: Did talk to the patient. She wants to remain a FULL CODE including being re-intubated. Prognosis remains guarded. The patient is on nebulized bronchodilator, p.o. Augmentin being switched over to oral prednisone tomorrow. Prognosis guarded. MMODL / IJN: [id number] /
[2017-06-09] MEDS: BISACODYL 10 MG SUPP RECTAL SCH ×2 (21:00→21:06)
[2017-06-10] MEDS: IPRATROPIUM-ALBUTEROL 3 ML NEB INHALATION SCH ×5 (03:39→20:56)
[2017-06-10] MEDS: FORMOTEROL FUMARATE 20 MCG/2 ML NEBU INHALATION SCH ×2 (07:31→20:56)
[2017-06-10] MEDS: BUDESONIDE 1 MG/2 ML NEBU INHALATION SCH ×2 (07:31→20:56)
[2017-06-10] MEDS: PANTOPRAZOLE 40 MG TABLET PO SCH (08:25)
[2017-06-10] MEDS: THEOPHYLLINE 24 HOUR 300 MG CAP.ER.24H PO SCH (08:26)
[2017-06-10] MEDS: LISINOPRIL 20 MG TAB PO SCH ×2 (08:26→21:14)
[2017-06-10] MEDS: DILTIAZEM ORAL 30 MG TAB PO SCH ×3 (08:26→21:14)
[2017-06-10] MEDS: ISOSORBIDE MONONITRATE ER 30 MG TAB.ER.24H PO SCH (08:26)
[2017-06-10] MEDS: AMOXIC-POT CLAV 875-125MG 1 EACH TAB PO SCH ×2 (08:26→21:14)
[2017-06-10] MEDS: FUROSEMIDE 20 MG TAB PO SCH (08:26)
[2017-06-10] MEDS: SENNOSIDES 8.6 MG TAB PO SCH ×2 (08:26→21:14)
[2017-06-10] MEDS: methylPREDNISolone SOD SUCCI 40 MG/ML 1 ML VIAL IV SCH (08:26)
[2017-06-10] MEDS: NYSTATIN 100,000 UNIT/ML SUSP 500,000 UNIT/5 ML CUP PO SCH ×4 (08:27→21:14)
[2017-06-10 08:54] LABS: Basophils # (A) 0.1 k/uL (0-0.2); Basophils % (A) 0 %; Eosinophils % (A) 0 %; HCT 45.2 % (34.0-46.0); HGB 13.7 gm/dL (11.4-16.0); Lymphocytes # (A) 0.5 k/uL (1.0-4.8); Lymphocytes % (A) 4 %; MCH 31.3 pg (25.0-35.0); MCHC 30.4 g/dL (31.0-37.0); Macrocytosis Slight; Mean Platelet Volume 8.9; Monocytes # (A) 0.5 k/uL (0-1.0); Monocytes % (A) 4 %; Neutrophils # (A) 10.2 k/uL (1.3-7.7); Neutrophils % (A) 90 %; Platelet Count 270 k/uL (150-450); RBC 4.39 m/uL (3.80-5.40); RDW 15.7 % (11.5-15.5); WBC 11.3 k/uL (3.8-10.6)
[2017-06-10 09:21] LABS: Anion Gap 6 mmol/L; Blood Urea Nitrogen 16 mg/dL (7-17); Calcium 9.7 mg/dL (8.4-10.2); Carbon Dioxide 38 mmol/L (22-30); Chloride 94 mmol/L (98-107); Glucose 119 mg/dL (74-99); Sodium 138 mmol/L (137-145)
[2017-06-10] MEDS: SODIUM CHLORIDE 0.9% 1,000 ML IV SCH (11:39)
--- NOTE | 2017-06-10 12:36 | P.PN ---
Subjective Progress Note Date: 06/10/17 Principal diagnosis: Acute on chronic hypoxic and hypercapnic respiratory failure This is a 72-year-old female patient who follows with Dr. Cummings as her primary care physician. She has a history of hypertension. She also has a history of severe oxygen dependent, steroid dependent chronic obstructive pulmonary disease, Gold stage III/IV with FEV1 value of 33% of predicted. She' s been maintained on Combivent, Spiriva, theophylline and albuterol in the outpatient setting. She was just discharged from here on 06/01/2017 for another acute exacerbation admission. She had been admitted at least 4 times in the last 6 months for her COPD exacerbations. She presented to the emergency room this morning approximate 6 AM via EMS with severe respiratory distress. She was quite tachypneic in the 40s, tachycardic and hypoxic. She was given 2 DuoNeb treatments without much improvement. By the time she arrived to the emergency room she was obtunded with agonal respirations. She was subsequently intubated and placed on mechanical ventilator. She is seen today in the intensive care unit. Current vent settings assist control of 16 title volume 400 FiO2 of 50% and a PEEP of 5. Initial blood gases on 100% FiO2 revealed a pO2 of 390, pCO2 61, pH 7.34. She is sedated with propofol currently at 30 mcg/kg/m. She is receiving a second ointment saline bolus. She was given cefepime and vancomycin. Chest x-ray reveals changes of chronic obstructive pulmonary disease but no acute pulmonary process. White count 12.8. Bicarb 41. Potassium 6.1. Creatinine 0.64. Lactic acid 1.2. ProBNP 544. Influenza screen is negative. She does arouse to tactile stimuli. The patient was seen again today 06/05/2017 in follow-up in the intensive care unit. She remains intubated and on the mechanical ventilator. Current settings assist control of 16, tidal volume 400, FiO2 35% and a PEEP of 5. Morning blood gases reveal pO2 of 88, pCO2 41, pH 7.46. She is arousable to verbal stimuli. She is following simple commands on 40 mics of propofol. She remained afebrile. Hemodynamically stable. Not requiring any pressors. Blood culture reveals no growth. Sputum Culture pending. White count 7.0. Hemoglobin 10.8. Creatinine 0.50. The patient was seen again today 06/06/2017 in follow-up in the intensive care unit. She is awake and alert in no acute distress. She is maintaining O2 saturations in the 90s on 3 L/m per nasal cannula. She did realize the BiPAP throughout the evening last night. She denies any worsening shortness of breath. Still not near her baseline. She is quite dyspneic even on conversation. Her chest x-ray showed some left lower lobe atelectasis/ infiltrate. She did have a sputum positive for Aspergillus species. A follow- up computed tomography scan of the chest revealed small bilateral pleural effusions right greater than left with associated bibasilar subtle segmental atelectasis. There is a new patchy left upper lobe groundglass opacity. No clear evidence of cavitating lesion or fungal ball. She is currently afebrile. No leukocytosis. Creatinine 0.50. Hemodynamically stable. On 06/07/2017 patient is seen again in the intensive care. She is moderately dyspneic at rest, requires BiPAP support at night, becomes more dyspneic with any type of exertion, even getting bed bath. She is noted to be more tachycardic today, she is in sinus tachycardia with a rate of 120 BPM. Last night she was reportedly hypertensive with systolic as high as 190 mmHg. Lung sounds are generally diminished, with tight faint expiratory wheezes bilaterally. She wears 3 L of oxygen per nasal cannula with O2 sat at 90-92%. This morning her blood pressures 148/59. Chest x-ray was reviewed, and shows basilar patchy densities which appear slightly improved from previous exams. Remains afebrile. Lab work was reviewed, no evidence of leukocytosis, with W VC of 7.3, hemoglobin is stable at 12, serum sodium is 140, serum potassium is 3.8, carbon dioxide is 36, B1 is 29, and creatinine is 0.60. Yesterday we consulted ID service for evidence of Aspergillus fumigators in the sputum culture, antifungal agents were indicated per ID service recommendations. CT chest was obtained, and shows new small bilateral pleural effusions, right greater than the left with associated bibasilar segmental dependent atelectasis. And new patchy left upper lobe groundglass opacity that could be inflammatory, infectious or represent early developing neoplasm, follow-up will be needed. Also findings favoring pulmonary fibrosis superimposed on background of extensive centrilobular emphysematous changes. On 06/10/2017 patient is seen in follow-up on medical surgical floor. She is really resting in bed, remains and mild to moderate amount of dyspnea even at rest. Lung sounds are positive for a few faint wheezes, generally diminished bilaterally. She did not wear the BiPAP last night, she states she is trying to wean herself off of it. She would like to start ambulating to the bathroom versus just using the bedside commode, she is hoping she'll be able to do that today. Was advised to have assistance and supervision with any type of ambulation, related to her very marginal respiratory status. But overall she is making very slow progress. Remains afebrile, hemodynamically stable, on 3 L per nasal cannula satting 97%. Microbiology results have been reviewed, blood cultures show no growth. Sputum culture from 06/04/2017 showed Aspergillus fumigatos. Patient continues on nebulized treatments, Solu-Medrol, antibiotics. Objective - Vital Signs Vital signs: Vital Signs Temp 97.1 F L 06/10/17 07:00 Pulse 88 06/10/17 11:43 Resp 18 06/10/17 07:00 BP 151/89 06/10/17 07:00 Pulse Ox 97 06/10/17 07:00 Intake & Output 06/09/17 06/10/17 06/10/17 18:59 06:59 18:59 Intake Total 850 Output Total 3 Balance -3 850 Intake: Oral 850 Output: Stool 3 Other: Voiding Method Bedside Commode # Voids 3 3 # Bowel Movements 1 - Exam GENERAL EXAM: Frail, cachectic. Alert, in no acute distress. HEAD: Normocephalic. EYES: Sluggish reaction of pupils, unequal size. NOSE: Clear with pink turbinates. THROAT: No erythema or exudates. NECK: No masses, no JVD. CHEST: No chest wall deformity. LUNGS: Equal air entry with scattered end expiratory wheezes, diminished overall. CVS: S1 and S2 normal with no audible murmur, regular rhythm. ABDOMEN: No hepatosplenomegaly, normal bowel sounds, no guarding or rigidity. SPINE: No scoliosis or deformity SKIN: Multiple areas of ecchymosis nonhealing wounds. Thin frail secondary to chronic steroids. CENTRAL NERVOUS SYSTEM: Sedated. EXTREMITIES: There is no peripheral edema. No clubbing, no cyanosis. Peripheral pulses are intact. - Labs CBC & Chem 7: 06/10/17 08:20 06/10/17 08:20 Labs: Abnormal Lab Results - Last 24 Hours (Table) 06/10/17 06/10/17 Range/Units 08:20 08:20 WBC 11.3 H (3.8-10.6) k/uL MCV 103.0 H (80.0-100.0) fL MCHC 30.4 L (31.0-37.0) g/dL RDW 15.7 H (11.5-15.5) % Neutrophils # 10.2 H (1.3-7.7) k/uL Lymphocytes # 0.5 L (1.0-4.8) k/uL Chloride 94 L (98-107) mmol/L Carbon Dioxide 38 H (22-30) mmol/L Creatinine 0.41 L (0.52-1.04) mg/dL Glucose 119 H (74-99) mg/dL Microbiology - Last 24 Hours (Table) 06/04/17 06:08 Blood Culture - Final Blood No Growth after 144 hours Assessment and Plan Plan: Assessment: #1 Acute on chronic hypoxic and hypercapnic respiratory failure requiring intubation mechanical ventilatory support secondary to severe oxygen dependent, steroid dependent, Gold stage III/IV chronic obstructive pulmonary disease with FEV1 value of 33% of predicted. Patient was successfully extubated on 2017, tolerating it well so far, with intermittent BiPAP support. #2 Chronic hypoxic and hypercapnic respiratory failure with multiple admissions of exacerbations. #3 Hyperkalemia. #4 History of hypertension. #5 Hyperlipidemia. #6 Osteoporosis. #7 Poor overall functional performance based on the above-mentioned multiple comorbidities. #8 Aspergillosis, unspecified. Was seen by ID service, it was felt that isolation of Aspergillus from the sputum and the patient on chronic steroid therapy is common, and is not indicative of deep disease. At this time there are no significant findings to prompt lung biopsy or initiation of any antifungal therapy. Plan: Patient was seen on medical surgical floor. Making very slow improvement. Still remains in mild to moderate amount of shortness of breath even at rest, becomes more dyspneic with any activity, even getting up to the bedside commode. Afebrile, continues on Augmentin, Solu-Medrol 40 mg every 12 hours, continues on oral Cardizem for rate control. Continue DuoNeb nebulized treatments, we'll obtain a repeat chest x-ray today. I performed a history & physical examination of the patient and discussed their management with my nurse practitioner, Chani Toney. I reviewed the nurse practitioner's note and agree with the documented findings and plan of care. Lung sounds are positive for tight expiratory wheezes bilaterally. The findings and the impression was discussed with the patient. I attest to the documentation by the nurse practitioner. Time with Patient: Less than 30
--- NOTE | 2017-06-10 12:54 | XR ---
EXAMINATION TYPE: XR chest 1V portable DATE OF EXAM: 06/10/2017 COMPARISON: 06/07/2017 HISTORY: Difficulty breathing TECHNIQUE: Single frontal view of the chest is obtained. FINDINGS: Bullous emphysematous changes are seen at the lung apices, right greater than left. Overal l there is pulmonary hyperinflation. No focal opacity, pleural effusion or pneumothorax. No pulmonary vascular congestion. Biapical pleural-parenchymal thickening. Cardiac silhouette is nonenlarged. Oss eous structures appear intact. Previously seen bibasilar opacities have resolved. IMPRESSION: Resolved bibasilar opacities. Bullous emphysematous changes, right greater than left.
--- NOTE | 2017-06-10 17:33 | P.PN ---
Progress Note - Text Progress Note Date: 06/10/17 DATE OF SERVICE: 06/10/2017 PRESENTING COMPLAINT: Increasing shortness of breath/respiratory distress HISTORY OF PRESENT ILLNESS: 72-year-old female who presented with acute COPD exacerbation shortness of breath, was in respiratory distress on admission. Subsequently intubated and placed on mechanical ventilation, extubated 06/05/2017. INTERVAL HISTORY: 06/10/2017: Return from the bathroom extremely short of breath remains on nasal cannula 3 L , continues to have a cough no sputum production, harsh quite a bit of time for recovery when doing activities. Short of breath with minimal exertion, and at rest Takes multiple respirations are calm pressure tasks. Appetite is good eating between 50 and 75% of her meals.last BM 06/09/2017 06/09/2017: Patient sitting on the bedside commode, on nasal cannula, able to maintain her oxygen saturations on 3 L. Requires assistance to move about. Becomes short of breath with minimal exertion. Takes multiple rest breaks in order to accomplish tasks. Appetite is good eating about 50-75% of her meals. Last BM 06/08/2017. 06/08/2017: Patient sitting up in the bed eating her breakfast on nasal cannula, able to maintain her oxygen saturations on 3 L while eating. Continues to be hypertensive. Appetite is improving eating about 50% of her breakfast, requires assistance to move about. Last BM 06/08/2017. Overall condition is stabilized we'll likely transfer to medical surgical floor later today. 06/07/2017: Patient is completing a bath with the aid is mildly anxious short of breath with minimal exertion. Currently on 3 L nasal cannula. Remains hypertensive at times. Appetite improving in about 50% of her breakfast, requires assistance to move about. Last BM prior to admission. 06/06/2017: Patient sitting up in bed appears mildly anxious, short of breath with minimal exertion, currently on 2 L nasal cannula which is her home dose of oxygen. Has been somewhat hypertensive, Appetite is fair eating between 30 and 40% of her meals, up with assistance, last BM prior to admission. REVIEW OF SYSTEMS: Done for constitutional ,cardiovascular, GI, pulmonary with relevant findings as above. CURRENT MEDICATIONS DuoNeb, Xanax, Pulmicort, Catapres, diltiazem, Perforomist, Lasix, Apresoline, Imdur, Zestril, Solu-Medrol, Protonix, Zosyn, theophylline.senna, nystatin, Augmentin PHYSICAL EXAM VITAL SIGNS: temperature 97.1, pulse 81, respiratory rate 18, blood pressure 151/89, oxygen saturation 97% on 3 L. GENERAL APPEARANCE: Lying in bed, appears mildly anxious short of breath at rest. EYES: Pupils equal. Conjunctiva normal. NECK: JVD not raised. Mass not palpable. RESPIRATORY: Respiratory effort increased poor air entry. CARDIOVASCULAR: First and second sounds normal. Generalized edema. ABDOMEN: Soft. Liver and spleen not palpable. No tenderness. No mass palpable. PSYCHIATRY: Alert and oriented x3. Mood and affect normal. INTEGUMENT: Diffuse bruising upper and lower extremities, right arm almost completely black and blue, from wrist to shoulder. INVESTIGATIONS: LABS: CBC grossly unremarkable, chloride 97, carbon dioxide 37, BUN 23, creatinine 0.40. Sputum culture: Positive for Aspergillus fumigatus ASSESSMENT: -Acute severe end-stage chronic obstructive pulmonary disease exacerbation from acute purulent tracheobronchitis, slow to respond -acute on chronic hypoxic hypercarbic respiratory failure status post mechanical ventilation. -Chronic hypoxic hypercapnic respiratory failure, on home O2. -End-stage chronic obstructive pulmonary disease -Normocytic anemia, cause unknown -Essential hypertension, uncontrolled -Hyperlipidemia -Hypoalbuminemia as an acute phase reactant -Medical debility secondary to chronic disease processes PLAN: Continue supportive care, has not been using the BiPAP, Continue Solu-Medrol with prednisone burst taper beginning tomorrow continue Pulmicort and Perforomist and DuoNeb's. Continueantibiotics in the form of Augmentin and Cardizem for sinus tachycardia, long-term prognosis is poor due to her advanced lung disease. Plan of care discussed with patient the bedside she is in agreement we'll follow closely. [employer] statement: Patient was seen and examined by nurse practitioner Hailey Conner and all elements of the case discussed with attending Dr. Lugo
--- NOTE | 2017-06-10 18:43 | PN ---
PROGRESS NOTE DATE OF SERVICE: 06/10/2017. ATTENDING NOTE: This patient was seen and examined by me. I discussed the case with the nurse practitioner Ms. Conner. The patient remains at baseline short of breath, cough; tolerating some diet. On examination, lungs have diminished breath sounds, prolonged expiration. PSYCHIATRY: Anxiety present. Temperature 96.5, pulse 95, blood pressure 141/73, pulse ox 93% on 3 L. Potassium 4. ASSESSMENT: Acute advanced end-stage chronic obstructive pulmonary disease exacerbation with acute on chronic hypoxic respiratory failure, status post mechanical ventilation. PLAN: Continue current medication and treatment plan. The patient is on DuoNeb and is also on IV Solu-Medrol. Prognosis is guarded. MMODL / IJN: [id number] /
[2017-06-10] MEDS: BISACODYL 10 MG SUPP RECTAL SCH (21:17)
--- NOTE | 2017-06-10 21:37 | P.PN ---
Subjective Progress Note Date: 06/10/17 Principal diagnosis: Respiratory failure 72-year-old female who is a known history of oxygen and steroid- dependent COPD gold stage IV with a low FEV1 of 33%. She is a chronically on steroid therapy has many complications including thin skin with many difficulties with her skin with tears and bruising. She presented to the emergency center in respiratory distress with extensive tachycardia tachypnea and hypoxia. She was intubated and subsequently has been extubated with the marked improvement of her respiratory failure. However patient has sputum culture with evidence of Aspergillus. She is showing ongoing improvement of her pulmonary status. She does have severe emphysema but is comfortable at this time. Objective - Vital Signs Vital signs: Vital Signs Temp 96.5 F L 06/10/17 15:00 Pulse 88 06/10/17 21:23 Resp 20 06/10/17 15:00 BP 141/73 06/10/17 15:00 Pulse Ox 93 L 06/10/17 15:00 Intake & Output 06/10/17 06/10/17 06/11/17 06:59 18:59 06:59 Intake Total 850 Balance 850 Intake: Oral 850 Other: Voiding Method Bedside Commode # Voids 3 1 # Bowel Movements 1 - Exam Pleasant 72-year-old woman who is cachectic and less short of breath and admission has been able to relate to the bathroom with oxygen and several events today. Still has significant dyspnea with any exertion. HEENT: Anicteric conjunctiva are pink and moist nasal mucosa grossly intact without significant lesions, there is no thrush. Neck: The neck is supple without significant lymphadenopathy or thyromegaly. Lungs: Symmetrical air entry with coarse crackles especially at the bases. Wheezes are still scattered. No dullness or egophony Heart: Irregular with an audible S1 and S2 soft S4 no distinct murmur click or rub PMI is nondisplaced Abdomen: Positive bowel sounds soft and nontender without palpable masses or organomegaly. There was no guarding or rebound. Extremities: The upper and lower extremities are almost covered with ecchymosis from her significant steroid induced skin disease, fortunately nothing is very tender at this time. IV site left arm is functioning well but has been problematic. She is lower extremity edema. He is improved from prior. The skin has no ryan open draining lesions at this time. Neuro: Awake alert oriented to person place and time. There are no acute new gross focal sensory motor deficits. - Labs CBC & Chem 7: 06/10/17 08:20 06/10/17 08:20 Labs: Abnormal Lab Results - Last 24 Hours (Table) 06/10/17 06/10/17 Range/Units 08:20 08:20 WBC 11.3 H (3.8-10.6) k/uL MCV 103.0 H (80.0-100.0) fL MCHC 30.4 L (31.0-37.0) g/dL RDW 15.7 H (11.5-15.5) % Neutrophils # 10.2 H (1.3-7.7) k/uL Lymphocytes # 0.5 L (1.0-4.8) k/uL Chloride 94 L (98-107) mmol/L Carbon Dioxide 38 H (22-30) mmol/L Creatinine 0.41 L (0.52-1.04) mg/dL Glucose 119 H (74-99) mg/dL Microbiology - Last 24 Hours (Table) 06/04/17 06:08 Blood Culture - Final Blood No Growth after 144 hours Laboratory Results WBC 11.3 k/uL (3.8-10.6) H 06/10/17 08:20 RBC 4.39 m/uL (3.80-5.40) 06/10/17 08:20 Hgb 13.7 gm/dL (11.4-16.0) 06/10/17 08:20 Hct 45.2 % (34.0-46.0) 06/10/17 08:20 MCV 103.0 fL (80.0-100.0) H 06/10/17 08:20 MCH 31.3 pg (25.0-35.0) 06/10/17 08:20 MCHC 30.4 g/dL (31.0-37.0) L 06/10/17 08:20 RDW 15.7 % (11.5-15.5) H 06/10/17 08:20 Plt Count 270 k/uL (150-450) 06/10/17 08:20 Neutrophils % 90 % 06/10/17 08:20 Lymphocytes % 4 % 06/10/17 08:20 Monocytes % 4 % 06/10/17 08:20 Eosinophils % 0 % 06/10/17 08:20 Basophils % 0 % 06/10/17 08:20 Neutrophils # 10.2 k/uL (1.3-7.7) H 06/10/17 08:20 Lymphocytes # 0.5 k/uL (1.0-4.8) L 06/10/17 08:20 Monocytes # 0.5 k/uL (0-1.0) 06/10/17 08:20 Eosinophils # 0.0 k/uL (0-0.7) 06/10/17 08:20 Basophils # 0.1 k/uL (0-0.2) 06/10/17 08:20 Macrocytosis Slight 06/10/17 08:20 PT 9.6 sec (9.0-12.0) 06/04/17 07:08 INR 1.0 (<1.2) 06/04/17 07:08 APTT 19.8 sec (22.0-30.0) L 06/04/17 07:08 Sample Site LRAD 06/05/17 04:45 ABG pH 7.46 (7.35-7.45) H 06/05/17 04:45 ABG pCO2 41 mmHg (35-45) 06/05/17 04:45 ABG pO2 88 mmHg (83-108) 06/05/17 04:45 ABG HCO3 29 mmol/L (21-25) H 06/05/17 04:45 ABG Total CO2 30 mmol/L (19-24) H 06/05/17 04:45 ABG O2 Saturation 97.0 % (94-97) 06/05/17 04:45 ABG Base Excess 5.1 mmol/L 06/05/17 04:45 Layo Test Yes 06/05/17 04:45 FiO2 35 % 06/05/17 04:45 Sodium 138 mmol/L (137-145) 06/10/17 08:20 Potassium 4.0 mmol/L (3.5-5.1) 06/10/17 08:20 Chloride 94 mmol/L (98-107) L 06/10/17 08:20 Carbon Dioxide 38 mmol/L (22-30) H 06/10/17 08:20 Anion Gap 6 mmol/L 06/10/17 08:20 BUN 16 mg/dL (7-17) 06/10/17 08:20 Creatinine 0.41 mg/dL (0.52-1.04) L 06/10/17 08:20 Est GFR (MDRD) Af Amer >60 (>60 ml/min/1.73 sqM) 06/10/17 08:20 Est GFR (MDRD) Non-Af >60 (>60 ml/min/1.73 sqM) 06/10/17 08:20 Glucose 119 mg/dL (74-99) H 06/10/17 08:20 POC Glucose (mg/dL) 104 mg/dL (75-99) H 06/05/17 17:17 POC Glu Over[employer]uler Helper ID Camryn Triana 06/05/17 17:[address] Glu mg/dL 120 06/04/17 06:08 Hemoglobin A1c 5.8 % (4.0-6.0) 06/04/17 06:08 Plasma Lactic Acid [place] 1.2 mmol/L (0.7-2.0) 06/04/17 06:08 Calcium 9.7 mg/dL (8.4-10.2) 06/10/17 08:20 Phosphorus 3.0 mg/dL (2.5-4.5) 06/06/17 05:42 Magnesium 2.1 mg/dL (1.6-2.3) 06/08/17 05:00 Total Bilirubin 0.3 mg/dL (0.2-1.3) 06/06/17 05:42 AST 25 U/L (14-36) 06/06/17 05:42 ALT 72 U/L (9-52) H 06/06/17 05:42 Alkaline Phosphatase 53 U/L (38-126) 06/06/17 05:42 Total Creatine Kinase 28 U/L (30-135) L 06/04/17 06:08 CK-MB (CK-2) 1.5 ng/mL (0.0-2.4) 06/04/17 06:08 CK-MB (CK-2) Rel Index 5.4 06/04/17 06:08 Troponin I <0.012 ng/mL (0.000-0.034) 06/04/17 06:08 NT-Pro-B Natriuret Pep 544 pg/mL 06/04/17 06:08 Total Protein 5.0 g/dL (6.3-8.2) L 06/06/17 05:42 Albumin 2.8 g/dL (3.5-5.0) L 06/06/17 05:42 Urine Color Yellow 06/04/17 06:31 Urine Appearance Cloudy (Clear) H 06/04/17 06:31 Urine pH 7.0 (5.0-8.0) 06/04/17 06:31 Ur Specific [place] 1.018 (1.001-1.035) 06/04/17 06:31 Urine Protein 1+ (Negative) H 06/04/17 06:31 Urine Glucose (UA) Negative (Negative) 06/04/17 06:31 Urine Ketones Negative (Negative) 06/04/17 06:31 Urine Blood Negative (Negative) 06/04/17 06:31 Urine Nitrite Negative (Negative) 06/04/17 06:31 Urine Bilirubin Negative (Negative) 06/04/17 06:31 Urine Urobilinogen 2.0 mg/dL (<2.0) 06/04/17 06:31 Ur Leukocyte Esterase Negative (Negative) 06/04/17 06:31 Urine RBC <1 /hpf (0-5) 06/04/17 06:31 Urine WBC 1 /hpf (0-5) 06/04/17 06:31 Ur Squamous Epith Cells <1 /hpf (0-4) 06/04/17 06:31 Amorphous Sediment Occasional /hpf (None) H 06/04/17 06:31 Hyaline Casts 7 /lpf (0-2) H 06/04/17 06:31 Urine Mucus Occasional /hpf (None) H 06/04/17 06:31 Vancomycin Trough 12.4 ug/mL 06/06/17 05:42 Influenza Type A RNA Not Detected (Not Detectd) 06/04/17 06:26 Influenza Type B (PCR) Not Detected (Not Detectd) 06/04/17 06:26 Microbiology 06/04/17 06:08 Blood Blood Culture - Final No Growth after 144 hours 06/04/17 07:40 Sputum Gram Stain - Final 06/04/17 07:40 Sputum Sputum Culture - Final Aspergillus fumigatus Assessment and Plan (1) Respiratory failure with hypoxia and hypercapnia Current Visit: Yes Status: Acute Code(s): J96.91 - RESPIRATORY FAILURE, UNSPECIFIED WITH HYPOXIA; J96.92 - RESPIRATORY FAILURE, UNSPECIFIED WITH HYPERCAPNIA SNOMED Code(s): 86497902 (2) Aspergillus Narrative/Plan: Pleasant 72-year-old female presents to Hospital with evidence of respiratory failure and required short-term intubation and sedation mechanical ventilation. She has now been extubated and is showing some improvement. She has a chronic shortness of breath that she relates is nearly to baseline. She says her significant chronic skin disorder from her chronic steroid use. Nothing is open and draining at this time. She did have computed tomography scan at admission that shows evidence of a bit of pneumonia. No evidence of any cavitary disease or fungus ball. Isolation of Aspergillus from the sputum in a patient on chronic steroid therapy is common and not indicative of deep disease. The patient should have computed tomography scan findings consistent with Aspergillus to initiate any further workup. At this time since she does not have significant findings would not proceed with lung biopsy which would be required to diagnose aspergillosis in this type of situation. She is not in need of any antifungal therapy. Patient fortunately is improving and will likely be transitioned to oral antimicrobial therapy completed the treatment of her pneumonia. Current Visit: Yes Status: Acute Code(s): B44.9 - ASPERGILLOSIS, UNSPECIFIED SNOMED Code(s): 26782502
[2017-06-11] MEDS: IPRATROPIUM-ALBUTEROL 3 ML NEB INHALATION SCH ×7 (00:57→23:13)
[2017-06-11] MEDS: FORMOTEROL FUMARATE 20 MCG/2 ML NEBU INHALATION SCH ×2 (06:59→19:01)
[2017-06-11] MEDS: BUDESONIDE 1 MG/2 ML NEBU INHALATION SCH ×2 (06:59→19:01)
[2017-06-11] MEDS: AMOXIC-POT CLAV 875-125MG 1 EACH TAB PO SCH ×2 (10:08→21:14)
[2017-06-11] MEDS: PANTOPRAZOLE 40 MG TABLET PO SCH (10:08)
[2017-06-11] MEDS: DILTIAZEM ORAL 30 MG TAB PO SCH ×3 (10:08→21:14)
[2017-06-11] MEDS: methylPREDNISolone SOD SUCCI 40 MG/ML 1 ML VIAL IV SCH (10:09)
[2017-06-11] MEDS: ISOSORBIDE MONONITRATE ER 30 MG TAB.ER.24H PO SCH (10:09)
[2017-06-11] MEDS: LISINOPRIL 20 MG TAB PO SCH ×2 (10:09→21:14)
[2017-06-11] MEDS: NYSTATIN 100,000 UNIT/ML SUSP 500,000 UNIT/5 ML CUP PO SCH ×4 (10:09→21:14)
[2017-06-11] MEDS: SENNOSIDES 8.6 MG TAB PO SCH ×2 (10:10→21:13)
[2017-06-11] MEDS: THEOPHYLLINE 24 HOUR 300 MG CAP.ER.24H PO SCH (10:10)
[2017-06-11] MEDS: SODIUM CHLORIDE 0.9% 1,000 ML IV SCH (10:10)
[2017-06-11] MEDS: ALPRAZolam 0.25 MG TAB PO PRN (10:45)
[2017-06-11 12:00] VITALS: BMI 22.5
--- NOTE | 2017-06-11 14:38 | P.PN ---
Subjective Progress Note Date: 06/11/17 Principal diagnosis: Acute on chronic hypoxic and hypercapnic respiratory failure This is a 72-year-old female patient who follows with Dr. Cummings as her primary care physician. She has a history of hypertension. She also has a history of severe oxygen dependent, steroid dependent chronic obstructive pulmonary disease, Gold stage III/IV with FEV1 value of 33% of predicted. She' s been maintained on Combivent, Spiriva, theophylline and albuterol in the outpatient setting. She was just discharged from here on 06/01/2017 for another acute exacerbation admission. She had been admitted at least 4 times in the last 6 months for her COPD exacerbations. She presented to the emergency room this morning approximate 6 AM via EMS with severe respiratory distress. She was quite tachypneic in the 40s, tachycardic and hypoxic. She was given 2 DuoNeb treatments without much improvement. By the time she arrived to the emergency room she was obtunded with agonal respirations. She was subsequently intubated and placed on mechanical ventilator. She is seen today in the intensive care unit. Current vent settings assist control of 16 title volume 400 FiO2 of 50% and a PEEP of 5. Initial blood gases on 100% FiO2 revealed a pO2 of 390, pCO2 61, pH 7.34. She is sedated with propofol currently at 30 mcg/kg/m. She is receiving a second ointment saline bolus. She was given cefepime and vancomycin. Chest x-ray reveals changes of chronic obstructive pulmonary disease but no acute pulmonary process. White count 12.8. Bicarb 41. Potassium 6.1. Creatinine 0.64. Lactic acid 1.2. ProBNP 544. Influenza screen is negative. She does arouse to tactile stimuli. The patient was seen again today 06/05/2017 in follow-up in the intensive care unit. She remains intubated and on the mechanical ventilator. Current settings assist control of 16, tidal volume 400, FiO2 35% and a PEEP of 5. Morning blood gases reveal pO2 of 88, pCO2 41, pH 7.46. She is arousable to verbal stimuli. She is following simple commands on 40 mics of propofol. She remained afebrile. Hemodynamically stable. Not requiring any pressors. Blood culture reveals no growth. Sputum Culture pending. White count 7.0. Hemoglobin 10.8. Creatinine 0.50. The patient was seen again today 06/06/2017 in follow-up in the intensive care unit. She is awake and alert in no acute distress. She is maintaining O2 saturations in the 90s on 3 L/m per nasal cannula. She did realize the BiPAP throughout the evening last night. She denies any worsening shortness of breath. Still not near her baseline. She is quite dyspneic even on conversation. Her chest x-ray showed some left lower lobe atelectasis/ infiltrate. She did have a sputum positive for Aspergillus species. A follow- up computed tomography scan of the chest revealed small bilateral pleural effusions right greater than left with associated bibasilar subtle segmental atelectasis. There is a new patchy left upper lobe groundglass opacity. No clear evidence of cavitating lesion or fungal ball. She is currently afebrile. No leukocytosis. Creatinine 0.50. Hemodynamically stable. On 06/07/2017 patient is seen again in the intensive care. She is moderately dyspneic at rest, requires BiPAP support at night, becomes more dyspneic with any type of exertion, even getting bed bath. She is noted to be more tachycardic today, she is in sinus tachycardia with a rate of 120 BPM. Last night she was reportedly hypertensive with systolic as high as 190 mmHg. Lung sounds are generally diminished, with tight faint expiratory wheezes bilaterally. She wears 3 L of oxygen per nasal cannula with O2 sat at 90-92%. This morning her blood pressures 148/59. Chest x-ray was reviewed, and shows basilar patchy densities which appear slightly improved from previous exams. Remains afebrile. Lab work was reviewed, no evidence of leukocytosis, with W VC of 7.3, hemoglobin is stable at 12, serum sodium is 140, serum potassium is 3.8, carbon dioxide is 36, B1 is 29, and creatinine is 0.60. Yesterday we consulted ID service for evidence of Aspergillus fumigators in the sputum culture, antifungal agents were indicated per ID service recommendations. CT chest was obtained, and shows new small bilateral pleural effusions, right greater than the left with associated bibasilar segmental dependent atelectasis. And new patchy left upper lobe groundglass opacity that could be inflammatory, infectious or represent early developing neoplasm, follow-up will be needed. Also findings favoring pulmonary fibrosis superimposed on background of extensive centrilobular emphysematous changes. On 06/10/2017 patient is seen in follow-up on medical surgical floor. She is really resting in bed, remains and mild to moderate amount of dyspnea even at rest. Lung sounds are positive for a few faint wheezes, generally diminished bilaterally. She did not wear the BiPAP last night, she states she is trying to wean herself off of it. She would like to start ambulating to the bathroom versus just using the bedside commode, she is hoping she'll be able to do that today. Was advised to have assistance and supervision with any type of ambulation, related to her very marginal respiratory status. But overall she is making very slow progress. Remains afebrile, hemodynamically stable, on 3 L per nasal cannula satting 97%. Microbiology results have been reviewed, blood cultures show no growth. Sputum culture from 06/04/2017 showed Aspergillus fumigatos. Patient continues on nebulized treatments, Solu-Medrol, antibiotics. On 06/11/2017 patient seen again in follow-up on medical surgical floor. Remains very marginal in terms of her exercise capacity, becomes very dyspneic with any type of exertion, this morning she required short amount of time on BiPAP support for respiratory fatigue. Lung sounds remain very diminished, with scattered wheezing, patient still has the congestive cough. Vital signs stable, patient is afebrile, hemodynamically stable, currently on 3 L per nasal cannula, normally wears 2 L at home. Continues on bronchodilators, nebulized treatments, Solu-Medrol, theophylline. Continues on Augmentin. Discharge planning is in progress for subacute rehab, but patient wants to go home. Code Status was discussed with her today, patient wants to remain a full code, despite her end-stage COPD, very poor lung function and severe limitation of exercise capacity. Patient has been intubated twice now for COPD exacerbation, he states she does not mind the intubation and mechanical ventilation events with needed. Does understand that there may be a time where a tracheostomy will be required and patient may become vent dependent. Objective - Vital Signs Vital signs: Vital Signs Temp 96.5 F L 06/11/17 07:00 Pulse 78 06/11/17 11:33 Resp 16 06/11/17 11:33 BP 153/72 06/11/17 07:00 Pulse Ox 96 01/09/18 07:00 Intake & Output 06/10/17 06/11/17 06/11/17 18:59 06:59 18:59 Intake Total 325 Balance 325 Weight 57.7 kg Intake: Oral 325 Other: Voiding Method Bedside Commode # Voids 1 3 1 # Bowel Movements 1 - Exam GENERAL EXAM: Frail, cachectic. Alert, in no acute distress. HEAD: Normocephalic. EYES: Sluggish reaction of pupils, unequal size. NOSE: Clear with pink turbinates. THROAT: No erythema or exudates. NECK: No masses, no JVD. CHEST: No chest wall deformity. LUNGS: Equal air entry with scattered end expiratory wheezes, diminished overall. CVS: S1 and S2 normal with no audible murmur, regular rhythm. ABDOMEN: No hepatosplenomegaly, normal bowel sounds, no guarding or rigidity. SPINE: No scoliosis or deformity SKIN: Multiple areas of ecchymosis nonhealing wounds. Thin frail secondary to chronic steroids. CENTRAL NERVOUS SYSTEM: Sedated. EXTREMITIES: There is no peripheral edema. No clubbing, no cyanosis. Peripheral pulses are intact. - Labs CBC & Chem 7: 06/10/17 08:20 06/10/17 08:20 Assessment and Plan Plan: Assessment: #1 Acute on chronic hypoxic and hypercapnic respiratory failure requiring intubation mechanical ventilatory support secondary to severe oxygen dependent, steroid dependent, Gold stage III/IV chronic obstructive pulmonary disease with FEV1 value of 33% of predicted. Patient was successfully extubated on 2017, tolerating it well so far, with intermittent BiPAP support. #2 Chronic hypoxic and hypercapnic respiratory failure with multiple admissions of exacerbations. #3 Hyperkalemia. #4 History of hypertension. #5 Hyperlipidemia. #6 Osteoporosis. #7 Poor overall functional performance based on the above-mentioned multiple comorbidities. #8 Aspergillosis, unspecified. Was seen by ID service, it was felt that isolation of Aspergillus from the sputum and the patient on chronic steroid therapy is common, and is not indicative of deep disease. At this time there are no significant findings to prompt lung biopsy or initiation of any antifungal therapy. Plan: Remains very limited in terms of exercise capacity, because very dyspneic with any type of exertion. Did require sharp at a time and BiPAP support this morning, we will try to see if she can qualify home BiPAP support at bedtime and as needed for her end-stage COPD. Obtain a blood gas on home dose oxygen of 2 L per nasal cannula, we will discuss with case management and her attending physician the plan. CODE STATUS was discussed the patient, she remains a full code, does understand that with her advanced COPD, and chronic hypercapnic and hypoxemic respiratory failure she may need intubation and mechanical ventilation again, may need a tracheostomy and chronic vent support. Patient stated she does not mind it isn't that sweats needed. Discharge planning is in progress for placement to subacute rehab, but patient wanted to go home. Anticipate discharge in the next 24-48 hours I performed a history & physical examination of the patient and discussed their management with my nurse practitioner, Chani Toney. I reviewed the nurse practitioner's note and agree with the documented findings and plan of care. Lung sounds are positive for tight expiratory wheezes bilaterally. The findings and the impression was discussed with the patient. I attest to the documentation by the nurse practitioner. Time with Patient: Less than 30
[2017-06-11 15:36] LABS: ABG Base Excess 10.6 mmol/L; ABG HCO3 35 mmol/L (21-25); ABG PCO2 52 mmHg (35-45); ABG PH 7.45 (7.35-7.45); ABG PO2 92 mmHg (83-108); ABG TCO2 37 mmol/L (19-24)
--- NOTE | 2017-06-11 20:02 | P.PN ---
Progress Note - Text Progress Note Date: 06/11/17 DATE OF SERVICE: 06/11/2017 PRESENTING COMPLAINT: Increasing shortness of breath/respiratory distress HISTORY OF PRESENT ILLNESS: 72-year-old female who presented with acute COPD exacerbation shortness of breath, was in respiratory distress on admission. Subsequently intubated and placed on mechanical ventilation, extubated 06/05/2017. INTERVAL HISTORY: 06/11/2017: Lying in bed currently on the BiPAP, has a cough no sputum production, harsh short of breath at rest, pursed lip breathing, must take rest breaks in order to accomplish tasks such as getting dressed, marginal exercise capacity. appetite is good eating between 50 and 75% of her meals. Last BM 06/09/2017. 06/10/2017: Return from the bathroom extremely short of breath remains on nasal cannula 3 L , continues to have a cough no sputum production, harsh quite a bit of time for recovery when doing activities. Short of breath with minimal exertion, and at rest Takes multiple rest breaks to accomplish tasks. Appetite is good eating between 50 and 75% of her meals.last BM 06/09/2017 06/09/2017: Patient sitting on the bedside commode, on nasal cannula, able to maintain her oxygen saturations on 3 L. Requires assistance to move about. Becomes short of breath with minimal exertion. Takes multiple rest breaks in order to accomplish tasks. Appetite is good eating about 50-75% of her meals. Last BM 06/08/2017. 06/08/2017: Patient sitting up in the bed eating her breakfast on nasal cannula, able to maintain her oxygen saturations on 3 L while eating. Continues to be hypertensive. Appetite is improving eating about 50% of her breakfast, requires assistance to move about. Last BM 06/08/2017. Overall condition is stabilized we'll likely transfer to medical surgical floor later today. 06/07/2017: Patient is completing a bath with the aid is mildly anxious short of breath with minimal exertion. Currently on 3 L nasal cannula. Remains hypertensive at times. Appetite improving in about 50% of her breakfast, requires assistance to move about. Last BM prior to admission. 06/06/2017: Patient sitting up in bed appears mildly anxious, short of breath with minimal exertion, currently on 2 L nasal cannula which is her home dose of oxygen. Has been somewhat hypertensive, Appetite is fair eating between 30 and 40% of her meals, up with assistance, last BM prior to admission. REVIEW OF SYSTEMS: Done for constitutional ,cardiovascular, GI, pulmonary with relevant findings as above. CURRENT MEDICATIONS DuoNeb, Xanax, Pulmicort, Catapres, diltiazem, Perforomist, Lasix, Apresoline, Imdur, Zestril, Solu-Medrol, Protonix, Zosyn, theophylline.senna, nystatin, Augmentin PHYSICAL EXAM VITAL SIGNS: Temperature 96.8, pulse 94, respiratory rate 20, blood pressure 133/63, oxygen saturation 95% on 3 L GENERAL APPEARANCE: Lying in bed, appears mildly anxious short of breath at rest. EYES: Pupils equal. Conjunctiva normal. NECK: JVD not raised. Mass not palpable. RESPIRATORY: Respiratory effort increased poor air entry. CARDIOVASCULAR: First and second sounds normal. Generalized edema. ABDOMEN: Soft. Liver and spleen not palpable. No tenderness. No mass palpable. PSYCHIATRY: Alert and oriented x3. Mood and affect normal. INTEGUMENT: Diffuse bruising upper and lower extremities, right arm almost completely black and blue, from wrist to shoulder. INVESTIGATIONS: LABS: CBC grossly unremarkable, chloride 97, carbon dioxide 37, BUN 23, creatinine 0.40. AB.45/52/92/HCO3 35, total CO2 37. Sputum culture: Positive for Aspergillus fumigatus ASSESSMENT: -Acute severe end-stage chronic obstructive pulmonary disease exacerbation from acute purulent tracheobronchitis, slow to respond -acute on chronic hypoxic hypercarbic respiratory failure status post mechanical ventilation. -Chronic hypoxic hypercapnic respiratory failure, on home O2. -End-stage chronic obstructive pulmonary disease -Normocytic anemia, cause unknown -Essential hypertension, uncontrolled -Hyperlipidemia -Hypoalbuminemia as an acute phase reactant -Medical debility secondary to chronic disease processes PLAN: Continue supportive care, will likely require the use of a BiPAP at home upon discharge. Continue Solu-Medrol with prednisone burst taper beginning tomorrow continue Pulmicort and Perforomist and DuoNeb's. Continue antibiotics in the form of Augmentin and Cardizem for sinus tachycardia, long-term prognosis is poor due to her advanced lung disease. Discharge planning is for rehab versus home, patient would really rather go home and not to rehab. Plan of care discussed with patient the bedside she is in agreement we'll follow closely. FRAUD ANALYST statement: Patient was seen and examined by nurse practitioner Hailey Conner and all elements of the case discussed with attending Dr. Lugo
[2017-06-11] MEDS: BISACODYL 10 MG SUPP RECTAL SCH (21:13)
--- NOTE | 2017-06-11 21:44 | PN ---
PROGRESS NOTE DATE OF SERVICE: 06/11/2017. ATTENDING NOTE: The patient seen and examined by me. I discussed with my nurse practitioner, Ms. Conner. The patient is here with end-stage COPD acute exacerbation. This morning her care required a BiPAP, remains to be short of breath at rest, is tolerating some meal. EXAMINATION: Temperature 96.5, pulse 84, respirations 18, blood pressure 153/72, pulse ox 96% on 3L. Sitting up in a chair, short of breath at rest. LUNGS: Poor air entry. Prolonged expiration. Accessory muscles are working. INVESTIGATIONS: Blood gas shows pCO2 of 52 and a PO2 of 35. ASSESSMENT: 1. Acute severe end-stage chronic obstructive pulmonary disease exacerbation, acute purulent tracheobronchitis. Continues to do poorly. 2. Acute on chronic hypoxic and hypercarbic respiratory failure. PLAN: Continue current medication and treatment plan. Prognosis remains poor. The patient is on Augmentin, daily IV Solu-Medrol. Prognosis not good, given poor pulmonary status and the patient is still very short of breath at rest, requiring intermittent BiPAP. MMODL / IJN: [id number] /
--- NOTE | 2017-06-11 23:32 | P.PN ---
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 She is a chronically on steroid therapy has many complications including thin skin with many difficulties with her skin with tears and bruising. She presented to the emergency center in respiratory distress with extensive tachycardia tachypnea and hypoxia. She was intubated and subsequently has been extubated with the marked improvement of her respiratory failure. However patient has sputum culture with evidence of Aspergillus. She is showing ongoing improvement of her pulmonary status. She does have severe emphysema but is comfortable at this time. Did require a short break on some BiPAP today. Patient is feeling better this evening. Objective - Vital Signs Vital signs: Vital Signs Temp 96.8 F L 06/11/17 15:00 Pulse 80 06/11/17 23:13 Resp 20 06/11/17 15:00 BP 133/63 06/11/17 15:00 Pulse Ox 95 06/11/17 15:00 Intake & Output 06/11/17 06/11/17 06/12/17 06:59 18:59 06:59 Intake Total 325 Balance 325 Weight 57.7 kg Intake: Oral 325 Other: Voiding Method Bedside Commode # Voids 3 1 # Bowel Movements 1 - Exam Pleasant 72-year-old woman who is cachectic and less short of breath and admission has been able to relate to the bathroom with oxygen and several events today. Still has significant dyspnea with any exertion. HEENT: Anicteric conjunctiva are pink and moist nasal mucosa grossly intact without significant lesions, there is no thrush. Neck: The neck is supple without significant lymphadenopathy or thyromegaly. Lungs: Symmetrical air entry with coarse crackles especially at the bases. Wheezes are still scattered. No dullness or egophony Heart: Irregular with an audible S1 and S2 soft S4 no distinct murmur click or rub PMI is nondisplaced Abdomen: Positive bowel sounds soft and nontender without palpable masses or organomegaly. There was no guarding or rebound. Extremities: The upper and lower extremities are almost covered with ecchymosis from her significant steroid induced skin disease, fortunately nothing is very tender at this time. IV site left arm is functioning well but has been problematic. She is lower extremity edema. He is improved from prior. The skin has no ryan open draining lesions at this time. Neuro: Awake alert oriented to person place and time. There are no acute new gross focal sensory motor deficits. - Labs CBC & Chem 7: 06/10/17 08:20 06/10/17 08:20 Labs: Abnormal Lab Results - Last 24 Hours (Table) 06/11/17 Range/Units 15:25 ABG pCO2 52 H (35-45) mmHg ABG HCO3 35 H (21-25) mmol/L ABG Total CO2 37 H (19-24) mmol/L Laboratory Results WBC 11.3 k/uL (3.8-10.6) H 06/10/17 08:20 RBC 4.39 m/uL (3.80-5.40) 06/10/17 08:20 Hgb 13.7 gm/dL (11.4-16.0) 06/10/17 08:20 Hct 45.2 % (34.0-46.0) 06/10/17 08:20 MCV 103.0 fL (80.0-100.0) H 06/10/17 08:20 MCH 31.3 pg (25.0-35.0) 06/10/17 08:20 MCHC 30.4 g/dL (31.0-37.0) L 06/10/17 08:20 RDW 15.7 % (11.5-15.5) H 06/10/17 08:20 Plt Count 270 k/uL (150-450) 06/10/17 08:20 Neutrophils % 90 % 06/10/17 08:20 Lymphocytes % 4 % 06/10/17 08:20 Monocytes % 4 % 06/10/17 08:20 Eosinophils % 0 % 06/10/17 08:20 Basophils % 0 % 06/10/17 08:20 Neutrophils # 10.2 k/uL (1.3-7.7) H 06/10/17 08:20 Lymphocytes # 0.5 k/uL (1.0-4.8) L 06/10/17 08:20 Monocytes # 0.5 k/uL (0-1.0) 06/10/17 08:20 Eosinophils # 0.0 k/uL (0-0.7) 06/10/17 08:20 Basophils # 0.1 k/uL (0-0.2) 06/10/17 08:20 Macrocytosis Slight 06/10/17 08:20 PT 9.6 sec (9.0-12.0) 06/04/17 07:08 INR 1.0 (<1.2) 06/04/17 07:08 APTT 19.8 sec (22.0-30.0) L 06/04/17 07:08 Sample Site RRAD 06/11/17 15:25 ABG pH 7.45 (7.35-7.45) 06/11/17 15:25 ABG pCO2 52 mmHg (35-45) H 06/11/17 15:25 ABG pO2 92 mmHg (83-108) 06/11/17 15:25 ABG HCO3 35 mmol/L (21-25) H 06/11/17 15:25 ABG Total CO2 37 mmol/L (19-24) H 06/11/17 15:25 ABG O2 Saturation 97.0 % (94-97) 06/11/17 15:25 ABG Base Excess 10.6 mmol/L 06/11/17 15:25 Layo Test Yes 06/11/17 15:25 FiO2 28 % 06/11/17 15:25 Sodium 138 mmol/L (137-145) 06/10/17 08:20 Potassium 4.0 mmol/L (3.5-5.1) 06/10/17 08:20 Chloride 94 mmol/L (98-107) L 06/10/17 08:20 Carbon Dioxide 38 mmol/L (22-30) H 06/10/17 08:20 Anion Gap 6 mmol/L 06/10/17 08:20 BUN 16 mg/dL (7-17) 06/10/17 08:20 Creatinine 0.41 mg/dL (0.52-1.04) L 06/10/17 08:20 Est GFR (MDRD) Af Amer >60 (>60 ml/min/1.73 sqM) 06/10/17 08:20 Est GFR (MDRD) Non-Af >60 (>60 ml/min/1.73 sqM) 06/10/17 08:20 Glucose 119 mg/dL (74-99) H 06/10/17 08:20 POC Glucose (mg/dL) 104 mg/dL (75-99) H 06/05/17 17:17 POC Glu Skein Bander ID Camryn Triana 06/05/17 17:[address] Glu mg/dL 120 06/04/17 06:08 Hemoglobin A1c 5.8 % (4.0-6.0) 06/04/17 06:08 Plasma Lactic Acid [place]win 1.2 mmol/L (0.7-2.0) 06/04/17 06:08 Calcium 9.7 mg/dL (8.4-10.2) 06/10/17 08:20 Phosphorus 3.0 mg/dL (2.5-4.5) 06/06/17 05:42 Magnesium 2.1 mg/dL (1.6-2.3) 06/08/17 05:00 Total Bilirubin 0.3 mg/dL (0.2-1.3) 06/06/17 05:42 AST 25 U/L (14-36) 06/06/17 05:42 ALT 72 U/L (9-52) H 06/06/17 05:42 Alkaline Phosphatase 53 U/L (38-126) 06/06/17 05:42 Total Creatine Kinase 28 U/L (30-135) L 06/04/17 06:08 CK-MB (CK-2) 1.5 ng/mL (0.0-2.4) 06/04/17 06:08 CK-MB (CK-2) Rel Index 5.4 06/04/17 06:08 Troponin I <0.012 ng/mL (0.000-0.034) 06/04/17 06:08 NT-Pro-B Natriuret Pep 544 pg/mL 06/04/17 06:08 Total Protein 5.0 g/dL (6.3-8.2) L 06/06/17 05:42 Albumin 2.8 g/dL (3.5-5.0) L 06/06/17 05:42 Urine Color Yellow 06/04/17 06:31 Urine Appearance Cloudy (Clear) H 06/04/17 06:31 Urine pH 7.0 (5.0-8.0) 06/04/17 06:31 Ur Specific Darby 1.018 (1.001-1.035) 06/04/17 06:31 Urine Protein 1+ (Negative) H 06/04/17 06:31 Urine Glucose (UA) Negative (Negative) 06/04/17 06:31 Urine Ketones Negative (Negative) 06/04/17 06:31 Urine Blood Negative (Negative) 06/04/17 06:31 Urine Nitrite Negative (Negative) 06/04/17 06:31 Urine Bilirubin Negative (Negative) 06/04/17 06:31 Urine Urobilinogen 2.0 mg/dL (<2.0) 06/04/17 06:31 Ur Leukocyte Esterase Negative (Negative) 06/04/17 06:31 Urine RBC <1 /hpf (0-5) 06/04/17 06:31 Urine WBC 1 /hpf (0-5) 06/04/17 06:31 Ur Squamous Epith Cells <1 /hpf (0-4) 06/04/17 06:31 Amorphous Sediment Occasional /hpf (None) H 06/04/17 06:31 Hyaline Casts 7 /lpf (0-2) H 06/04/17 06:31 Urine Mucus Occasional /hpf (None) H 06/04/17 06:31 Vancomycin Trough 12.4 ug/mL 06/06/17 05:42 Influenza Type A RNA Not Detected (Not Detectd) 06/04/17 06:26 Influenza Type B (PCR) Not Detected (Not Detectd) 06/04/17 06:26 Microbiology 06/04/17 06:08 Blood Blood Culture - Final No Growth after 144 hours 06/04/17 07:40 Sputum Gram Stain - Final 06/04/17 07:40 Sputum Sputum Culture - Final Aspergillus fumigatus Assessment and Plan (1) Respiratory failure with hypoxia and hypercapnia Current Visit: Yes Status: Acute Code(s): J96.91 - RESPIRATORY FAILURE, UNSPECIFIED WITH HYPOXIA; J96.92 - RESPIRATORY FAILURE, UNSPECIFIED WITH HYPERCAPNIA SNOMED Code(s): 18897093 (2) Aspergillus Narrative/Plan: Pleasant 72-year-old female presents to Hospital with evidence of respiratory failure and required short-term intubation and sedation mechanical ventilation. She has now been extubated and is showing some improvement. She has a chronic shortness of breath that she relates is nearly to baseline. She says her significant chronic skin disorder from her chronic steroid use. Nothing is open and draining at this time. She did have computed tomography scan at admission that shows evidence of a bit of pneumonia. No evidence of any cavitary disease or fungus ball. Isolation of Aspergillus from the sputum in a patient on chronic steroid therapy is common and not indicative of deep disease. The patient should have computed tomography scan findings consistent with Aspergillus to initiate any further workup. At this time since she does not have significant findings would not proceed with lung biopsy which would be required to diagnose aspergillosis in this type of situation. She is not in need of any antifungal therapy. Patient fortunately is improving and will likely be transitioned to oral antimicrobial therapy to complete the treatment of her pneumonia. Current Visit: Yes Status: Acute Code(s): B44.9 - ASPERGILLOSIS, UNSPECIFIED SNOMED Code(s): 32644628
[2017-06-12] MEDS: IPRATROPIUM-ALBUTEROL 3 ML NEB INHALATION SCH ×5 (03:24→19:43)
[2017-06-12] MEDS: BUDESONIDE 1 MG/2 ML NEBU INHALATION SCH ×2 (07:17→19:43)
[2017-06-12] MEDS: FORMOTEROL FUMARATE 20 MCG/2 ML NEBU INHALATION SCH ×2 (07:17→19:43)
[2017-06-12] MEDS: THEOPHYLLINE 24 HOUR 300 MG CAP.ER.24H PO SCH (08:20)
[2017-06-12] MEDS: PANTOPRAZOLE 40 MG TABLET PO SCH (08:20)
[2017-06-12] MEDS: methylPREDNISolone SOD SUCCI 40 MG/ML 1 ML VIAL IV SCH (08:20)
[2017-06-12] MEDS: DILTIAZEM ORAL 30 MG TAB PO SCH ×3 (08:20→22:46)
[2017-06-12] MEDS: AMOXIC-POT CLAV 875-125MG 1 EACH TAB PO SCH ×2 (08:20→20:43)
[2017-06-12] MEDS: NYSTATIN 100,000 UNIT/ML SUSP 500,000 UNIT/5 ML CUP PO SCH ×4 (08:20→20:43)
[2017-06-12] MEDS: FUROSEMIDE 20 MG TAB PO SCH (08:20)
[2017-06-12] MEDS: ISOSORBIDE MONONITRATE ER 30 MG TAB.ER.24H PO SCH (08:20)
[2017-06-12] MEDS: LISINOPRIL 20 MG TAB PO SCH ×2 (08:20→20:43)
[2017-06-12] MEDS: SENNOSIDES 8.6 MG TAB PO SCH ×2 (09:19→20:35)
[2017-06-12] MEDS: SODIUM CHLORIDE 0.9% 1,000 ML IV SCH (10:48)
--- NOTE | 2017-06-12 12:21 | P.PN ---
Subjective Progress Note Date: 06/12/17 Principal diagnosis: Acute on chronic hypoxic and hypercapnic respiratory failure This is a 72-year-old female patient who follows with Dr. Cummings as her primary care physician. She has a history of hypertension. She also has a history of severe oxygen dependent, steroid dependent chronic obstructive pulmonary disease, Gold stage III/IV with FEV1 value of 33% of predicted. She' s been maintained on Combivent, Spiriva, theophylline and albuterol in the outpatient setting. She was just discharged from here on 06/01/2017 for another acute exacerbation admission. She had been admitted at least 4 times in the last 6 months for her COPD exacerbations. She presented to the emergency room this morning approximate 6 AM via EMS with severe respiratory distress. She was quite tachypneic in the 40s, tachycardic and hypoxic. She was given 2 DuoNeb treatments without much improvement. By the time she arrived to the emergency room she was obtunded with agonal respirations. She was subsequently intubated and placed on mechanical ventilator. She is seen today in the intensive care unit. Current vent settings assist control of 16 title volume 400 FiO2 of 50% and a PEEP of 5. Initial blood gases on 100% FiO2 revealed a pO2 of 390, pCO2 61, pH 7.34. She is sedated with propofol currently at 30 mcg/kg/m. She is receiving a second ointment saline bolus. She was given cefepime and vancomycin. Chest x-ray reveals changes of chronic obstructive pulmonary disease but no acute pulmonary process. White count 12.8. Bicarb 41. Potassium 6.1. Creatinine 0.64. Lactic acid 1.2. ProBNP 544. Influenza screen is negative. She does arouse to tactile stimuli. The patient was seen again today 06/05/2017 in follow-up in the intensive care unit. She remains intubated and on the mechanical ventilator. Current settings assist control of 16, tidal volume 400, FiO2 35% and a PEEP of 5. Morning blood gases reveal pO2 of 88, pCO2 41, pH 7.46. She is arousable to verbal stimuli. She is following simple commands on 40 mics of propofol. She remained afebrile. Hemodynamically stable. Not requiring any pressors. Blood culture reveals no growth. Sputum Culture pending. White count 7.0. Hemoglobin 10.8. Creatinine 0.50. The patient was seen again today 06/06/2017 in follow-up in the intensive care unit. She is awake and alert in no acute distress. She is maintaining O2 saturations in the 90s on 3 L/m per nasal cannula. She did realize the BiPAP throughout the evening last night. She denies any worsening shortness of breath. Still not near her baseline. She is quite dyspneic even on conversation. Her chest x-ray showed some left lower lobe atelectasis/ infiltrate. She did have a sputum positive for Aspergillus species. A follow- up computed tomography scan of the chest revealed small bilateral pleural effusions right greater than left with associated bibasilar subtle segmental atelectasis. There is a new patchy left upper lobe groundglass opacity. No clear evidence of cavitating lesion or fungal ball. She is currently afebrile. No leukocytosis. Creatinine 0.50. Hemodynamically stable. On 06/07/2017 patient is seen again in the intensive care. She is moderately dyspneic at rest, requires BiPAP support at night, becomes more dyspneic with any type of exertion, even getting bed bath. She is noted to be more tachycardic today, she is in sinus tachycardia with a rate of 120 BPM. Last night she was reportedly hypertensive with systolic as high as 190 mmHg. Lung sounds are generally diminished, with tight faint expiratory wheezes bilaterally. She wears 3 L of oxygen per nasal cannula with O2 sat at 90-92%. This morning her blood pressures 148/59. Chest x-ray was reviewed, and shows basilar patchy densities which appear slightly improved from previous exams. Remains afebrile. Lab work was reviewed, no evidence of leukocytosis, with W VC of 7.3, hemoglobin is stable at 12, serum sodium is 140, serum potassium is 3.8, carbon dioxide is 36, B1 is 29, and creatinine is 0.60. Yesterday we consulted ID service for evidence of Aspergillus fumigators in the sputum culture, antifungal agents were indicated per ID service recommendations. CT chest was obtained, and shows new small bilateral pleural effusions, right greater than the left with associated bibasilar segmental dependent atelectasis. And new patchy left upper lobe groundglass opacity that could be inflammatory, infectious or represent early developing neoplasm, follow-up will be needed. Also findings favoring pulmonary fibrosis superimposed on background of extensive centrilobular emphysematous changes. On 06/10/2017 patient is seen in follow-up on medical surgical floor. She is really resting in bed, remains and mild to moderate amount of dyspnea even at rest. Lung sounds are positive for a few faint wheezes, generally diminished bilaterally. She did not wear the BiPAP last night, she states she is trying to wean herself off of it. She would like to start ambulating to the bathroom versus just using the bedside commode, she is hoping she'll be able to do that today. Was advised to have assistance and supervision with any type of ambulation, related to her very marginal respiratory status. But overall she is making very slow progress. Remains afebrile, hemodynamically stable, on 3 L per nasal cannula satting 97%. Microbiology results have been reviewed, blood cultures show no growth. Sputum culture from 06/04/2017 showed Aspergillus fumigatos. Patient continues on nebulized treatments, Solu-Medrol, antibiotics. On 06/11/2017 patient seen again in follow-up on medical surgical floor. Remains very marginal in terms of her exercise capacity, becomes very dyspneic with any type of exertion, this morning she required short amount of time on BiPAP support for respiratory fatigue. Lung sounds remain very diminished, with scattered wheezing, patient still has the congestive cough. Vital signs stable, patient is afebrile, hemodynamically stable, currently on 3 L per nasal cannula, normally wears 2 L at home. Continues on bronchodilators, nebulized treatments, Solu-Medrol, theophylline. Continues on Augmentin. Discharge planning is in progress for subacute rehab, but patient wants to go home. Code Status was discussed with her today, patient wants to remain a full code, despite her end-stage COPD, very poor lung function and severe limitation of exercise capacity. Patient has been intubated twice now for COPD exacerbation, he states she does not mind the intubation and mechanical ventilation events with needed. Does understand that there may be a time where a tracheostomy will be required and patient may become vent dependent. On 06/12/2017 patient seen in follow-up. She did not require BiPAP support last night, lung sounds are still positive for scattered wheezes, but this is somewhat improved from yesterday. Still remains very dyspneic with exertion, such as going to the bathroom or taken a shower. is currently down to 2 L, with O2 sat at 96%. Afebrile, no new positive cultures other than the sputum culture from 06/04/2017 with evidence of Aspergillus. patient is improving, and was transitioned to oral Augmentin. We attempted to qualify her for BiPAP for her diagnoses of advanced COPD, unfortunately her blood gas results do not qualify her for it, her pCO2 was 52, and the requirements is pCO2 of 55 or higher. Objective - Vital Signs Vital signs: Vital Signs Temp 96.3 F L 06/12/17 07:00 Pulse 80 06/12/17 11:45 Resp 20 06/12/17 07:00 BP 139/73 06/12/17 07:00 Pulse Ox 96 06/12/17 07:21 Intake & Output 06/11/17 06/12/17 06/12/17 18:59 06:59 18:59 Intake Total 480 Balance 480 Weight 57.7 kg Intake: Oral 480 Other: Voiding Method Bedside Commode # Voids 1 2 - Exam GENERAL EXAM: Frail, cachectic. Alert, in no acute distress. HEAD: Normocephalic. EYES: Sluggish reaction of pupils, unequal size. NOSE: Clear with pink turbinates. THROAT: No erythema or exudates. NECK: No masses, no JVD. CHEST: No chest wall deformity. LUNGS: Equal air entry with scattered end expiratory wheezes, diminished overall. CVS: S1 and S2 normal with no audible murmur, regular rhythm. ABDOMEN: No hepatosplenomegaly, normal bowel sounds, no guarding or rigidity. SPINE: No scoliosis or deformity SKIN: Multiple areas of ecchymosis nonhealing wounds. Thin frail secondary to chronic steroids. CENTRAL NERVOUS SYSTEM: Sedated. EXTREMITIES: There is no peripheral edema. No clubbing, no cyanosis. Peripheral pulses are intact. - Labs CBC & Chem 7: 06/10/17 08:20 06/10/17 08:20 Labs: Abnormal Lab Results - Last 24 Hours (Table) 06/11/17 Range/Units 15:25 ABG pCO2 52 H (35-45) mmHg ABG HCO3 35 H (21-25) mmol/L ABG Total CO2 37 H (19-24) mmol/L Assessment and Plan Plan: Assessment: #1 Acute on chronic hypoxic and hypercapnic respiratory failure requiring intubation mechanical ventilatory support secondary to severe oxygen dependent, steroid dependent, Gold stage III/IV chronic obstructive pulmonary disease with FEV1 value of 33% of predicted. Patient was successfully extubated on 2017, tolerating it well so far, with intermittent BiPAP support. #2 Chronic hypoxic and hypercapnic respiratory failure with multiple admissions of exacerbations. #3 Hyperkalemia. #4 History of hypertension. #5 Hyperlipidemia. #6 Osteoporosis. #7 Poor overall functional performance based on the above-mentioned multiple comorbidities. #8 Aspergillosis, unspecified. Was seen by ID service, it was felt that isolation of Aspergillus from the sputum and the patient on chronic steroid therapy is common, and is not indicative of deep disease. At this time there are no significant findings to prompt lung biopsy or initiation of any antifungal therapy. Plan: Patient is making slow improvement, still becomes very dyspneic with any type of ambulation, she was attempted to take a shower today. lung sounds show better air entry bilaterally, still wheezy. Did not require BiPAP support last night. Her blood gas done this morning, did not qualify her for home BiPAP, as a pCO2 needed to be over 55, and hers was 52. Patient was transitioned to oral Augmentin, her IV Solu-Medrol was dropped to once daily, continue with DuoNeb nebulized treatments. Anticipate discharge in next 24 hours. I performed a history & physical examination of the patient and discussed their management with my nurse practitioner, Chani Toney. I reviewed the nurse practitioner's note and agree with the documented findings and plan of care. Lung sounds are positive for tight expiratory wheezes bilaterally. The findings and the impression was discussed with the patient. I attest to the documentation by the nurse practitioner. Time with Patient: Less than 30
--- NOTE | 2017-06-12 19:39 | PN ---
PROGRESS NOTE DATE OF SERVICE: 06/12/2017. ATTENDING NOTE: This patient was seen and examined by me. I discussed the case with the nurse practitioner Ms. Conner. Patient was admitted with end-stage COPD, remains in and out short of breath. Continues to tolerate some diet. I spoke to Dr. Parker. The patient wishes to remain FULL CODE and wants to be intubated if she goes down. PHYSICAL EXAMINATION: Temperature 97, pulse 94, respiration 20, blood pressure 140/65, pulse ox 94% on 3 L. Short of breath at rest. LUNGS: Poor air entry. Prolonged expiration. Wheezing. CARDIOVASCULAR: First and second sounds normal. PSYCH: Alert and oriented x3. Slight anxiety present. INVESTIGATIONS: No blood work from today. ASSESSMENT: 1. Acute severe end-stage chronic obstructive pulmonary disease exacerbation. 2. Acute purulent tracheobronchitis; not doing too well. Patient wishes to remain FULL CODE and wants to be intubated. PLAN: Discussed with Dr. Parker. Patient to continue on current management and treatment plan. Looking at patient possibly going to the [facility]CF. The patient remains on IV Solu- Medrol, nebulized bronchodilators. Prognosis is not good. MMODL / IJN: [id number] / LEN
--- NOTE | 2017-06-12 20:25 | P.PN ---
Progress Note - Text Progress Note Date: 06/12/17 DATE OF SERVICE: 06/12/2017 PRESENTING COMPLAINT: Increasing shortness of breath/respiratory distress HISTORY OF PRESENT ILLNESS: 72-year-old female who presented with acute COPD exacerbation shortness of breath, was in respiratory distress on admission. Subsequently intubated and placed on mechanical ventilation, extubated 06/05/2017. INTERVAL HISTORY: 06/12/2017: Sitting up in the bed on nasal cannula has a cough no sputum production, short of breath at rest, less so today, getting ready to get up and take a shower.marginal exercise capacity. Appetite is good eating between 50 and 75% of her meals, last BM06/10/2017.pulmonology attempted to qualify patient for home BiPAP and she did not qualify. 06/11/2017: Lying in bed currently on the BiPAP, has a cough no sputum production, harsh short of breath at rest, pursed lip breathing, must take rest breaks in order to accomplish tasks such as getting dressed, marginal exercise capacity. appetite is good eating between 50 and 75% of her meals. Last BM 06/09/2017. 06/10/2017: Return from the bathroom extremely short of breath remains on nasal cannula 3 L , continues to have a cough no sputum production, harsh quite a bit of time for recovery when doing activities. Short of breath with minimal exertion, and at rest Takes multiple rest breaks to accomplish tasks. Appetite is good eating between 50 and 75% of her meals.last BM 06/09/2017 06/09/2017: Patient sitting on the bedside commode, on nasal cannula, able to maintain her oxygen saturations on 3 L. Requires assistance to move about. Becomes short of breath with minimal exertion. Takes multiple rest breaks in order to accomplish tasks. Appetite is good eating about 50-75% of her meals. Last BM 06/08/2017. 06/08/2017: Patient sitting up in the bed eating her breakfast on nasal cannula, able to maintain her oxygen saturations on 3 L while eating. Continues to be hypertensive. Appetite is improving eating about 50% of her breakfast, requires assistance to move about. Last BM 06/08/2017. Overall condition is stabilized we'll likely transfer to medical surgical floor later today. 06/07/2017: Patient is completing a bath with the aid is mildly anxious short of breath with minimal exertion. Currently on 3 L nasal cannula. Remains hypertensive at times. Appetite improving in about 50% of her breakfast, requires assistance to move about. Last BM prior to admission. 06/06/2017: Patient sitting up in bed appears mildly anxious, short of breath with minimal exertion, currently on 2 L nasal cannula which is her home dose of oxygen. Has been somewhat hypertensive, Appetite is fair eating between 30 and 40% of her meals, up with assistance, last BM prior to admission. REVIEW OF SYSTEMS: Done for constitutional ,cardiovascular, GI, pulmonary with relevant findings as above. CURRENT MEDICATIONS DuoNeb, Xanax, Pulmicort, Catapres, diltiazem, Perforomist, Lasix, Apresoline, Imdur, Zestril, Solu-Medrol, Protonix, Zosyn, theophylline.senna, nystatin, Augmentin PHYSICAL EXAM VITAL SIGNS: temperature 97.1, pulse 94, respirations 18, blood pressure 140/65, oxygen saturation 94% on 3 L GENERAL APPEARANCE: sitting up in bed, appears mildly anxious short of breath at rest. EYES: Pupils equal. Conjunctiva normal. NECK: JVD not raised. Mass not palpable. RESPIRATORY: Respiratory effort increased poor air entry,expiratory wheezing, conversational dyspnea CARDIOVASCULAR: First and second sounds normal. Generalized edema. ABDOMEN: Soft. Liver and spleen not palpable. No tenderness. No mass palpable. PSYCHIATRY: Alert and oriented x3. Mood and affect normal. INTEGUMENT: Diffuse bruising upper and lower extremities, right arm almost completely black and blue, from wrist to shoulder. INVESTIGATIONS: LABS: none new Sputum culture: Positive for Aspergillus fumigatus ASSESSMENT: -Acute severe end-stage chronic obstructive pulmonary disease exacerbation from acute purulent tracheobronchitis, slow to respond -acute on chronic hypoxic hypercarbic respiratory failure status post mechanical ventilation. -Chronic hypoxic hypercapnic respiratory failure, on home O2. -End-stage chronic obstructive pulmonary disease -Normocytic anemia, cause unknown -Essential hypertension, uncontrolled -Hyperlipidemia -Hypoalbuminemia as an acute phase reactant -Medical debility secondary to chronic disease processes PLAN: Continue supportive care, did not qualify forthe use of a BiPAP at home upon discharge. Continue Solu-Medrol continue Pulmicort and Perforomist and DuoNeb' s. Continue antibiotics in the form of Augmentin and Cardizem for sinus tachycardia, long-term prognosis is poor due to her advanced lung disease. Discharge planning is for rehab.hopefully in the next 48 hours we will plan for discharge. Plan of care discussed with patient the bedside she is in agreement we'll follow closely. GARMENT LOOPER statement: Patient was seen and examined by nurse practitioner Hailey Conner and all elements of the case discussed with attending Dr. Lugo
[2017-06-12] MEDS: BISACODYL 10 MG SUPP RECTAL SCH (20:34)
[2017-06-12] MEDS: ALPRAZolam 0.25 MG TAB PO PRN (20:43)
--- NOTE | 2017-06-12 23:06 | P.PN ---
Subjective Progress Note Date: 06/12/17 Principal diagnosis: Respiratory failure 72-year-old female who is a known history of oxygen and steroid- dependent COPD gold stage IV with a low FEV1 of 33%. She is a chronically on steroid therapy has many complications including thin skin with many difficulties with her skin with tears and bruising. She presented to the emergency center in respiratory distress with extensive tachycardia tachypnea and hypoxia. She was intubated and subsequently has been extubated with the marked improvement of her respiratory failure. However patient has sputum culture with evidence of Aspergillus. She is showing ongoing improvement of her pulmonary status. She does have severe emphysema but is comfortable at this time. Patient is feeling better this evening. Objective - Vital Signs Vital signs: Vital Signs Temp 97.1 F L 06/12/17 15:00 Pulse 92 06/12/17 20:05 Resp 18 06/12/17 15:00 BP 140/65 06/12/17 15:00 Pulse Ox 94 L 06/12/17 15:00 Intake & Output 06/12/17 06/12/17 06/13/17 06:59 18:59 06:59 Intake Total 480 Balance 480 Intake: Oral 480 Other: Voiding Method Bedside Commode # Voids 2 3 - Exam Pleasant 72-year-old woman who is cachectic and less short of breath and admission has been able to relate to the bathroom with oxygen and several events today. Still has significant dyspnea with any exertion. HEENT: Anicteric conjunctiva are pink and moist nasal mucosa grossly intact without significant lesions, there is no thrush. Neck: The neck is supple without significant lymphadenopathy or thyromegaly. Lungs: Symmetrical air entry with coarse crackles especially at the bases. Wheezes are still scattered. No dullness or egophony Heart: Irregular with an audible S1 and S2 soft S4 no distinct murmur click or rub PMI is nondisplaced Abdomen: Positive bowel sounds soft and nontender without palpable masses or organomegaly. There was no guarding or rebound. Extremities: The upper and lower extremities are almost covered with ecchymosis from her significant steroid induced skin disease, fortunately nothing is very tender at this time. IV site left arm is functioning well but has been problematic. She is lower extremity edema. He is improved from prior. The skin has no ryan open draining lesions at this time. Neuro: Awake alert oriented to person place and time. There are no acute new gross focal sensory motor deficits. - Labs CBC & Chem 7: 06/10/17 08:20 06/10/17 08:20 Labs: Laboratory Results WBC 11.3 k/uL (3.8-10.6) H 06/10/17 08:20 RBC 4.39 m/uL (3.80-5.40) 06/10/17 08:20 Hgb 13.7 gm/dL (11.4-16.0) 06/10/17 08:20 Hct 45.2 % (34.0-46.0) 06/10/17 08:20 MCV 103.0 fL (80.0-100.0) H 06/10/17 08:20 MCH 31.3 pg (25.0-35.0) 06/10/17 08:20 MCHC 30.4 g/dL (31.0-37.0) L 06/10/17 08:20 RDW 15.7 % (11.5-15.5) H 06/10/17 08:20 Plt Count 270 k/uL (150-450) 06/10/17 08:20 Neutrophils % 90 % 06/10/17 08:20 Lymphocytes % 4 % 06/10/17 08:20 Monocytes % 4 % 06/10/17 08:20 Eosinophils % 0 % 06/10/17 08:20 Basophils % 0 % 06/10/17 08:20 Neutrophils # 10.2 k/uL (1.3-7.7) H 06/10/17 08:20 Lymphocytes # 0.5 k/uL (1.0-4.8) L 06/10/17 08:20 Monocytes # 0.5 k/uL (0-1.0) 06/10/17 08:20 Eosinophils # 0.0 k/uL (0-0.7) 06/10/17 08:20 Basophils # 0.1 k/uL (0-0.2) 06/10/17 08:20 Macrocytosis Slight 06/10/17 08:20 PT 9.6 sec (9.0-12.0) 06/04/17 07:08 INR 1.0 (<1.2) 06/04/17 07:08 APTT 19.8 sec (22.0-30.0) L 06/04/17 07:08 Sample Site RRAD 06/11/17 15:25 ABG pH 7.45 (7.35-7.45) 06/11/17 15:25 ABG pCO2 52 mmHg (35-45) H 06/11/17 15:25 ABG pO2 92 mmHg (83-108) 06/11/17 15:25 ABG HCO3 35 mmol/L (21-25) H 06/11/17 15:25 ABG Total CO2 37 mmol/L (19-24) H 06/11/17 15:25 ABG O2 Saturation 97.0 % (94-97) 06/11/17 15:25 ABG Base Excess 10.6 mmol/L 06/11/17 15:25 Layo Test Yes 06/11/17 15:25 FiO2 28 % 06/11/17 15:25 Sodium 138 mmol/L (137-145) 06/10/17 08:20 Potassium 4.0 mmol/L (3.5-5.1) 06/10/17 08:20 Chloride 94 mmol/L (98-107) L 06/10/17 08:20 Carbon Dioxide 38 mmol/L (22-30) H 06/10/17 08:20 Anion Gap 6 mmol/L 06/10/17 08:20 BUN 16 mg/dL (7-17) 06/10/17 08:20 Creatinine 0.41 mg/dL (0.52-1.04) L 06/10/17 08:20 Est GFR (MDRD) Af Amer >60 (>60 ml/min/1.73 sqM) 06/10/17 08:20 Est GFR (MDRD) Non-Af >60 (>60 ml/min/1.73 sqM) 06/10/17 08:20 Glucose 119 mg/dL (74-99) H 06/10/17 08:20 POC Glucose (mg/dL) 104 mg/dL (75-99) H 06/05/17 17:17 POC Glu Ambulance Dispatcher ID Camryn Triana 06/05/17 17:[address] Glu mg/dL 120 06/04/17 06:08 Hemoglobin A1c 5.8 % (4.0-6.0) 06/04/17 06:08 Plasma Lactic Acid [place] 1.2 mmol/L (0.7-2.0) 06/04/17 06:08 Calcium 9.7 mg/dL (8.4-10.2) 06/10/17 08:20 Phosphorus 3.0 mg/dL (2.5-4.5) 06/06/17 05:42 Magnesium 2.1 mg/dL (1.6-2.3) 06/08/17 05:00 Total Bilirubin 0.3 mg/dL (0.2-1.3) 06/06/17 05:42 AST 25 U/L (14-36) 06/06/17 05:42 ALT 72 U/L (9-52) H 06/06/17 05:42 Alkaline Phosphatase 53 U/L (38-126) 06/06/17 05:42 Total Creatine Kinase 28 U/L (30-135) L 06/04/17 06:08 CK-MB (CK-2) 1.5 ng/mL (0.0-2.4) 06/04/17 06:08 CK-MB (CK-2) Rel Index 5.4 06/04/17 06:08 Troponin I <0.012 ng/mL (0.000-0.034) 06/04/17 06:08 NT-Pro-B Natriuret Pep 544 pg/mL 06/04/17 06:08 Total Protein 5.0 g/dL (6.3-8.2) L 06/06/17 05:42 Albumin 2.8 g/dL (3.5-5.0) L 06/06/17 05:42 Urine Color Yellow 06/04/17 06:31 Urine Appearance Cloudy (Clear) H 06/04/17 06:31 Urine pH 7.0 (5.0-8.0) 06/04/17 06:31 Ur Specific [place] 1.018 (1.001-1.035) 06/04/17 06:31 Urine Protein 1+ (Negative) H 06/04/17 06:31 Urine Glucose (UA) Negative (Negative) 06/04/17 06:31 Urine Ketones Negative (Negative) 06/04/17 06:31 Urine Blood Negative (Negative) 06/04/17 06:31 Urine Nitrite Negative (Negative) 06/04/17 06:31 Urine Bilirubin Negative (Negative) 06/04/17 06:31 Urine Urobilinogen 2.0 mg/dL (<2.0) 06/04/17 06:31 Ur Leukocyte Esterase Negative (Negative) 06/04/17 06:31 Urine RBC <1 /hpf (0-5) 06/04/17 06:31 Urine WBC 1 /hpf (0-5) 06/04/17 06:31 Ur Squamous Epith Cells <1 /hpf (0-4) 06/04/17 06:31 Amorphous Sediment Occasional /hpf (None) H 06/04/17 06:31 Hyaline Casts 7 /lpf (0-2) H 06/04/17 06:31 Urine Mucus Occasional /hpf (None) H 06/04/17 06:31 Vancomycin Trough 12.4 ug/mL 06/06/17 05:42 Influenza Type A RNA Not Detected (Not Detectd) 06/04/17 06:26 Influenza Type B (PCR) Not Detected (Not Detectd) 06/04/17 06:26 Microbiology 06/04/17 06:08 Blood Blood Culture - Final No Growth after 144 hours 06/04/17 07:40 Sputum Gram Stain - Final 06/04/17 07:40 Sputum Sputum Culture - Final Aspergillus fumigatus Assessment and Plan (1) Respiratory failure with hypoxia and hypercapnia Current Visit: Yes Status: Acute Code(s): J96.91 - RESPIRATORY FAILURE, UNSPECIFIED WITH HYPOXIA; J96.92 - RESPIRATORY FAILURE, UNSPECIFIED WITH HYPERCAPNIA SNOMED Code(s): 51031502 (2) Aspergillus Narrative/Plan: Pleasant 72-year-old female presents to Hospital with evidence of respiratory failure and required short-term intubation and sedation mechanical ventilation. She has now been extubated and is showing some improvement. She has a chronic shortness of breath that she relates is nearly to baseline. She says her significant chronic skin disorder from her chronic steroid use. Nothing is open and draining at this time. She did have computed tomography scan at admission that shows evidence of a bit of pneumonia. No evidence of any cavitary disease or fungus ball. Isolation of Aspergillus from the sputum in a patient on chronic steroid therapy is common and not indicative of deep disease. The patient should have computed tomography scan findings consistent with Aspergillus to initiate any further workup. At this time since she does not have significant findings would not proceed with lung biopsy which would be required to diagnose aspergillosis in this type of situation. She is not in need of any antifungal therapy. Patient fortunately is improving and will be transitioned to oral antimicrobial therapy to complete the treatment of her pneumonia with Augmentin. Current Visit: Yes Status: Acute Code(s): B44.9 - ASPERGILLOSIS, UNSPECIFIED SNOMED Code(s): 60510876
[2017-06-13] MEDS: IPRATROPIUM-ALBUTEROL 3 ML NEB INHALATION SCH ×7 (00:11→23:46)
[2017-06-13] MEDS: FORMOTEROL FUMARATE 20 MCG/2 ML NEBU INHALATION SCH ×2 (07:27→20:08)
[2017-06-13] MEDS: BUDESONIDE 1 MG/2 ML NEBU INHALATION SCH ×2 (07:27→20:08)
[2017-06-13] MEDS: PANTOPRAZOLE 40 MG TABLET PO SCH (08:20)
[2017-06-13] MEDS: methylPREDNISolone SOD SUCCI 40 MG/ML 1 ML VIAL IV SCH (08:21)
[2017-06-13] MEDS: ISOSORBIDE MONONITRATE ER 30 MG TAB.ER.24H PO SCH (08:21)
[2017-06-13] MEDS: DILTIAZEM ORAL 30 MG TAB PO SCH ×3 (08:21→21:32)
[2017-06-13] MEDS: AMOXIC-POT CLAV 875-125MG 1 EACH TAB PO SCH ×2 (08:21→21:32)
[2017-06-13] MEDS: LISINOPRIL 20 MG TAB PO SCH ×2 (08:21→21:32)
[2017-06-13] MEDS: SODIUM CHLORIDE 0.9% 1,000 ML IV SCH (08:22)
[2017-06-13] MEDS: NYSTATIN 100,000 UNIT/ML SUSP 500,000 UNIT/5 ML CUP PO SCH ×4 (08:22→21:32)
[2017-06-13] MEDS: SENNOSIDES 8.6 MG TAB PO SCH ×3 (08:22→21:43)
[2017-06-13] MEDS: THEOPHYLLINE 24 HOUR 300 MG CAP.ER.24H PO SCH (08:22)
--- NOTE | 2017-06-13 10:24 | P.PN ---
Subjective Progress Note Date: 06/13/17 Principal diagnosis: Acute on chronic hypoxic and hypercapnic respiratory failure This is a 72-year-old female patient who follows with Dr. Cummings as her primary care physician. She has a history of hypertension. She also has a history of severe oxygen dependent, steroid dependent chronic obstructive pulmonary disease, Gold stage III/IV with FEV1 value of 33% of predicted. She' s been maintained on Combivent, Spiriva, theophylline and albuterol in the outpatient setting. She was just discharged from here on 06/01/2017 for another acute exacerbation admission. She had been admitted at least 4 times in the last 6 months for her COPD exacerbations. She presented to the emergency room this morning approximate 6 AM via EMS with severe respiratory distress. She was quite tachypneic in the 40s, tachycardic and hypoxic. She was given 2 DuoNeb treatments without much improvement. By the time she arrived to the emergency room she was obtunded with agonal respirations. She was subsequently intubated and placed on mechanical ventilator. She is seen today in the intensive care unit. Current vent settings assist control of 16 title volume 400 FiO2 of 50% and a PEEP of 5. Initial blood gases on 100% FiO2 revealed a pO2 of 390, pCO2 61, pH 7.34. She is sedated with propofol currently at 30 mcg/kg/m. She is receiving a second ointment saline bolus. She was given cefepime and vancomycin. Chest x-ray reveals changes of chronic obstructive pulmonary disease but no acute pulmonary process. White count 12.8. Bicarb 41. Potassium 6.1. Creatinine 0.64. Lactic acid 1.2. ProBNP 544. Influenza screen is negative. She does arouse to tactile stimuli. The patient was seen again today 06/05/2017 in follow-up in the intensive care unit. She remains intubated and on the mechanical ventilator. Current settings assist control of 16, tidal volume 400, FiO2 35% and a PEEP of 5. Morning blood gases reveal pO2 of 88, pCO2 41, pH 7.46. She is arousable to verbal stimuli. She is following simple commands on 40 mics of propofol. She remained afebrile. Hemodynamically stable. Not requiring any pressors. Blood culture reveals no growth. Sputum Culture pending. White count 7.0. Hemoglobin 10.8. Creatinine 0.50. The patient was seen again today 06/06/2017 in follow-up in the intensive care unit. She is awake and alert in no acute distress. She is maintaining O2 saturations in the 90s on 3 L/m per nasal cannula. She did realize the BiPAP throughout the evening last night. She denies any worsening shortness of breath. Still not near her baseline. She is quite dyspneic even on conversation. Her chest x-ray showed some left lower lobe atelectasis/ infiltrate. She did have a sputum positive for Aspergillus species. A follow- up computed tomography scan of the chest revealed small bilateral pleural effusions right greater than left with associated bibasilar subtle segmental atelectasis. There is a new patchy left upper lobe groundglass opacity. No clear evidence of cavitating lesion or fungal ball. She is currently afebrile. No leukocytosis. Creatinine 0.50. Hemodynamically stable. On 06/07/2017 patient is seen again in the intensive care. She is moderately dyspneic at rest, requires BiPAP support at night, becomes more dyspneic with any type of exertion, even getting bed bath. She is noted to be more tachycardic today, she is in sinus tachycardia with a rate of 120 BPM. Last night she was reportedly hypertensive with systolic as high as 190 mmHg. Lung sounds are generally diminished, with tight faint expiratory wheezes bilaterally. She wears 3 L of oxygen per nasal cannula with O2 sat at 90-92%. This morning her blood pressures 148/59. Chest x-ray was reviewed, and shows basilar patchy densities which appear slightly improved from previous exams. Remains afebrile. Lab work was reviewed, no evidence of leukocytosis, with W VC of 7.3, hemoglobin is stable at 12, serum sodium is 140, serum potassium is 3.8, carbon dioxide is 36, B1 is 29, and creatinine is 0.60. Yesterday we consulted ID service for evidence of Aspergillus fumigators in the sputum culture, antifungal agents were indicated per ID service recommendations. CT chest was obtained, and shows new small bilateral pleural effusions, right greater than the left with associated bibasilar segmental dependent atelectasis. And new patchy left upper lobe groundglass opacity that could be inflammatory, infectious or represent early developing neoplasm, follow-up will be needed. Also findings favoring pulmonary fibrosis superimposed on background of extensive centrilobular emphysematous changes. On 06/10/2017 patient is seen in follow-up on medical surgical floor. She is really resting in bed, remains and mild to moderate amount of dyspnea even at rest. Lung sounds are positive for a few faint wheezes, generally diminished bilaterally. She did not wear the BiPAP last night, she states she is trying to wean herself off of it. She would like to start ambulating to the bathroom versus just using the bedside commode, she is hoping she'll be able to do that today. Was advised to have assistance and supervision with any type of ambulation, related to her very marginal respiratory status. But overall she is making very slow progress. Remains afebrile, hemodynamically stable, on 3 L per nasal cannula satting 97%. Microbiology results have been reviewed, blood cultures show no growth. Sputum culture from 06/04/2017 showed Aspergillus fumigatos. Patient continues on nebulized treatments, Solu-Medrol, antibiotics. On 06/11/2017 patient seen again in follow-up on medical surgical floor. Remains very marginal in terms of her exercise capacity, becomes very dyspneic with any type of exertion, this morning she required short amount of time on BiPAP support for respiratory fatigue. Lung sounds remain very diminished, with scattered wheezing, patient still has the congestive cough. Vital signs stable, patient is afebrile, hemodynamically stable, currently on 3 L per nasal cannula, normally wears 2 L at home. Continues on bronchodilators, nebulized treatments, Solu-Medrol, theophylline. Continues on Augmentin. Discharge planning is in progress for subacute rehab, but patient wants to go home. Code Status was discussed with her today, patient wants to remain a full code, despite her end-stage COPD, very poor lung function and severe limitation of exercise capacity. Patient has been intubated twice now for COPD exacerbation, he states she does not mind the intubation and mechanical ventilation events with needed. Does understand that there may be a time where a tracheostomy will be required and patient may become vent dependent. On 06/12/2017 patient seen in follow-up. She did not require BiPAP support last night, lung sounds are still positive for scattered wheezes, but this is somewhat improved from yesterday. Still remains very dyspneic with exertion, such as going to the bathroom or taken a shower. is currently down to 2 L, with O2 sat at 96%. Afebrile, no new positive cultures other than the sputum culture from 06/04/2017 with evidence of Aspergillus. patient is improving, and was transitioned to oral Augmentin. We attempted to qualify her for BiPAP for her diagnoses of advanced COPD, unfortunately her blood gas results do not qualify her for it, her pCO2 was 52, and the requirements is pCO2 of 55 or higher. On 06/13/2017 patient seen in follow-up. Resting in bed, in no acute distress. Lung sounds are still positive for diffuse wheezes, worse with any exertion. Yesterday we talked to her about subacute rehab, and patient agreed for short- term subacute rehab placement. She remains afebrile, vital signs are stable. Yesterday she was able to shower and get cleaned up with assistance. She is trying to gradually increase her activity, still requires frequent periods of rest to recover from exertional dyspnea. No new growth on the cultures, other than the sputum culture that was positive for Aspergillus. Antibiotics per ID service. Patient remains stable from pulmonary standpoint, and can be discharged to subacute rehab today. No acute events overnight. Objective - Vital Signs Vital signs: Vital Signs Temp 97.6 F 06/13/17 07:00 Pulse 100 06/13/17 07:48 Resp 20 06/13/17 07:00 BP 101/49 06/13/17 07:00 Pulse Ox 95 06/13/17 07:00 Intake & Output 06/12/17 06/13/17 06/13/17 18:59 06:59 18:59 Other: # Voids 3 2 - Exam GENERAL EXAM: Frail, cachectic. Alert, in no acute distress. HEAD: Normocephalic. EYES: Sluggish reaction of pupils, unequal size. NOSE: Clear with pink turbinates. THROAT: No erythema or exudates. NECK: No masses, no JVD. CHEST: No chest wall deformity. LUNGS: Equal air entry with scattered end expiratory wheezes, diminished overall. CVS: S1 and S2 normal with no audible murmur, regular rhythm. ABDOMEN: No hepatosplenomegaly, normal bowel sounds, no guarding or rigidity. SPINE: No scoliosis or deformity SKIN: Multiple areas of ecchymosis nonhealing wounds. Thin frail secondary to chronic steroids. CENTRAL NERVOUS SYSTEM: Sedated. EXTREMITIES: There is no peripheral edema. No clubbing, no cyanosis. Peripheral pulses are intact. - Labs CBC & Chem 7: 06/10/17 08:20 06/10/17 08:20 Assessment and Plan Plan: Assessment: #1 Acute on chronic hypoxic and hypercapnic respiratory failure requiring intubation mechanical ventilatory support secondary to severe oxygen dependent, steroid dependent, Gold stage III/IV chronic obstructive pulmonary disease with FEV1 value of 33% of predicted. Patient was successfully extubated on 2017, tolerating it well so far, with intermittent BiPAP support. #2 Chronic hypoxic and hypercapnic respiratory failure with multiple admissions of exacerbations. #3 Hyperkalemia. #4 History of hypertension. #5 Hyperlipidemia. #6 Osteoporosis. #7 Poor overall functional performance based on the above-mentioned multiple comorbidities. #8 Aspergillosis, unspecified. Was seen by ID service, it was felt that isolation of Aspergillus from the sputum and the patient on chronic steroid therapy is common, and is not indicative of deep disease. At this time there are no significant findings to prompt lung biopsy or initiation of any antifungal therapy. Plan: Overall patient is stable from pulmonary standpoint, slow improvement, she started to gradually increase her activity, yesterday she was able to take a shower with assistance, she has been walking to the bathroom, still requires frequent periods of rest to recover from dyspnea. But no acute events overnight , vital signs are stable, patient is on 2 L per nasal cannula, this is her home dose oxygen. No new growth on the cultures. Antibiotics per ID service. She is stable for discharge to subacute rehab today from pulmonary standpoint. Follow-up with Dr. Parker in the office in one week. I performed a history & physical examination of the patient and discussed their management with my nurse practitioner, hCani Toney. I reviewed the nurse practitioner's note and agree with the documented findings and plan of care. Lung sounds are positive for tight expiratory wheezes bilaterally. The findings and the impression was discussed with the patient. I attest to the documentation by the nurse practitioner. Time with Patient: Less than 30
[2017-06-13] MEDS: ALPRAZolam 0.25 MG TAB PO PRN ×2 (13:04→21:41)
--- NOTE | 2017-06-13 17:53 | P.PN ---
Progress Note - Text Progress Note Date: 06/13/17 DATE OF SERVICE: 06/13/2017 PRESENTING COMPLAINT: Increasing shortness of breath/respiratory distress HISTORY OF PRESENT ILLNESS: 72-year-old female who presented with acute COPD exacerbation shortness of breath, was in respiratory distress on admission. Subsequently intubated and placed on mechanical ventilation, extubated 06/05/2017. INTERVAL HISTORY: 06/13/2017: Lying in bed on nasal cannula cough noted no sputum production, afebrile short of breath at rest, exercise capacity continues to be marginal. Is able to get up and around with some assistance and a walker. Appetite is good eating between 50 and 75% of her meals. Last BM 06/13/2017. Plans for subacute rehab once insurance authorization has been obtained. 06/12/2017: Sitting up in the bed on nasal cannula has a cough no sputum production, short of breath at rest, less so today, getting ready to get up and take a shower.marginal exercise capacity. Appetite is good eating between 50 and 75% of her meals, last BM06/10/2017.pulmonology attempted to qualify patient for home BiPAP and she did not qualify. 06/11/2017: Lying in bed currently on the BiPAP, has a cough no sputum production, harsh short of breath at rest, pursed lip breathing, must take rest breaks in order to accomplish tasks such as getting dressed, marginal exercise capacity. appetite is good eating between 50 and 75% of her meals. Last BM 06/09/2017. 06/10/2017: Return from the bathroom extremely short of breath remains on nasal cannula 3 L , continues to have a cough no sputum production, harsh quite a bit of time for recovery when doing activities. Short of breath with minimal exertion, and at rest Takes multiple rest breaks to accomplish tasks. Appetite is good eating between 50 and 75% of her meals.last BM 06/09/2017 06/09/2017: Patient sitting on the bedside commode, on nasal cannula, able to maintain her oxygen saturations on 3 L. Requires assistance to move about. Becomes short of breath with minimal exertion. Takes multiple rest breaks in order to accomplish tasks. Appetite is good eating about 50-75% of her meals. Last BM 06/08/2017. 06/08/2017: Patient sitting up in the bed eating her breakfast on nasal cannula, able to maintain her oxygen saturations on 3 L while eating. Continues to be hypertensive. Appetite is improving eating about 50% of her breakfast, requires assistance to move about. Last BM 06/08/2017. Overall condition is stabilized we'll likely transfer to medical surgical floor later today. 06/07/2017: Patient is completing a bath with the aid is mildly anxious short of breath with minimal exertion. Currently on 3 L nasal cannula. Remains hypertensive at times. Appetite improving in about 50% of her breakfast, requires assistance to move about. Last BM prior to admission. 06/06/2017: Patient sitting up in bed appears mildly anxious, short of breath with minimal exertion, currently on 2 L nasal cannula which is her home dose of oxygen. Has been somewhat hypertensive, Appetite is fair eating between 30 and 40% of her meals, up with assistance, last BM prior to admission. REVIEW OF SYSTEMS: Done for constitutional ,cardiovascular, GI, pulmonary with relevant findings as above. CURRENT MEDICATIONS DuoNeb, Xanax, Augmentin Pulmicort, Catapres, diltiazem, Perforomist, Lasix, Apresoline, Imdur, Zestril, Solu-Medrol, Protonix, theophylline.senna, nystatin , PHYSICAL EXAM VITAL SIGNS: Temperature 97.6, pulse 86, respiratory rate 20, blood pressure 101/49, oxygen saturation 95% on 2 L GENERAL APPEARANCE: Lying in bed, appears mildly anxious short of breath at rest. EYES: Pupils equal. Conjunctiva normal. NECK: JVD not raised. Mass not palpable. RESPIRATORY: Respiratory effort increased poor air entry,expiratory wheezing, conversational dyspnea CARDIOVASCULAR: First and second sounds normal. Generalized edema. ABDOMEN: Soft. Liver and spleen not palpable. No tenderness. No mass palpable. PSYCHIATRY: Alert and oriented x3. Mood and affect normal. INTEGUMENT: Diffuse bruising upper and lower extremities, right arm almost completely black and blue, from wrist to shoulder. INVESTIGATIONS: LABS: None new Sputum culture: Positive for Aspergillus fumigatus ASSESSMENT: -Acute severe end-stage chronic obstructive pulmonary disease exacerbation from acute purulent tracheobronchitis, slow to respond -acute on chronic hypoxic hypercarbic respiratory failure status post mechanical ventilation. -Chronic hypoxic hypercapnic respiratory failure, on home O2. -End-stage chronic obstructive pulmonary disease -Normocytic anemia, cause unknown -Essential hypertension, uncontrolled -Hyperlipidemia -Hypoalbuminemia as an acute phase reactant -Medical debility secondary to chronic disease processes PLAN: Continue supportive care, Continue Solu-Medrol continue Pulmicort and Perforomist and DuoNeb's. Continue antibiotics in the form of Augmentin and Cardizem for sinus tachycardia, long-term prognosis is poor due to her advanced lung disease. Will benefit from a short stay at rehab awaiting placement, hopefully in the next 24-48 hours. Plan of care discussed with patient the bedside she is in agreement we'll follow closely. [employer] statement: Patient was seen and examined by nurse practitioner Hailey Conner and all elements of the case discussed with attending Dr. Lugo
[2017-06-13] MEDS: BISACODYL 10 MG SUPP RECTAL SCH (21:33)
--- NOTE | 2017-06-13 23:17 | P.PN ---
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 She is a chronically on steroid therapy has many complications including thin skin with many difficulties with her skin with tears and bruising. She presented to the emergency center in respiratory distress with extensive tachycardia tachypnea and hypoxia. She was intubated and subsequently has been extubated with the marked improvement of her respiratory failure. However patient has sputum culture with evidence of Aspergillus. She is showing ongoing improvement of her pulmonary status. She does have severe emphysema but is comfortable at this time. Patient is feeling better this evening. Objective - Vital Signs Vital signs: Vital Signs Temp 96.6 F L 06/13/17 22:45 Pulse 100 06/13/17 22:45 Resp 17 06/13/17 22:45 BP 108/55 06/13/17 22:45 Pulse Ox 95 06/13/17 22:45 Intake & Output 06/13/17 06/13/17 06/14/17 06:59 18:59 06:59 Other: # Voids 2 5 2 - Exam Pleasant 72-year-old woman who is cachectic and less short of breath and admission has been able to relate to the bathroom with oxygen and several events today. Still has significant dyspnea with any exertion. HEENT: Anicteric conjunctiva are pink and moist nasal mucosa grossly intact without significant lesions, there is no thrush. Neck: The neck is supple without significant lymphadenopathy or thyromegaly. Lungs: Symmetrical air entry with coarse crackles especially at the bases. Wheezes are still scattered. No dullness or egophony Heart: Irregular with an audible S1 and S2 soft S4 no distinct murmur click or rub PMI is nondisplaced Abdomen: Positive bowel sounds soft and nontender without palpable masses or organomegaly. There was no guarding or rebound. Extremities: The upper and lower extremities are almost covered with ecchymosis from her significant steroid induced skin disease, fortunately nothing is very tender at this time. IV site left arm is functioning well but has been problematic. She is lower extremity edema. He is improved from prior. The skin has no ryan open draining lesions at this time. Neuro: Awake alert oriented to person place and time. There are no acute new gross focal sensory motor deficits. - Labs CBC & Chem 7: 06/10/17 08:20 06/10/17 08:20 Labs: Laboratory Results WBC 11.3 k/uL (3.8-10.6) H 06/10/17 08:20 RBC 4.39 m/uL (3.80-5.40) 06/10/17 08:20 Hgb 13.7 gm/dL (11.4-16.0) 06/10/17 08:20 Hct 45.2 % (34.0-46.0) 06/10/17 08:20 MCV 103.0 fL (80.0-100.0) H 06/10/17 08:20 MCH 31.3 pg (25.0-35.0) 06/10/17 08:20 MCHC 30.4 g/dL (31.0-37.0) L 06/10/17 08:20 RDW 15.7 % (11.5-15.5) H 06/10/17 08:20 Plt Count 270 k/uL (150-450) 06/10/17 08:20 Neutrophils % 90 % 06/10/17 08:20 Lymphocytes % 4 % 06/10/17 08:20 Monocytes % 4 % 06/10/17 08:20 Eosinophils % 0 % 06/10/17 08:20 Basophils % 0 % 06/10/17 08:20 Neutrophils # 10.2 k/uL (1.3-7.7) H 06/10/17 08:20 Lymphocytes # 0.5 k/uL (1.0-4.8) L 06/10/17 08:20 Monocytes # 0.5 k/uL (0-1.0) 06/10/17 08:20 Eosinophils # 0.0 k/uL (0-0.7) 06/10/17 08:20 Basophils # 0.1 k/uL (0-0.2) 06/10/17 08:20 Macrocytosis Slight 06/10/17 08:20 PT 9.6 sec (9.0-12.0) 06/04/17 07:08 INR 1.0 (<1.2) 06/04/17 07:08 APTT 19.8 sec (22.0-30.0) L 06/04/17 07:08 Sample Site RRAD 06/11/17 15:25 ABG pH 7.45 (7.35-7.45) 06/11/17 15:25 ABG pCO2 52 mmHg (35-45) H 06/11/17 15:25 ABG pO2 92 mmHg (83-108) 06/11/17 15:25 ABG HCO3 35 mmol/L (21-25) H 06/11/17 15:25 ABG Total CO2 37 mmol/L (19-24) H 06/11/17 15:25 ABG O2 Saturation 97.0 % (94-97) 06/11/17 15:25 ABG Base Excess 10.6 mmol/L 06/11/17 15:25 Layo Test Yes 06/11/17 15:25 FiO2 28 % 06/11/17 15:25 Sodium 138 mmol/L (137-145) 06/10/17 08:20 Potassium 4.0 mmol/L (3.5-5.1) 06/10/17 08:20 Chloride 94 mmol/L (98-107) L 06/10/17 08:20 Carbon Dioxide 38 mmol/L (22-30) H 06/10/17 08:20 Anion Gap 6 mmol/L 06/10/17 08:20 BUN 16 mg/dL (7-17) 06/10/17 08:20 Creatinine 0.41 mg/dL (0.52-1.04) L 06/10/17 08:20 Est GFR (MDRD) Af Amer >60 (>60 ml/min/1.73 sqM) 06/10/17 08:20 Est GFR (MDRD) Non-Af >60 (>60 ml/min/1.73 sqM) 06/10/17 08:20 Glucose 119 mg/dL (74-99) H 06/10/17 08:20 POC Glucose (mg/dL) 104 mg/dL (75-99) H 06/05/17 17:17 POC Glu Automatic Nailing Machine Feeder ID Camryn Triana 06/05/17 17:[address] Glu mg/dL 120 06/04/17 06:08 Hemoglobin A1c 5.8 % (4.0-6.0) 06/04/17 06:08 Plasma Lactic Acid [place] 1.2 mmol/L (0.7-2.0) 06/04/17 06:08 Calcium 9.7 mg/dL (8.4-10.2) 06/10/17 08:20 Phosphorus 3.0 mg/dL (2.5-4.5) 06/06/17 05:42 Magnesium 2.1 mg/dL (1.6-2.3) 06/08/17 05:00 Total Bilirubin 0.3 mg/dL (0.2-1.3) 06/06/17 05:42 AST 25 U/L (14-36) 06/06/17 05:42 ALT 72 U/L (9-52) H 06/06/17 05:42 Alkaline Phosphatase 53 U/L (38-126) 06/06/17 05:42 Total Creatine Kinase 28 U/L (30-135) L 06/04/17 06:08 CK-MB (CK-2) 1.5 ng/mL (0.0-2.4) 06/04/17 06:08 CK-MB (CK-2) Rel Index 5.4 06/04/17 06:08 Troponin I <0.012 ng/mL (0.000-0.034) 06/04/17 06:08 NT-Pro-B Natriuret Pep 544 pg/mL 06/04/17 06:08 Total Protein 5.0 g/dL (6.3-8.2) L 06/06/17 05:42 Albumin 2.8 g/dL (3.5-5.0) L 06/06/17 05:42 Urine Color Yellow 06/04/17 06:31 Urine Appearance Cloudy (Clear) H 06/04/17 06:31 Urine pH 7.0 (5.0-8.0) 06/04/17 06:31 Ur Specific [place] 1.018 (1.001-1.035) 06/04/17 06:31 Urine Protein 1+ (Negative) H 06/04/17 06:31 Urine Glucose (UA) Negative (Negative) 06/04/17 06:31 Urine Ketones Negative (Negative) 06/04/17 06:31 Urine Blood Negative (Negative) 06/04/17 06:31 Urine Nitrite Negative (Negative) 06/04/17 06:31 Urine Bilirubin Negative (Negative) 06/04/17 06:31 Urine Urobilinogen 2.0 mg/dL (<2.0) 06/04/17 06:31 Ur Leukocyte Esterase Negative (Negative) 06/04/17 06:31 Urine RBC <1 /hpf (0-5) 06/04/17 06:31 Urine WBC 1 /hpf (0-5) 06/04/17 06:31 Ur Squamous Epith Cells <1 /hpf (0-4) 06/04/17 06:31 Amorphous Sediment Occasional /hpf (None) H 06/04/17 06:31 Hyaline Casts 7 /lpf (0-2) H 06/04/17 06:31 Urine Mucus Occasional /hpf (None) H 06/04/17 06:31 Vancomycin Trough 12.4 ug/mL 06/06/17 05:42 Influenza Type A RNA Not Detected (Not Detectd) 06/04/17 06:26 Influenza Type B (PCR) Not Detected (Not Detectd) 06/04/17 06:26 Microbiology 06/04/17 06:08 Blood Blood Culture - Final No Growth after 144 hours 06/04/17 07:40 Sputum Gram Stain - Final 06/04/17 07:40 Sputum Sputum Culture - Final Aspergillus fumigatus Assessment and Plan (1) Respiratory failure with hypoxia and hypercapnia Current Visit: Yes Status: Acute Code(s): J96.91 - RESPIRATORY FAILURE, UNSPECIFIED WITH HYPOXIA; J96.92 - RESPIRATORY FAILURE, UNSPECIFIED WITH HYPERCAPNIA SNOMED Code(s): 58966693 (2) Aspergillus Narrative/Plan: Pleasant 72-year-old female presents to Hospital with evidence of respiratory failure and required short-term intubation and sedation mechanical ventilation. She has now been extubated and is showing some improvement. She has a chronic shortness of breath that she relates is nearly to baseline. She says her significant chronic skin disorder from her chronic steroid use. Nothing is open and draining at this time. She did have computed tomography scan at admission that shows evidence of a bit of pneumonia. No evidence of any cavitary disease or fungus ball. Isolation of Aspergillus from the sputum in a patient on chronic steroid therapy is common and not indicative of deep disease. The patient should have computed tomography scan findings consistent with Aspergillus to initiate any further workup. At this time since she does not have significant findings would not proceed with lung biopsy which would be required to diagnose aspergillosis in this type of situation. She is not in need of any antifungal therapy. Patient fortunately is improving and will be transitioned to oral antimicrobial therapy to complete the treatment of her pneumonia with Augmentin. Current Visit: Yes Status: Acute Code(s): B44.9 - ASPERGILLOSIS, UNSPECIFIED SNOMED Code(s): 11553573
--- NOTE | 2017-06-13 23:34 | PN ---
PROGRESS NOTE DATE OF SERVICE: 06/13/2017. ATTENDING NOTE: The patient seen and examined by me. I discussed with my nurse practitioner, Ms. Conner. The patient with end-stage COPD, still remains short of breath. No cough. Tolerating a diet. Looking at going to the rehab. EXAMINATION: Temperature 98, pulse 98, respirations 22, blood pressure 123/55, pulse ox 92% on 3L. LUNGS: Diminished breath sounds. Prolonged expiration. Anxious, diffuse bruising. INVESTIGATIONS: No blood work from today. ASSESSMENT: 1. End-stage chronic obstructive pulmonary disease exacerbation, slow to respond. 2. Multiple other medical problems. 3. Patient wishes to remain FULL CODE. The patient is on Augmentin, DuoNeb, IV Solu-Medrol. Prognosis guarded. Looking at patient going to the ECF. AUBRIE / ARMANDO: [id number] /
[2017-06-14] MEDS: IPRATROPIUM-ALBUTEROL 3 ML NEB INHALATION SCH ×4 (03:24→15:42)
[2017-06-14] MEDS: BUDESONIDE 1 MG/2 ML NEBU INHALATION SCH (06:59)
[2017-06-14] MEDS: FORMOTEROL FUMARATE 20 MCG/2 ML NEBU INHALATION SCH (06:59)
[2017-06-14] MEDS: AMOXIC-POT CLAV 875-125MG 1 EACH TAB PO SCH (08:06)
[2017-06-14] MEDS: THEOPHYLLINE 24 HOUR 300 MG CAP.ER.24H PO SCH (08:06)
[2017-06-14] MEDS: methylPREDNISolone SOD SUCCI 40 MG/ML 1 ML VIAL IV SCH (08:06)
[2017-06-14] MEDS: ISOSORBIDE MONONITRATE ER 30 MG TAB.ER.24H PO SCH (08:06)
[2017-06-14] MEDS: DILTIAZEM ORAL 30 MG TAB PO SCH ×2 (08:06→15:48)
[2017-06-14] MEDS: NYSTATIN 100,000 UNIT/ML SUSP 500,000 UNIT/5 ML CUP PO SCH ×2 (08:06→13:04)
[2017-06-14] MEDS: LISINOPRIL 20 MG TAB PO SCH (08:06)
[2017-06-14] MEDS: FUROSEMIDE 20 MG TAB PO SCH (08:07)
[2017-06-14] MEDS: SENNOSIDES 8.6 MG TAB PO SCH ×2 (08:07→08:15)
[2017-06-14] MEDS: PANTOPRAZOLE 40 MG TABLET PO SCH (08:07)
[2017-06-14] MEDS: ALPRAZolam 0.25 MG TAB PO PRN (08:44)
[2017-06-14 08:52] LABS: Anion Gap 4 mmol/L; Blood Urea Nitrogen 26 mg/dL (7-17); Calcium 8.7 mg/dL (8.4-10.2); Carbon Dioxide 37 mmol/L (22-30); Chloride 95 mmol/L (98-107); Glucose 87 mg/dL (74-99); Potassium 4.1 mmol/L (3.5-5.1); Sodium 136 mmol/L (137-145)
[2017-06-14] MEDS ORDERED: ACETAMINOPHEN TAB 325 MG TAB PO PRN (09:47)
[2017-06-14] MEDS: SODIUM CHLORIDE 0.9% 1,000 ML IV SCH (12:59)
--- NOTE | 2017-06-14 15:10 | P.PN ---
Subjective Progress Note Date: 06/14/17 Principal diagnosis: Acute on chronic hypoxic and hypercapnic respiratory failure This is a 72-year-old female patient who follows with Dr. Cummings as her primary care physician. She has a history of hypertension. She also has a history of severe oxygen dependent, steroid dependent chronic obstructive pulmonary disease, Gold stage III/IV with FEV1 value of 33% of predicted. She' s been maintained on Combivent, Spiriva, theophylline and albuterol in the outpatient setting. She was just discharged from here on 06/01/2017 for another acute exacerbation admission. She had been admitted at least 4 times in the last 6 months for her COPD exacerbations. She presented to the emergency room this morning approximate 6 AM via EMS with severe respiratory distress. She was quite tachypneic in the 40s, tachycardic and hypoxic. She was given 2 DuoNeb treatments without much improvement. By the time she arrived to the emergency room she was obtunded with agonal respirations. She was subsequently intubated and placed on mechanical ventilator. She is seen today in the intensive care unit. Current vent settings assist control of 16 title volume 400 FiO2 of 50% and a PEEP of 5. Initial blood gases on 100% FiO2 revealed a pO2 of 390, pCO2 61, pH 7.34. She is sedated with propofol currently at 30 mcg/kg/m. She is receiving a second ointment saline bolus. She was given cefepime and vancomycin. Chest x-ray reveals changes of chronic obstructive pulmonary disease but no acute pulmonary process. White count 12.8. Bicarb 41. Potassium 6.1. Creatinine 0.64. Lactic acid 1.2. ProBNP 544. Influenza screen is negative. She does arouse to tactile stimuli. The patient was seen again today 06/05/2017 in follow-up in the intensive care unit. She remains intubated and on the mechanical ventilator. Current settings assist control of 16, tidal volume 400, FiO2 35% and a PEEP of 5. Morning blood gases reveal pO2 of 88, pCO2 41, pH 7.46. She is arousable to verbal stimuli. She is following simple commands on 40 mics of propofol. She remained afebrile. Hemodynamically stable. Not requiring any pressors. Blood culture reveals no growth. Sputum Culture pending. White count 7.0. Hemoglobin 10.8. Creatinine 0.50. The patient was seen again today 06/06/2017 in follow-up in the intensive care unit. She is awake and alert in no acute distress. She is maintaining O2 saturations in the 90s on 3 L/m per nasal cannula. She did realize the BiPAP throughout the evening last night. She denies any worsening shortness of breath. Still not near her baseline. She is quite dyspneic even on conversation. Her chest x-ray showed some left lower lobe atelectasis/ infiltrate. She did have a sputum positive for Aspergillus species. A follow- up computed tomography scan of the chest revealed small bilateral pleural effusions right greater than left with associated bibasilar subtle segmental atelectasis. There is a new patchy left upper lobe groundglass opacity. No clear evidence of cavitating lesion or fungal ball. She is currently afebrile. No leukocytosis. Creatinine 0.50. Hemodynamically stable. On 06/07/2017 patient is seen again in the intensive care. She is moderately dyspneic at rest, requires BiPAP support at night, becomes more dyspneic with any type of exertion, even getting bed bath. She is noted to be more tachycardic today, she is in sinus tachycardia with a rate of 120 BPM. Last night she was reportedly hypertensive with systolic as high as 190 mmHg. Lung sounds are generally diminished, with tight faint expiratory wheezes bilaterally. She wears 3 L of oxygen per nasal cannula with O2 sat at 90-92%. This morning her blood pressures 148/59. Chest x-ray was reviewed, and shows basilar patchy densities which appear slightly improved from previous exams. Remains afebrile. Lab work was reviewed, no evidence of leukocytosis, with W VC of 7.3, hemoglobin is stable at 12, serum sodium is 140, serum potassium is 3.8, carbon dioxide is 36, B1 is 29, and creatinine is 0.60. Yesterday we consulted ID service for evidence of Aspergillus fumigators in the sputum culture, antifungal agents were indicated per ID service recommendations. CT chest was obtained, and shows new small bilateral pleural effusions, right greater than the left with associated bibasilar segmental dependent atelectasis. And new patchy left upper lobe groundglass opacity that could be inflammatory, infectious or represent early developing neoplasm, follow-up will be needed. Also findings favoring pulmonary fibrosis superimposed on background of extensive centrilobular emphysematous changes. On 06/10/2017 patient is seen in follow-up on medical surgical floor. She is really resting in bed, remains and mild to moderate amount of dyspnea even at rest. Lung sounds are positive for a few faint wheezes, generally diminished bilaterally. She did not wear the BiPAP last night, she states she is trying to wean herself off of it. She would like to start ambulating to the bathroom versus just using the bedside commode, she is hoping she'll be able to do that today. Was advised to have assistance and supervision with any type of ambulation, related to her very marginal respiratory status. But overall she is making very slow progress. Remains afebrile, hemodynamically stable, on 3 L per nasal cannula satting 97%. Microbiology results have been reviewed, blood cultures show no growth. Sputum culture from 06/04/2017 showed Aspergillus fumigatos. Patient continues on nebulized treatments, Solu-Medrol, antibiotics. On 06/11/2017 patient seen again in follow-up on medical surgical floor. Remains very marginal in terms of her exercise capacity, becomes very dyspneic with any type of exertion, this morning she required short amount of time on BiPAP support for respiratory fatigue. Lung sounds remain very diminished, with scattered wheezing, patient still has the congestive cough. Vital signs stable, patient is afebrile, hemodynamically stable, currently on 3 L per nasal cannula, normally wears 2 L at home. Continues on bronchodilators, nebulized treatments, Solu-Medrol, theophylline. Continues on Augmentin. Discharge planning is in progress for subacute rehab, but patient wants to go home. Code Status was discussed with her today, patient wants to remain a full code, despite her end-stage COPD, very poor lung function and severe limitation of exercise capacity. Patient has been intubated twice now for COPD exacerbation, he states she does not mind the intubation and mechanical ventilation events with needed. Does understand that there may be a time where a tracheostomy will be required and patient may become vent dependent. On 06/12/2017 patient seen in follow-up. She did not require BiPAP support last night, lung sounds are still positive for scattered wheezes, but this is somewhat improved from yesterday. Still remains very dyspneic with exertion, such as going to the bathroom or taken a shower. is currently down to 2 L, with O2 sat at 96%. Afebrile, no new positive cultures other than the sputum culture from 06/04/2017 with evidence of Aspergillus. patient is improving, and was transitioned to oral Augmentin. We attempted to qualify her for BiPAP for her diagnoses of advanced COPD, unfortunately her blood gas results do not qualify her for it, her pCO2 was 52, and the requirements is pCO2 of 55 or higher. On 06/13/2017 patient seen in follow-up. Resting in bed, in no acute distress. Lung sounds are still positive for diffuse wheezes, worse with any exertion. Yesterday we talked to her about subacute rehab, and patient agreed for short- term subacute rehab placement. She remains afebrile, vital signs are stable. Yesterday she was able to shower and get cleaned up with assistance. She is trying to gradually increase her activity, still requires frequent periods of rest to recover from exertional dyspnea. No new growth on the cultures, other than the sputum culture that was positive for Aspergillus. Antibiotics per ID service. Patient remains stable from pulmonary standpoint, and can be discharged to subacute rehab today. No acute events overnight. On 06/14/2017 patient is seen in follow-up. Her main stable from pulmonary standpoint, still becomes dyspneic with exertion, lung sounds are improved, there are still scattered wheezes, but this is improved from previous exams. She remains on 2 L per nasal cannula with O2 sat 97%. Remains afebrile, vital signs are stable. She is ambulating to the bathroom, does require periods of rest. From pulmonary standpoint is stable for discharge to [facility] today. Objective - Vital Signs Vital signs: Vital Signs Temp 97.1 F L 06/14/17 07:00 Pulse 85 06/14/17 11:18 Resp 20 06/14/17 11:08 BP 129/66 06/14/17 07:00 Pulse Ox 97 06/14/17 07:00 Intake & Output 06/13/17 06/14/17 06/14/17 18:59 06:59 18:59 Other: # Voids 5 3 - Exam GENERAL EXAM: Frail, cachectic. Alert, in no acute distress. HEAD: Normocephalic. EYES: Sluggish reaction of pupils, unequal size. NOSE: Clear with pink turbinates. THROAT: No erythema or exudates. NECK: No masses, no JVD. CHEST: No chest wall deformity. LUNGS: Equal air entry with scattered end expiratory wheezes, diminished overall. CVS: S1 and S2 normal with no audible murmur, regular rhythm. ABDOMEN: No hepatosplenomegaly, normal bowel sounds, no guarding or rigidity. SPINE: No scoliosis or deformity SKIN: Multiple areas of ecchymosis nonhealing wounds. Thin frail secondary to chronic steroids. CENTRAL NERVOUS SYSTEM: Sedated. EXTREMITIES: There is no peripheral edema. No clubbing, no cyanosis. Peripheral pulses are intact. - Labs CBC & Chem 7: 06/10/17 08:20 06/14/17 07:46 Labs: Abnormal Lab Results - Last 24 Hours (Table) 06/14/17 Range/Units 07:46 Sodium 136 L (137-145) mmol/L Chloride 95 L (98-107) mmol/L Carbon Dioxide 37 H (22-30) mmol/L BUN 26 H (7-17) mg/dL Creatinine 0.45 L (0.52-1.04) mg/dL Assessment and Plan Plan: Assessment: #1 Acute on chronic hypoxic and hypercapnic respiratory failure requiring intubation mechanical ventilatory support secondary to severe oxygen dependent, steroid dependent, Gold stage III/IV chronic obstructive pulmonary disease with FEV1 value of 33% of predicted. Patient was successfully extubated on 2017, tolerating it well so far, with intermittent BiPAP support. #2 Chronic hypoxic and hypercapnic respiratory failure with multiple admissions of exacerbations. #3 Hyperkalemia. #4 History of hypertension. #5 Hyperlipidemia. #6 Osteoporosis. #7 Poor overall functional performance based on the above-mentioned multiple comorbidities. #8 Aspergillosis, unspecified. Was seen by ID service, it was felt that isolation of Aspergillus from the sputum and the patient on chronic steroid therapy is common, and is not indicative of deep disease. At this time there are no significant findings to prompt lung biopsy or initiation of any antifungal therapy. Plan: Overall patient is stable from pulmonary standpoint, slow improvement, she has been walking to the bathroom, still requires frequent periods of rest to recover from dyspnea. But no acute events overnight, vital signs are stable, patient is on 2 L per nasal cannula, this is her home dose oxygen. No new growth on the cultures. Antibiotics per ID service. She is stable for discharge to subacute rehab today from pulmonary standpoint. Follow-up with Dr. Parker in the office in one week. I performed a history & physical examination of the patient and discussed their management with my nurse practitioner, Chani Toney. I reviewed the nurse practitioner's note and agree with the documented findings and plan of care. Lung sounds are positive for tight expiratory wheezes bilaterally. The findings and the impression was discussed with the patient. I attest to the documentation by the nurse practitioner. Time with Patient: Less than 30
[2017-06-14 15:30] VITALS: BP 120/57; RESP 18; TEMP 96.9
[2017-06-14 15:46] VITALS: PULSE 89
--- NOTE | 2017-06-14 15:59 | DS ---
DISCHARGE SUMMARY DATE OF ADMISSION: 06/04/2017. DATE OF DISCHARGE: 06/14/2017 FINAL DIAGNOSES: 1. Acute severe end-stage chronic obstructive pulmonary disease exacerbation, acute tracheobronchitis. 2. Acute on chronic hypoxic and hypercarbic respiratory failure, status post mechanical ventilation from underlying chronic obstructive pulmonary disease. 3. End-stage chronic obstructive pulmonary disease. 4. Normocytic anemia, cause unknown. 5. Essential hypertension, uncontrolled. 6. Hyperlipidemia. 7. Hypoalbuminemia as an acute-phase reactant. 8. Medical debility secondary to chronic obstructive pulmonary disease. HOSPITAL COURSE: This patient with advanced COPD presented with COPD exacerbation and was intubated. We had multiple discussions with the patient, including the communication equipment mechanic, but patient wants to remain FULL CODE. Patient did use BiPAP intermittently. Remains short of breath at rest. PHYSICAL EXAMINATION: On examination, decreased breath sounds. Expiratory wheezing. Diffuse bruising. Prognosis is not good. CONSULTATIONS: 1. Dr. Rosa, Infectious Disease. 2. Dr. Parker from Pulmonary. DISCHARGE MEDICATIONS: 1. ProAir 2 puffs q.4 p.r.n. 2. Imdur ER 30 mg p.o. daily. 3. Theophylline-24 300 mg p.o. daily. 4. Zestril 20 mg b.i.d. 5. Lasix 20 mg q.48 hours. 6. Symbicort 160/4.5 two puffs b.i.d. 7. Perforomist 20 mcg inhalation b.i.d. 8. Protonix 40 mg a day. 9. Xanax 0.25 p.o. t.i.d. 10.Pulmicort 1 mg nebulizer b.i.d. 11.Cardizem 30 mg p.o. t.i.d. 12.DuoNeb q.4. 13.Mycostatin 500,000 units p.o. q.i.d. 14.Senokot 8.6 mg b.i.d. 15.Nasal spray saline q.i.d. p.r.n. 16.Prednisone taper. Follow up with Dr. Parker in one week. Follow up with Dr. Cummings after [facility] from the [facility]. Follow with Dr. Arevalo at [facility]. DISPOSITION: [facility] with oxygen 2 L. Prognosis is guarded. CODE STATUS FULL. MMODL / IJN: [id number] /
== END 2017-06-14 17:53 | DRG 208 ==
LOC: EC 05:59 → 6ICU 06:30 → 4MS4W 06-08 16:50
PROVIDERS: ADMIT Hospitalist; ATTEND Hospitalist
PROC: 0BH17EZ Insertion of Endotracheal Airway into Trachea, Via Natural or Artificial Opening (ICD-10-PCS; principal; 2017-06-04)
PROC: 5A1935Z Respiratory Ventilation, Less than 24 Consecutive Hours (ICD-10-PCS; 2017-06-04)
DX: J96.22 Acute and chronic respiratory failure with hypercapnia (principal); B44.9 Aspergillosis, unspecified; J18.9 Pneumonia, unspecified organism; J44.0 Chronic obstructive pulmonary disease with (acute) lower respiratory infection; J44.1 Chronic obstructive pulmonary disease with (acute) exacerbation; E87.5 Hyperkalemia; Z99.81 Dependence on supplemental oxygen; J84.10 Pulmonary fibrosis, unspecified; J20.9 Acute bronchitis, unspecified; J96.21 Acute and chronic respiratory failure with hypoxia; M81.0 Age-related osteoporosis without current pathological fracture; I10 Essential (primary) hypertension; D50.9 Iron deficiency anemia, unspecified; R00.0 Tachycardia, unspecified; F41.9 Anxiety disorder, unspecified; E78.5 Hyperlipidemia, unspecified; T38.0X5A Adverse effect of glucocorticoids and synthetic analogues, initial encounter; L98.9 Disorder of the skin and subcutaneous tissue, unspecified; Z88.8 Allergy status to other drugs, medicaments and biological substances; Z88.1 Allergy status to other antibiotic agents; Z91.040 Latex allergy status; Z79.51 Long term (current) use of inhaled steroids; Z79.899 Other long term (current) drug therapy; Z82.49 Family history of ischemic heart disease and other diseases of the circulatory system; Z87.891 Personal history of nicotine dependence; Z98.51 Tubal ligation status; Z87.01 Personal history of pneumonia (recurrent); Z87.440 Personal history of urinary (tract) infections; Z86.69 Personal history of other diseases of the nervous system and sense organs; Z79.52 Long term (current) use of systemic steroids
CPT/HCPCS: 31500; 36415; 36600; 71045; 71250; 80048; 80053; 80202; 81001; 82550; 82553; 82805; 83036; 83605; 83735; 83880; 84100; 84484; 85025; 85610; 85730; 87040; 87070; 87205; 87502; 93005; 94002; 94003; 94640; 94644; 94660; 94760; 96365; 96367; 96368; 96375; 99291

== ENCOUNTER 2017-06-16 07:06 | Inpatient (IN) | payer MEDICARE ==
[2017-06-16] MEDS ORDERED: MAGNESIUM SULFATE-D5W PMX 1 GM in DEXTROSE/WATER 1 100ML.BAG IVPB STA (07:17)
[2017-06-16] MEDS ORDERED: methylPREDNISolone SOD SUCCI 125 MG/2 ML VIAL IV STA (07:17)
[2017-06-16] MEDS ORDERED: SODIUM CHLORIDE 0.9% 500 ML IV STA ×2 (07:17→08:46)
[2017-06-16] MEDS ORDERED: SODIUM CHLORIDE 0.9% 1,000 ML IV STA (07:17)
[2017-06-16] MEDS ORDERED: IPRATROPIUM-ALBUTEROL 3 ML NEB INHALATION STA (07:17)
--- NOTE | 2017-06-16 07:22 | ED ---
SOB HPI - General Chief Complaint: Shortness of Breath Stated Complaint: SOB Time Seen by Provider: 06/16/17 07:06 Source: patient, EMS, RN notes reviewed Mode of arrival: EMS Limitations: no limitations - History of Present Illness Initial Comments: Is a 72-year-old female history of COPD and multiple recent admissions for the same as well as respiratory failure with oral tracheal intubation be needed recently who is back today with complaints of shortness of breath and apparently started last night. She was brought in by EMS. She was referred breath with a cough she was noted upon arrival to have Temperature 100.9. She denies any chest pain she did receive a updraft in route with minimal results. MD Complaint: shortness of breath, cough - Related Data Home Medications Medication Instructions Recorded Confirmed Albuterol Sulfate [Proair Hfa] 2 puff INHALATION RT-Q4H PRN 10/29/13 06/16/17 Isosorbide Mononitrate ER [Imdur] 30 mg PO DAILY 10/29/13 06/16/17 Theophylline 24 Hour [Benigno-24] 300 mg PO DAILY 10/29/13 06/16/17 Lisinopril [Zestril] 20 mg PO BID 09/23/15 06/16/17 Furosemide [Lasix] 20 mg PO Q48H 12/16/16 06/16/17 Budesonide/Formoterol Fumarate 2 puff INHALATION RT-BID 05/29/17 06/16/17 [Symbicort 160-4.5 Mcg Inhaler] Amoxic-Pot Clav 875-125Mg 1 tab PO Q12HR 06/16/17 06/16/17 [Augmentin 875-125] Bisacodyl [Dulcolax] 10 mg RECTAL DAILY PRN 06/16/17 06/16/17 Cholecalciferol [Vitamin D3] 2,000 unit PO DAILY@1700 06/16/17 06/16/17 Ipratropium-Albuterol Nebulize 3 ml INHALATION RT-QID 06/16/17 06/16/17 [Duoneb 0.5 mg-3 mg/3 ml Soln] Ipratropium/Albuterol Sulfate 2 puff INHALATION RT-QID 06/16/17 06/16/17 [Combivent Respimat Inhaler] Magnesium Hydroxide [Milk of 2,400 mg PO DAILY PRN 06/16/17 06/16/17 Magnesia] Na Phos,M-B/Na Phos,Di-Ba [Fleet 133 ml RECTAL DAILY PRN 06/16/17 06/16/17 Adult] Previous Rx's Medication Instructions Recorded Formoterol Fumarate [Perforomist] 20 mcg INHALATION RT-BID #1 nebu 06/01/17 Pantoprazole [Protonix] 40 mg PO AC-BRKFST #30 tablet. 06/01/17 ALPRAZolam [Xanax] 0.25 mg PO TID #20 tab 06/14/17 Nystatin 100,000 Unit/ml Susp 500,000 unit PO QID cup 06/14/17 [Mycostatin Oral Susp] Allergies Allergy/AdvReac Type Severity Reaction Status Date / Time alendronate sodium Allergy Swelling Verified 06/16/17 08:30 [From Fosamax] Latex, Natural Rubber Allergy Rash/Hives Verified 06/16/17 08:30 levofloxacin [From Levaquin] AdvReac Diarrhea Verified 06/16/17 08:30 Review of Systems ROS Statement: Those systems with pertinent positive or pertinent negative responses have been documented in the HPI. ROS Other: All systems not noted in ROS Statement are negative. Past Medical History Past Medical History: Asthma, COPD, Eye Disorder, Hyperlipidemia, Hypertension, Pneumonia, Respiratory Disorder, Skin Disorder Additional Past Medical History / Comment(s): Pt recently admitted 05/29/17 with acute on chronic hypercapnic and hypoxic respiratory failure. Other Hx; Advanced oxygen and steroid dependent, chronic hypoxic and hypercapnic respiratory failure, vented once in past, acute on chronic hypercapnic respiratory failure, bronchitis, cataracts/glaucoma bilaterally, previous UTI, hyponatremia, migraines but none for years, hepatitis A as a child , hemorrhoids , osteoporosis, fragile skin. History of Any Multi-Drug Resistant Organisms: None Reported Past Surgical History: Tubal Ligation Additional Past Surgical History / Comment(s): Bilateral eye surgery-daughter thinks it was for glaucoma. Past Anesthesia/Blood Transfusion Reactions: No Reported Reaction Additional Past Anesthesia/Blood Transfusion Reaction / Comment(s): Pt has never recieved blood. Additional Psychological History / Comment(s): Patient has progressive COPD that is steroid and oxygen dependent. Smoking Status: Former smoker - Past Family History Father History Unknown: Yes Family Medical History: No Reported History Additional Family Medical History / Comment(s): Father when pt was young. Mother Family Medical History: Coronary Artery Disease (CAD), Myocardial Infarction ([place] ) Additional Family Medical History / Comment(s): Mother had CABG General Exam - General Exam Comments Initial Comments: This is a well-developed asthenic appearing female who is in obvious respiratory distress she is awake and alert however. Limitations: no limitations General appearance: alert, anxious, in distress Head exam: Present: atraumatic, normocephalic, normal inspection Eye exam: Present: normal appearance, PERRL, EOMI. Absent: scleral icterus, conjunctival injection, periorbital swelling ENT exam: Present: mucous membranes dry Neck exam: Present: normal inspection. Absent: tenderness, meningismus, lymphadenopathy Respiratory exam: Present: wheezes, rhonchi, accessory muscle use, decreased breath sounds. Absent: respiratory distress, rales, stridor Cardiovascular Exam: Present: normal rhythm, tachycardia, normal heart sounds. Absent: systolic murmur, diastolic murmur, rubs, gallop, clicks GI/Abdominal exam: Present: soft, normal bowel sounds. Absent: distended, tenderness, guarding, rebound, rigid Extremities exam: Present: normal inspection, full ROM, normal capillary refill. Absent: tenderness, pedal edema, joint swelling, calf tenderness Back exam: Present: normal inspection Neurological exam: Present: alert, oriented X3, CN II-XII intact Psychiatric exam: Present: normal affect, normal mood Skin exam: Present: warm, dry, other (Multiple areas of ecchymosis and bruising also some skin slippages). Absent: rash Course Vital Signs 06/16/17 06/16/17 06/16/17 07:08 07:15 07:34 Temperature 100.9 F H Pulse Rate 111 H 102 H Respiratory 32 H 32 H 36 H Rate Blood Pressure 239/102 224/100 O2 Sat by Pulse 99 92 L Oximetry 06/16/17 06/16/17 06/16/17 07:51 07:52 08:04 Temperature Pulse Rate 92 95 99 Respiratory 20 32 H 20 Rate Blood Pressure 189/101 O2 Sat by Pulse 94 L Oximetry 06/16/17 06/16/17 08:20 10:19 Temperature 98.3 F Pulse Rate 91 94 Respiratory 26 H 26 H Rate Blood Pressure 137/61 121/59 O2 Sat by Pulse 99 99 Oximetry - Reevaluation(s) Reevaluation #1: 06/16/17 10:46 Reevaluation the patient after the initial presentation shows she still dyspneic she did require another updraft treatment IV steroids IV magnesium. Reevaluation #2: 06/16/17 10:46 The patient was placed on BiPAP and this did seem to help her remarkably. Medical Decision Making - Medical Decision Making Patient seems seriously more comfortably and in her respiratory status has improved. She will be admitted - Lab Data Result diagrams: 06/16/17 07:10 06/16/17 07:40 Lab Results 06/16/17 06/16/17 06/16/17 Range/Units 07:10 07:10 07:10 WBC 11.9 H (3.8-10.6) k/uL RBC 4.49 (3.80-5.40) m/uL Hgb 14.4 (11.4-16.0) gm/dL Hct 45.1 (34.0-46.0) % MCV 100.6 H (80.0-100.0) fL MCH 32.1 (25.0-35.0) pg MCHC 31.9 (31.0-37.0) g/dL RDW 14.9 (11.5-15.5) % Plt Count 205 (150-450) k/uL Neutrophils % 85 % Lymphocytes % 9 % Monocytes % 5 % Eosinophils % 0 % Basophils % 1 % Neutrophils # 10.0 H (1.3-7.7) k/uL Lymphocytes # 1.0 (1.0-4.8) k/uL Monocytes # 0.6 (0-1.0) k/uL Eosinophils # 0.0 (0-0.7) k/uL Basophils # 0.1 (0-0.2) k/uL Macrocytosis Slight PT 9.7 (9.0-12.0) sec INR 1.0 (<1.2) APTT 23.0 (22.0-30.0) sec D-Dimer 1.69 H (<0.60) mg/L FEU Sodium (137-145) mmol/L Potassium (3.5-5.1) mmol/L Chloride (98-107) mmol/L Carbon Dioxide (22-30) mmol/L Anion Gap mmol/L BUN (7-17) mg/dL Creatinine (0.52-1.04) mg/dL Est GFR (MDRD) Af Amer (>60 ml/min/1.73 sqM) Est GFR (MDRD) Non-Af (>60 ml/min/1.73 sqM) Glucose (74-99) mg/dL Calcium (8.4-10.2) mg/dL Magnesium (1.6-2.3) mg/dL Total Bilirubin (0.2-1.3) mg/dL AST (14-36) U/L ALT (9-52) U/L Alkaline Phosphatase (38-126) U/L Total Creatine Kinase (30-135) U/L CK-MB (CK-2) (0.0-2.4) ng/mL CK-MB (CK-2) Rel Index Troponin I (0.000-0.034) ng/mL NT-Pro-B Natriuret Pep 202 pg/mL Total Protein (6.3-8.2) g/dL Albumin (3.5-5.0) g/dL 06/16/17 06/16/17 Range/Units 07:40 07:40 WBC (3.8-10.6) k/uL RBC (3.80-5.40) m/uL Hgb (11.4-16.0) gm/dL Hct (34.0-46.0) % MCV (80.0-100.0) fL MCH (25.0-35.0) pg MCHC (31.0-37.0) g/dL RDW (11.5-15.5) % Plt Count (150-450) k/uL Neutrophils % % Lymphocytes % % Monocytes % % Eosinophils % % Basophils % % Neutrophils # (1.3-7.7) k/uL Lymphocytes # (1.0-4.8) k/uL Monocytes # (0-1.0) k/uL Eosinophils # (0-0.7) k/uL Basophils # (0-0.2) k/uL Macrocytosis PT (9.0-12.0) sec INR (<1.2) APTT (22.0-30.0) sec D-Dimer (<0.60) mg/L FEU Sodium 135 L (137-145) mmol/L Potassium 4.1 (3.5-5.1) mmol/L Chloride 94 L (98-107) mmol/L Carbon Dioxide 37 H (22-30) mmol/L Anion Gap 4 mmol/L BUN 23 H (7-17) mg/dL Creatinine 0.44 L (0.52-1.04) mg/dL Est GFR (MDRD) Af Amer >60 (>60 ml/min/1.73 sqM) Est GFR (MDRD) Non-Af >60 (>60 ml/min/1.73 sqM) Glucose 116 H (74-99) mg/dL Calcium 8.4 (8.4-10.2) mg/dL Magnesium 2.3 (1.6-2.3) mg/dL Total Bilirubin 0.7 (0.2-1.3) mg/dL AST 31 (14-36) U/L ALT 73 H (9-52) U/L Alkaline Phosphatase 51 (38-126) U/L Total Creatine Kinase 26 L (30-135) U/L CK-MB (CK-2) 1.4 (0.0-2.4) ng/mL CK-MB (CK-2) Rel Index 5.4 Troponin I 0.020 (0.000-0.034) ng/mL NT-Pro-B Natriuret Pep pg/mL Total Protein 5.9 L (6.3-8.2) g/dL Albumin 3.3 L (3.5-5.0) g/dL - Radiology Data Radiology results: report reviewed (I did review the imaging and reports no acute findings.), image reviewed Critical Care Time Critical Care Time: Yes Critical Care Time: 39 minutes of critical care time which includes monitoring EMS run and discussed with paramedics history physical labs x-rays multiple re-evaluations the patient. Review of old charting. Discussion with the admitting physician admission orders and documentation of the above. Disposition Clinical Impression: Acute exacerbation of chronic obstructive airways disease, Adult respiratory distress syndrome, Febrile illness, acute Disposition: ADMITTED IP TO THIS HOSP Condition: Stable Referrals: Perry Arevalo DO [Primary Care Provider] - 1-2 days
[2017-06-16 07:29] LABS: Basophils # (A) 0.1 k/uL (0-0.2); Basophils % (A) 1 %; Eosinophils % (A) 0 %; HCT 45.1 % (34.0-46.0); HGB 14.4 gm/dL (11.4-16.0); Lymphocytes % (A) 9 %; MCH 32.1 pg (25.0-35.0); MCHC 31.9 g/dL (31.0-37.0); MCV 100.6 fL (80.0-100.0); Macrocytosis Slight; Mean Platelet Volume 8.8; Monocytes # (A) 0.6 k/uL (0-1.0); Monocytes % (A) 5 %; Neutrophils % (A) 85 %; Platelet Count 205 k/uL (150-450); RBC 4.49 m/uL (3.80-5.40); RDW 14.9 % (11.5-15.5); WBC 11.9 k/uL (3.8-10.6)
[2017-06-16 07:42] LABS: D-Dimer 1.69 mg/L FEU (<0.60)
--- NOTE | 2017-06-16 07:55 | XR ---
EXAMINATION TYPE: XR chest 2V DATE OF EXAM: 06/16/2017 HISTORY: difficulty breathing. REFERENCE: Previous study dated 06/10/2017. FINDINGS: The lungs are overinflated. There are senescent changes throughout the lungs. There is no p neumonia or edema. The heart is not enlarged. Pleural spaces are clear. IMPRESSION: COPD.
[2017-06-16 08:07] LABS: Prothrombin Time 9.7 sec (9.0-12.0)
[2017-06-16 08:28] LABS: Albumin 3.3 g/dL (3.5-5.0); Anion Gap 4 mmol/L; Calcium 8.4 mg/dL (8.4-10.2); Carbon Dioxide 37 mmol/L (22-30); Chloride 94 mmol/L (98-107); Glucose 116 mg/dL (74-99); Sodium 135 mmol/L (137-145); Total Bilirubin 0.7 mg/dL (0.2-1.3); Total Protein 5.9 g/dL (6.3-8.2)
[2017-06-16 08:31] LABS: ALT 73 U/L (9-52); AST 31 U/L (14-36); Alkaline Phosphatase 51 U/L (38-126); Blood Urea Nitrogen 23 mg/dL (7-17); Magnesium 2.3 mg/dL (1.6-2.3); Potassium 4.1 mmol/L (3.5-5.1)
[2017-06-16 08:40] LABS: Creatine Kinase MB 1.4 ng/mL (0.0-2.4); Troponin I 0.02 ng/mL (0.000-0.034)
[2017-06-16] MEDS ORDERED: RX INFO: IV CONTRAST WAS GIVEN 1 EACH MISC MISCELLANE PRN (08:46)
--- NOTE | 2017-06-16 09:57 | CT ---
EXAMINATION TYPE: CT angio chest DATE OF EXAM: 06/16/2017 9:43 AM COMPARISON: Previous study dated 06/06/2017 HISTORY: Chest pain and difficulty breathing. CT DLP: 141.50 mGycm Automated exposure control for dose reduction was used. CONTRAST: CTA scan of the thorax is performed with IV Contrast, patient injected with 100 ml mL of Omnipaque 35 0, pulmonary embolism protocol. . FINDINGS: There are bullous emphysematous changes in both lungs. There is groundglass opacity in the left upper lobe. This has worsened and may represent ongoing alveolitis or pneumonitis. There is no significant axillary or internal mammary adenopathy. There is some shotty mediastinal and hilar adenopathy. There is no evidence of pulmonary embolus. The aorta is normal in caliber without evidence of dissection. The heart is not enlarged. There is no pleural or pericardial fluid. There is evidence of old granulomatous disease in the spleen. Visualized portions of the upper abdome n are otherwise normal. There is stable wedging of the T4 vertebral body. IMPRESSION: 1. THIS EXAMINATION IS NEGATIVE FOR PULMONARY EMBOLUS. 2. BULLOUS EMPHYSEMATOUS CHANGE. 3. NONSPECIFIC MEDIASTINAL AND HILAR ADENOPATHY. 4. EVIDENCE OF OLD GRANULOMATOUS DISEASE IN THE SPLEEN. 5. STABLE WEDGING OF THE T4 VERTEBRAL BODY.
[2017-06-16] MEDS ORDERED: cefTRIAXone IN SWFI 1,000 MG/10 ML SYRINGE IVP STA (11:00)
[2017-06-16] MEDS ORDERED: BISACODYL 10 MG SUPP RECTAL PRN (11:04)
[2017-06-16] MEDS ORDERED: MAGNESIUM HYDROXIDE 2,400 MG/10 ML CUP PO PRN (11:04)
[2017-06-16] MEDS ORDERED: FUROSEMIDE 20 MG TAB PO SCH (12:00)
[2017-06-16 12:20] LABS: Appearance,Urine Clear (Clear); Bilirubin,Urine Negative (Negative); Blood,Urine Negative (Negative); Color,Urine Yellow; Glucose,Urine (UA) Negative (Negative); Ketones,Urine Negative (Negative); Leukocyte Esterase,Urine Negative (Negative); Nitrite,Urine Negative (Negative); Protein,Urine Negative (Negative); Specific Gravity,Urine 1.024 (1.001-1.035); Urobilinogen,Urine <2.0 mg/dL (<2.0)
[2017-06-16] MEDS: IPRATROPIUM-ALBUTEROL 3 ML NEB INHALATION SCH ×4 (13:00→23:20)
[2017-06-16] MEDS: methylPREDNISolone SOD SUCCI 125 MG/2 ML VIAL IV SCH ×3 (13:09→23:22)
[2017-06-16] MEDS: NYSTATIN 100,000 UNIT/ML SUSP 500,000 UNIT/5 ML CUP PO SCH ×3 (13:10→21:00)
[2017-06-16] MEDS: SODIUM CHLORIDE 0.9% 1,000 ML IV SCH ×2 (13:15→20:59)
[2017-06-16 16:34] LABS: Glucose,Whole Blood 139 mg/dL (75-99)
[2017-06-16] MEDS: INSULIN ASPART 100 UNIT/ML 1 ML 10 ML VIAL SQ SCH ×2 (16:42→21:17)
[2017-06-16] MEDS: ALPRAZolam 0.25 MG TAB PO SCH ×2 (16:43→21:00)
[2017-06-16] MEDS: HEPARIN SODIUM,PORCINE 5,000 UNIT/ML 1 ML VIAL SQ SCH ×2 (16:43→23:22)
[2017-06-16] MEDS: CHOLECALCIFEROL 1,000 UNIT TAB PO SCH (16:43)
[2017-06-16] MEDS: FORMOTEROL FUMARATE 20 MCG/2 ML NEBU INHALATION SCH (19:17)
--- NOTE | 2017-06-16 20:54 | HP ---
HISTORY AND PHYSICAL DATE OF ADMISSION: 06/16/17 ATTENDING NOTE: The patient seen and examined by me. I discussed with my nurse practitioner Ms. Conner. This is a patient with end-stage COPD, who was just discharged from the hospital yet again. Came back short of breath. It had been discussed with the patient to make her DNR. Condition is end-stage. Patient insists on being on FULL CODE. The patient is very short of breath, slight cough requiring a BiPAP often. EXAMINATION: Afebrile, respiration 22, very short of breath at rest, accessory muscles. LUNGS: Poor air entry, prolonged expiration. Cardiovascular 1st and second sounds normal. Diffuse bruising. ASSESSMENT: 1. Acute exacerbation end-stage chronic obstructive pulmonary disease. 2. Multiple medical problems. Prognosis not good. 3. Follow with Pulmonary. MMODL / IJN: [id number] /
[2017-06-16] MEDS: LISINOPRIL 20 MG TAB PO SCH (21:00)
[2017-06-16 21:14] LABS: Glucose,Whole Blood 152 mg/dL (75-99)
[2017-06-16 22:06] VITALS: RESP 18
[2017-06-17] MEDS: IPRATROPIUM-ALBUTEROL 3 ML NEB INHALATION SCH ×4 (03:41→15:38)
[2017-06-17] MEDS: methylPREDNISolone SOD SUCCI 125 MG/2 ML VIAL IV SCH ×2 (05:55→12:02)
[2017-06-17] MEDS: SODIUM CHLORIDE 0.9% 1,000 ML IV SCH ×2 (06:07→16:31)
[2017-06-17] MEDS: INSULIN ASPART 100 UNIT/ML 1 ML 10 ML VIAL SQ SCH ×3 (06:31→16:42)
[2017-06-17 06:32] LABS: Glucose,Whole Blood 119 mg/dL (75-99)
[2017-06-17] MEDS: FORMOTEROL FUMARATE 20 MCG/2 ML NEBU INHALATION SCH (07:18)
[2017-06-17] MEDS ORDERED: PANTOPRAZOLE 40 MG TABLET PO SCH (07:30)
[2017-06-17] MEDS ORDERED: ISOSORBIDE MONONITRATE ER 30 MG TAB.ER.24H PO SCH (09:00)
[2017-06-17] MEDS ORDERED: THEOPHYLLINE 24 HOUR 300 MG CAP.ER.24H PO SCH (09:00)
[2017-06-17] MEDS: HEPARIN SODIUM,PORCINE 5,000 UNIT/ML 1 ML VIAL SQ SCH ×2 (09:10→15:27)
[2017-06-17] MEDS: NYSTATIN 100,000 UNIT/ML SUSP 500,000 UNIT/5 ML CUP PO SCH ×3 (09:11→16:31)
[2017-06-17] MEDS: LISINOPRIL 20 MG TAB PO SCH (09:11)
[2017-06-17] MEDS: ALPRAZolam 0.25 MG TAB PO SCH ×2 (09:14→16:31)
--- NOTE | 2017-06-17 09:20 | P.PN ---
Progress Note - Text Progress Note Date: 06/17/17 HISTORY OF PRESENT ILLNESS: 72-year-old female patient of Dr. Perry Arevalo with chronic stable medical conditions include asthma, COPD, I disorder, hyperlipidemia, hypertension, pneumonia,osteoporosis.recently had an extensive stay at this facility was discharged to [facility] and has returned with increasing shortness of breath which began 24 hours ago. Very short of breath, cough with minimal sputum production febrileand was brought in by EMS for an acute exacerbation of COPD.received a breathing treatment and placed on BiPAP as she was in respiratory distress. REVIEW OF SYSTEMS GEN.: [ Tired] EYES: [None] HEENT: [None] NECK: [None] RESPIRATORY: [ shortness of breath] CARDIOVASCULAR: [none] GASTROINTESTINAL: [poor appetite] GENITOURINARY: [None] MUSCULOSKELETAL: [none] LYMPHATICS: [None] HEMATOLOGICAL: [None] PSYCHIATRY: [anxiety] NEUROLOGICAL: [headaches] INTEGUMENT:skin is thin and friable fragile ecchymotic PAST MEDICAL HISTORY Past medical history: asthma, COPD, I disorder, hyperlipidemia. Hypertension, pneumonia, oxygen dependence, skin disorder, steroid dependent, chronic hypoxic and hypercapnic respiratory failure, hemorrhoids, osteoporosis, fragile skin. Past surgical history: tubal ligation, glaucoma surgery Past psychological history: anxiety SOCIAL HISTORY: Additional psychological/social history: Smoking use history: former smoker Alcohol use history:denies Drug use history: denies Marital status: Living situation:lives with Work history:retired FAMILY HISTORY: reviewed, noncontributory to current presentation: ALLERGIES: alendronate sodium, latex, natural rubber,levofloxacin HOME MEDICATION: -theophylline 300 mg by mouth daily Protonix 40 mg by mouth daily, Nystatin 500,000 units by mouth 4 times a day Please send him a rectal daily when necessary Magnesium hydroxide 2400 mg by mouth daily when necessary Lisinopril 20 mg by mouth twice a day Imdur 30 mg by mouth daily Ipratropium/albuterol sulfate inhaler 2 puffs inhalation 4 times a day Ipratropium-albuterol nebulize 3 mL inhalation 4 times a day Furosemide 20 mg by mouth every 48 hours Perforomist 20 g inhalation twice a day Cholecalciferol 2000 units by mouth daily Budesonide/formoterol 2 puffs inhalation twice a day Bisacodyl 10 mg rectal daily when necessary Augmentin 875-125 mg 1 tablet by mouth every 12 hours Albuterol sulfate 2 puffs inhalation every 4 hours when necessary Alprazolam 0.25 mg by mouth 3 times a day VITAL SIGNS: [ temperature 97.3, pulse 81, respiratory rate 18, blood pressure 108/53, oxygen saturation 100% on the BiPAP BMI 20.8] GENERAL: [thin built, lying in bed BiPAP in place anxious appearing]. EYES: [Pupils equal. Conjunctiva aqiules]l. HEENT: [External appearance of nose and ears normal, oral cavity grossly normal] . NECK: [JVD not raised; masses not palpable]. HEART: [First and second heart sounds are normal; no edema]. LUNGS:[ Respiratory rate increasedl; poor air entry, inspiratory and expiratory wheezing,prolonged expirationauscultation]. ABDOMEN: [Soft, nontender, liver spleen not palpable, no masses palpable]. LYMPHATICS: [No lymph nodes palpable in the axilla and neck]. PSYCH: [Alert and oriented x3; mood and affect aquiles]l. NEUROLOGICAL: [Cranial nerves grossly intact; no facial asymmetry, power and sensation grossly intact] INTEGUMENT: Skin is friable, thin, ecchymotic. 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 -acute on chronic hypoxic and hypercarbic respiratory failure -End-stage chronic obstructive pulmonary disease. -Normocytic anemia, cause unknown. -Essential hypertension -Hyperlipidemia. -Hypoalbuminemia as an acute phase reactant -Medical debility secondary to chronic obstructive pulmonary disease. CODE STATUS: FULL CODE PLAN: patient currently on the BiPAP, reorder home medications, initiate steroids, nebulized bronchodilators and antibiotics, consult pulmonary. Patient wishes to be a full code for the time being. Plan of care discussed with the patient at bedside we will follow closely. 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 Lugo.
--- NOTE | 2017-06-17 09:23 | P.HPIM ---
History of Present Illness H&P Date: 06/16/17 Chief Complaint: increasing shortness of breath HISTORY OF PRESENT ILLNESS: 72-year-old female patient of Dr. Perry Arevalo with chronic stable medical conditions include asthma, COPD, I disorder, hyperlipidemia, hypertension, pneumonia,osteoporosis.recently had an extensive stay at this facility was discharged to [facility] and has returned with increasing shortness of breath which began 24 hours ago. Very short of breath, cough with minimal sputum production febrileand was brought in by EMS for an acute exacerbation of COPD.received a breathing treatment and placed on BiPAP as she was in respiratory distress. REVIEW OF SYSTEMS GEN.: [ Tired] EYES: [None] HEENT: [None] NECK: [None] RESPIRATORY: [ shortness of breath] CARDIOVASCULAR: [none] GASTROINTESTINAL: [poor appetite] GENITOURINARY: [None] MUSCULOSKELETAL: [none] LYMPHATICS: [None] HEMATOLOGICAL: [None] PSYCHIATRY: [anxiety] NEUROLOGICAL: [headaches] INTEGUMENT:skin is thin and friable fragile ecchymotic PAST MEDICAL HISTORY Past medical history: asthma, COPD, I disorder, hyperlipidemia. Hypertension, pneumonia, oxygen dependence, skin disorder, steroid dependent, chronic hypoxic and hypercapnic respiratory failure, hemorrhoids, osteoporosis, fragile skin. Past surgical history: tubal ligation, glaucoma surgery Past psychological history: anxiety SOCIAL HISTORY: Additional psychological/social history: Smoking use history: former smoker Alcohol use history:denies Drug use history: denies Marital status: Living situation:lives with Work history:retired FAMILY HISTORY: reviewed, noncontributory to current presentation: ALLERGIES: alendronate sodium, latex, natural rubber,levofloxacin HOME MEDICATION: -theophylline 300 mg by mouth daily Protonix 40 mg by mouth daily, Nystatin 500,000 units by mouth 4 times a day Please send him a rectal daily when necessary Magnesium hydroxide 2400 mg by mouth daily when necessary Lisinopril 20 mg by mouth twice a day Imdur 30 mg by mouth daily Ipratropium/albuterol sulfate inhaler 2 puffs inhalation 4 times a day Ipratropium-albuterol nebulize 3 mL inhalation 4 times a day Furosemide 20 mg by mouth every 48 hours Perforomist 20 g inhalation twice a day Cholecalciferol 2000 units by mouth daily Budesonide/formoterol 2 puffs inhalation twice a day Bisacodyl 10 mg rectal daily when necessary Augmentin 875-125 mg 1 tablet by mouth every 12 hours Albuterol sulfate 2 puffs inhalation every 4 hours when necessary Alprazolam 0.25 mg by mouth 3 times a day VITAL SIGNS: [ temperature 97.3, pulse 81, respiratory rate 18, blood pressure 108/53, oxygen saturation 100% on the BiPAP BMI 20.8] GENERAL: [thin built, lying in bed BiPAP in place anxious appearing]. EYES: [Pupils equal. Conjunctiva aquiles]l. HEENT: [External appearance of nose and ears normal, oral cavity grossly normal] . NECK: [JVD not raised; masses not palpable]. HEART: [First and second heart sounds are normal; no edema]. LUNGS:[ Respiratory rate increasedl; poor air entry, inspiratory and expiratory wheezing,prolonged expirationauscultation]. ABDOMEN: [Soft, nontender, liver spleen not palpable, no masses palpable]. LYMPHATICS: [No lymph nodes palpable in the axilla and neck]. PSYCH: [Alert and oriented x3; mood and affect aquiles]l. NEUROLOGICAL: [Cranial nerves grossly intact; no facial asymmetry, power and sensation grossly intact] INTEGUMENT: Skin is friable, thin, ecchymotic. 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 -acute on chronic hypoxic and hypercarbic respiratory failure -End-stage chronic obstructive pulmonary disease. -Normocytic anemia, cause unknown. -Essential hypertension -Hyperlipidemia. -Hypoalbuminemia as an acute phase reactant -Medical debility secondary to chronic obstructive pulmonary disease. CODE STATUS: FULL CODE PLAN: patient currently on the BiPAP, reorder home medications, initiate steroids, nebulized bronchodilators and antibiotics, consult pulmonary. Patient wishes to be a full code for the time being. Plan of care discussed with the patient at bedside we will follow closely. BARREL FINISHER STATEMENT: Patient was seen and examined by nurse practitioner Hailey Conner and all elements of the case were discussed with attending Dr. Lugo. Past Medical History Past Medical History: Asthma, COPD, Eye Disorder, Hyperlipidemia, Hypertension, Pneumonia, Respiratory Disorder, Skin Disorder Additional Past Medical History / Comment(s): Pt recently admitted 05/29/17 with acute on chronic hypercapnic and hypoxic respiratory failure. Other Hx; Advanced oxygen and steroid dependent, chronic hypoxic and hypercapnic respiratory failure, vented once in past, acute on chronic hypercapnic respiratory failure, bronchitis, cataracts/glaucoma bilaterally, previous UTI, hyponatremia, migraines but none for years, hepatitis A as a child , hemorrhoids , osteoporosis, fragile skin. History of Any Multi-Drug Resistant Organisms: None Reported Past Surgical History: Tubal Ligation Additional Past Surgical History / Comment(s): Bilateral eye surgery-daughter thinks it was for glaucoma. Past Anesthesia/Blood Transfusion Reactions: No Reported Reaction Additional Past Anesthesia/Blood Transfusion Reaction / Comment(s): Pt has never recieved blood. Past Psychological History: No Psychological Hx Reported Additional Psychological History / Comment(s): Patient has progressive COPD that is steroid and oxygen dependent. Smoking Status: Former smoker Past Alcohol Use History: None Reported Additional Past Alcohol Use History / Comment(s): Pt started smoking in 1962 and quit in 2012 Past Drug Use History: None Reported - Past Family History Father History Unknown: Yes Family Medical History: No Reported History Additional Family Medical History / Comment(s): Father when pt was young. Mother Family Medical History: Coronary Artery Disease (CAD), Myocardial Infarction ([place] ) Additional Family Medical History / Comment(s): Mother had CABG Medications and Allergies Home Medications Medication Instructions Recorded Confirmed Type Albuterol Sulfate [Proair Hfa] 2 puff INHALATION RT-Q4H PRN 10/29/13 06/16/17 History Isosorbide Mononitrate ER [Imdur] 30 mg PO DAILY 10/29/13 06/16/17 History Theophylline 24 Hour [Benigno-24] 300 mg PO DAILY 10/29/13 06/16/17 History Lisinopril [Zestril] 20 mg PO BID 09/23/15 06/16/17 History Furosemide [Lasix] 20 mg PO Q48H 12/16/16 06/16/17 History Budesonide/Formoterol Fumarate 2 puff INHALATION RT-BID 05/29/17 06/16/17 History [Symbicort 160-4.5 Mcg Inhaler] Formoterol Fumarate [Perforomist] 20 mcg INHALATION RT-BID #1 nebu 06/01/17 Rx Pantoprazole [Protonix] 40 mg PO AC-BRKFST #30 tablet. 06/01/17 06/16/17 Rx ALPRAZolam [Xanax] 0.25 mg PO TID #20 tab 06/14/17 06/16/17 Rx Nystatin 100,000 Unit/ml Susp 500,000 unit PO QID cup 06/14/17 06/16/17 Rx [Mycostatin Oral Susp] Amoxic-Pot Clav 875-125Mg 1 tab PO Q12HR 06/16/17 06/16/17 History [Augmentin 875-125] Bisacodyl [Dulcolax] 10 mg RECTAL DAILY PRN 06/16/17 06/16/17 History Cholecalciferol [Vitamin D3] 2,000 unit PO DAILY@1700 06/16/17 06/16/17 History Ipratropium-Albuterol Nebulize 3 ml INHALATION RT-QID 06/16/17 06/16/17 History [Duoneb 0.5 mg-3 mg/3 ml Soln] Ipratropium/Albuterol Sulfate 2 puff INHALATION RT-QID 06/16/17 06/16/17 History [Combivent Respimat Inhaler] Magnesium Hydroxide [Milk of 2,400 mg PO DAILY PRN 06/16/17 06/16/17 History Magnesia] Na Phos,M-B/Na Phos,Di-Ba [Fleet 133 ml RECTAL DAILY PRN 06/16/17 06/16/17 History Adult] Allergies Allergy/AdvReac Type Severity Reaction Status Date / Time alendronate sodium Allergy Swelling Verified 06/16/17 08:30 [From Fosamax] Latex, Natural Rubber Allergy Rash/Hives Verified 06/16/17 08:30 levofloxacin [From Levaquin] AdvReac Diarrhea Verified 06/16/17 08:30 Physical Exam Vitals: Vital Signs Temp Pulse Pulse Resp BP BP Pulse Ox 06/17/17 07:35 76 06/17/17 07:25 76 06/17/17 07:19 72 06/17/17 04:00 97.0 F L 81 18 110/59 99 06/17/17 03:51 70 06/17/17 03:41 70 06/17/17 00:00 97.6 F 80 18 118/64 98 06/16/17 23:30 80 06/16/17 23:21 99 06/16/17 23:20 77 06/16/17 20:00 97.3 F L 81 18 108/53 100 06/16/17 19:36 78 06/16/17 19:30 78 06/16/17 19:28 76 06/16/17 19:18 70 06/16/17 16:00 98.3 F 80 20 106/60 99 06/16/17 15:45 72 06/16/17 15:36 72 06/16/17 15:10 69 24 06/16/17 13:00 78 06/16/17 12:50 73 06/16/17 12:32 80 19 104/59 97 06/16/17 11:13 98.9 F 69 22 97 06/16/17 10:19 94 26 H 121/59 99 Intake and Output 06/16/17 06/17/17 06/17/17 22:59 06:59 14:59 Intake Total 10 10 360 Output Total 200 100 Balance 10 -190 260 Intake: Intake, IV Titration 10 10 Amount Sodium Chloride 0.9% 1, 10 10 000 ml @ 100 mls/hr IV . Q10H [facility] Rx#:[id number] Oral 360 Output: Urine 200 100 Other: Voiding Method Bedpan Bedside Commode # Voids 1 # Bowel Movements 1 2 Weight 51.7 kg Results CBC & Chem 7: 06/16/17 07:10 06/16/17 07:40 Labs: Abnormal Lab Results - Last 24 Hours (Table) 06/16/17 06/16/17 06/17/17 Range/Units 16:22 21:11 06:04 POC Glucose (mg/dL) 139 H 152 H 119 H (75-99) mg/dL Thrombosis Risk Factor Assmnt - Choose All That Apply Each Risk Factor Represents 2 Points: Age 61-74 years Thrombosis Risk Factor Assessment Total Risk Factor Score: 2 Thrombosis Risk Factor Assessment Level: Low Risk
[2017-06-17 10:20] VITALS: TEMP 98.6
[2017-06-17 11:33] LABS: Glucose,Whole Blood 149 mg/dL (75-99)
[2017-06-17 12:52] LABS: Basophils % (A) 0 %; Eosinophils % (A) 0 %; HCT 42.6 % (34.0-46.0); HGB 12.9 gm/dL (11.4-16.0); Hypochromasia Slight; Lymphocytes # (A) 0.3 k/uL (1.0-4.8); Lymphocytes % (A) 3 %; MCH 31.8 pg (25.0-35.0); MCHC 30.3 g/dL (31.0-37.0); Macrocytosis Moderate; Mean Platelet Volume 9.4; Monocytes # (A) 0.5 k/uL (0-1.0); Monocytes % (A) 5 %; Neutrophils # (A) 8.8 k/uL (1.3-7.7); Neutrophils % (A) 92 %; Platelet Count 217 k/uL (150-450); RBC 4.05 m/uL (3.80-5.40); RDW 15.9 % (11.5-15.5); WBC 9.6 k/uL (3.8-10.6)
[2017-06-17 13:09] LABS: Anion Gap 6 mmol/L; Blood Urea Nitrogen 21 mg/dL (7-17); Calcium 9.4 mg/dL (8.4-10.2); Carbon Dioxide 33 mmol/L (22-30); Chloride 95 mmol/L (98-107); Glucose 138 mg/dL (74-99); Potassium 4.5 mmol/L (3.5-5.1); Sodium 134 mmol/L (137-145)
--- NOTE | 2017-06-17 15:08 | P.CNPUL ---
History of Present Illness Consult date: 06/17/17 Reason for consult: dyspnea, cough, COPD Chief complaint: Shortness of breath History of present illness: Consult dated 06/17/2017 72-year-old female who recently was discharged from this hospital on Saturday last. She went to [facility]. Apparently at [facility] they did not have all her medications available to her and she decided to come back into the hospital. She was readmitted yesterday. She was seen in the emergency room on the . She apparently was not having any additional complaints. She was not more short of breath she wasn't coughing wasn't producing any phlegm no chest pain chest discomfort. She was basically about the same went as when she was discharged. She was complaining because when she got to [facility] that he did have really all her medications. This included things such as her steroids her breathing treatments or Symbicort, etc. She states she is going be discharged today. She is going home instead. Not back to [facility]. Review of Systems A 12 point review of system is positive for chronic dyspnea on exertion chronic cough chronic phlegm production. These are all her baseline symptoms. Nothing much has changed since her last admission. Past Medical History Past Medical History: Asthma, COPD, Eye Disorder, Hyperlipidemia, Hypertension, Pneumonia, Respiratory Disorder, Skin Disorder Additional Past Medical History / Comment(s): Pt recently admitted 05/29/17 with acute on chronic hypercapnic and hypoxic respiratory failure. Other Hx; Advanced oxygen and steroid dependent, chronic hypoxic and hypercapnic respiratory failure, vented once in past, acute on chronic hypercapnic respiratory failure, bronchitis, cataracts/glaucoma bilaterally, previous UTI, hyponatremia, migraines but none for years, hepatitis A as a child , hemorrhoids , osteoporosis, fragile skin. History of Any Multi-Drug Resistant Organisms: None Reported Past Surgical History: Tubal Ligation Additional Past Surgical History / Comment(s): Bilateral eye surgery-daughter thinks it was for glaucoma. Past Anesthesia/Blood Transfusion Reactions: No Reported Reaction Additional Past Anesthesia/Blood Transfusion Reaction / Comment(s): Pt has never recieved blood. Past Psychological History: No Psychological Hx Reported Additional Psychological History / Comment(s): Patient has progressive COPD that is steroid and oxygen dependent. Smoking Status: Former smoker Past Alcohol Use History: None Reported Additional Past Alcohol Use History / Comment(s): Pt started smoking in 1962 and quit in 2012 Past Drug Use History: None Reported - Past Family History Father History Unknown: Yes Family Medical History: No Reported History Additional Family Medical History / Comment(s): Father when pt was young. Mother Family Medical History: Coronary Artery Disease (CAD), Myocardial Infarction ([place] ) Additional Family Medical History / Comment(s): Mother had CABG Medications and Allergies Home Medications Medication Instructions Recorded Confirmed Type Albuterol Sulfate [Proair Hfa] 2 puff INHALATION RT-Q4H PRN 10/29/13 06/16/17 History Isosorbide Mononitrate ER [Imdur] 30 mg PO DAILY 10/29/13 06/16/17 History Theophylline 24 Hour [Benigno-24] 300 mg PO DAILY 10/29/13 06/16/17 History Lisinopril [Zestril] 20 mg PO BID 09/23/15 06/16/17 History Furosemide [Lasix] 20 mg PO Q48H 12/16/16 06/16/17 History Budesonide/Formoterol Fumarate 2 puff INHALATION RT-BID 05/29/17 06/16/17 History [Symbicort 160-4.5 Mcg Inhaler] Formoterol Fumarate [Perforomist] 20 mcg INHALATION RT-BID #1 nebu 06/01/17 Rx Pantoprazole [Protonix] 40 mg PO AC-BRKFST #30 tablet.dr 06/01/17 06/16/17 Rx ALPRAZolam [Xanax] 0.25 mg PO TID #20 tab 06/14/17 06/16/17 Rx Nystatin 100,000 Unit/ml Susp 500,000 unit PO QID cup 06/14/17 06/16/17 Rx [Mycostatin Oral Susp] Bisacodyl [Dulcolax] 10 mg RECTAL DAILY PRN 06/16/17 06/16/17 History Cholecalciferol [Vitamin D3] 2,000 unit PO DAILY@1700 06/16/17 06/16/17 History Ipratropium-Albuterol Nebulize 3 ml INHALATION RT-QID 06/16/17 06/16/17 History [Duoneb 0.5 mg-3 mg/3 ml Soln] Ipratropium/Albuterol Sulfate 2 puff INHALATION RT-QID 06/16/17 06/16/17 History [Combivent Respimat Inhaler] Magnesium Hydroxide [Milk of 2,400 mg PO DAILY PRN 06/16/17 06/16/17 History Magnesia] Na Phos,M-B/Na Phos,Di-Ba [Fleet 133 ml RECTAL DAILY PRN 06/16/17 06/16/17 History Adult] Allergies Allergy/AdvReac Type Severity Reaction Status Date / Time alendronate sodium Allergy Swelling Verified 06/16/17 08:30 [From Fosamax] Latex, Natural Rubber Allergy Rash/Hives Verified 06/16/17 08:30 levofloxacin [From Levaquin] AdvReac Diarrhea Verified 06/16/17 08:30 Physical Exam Osteopathic Statement: *. No significant issues noted on an osteopathic structural exam other than those noted in the History and Physical/Consult. Vitals: Vital Signs Temp Pulse Pulse Resp BP Pulse Ox 06/17/17 12:05 98.6 F 107 H 18 123/63 95 06/17/17 10:55 76 06/17/17 10:49 72 06/17/17 09:10 98.6 F 102 H 18 130/70 98 06/17/17 07:35 76 06/17/17 07:25 76 06/17/17 07:19 72 06/17/17 04:00 97.0 F L 81 18 110/59 99 06/17/17 03:51 70 06/17/17 03:41 70 06/17/17 00:00 97.6 F 80 18 118/64 98 06/16/17 23:30 80 06/16/17 23:21 99 06/16/17 23:20 77 06/16/17 20:00 97.3 F L 81 18 108/53 100 06/16/17 19:36 78 06/16/17 19:30 78 06/16/17 19:28 76 06/16/17 19:18 70 06/16/17 16:00 98.3 F 80 20 106/60 99 06/16/17 15:45 72 06/16/17 15:36 72 06/16/17 15:10 69 24 Intake and Output 06/16/17 06/17/17 06/17/17 22:59 06:59 14:59 Intake Total 10 10 720 Output Total 200 100 Balance 10 -190 620 Intake: Intake, IV Titration 10 10 Amount Sodium Chloride 0.9% 1, 10 10 000 ml @ 100 mls/hr IV . Q10H [facility] Rx#:[id number] Oral 720 Output: Urine 200 100 Other: Voiding Method Bedpan Bedside Commode Bedside Commode # Voids 1 # Bowel Movements 1 1 Weight 51.7 kg No acute distress, oriented 3. Mildly tachypnea. Oxygen in place. HEENT examination is grossly unremarkable. Mucous membranes are moist. No oral lesions. Neck supple. Full range of motion. No adenopathy thyromegaly or neck vein distention. Cardiovascular examination reveals regular rhythm rate. S1-S2 normal. No S3 or S4. No discernible murmur noted. Lungs reveal scattered bilateral rhonchi. Breath sounds are diminished severely. Her sounds are equal though. There is prolongation on forced maneuver. A few scattered crackles. Some high-pitched wheezes are also noted. Abdomen soft bowel sounds are heard. No masses or tenderness. Extremities are intact. No cyanosis clubbing or edema. Skin reveals a few scattered ecchymoses.. Neurologic examination is brief but nonfocal. Results - Laboratory Findings CBC and BMP: 06/17/17 12:19 06/17/17 12:19 PT/INR, D-dimer PT 9.7 sec (9.0-12.0) 06/16/17 07:10 INR 1.0 (<1.2) 06/16/17 07:10 D-Dimer 1.69 mg/L FEU (<0.60) H 06/16/17 07:10 Abnormal lab findings: Abnormal Labs 06/16/17 06/16/17 06/16/17 07:10 07:10 07:40 WBC 11.9 H MCV 100.6 H MCHC RDW Neutrophils # 10.0 H Lymphocytes # D-Dimer 1.69 H Sodium 135 L Chloride 94 L Carbon Dioxide 37 H BUN 23 H Creatinine 0.44 L Glucose 116 H POC Glucose (mg/dL) ALT 73 H Total Creatine Kinase Total Protein 5.9 L Albumin 3.3 L 06/16/17 06/16/17 06/16/17 07:40 16:22 21:11 WBC MCV MCHC RDW Neutrophils # Lymphocytes # D-Dimer Sodium Chloride Carbon Dioxide BUN Creatinine Glucose POC Glucose (mg/dL) 139 H 152 H ALT Total Creatine Kinase 26 L Total Protein Albumin 06/17/17 06/17/17 06/17/17 06:04 11:31 12:19 WBC MCV 105.0 H MCHC 30.3 L RDW 15.9 H Neutrophils # 8.8 H Lymphocytes # 0.3 L D-Dimer Sodium Chloride Carbon Dioxide BUN Creatinine Glucose POC Glucose (mg/dL) 119 H 149 H ALT Total Creatine Kinase Total Protein Albumin 06/17/17 12:19 WBC MCV MCHC RDW Neutrophils # Lymphocytes # D-Dimer Sodium 134 L Chloride 95 L Carbon Dioxide 33 H BUN 21 H Creatinine 0.39 L Glucose 138 H POC Glucose (mg/dL) ALT Total Creatine Kinase Total Protein Albumin - Diagnostic Findings Chest x-ray: image reviewed (Labs x-rays a medications are all reviewed.) Assessment and Plan (1) Acute exacerbation of chronic obstructive airways disease Current Visit: Yes Status: Acute Code(s): J44.1 - CHRONIC OBSTRUCTIVE PULMONARY DISEASE W (ACUTE) EXACERBATION SNOMED Code(s): 048043811 (2) Adult respiratory distress syndrome Current Visit: Yes Status: Acute Code(s): J80 - ACUTE RESPIRATORY DISTRESS SYNDROME SNOMED Code(s): 57052754 (3) Acute respiratory failure Current Visit: No Status: Acute Code(s): J96.00 - ACUTE RESPIRATORY FAILURE , UNSP W HYPOXIA OR HYPERCAPNIA SNOMED Code(s): 82107613 (4) COPD exacerbation Current Visit: No Status: Acute Code(s): J44.1 - CHRONIC OBSTRUCTIVE PULMONARY DISEASE W (ACUTE) EXACERBATION SNOMED Code(s): 815835506280029 (5) Community acquired pneumonia Current Visit: No Status: Acute Code(s): J18.9 - PNEUMONIA, UNSPECIFIED ORGANISM SNOMED Code(s): 814815236 (6) Hyperlipidemia Current Visit: No Status: Acute Code(s): E78.5 - HYPERLIPIDEMIA, UNSPECIFIED SNOMED Code(s): 92287527 (7) Hypertension Current Visit: No Status: Acute Code(s): I10 - ESSENTIAL (PRIMARY) HYPERTENSION SNOMED Code(s): 99378058 (8) Hypoxemia Current Visit: No Status: Acute Code(s): R09.02 - HYPOXEMIA SNOMED Code(s) : 243837920 (9) Osteoporosis Current Visit: No Status: Acute Code(s): M81.0 - AGE-RELATED OSTEOPOROSIS W/ O CURRENT PATHOLOGICAL FRACTURE SNOMED Code(s): 12984916 (10) Respiratory failure with hypoxia and hypercapnia Current Visit: No Status: Acute Code(s): J96.91 - RESPIRATORY FAILURE, UNSPECIFIED WITH HYPOXIA; J96.92 - RESPIRATORY FAILURE, UNSPECIFIED WITH HYPERCAPNIA SNOMED Code(s): 09526944 Plan: Plan dated 06/17/2017 The patient's doing well. From our perspective she could be discharged. We do asked her about whether or not she has everything at home that she needs. She states that she has oxygen breathing treatments medication for the nebulizer machine Symbicort steroids and all her other medications. In addition, she would like to try a combination of Pulmicort 1 mg mixed with performance in place over Symbicort. We'll see if we can accomplish that. Ductions are forthcoming. She'll follow-up with Dr. Parker in the office. Time with Patient: Greater than 30
[2017-06-17 16:03] VITALS: BP 140/73; PULSE 110
[2017-06-17] MEDS: CHOLECALCIFEROL 1,000 UNIT TAB PO SCH (16:31)
[2017-06-17 16:52] LABS: Glucose,Whole Blood 130 mg/dL (75-99)
--- NOTE | 2017-06-17 16:57 | P.DS ---
Providers Date of admission: 06/16/17 10:58 Expected date of discharge: 06/17/17 Attending physician: Ramiro Lugo Consults: 06/16/17 11:05 Consult Physician Routine Consulting Provider: Jordyn Ventura Consult Reason/Comments: COPD exacerbation with fever Do you want consulting provider notified?: Yes Primary care physician: [facility] Course: FINAL DIAGNOSES: -acute exacerbation of end-stage chronic obstructive pulmonary disease. -acute on chronic hypoxic and hypercarbic respiratory failure -End-stage chronic obstructive pulmonary disease. -Normocytic anemia, cause unknown. -Essential hypertension -Hyperlipidemia. -Hypoalbuminemia as an acute phase reactant -Medical debility secondary to chronic obstructive pulmonary disease. CODE STATUS: FULL CODE HOSPTIAL COURSE: 72-year-old female who had recently had an extensive hospital stay at this facility was discharged to [facility] and returned with increasing shortness of breath was found to be in an acute exacerbation of COPD admitted for the same. Home medications reordered, nebulized bronchodilators given placed on the BiPAP as she was in acute respiratory distress. Pulmonology consulted. Remained on the BiPAP for the entirety of the night. Breathing improved, continue to receive nebulized bronchodilators and steroids per pulmonology. It is the patient's wish to return home rather than back to rehabilitation Center. Appropriate arrangements have been made by social work to achieve this. Pulmonology additionally recommends conversation of Pulmicort with Perforomist and these changes are reflected on her discharge medications. Patient's breathing is much improved, she is oxygen dependent on 3 L, oxygen saturations are 90-94%, she has low exercise tolerance but this is her baseline. Tolerating her diet eating between 50 and 75% of her meals, up with assistance and knows to take rest breaks frequently. Consultants agreed patient 's condition has stabilized back to her baseline and is appropriate for discharge. PHYSICAL EXAM: CARDIOVASCULAR: First and second sounds noted no edema RESPIRATORY: Respiratory effort increased at rest, conversational dyspnea, inspiratory and expiratory wheezing GI: Abdomen soft nontender liver and spleen not palpable MUSKULOSKELETAL: Diffuse wasting of the muscles, INTEGUMENT: Scattered ecchymoses on upper and lower extremities, thin fragile friable skin PSYCHIATRY: Alert and oriented 3 mood and affect normal.: Patient was seen and examined by nurse practitioner Hailey Gressle in all elements of the case discussed with attending Dr. Lugo DISPOSITION: Discharged home with home care Patient Condition at Discharge: Stable Plan - Discharge Summary Discharge Rx Participant: No New Discharge Prescriptions: New Budesonide [Pulmicort] 0.25 mg INHALATION BID #60 neb predniSONE See Taper PO DAILY #30 tab Continue Isosorbide Mononitrate ER [Imdur] 30 mg PO DAILY Theophylline 24 Hour [Benigno-24] 300 mg PO DAILY Albuterol Sulfate [Proair Hfa] 2 puff INHALATION RT-Q4H PRN PRN Reason: Shortness Of Breath Or Wheezing Lisinopril [Zestril] 20 mg PO BID Furosemide [Lasix] 20 mg PO Q48H Formoterol Fumarate [Perforomist] 20 mcg INHALATION RT-BID #1 nebu Pantoprazole [Protonix] 40 mg PO AC-BRKFST #30 tablet. Nystatin 100,000 Unit/ml Susp [Mycostatin Oral Susp] 500,000 unit PO QID cup ALPRAZolam [Xanax] 0.25 mg PO TID #20 tab Bisacodyl [Dulcolax] 10 mg RECTAL DAILY PRN PRN Reason: Constipation Cholecalciferol [Vitamin D3] 2,000 unit PO DAILY@1700 Ipratropium-Albuterol Nebulize [Duoneb 0.5 mg-3 mg/3 ml Soln] 3 ml INHALATION RT-QID Ipratropium/Albuterol Sulfate [Combivent Respimat Inhaler] 2 puff INHALATION RT-QID Magnesium Hydroxide [Milk of Magnesia] 2,400 mg PO DAILY PRN PRN Reason: Constipation Na Phos,M-B/Na Phos,Di-Ba [Fleet Adult] 133 ml RECTAL DAILY PRN PRN Reason: Constipation Discontinued Budesonide/Formoterol Fumarate [Symbicort 160-4.5 Mcg Inhaler] 2 puff INHALATION RT-BID Amoxic-Pot Clav 875-125Mg [Augmentin 875-125] 1 tab PO Q12HR Discharge Medication List Albuterol Sulfate [Proair Hfa] 2 puff INHALATION RT-Q4H PRN 10/29/13 [History] Isosorbide Mononitrate ER [Imdur] 30 mg PO DAILY 10/29/13 [History] Theophylline 24 Hour [Benigno-24] 300 mg PO DAILY 10/29/13 [History] Lisinopril [Zestril] 20 mg PO BID 09/23/15 [History] Furosemide [Lasix] 20 mg PO Q48H 12/16/16 [History] Formoterol Fumarate [Perforomist] 20 mcg INHALATION RT-BID #1 nebu 06/01/17 [Rx] Pantoprazole [Protonix] 40 mg PO AC-BRKFST #30 tablet.dr 06/01/17 [Rx] ALPRAZolam [Xanax] 0.25 mg PO TID #20 tab 06/14/17 [Rx] Nystatin 100,000 Unit/ml Susp [Mycostatin Oral Susp] 500,000 unit PO QID cup [Rx] Bisacodyl [Dulcolax] 10 mg RECTAL DAILY PRN 06/16/17 [History] Cholecalciferol [Vitamin D3] 2,000 unit PO DAILY@1700 06/16/17 [History] Ipratropium-Albuterol Nebulize [Duoneb 0.5 mg-3 mg/3 ml Soln] 3 ml INHALATION RT -QID 06/16/17 [History] Ipratropium/Albuterol Sulfate [Combivent Respimat Inhaler] 2 puff INHALATION RT- QID 06/16/17 [History] Magnesium Hydroxide [Milk of Magnesia] 2,400 mg PO DAILY PRN 06/16/17 [History] Na Phos,M-B/Na Phos,Di-Ba [Fleet Adult] 133 ml RECTAL DAILY PRN 06/16/17 [ History] Budesonide [Pulmicort] 0.25 mg INHALATION BID #60 neb 06/17/17 [Rx] predniSONE See Taper PO DAILY #30 tab 06/17/17 [Rx] Follow up Appointment(s)/Referral(s): Misty Parker MD [STAFF PHYSICIAN] - 06/28/17 10:30 am (Saturday) [facility], [NON-STAFF] - Gumaro Cummings DO [STAFF PHYSICIAN] - 06/25/17 2:15 pm (Saturday) Ambulatory/Diagnostic Orders: Basic Metabolic Panel [LAB.AMB] Location: Determined By Patient Patient Instructions/Handouts: COPD (Chronic Obstructive Pulmonary Disease) (DC ) Activity/Diet/Wound Care/Special Instructions: [facility] - Bedside [facility] - [phone] Discharge Disposition: HOME WITH HOME HEALTH SERVICES
--- NOTE | 2017-06-18 08:15 | DS ---
DISCHARGE SUMMARY DATE OF SERVICE: 06/17/2017 ATTENDING NOTE: The patient was seen and examined by me. Discussed with nurse practitioner, Ms. Conner. Patient has really perked up, very keen to go home. Does not want to go back to the F. The patient's code status remains FULL. ON EXAM: LUNGS: Decreased breath sounds. Sitting up, tolerating a diet. Short of breath per rest. Discharge home. Prognosis is guarded. Patient to followup with her chief of surgery, Dr. Parker. MMODL / FABYN: [id number] /
== END 2017-06-17 17:15 | disposition home health service (06) | DRG 190 ==
LOC: EC 07:06 → 6SEL 10:58
PROVIDERS: ADMIT Hospitalist; ATTEND Hospitalist
DX: J44.1 Chronic obstructive pulmonary disease with (acute) exacerbation (principal); J96.21 Acute and chronic respiratory failure with hypoxia; E88.09 Other disorders of plasma-protein metabolism, not elsewhere classified; J96.22 Acute and chronic respiratory failure with hypercapnia; Z99.81 Dependence on supplemental oxygen; D64.9 Anemia, unspecified; I10 Essential (primary) hypertension; E78.5 Hyperlipidemia, unspecified; F41.9 Anxiety disorder, unspecified; H40.9 Unspecified glaucoma; H26.9 Unspecified cataract; M81.0 Age-related osteoporosis without current pathological fracture; Z79.51 Long term (current) use of inhaled steroids; Z79.899 Other long term (current) drug therapy; Z87.440 Personal history of urinary (tract) infections; Z87.891 Personal history of nicotine dependence; Z88.8 Allergy status to other drugs, medicaments and biological substances; Z88.1 Allergy status to other antibiotic agents; Z91.040 Latex allergy status
CPT/HCPCS: 36415; 71046; 71275; 80048; 80053; 81003; 82550; 82553; 83735; 83880; 84484; 85025; 85379; 85610; 85730; 87040; 87502; 93005; 94640; 94660; 94760; 96361; 96365; 96375; 99291

== ENCOUNTER 2017-06-20 09:44 | Inpatient (IN) | payer MEDICARE ==
[2017-06-20] MEDS ORDERED: ENALAPRILAT 1.25 MG/ML 1 ML VIAL IVP STA (09:48)
[2017-06-20] MEDS ORDERED: LORazepam 2 MG/ML INJ IV STA (09:48)
[2017-06-20] MEDS ORDERED: methylPREDNISolone SOD SUCCI 125 MG/2 ML VIAL IV STA (09:48)
[2017-06-20] MEDS ORDERED: IPRATROPIUM 0.5 MG/2.5 ML NEBU INHALATION STA (09:48)
[2017-06-20] MEDS ORDERED: ALBUTEROL NEBULIZED 2.5 MG/3 ML INHALATION STA (09:48)
[2017-06-20] MEDS: SODIUM CHLORIDE 0.9% 1,000 ML IV STA ×2 (10:08→18:22)
--- NOTE | 2017-06-20 10:08 | ED ---
General Adult HPI - General Chief complaint: Shortness of Breath Stated complaint: Difficulty Breathing Time Seen by Provider: 06/20/17 09:48 Source: patient, RN notes reviewed, old records reviewed Mode of arrival: EMS - History of Present Illness Initial comments: This is a 72-year-old female to the ER for evaluation of shortness of breath. Patient coming in severe respiratory distress. Patient has history of COPD and recent hospital admission for pneumonia. Patient is unable to give history secondary to clinical condition, patient is being brought in by EMS who states patient called EMS for shortness of breath cough and congestion, they were able to get her oxygen up with high flow oxygen in route, continuous breathing treatments. - Related Data Home Medications Medication Instructions Recorded Confirmed Albuterol Sulfate [Proair Hfa] 2 puff INHALATION RT-Q4H PRN 10/29/13 06/20/17 Isosorbide Mononitrate ER [Imdur] 30 mg PO DAILY 10/29/13 06/20/17 Theophylline 24 Hour [Benigno-24] 300 mg PO DAILY 10/29/13 06/20/17 Lisinopril [Zestril] 20 mg PO BID 09/23/15 06/20/17 Furosemide [Lasix] 20 mg PO Q48H 12/16/16 06/20/17 Bisacodyl [Dulcolax] 10 mg RECTAL DAILY PRN 06/16/17 06/20/17 Cholecalciferol [Vitamin D3] 2,000 unit PO DAILY@1700 06/16/17 06/20/17 Ipratropium-Albuterol Nebulize 3 ml INHALATION RT-QID 06/16/17 06/20/17 [Duoneb 0.5 mg-3 mg/3 ml Soln] Ipratropium/Albuterol Sulfate 2 puff INHALATION RT-QID 06/16/17 06/20/17 [Combivent Respimat Inhaler] Magnesium Hydroxide [Milk of 2,400 mg PO DAILY PRN 06/16/17 06/20/17 Magnesia] Na Phos,M-B/Na Phos,Di-Ba [Fleet 133 ml RECTAL DAILY PRN 06/16/17 06/20/17 Adult] ALPRAZolam [Xanax] 0.25 mg PO TID@0900,1600,2200 06/20/17 06/20/17 Budesonide [Pulmicort] 0.25 mg INHALATION RT-BID 06/20/17 06/20/17 Previous Rx's Medication Instructions Recorded Formoterol Fumarate [Perforomist] 20 mcg INHALATION RT-BID #1 nebu 06/01/17 Pantoprazole [Protonix] 40 mg PO AC-BRKFST #30 tablet. 06/01/17 Nystatin 100,000 Unit/ml Susp 500,000 unit PO QID cup 06/14/17 [Mycostatin Oral Susp] predniSONE See Taper PO DAILY #30 tab 06/17/17 Allergies Allergy/AdvReac Type Severity Reaction Status Date / Time alendronate sodium Allergy Swelling Verified 06/20/17 09:58 [From Fosamax] Latex, Natural Rubber Allergy Rash/Hives Verified 06/20/17 09:58 levofloxacin [From Levaquin] AdvReac Diarrhea Verified 06/20/17 09:58 Review of Systems ROS Statement: Those systems with pertinent positive or pertinent negative responses have been documented in the HPI. ROS Other: All systems not noted in ROS Statement are negative. Past Medical History Past Medical History: Asthma, COPD, Eye Disorder, Hyperlipidemia, Hypertension, Pneumonia, Respiratory Disorder, Skin Disorder Additional Past Medical History / Comment(s): Pt recently admitted 05/29/17 with acute on chronic hypercapnic and hypoxic respiratory failure. Other Hx; Advanced oxygen and steroid dependent, chronic hypoxic and hypercapnic respiratory failure, vented once in past, acute on chronic hypercapnic respiratory failure, bronchitis, cataracts/glaucoma bilaterally, previous UTI, hyponatremia, migraines but none for years, hepatitis A as a child , hemorrhoids , osteoporosis, fragile skin. History of Any Multi-Drug Resistant Organisms: None Reported Past Surgical History: Tubal Ligation Additional Past Surgical History / Comment(s): Bilateral eye surgery-daughter thinks it was for glaucoma. Past Anesthesia/Blood Transfusion Reactions: No Reported Reaction Additional Past Anesthesia/Blood Transfusion Reaction / Comment(s): Pt has never recieved blood. Past Psychological History: No Psychological Hx Reported Smoking Status: Former smoker Past Alcohol Use History: None Reported Past Drug Use History: None Reported - Past Family History Father History Unknown: Yes Family Medical History: No Reported History Additional Family Medical History / Comment(s): Father when pt was young. Mother Family Medical History: Coronary Artery Disease (CAD), Myocardial Infarction (LA ) Additional Family Medical History / Comment(s): Mother had CABG General Exam Limitations: physical limitation General appearance: alert, anxious, in distress Head exam: Present: atraumatic, normocephalic, normal inspection Eye exam: Present: normal appearance, PERRL, EOMI. Absent: scleral icterus, conjunctival injection, periorbital swelling ENT exam: Present: normal exam, mucous membranes moist Neck exam: Present: normal inspection. Absent: tenderness, meningismus, lymphadenopathy Respiratory exam: Present: respiratory distress, wheezes, accessory muscle use, decreased breath sounds, prolonged expiratory. Absent: rales, rhonchi, stridor Cardiovascular Exam: Present: normal rhythm, tachycardia, normal heart sounds. Absent: systolic murmur, diastolic murmur, rubs, gallop, clicks GI/Abdominal exam: Present: soft, normal bowel sounds. Absent: distended, tenderness, guarding, rebound, rigid Extremities exam: Present: normal inspection, full ROM, normal capillary refill. Absent: tenderness, pedal edema, joint swelling, calf tenderness Back exam: Present: normal inspection Neurological exam: Present: alert, oriented X3, CN II-XII intact Psychiatric exam: Present: normal affect, normal mood Skin exam: Present: warm, dry, intact, normal color. Absent: rash Course Vital Signs 06/20/17 06/20/17 06/20/17 09:54 10:11 10:15 Temperature 98.1 F Pulse Rate 98 113 H 122 H Respiratory 18 26 H Rate Blood Pressure 205/94 169/81 O2 Sat by Pulse 98 93 L Oximetry 06/20/17 06/20/17 10:30 10:44 Temperature Pulse Rate 120 H 120 H Respiratory 25 H Rate Blood Pressure 154/74 O2 Sat by Pulse 100 Oximetry - Reevaluation(s) Reevaluation #1: 06/20/17 10:49 Patient in severe respiratory distress despite breathing treatment upon initial arrival to emergency room, patient placed on BiPAP, patient's resting comfortably, improving EKG Findings - EKG Comments: EKG Findings:: EKG shows sinus tachycardia rate 122, GA 134, QRS 68, QTC 501 Medical Decision Making - Medical Decision Making 72 female the ER for evaluation of significant shortness of breath, COPD exacerbation, hypoxia. Patient be admitted, continued BiPAP, continue pulmonary support - Lab Data Result diagrams: 06/20/17 09:56 06/20/17 09:56 Lab Results 06/20/17 06/20/17 06/20/17 Range/Units 09:56 09:56 09:56 WBC 9.3 (3.8-10.6) k/uL RBC 4.37 (3.80-5.40) m/uL Hgb 13.8 (11.4-16.0) gm/dL Hct 43.7 (34.0-46.0) % MCV 100.0 D (80.0-100.0) fL MCH 31.5 (25.0-35.0) pg MCHC 31.5 (31.0-37.0) g/dL RDW 14.8 (11.5-15.5) % Plt Count 228 (150-450) k/uL Neutrophils % 90 % Lymphocytes % 6 % Monocytes % 3 % Eosinophils % 0 % Basophils % 0 % Neutrophils # 8.4 H (1.3-7.7) k/uL Lymphocytes # 0.5 L (1.0-4.8) k/uL Monocytes # 0.3 (0-1.0) k/uL Eosinophils # 0.0 (0-0.7) k/uL Basophils # 0.0 (0-0.2) k/uL Macrocytosis Slight PT (9.0-12.0) sec INR (<1.2) APTT (22.0-30.0) sec Sodium 138 (137-145) mmol/L Potassium 3.8 (3.5-5.1) mmol/L Chloride 94 L (98-107) mmol/L Carbon Dioxide 41 H* (22-30) mmol/L Anion Gap 3 mmol/L BUN 17 (7-17) mg/dL Creatinine 0.45 L (0.52-1.04) mg/dL Est GFR (MDRD) Af Amer >60 (>60 ml/min/1.73 sqM) Est GFR (MDRD) Non-Af >60 (>60 ml/min/1.73 sqM) Glucose 108 H (74-99) mg/dL Calcium 9.0 (8.4-10.2) mg/dL Magnesium 2.0 (1.6-2.3) mg/dL Total Bilirubin 0.5 (0.2-1.3) mg/dL AST 22 (14-36) U/L ALT 52 (9-52) U/L Alkaline Phosphatase 58 (38-126) U/L NT-Pro-B Natriuret Pep 320 pg/mL Total Protein 5.7 L (6.3-8.2) g/dL Albumin 3.3 L (3.5-5.0) g/dL 06/20/17 Range/Units 09:56 WBC (3.8-10.6) k/uL RBC (3.80-5.40) m/uL Hgb (11.4-16.0) gm/dL Hct (34.0-46.0) % MCV (80.0-100.0) fL MCH (25.0-35.0) pg MCHC (31.0-37.0) g/dL RDW (11.5-15.5) % Plt Count (150-450) k/uL Neutrophils % % Lymphocytes % % Monocytes % % Eosinophils % % Basophils % % Neutrophils # (1.3-7.7) k/uL Lymphocytes # (1.0-4.8) k/uL Monocytes # (0-1.0) k/uL Eosinophils # (0-0.7) k/uL Basophils # (0-0.2) k/uL Macrocytosis PT 9.7 (9.0-12.0) sec INR 1.0 (<1.2) APTT 20.1 L (22.0-30.0) sec Sodium (137-145) mmol/L Potassium (3.5-5.1) mmol/L Chloride (98-107) mmol/L Carbon Dioxide (22-30) mmol/L Anion Gap mmol/L BUN (7-17) mg/dL Creatinine (0.52-1.04) mg/dL Est GFR (MDRD) Af Amer (>60 ml/min/1.73 sqM) Est GFR (MDRD) Non-Af (>60 ml/min/1.73 sqM) Glucose (74-99) mg/dL Calcium (8.4-10.2) mg/dL Magnesium (1.6-2.3) mg/dL Total Bilirubin (0.2-1.3) mg/dL AST (14-36) U/L ALT (9-52) U/L Alkaline Phosphatase (38-126) U/L NT-Pro-B Natriuret Pep pg/mL Total Protein (6.3-8.2) g/dL Albumin (3.5-5.0) g/dL - Radiology Data Radiology results: report reviewed (Chest x-rays negative), image reviewed Critical Care Time Critical Care Time: Yes Total Critical Care Time: 31 Disposition Clinical Impression: COPD exacerbation, Respiratory failure with hypoxia and hypercapnia, Acute exacerbation of chronic obstructive airways disease, Weakness Disposition: ADMITTED IP TO THIS [facility] Condition: Serious Referrals: Gumaro Cummings DO [Primary Care Provider] - 1-2 days
[2017-06-20 10:15] LABS: Basophils % (A) 0 %; Eosinophils % (A) 0 %; HCT 43.7 % (34.0-46.0); HGB 13.8 gm/dL (11.4-16.0); Lymphocytes # (A) 0.5 k/uL (1.0-4.8); Lymphocytes % (A) 6 %; MCH 31.5 pg (25.0-35.0); MCHC 31.5 g/dL (31.0-37.0); Macrocytosis Slight; Mean Platelet Volume 8.2; Monocytes # (A) 0.3 k/uL (0-1.0); Monocytes % (A) 3 %; Neutrophils # (A) 8.4 k/uL (1.3-7.7); Neutrophils % (A) 90 %; Platelet Count 228 k/uL (150-450); RBC 4.37 m/uL (3.80-5.40); RDW 14.8 % (11.5-15.5); WBC 9.3 k/uL (3.8-10.6)
[2017-06-20 10:26] LABS: ALT 52 U/L (9-52); AST 22 U/L (14-36); Albumin 3.3 g/dL (3.5-5.0); Alkaline Phosphatase 58 U/L (38-126); Blood Urea Nitrogen 17 mg/dL (7-17); Chloride 94 mmol/L (98-107); Glucose 108 mg/dL (74-99); Potassium 3.8 mmol/L (3.5-5.1); Sodium 138 mmol/L (137-145); Total Bilirubin 0.5 mg/dL (0.2-1.3); Total Protein 5.7 g/dL (6.3-8.2)
[2017-06-20 10:27] LABS: Prothrombin Time 9.7 sec (9.0-12.0)
[2017-06-20 10:33] LABS: Anion Gap 3 mmol/L; Partial Thromboplastin Time 20.1 sec (22.0-30.0)
[2017-06-20 10:37] LABS: Carbon Dioxide 41 mmol/L (22-30)
[2017-06-20 10:50] LABS: Creatine Kinase MB 2.1 ng/mL (0.0-2.4); Troponin I 0.012 ng/mL (0.000-0.034)
--- NOTE | 2017-06-20 11:04 | XR ---
EXAMINATION TYPE: XR chest 1V portable DATE OF EXAM: 06/20/2017 Comparison: 06/16/2017 Clinical History: 72 year-old female shortness of breath Findings: Heart normal size. Atherosclerotic arch calcifications. Hyperinflation with relative upper lung lucen cies and mild interstitial prominence. Biapical pleural-parenchymal scarring. No consolidation or ple ural effusion. Small nodularity at the right base probably corresponds to small Bochdalek hernia fabián elating with the 06/16/2017 CT. Impression: Bullous emphysema. Chronic appearing parenchymal changes, no definite acute process.
[2017-06-20] MEDS ORDERED: SODIUM CHLORIDE 0.9% 500 ML IV ONE (11:57)
[2017-06-20] MEDS ORDERED: SODIUM CHLORIDE 0.9% 1,000 ML IV ONE (11:57)
--- NOTE | 2017-06-20 13:56 | P.CNPUL ---
History of Present Illness Consult date: 06/20/17 Requesting physician: Ramiro Lugo Reason for consult: dyspnea Chief complaint: Shortness of breath History of present illness: This is a very pleasant 72-year-old female patient who follows with Dr. Cummings as her primary care physician. She has a history of hypertension, hyperlipidemia. She also has a history of severe oxygen dependent Gold stage III/for chronic obstructive pulmonary disease. Her FEV1 value is 33% of predicted. She follows with Dr. Parker in our office for the same. She has been maintained on Combivent, Spiriva, theophylline and albuterol in the outpatient setting. She has had multiple admissions to the hospital for COPD exacerbations. She most recently was here and had ventilatory dependent respiratory failure. She was subsequently recovered and discharged home on . She re-presented to the emergency room today 06/20/2017 with complaints of increasing shortness of breath, cough and congestion. Her chest x -ray reveals elevated and so of bolus emphysema and chronic parenchymal changes but no acute pulmonary process. She is currently seen in the emergency room. She is on BiPAP at 12/5 and 40% FiO2 to maintain O2 saturations in the 90s. She is awake and alert. She is in moderate respiratory distress. Dr. Parker had spoken to her in the past regarding CODE STATUS and she continues to wish to remain a full code. She is currently hypotensive and receiving fluid boluses. She is tachycardic. She is afebrile. No leukocytosis. Hemoglobin 13.8. Bicarb 41 which is good for her. Creatinine 0.45. ProBNP 320. Troponin 0.012. Review of Systems 14 point review of systems was conducted. All negative other than as mentioned in the HPI. Past Medical History Past Medical History: Asthma, COPD, Eye Disorder, Hyperlipidemia, Hypertension, Pneumonia, Respiratory Disorder, Skin Disorder Additional Past Medical History / Comment(s): Pt recently admitted 06/16/17 with acute on chronic hypercapnic and hypoxic respiratory failure, acute on chronic COPD (end stage). Other Hx; Advanced oxygen and steroid dependent, chronic hypoxic and hypercapnic respiratory failure, vented once in past, bronchitis, cataracts/glaucoma bilaterally, previous UTI, hyponatremia, migraines but none for years, hepatitis A as a child , hemorrhoids, osteoporosis , fragile skin. History of Any Multi-Drug Resistant Organisms: None Reported Past Surgical History: Tubal Ligation Additional Past Surgical History / Comment(s): Bilateral eye surgery-thinks it was for glaucoma. Past Anesthesia/Blood Transfusion Reactions: No Reported Reaction Additional Past Anesthesia/Blood Transfusion Reaction / Comment(s): Pt has never recieved blood. Past Psychological History: No Psychological Hx Reported Additional Psychological History / Comment(s): Pt recently discharged from [facility] to home. She is back home with her daughter, Lisa living with her. She has [facility]. She has physical therapy. She received her BSC. She has not been ambulatory lately. She has Patient has progressive COPD that is steroid and oxygen dependent. She has a nebulizer. She has a seated rolling walker. Pt does not drive, family takes her to [place] normally. Smoking Status: Former smoker Past Alcohol Use History: None Reported Additional Past Alcohol Use History / Comment(s): Pt started smoking in 1962 and quit in 2012 Past Drug Use History: None Reported - Past Family History Father History Unknown: Yes Family Medical History: No Reported History Additional Family Medical History / Comment(s): Father when pt was young. Mother Family Medical History: Coronary Artery Disease (CAD), Myocardial Infarction (MS ) Additional Family Medical History / Comment(s): Mother had CABG Medications and Allergies Home Medications Medication Instructions Recorded Confirmed Type Albuterol Sulfate [Proair Hfa] 2 puff INHALATION RT-Q4H PRN 10/29/13 06/20/17 History Isosorbide Mononitrate ER [Imdur] 30 mg PO DAILY 10/29/13 06/20/17 History Theophylline 24 Hour [Benigno-24] 300 mg PO DAILY 10/29/13 06/20/17 History Lisinopril [Zestril] 20 mg PO BID 09/23/15 06/20/17 History Furosemide [Lasix] 20 mg PO Q48H 12/16/16 06/20/17 History Formoterol Fumarate [Perforomist] 20 mcg INHALATION RT-BID #1 nebu 06/01/17 Rx Pantoprazole [Protonix] 40 mg PO AC-BRKFST #30 tablet.dr 06/01/17 06/20/17 Rx Nystatin 100,000 Unit/ml Susp 500,000 unit PO QID cup 06/14/17 06/20/17 Rx [Mycostatin Oral Susp] Bisacodyl [Dulcolax] 10 mg RECTAL DAILY PRN 06/16/17 06/20/17 History Cholecalciferol [Vitamin D3] 2,000 unit PO DAILY@1700 06/16/17 06/20/17 History Ipratropium-Albuterol Nebulize 3 ml INHALATION RT-QID 06/16/17 06/20/17 History [Duoneb 0.5 mg-3 mg/3 ml Soln] Ipratropium/Albuterol Sulfate 2 puff INHALATION RT-QID 06/16/17 06/20/17 History [Combivent Respimat Inhaler] Magnesium Hydroxide [Milk of 2,400 mg PO DAILY PRN 06/16/17 06/20/17 History Magnesia] Na Phos,M-B/Na Phos,Di-Ba [Fleet 133 ml RECTAL DAILY PRN 06/16/17 06/20/17 History Adult] predniSONE See Taper PO DAILY #30 tab 06/17/17 06/20/17 Rx ALPRAZolam [Xanax] 0.25 mg PO TID@0900,1600,2200 06/20/17 06/20/17 History Budesonide [Pulmicort] 0.25 mg INHALATION RT-BID 06/20/17 06/20/17 History Allergies Allergy/AdvReac Type Severity Reaction Status Date / Time alendronate sodium Allergy Swelling Verified 06/20/17 09:58 [From Fosamax] Latex, Natural Rubber Allergy Rash/Hives Verified 06/20/17 09:58 levofloxacin [From Levaquin] AdvReac Diarrhea Verified 06/20/17 09:58 Physical Exam Vitals: Vital Signs Temp Pulse Resp BP Pulse Ox 06/20/17 13:08 97.6 F 115 H 26 H 100/54 92 L 06/20/17 11:55 129 H 25 H 86/50 100 06/20/17 11:20 125 H 90/53 100 06/20/17 11:00 124 H 06/20/17 10:45 125 H 06/20/17 10:44 120 H 25 H 154/74 100 06/20/17 10:30 120 H 06/20/17 10:15 122 H 06/20/17 10:11 98.1 F 113 H 26 H 169/81 93 L 06/20/17 09:54 98 18 205/94 98 Intake and Output 06/19/17 06/20/17 06/20/17 22:59 06:59 14:59 Other: Weight 54.431 kg Patient Weight 06/21/17 06:59 Weight 54.431 kg GENERAL EXAM: Frail, cachectic. Alert, fairly comfortable in no apparent distress. HEAD: Normocephalic. EYES: Normal reaction of pupils, equal size. NOSE: Clear with pink turbinates. THROAT: No erythema or exudates. NECK: No masses, no JVD. CHEST: No chest wall deformity. LUNGS: Equal air entry with bilateral end expiratory wheeze. Diminished throughout. CVS: S1 and S2 normal with no audible murmur, regular rhythm. Tachycardic. ABDOMEN: No hepatosplenomegaly, normal bowel sounds, no guarding or rigidity. SPINE: No scoliosis or deformity SKIN: No rashes or there is multiple areas of ecchymosis and thin skin secondary to chronic steroid use. CENTRAL NERVOUS SYSTEM: No focal deficits, tone is normal in all 4 extremities. EXTREMITIES: There is no peripheral edema. No clubbing, no cyanosis. Peripheral pulses are intact. Changes of chronic venous stasis. Results - Laboratory Findings CBC and BMP: 06/20/17 09:56 06/20/17 09:56 PT/INR, D-dimer PT 9.7 sec (9.0-12.0) 06/20/17 09:56 INR 1.0 (<1.2) 06/20/17 09:56 Abnormal lab findings: Abnormal Labs 06/20/17 06/20/17 06/20/17 09:56 09:56 09:56 Neutrophils # 8.4 H Lymphocytes # 0.5 L APTT Chloride 94 L Carbon Dioxide 41 H* Creatinine 0.45 L Glucose 108 H Total Creatine Kinase 24 L Total Protein 5.7 L Albumin 3.3 L 06/20/17 09:56 Neutrophils # Lymphocytes # APTT 20.1 L Chloride Carbon Dioxide Creatinine Glucose Total Creatine Kinase Total Protein Albumin - Diagnostic Findings Chest x-ray: image reviewed Assessment and Plan Assessment: Impression: #1 Acute exacerbation of severe oxygen dependent end-stage Gold stage III/for chronic obstructive pulmonary disease. FEV1 value 33% of predicted. #2 Chronic hypoxic and hypercapnic respiratory failure with multiple admissions for exacerbations. Currently requiring BiPAP 12/5 at 40% FiO2. #3 Hypertension, history of. #4 Hyperlipidemia. #5 Osteoporosis. #6 History of chronic tobacco dependence. Plan: The patient was seen and evaluated by Dr. Pendleton. Her chest x-ray and labs were reviewed. The patient will be admitted again today. She'll continue on BiPAP 12/5 on 40% FiO2 to maintain O2 saturations in the 90s. She'll be started on IV Solu-Medrol 60 mg every 6 hours, DuoNeb inhalations every 3 times a day and when necessary, Pulmicort and begun inhalations twice a day. Empiric antibiotics in the form of azithromycin. She is on Lovenox for DVT prophylaxis. Will add Protonix for GI prophylaxis. We'll have ongoing discussions with her and her family regarding CODE STATUS and even possible hospice referral. In the interim, we'll continue with full supportive care. We 'll continue to follow and make further recommendations based on her clinical status. I, the cosigning physician, performed a history & physical examination of the patient. Lungs sounds have bilateral end expiratory wheeze. Diminished throughout.. Maintaining good O2 saturations in the 90s on 40% FiO2. I discussed the assessment and plan of care with my nurse practitioner, Francia Crump. I attest to the above note as dictated by her. Time with Patient: Greater than 30
[2017-06-20] MEDS ORDERED: ACETAMINOPHEN TAB 500 MG TAB PO STA (14:37)
[2017-06-20] MEDS: AZITHROMYCIN 500 MG TAB PO SCH (14:48)
[2017-06-20] MEDS: IPRATROPIUM-ALBUTEROL 3 ML NEB INHALATION SCH ×2 (15:22→19:26)
[2017-06-20] MEDS ORDERED: BISACODYL 10 MG SUPP RECTAL PRN (17:12)
[2017-06-20] MEDS ORDERED: MAGNESIUM HYDROXIDE 2,400 MG/10 ML CUP PO PRN (17:12)
[2017-06-20] MEDS: methylPREDNISolone SOD SUCCI 125 MG/2 ML VIAL IV SCH ×2 (18:21→23:02)
[2017-06-20] MEDS: NYSTATIN 100,000 UNIT/ML SUSP 500,000 UNIT/5 ML CUP PO SCH ×2 (18:21→21:55)
[2017-06-20] MEDS: FUROSEMIDE 20 MG TAB PO SCH (18:22)
[2017-06-20] MEDS: FORMOTEROL FUMARATE 20 MCG/2 ML NEBU INHALATION SCH (19:26)
[2017-06-20] MEDS: BUDESONIDE 1 MG/2 ML NEBU INHALATION SCH (19:26)
[2017-06-20] MEDS: LISINOPRIL 20 MG TAB PO SCH (20:21)
--- NOTE | 2017-06-20 20:23 | HP ---
HISTORY AND PHYSICAL DATE OF ADMISSION: June 20, 2017. PRESENTING COMPLAINT: Short of breath, wheezing. HISTORY OF PRESENTING COMPLAINT: This is a 72-year-old patient who since June 29 has had four admissions to the hospital. During one of them, the patient was actually intubated. Patient has got end- stage COPD. Very poor prognosis. Even hospice but the patient wanted to remain FULL CODE. Patient just went home 3 days ago. Presents with not able to breathe, very short of breath at rest, which remains at baseline. The patient is put on the BiPAP. Slight cough, not much sputum. No fever. Decreased appetite, tired. Run down. The patient's other chronic stable medical conditions include hyperlipidemia, hypertension, osteoporosis. REVIEW OF SYSTEMS: Constitutional: Tired. HEENT none. Respiratory as above. Cardiovascular none. Gastrointestinal: Decreased appetite. Genitourinary: None. Musculoskeletal: Some aches and pains in the joints. Dermatological: Diffuse bruising. Hematological as above. Psychiatry: Anxious. Neurological none. PAST MEDICAL HISTORY: COPD, hyperlipidemia, hypertension, home oxygen, chronic hypoxic and hypercapnic respiratory failure, hemorrhoids, osteoporosis. PAST SURGICAL HISTORY: Tubal ligation, glaucoma surgery. PSYCH HISTORY: Of anxiety. SOCIAL HISTORY: Patient has gone home for the last admission, had [facility]. She is barely ambulatory. Has oxygen at home. The patient smoked from 1962. Stopped smoking in 2012. That is close to 60 years. FAMILY HISTORY: Reviewed, noncontributory to presentation. MEDICATIONS: 1. mg p.o. daily. 2. Protonix 40 mg with breakfast. 3. Mycostatin 5000 p.o. q.i.d. 4. 133 mL daily p.r.n. 5. Milk of magnesia p.r.n. 6. Zestril 20 mg b.i.d. 7. Imdur ER 30 daily. 8. Combivent 2 puffs q.i.d. 9. DuoNeb q.i.d. 10.Lasix 20 mg every 48 hours. 11.Perforomist 20 mcg b.i.d. 12.Vitamin D3 2000 units p.o. daily. 13.Pulmicort 0.25 inhalation b.i.d. 14.Dulcolax 10 mg rectal daily p.r.n. 15.ProAir 2 puffs q.4h p.r.n. 16.Xanax 0.25 p.o. t.i.d. ALLERGIES: TO FOSAMAX, LATEX, LEVAQUIN. PHYSICAL EXAMINATION: Vital signs on presentation: Temperature 97.3, pulse 81, respiration 20, blood pressure 100/63, pulse ox 100% on BiPAP. GENERAL APPEARANCE: Thin build, lying in bed with a BiPAP, very short of breath at rest, barely able to speak. Daughter in law is at the bedside. Eyes pupils equal. Conjunctivae normal. HEENT: Oral cavity dry mucous membranes. External appearance of nose and ears normal. Oral cavity as above. Neck: JVD not raised. Mass not palpable. Respiratory effort increased, not able to speak in full sentences. Accessory muscles are working. Poor air entry with prolonged expiration. Cardiovascular 1st and second sounds normal. No edema. ABDOMEN: Soft, nontender. Liver and spleen not palpable. Lymphatics: No lymph nodes palpable in neck or axillae. Psychiatry: Alert and oriented times three. Mood and affect very anxious-appearing. Neurological: Pupils equal. Cranial nerves grossly intact. Power and sensation grossly intact. Dermatological: Diffuse bruising. INVESTIGATIONS: White count 9.3, hemoglobin 13.8, potassium 3.8, BUN 17, creatinine 0.45. Chest x-ray: Bullous emphysema. Nil acute. ASSESSMENT: 1. Acute exacerbation of end-stage chronic obstructive pulmonary disease in a patient with multiple admissions. 2. Acute hypoxic respiratory failure from #1. 3. Chronic hypoxic and hypercapnic respiratory failure. 4. Normocytic anemia cause unknown. 5. Essential hypertension. 6. Hyperlipidemia. 7. Medical debility due to underlying chronic obstructive pulmonary disease. PLAN: Patient is started on nebulized bronchodilators, IV steroids. Pulmonary was consulted. BiPAP support. Did speak to the patient's daughter at the bedside again and suggested hospice as the patient's condition is very poor and the patient is having recurrent admissions with which she is not able to improve her capacity. Also spoke to Dr. Pendleton of Pulmonary and is agreeable to the same. We will see if the patient decides to go hospice. It will be more comfortable for her. In the meantime, we will continue with the above treatment plan. MMODL / IJN: [id number] /
[2017-06-20] MEDS: ALPRAZolam 0.25 MG TAB PO SCH (21:55)
[2017-06-21 05:43] LABS: Glucose,Whole Blood 116 mg/dL (75-99)
[2017-06-21] MEDS: INSULIN ASPART 100 UNIT/ML 1 ML 10 ML VIAL SQ SCH ×4 (06:12→21:47)
[2017-06-21] MEDS: methylPREDNISolone SOD SUCCI 125 MG/2 ML VIAL IV SCH ×4 (06:16→22:48)
[2017-06-21] MEDS: IPRATROPIUM-ALBUTEROL 3 ML NEB INHALATION SCH ×4 (07:55→19:05)
[2017-06-21] MEDS: BUDESONIDE 1 MG/2 ML NEBU INHALATION SCH ×2 (07:55→19:05)
[2017-06-21] MEDS: FORMOTEROL FUMARATE 20 MCG/2 ML NEBU INHALATION SCH ×2 (07:55→19:05)
[2017-06-21] MEDS: ISOSORBIDE MONONITRATE ER 30 MG TAB.ER.24H PO SCH (08:44)
[2017-06-21] MEDS: THEOPHYLLINE 24 HOUR 300 MG CAP.ER.24H PO SCH (08:44)
[2017-06-21] MEDS: AZITHROMYCIN 500 MG TAB PO SCH (08:44)
[2017-06-21] MEDS: LISINOPRIL 20 MG TAB PO SCH ×2 (08:44→21:47)
[2017-06-21] MEDS: ALPRAZolam 0.25 MG TAB PO SCH ×3 (08:44→21:47)
[2017-06-21] MEDS: ENOXAPARIN 40 MG/0.4 ML SYRINGE SQ SCH ×2 (08:44→08:55)
[2017-06-21] MEDS: PANTOPRAZOLE 40 MG/10 ML VIAL IVP SCH (08:45)
[2017-06-21] MEDS: NYSTATIN 100,000 UNIT/ML SUSP 500,000 UNIT/5 ML CUP PO SCH ×4 (08:45→21:47)
[2017-06-21 11:59] VITALS: BMI 21.9
[2017-06-21 12:42] LABS: Glucose,Whole Blood 148 mg/dL (75-99)
--- NOTE | 2017-06-21 13:28 | P.PN ---
Subjective Progress Note Date: 06/21/17 Principal diagnosis: Acute exacerbation of severe oxygen-dependent end-stage Gold stage III COPD This is a very pleasant 72-year-old female patient who follows with Dr. Cummings as her primary care physician. She has a history of hypertension, hyperlipidemia. She also has a history of severe oxygen dependent Gold stage III/for chronic obstructive pulmonary disease. Her FEV1 value is 33% of predicted. She follows with Dr. Parker in our office for the same. She has been maintained on Combivent, Spiriva, theophylline and albuterol in the outpatient setting. She has had multiple admissions to the hospital for COPD exacerbations. She most recently was here and had ventilatory dependent respiratory failure. She was subsequently recovered and discharged home on . She re-presented to the emergency room today 06/20/2017 with complaints of increasing shortness of breath, cough and congestion. Her chest x -ray reveals elevated and so of bolus emphysema and chronic parenchymal changes but no acute pulmonary process. She is currently seen in the emergency room. She is on BiPAP at 12/5 and 40% FiO2 to maintain O2 saturations in the 90s. She is awake and alert. She is in moderate respiratory distress. Dr. Parker had spoken to her in the past regarding CODE STATUS and she continues to wish to remain a full code. She is currently hypotensive and receiving fluid boluses. She is tachycardic. She is afebrile. No leukocytosis. Hemoglobin 13.8. Bicarb 41 which is good for her. Creatinine 0.45. ProBNP 320. Troponin 0.012. On 06/21/2017 patient seen in follow-up on selective care unit. Currently off the BiPAP, did wear through the night. Remains on 3 L per nasal cannula, dyspneic at rest, dyspneic with conversation, and dyspneic with any minimal exertion. Slightly tachycardic with a rate of 102-2109 BPM. Other vitals are stable. Chest x-ray from 06/21/2017 was reviewed and shows Bullous emphysema, no definite acute process. CODE STATUS was again discussed with the patient, she wants to continue with full code measures, she is not opposed to mechanical ventilation. Family is inquiring about trying to get the patient improved for the home BiPAP use again. Objective - Vital Signs Vital signs: Vital Signs Temp 97.8 F 06/21/17 08:00 Pulse 109 H 06/21/17 12:00 Resp 20 06/21/17 12:00 BP 128/69 06/21/17 12:00 Pulse Ox 95 06/21/17 12:00 Intake & Output 06/20/17 06/21/17 06/21/17 18:59 06:59 18:59 Intake Total 1100 Output Total 500 Balance 1100 -500 Weight 54.431 kg 54.5 kg 54.5 kg Intake: IV 1100 Sodium Chloride 0.9% 1, 1100 000 ml @ 100 mls/hr IV . Q10H STA Rx#:[id number] Output: Urine 500 Other: Voiding Method Bedpan Diaper # Voids 3 1 - Exam GENERAL EXAM: Frail, cachectic. Alert, fairly comfortable in no apparent distress. HEAD: Normocephalic. EYES: Normal reaction of pupils, equal size. NOSE: Clear with pink turbinates. THROAT: No erythema or exudates. NECK: No masses, no JVD. CHEST: No chest wall deformity. LUNGS: Equal air entry with bilateral end expiratory wheeze. Diminished throughout. CVS: S1 and S2 normal with no audible murmur, regular rhythm. Tachycardic. ABDOMEN: No hepatosplenomegaly, normal bowel sounds, no guarding or rigidity. SPINE: No scoliosis or deformity SKIN: No rashes or there is multiple areas of ecchymosis and thin skin secondary to chronic steroid use. CENTRAL NERVOUS SYSTEM: No focal deficits, tone is normal in all 4 extremities. EXTREMITIES: There is no peripheral edema. No clubbing, no cyanosis. Peripheral pulses are intact. Changes of chronic venous stasis. - Labs CBC & Chem 7: 06/20/17 09:56 06/20/17 09:56 Labs: Abnormal Lab Results - Last 24 Hours (Table) 06/21/17 06/21/17 Range/Units 05:41 11:44 POC Glucose (mg/dL) 116 H 148 H (75-99) mg/dL Microbiology - Last 24 Hours (Table) 06/20/17 09:56 Blood Culture - Preliminary Blood No Growth after 24 hours Assessment and Plan Plan: Assessment: #1 Acute exacerbation of severe oxygen dependent end-stage Gold stage III/for chronic obstructive pulmonary disease. FEV1 value 33% of predicted. #2 Chronic hypoxic and hypercapnic respiratory failure with multiple admissions for exacerbations. Currently requiring BiPAP 12/5 at 40% FiO2. #3 Hypertension, history of. #4 Hyperlipidemia. #5 Osteoporosis. #6 History of chronic tobacco dependence. Plan: Continue all current treatments, we'll obtain an ABG on 2 L per nasal cannula, which is her home dose of oxygen. The family and the patient are interested in trying to get the patient approved for home BiPAP use again. " Status was again discussed, patient wants to remain a full code, not opposed to intubation and mechanical ventilation. Continue Zithromax, continue nebulized treatments, GI DVT prophylaxis. Chest x-ray was negative for any acute pulmonary process. We'll continue to follow I performed a history & physical examination of the patient and discussed their management with my nurse practitioner, Chani Toney. I reviewed the nurse practitioner's note and agree with the documented findings and plan of care. Lung sounds are positive for diffuse wheezes throughout the lung kent. The findings and the impression was discussed with the patient. I attest to the documentation by the nurse practitioner. Time with Patient: Less than 30
[2017-06-21 13:59] LABS: ABG Base Excess 4.3 mmol/L; ABG HCO3 28 mmol/L (21-25); ABG Oxygen Saturation 96.2 % (94-97); ABG PCO2 38 mmHg (35-45); ABG PH 7.48 (7.35-7.45); ABG PO2 77 mmHg (83-108); ABG TCO2 29 mmol/L (19-24)
--- NOTE | 2017-06-21 16:42 | P.PN ---
Progress Note - Text Progress Note Date: 06/21/17 DATE OF SERVICE: 06/21/2017 PRESENTING COMPLAINT: Increasing shortness of breath, wheezing. HISTORY OF PRESENT ILLNESS: 72-year-old female who since May 29 has had 4 admissions to the hospital with a and intubation during 1 of them as well as having end-stage COPD prognosis very poor. Patient was discharged 3 days ago found herself unable to breathe very short of breath at rest which is her baseline. Brought in with an acute COPD exacerbation. INTERVAL HISTORY: 06/21/2017: Sitting up in bed daughter and family member at the bedside. No acute overnight events was on the BiPAP overnight and is using the BiPAP off and on throughout the day. Currently on nasal cannula. Family had some questions regarding BiPAP and its use as well as availability of home and at extended care facilities. Questions answered. Tolerating her diet, eating in between 30 and 40% of her meals, up with assistance, becomes quite winded with any type of movement any type of daily activities. Last BM prior to admission. REVIEW OF SYSTEMS: Done for constitutional ,cardiovascular, GI, pulmonary with relevant findings as above. CURRENT MEDICATIONS DuoNeb, Xanax, Zithromax, Dulcolax, Pulmicort, vitamin D3, Lovenox, Perforomist , Lasix, NovoLog, Imdur, Zestril, milk of Magnesia, Solu-Medrol, Mycostatin, theophylline.Protonix, PHYSICAL EXAM VITAL SIGNS: Temperature 97.8, pulse 105, respiratory rate 20, blood pressure 170/86, oxygen saturation 94% on 3 L. GENERAL APPEARANCE: Thin build. Sitting up in bed, anxious appearing. HENT: Normocephalic, JVD not raised. Mass not palpable. Oral cavity dry, external appearance of ears and nose normal. EYES:Pupils equal. Conjunctiva normal. RESPIRATORY: Respiratory effort increased, difficult for her to speak in full sentences. Lungs poor air entry with prolonged expiration. CARDIOVASCULAR: First and second sounds normal. No edema. ABDOMEN: Soft. Liver and spleen not palpable. No tenderness. No mass palpable. PSYCHIATRY: Alert and oriented x3. Mood and affect anxious appearing. INTEGUMENT: Diffuse bruising on upper and lower extremities. INVESTIGATIONS: LAB's: Blood gas: 7.48, 38, 77, 28, 29, 4.3. ASSESSMENT: -Acute exacerbation of end-stage chronic obstructive pulmonary disease in a patient with multiple admissions. -Acute chronic respiratory failure from #1. -Chronic hypoxic and hypercapnic respiratory failure. Normocytic anemia cause unknown. -Essential hypertension. -Hyperlipidemia. -Medical debility due to underlying chronic obstructive partner disease. PLAN: Continue continue antibiotics in the form of Zithromax nebulized bronchodilators and IV steroid., family is very interested in getting the patient approved for home BiPAP use. This had been done and she was not approved on a previous admission. Patient continues to want remain a full code is unopposed to intubation and mechanical ventilation. Plan of care discussed at the bedside QUESTIONS answered to the best of my ability. we will continue to follow closely. PROGRAM PROJECT MANAGER statement: Patient was seen and examined by nurse practitioner Hailey Conner and all elements of the case discussed with attending Dr. Lugo
[2017-06-21] MEDS: CHOLECALCIFEROL 1,000 UNIT TAB PO SCH (16:48)
[2017-06-21 17:08] LABS: Glucose,Whole Blood 154 mg/dL (75-99)
[2017-06-21 20:56] LABS: Glucose,Whole Blood 157 mg/dL (75-99)
[2017-06-22] MEDS: methylPREDNISolone SOD SUCCI 125 MG/2 ML VIAL IV SCH ×4 (06:09→23:27)
[2017-06-22] MEDS: INSULIN ASPART 100 UNIT/ML 1 ML 10 ML VIAL SQ SCH ×4 (06:26→22:18)
[2017-06-22 06:28] LABS: Glucose,Whole Blood 148 mg/dL (75-99)
[2017-06-22 06:29] LABS: Anion Gap 5 mmol/L; Blood Urea Nitrogen 20 mg/dL (7-17); Calcium 8.6 mg/dL (8.4-10.2); Carbon Dioxide 33 mmol/L (22-30); Chloride 100 mmol/L (98-107); Glucose 119 mg/dL (74-99); Potassium 3.8 mmol/L (3.5-5.1); Sodium 138 mmol/L (137-145)
[2017-06-22] MEDS: ALPRAZolam 0.25 MG TAB PO SCH ×3 (08:14→22:18)
[2017-06-22] MEDS: AZITHROMYCIN 500 MG TAB PO SCH (08:14)
[2017-06-22] MEDS: ISOSORBIDE MONONITRATE ER 30 MG TAB.ER.24H PO SCH (08:15)
[2017-06-22] MEDS: LISINOPRIL 20 MG TAB PO SCH ×2 (08:15→22:18)
[2017-06-22] MEDS: ENOXAPARIN 40 MG/0.4 ML SYRINGE SQ SCH (08:15)
[2017-06-22] MEDS: NYSTATIN 100,000 UNIT/ML SUSP 500,000 UNIT/5 ML CUP PO SCH ×4 (08:16→22:18)
[2017-06-22] MEDS: THEOPHYLLINE 24 HOUR 300 MG CAP.ER.24H PO SCH (08:17)
[2017-06-22] MEDS: IPRATROPIUM-ALBUTEROL 3 ML NEB INHALATION SCH ×4 (09:33→20:17)
[2017-06-22] MEDS: BUDESONIDE 1 MG/2 ML NEBU INHALATION SCH ×2 (09:33→20:17)
[2017-06-22] MEDS: FORMOTEROL FUMARATE 20 MCG/2 ML NEBU INHALATION SCH ×2 (09:33→20:17)
[2017-06-22] MEDS: PANTOPRAZOLE 40 MG/10 ML VIAL IVP SCH (10:13)
--- NOTE | 2017-06-22 11:47 | P.CNOR ---
History of Present Illness - [facility] Consult date: 06/22/17 Consult reason: low back pain History of present illness: This is a 72-year-old female admitted with respiratory distress and exacerbation of COPD on 06/20/2017. She reportedly had complains of low back pain with right lower extremity pain. We're consulted for orthopedic spine evaluation. On consult today, the patient denies any low back or right leg pain. Her only extremity complaint is a blister to the left foot and ankle which is chronic. She states that she's had the blister since October 2015 secondary to a latex ALLERGY. She reports no radicular pain, numbness or tingling down the leg or weakness to the lower extremities. Past Medical History Past Medical History: Asthma, COPD, Eye Disorder, Hyperlipidemia, Hypertension, Pneumonia, Respiratory Disorder, Skin Disorder Additional Past Medical History / Comment(s): Pt recently admitted 06/16/17 with acute on chronic hypercapnic and hypoxic respiratory failure, acute on chronic COPD (end stage). Other Hx; Advanced oxygen and steroid dependent, chronic hypoxic and hypercapnic respiratory failure, vented once in past, bronchitis, cataracts/glaucoma bilaterally, previous UTI, hyponatremia, migraines but none for years, hepatitis A as a child , hemorrhoids, osteoporosis , fragile skin. History of Any Multi-Drug Resistant Organisms: None Reported Past Surgical History: Tubal Ligation Additional Past Surgical History / Comment(s): Bilateral eye surgery-thinks it was for glaucoma. Past Anesthesia/Blood Transfusion Reactions: No Reported Reaction Additional Past Anesthesia/Blood Transfusion Reaction / Comm: Pt has never recieved blood. Past Psychological History: No Psychological Hx Reported Additional Psychological History / Comment(s): Pt recently discharged from [facility] to home. She is back home with her daughter, Lisa living with her. She has [facility]. She has physical therapy. She received her BSC. She has not been ambulatory lately. She has Patient has progressive COPD that is steroid and oxygen dependent. She has a nebulizer. She has a seated rolling walker. Pt does not drive, family takes her to app normally. Smoking Status: Former smoker Past Alcohol Use History: None Reported Additional Past Alcohol Use History / Comment(s): Pt started smoking in 1962 and quit in 2012 Past Drug Use History: None Reported - Past Family History Father History Unknown: Yes Family Medical History: No Reported History Additional Family Medical History / Comment(s): Father when pt was young. Mother Family Medical History: Coronary Artery Disease (CAD), Myocardial Infarction (MA ) Additional Family Medical History / Comment(s): Mother had CABG Medications and Allergies Home Medications Medication Instructions Recorded Confirmed Type Albuterol Sulfate [Proair Hfa] 2 puff INHALATION RT-Q4H PRN 10/29/13 06/20/17 History Isosorbide Mononitrate ER [Imdur] 30 mg PO DAILY 10/29/13 06/20/17 History Theophylline 24 Hour [Benigno-24] 300 mg PO DAILY 10/29/13 06/20/17 History Lisinopril [Zestril] 20 mg PO BID 09/23/15 06/20/17 History Furosemide [Lasix] 20 mg PO Q48H 12/16/16 06/20/17 History Formoterol Fumarate [Perforomist] 20 mcg INHALATION RT-BID #1 nebu 06/01/17 Rx Pantoprazole [Protonix] 40 mg PO AC-BRKFST #30 tablet.dr 06/01/17 06/20/17 Rx Nystatin 100,000 Unit/ml Susp 500,000 unit PO QID cup 06/14/17 06/20/17 Rx [Mycostatin Oral Susp] Bisacodyl [Dulcolax] 10 mg RECTAL DAILY PRN 06/16/17 06/20/17 History Cholecalciferol [Vitamin D3] 2,000 unit PO DAILY@1700 06/16/17 06/20/17 History Ipratropium-Albuterol Nebulize 3 ml INHALATION RT-QID 06/16/17 06/20/17 History [Duoneb 0.5 mg-3 mg/3 ml Soln] Ipratropium/Albuterol Sulfate 2 puff INHALATION RT-QID 06/16/17 06/20/17 History [Combivent Respimat Inhaler] Magnesium Hydroxide [Milk of 2,400 mg PO DAILY PRN 06/16/17 06/20/17 History Magnesia] Na Phos,M-B/Na Phos,Di-Ba [Fleet 133 ml RECTAL DAILY PRN 06/16/17 06/20/17 History Adult] predniSONE See Taper PO DAILY #30 tab 06/17/17 06/20/17 Rx ALPRAZolam [Xanax] 0.25 mg PO TID@0900,1600,2200 06/20/17 06/20/17 History Budesonide [Pulmicort] 0.25 mg INHALATION RT-BID 06/20/17 06/20/17 History Allergies Allergy/AdvReac Type Severity Reaction Status Date / Time alendronate sodium Allergy Swelling Verified 06/20/17 09:58 [From Fosamax] Latex, Natural Rubber Allergy Rash/Hives Verified 06/20/17 09:58 levofloxacin [From Levaquin] AdvReac Diarrhea Verified 06/20/17 09:58 Physical Examination This is a pleasant 72-year-old female in no acute distress. Her daughter is present at bedside. Exam of the head and neck is unremarkable. She is on oxygen per nasal cannula and is slightly short of breath. She is able to carry conversation today. Exam of the thoracic and lumbar spine reveal no obvious deformity. There is no pain to palpation about the spine or paraspinal musculature. There is no pain about the sacrum. There is a bony prominence on the right aspect of the sacrum with no skin breakdown noted. This area is nontender. Exam the lower extremities reveals multiple areas of ecchymosis. She is able to lift each leg off the bed independently without pain. No pain with logroll bilaterally. There is a large blister about the medial aspect of the left foot and ankle which is intact and appears noninfectious. She has +2/4 pedal pulse bilaterally. She is able to wiggle toes without pain or difficulty. Straight leg raise is negative bilaterally. Results - Labs Labs: Abnormal Lab Results - Last 24 Hours (Table) 06/21/17 06/21/17 06/21/17 Range/Units 11:44 13:45 16:37 ABG pH 7.48 H (7.35-7.45) ABG pO2 77 L (83-108) mmHg ABG HCO3 28 H (21-25) mmol/L ABG Total CO2 29 H (19-24) mmol/L Carbon Dioxide (22-30) mmol/L BUN (7-17) mg/dL Creatinine (0.52-1.04) mg/dL Glucose (74-99) mg/dL POC Glucose (mg/dL) 148 H 154 H (75-99) mg/dL 06/21/17 06/22/17 06/22/17 Range/Units 20:55 05:38 06:16 ABG pH (7.35-7.45) ABG pO2 (83-108) mmHg ABG HCO3 (21-25) mmol/L ABG Total CO2 (19-24) mmol/L Carbon Dioxide 33 H (22-30) mmol/L BUN 20 H (7-17) mg/dL Creatinine 0.40 L (0.52-1.04) mg/dL Glucose 119 H (74-99) mg/dL POC Glucose (mg/dL) 157 H 148 H (75-99) mg/dL Microbiology - Last 24 Hours (Table) 06/20/17 09:56 Blood Culture - Preliminary Blood No Growth after 24 hours H & H 06/20/17 Range/Units 09:56 Hgb 13.8 (11.4-16.0) gm/dL Hct 43.7 (34.0-46.0) % Coagulation 06/20/17 Range/Units 09:56 INR 1.0 (<1.2) Result Diagrams: 06/20/17 09:56 06/22/17 05:38 Assessment and Plan (1) Acute exacerbation of chronic obstructive airways disease Current Visit: Yes Status: Acute Code(s): J44.1 - CHRONIC OBSTRUCTIVE PULMONARY DISEASE W (ACUTE) EXACERBATION SNOMED Code(s): 335605890 (2) Respiratory failure with hypoxia and hypercapnia Current Visit: Yes Status: Acute Code(s): J96.91 - RESPIRATORY FAILURE, UNSPECIFIED WITH HYPOXIA; J96.92 - RESPIRATORY FAILURE, UNSPECIFIED WITH HYPERCAPNIA SNOMED Code(s): 59741354 (3) Weakness Current Visit: Yes Status: Acute Code(s): R53.1 - WEAKNESS SNOMED Code(s) : 78810574 Plan: The clinical findings are discussed the patient. There were no lumbar x-rays ordered and I do not see the need for them at this time. The patient has no radicular findings on exam today and no low back pain or radicular complaints. She did inquire about the blister to her left foot which I advised her to leave intact. There is no dictation for orthopedic intervention at this time. Please call our office if the need for orthopedic care changes.
[2017-06-22 12:13] LABS: Glucose,Whole Blood 174 mg/dL (75-99)
[2017-06-22] MEDS ORDERED: HYDROcodone/APAP 5-325MG 1 EACH TAB PO PRN ×2 (12:38→13:35)
--- NOTE | 2017-06-22 14:01 | P.PN ---
Subjective Progress Note Date: 06/22/17 Principal diagnosis: Acute exacerbation of severe oxygen dependent end-stage Gold stage III COPD This is a very pleasant 72-year-old female patient who follows with Dr. Cummings as her primary care physician. She has a history of hypertension, hyperlipidemia. She also has a history of severe oxygen dependent Gold stage III/for chronic obstructive pulmonary disease. Her FEV1 value is 33% of predicted. She follows with Dr. Parker in our office for the same. She has been maintained on Combivent, Spiriva, theophylline and albuterol in the outpatient setting. She has had multiple admissions to the hospital for COPD exacerbations. She most recently was here and had ventilatory dependent respiratory failure. She was subsequently recovered and discharged home on . She re-presented to the emergency room today 06/20/2017 with complaints of increasing shortness of breath, cough and congestion. Her chest x -ray reveals elevated and so of bolus emphysema and chronic parenchymal changes but no acute pulmonary process. She is currently seen in the emergency room. She is on BiPAP at 12/5 and 40% FiO2 to maintain O2 saturations in the 90s. She is awake and alert. She is in moderate respiratory distress. Dr. Parker had spoken to her in the past regarding CODE STATUS and she continues to wish to remain a full code. She is currently hypotensive and receiving fluid boluses. She is tachycardic. She is afebrile. No leukocytosis. Hemoglobin 13.8. Bicarb 41 which is good for her. Creatinine 0.45. ProBNP 320. Troponin 0.012. On 06/21/2017 patient seen in follow-up on selective care unit. Currently off the BiPAP, did wear through the night. Remains on 3 L per nasal cannula, dyspneic at rest, dyspneic with conversation, and dyspneic with any minimal exertion. Slightly tachycardic with a rate of 102-2109 BPM. Other vitals are stable. Chest x-ray from 06/21/2017 was reviewed and shows Bullous emphysema, no definite acute process. CODE STATUS was again discussed with the patient, she wants to continue with full code measures, she is not opposed to mechanical ventilation. Family is inquiring about trying to get the patient improved for the home BiPAP use again. The patient is seen again today 06/22/2017 in follow-up on the selective care unit. She is currently resting quite comfortably in bed. She denies any worsening shortness of breath, cough or congestion. She continues with dyspnea on exertion however. She is currently off the BiPAP and did not wear it last night at all. She is currently maintaining O2 saturations in the mid to upper 90s on 3 L/m per nasal cannula. She's been afebrile. Blood cultures reveal no growth. She's been afebrile. She has had complaints of right lower extremity pain and has been seen by orthopedics in consultation. Objective - Vital Signs Vital signs: Vital Signs Temp 97.2 F L 06/22/17 11:25 Pulse 105 H 06/22/17 12:11 Resp 22 06/22/17 12:00 BP 148/80 06/22/17 11:25 Pulse Ox 98 06/22/17 11:25 Intake & Output 06/21/17 06/22/17 06/22/17 18:59 06:59 18:59 Intake Total 180 380 Output Total 500 200 250 Balance -320 -200 130 Weight 54.5 kg 56 kg Intake: IV 20 Invasive Line 1 20 Oral 180 360 Output: Urine 500 200 250 Other: Voiding Method Bedside Commode Bedside Commode # Voids 200 1 1 # Bowel Movements 1 - Exam GENERAL EXAM: Frail, cachectic. Alert, fairly comfortable in no apparent distress. HEAD: Normocephalic. EYES: Normal reaction of pupils, equal size. NOSE: Clear with pink turbinates. THROAT: No erythema or exudates. NECK: No masses, no JVD. CHEST: No chest wall deformity. LUNGS: Equal air entry with bilateral end expiratory wheeze. Diminished throughout. CVS: S1 and S2 normal with no audible murmur, regular rhythm. Tachycardic. ABDOMEN: No hepatosplenomegaly, normal bowel sounds, no guarding or rigidity. SPINE: No scoliosis or deformity SKIN: No rashes or there is multiple areas of ecchymosis and thin skin secondary to chronic steroid use. CENTRAL NERVOUS SYSTEM: No focal deficits, tone is normal in all 4 extremities. EXTREMITIES: There is no peripheral edema. No clubbing, no cyanosis. Peripheral pulses are intact. Changes of chronic venous stasis. - Labs CBC & Chem 7: 06/20/17 09:56 06/22/17 05:38 Labs: Abnormal Lab Results - Last 24 Hours (Table) 06/21/17 06/21/17 06/21/17 Range/Units 13:45 16:37 20:55 ABG pH 7.48 H (7.35-7.45) ABG pO2 77 L (83-108) mmHg ABG HCO3 28 H (21-25) mmol/L ABG Total CO2 29 H (19-24) mmol/L Carbon Dioxide (22-30) mmol/L BUN (7-17) mg/dL Creatinine (0.52-1.04) mg/dL Glucose (74-99) mg/dL POC Glucose (mg/dL) 154 H 157 H (75-99) mg/dL 06/22/17 06/22/17 06/22/17 Range/Units 05:38 06:16 11:46 ABG pH (7.35-7.45) ABG pO2 (83-108) mmHg ABG HCO3 (21-25) mmol/L ABG Total CO2 (19-24) mmol/L Carbon Dioxide 33 H (22-30) mmol/L BUN 20 H (7-17) mg/dL Creatinine 0.40 L (0.52-1.04) mg/dL Glucose 119 H (74-99) mg/dL POC Glucose (mg/dL) 148 H 174 H (75-99) mg/dL Microbiology - Last 24 Hours (Table) 06/20/17 09:56 Blood Culture - Preliminary Blood No Growth after 48 hours Assessment and Plan Assessment: Impression: #1 Acute exacerbation of severe oxygen dependent end-stage Gold stage III/for chronic obstructive pulmonary disease. FEV1 value 33% of predicted. #2 Chronic hypoxic and hypercapnic respiratory failure with multiple admissions for exacerbations. Currently requiring BiPAP 12/5 at 40% FiO2. #3 Hypertension, history of. #4 Hyperlipidemia. #5 Osteoporosis. #6 History of chronic tobacco dependence. Plan: The patient was seen and evaluated by Dr. Pendleton. Her chest x-ray and labs were reviewed. The patient will be admitted again today. She'll continue on BiPAP 12/5 on 40% FiO2 to maintain O2 saturations in the 90s. She'll be started on IV Solu-Medrol 60 mg every 6 hours, DuoNeb inhalations every 3 times a day and when necessary, Pulmicort and begun inhalations twice a day. Empiric antibiotics in the form of azithromycin. She is on Lovenox for DVT prophylaxis. Will add Protonix for GI prophylaxis. We'll have ongoing discussions with her and her family regarding CODE STATUS and even possible hospice referral. In the interim, we'll continue with full supportive care. We 'll continue to follow and make further recommendations based on her clinical status. I, the cosigning physician, performed a history & physical examination of the patient. Lungs sounds have bilateral end expiratory wheeze. Diminished throughout.. Maintaining good O2 saturations in the 90s on 3 L/m per nasal cannula. I discussed the assessment and plan of care with my nurse practitioner , Francia Crump. I attest to the above note as dictated by her.
--- NOTE | 2017-06-22 14:56 | P.PN ---
Subjective Progress Note Date: 06/22/17 Principal diagnosis: Acute exacerbation of end-stage chronic obstructive pulmonary disease 72-year-old female who since May 29 has had 4 admissions to the hospital with a and intubation during 1 of them as well as having end-stage COPD prognosis very poor. Patient was discharged 3 days ago found herself unable to breathe very short of breath at rest which is her baseline. Brought in with an acute COPD exacerbation. INTERVAL HISTORY: 06/22/2017: No acute overnight events was on the BiPAP overnight and is using the BiPAP off and on throughout the day. Currently on nasal cannula. Tolerating her diet, eating in between 30 and 40% of her meals, up with assistance, becomes quite winded with any type of movement any type of daily activities. As per the nursing staff report the pt has fluid collection under the skin of her left foot - dorsum - chronic - not painful but discomforting. No drainage . REVIEW OF SYSTEMS: Done for constitutional ,cardiovascular, GI, pulmonary with relevant findings as above. Objective - Vital Signs Vital signs: Vital Signs Temp 97.2 F L 06/22/17 11:25 Pulse 105 H 06/22/17 12:11 Resp 22 06/22/17 12:00 BP 148/80 06/22/17 11:25 Pulse Ox 98 06/22/17 11:25 Intake & Output 06/21/17 06/22/17 06/22/17 18:59 06:59 18:59 Intake Total 180 140 Output Total 500 200 250 Balance -320 -200 -110 Weight 54.5 kg 56 kg Intake: IV 20 Invasive Line 1 20 Oral 180 120 Output: Urine 500 200 250 Other: Voiding Method Bedside Commode Bedside Commode # Voids 200 1 1 # Bowel Movements 1 - Exam GENERAL APPEARANCE: Thin build. Sitting up in bed, anxious appearing. HENT: Normocephalic, JVD not raised. Mass not palpable. Oral cavity dry, external appearance of ears and nose normal. EYES:Pupils equal. Conjunctiva normal. RESPIRATORY: Respiratory effort increased, difficult for her to speak in full sentences. Lungs poor air entry with prolonged expiration. CARDIOVASCULAR: First and second sounds normal. No edema. ABDOMEN: Soft. Liver and spleen not palpable. No tenderness. No mass palpable. PSYCHIATRY: Alert and oriented x3. Mood and affect anxious appearing. INTEGUMENT: Diffuse bruising on upper and lower extremities. Left lower foot- areas of fluid collections on the dorsum of the foot - clear fluid filled lesions under the skin. - Labs CBC & Chem 7: 06/24/17 09:02 06/24/17 09:02 Labs: Abnormal Lab Results - Last 24 Hours (Table) 06/21/17 06/21/17 06/21/17 Range/Units 13:45 16:37 20:55 ABG pH 7.48 H (7.35-7.45) ABG pO2 77 L (83-108) mmHg ABG HCO3 28 H (21-25) mmol/L ABG Total CO2 29 H (19-24) mmol/L Carbon Dioxide (22-30) mmol/L BUN (7-17) mg/dL Creatinine (0.52-1.04) mg/dL Glucose (74-99) mg/dL POC Glucose (mg/dL) 154 H 157 H (75-99) mg/dL 06/22/17 06/22/17 06/22/17 Range/Units 05:38 06:16 11:46 ABG pH (7.35-7.45) ABG pO2 (83-108) mmHg ABG HCO3 (21-25) mmol/L ABG Total CO2 (19-24) mmol/L Carbon Dioxide 33 H (22-30) mmol/L BUN 20 H (7-17) mg/dL Creatinine 0.40 L (0.52-1.04) mg/dL Glucose 119 H (74-99) mg/dL POC Glucose (mg/dL) 148 H 174 H (75-99) mg/dL Microbiology - Last 24 Hours (Table) 06/20/17 09:56 Blood Culture - Preliminary Blood No Growth after 48 hours Assessment and Plan Assessment: - Acute exacerbation of end-stage chronic obstructive pulmonary disease in a patient with multiple admissions. -Acute chronic respiratory failure from #1. -Chronic hypoxic and hypercapnic respiratory failure. Normocytic anemia cause unknown. -Essential hypertension. -Hyperlipidemia. -Hypoalbuminemia - moderate Protein calorie malnutrition -Osteoporosis -Chronic nicotine dependence -Medical debility due to underlying chronic obstructive partner disease. - Diffuse bruising on upper and lower extremities - with easy skin peeling and clear fluid collection. PLAN: Continue continue antibiotics in the form of Zithromax nebulized bronchodilators and IV steroid., family is very interested in getting the patient approved for home BiPAP use. Patient continues to want remain a full code . we will continue to follow closely.
[2017-06-22 17:06] LABS: Glucose,Whole Blood 165 mg/dL (75-99)
[2017-06-22] MEDS: CHOLECALCIFEROL 1,000 UNIT TAB PO SCH (17:36)
[2017-06-22] MEDS: FUROSEMIDE 20 MG TAB PO SCH (17:37)
[2017-06-22 21:09] LABS: Glucose,Whole Blood 158 mg/dL (75-99)
[2017-06-23 06:22] LABS: Glucose,Whole Blood 119 mg/dL (75-99)
[2017-06-23] MEDS: INSULIN ASPART 100 UNIT/ML 1 ML 10 ML VIAL SQ SCH ×4 (06:23→21:19)
[2017-06-23] MEDS: methylPREDNISolone SOD SUCCI 125 MG/2 ML VIAL IV SCH ×2 (06:25→12:14)
[2017-06-23] MEDS: PANTOPRAZOLE 40 MG TABLET PO SCH ×2 (06:25→06:30)
[2017-06-23 07:10] LABS: Blood Urea Nitrogen 17 mg/dL (7-17); Chloride 95 mmol/L (98-107); Glucose 93 mg/dL (74-99); Potassium 3.3 mmol/L (3.5-5.1); Sodium 143 mmol/L (137-145)
[2017-06-23 07:16] LABS: Anion Gap 9 mmol/L
[2017-06-23 07:22] LABS: Carbon Dioxide 39 mmol/L (22-30)
[2017-06-23] MEDS: ALPRAZolam 0.25 MG TAB PO SCH ×3 (08:34→21:19)
[2017-06-23] MEDS: AZITHROMYCIN 500 MG TAB PO SCH (08:34)
[2017-06-23] MEDS: ISOSORBIDE MONONITRATE ER 30 MG TAB.ER.24H PO SCH (08:34)
[2017-06-23] MEDS: THEOPHYLLINE 24 HOUR 300 MG CAP.ER.24H PO SCH (08:34)
[2017-06-23] MEDS: LISINOPRIL 20 MG TAB PO SCH ×2 (08:34→21:18)
[2017-06-23] MEDS: ENOXAPARIN 40 MG/0.4 ML SYRINGE SQ SCH (08:34)
[2017-06-23] MEDS: NYSTATIN 100,000 UNIT/ML SUSP 500,000 UNIT/5 ML CUP PO SCH ×4 (08:34→21:19)
[2017-06-23] MEDS: FORMOTEROL FUMARATE 20 MCG/2 ML NEBU INHALATION SCH ×2 (09:08→19:14)
[2017-06-23] MEDS: BUDESONIDE 1 MG/2 ML NEBU INHALATION SCH ×2 (09:08→19:14)
[2017-06-23] MEDS: IPRATROPIUM-ALBUTEROL 3 ML NEB INHALATION SCH ×4 (09:08→19:14)
[2017-06-23 12:33] LABS: Glucose,Whole Blood 148 mg/dL (75-99)
--- NOTE | 2017-06-23 13:48 | PN ---
PROGRESS NOTE DATE OF SERVICE: 06/21/17 ATTENDING NOTE: Patient seen and examined by me on June 21, 2017. Discussed with my nurse practitioner Ms. Conner. The patient is sitting up in a chair, short of breath at rest. PHYSICAL EXAMINATION: Temperature 97.1, pulse 105, respirations 20, blood pressure 130/86, pulse ox 94% on 3 L. sitting up in a chair. Short of breath at rest, using accessory muscles. LUNGS: Poor air entry, not able to speak in full sentences. Blood gases were done in the afternoon. Accu-Cheks noted. ASSESSMENT: Acute severe end-stage chronic obstructive pulmonary disease, acute on chronic hypoxic respiratory failure from above slow to respond. PLAN: Continue with antibiotics, nebulized bronchodilators, steroids. Follow with Pulmonary. I did suggest to the patient that due to condition, the patient may want to look into hospice. She needs to talk this with her chief innovation officer and Dr. Pendleton's team to whom she is very well known. Prognosis not good. MMRAEGANL / FABYN: [id number] /
--- NOTE | 2017-06-23 14:17 | P.PN ---
Subjective Progress Note Date: 06/23/17 Principal diagnosis: Severe shortness of breath and COPD Progress note dated 06/23/2017 This is a 72-year-old female well-known to our service with severe end-stage COPD. She has stage III/stage IV disease with an FEV1 that is 33% of predicted. She has chronic hypoxemic respiratory failure. She does use BiPAP from time to time but 12/5 and 40%. In addition, she has a recent episode of acute respiratory failure requiring intubation and short-term mechanical ventilation. She also has a history of hypertension hyperlipidemia osteoporosis and history of chronic tobacco dependence. The patient still is a full code. We will discuss this with her many times. From my perspective, the patient is at baseline. She could be transferred down to a general medical floor. Objective - Vital Signs Vital signs: Vital Signs Temp 96.5 F L 06/23/17 11:32 Pulse 92 06/23/17 13:05 Resp 20 06/23/17 11:32 BP 130/70 06/23/17 11:32 Pulse Ox 94 L 06/23/17 11:32 Intake & Output 06/22/17 06/23/17 06/23/17 18:59 06:59 18:59 Intake Total 620 652 Output Total 250 250 100 Balance 370 -250 552 Weight 53.9 kg Intake: IV 20 Invasive Line 1 20 Oral 600 652 Output: Urine 250 250 100 Other: Voiding Method Bedside Commode Bedside Commode # Voids 1 1 # Bowel Movements 1 1 - Exam No acute distress, oriented 3. The patient does suffer from conversational dyspnea. HEENT examination is grossly unremarkable. Mucous membranes are moist. No oral lesions. Neck supple. Full range of motion. No adenopathy thyromegaly or neck vein distention. Cardiovascular examination reveals regular rhythm rate. S1-S2 normal. No S3 or S4. No discernible murmur noted. Lungs reveal severely diminished breath sounds. Breath sounds are equal. There is coarse expiratory rhonchi and some expiratory wheezes as well. No crackles. Abdomen soft bowel sounds are heard. No masses or tenderness. Extremities are intact. No cyanosis clubbing or edema. Skin has multiple areas of ecchymoses. Neurologic examination is brief but nonfocal. - Labs CBC & Chem 7: 06/20/17 09:56 06/23/17 06:36 Labs: Abnormal Lab Results - Last 24 Hours (Table) 06/22/17 06/22/17 06/23/17 Range/Units 17:01 21:00 06:21 Potassium (3.5-5.1) mmol/L Chloride (98-107) mmol/L Carbon Dioxide (22-30) mmol/L Creatinine (0.52-1.04) mg/dL POC Glucose (mg/dL) 165 H 158 H 119 H (75-99) mg/dL 06/23/17 06/23/17 Range/Units 06:36 11:35 Potassium 3.3 L (3.5-5.1) mmol/L Chloride 95 L (98-107) mmol/L Carbon Dioxide 39 H (22-30) mmol/L Creatinine 0.38 L (0.52-1.04) mg/dL POC Glucose (mg/dL) 148 H (75-99) mg/dL Microbiology - Last 24 Hours (Table) 06/20/17 09:56 Blood Culture - Preliminary Blood No Growth after 72 hours Assessment and Plan Assessment: Assessment Severe oxygen and steroid dependent COPD with an FEV1 that is about 30% of predicted Chronic hypoxemic and hypercapnic respiratory failure with intermittent BiPAP for respiratory support Recent episode of ryan respiratory failure requiring intubation and short-term mechanical ventilation Hypertension Hyperlipidemia Osteoporosis History of chronic tobacco dependence Plan: Plan dated 06/23/2017 The patient is very ill with a very poor prognosis. Despite this, the patient continues to want to be a full code. We have had multiple discussions with her and her family members. The patient's medications are reviewed. Labs and x- rays are reviewed. The patient could be transferred down to the general medical floor. No additional recommendations are made. Again prognosis is very poor. Time with Patient: Less than 30
[2017-06-23] MEDS ORDERED: Potassium Replacement Protocol 1 EACH MISC MISCELLANE PRN ×2 (16:55→16:58)
[2017-06-23 17:15] LABS: Glucose,Whole Blood 137 mg/dL (75-99)
[2017-06-23] MEDS: CHOLECALCIFEROL 1,000 UNIT TAB PO SCH (17:20)
[2017-06-23] MEDS: POTASSIUM CHLORIDE ER 20 MEQ TAB.ER PO SCH ×2 (17:24→18:19)
[2017-06-23] MEDS: methylPREDNISolone SOD SUCCI 40 MG/ML 1 ML VIAL IV SCH ×2 (17:25→23:49)
[2017-06-23 21:15] LABS: Glucose,Whole Blood 167 mg/dL (75-99)
[2017-06-23] MEDS: IPRATROPIUM-ALBUTEROL 3 ML NEB INHALATION PRN (23:47)
[2017-06-24] MEDS: methylPREDNISolone SOD SUCCI 40 MG/ML 1 ML VIAL IV SCH ×2 (06:27→15:46)
[2017-06-24] MEDS: IPRATROPIUM-ALBUTEROL 3 ML NEB INHALATION SCH ×4 (07:20→19:29)
[2017-06-24] MEDS: FORMOTEROL FUMARATE 20 MCG/2 ML NEBU INHALATION SCH ×2 (07:20→19:27)
[2017-06-24] MEDS: BUDESONIDE 1 MG/2 ML NEBU INHALATION SCH ×2 (07:20→19:27)
[2017-06-24 07:37] LABS: Glucose,Whole Blood 111 mg/dL (75-99)
[2017-06-24] MEDS: INSULIN ASPART 100 UNIT/ML 1 ML 10 ML VIAL SQ SCH ×4 (09:12→21:45)
[2017-06-24 09:29] LABS: Blood Urea Nitrogen 18 mg/dL (7-17); Calcium 9.4 mg/dL (8.4-10.2); Chloride 94 mmol/L (98-107); Glucose 139 mg/dL (74-99); Potassium 4.4 mmol/L (3.5-5.1); Sodium 141 mmol/L (137-145)
[2017-06-24 09:36] LABS: Anion Gap 5 mmol/L
[2017-06-24 09:42] LABS: Carbon Dioxide 42 mmol/L (22-30)
[2017-06-24 09:43] LABS: HCT 41.3 % (34.0-46.0); HGB 13.1 gm/dL (11.4-16.0); MCHC 31.8 g/dL (31.0-37.0); MCV 100.5 fL (80.0-100.0); Macrocytosis Slight; Mean Platelet Volume 8.3; Platelet Count 253 k/uL (150-450); RBC 4.11 m/uL (3.80-5.40); RDW 14.8 % (11.5-15.5)
[2017-06-24] MEDS: NYSTATIN 100,000 UNIT/ML SUSP 500,000 UNIT/5 ML CUP PO SCH ×4 (10:02→21:45)
[2017-06-24] MEDS: AZITHROMYCIN 500 MG TAB PO SCH (10:02)
[2017-06-24] MEDS: THEOPHYLLINE 24 HOUR 300 MG CAP.ER.24H PO SCH (10:02)
[2017-06-24] MEDS: ALPRAZolam 0.25 MG TAB PO SCH ×3 (10:02→21:45)
[2017-06-24] MEDS: PANTOPRAZOLE 40 MG TABLET PO SCH (10:02)
[2017-06-24] MEDS: ENOXAPARIN 40 MG/0.4 ML SYRINGE SQ SCH (10:03)
[2017-06-24] MEDS: LISINOPRIL 20 MG TAB PO SCH ×2 (10:03→21:45)
[2017-06-24] MEDS: ISOSORBIDE MONONITRATE ER 30 MG TAB.ER.24H PO SCH (10:03)
--- NOTE | 2017-06-24 10:05 | P.PN ---
Subjective Progress Note Date: 06/24/17 Principal diagnosis: Acute exacerbation of severe oxygen-dependent end-stage Gold stage III COPD This is a very pleasant 72-year-old female patient who follows with Dr. Cummings as her primary care physician. She has a history of hypertension, hyperlipidemia. She also has a history of severe oxygen dependent Gold stage III/for chronic obstructive pulmonary disease. Her FEV1 value is 33% of predicted. She follows with Dr. Parker in our office for the same. She has been maintained on Combivent, Spiriva, theophylline and albuterol in the outpatient setting. She has had multiple admissions to the hospital for COPD exacerbations. She most recently was here and had ventilatory dependent respiratory failure. She was subsequently recovered and discharged home on . She re-presented to the emergency room today 06/20/2017 with complaints of increasing shortness of breath, cough and congestion. Her chest x -ray reveals elevated and so of bolus emphysema and chronic parenchymal changes but no acute pulmonary process. She is currently seen in the emergency room. She is on BiPAP at 12/5 and 40% FiO2 to maintain O2 saturations in the 90s. She is awake and alert. She is in moderate respiratory distress. Dr. Parker had spoken to her in the past regarding CODE STATUS and she continues to wish to remain a full code. She is currently hypotensive and receiving fluid boluses. She is tachycardic. She is afebrile. No leukocytosis. Hemoglobin 13.8. Bicarb 41 which is good for her. Creatinine 0.45. ProBNP 320. Troponin 0.012. On 06/21/2017 patient seen in follow-up on selective care unit. Currently off the BiPAP, did wear through the night. Remains on 3 L per nasal cannula, dyspneic at rest, dyspneic with conversation, and dyspneic with any minimal exertion. Slightly tachycardic with a rate of 102-2109 BPM. Other vitals are stable. Chest x-ray from 06/21/2017 was reviewed and shows Bullous emphysema, no definite acute process. CODE STATUS was again discussed with the patient, she wants to continue with full code measures, she is not opposed to mechanical ventilation. Family is inquiring about trying to get the patient improved for the home BiPAP use again. On 06/24/2017 patient seen in follow-up on medical surgical floor. Lung sounds are diminished with a few scattered wheezes, but overall much improved since admission. She did wear her BiPAP last night, with pressures of 12/5 and 40%. She is able to get up and go to the bedside commode, but that has been the extent of her activity. Still becomes very short of breath. No significant cough or sputum production. Febrile, vital signs are stable, currently on 3 L per nasal cannula O2 sat at 94%. Cultures show no growth at the 72 hour martita. I work has been reviewed, WBCs within normal limits 10.6, hemoglobin is 13.1, sodium is 141, potassium is 4.4, chloride is 94, carbon dioxide is 42, B1 is 18 , and creatinine is 0.41. No acute events overnight. Discharge planning is in progress for discharge to [facility] and rehab. Objective - Vital Signs Vital signs: Vital Signs Temp 97.1 F L 06/24/17 07:00 Pulse 92 06/24/17 07:45 Resp 22 06/24/17 07:00 BP 177/92 06/24/17 07:00 Pulse Ox 94 L 06/24/17 07:00 Intake & Output 06/23/17 06/24/17 06/24/17 18:59 06:59 18:59 Intake Total 1185 200 Output Total 500 Balance 685 200 Intake: Oral 1185 200 Output: Urine 500 Other: Voiding Method Bedside Commode # Voids 2 # Bowel Movements 1 2 - Exam GENERAL EXAM: Frail, cachectic. Alert, fairly comfortable in no apparent distress. HEAD: Normocephalic. EYES: Normal reaction of pupils, equal size. NOSE: Clear with pink turbinates. THROAT: No erythema or exudates. NECK: No masses, no JVD. CHEST: No chest wall deformity. LUNGS: Equal air entry with bilateral end expiratory wheeze. Diminished throughout. CVS: S1 and S2 normal with no audible murmur, regular rhythm. Tachycardic. ABDOMEN: No hepatosplenomegaly, normal bowel sounds, no guarding or rigidity. SPINE: No scoliosis or deformity SKIN: No rashes or there is multiple areas of ecchymosis and thin skin secondary to chronic steroid use. CENTRAL NERVOUS SYSTEM: No focal deficits, tone is normal in all 4 extremities. EXTREMITIES: There is no peripheral edema. No clubbing, no cyanosis. Peripheral pulses are intact. Changes of chronic venous stasis. - Labs CBC & Chem 7: 06/24/17 09:02 06/24/17 09:02 Labs: Abnormal Lab Results - Last 24 Hours (Table) 06/23/17 06/23/17 06/23/17 Range/Units 11:35 17:11 21:11 MCV (80.0-100.0) fL Chloride (98-107) mmol/L Carbon Dioxide (22-30) mmol/L BUN (7-17) mg/dL Creatinine (0.52-1.04) mg/dL Glucose (74-99) mg/dL POC Glucose (mg/dL) 148 H 137 H 167 H (75-99) mg/dL 06/24/17 06/24/17 06/24/17 Range/Units 07:11 09:02 09:02 MCV 100.5 H (80.0-100.0) fL Chloride 94 L (98-107) mmol/L Carbon Dioxide 42 H* (22-30) mmol/L BUN 18 H (7-17) mg/dL Creatinine 0.41 L (0.52-1.04) mg/dL Glucose 139 H (74-99) mg/dL POC Glucose (mg/dL) 111 H (75-99) mg/dL Microbiology - Last 24 Hours (Table) 06/20/17 09:56 Blood Culture - Preliminary Blood No Growth after 72 hours Assessment and Plan Plan: Assessment: #1 Acute exacerbation of severe oxygen dependent end-stage Gold stage III/for chronic obstructive pulmonary disease. FEV1 value 33% of predicted. #2 Chronic hypoxic and hypercapnic respiratory failure with multiple admissions for exacerbations. Currently requiring BiPAP 12/5 at 40% FiO2. #3 Hypertension, history of. #4 Hyperlipidemia. #5 Osteoporosis. #6 History of chronic tobacco dependence. Plan: Patient is stable from pulmonary standpoint, signs are stable, afebrile. Microbiology has been negative so far. Lab work has been reviewed. Acute events overnight. Overall her lung sounds better since admission, still some scattered end expiratory wheezing, but good air entry bilaterally. Denies worsening dyspnea, although remains with significant impairment of exercise capacity due to her advanced COPD. Continue with her current medical treatments. I performed a history & physical examination of the patient and discussed their management with my nurse practitioner, Chani Toney. I reviewed the nurse practitioner's note and agree with the documented findings and plan of care. Lung sounds are positive for scattered wheezes throughout the lung kent. The findings and the impression was discussed with the patient. I attest to the documentation by the nurse practitioner. Time with Patient: Less than 30
[2017-06-24 11:11] LABS: Band Neutrophils % 1 %; Metamyelocytes % 1 %; Myelocytes % 1 %; Neutrophils % (M) 89 %; Nucleated Red Blood Cells 2 /100 WBC (0-0); Total Cells Counted 200
[2017-06-24 11:12] LABS: Lymphocytes # (M) 0.52 k/uL (1.0-4.8); Monocytes # (M) 0.52 k/uL (0-1.0); WBC 10.4 k/uL (3.8-10.6)
[2017-06-24 11:13] LABS: Polychromasia Present
[2017-06-24 12:27] LABS: Glucose,Whole Blood 126 mg/dL (75-99)
[2017-06-24] MEDS ORDERED: FLUTICASONE 50MCG/SPRAY NASAL 16GM EA NOSTRIL PRN (14:32)
--- NOTE | 2017-06-24 17:37 | P.PN ---
Subjective Progress Note Date: 06/23/17 Principal diagnosis: Acute exacerbation of end-stage chronic obstructive pulmonary disease 72-year-old female who since May 29 has had 4 admissions to the hospital with a and intubation during 1 of them as well as having end-stage COPD prognosis very poor. Patient was discharged 3 days ago found herself unable to breathe very short of breath at rest which is her baseline. Brought in with an acute COPD exacerbation. INTERVAL HISTORY: 06/22/2017: No acute overnight events was on the BiPAP overnight and is using the BiPAP off and on throughout the day. Currently on nasal cannula. Tolerating her diet, eating in between 30 and 40% of her meals, up with assistance, becomes quite winded with any type of movement any type of daily activities. As per the nursing staff report the pt has fluid collection under the skin of her left foot - dorsum - chronic - not painful but discomforting. No drainage . 06/23/17 - Pt feels better than yesterday in terms of her breathing. No active complains of fever,chills or rigors. No cheat pain or palpitations. No adb pain nausea, vomiting or diarrhea. REVIEW OF SYSTEMS: Done for constitutional ,cardiovascular, GI, pulmonary with relevant findings as above. Objective - Vital Signs Vital signs: Vital Signs Temp 98.0 F 06/23/17 18:37 Pulse 104 H 06/23/17 19:51 Resp 18 06/23/17 18:37 BP 149/78 06/23/17 18:37 Pulse Ox 93 L 06/23/17 19:14 Intake & Output 06/23/17 06/23/17 06/24/17 06:59 18:59 06:59 Intake Total 1185 Output Total 250 500 Balance -250 685 Weight 53.9 kg Intake: Oral 1185 Output: Urine 250 500 Other: Voiding Method Bedside Commode # Voids 1 # Bowel Movements 1 - Exam GENERAL APPEARANCE: Thin build. Sitting up in bed, anxious appearing. HENT: Normocephalic, JVD not raised. Mass not palpable. Oral cavity dry, external appearance of ears and nose normal. EYES:Pupils equal. Conjunctiva normal. RESPIRATORY: Lungs poor air entry with end expiratory wheezing CARDIOVASCULAR: First and second sounds normal. No edema. ABDOMEN: Soft. Liver and spleen not palpable. No tenderness. No mass palpable. PSYCHIATRY: Alert and oriented x3. Mood and affect anxious appearing. INTEGUMENT: Diffuse bruising on upper and lower extremities. Left lower foot- areas of fluid collections on the dorsum of the foot drained yesterday - Labs CBC & Chem 7: 06/20/17 09:56 06/23/17 06:36 Labs: Abnormal Lab Results - Last 24 Hours (Table) 06/23/17 06/23/17 06/23/17 Range/Units 06:21 06:36 11:35 Potassium 3.3 L (3.5-5.1) mmol/L Chloride 95 L (98-107) mmol/L Carbon Dioxide 39 H (22-30) mmol/L Creatinine 0.38 L (0.52-1.04) mg/dL POC Glucose (mg/dL) 119 H 148 H (75-99) mg/dL 06/23/17 06/23/17 Range/Units 17:11 21:11 Potassium (3.5-5.1) mmol/L Chloride (98-107) mmol/L Carbon Dioxide (22-30) mmol/L Creatinine (0.52-1.04) mg/dL POC Glucose (mg/dL) 137 H 167 H (75-99) mg/dL Microbiology - Last 24 Hours (Table) 06/20/17 09:56 Blood Culture - Preliminary Blood No Growth after 72 hours Assessment and Plan Assessment: - Acute exacerbation of end-stage chronic obstructive pulmonary disease in a patient with multiple admissions. -Acute chronic respiratory failure from #1. -Chronic hypoxic and hypercapnic respiratory failure. Normocytic anemia cause unknown. -Essential hypertension. -Hyperlipidemia. -Hypoalbuminemia - moderate Protein calorie malnutrition -Osteoporosis -Chronic nicotine dependence -Medical debility due to underlying chronic obstructive partner disease. - Diffuse bruising on upper and lower extremities - with easy skin peeling and clear fluid collection. - Hypokalemia PLAN: Continue continue antibiotics in the form of Zithromax , nebulized bronchodilators and IV steroid. K supplements given. Patient continues to want to remain a full code . We will continue to follow closely. Awaiting SARAH/ NH placement.
[2017-06-24 17:46] LABS: Glucose,Whole Blood 183 mg/dL (75-99)
[2017-06-24] MEDS: CHOLECALCIFEROL 1,000 UNIT TAB PO SCH (18:24)
[2017-06-24] MEDS: FUROSEMIDE 20 MG TAB PO SCH (18:25)
[2017-06-24 21:48] LABS: Glucose,Whole Blood 147 mg/dL (75-99)
[2017-06-25] MEDS: methylPREDNISolone SOD SUCCI 40 MG/ML 1 ML VIAL IV SCH ×2 (00:50→08:15)
[2017-06-25] MEDS: IPRATROPIUM-ALBUTEROL 3 ML NEB INHALATION PRN (00:56)
[2017-06-25] MEDS: IPRATROPIUM-ALBUTEROL 3 ML NEB INHALATION SCH ×2 (07:30→11:18)
[2017-06-25] MEDS: FORMOTEROL FUMARATE 20 MCG/2 ML NEBU INHALATION SCH (07:30)
[2017-06-25] MEDS: BUDESONIDE 1 MG/2 ML NEBU INHALATION SCH (07:30)
[2017-06-25] MEDS: INSULIN ASPART 100 UNIT/ML 1 ML 10 ML VIAL SQ SCH ×2 (07:34→12:49)
[2017-06-25 07:45] LABS: Glucose,Whole Blood 99 mg/dL (75-99)
[2017-06-25 08:05] VITALS: BP 168/86; RESP 22; TEMP 96.9
[2017-06-25] MEDS: PANTOPRAZOLE 40 MG TABLET PO SCH (08:14)
[2017-06-25] MEDS: ENOXAPARIN 40 MG/0.4 ML SYRINGE SQ SCH (08:15)
[2017-06-25] MEDS: AZITHROMYCIN 500 MG TAB PO SCH (08:15)
[2017-06-25] MEDS: ALPRAZolam 0.25 MG TAB PO SCH (08:15)
[2017-06-25] MEDS: ISOSORBIDE MONONITRATE ER 30 MG TAB.ER.24H PO SCH (08:15)
[2017-06-25] MEDS: NYSTATIN 100,000 UNIT/ML SUSP 500,000 UNIT/5 ML CUP PO SCH ×2 (08:16→12:49)
[2017-06-25] MEDS: THEOPHYLLINE 24 HOUR 300 MG CAP.ER.24H PO SCH (08:16)
[2017-06-25] MEDS: LISINOPRIL 20 MG TAB PO SCH (08:16)
[2017-06-25 11:22] VITALS: PULSE 100
[2017-06-25 12:16] LABS: Glucose,Whole Blood 160 mg/dL (75-99)
--- NOTE | 2017-06-25 12:27 | P.PN ---
Subjective Progress Note Date: 06/25/17 Principal diagnosis: Acute exacerbation of severe oxygen-dependent end-stage Gold stage III COPD This is a very pleasant 72-year-old female patient who follows with Dr. Cummings as her primary care physician. She has a history of hypertension, hyperlipidemia. She also has a history of severe oxygen dependent Gold stage III/for chronic obstructive pulmonary disease. Her FEV1 value is 33% of predicted. She follows with Dr. Parker in our office for the same. She has been maintained on Combivent, Spiriva, theophylline and albuterol in the outpatient setting. She has had multiple admissions to the hospital for COPD exacerbations. She most recently was here and had ventilatory dependent respiratory failure. She was subsequently recovered and discharged home on . She re-presented to the emergency room today 06/20/2017 with complaints of increasing shortness of breath, cough and congestion. Her chest x -ray reveals elevated and so of bolus emphysema and chronic parenchymal changes but no acute pulmonary process. She is currently seen in the emergency room. She is on BiPAP at 12/5 and 40% FiO2 to maintain O2 saturations in the 90s. She is awake and alert. She is in moderate respiratory distress. Dr. Parker had spoken to her in the past regarding CODE STATUS and she continues to wish to remain a full code. She is currently hypotensive and receiving fluid boluses. She is tachycardic. She is afebrile. No leukocytosis. Hemoglobin 13.8. Bicarb 41 which is good for her. Creatinine 0.45. ProBNP 320. Troponin 0.012. On 06/21/2017 patient seen in follow-up on selective care unit. Currently off the BiPAP, did wear through the night. Remains on 3 L per nasal cannula, dyspneic at rest, dyspneic with conversation, and dyspneic with any minimal exertion. Slightly tachycardic with a rate of 102-2109 BPM. Other vitals are stable. Chest x-ray from 06/21/2017 was reviewed and shows Bullous emphysema, no definite acute process. CODE STATUS was again discussed with the patient, she wants to continue with full code measures, she is not opposed to mechanical ventilation. Family is inquiring about trying to get the patient improved for the home BiPAP use again. On 06/24/2017 patient seen in follow-up on medical surgical floor. Lung sounds are diminished with a few scattered wheezes, but overall much improved since admission. She did wear her BiPAP last night, with pressures of 12/5 and 40%. She is able to get up and go to the bedside commode, but that has been the extent of her activity. Still becomes very short of breath. No significant cough or sputum production. Febrile, vital signs are stable, currently on 3 L per nasal cannula O2 sat at 94%. Cultures show no growth at the 72 hour martita. I work has been reviewed, WBCs within normal limits 10.6, hemoglobin is 13.1, sodium is 141, potassium is 4.4, chloride is 94, carbon dioxide is 42, B1 is 18 , and creatinine is 0.41. No acute events overnight. Discharge planning is in progress for discharge to [facility] nursing and rehab. On 06/25/2017 patient seen in follow-up on medical surgical floor. She is doing well, reports improvement in terms of her dyspnea and activity tolerance. Has been able to walk around the bed, tolerated it well. She is inquiring about a walker with rolling wheels and seat. He is a stable, currently on 3 days per nasal cannula with O2 sat at 96%. Afebrile. Blood culture is negative since admission. Lung sounds are positive for diminished air entry bilaterally, with a few scattered rhonchi. Tolerating oral intake, her appetite is good. Discharge planning is in progress for discharge back to [facility] nursing and rehab today. We'll need follow-up with Dr. Parker in the office in one week. Objective - Vital Signs Vital signs: Vital Signs Temp 96.9 F L 06/25/17 07:00 Pulse 100 06/25/17 11:30 Resp 22 06/25/17 07:00 BP 168/86 06/25/17 07:00 Pulse Ox 96 06/25/17 07:00 Intake & Output 06/24/17 06/25/17 06/25/17 18:59 06:59 18:59 Intake Total 240 400 Balance 240 400 Intake: Oral 240 400 Other: Voiding Method Bedside Commode # Voids 2 4 2 # Bowel Movements 1 - Exam GENERAL EXAM: Frail, cachectic. Alert, fairly comfortable in no apparent distress. HEAD: Normocephalic. EYES: Normal reaction of pupils, equal size. NOSE: Clear with pink turbinates. THROAT: No erythema or exudates. NECK: No masses, no JVD. CHEST: No chest wall deformity. LUNGS: Equal air entry with no wheezes, a few scattered rhonchi. Diminished throughout. CVS: S1 and S2 normal with no audible murmur, regular rhythm. Tachycardic. ABDOMEN: No hepatosplenomegaly, normal bowel sounds, no guarding or rigidity. SPINE: No scoliosis or deformity SKIN: No rashes or there is multiple areas of ecchymosis and thin skin secondary to chronic steroid use. CENTRAL NERVOUS SYSTEM: No focal deficits, tone is normal in all 4 extremities. EXTREMITIES: There is no peripheral edema. No clubbing, no cyanosis. Peripheral pulses are intact. Changes of chronic venous stasis. - Labs CBC & Chem 7: 06/24/17 09:02 06/24/17 09:02 Labs: Abnormal Lab Results - Last 24 Hours (Table) 06/24/17 06/24/17 06/24/17 Range/Units 11:36 17:29 21:34 POC Glucose (mg/dL) 126 H 183 H 147 H (75-99) mg/dL 06/25/17 Range/Units 11:56 POC Glucose (mg/dL) 160 H (75-99) mg/dL Microbiology - Last 24 Hours (Table) 06/20/17 09:56 Blood Culture - Preliminary Blood No Growth after 120 hours Assessment and Plan Plan: Assessment: #1 Acute exacerbation of severe oxygen dependent end-stage Gold stage III/for chronic obstructive pulmonary disease. FEV1 value 33% of predicted. #2 Chronic hypoxic and hypercapnic respiratory failure with multiple admissions for exacerbations. Currently requiring BiPAP 12/5 at 40% FiO2. #3 Hypertension, history of. #4 Hyperlipidemia. #5 Osteoporosis. #6 History of chronic tobacco dependence. Plan: Patient is stable from pulmonary standpoint, continues to improve vital signs are stable, afebrile. Microbiology has been negative so far. Lab work has been reviewed. Denies worsening dyspnea, although remains with significant impairment of exercise capacity due to her advanced COPD. Stable for discharge to acute rehab today. I performed a history & physical examination of the patient and discussed their management with my nurse practitioner, Chani Toney. I reviewed the nurse practitioner's note and agree with the documented findings and plan of care. Lung sounds are diminished. The findings and the impression was discussed with the patient. I attest to the documentation by the nurse practitioner. Time with Patient: Less than 30
--- NOTE | 2017-06-25 14:04 | DS ---
DISCHARGE SUMMARY DATE OF ADMISSION: 06/20/2017. DATE OF DISCHARGE: 06/25/2017. DISCHARGE DIAGNOSES: 1. Acute exacerbation, oxygen-dependent end-stage COPD. Chronic hypoxic and hypercapnic respiratory failure. 2. Essential hypertension. 3. Hyperlipidemia. 4. Osteoporosis. 5. Hypoalbuminemia. 6. Chronic nicotine dependence. BRIEF HISTORY ON THIS PATIENT: This is a 72-year-old female patient with multiple admissions for her end-stage COPD since May. She has had 4 admissions with intubation and during one of the admissions, the patient was recently discharged from the hospital but presented again to the hospital with a complaint of inability to breathe. She was admitted for acute exacerbation of chronic obstructive pulmonary disease. BRIEF HOSPITAL COURSE: Patient was the patient was started on overnight and BiPAP, IV Solu-Medrol, nebulizer treatments with bronchodilators. She was also started on Zithromax. Pulmonary consultation was done. The patient did show slow improvement to above treatment. Her steroids were tapered by Pulmonary Medicine. Activity was slightly increased. Patient's steroids were switched to oral. The patient did not have any complications with that. She has remained stable. On day of discharge she is sitting up in the bedside chair, slightly anxious and denies any respiratory distress. HEENT atraumatic, normocephalic. Pupils equal and reactive to light. Extraocular movements intact. Buccal mucosa is fair. Neck is supple. No goiter or lymphadenopathy. JVD is negative. No carotid bruit heard. Respiratory; lungs are decreased air entry, but no wheezing or rhonchi. Cardiovascular; heart is regular rate and rhythm without any murmurs gallop rhythm. Abdomen is soft, nontender, nondistended. Bowel sounds positive. Neurological examination: Cranial nerves 2-12 grossly intact. No gross motor sensory deficit. Musculoskeletal patient moves all extremities. No peripheral edema. DISCHARGE MEDICATIONS: The patient is started on oral prednisone and she was also started on Xanax 0.25 mg in t.i.d. for anxiety. The patient is being continued on albuterol inhaler 2 puffs q.i.d. p.r.n., to Dulcolax 10 mg rectally p.r.n. Pulmicort 1 inhalation twice a day, vitamin D3 2000 units oral daily, Perforomist 20 mcg inhalation b.i.d., Lasix 20 mg 1 tablet every 48 hours, albuterol DuoNeb inhalation treatments q.i.d. Imdur 30 mg p.o. daily, lisinopril 20 mg p.o. daily, magnesium oxide 240 mg p.o. daily p.r.n., nystatin 50/100,000 units 5 cc orally q.i.d. and Protonix 40 mg p.o. daily, theophylline 300 mg p.o. every 24 hours. The patient is being discharged in a stable condition and she will she will be transferred to [facility] and she will follow up with Dr. Gumaro Cummings in 1 week. MMODL / IJN: [id number] /
== END 2017-06-25 13:55 | DRG 190 ==
LOC: EC 09:44 → 6SEL 10:51 → 4MS4W 06-23 18:27
PROVIDERS: ADMIT Hospitalist; ATTEND Hospitalist
DX: J44.1 Chronic obstructive pulmonary disease with (acute) exacerbation (principal); J96.21 Acute and chronic respiratory failure with hypoxia; E44.0 Moderate protein-calorie malnutrition; J96.12 Chronic respiratory failure with hypercapnia; I95.9 Hypotension, unspecified; Z99.81 Dependence on supplemental oxygen; D64.9 Anemia, unspecified; S40.029A Contusion of unspecified upper arm, initial encounter; E87.6 Hypokalemia; I10 Essential (primary) hypertension; E78.5 Hyperlipidemia, unspecified; H26.9 Unspecified cataract; H40.9 Unspecified glaucoma; S90.822A Blister (nonthermal), left foot, initial encounter; S80.10XA Contusion of unspecified lower leg, initial encounter; M81.0 Age-related osteoporosis without current pathological fracture; G43.909 Migraine, unspecified, not intractable, without status migrainosus; F41.9 Anxiety disorder, unspecified; Z79.51 Long term (current) use of inhaled steroids; Z79.52 Long term (current) use of systemic steroids; Z79.899 Other long term (current) drug therapy; Z87.440 Personal history of urinary (tract) infections; Z88.8 Allergy status to other drugs, medicaments and biological substances; Z88.1 Allergy status to other antibiotic agents; Z91.040 Latex allergy status; Z87.891 Personal history of nicotine dependence; Z86.19 Personal history of other infectious and parasitic diseases; Z87.01 Personal history of pneumonia (recurrent)
CPT/HCPCS: 36415; 36600; 71045; 80048; 80053; 82550; 82553; 82805; 83735; 83880; 84484; 85025; 85610; 85730; 87040; 93005; 94640; 94644; 94660; 94760; 96360; 96361; 96374; 96375; 99291